=== PATIENT | female | born 1965 | race Caucasian/White ===

== ENCOUNTER 2023-04-17 16:21 | Outpatient (OUT) | payer BC, SELFPAY ==
[2023-04-17 17:07] LABS: Thyroid Stimulating Hormone 3.075 uIU/mL (0.358-3.740)
== END 2023-04-17 16:22 | disposition home or self-care (01) ==
LOC: LAB 16:21
PROVIDERS: PCP Nurse Practitioner; Visit Provider Otolaryngology
DX: E03.9 Hypothyroidism, unspecified (principal)
CPT/HCPCS: 36415; 84443

== ENCOUNTER 2023-08-17 10:16 | Outpatient (OUT) | payer BC, SELFPAY ==
[2023-08-17 10:50] LABS: Basophils Percent Auto 0.4 % (0.2-2.0); Eosinophils Absolute Auto 0.1 10^3/uL (0.0-0.7); Eosinophils Percent Auto 1.6 % (0.9-7.0); Hematocrit 35.6 % (36.0-48.0); Immature Granulocytes Abs Auto 0.01 10^3/uL (0.00-0.03); Immature Granulocytes Pct Auto 0.1 % (0.0-0.5); Lymphocytes Absolute Auto 1.3 10^3/uL (1.2-3.8); Lymphocytes Percent Auto 16.8 % (20.5-60.0); Mean Corpuscular HGB Conc 33.7 g/dL (29.9-35.2); Mean Corpuscular Hemoglobin 31.7 pg (26.7-34.0); Mean Corpuscular Volume 94.2 fL (81.0-99.0); Mean Platelet Volume 8.6 fL (9.5-13.5); Monocytes Absolute Auto 0.4 10^3/uL (0.3-0.8); Neutrophils Absolute Auto 5.8 10^3/uL (1.4-6.5); Neutrophils Percent Auto 76.1 % (43.0-75.0); Platelet Count 299 10^3/uL (150-450); Red Blood Count 3.78 10^6/uL (4.20-5.40); Red Cell Distribution Width 12.4 % (11.0-15.0); White Blood Count 7.7 10^3/uL (4.0-11.0)
[2023-08-17 11:20] LABS: Alanine Aminotransferase 28 U/L (14-59); Albumin Level 3.3 g/dL (3.4-5.0); Alkaline Phosphatase 81 U/L (46-116); Anion Gap 11.7; Aspartate Amino Transferase 37 U/L (15-37); BUN Creatinine Ratio 17.9; Bilirubin Total 0.5 mg/dL (0.2-1.0); Carbon Dioxide 30.9 mmol/L (21.0-32.0); Chloride 102 mmol/L (98-107); Estimated GFR (African America >60 (>=60); Estimated GFR (Non-African Ame >60 (>=60); Glucose 106 mg/dL (74-106); Potassium 3.6 mmol/L (3.5-5.1); Sodium 141 mmol/L (136-145); Total Protein 7.2 g/dL (6.4-8.2)
[2023-08-17 11:21] LABS: Albumin Globulin Ratio 0.8; Cholesterol 142 mg/dL (<=200); Globulin 3.9 g/dL; HDL Cholesterol 47 mg/dL (40-60); Triglycerides 156 mg/dL (<=150); VLDL CHOLESTEROL 31.2 mg/dL
[2023-08-17 11:24] LABS: Estimated Average Glucose 114 mg/dL; Glycohemoglobin A1C 5.6 % (4.5-6.2)
[2023-08-17 11:53] LABS: Bilirubin Urine NEGATIVE (NEGATIVE); Blood Urine NEGATIVE (NEGATIVE); Clarity Urine CLEAR (CLEAR); Color Urine YELLOW (YELLOW); Glucose Urine UA NEGATIVE (NEGATIVE); Ketones Urine TRACE mg/dL (NEGATIVE); Leukocyte Esterase Urine SMALL (NEGATIVE); Nitrite Urine NEGATIVE (NEGATIVE); Protein Urine NEGATIVE (NEG/TRACE); Urobilinogen Urine 0.2 EU/dL (0.2-1.0)
[2023-08-17 12:03] LABS: Bacteria Urine TRACE #/HPF (NONE SEEN); Cast Seen? NONE SEEN #/LPF (NONE SEEN); Crystals Seen? None Seen #/HPF (None Seen); Mucus Urine NONE SEEN (NONE SEEN); Squamous Epithelial Cell Urine MODERATE #/LPF (NONE/RARE)
== END 2023-08-17 10:17 | disposition home or self-care (01) ==
LOC: LAB 10:18
PROVIDERS: PCP Nurse Practitioner; Visit Provider Nurse Practitioner
DX: E78.1 Pure hyperglyceridemia (principal); I10 Essential (primary) hypertension; R73.03 Prediabetes
CPT/HCPCS: 36415; 80053; 80061; 81001; 83036; 85025

== ENCOUNTER 2023-09-18 13:18 | Outpatient (OUT) | payer BC, SELFPAY ==
--- OUTSIDE RECORDS SUMMARY | 2023-09-18 13:21 | XMS_ITS | CCD ---
Author Name Unknown Address [address] [facility] [address] [place] [address] Organization [facility] Care Team Providers Care Collector Of Internal Revenue Name Role Phone AICHHOLZ, APPLICATION SUPPORT LEAD MIKEY Attending Unavailable AICHHOLZ, APPLICATION SUPPORT LEAD MIKEY Admitting Unavailable AICHHOLZ, APPLICATION SUPPORT LEAD MIKEY Primary Care Unavailable AICHHOLZ, APPLICATION SUPPORT LEAD MIKEY Consulting Unavailable AICHHOLZ, APPLICATION SUPPORT LEAD MIKEY Primary Care Unavailable RAF NGUYEN Attending Unavailable PATRICK, RAF Admitting Unavailable John Mcdonough Consulting Unavailable RAF NGUYEN Consulting Unavailable AICHHOLZ, APPLICATION SUPPORT LEAD MIKEY Primary Care Unavailable RAF NGUYEN Attending Unavailable PATRICK, RAF Admitting Unavailable ENVILLE, DR MEGAN Glaser Consulting Unavailable PATRICK, RAF Consulting Unavailable AICHHOLZ, APPLICATION SUPPORT LEAD MIKEY Primary Care Unavailable TIMMIS, DR DIXON Attending Unavailable TIMMIS, DR DIXON Admitting Unavailable TIMMIS, DR DIXON Consulting Unavailable AICHHOLZ, APPLICATION SUPPORT LEAD MIKEY Primary Care Unavailable RAF NGUYEN Attending Unavailable John Mcdonough Consulting Unavailable PATRICK, RAF Admitting Unavailable ROSEANN NGUYENBERLY Consulting Unavailable AICHHOLZ, APPLICATION SUPPORT LEAD MIKEY Consulting Unavailable AICHHOLZ, APPLICATION SUPPORT LEAD MIKEY Attending Unavailable AICHHOLZ, APPLICATION SUPPORT LEAD MIKEY Admitting Unavailable AICHHOLZ, APPLICATION SUPPORT LEAD MIKEY Primary Care Unavailable AICHHOLZ, APPLICATION SUPPORT LEAD MIKEY Primary Care Unavailable DEVEN RIVAS Admitting Unavailable DEVEN RIVAS Consulting Unavailable DEVEN RIVAS Attending Unavailable MEGAN ZAMBRANO Consulting Unavailable KO ., FAROOQ Admitting Unavailable AICHHOLZ, APPLICATION SUPPORT LEAD MIKEY Primary Care Unavailable KO ., FAROOQ Attending Unavailable KO ., FAROOQ Attending Unavailable KO ., FAROOQ Admitting Unavailable AICHHOLZ, APPLICATION SUPPORT LEAD MIKEY Primary Care Unavailable KO ., FAROOQ Consulting Unavailable AICHHOLZ, APPLICATION SUPPORT LEAD MIKEY Primary Care Unavailable ROB, DEVEN Buck Admitting Unavailable ANTOLIN, DR MEGAN Glaser Consulting Unavailable DEVEN RIVAS Attending Unavailable DEVEN RIVAS Consulting Unavailable AICHHOLZ, APPLICATION SUPPORT LEAD MIKEY Attending Unavailable AICHHOLZ, APPLICATION SUPPORT LEAD MIKEY Admitting Unavailable AICHHOLZ, APPLICATION SUPPORT LEAD MIKEY Primary Care Unavailable DR MEGNA DANGELO V Consulting Unavailable AICHHOLZ, APPLICATION SUPPORT LEAD MIKEY Consulting Unavailable AICHHOLZ, APPLICATION SUPPORT LEAD MIKEY Attending Unavailable AICHHOLZ, APPLICATION SUPPORT LEAD MIKEY Admitting Unavailable AICHHOLZ, APPLICATION SUPPORT LEAD MIKEY Primary Care Unavailable AICHHOLZ, APPLICATION SUPPORT LEAD MIKEY Consulting Unavailable AICHHOLZ, APPLICATION SUPPORT LEAD MIKEY Primary Care Unavailable ROB, DEVEN Buck Attending Unavailable DEVEN RIVAS Admitting Unavailable John Mcdonough Consulting Unavailable DEVEN RIVAS Consulting Unavailable KLAUDIA BARAKAT Attending Unavailable Problems Active Problems Problem Classification Problem Date Documented Date Episodic/Chronic Disorders of lipid metabolism (4 sources) Hyperlipidemia, unspecified; Translations: [HYPERLIPIDEMIA UNSPECIFIED] Onset: 06-28-2022 Chronic Essential hypertension (4 sources) Essential (primary) hypertension; Translations: [ESSENTIAL PRIMARY HYPERTENSION] Onset: 01-17-2023 Chronic Other connective tissue disease (4 sources) Peroneal tendinitis, right leg; Translations: [PERONEAL TENDINITIS RIGHT LEG] Onset: 10-24-2022 Episodic Other nervous system disorders (1 source) Other specified mononeuropathies; Translations: [OTHER SPECIFIED MONONEUROPATHIES] Onset: 10-31-2022 Chronic Other nervous system disorders (1 source) Polyneuropathy, unspecified; Translations: [POLYNEUROPATHY UNSPECIFIED] Onset: 04-08-2022 Chronic Other nutritional; endocrine; and metabolic disorders (1 source) Obesity, unspecified; Translations: [OBESITY UNSPECIFIED] Onset: 04-08-2022 Chronic Other screening for suspected conditions (not mental disorders or infectious disease) (4 sources) Encounter for screening mammogram for malignant neoplasm of breast; Translations: [ENC SCR MAMMO MALIG NEOPLASM BREAST] Onset: 10-28-2022 Episodic Residual codes; unclassified (1 source) Family history of other malignant neoplasms of lymphoid, hematopoietic and related tissues; Translations: [FAM HX OTH MAL KEIKO LYMPH HEMATPOETC] Onset: 11-02-2022 Episodic Thyroid disorders (5 sources) Hypothyroidism, unspecified; Translations: [HYPOTHYROIDISM UNSPECIFIED] Onset: 01-24-2022 Chronic Past or Other Problems Problem Classification Problem Date Documented Da te Episodic/Chronic Diabetes mellitus without complication (5 sources) Prediabetes; Translations: [PREDIABETES] Onset: 07-02-2022 Episodic Other connective tissue disease (1 source) Pain in right foot; Translations: [PAIN IN RIGHT FOOT] Onset: 10-15-2022 Episodic Other connective tissue disease (4 sources) Pain in left foot; Translations: [PAIN IN LEFT FOOT] Onset: 08-13-2022 Episodic Other non-traumatic joint disorders (4 sources) Pain in right ankle and joints of right foot; Translations: [PAIN IN RIGHT ANKLE] Onset: 10-14-2022 Episodic Results Test Name Value Interpretation Reference Range Facility PROF CHEM 8 (BAS METB)on Anion gap [Moles/Vol] 6.5 mmol/L Normal [facility] Comment on above: Performed By: #### B MP #### [facility] [address] [place] [address] Dr. Hudson Guerrero Calcium [Mass/Vol] 9.3 mg/dL Normal 8.5-10.1 [facility] Comment on above: Performed By: #### B MP #### [facility] [address] [address] [address] Hudson Geurrero Chloride [Moles/Vol] 102 mmol/L Normal 98-107 [facility] Comment on above: Performed By: #### B MP #### [facility] [address] [address] [address] Hudson Guerrero CO2 [Moles/Vol] 32.5 mmol/L Critically high 21.0-32.0 [facility] Comment on above: Performed By: #### B MP #### [facility] [address] [address] [address] Hudson Guerrero Creatinine [Mass/Vol] 0.64 mg/dL Normal 0.55-1.02 [facility] Comment on above: Performed By: #### B MP #### [facility] [address] [address] [address] Hudson Guerrero EGFR-AF ZIMBABWEAN >60 Normal >=60 [facility] Comment on above: Performed By: #### B MP #### [facility] [address] [address] [address] Hudson Guerrero EGFR-NON AF ZIMBABWEAN >60 Normal >=60 [facility] Comment on above: Performed By: #### B MP #### [facility] [address] [address] [address] Hudson Guerrero Glucose [Mass/Vol] 100 mg/dL Normal 74-106 [facility] Comment on above: Performed By: #### B MP #### [facility] [address] [address] [address] Hudson Guerrero Potassium [Moles/Vol] 4.0 mmol/L Normal 3.5-5.1 [facility] Comment on above: Performed By: #### B MP #### [facility] [address] [address] [address] Hudson Guerrero Sodium [Moles/Vol] 137 mmol/L Normal 136-145 [facility] Comment on above: Performed By: #### B MP #### [facility] [address] [address] [address] Hudson Guerrero Urea nitrogen [Mass/Vol] 18.0 mg/dL Normal 7.0-18.0 [facility] Comment on above: Performed By: #### B MP #### [facility] [address] [address] [address] Hudson Guerrero Urea nitrogen/Creatinine [Mass ratio] 28.1 mg/mg Normal [facility] Comment on above: Performed By: #### B MP #### [facility] [address] [address] [address] Hudson Guerrero MG MAMM SCREEN 3D ISABELLA CADon 10-28-2022 MG MAMM SCREEN 3D ISABELLA CAD Patient: WAYNE PIERRE Exam Date: 10/28/2022 : 1965 Gender:F Ordering : GLENNY CEDEÑO CNP Admission #: [id number] Family : DR KLAUDIA BARAKAT Order #: [id number] CLICK HERE TO VIEW EXAM RADIOLOGY REPORT PROCEDURE: MAMMOGRAM SCREENING 3D BILATERAL CAD COMPARISON: MG MAMM SCREEN ISABELLA W CAD, 05/24/2020. MG MAMM SCREEN 3D ISABELLA CAD, 10/23/2021. INDICATIONS: Screening mammography Calculator Name NCI Breast Cancer Risk Assessment Tool 5 Year Breast Cancer Risk 0.90% Lifetime Breast Cancer Risk 5.70% Personal Breast Cancer No Personal Ovarian Cancer No Treatments None Family Cancers Mother with multiple myeloma cancer at age 74. LOCATION: [facility] BREAST COMPOSITION: Heterogeneously dense,which may obscure small masses. FINDINGS: DIAGNOSTIC CATEGORY 2--BENIGN FINDING. NO CHANGE FROM COMPARISON. Scattered benign-appearing nodules are present. Scattered benign-appearing calcifications are present. Scattered benign-appearing lymph nodes are present. RIGHT BREAST: No significant suspicious finding. LEFT BREAST: No significant suspicious finding. RECOMMENDATIONS: ROUTINE MAMMOGRAM AND CLINICAL EVALUATION IN 12 MONTHS. PLEASE NOTE: A NORMAL MAMMOGRAM DOES NOT EXCLUDE THE POSSIBILITY OF BREAST CANCER. A CLINICALLY SUSPICIOUS PALPABLE LUMP SHOULD BE BIOPSIED. Dictated by: Megan Dangelo MD on 10/29/2022 at 06:12 Approved by: Megan Dangelo MD on 10/29/2022 at 06:14 Normal [facility] MRI ANKLE RT WO CONon 2022 MRI ANKLE RT WO CON EXAM: MRI ANKLE RT W O CON HISTORY: Ankle pain COMPARISON: Ankle x-rays 10/14/2022 TECHNIQUE: Multiplanar, multi sequential MRI sequences were performed. FINDINGS: Patient is morbidly obese. No fracture, dislocation, subluxation or osseous lesion. No joint effusions. The articular cartilage is normal. The antolin pedis and tarsal tunnel exhibit no edema, hematoma, mass or cyst. The superficial subcutaneous soft tissues are free of edema, hematoma, mass or cyst. The posterior tibial, flexor digitorum longus, flexor hallucis longus, peroneus longus, peroneus brevis and anterior tendons exhibit no thickening, tear, edema or tenosynovial collections. The anterior talofibular, calcaneofibular, posterior talofibular, anterior and posterior inferior tibiofibular, syndesmotic, intermalleolar, deltoid and spring ligamentous complexes exhibit no thickening, tear or edema. Very mild chronic interstitial intermediate signal of the distal Achilles tendon with no edema or tear. The pre-Achilles and retrocalcaneal bursa are unremarkable. Mild amount of nondescript edema within the pre-Achilles fat. The soleus myotendinous junction is low-lying terminating approximately 3.7 cm proximal to the calcaneus, this is a normal anatomic variant. The sinus tarsi and plantar aponeurosis central cord are normal. No muscle edema, hematoma, atrophy or fatty infiltration. IMPRESSION: 1. Morbid obesity. 2. Very mild chronic Achilles tendinopathy. 3. Normal peroneal tendons. Electronically authenticated by: MEGAN ZAMBRANO Date: 2022-10-26 17:41 Normal [facility] GLYCOHEMOGLOBIN A1Con 2022 ADA RECOMMENDATION SEE BELOW Normal [facility] Comment on above: Result Comment: ADA RECOMMENDED LIMIT 4.0 - 6.0 ADA THERAPEUTIC TARGET < 7.0 ACTION SUGGESTED > 7.0 Performed By: #### A 1C ####[facility] [address] [address]Dr. Hudson Guerrero Glucose [Mass/Vol] 117 mg/dL Normal [facility] Comment on above: Performed By: #### A 1C ####[facility] [address] [address]Dr. Hudson Guerrero HbA1c (Bld) [Mass fraction] 5.7 % Normal 4.5-6.2 [facility] Comment on above: Performed By: #### A 1C ####[facility] [address] [address]Dr. Hudson Guerrero CBC AUTO DIFFon 06-28-2022 BASO # 0.0 103/ul Normal 0.0-0.1 [facility] Comment on above: Performed By: #### C BC #### [facility] [address] [address] [address] Hudson Guerrero Basophils/100 WBC (Bld) 0.4 % Normal 0.2-2.0 [facility] Comment on above: Performed By: #### C BC #### [facility] [address] [address] [address] Hudson Guerrero EO # 0.2 103/ul Normal 0.0-0.7 [facility] Comment on above: Performed By: #### C BC #### [facility] [address] [place] [address] Dr. Hudson Guerrero Eosinophils/100 WBC (Bld) 2.6 % Normal 0.9-7.0 [facility] Comment on above: Performed By: #### C BC #### [facility] [address] [place] [address] Dr. Hudson Guerrero Erythrocyte distribution width (RBC) [Ratio] 12.5 % Normal 11.0-15.0 [facility] Comment on above: Performed By: #### C BC #### [facility] [address] [place] [address] Dr. Hudson Guerrero Hematocrit (Bld) [Volume fraction] 36.6 % Normal 36.0-48.0 [facility] Comment on above: Performed By: #### C BC #### [facility] [address] [place] [address] Dr. Hudson Guerrero Hemoglobin (Bld) [Mass/Vol] 12.2 g/dL Normal 12.0-16.0 [facility] Comment on above: Performed By: #### C BC #### [facility] [address] [place] [address] Dr. Hudson Guerrero IG # 0.04 10e3/ul Critically high 0.00-0.03 [facility] Comment on above: Performed By: #### C BC #### [facility] [address] [place] [address] Dr. Hudson Guerrero IG % 0.5 % Normal 0.0-0.5 [facility] Comment on above: Performed By: #### C BC #### [facility] [address] [place] [address] Dr. Hudson Guerrero LYMPH # 1.5 103/ul Normal 1.2-3.8 [facility] Comment on above: Performed By: #### C BC #### [facility] [address] [place] [address] Dr. Hudson Guerrero Lymphocytes/100 WBC (Bld) 18.8 % Critically low 20.5-60.0 [facility] Comment on above: Performed By: #### C BC #### [facility] [address] [place] [address] Dr. Hudson Guerrero MANUAL DIFF REQ NO Normal [facility] Comment on above: Performed By: #### C BC #### [facility] [address] [place] [address] Dr. Hudson Guerrero MCH (RBC) [Entitic mass] 31.8 pg Normal 26.7-34.0 [facility] Comment on above: Performed By: #### C BC #### [facility] [address] [place] [address] Dr. Hudson Guerrero MCHC (RBC) [Mass/Vol] 33.3 g/dL Normal 29.9-35.2 [facility] Comment on above: Performed By: #### C BC #### [facility] [address] [place] [address] Dr. Hudson Guerrero MCV (RBC) [Entitic vol] 95.3 fL Normal 81.0-99.0 [facility] Comment on above: Performed By: #### C BC #### [facility] [address] [place] [address] Dr. Hudson Guerrero MONO # 0.5 103/ul Normal 0.3-0.8 [facility] Comment on above: Performed By: #### C BC #### [facility] [address] [place] [address] Dr. Hudson Guerrero Monocytes/100 WBC (Bld) 6.3 % Normal 1.7-12.0 [facility] Comment on above: Performed By: #### C BC #### [facility] [address] [place] [address] Dr. Hudson Guerrero NEUT # 5.6 103/ul Normal 1.4-6.5 [facility] Comment on above: Performed By: #### C BC #### [facility] [address] [place] [address] Dr. Hudson Guerrero Neutrophils/100 WBC (Bld) 71.4 % Normal 43.0-75.0 [facility] Comment on above: Performed By: #### C BC #### [facility] [address] [place] [address] Dr. Hudson Guerrero Platelet mean volume (Bld) [Entitic vol] 8.9 fL Critically low 9.5-13.5 [facility] Comment on above: Performed By: #### C BC #### [facility] [address] [address] [address] Hudson Guerrero PLT 292 103/ul Normal 150-450 [facility] Comment on above: Performed By: #### C BC #### [facility] [address] [address] [address] Hudson Guerrero RBC 3.84 106/ul Critically low 4.20-5.40 [facility] Comment on above: Performed By: #### C BC #### [facility] [address] [address] [address] Hudson Guerrero WBC 7.8 103/ul Normal 4.0-11.0 [facility] Comment on above: Performed By: #### C BC #### [facility] [address] [address] [address] Hudson Guerrero FREE T4on 06-28-2022 Free T4 [Mass/Vol] 0.91 ng/dL Normal 0.76-1.46 [facility] Comment on above: Performed By: #### F T4 ####[facility] [address] [address]Dr. Hudson Guerrero GLYCOHEMOGLOBIN A1Con 2021 ADA RECOMMENDATION SEE BELOW Normal [facility] Comment on above: Result Comment: ADA RECOMMENDED LIMIT 4.0 - 6.0 ADA THERAPEUTIC TARGET < 7.0 ACTION SUGGESTED > 7.0 Performed By: #### A 1C #### [facility] [address] [address] [address] Hudson Guerrero Glucose [Mass/Vol] 134 mg/dL Normal [facility] Comment on above: Performed By: #### A 1C #### [facility] [address] [place] [address] Dr. Hudson Guerrero HbA1c (Bld) [Mass fraction] 6.3 % Critically high 4.5-6.2 [facility] Comment on above: Performed By: #### A 1C #### [facility] [address] [place], [place] [address] Dr. Hudson Guerrero LIPID PROFILEon 06-28-2022 CHOL-HDL RATIO NORM SEE BELOW Normal [facility] Comment on above: Result Comment: 3.3 - 4.4 LOW RISK 4.4 - 7.1 AVERAGE RISK 7.1 - 11.0 MODERATE RISK >11.0 HIGH RISK Performed By: #### C MP, TSH, LIPID ####[facility] [address] [id number]. Hudson Guerrero Cholesterol [Mass/Vol] 159 mg/dL Normal <=200 [facility] Comment on above: Performed By: #### C MP, TSH, LIPID ####[facility] [address] [id number]. Hudson Guerrero Cholesterol in HDL [Mass/Vol] 45 mg/dL Normal 40-60 [facility] Comment on above: Performed By: #### C MP, TSH, LIPID ####[facility] [address] [address]Dr. Hudson Guerrero Cholesterol in LDL [Mass/Vol] 82.6 mg/dL Normal [facility] Comment on above: Performed By: #### C MP, TSH, LIPID ####[facility] [address] [id number]. Hudson Guerrero Cholesterol.total/Cho lesterol in HDL [Mass ratio] 3.5 {ratio} Normal [facility] Comment on above: Performed By: #### C MP, TSH, LIPID ####[facility] [address] [id number]. Hudson Guerrero HDL NORMAL > or = 60 mg/dl - LO W CARDIOVASCULAR RISK <40 mg/dl - HIGH CARDIOVASCULAR RISK Normal [facility] Comment on above: Performed By: #### C MP, TSH, LIPID ####[facility] [address] [id number]. Hudson Guerrero LDL CALC NORMAL SEE BELOW Normal [facility] Comment on above: Result Comment: <100 mg/dl OPTIMAL 100 - 129 mg/dl NEAR OR ABOVE OPTIMAL 130 - 159 mg/dl BORDERLINE HIGH 160 - 189 mg/dl HIGH >190 mg/dl VERY HIGH Performed By: #### C MP, TSH, LIPID ####[facility] [address] [address]Dr. Hudson Guerrero Triglyceride [Mass/Vol] 157 mg/dL Critically high <=150 [facility] Comment on above: Performed By: #### C MP, TSH, LIPID ####[facility] [address] [address]Dr. Hudson Guerrero VLDL CALC 31.4 mg/dL Normal [facility] Comment on above: Performed By: #### C MP, TSH, LIPID ####[facility] [address] [address]Dr. Hudson Guerrero PROF 14(COMP METB)on 022 Albumin [Mass/Vol] 3.7 g/dL Normal 3.4-5.0 [facility] Comment on above: Performed By: #### C MP, TSH, LIPID ####[facility] [address] [address]Dr. Hudson Guerrero Albumin/Globulin [Mass ratio] 0.9 {ratio} Normal [facility] Comment on above: Performed By: #### C MP, TSH, LIPID ####[facility] [address] [address]Dr. Hudson Guerrero ALP [Catalytic activity/Vol] 88 U/L Normal 46-116 [facility] Comment on above: Performed By: #### C MP, TSH, LIPID ####[facility] [address] [address]Dr. Hudson Guerrero ALT [Catalytic activity/Vol] 45 U/L Normal 14-59 [facility] Comment on above: Performed By: #### C MP, TSH, LIPID ####[facility] [address] [address]Dr. Hudson Guerrero Anion gap [Moles/Vol] 14.1 mmol/L Normal [facility] Comment on above: Performed By: #### C MP, TSH, LIPID ####[facility] [address] [address]Dr. Hudson Guerrero AST [Catalytic activity/Vol] 39 U/L Critically high 15-37 [facility] Comment on above: Performed By: #### C MP, TSH, LIPID ####[facility] [address] [address]Dr. Hudson Guerrero Bilirubin [Mass/Vol] 0.5 mg/dL Normal 0.2-1.0 [facility] Comment on above: Performed By: #### C MP, TSH, LIPID ####[facility] [address] [address]Dr. Hudson Guerrero Calcium [Mass/Vol] 9.3 mg/dL Normal 8.5-10.1 [facility] Comment on above: Performed By: #### C MP, TSH, LIPID ####[facility] [address] [address]Dr. Hudson Guerrero Chloride [Moles/Vol] 106 mmol/L Normal 98-107 [facility] Comment on above: Performed By: #### C MP, TSH, LIPID ####[facility] [address] [address]Dr. Hudson Guerrero CO2 [Moles/Vol] 28.5 mmol/L Normal 21.0-32.0 [facility] Comment on above: Performed By: #### C MP, TSH, LIPID ####[facility] [address] [address]Dr. Hudson Guerrero Creatinine [Mass/Vol] 0.55 mg/dL Normal 0.55-1.02 [facility] Comment on above: Performed By: #### C MP, TSH, LIPID ####[facility] [address] [address]Dr. Hudson Guerrero EGFR-AF ZIMBABWEAN >60 Normal >=60 [facility] Comment on above: Performed By: #### C MP, TSH, LIPID ####[facility] [address] [address]Dr. Hudson Guerrero EGFR-NON AF ZIMBABWEAN >60 Normal >=60 [facility] Comment on above: Performed By: #### C MP, TSH, LIPID ####[facility] [address] [place] [id number]. Hudson Guerrero Globulin (S) [Mass/Vol] 4.0 g/dL Normal [facility] Comment on above: Performed By: #### C MP, TSH, LIPID ####[facility] [address] [place] [id number]. Hudson Guerrero Glucose [Mass/Vol] 115 mg/dL Critically high 74-106 [facility] Comment on above: Performed By: #### C MP, TSH, LIPID ####[facility] [address] [place] [id number]. Hudson Guerrero Potassium [Moles/Vol] 4.6 mmol/L Normal 3.5-5.1 [facility] Comment on above: Performed By: #### C MP, TSH, LIPID ####[facility] [address] [address]Dr. Hudson Guerrero Protein [Mass/Vol] 7.7 g/dL Normal 6.4-8.2 [facility] Comment on above: Performed By: #### C MP, TSH, LIPID ####[facility] [address] [address]Dr. Hudson Guerrero Sodium [Moles/Vol] 144 mmol/L Normal 136-145 [facility] Comment on above: Performed By: #### C MP, TSH, LIPID ####[facility] [address] [place] [id number]. Hudson Guerrero Urea nitrogen [Mass/Vol] 16.0 mg/dL Normal 7.0-18.0 [facility] Comment on above: Performed By: #### C MP, TSH, LIPID ####[facility] [id number] [place] [id number]. Hudson Guerrero Urea nitrogen/Creatinine [Mass ratio] 29.1 mg/mg Normal [facility] Comment on above: Performed By: #### C MP, TSH, LIPID ####[facility] [id number] [place] [id number]. Hudson Guerrero TSHon 06-28-2022 TSH 1.163 uIU/mL Normal 0.358-3.740 [facility] Comment on above: Performed By: #### C MP, TSH, LIPID ####[facility] [id number] [place] [address]Dr. Hudson Guerrero UA RANDOM W/MICROSCOPICon BACTERIA SMALL Abnormal NONE SEEN [facility] Comment on above: Performed By: #### U AMIC #### [facility] [address] [place] [address] [address] Hudson Guerrero Bilirubin Ql (U) Negative Normal NEGATIVE [facility] Comment on above: Performed By: #### U AMIC #### [facility] [address] [place] [address] [address] Hudson Guerrero CAST NONE SEEN Normal NONE SEEN [facility] Comment on above: Performed By: #### U AMIC #### [facility] [address] [place] [address] [address] Hudson Guerrero Clarity (U) CLEAR Normal CLEAR [facility] Comment on above: Performed By: #### U AMIC #### [facility] [address] [place] [address] [address] Hudson Guerrero Color (U) LT. YELLOW Normal YELLOW [facility] Comment on above: Performed By: #### U AMIC #### [facility] [address] [place] [address] [address] Hudson Guerrero Crystals LM Nom (Urine sed) NONE SEEN Normal NONE SEEN [facility] Comment on above: Performed By: #### U AMIC #### [facility] [address] [place] [address] [address] Hudson Guerrero Epithelial cells LM Ql (Urine sed) FEW Abnormal NONE SEEN /RARE [facility] Comment on above: Performed By: #### U AMIC #### [facility] [address] [place] [address] [address] Hudson Guerrero Glucose Ql (U) Negative Normal NEGATIVE [facility] Comment on above: Performed By: #### U AMIC #### [facility] [address] [place] [address] [address] Hudson Guerrero Hemoglobin Ql (U) Negative Normal NEGATIVE [facility] Comment on above: Performed By: #### U AMIC #### [facility] [address] [place] [address] [address] Hudson Guerrero Ketones Ql (U) Negative Normal NEGATIVE [facility] Comment on above: Performed By: #### U AMIC #### [facility] [address] [place] [address] [address] Hudson Guerrero LEUKOCYTES SMALL Abnormal NEGATIVE [facility] Comment on above: Performed By: #### U AMIC #### [facility] [address] [place] [address] [address] Hudson Guerrero MUCOUS NONE SEEN Normal NONE SEEN [facility] Comment on above: Performed By: #### U AMIC #### [facility] [address] [place] [address] Dr. Hudson Guerrero Nitrite Ql (U) Negative Normal NEGATIVE [facility] Comment on above: Performed By: #### U AMIC #### [facility] [address] [place] [address] [address] Hudson Guerrero pH (U) 6.0 [pH] Normal 5-9 [facility] Comment on above: Performed By: #### U AMIC #### [facility] [address] [place] [address] [address] Hudson Guerrero RBC NONE SEEN Abnormal 0-2 [facility] Comment on above: Performed By: #### U AMIC #### [facility] [address] [place] [address] Dr. Hudson Guerrero SPEC GRAVITY 1.025 Normal 1.005-<=1.025 [facility] Comment on above: Performed By: #### U AMIC #### [facility] [address] [place] [address] [address] Hudson Guerrero UA PROTEIN Negative Normal NEGATIVE/ TRACE [facility] Comment on above: Performed By: #### U AMIC #### [facility] [address] [place] [address] Dr. Hudson Guerrero Urobilinogen Qn (U) 0.2 {Andi'U}/dL Normal 0.2 - 1. 0 [facility] Comment on above: Performed By: #### U AMIC #### [facility] [address] [place] [address] [address] Hudson Guerrero WBC 2-5 Abnormal NONE SEEN [facility] Comment on above: Performed By: #### U AMIC #### [facility] [address] [place] [address] [address] Hudson Guerrero TSHon 01-24-2022 TSH 2.622 uIU/mL Normal 0.358-3.740 [facility] Comment on above: Performed By: #### T SH #### [facility] [address] [place] [address] [address] Hudson Guerrero TSH RANGE SEE BELOW Normal [facility] Comment on above: Result Comment: <0.3 4 UIU/ml HYPERTHYROID 0.34-5.60 UIU/ml EUTHYROID >5.60 UIU/ml HYPOTHYROID Performed By: #### T SH #### [facility] [address] [place] [address] [address] Hudson Guerrero Encounters Encounter Date Encounter Type Care Provider Facility Start: 08-17-2023 End: 08-17-2023 ambulatory KLAUDIA BARAKAT Not Available Start: 01-17-2023 End: 01-18-2023 ambulatory APPLICATION SUPPORT LEAD MIKEY AICHHOLZ Facility:[facility] Start: 10-28-2022 End: 10-29-2022 ambulatory APPLICATION SUPPORT LEAD MIKEY AICHHOLZ Facility:[facility] Start: 10-24-2022 End: 10-25-2022 ambulatory APPLICATION SUPPORT LEAD MIKEY AICHHOLZ Facility:[facility] Start: 10-14-2022 End: 10-15-2022 ambulatory APPLICATION SUPPORT LEAD MIKEY AICHHOLZ Facility:[facility] Start: 10-09-2022 End: 10-10-2022 ambulatory APPLICATION SUPPORT LEAD MIKEY AICHHOLZ Facility:[facility] Start: 08-13-2022 End: 08-14-2022 ambulatory APPLICATION SUPPORT LEAD MIKEY AICHHOLZ Facility:[facility] Start: 07-04-2022 ambulatory FAROOQ Irving ty:[facility]1 Start: 06-28-2022 End: 06-29-2022 ambulatory [employer]PLICATION SUPPORT LEAD MIKEY AICHHOLZ Facility:[facility] Start: 06-03-2022 End: 06-04-2022 ambulatory GLENNY CEDEÑO Facility:[facility] Start: 04-04-2022 End: 04-05-2022 ambulatory FAROOQ [place] Facility:[facility] Start: 03-25-2022 End: 03-26-2022 ambulatory GLENNY CEDEÑO Facility:[facility] Start: 01-28-2022 End: 01-29-2022 ambulatory GLENNY CEDEÑO Facility:[facility] Start: 01-24-2022 End: 01-25-2022 ambulatory GLENNY CEDEÑO Facility:[facility] Payers Date Payer Category Payer Unknown [id number] 2.16.84 [id number] 1965 Unknown [id number] 2.16.84 [id number] 1965 Unknown [id number] 2.16.84 [id number] 1965 Unknown [id number] 2.16.84 [id number] 1965 Unknown [id number] 2.16.84 [id number] 1965 Unknown [id number] 2.16.84 [id number] 1965 Unknown [id number] 2.16.84 [id number] 1965 Unknown [id number] 2.16.84 [id number] 1965 Unknown [id number] 2.16.84 [id number] 1965 Unknown [id number] 2.16.84 0.1.783371.3.579.2.593 1965 Unknown [id number] 2.16.84 [id number] 1965 Unknown [id number] 2.16.84 [id number] 1965 Unknown [id number] 2.16.84 [id number] 1965 Unknown [id number] 2.16.840 .[id number] 1959 Unknown [id number] Clinical Note 10-14-2022 Note Date & Type Note Facility 10-14-2022 Note PROCEDURE: XR ANKLE RT MIN 3 VIEWS, XR FOOT RT MIN 3 VIEWS COMPARISON: None. HISTORY: Pain of right ankle joint FINDINGS: BONES:No acute fracture or dislocation. Mild enthesopathic spurring of the calcaneus at the Achilles and plantar insertions. Mild hallux valgus. Mild to moderate degenerative change first metatarsal-phalangeal joint SOFT TISSUES:Negative. No visible soft tissue swelling. EFFUSION:None visible. OTHER: Negative. IMPRESSION: Degenerative changes Electronically authenticated by: MEGAN DANGELO Date: 2022-10-14 11:36 [facility] Clinical Note 10-14-2022 Note Date & Type Note Facility 10-14-2022 Note PROCEDURE: XR ANKLE RT MIN 3 VIEWS, XR FOOT RT MIN 3 VIEWS COMPARISON: None. HISTORY: Pain of right ankle joint FINDINGS: BONES:No acute fracture or dislocation. Mild enthesopathic spurring of the calcaneus at the Achilles and plantar insertions. Mild hallux valgus. Mild to moderate degenerative change first metatarsal-phalangeal joint SOFT TISSUES:Negative. No visible soft tissue swelling. EFFUSION:None visible. OTHER: Negative. IMPRESSION: Degenerative changes Electronically authenticated by: MEGAN DANGELO Date: 2022-10-14 11:36 [facility] Clinical Note 08-14-2022 Note Date & Type Note Facility 08-14-2022 Note PROCEDURE: XR FOOT L T MIN 3 VIEWS HISTORY: Pain in left foot COMPARISON: XR foot left 06/03/2022 FINDINGS: BONES:Mechanical fusion of the first tarsal-metatarsal joint via plate and screws. Osteotomy and repair of head of second metatarsal. Resection of head of second proximal phalanx. No acute fracture, dislocation, bone lesion. SOFT TISSUES:Mild dorsal soft tissue swelling. EFFUSION:None visible. OTHER: Negative. IMPRESSION: 1. Stable surgical changes without evidence of hardware failure or change in alignment. Electronically authenticated by: JOHN MCDONOUGH Date: 2022-08-13 23:22 [facility] Clinical Note 06-03-2022 Note Date & Type Note Facility 06-03-2022 Note PROCEDURE: XR FOOT L T MIN 3 VIEWS HISTORY: Pain in left foot COMPARISON: XR foot left 03/25/2022 FINDINGS: BONES:Mechanical fusion of the first tarsal-metatarsal joint. Osteotomy and repair of head of second metatarsal. Resection of head of second proximal phalanx. No bone fracture or dislocation. SOFT TISSUES:No visible soft tissue swelling. EFFUSION:None visible. OTHER: Negative. IMPRESSION: 1. Stable surgical changes without evidence of hardware failure or change in alignment. 2. No acute bone abnormality. Electronically authenticated by: JOHN MCDONOUGH Date: 2022-06-03 16:04 [facility] Clinical Note 03-25-2022 Note Date & Type Note Facility 03-25-2022 Note PROCEDURE: XR FOOT L T MIN 3 VIEWS COMPARISON: 01/28/2022 HISTORY: Pain in left foot FINDINGS: BONES:Medial midfoot fusion utilizing a medial plate and screws across the first tarsometatarsal joint with 8 screws extend into the intermediate cuneiform. Remote osteotomy and fixation of the second metatarsal head with a single screw. Remote resection head of the second proximal phalanx. Shave osteotomy medial head of the first metatarsal. No acute fracture, dislocation or mechanical failure SOFT TISSUES:Negative. No visible soft tissue swelling. EFFUSION:None visible. OTHER: Negative. IMPRESSION: Stable postsurgical changes and midfoot fusion Electronically authenticated by: MEGAN DANGELO Date: 2022-03-25 19:35 [facility] Clinical Note 01-28-2022 Note Date & Type Note Facility 01-28-2022 Note PROCEDURE: XR FOOT L T MIN 3 VIEWS HISTORY: Pain COMPARISON: XR foot left 12/18/2021 FINDINGS: BONES:Fusion of the first metatarsal, medial cuneiform, and middle cuneiform via plate and screws; no evidence of hardware fracture or loosening. Prior bunionectomy. Osteotomy and repair of head of second metatarsal. Resection of distal head of second toe proximal phalanx. Mild flattening of plantar arch. SOFT TISSUES:Distal dorsal soft tissue swelling. EFFUSION:None visible. OTHER: Negative. IMPRESSION: 1. Stable surgical changes without evidence of hardware failure or change in alignment. Electronically authenticated by: JOHN MCDONOUGH Date: 2022-01-28 14:19 [facility] Summary Purpose Family History No Family History Records FoundNo Family History Records Found Advance Directives No Advanced Directives Records FoundNo Advanced Directives Records Found Additional Source Comments INFORMATION SOURCE (unrecogn ized section and content) DATE CREATED AUTHOR 01/23/2023 [facility] DATE CREATED AUTHOR AUTHOR'S ORGANIZ ATION 08/19/2023 [facility] FOR RECORDS PERTAINING TO PATIENTS WHO ARE OR HAVE BEEN ENROLLED IN A CHEMICAL DEPENDENCY/SUBSTANCEABUSE PROGRAM, SOME INFORMATION MAY BE OMITTED. This clinical summary was aggregated from multiple sources. Caution should be exercised in using it in the provision of clinical care. This summary normalizes information from multiple sources, and as a consequence, information in this document may materially change the coding, format and clinical context of patient data. In addition, data may be omitted in some cases. CLINICAL DECISIONS SHOULD BE BASED ON THE PRIMARY CLINICAL RECORDS. [facility] [employer] provides no warranty or guarantee of the accuracy or completeness of information in this document.
[2023-09-18 13:32] LABS: Bilirubin Urine NEGATIVE (NEGATIVE); Blood Urine NEGATIVE (NEGATIVE); Clarity Urine CLEAR (CLEAR); Color Urine LT. YELLOW (YELLOW); Glucose Urine UA NEGATIVE (NEGATIVE); Ketones Urine NEGATIVE (NEGATIVE); Leukocyte Esterase Urine TRACE (NEGATIVE); Nitrite Urine NEGATIVE (NEGATIVE); Protein Urine NEGATIVE (NEG/TRACE); Specific Gravity Urine 1.015 (1.005-1.025); Urine Microscopic Indicated YES; Urobilinogen Urine 0.2 EU/dL (0.2-1.0)
[2023-09-18 13:38] LABS: RBC Urine NONE SEEN #/HPF (0-2); WBC Urine NONE SEEN #/HPF (NONE SEEN)
[2023-09-18 13:39] LABS: Bacteria Urine NONE SEEN #/HPF (NONE SEEN); Cast Seen? NONE SEEN #/LPF (NONE SEEN); Crystals Seen? None Seen #/HPF (None Seen); Mucus Urine NONE SEEN (NONE SEEN); Squamous Epithelial Cell Urine FEW #/LPF (NONE/RARE)
== END 2023-09-18 13:19 | disposition home or self-care (01) ==
LOC: LAB 13:18
PROVIDERS: PCP Nurse Practitioner; Visit Provider Nurse Practitioner
DX: R31.21 Asymptomatic microscopic hematuria (principal)
CPT/HCPCS: 81001

== ENCOUNTER 2023-11-10 11:03 | Outpatient (REF) | payer BC, SELFPAY ==
[2023-11-10 14:13] LABS: Influenza Virus A Antigen Negative; Influenza Virus B Antigen Negative; Internal Control Within Normal Limits
== END 2023-11-10 11:04 | disposition home or self-care (01) ==
LOC: LAB 11:03
PROVIDERS: PCP Nurse Practitioner; Visit Provider Nurse Practitioner
DX: J06.9 Acute upper respiratory infection, unspecified (principal); R09.89 Other specified symptoms and signs involving the circulatory and respiratory systems; R51.9 Headache, unspecified
CPT/HCPCS: 87804

== ENCOUNTER 2023-12-01 15:25 | Outpatient (OUT) | payer BC, SELFPAY ==
--- NOTE | 2023-12-01 15:31 | MM_ITS ---
Patient Name: WAYNE PIERRE MR#: [id number] : 1965 Exam Date: 12/01/2023 Ordering Doctor: GLENNY Antunez CNP RADIOLOGY REPORT PROCEDURE: MM TOMOSYNTHESIS SCREENING BI COMPARISON: MG MAMM SCREEN 3D ISABELLA CAD, 10/23/2021. MG MAMM SCREEN 3D ISABELLA CAD, 10/28/2022. INDICATIONS: screening Calculator Name NCI Breast Cancer Risk Assessment Tool 5 Year Breast Cancer Risk 1.00% Lifetime Breast Cancer Risk 5.60% Personal Breast Cancer No Personal Ovarian Cancer No Treatments None Family Cancers Mother with multiple myeloma cancer at age 74. LOCATION: [facility] BREAST COMPOSITION: Heterogeneously dense,which may obscure small masses. FINDINGS: DIAGNOSTIC CATEGORY 2--BENIGN FINDING. NO CHANGE FROM COMPARISON. Scattered benign-appearing nodules are present. Scattered benign-appearing calcifications are present. Scattered benign-appearing lymph nodes are present. RIGHT BREAST: No significant suspicious finding. LEFT BREAST: No significant suspicious finding. RECOMMENDATIONS: ROUTINE MAMMOGRAM AND CLINICAL EVALUATION IN 12 MONTHS. PLEASE NOTE: A NORMAL MAMMOGRAM DOES NOT EXCLUDE THE POSSIBILITY OF BREAST CANCER. A CLINICALLY SUSPICIOUS PALPABLE LUMP SHOULD BE BIOPSIED. Dictated by: Deangelo Fontaine MD on 12/02/2023 at 09:54 Approved by: Deangelo Fontaine MD on 12/02/2023 at 09:57
--- OUTSIDE RECORDS SUMMARY | 2023-12-01 15:39 | XMS_ITS | CCD ---
Author Organization [facility] Care Team Providers Care Pick Up Driver Name Role Phone AICHHOLZ, TEAM DRIVER MIKEY Attending Unavailable AICHHOLZ, TEAM DRIVER MIKEY Admitting Unavailable AICHHOLZ, TEAM DRIVER MIKEY Primary Care Unavailable AICHHOLZ, TEAM DRIVER MIKEY Consulting Unavailable AICHHOLZ, TEAM DRIVER MIKEY Primary Care Unavailable [employer] NGUYEN Attending Unavailable [employer] NGUYEN Admitting Unavailable John Mcdonough Consulting Unavailable [employer] NGUYEN Consulting Unavailable AICHHOLZ, TEAM DRIVER MIKEY Primary Care Unavailable [employer] NGUYEN Attending Unavailable [employer] NGUYEN Admitting Unavailable DR MEGAN DANGELO V Consulting Unavailable [employer] NGUYEN Consulting Unavailable AICHHOLZ, TEAM DRIVER MIKEY Primary Care Unavailable TIMMIS, DR DIXON Attending Unavailable TIMMIS, DR DIXON Admitting Unavailable TIMMIS, DR DIXON Consulting Unavailable AICHHOLZ, TEAM DRIVER MIKEY Primary Care Unavailable ROSEANN NGUYENBERLY Attending Unavailable John Mcdonough Consulting Unavailable PATRICK, [employer] Admitting Unavailable ROSEANN NGUYENBERLY Consulting Unavailable AICHHOLZ, TEAM DRIVER MIKEY Consulting Unavailable AICHHOLZ, TEAM DRIVER MIKEY Attending Unavailable AICHHOLZ, TEAM DRIVER MIKEY Admitting Unavailable AICHHOLZ, TEAM DRIVER MIKEY Primary Care Unavailable AICHHOLZ, TEAM DRIVER MIKEY Primary Care Unavailable DEVEN RIVAS Admitting Unavailable DEVEN RIVAS Consulting Unavailable DEVEN RIVAS Attending Unavailable MEGAN ZAMBRANO Unavailable KO ., FAROOQ Admitting Unavailable AICHHOLZ, TEAM DRIVER MIKEY Primary Care Unavailable KO ., FAROOQ Attending Unavailable KO ., FAROOQ Attending Unavailable KO ., FAROOQ Admitting Unavailable AICHHOLZ, TEAM DRIVER MIKEY Primary Care Unavailable KO ., FAROOQ Consulting Unavailable AICHHOLZ, TEAM DRIVER MIKEY Primary Care Unavailable DEVEN RIVAS Admitting Unavailable DR MEGAN DANGELO V Consulting Unavailable DEVEN RIVAS Attending Unavailable DEVEN RIVAS Consulting Unavailable AICHHOLZ, TEAM DRIVER MIKEY Attending Unavailable AICHHOLZ, TEAM DRIVER MIKEY Admitting Unavailable AICHHOLZ, TEAM DRIVER MIKEY Primary Care Unavailable DR MEGAN DANGELO V Consulting Unavailable AICHHOLZ, TEAM DRIVER MIKEY Consulting Unavailable AICHHOLZ, TEAM DRIVER MIKEY Attending Unavailable AICHHOLZ, TEAM DRIVER MIKEY Admitting Unavailable AICHHOLZ, TEAM DRIVER MIKEY Primary Care Unavailable AICHHOLZ, TEAM DRIVER MIKEY Consulting Unavailable AICHHOLZ, TEAM DRIVER MIKEY Primary Care Unavailable DEVEN RIVAS Attending Unavailable DEVEN RIVAS Admitting Unavailable John [...] METB)on Anion gap [Moles/Vol] 6.5 mmol/L Normal [facility] Comment on above: Performed By: #### B MP #### [facility] [address] [address] [address] Hudson Guerrero Calcium [Mass/Vol] 9.3 mg/dL Normal 8.5-10.1 [facility] Comment on above: Performed By: #### B MP #### [facility] [address] [address] [address] Hudson Guerrero Chloride [Moles/Vol] 102 mmol/L Normal 98-107 [facility] Comment on above: Performed By: #### B MP #### [facility] [address] [address] [address] Hudson Guerrero CO2 [Moles/Vol] 32.5 mmol/L Critically high 21.0-32.0 [facility] Comment on above: Performed By: #### B MP #### [facility] [address] [address] [address] Hudson Guerrero Creatinine [Mass/Vol] 0.64 mg/dL Normal 0.55-1.02 [facility] Comment on above: Performed By: #### B MP #### [facility] [address] [address] [address] Hudson Guerrero EGFR-AF MOLDOVAN >60 Normal >=60 [facility] Comment on above: Performed By: #### B MP #### [facility] [address] [address] [address] Hudson Guerrero EGFR-NON AF MOLDOVAN >60 Normal >=60 [facility] Comment on above: Performed By: #### B MP #### [facility] [address] [address] [address] Hudson Guerrero Glucose [Mass/Vol] 100 mg/dL Normal 74-106 [facility] Comment on above: Performed By: #### B MP #### [facility] [address] [address] [address] Hudson Guerrero Potassium [Moles/Vol] 4.0 mmol/L Normal 3.5-5.1 [facility] Comment on above: Performed By: #### B MP #### [facility] [address] [address] [address] Hudson Guerrero Sodium [Moles/Vol] 137 mmol/L Normal 136-145 [facility] Comment on above: Performed By: #### B MP #### [facility] [address] [address] [address] Hudson Guerrero Urea nitrogen [Mass/Vol] 18.0 mg/dL Normal 7.0-18.0 [facility] Comment on above: Performed By: #### B MP #### [facility] [address] [address] [address] Hudson Guerrero Urea nitrogen/Creatinine [Mass ratio] 28.1 mg/mg Normal [facility] Comment on above: Performed By: #### B MP #### [facility] [address] [address] [address] Hudson Guerrero MG MAMM SCREEN 3D ISABELLA CADon 10-28-2022 MG MAMM SCREEN 3D ISABELLA CAD Patient: WAYNE PIERRE Exam Date: 10/28/2022 : 1965 Gender:F Ordering : GLENNY CEDEÑO CNP Admission #: [id number] Family : DR KLAUDIA BARAKAT Order #: [id number] CLICK HERE TO VIEW EXAM RADIOLOGY REPORT [...] myeloma cancer at age 74. LOCATION: [facility] BREAST COMPOSITION: Heterogeneously dense,which may obscure small [...] MD on 10/29/2022 at 06:14 Normal [facility] MRI ANKLE RT WO CONon 2022 MRI [...] MEGAN ZAMBRANO Date: 2022-10-26 17:41 Normal [facility] GLYCOHEMOGLOBIN A1Con 2022 ADA RECOMMENDATION SEE BELOW Normal [facility] Comment on above: Result Comment: ADA RECOMMENDED LIMIT 4.0 - 6.0 ADA THERAPEUTIC TARGET < 7.0 ACTION SUGGESTED > 7.0 Performed By: #### A 1C ####[facility] [address] [address]Dr. Hudson Guerrero Glucose [Mass/Vol] 117 mg/dL Normal [facility] Comment on above: Performed By: #### A 1C ####[facility] [address] [address]Dr. Hudson Guerrero HbA1c (Bld) [Mass fraction] 5.7 % Normal 4.5-6.2 [facility] Comment on above: Performed By: #### A 1C ####[facility] [address] [address]Dr. Hudson Guerrero CBC AUTO DIFFon 06-28-2022 BASO # 0.0 103/ul Normal 0.0-0.1 [facility] Comment on above: Performed By: #### C BC #### [facility] [address] [place] [address] Dr. Hudson Guerrero Basophils/100 WBC (Bld) 0.4 % Normal 0.2-2.0 [facility] Comment on above: Performed By: #### C BC #### [facility] [address] [address] [address] Hudson Guerrero EO # 0.2 103/ul Normal 0.0-0.7 [facility] Comment on above: Performed By: #### C BC #### [facility] [address] [address] [address] Hudson Guerrero Eosinophils/100 WBC (Bld) 2.6 % Normal 0.9-7.0 [facility] Comment on above: Performed By: #### C BC #### [facility] [address] [place] [address] Dr. Hudson Guerrero Erythrocyte distribution width (RBC) [Ratio] 12.5 % Normal 11.0-15.0 [facility] Comment on above: Performed By: #### C BC #### [facility] [address] [place] [address] Dr. Hudson Guerrero Hematocrit (Bld) [Volume fraction] 36.6 % Normal 36.0-48.0 [facility] Comment on above: Performed By: #### C BC #### [facility] [address] [place] [address] Dr. Hudson Guerrero Hemoglobin (Bld) [Mass/Vol] 12.2 g/dL Normal 12.0-16.0 [facility] Comment on above: Performed By: #### C BC #### [facility] [address] [place] [address] Dr. Hudson Guerrero IG # 0.04 10e3/ul Critically high 0.00-0.03 [facility] Comment on above: Performed By: #### C BC #### [facility] [address] [place] [address] Dr. Hudson Guerrero IG % 0.5 % Normal 0.0-0.5 [facility] Comment on above: Performed By: #### C BC #### [facility] [address] [place] [address] Dr. Hudson Guerrero LYMPH # 1.5 103/ul Normal 1.2-3.8 [facility] Comment on above: Performed By: #### C BC #### [facility] [address] [place] [address] Dr. Hudson Guerrero Lymphocytes/100 WBC (Bld) 18.8 % Critically low 20.5-60.0 [facility] Comment on above: Performed By: #### C BC #### [facility] [address] [place] [address] Dr. Hudson Guerrero MANUAL DIFF REQ NO Normal [facility] Comment on above: Performed By: #### C BC #### [facility] [address] [address] [address] Hudson Guerrero MCH (RBC) [Entitic mass] 31.8 pg Normal 26.7-34.0 [facility] Comment on above: Performed By: #### C BC #### [facility] [address] [address] [address] Hudsno Guerrero MCHC (RBC) [Mass/Vol] 33.3 g/dL Normal 29.9-35.2 [facility] Comment on above: Performed By: #### C BC #### [facility] [address] [place] [address] Dr. Hudson Guerrero MCV (RBC) [Entitic vol] 95.3 fL Normal 81.0-99.0 [facility] Comment on above: Performed By: #### C BC #### [facility] [address] [place] [address] Dr. Hudson Guerrero MONO # 0.5 103/ul Normal 0.3-0.8 [facility] Comment on above: Performed By: #### C BC #### [facility] [address] [place] [address] Dr. Hudson Guerrero Monocytes/100 WBC (Bld) 6.3 % Normal 1.7-12.0 [facility] Comment on above: Performed By: #### C BC #### [facility] [address] [place] [address] Dr. Hudson Guerrero NEUT # 5.6 103/ul Normal 1.4-6.5 [facility] Comment on above: Performed By: #### C BC #### [facility] [address] [place] [address] Dr. Hudson Guerrero Neutrophils/100 WBC (Bld) 71.4 % Normal 43.0-75.0 [facility] Comment on above: Performed By: #### C BC #### [facility] [address] [place] [address] Dr. Hudson Guerrero Platelet mean volume (Bld) [Entitic vol] 8.9 fL Critically low 9.5-13.5 [facility] Comment on above: Performed By: #### C BC #### [facility] [address] [address] [address] Hudson Guerrero PLT 292 103/ul Normal 150-450 [facility] Comment on above: Performed By: #### C BC #### [facility] [address] [address] [address] Hudson Guerrero RBC 3.84 106/ul Critically low 4.20-5.40 [facility] Comment on above: Performed By: #### C BC #### [facility] [address] [address] [address] Hudson Guerrero WBC 7.8 103/ul Normal 4.0-11.0 [facility] Comment on above: Performed By: #### C BC #### [facility] [address] [address] [address] Hudson Guerrero FREE T4on 06-28-2022 Free T4 [Mass/Vol] 0.91 ng/dL Normal 0.76-1.46 [facility] Comment on above: Performed By: #### F T4 ####[facility] [address] [address]Dr. Hudson Guerrero GLYCOHEMOGLOBIN A1Con 2021 ADA RECOMMENDATION SEE BELOW Normal [facility] Comment on above: Result Comment: ADA RECOMMENDED LIMIT 4.0 - 6.0 ADA THERAPEUTIC TARGET < 7.0 ACTION SUGGESTED > 7.0 Performed By: #### A 1C #### [facility] [address] [address] [address] Hudson Guerrero Glucose [Mass/Vol] 134 mg/dL Normal [facility] Comment on above: Performed By: #### A 1C #### [facility] [address] [address] [address] Hudson Guerrero HbA1c (Bld) [Mass fraction] 6.3 % Critically high 4.5-6.2 [facility] Comment on above: Performed By: #### A 1C #### [facility] [address] [address] [address] Hudson Guerrero LIPID PROFILEon 06-28-2022 CHOL-HDL RATIO NORM SEE BELOW Normal [facility] Comment on above: Result Comment: 3.3 - 4.4 LOW RISK 4.4 - 7.1 AVERAGE RISK 7.1 - 11.0 MODERATE RISK >11.0 HIGH RISK Performed By: #### C MP, TSH, LIPID ####[facility] [address] [place], [place] [address]Cu. Hudson Guerrero Cholesterol [Mass/Vol] 159 mg/dL Normal <=200 [facility] Comment on above: Performed By: #### C MP, TSH, LIPID ####[facility] [address] [place], [place] [address]Fu. Hudson Guerrero Cholesterol in HDL [Mass/Vol] 45 mg/dL Normal 40-60 [facility] Comment on above: Performed By: #### C MP, TSH, LIPID ####[facility] [address] [phone]. Vikkichristina Cesar Cholesterol in LDL [Mass/Vol] 82.6 mg/dL Normal [facility] Comment on above: Performed By: #### C MP, TSH, LIPID ####[facility] [address] [place], [place] [address]Br. Hudson Guerrero Cholesterol.total/Cho lesterol in HDL [Mass ratio] 3.5 {ratio} Normal [facility] Comment on above: Performed By: #### C MP, TSH, LIPID ####[facility] [address] [place], [place] [address]To. Vikkichristina Guerrero HDL NORMAL > or = 60 mg/dl - LO W CARDIOVASCULAR RISK <40 mg/dl - HIGH CARDIOVASCULAR RISK Normal [facility] Comment on above: Performed By: #### C MP, TSH, LIPID ####[facility] [address] [phone]. Vikkichristina Guerrero LDL CALC NORMAL SEE BELOW Normal [facility] [place] [facility] Comment on above: Result Comment: <100 mg/dl OPTIMAL 100 - 129 mg/dl NEAR OR ABOVE OPTIMAL 130 - 159 mg/dl BORDERLINE HIGH 160 - 189 mg/dl HIGH >190 mg/dl VERY HIGH Performed By: #### C MP, TSH, LIPID ####[facility] [address] [phone]. Hudson Guerrero Triglyceride [Mass/Vol] 157 mg/dL Critically high <=150 [facility] Comment on above: Performed By: #### C MP, TSH, LIPID ####[facility] [address] [phone]. Hudson Guerrero VLDL CALC 31.4 mg/dL Normal [facility] Comment on above: Performed By: #### C MP, TSH, LIPID ####[facility] [address] [phone]. Hudson Guerrero PROF 14(COMP METB)on 022 Albumin [Mass/Vol] 3.7 g/dL Normal 3.4-5.0 [facility] Comment on above: Performed By: #### C MP, TSH, LIPID ####[facility] [address] [address]Dr. Hudson Guerrero Albumin/Globulin [Mass ratio] 0.9 {ratio} Normal [facility] Comment on above: Performed By: #### C MP, TSH, LIPID ####[facility] [address] [address]Dr. Hudson Guerrero ALP [Catalytic activity/Vol] 88 U/L Normal 46-116 [facility] Comment on above: Performed By: #### C MP, TSH, LIPID ####[facility] [address] [phone]. Hudson Guerrero ALT [Catalytic activity/Vol] 45 U/L Normal 14-59 [facility] Comment on above: Performed By: #### C MP, TSH, LIPID ####[facility] [address] [phone]. Hudson Guerrero Anion gap [Moles/Vol] 14.1 mmol/L Normal [facility] Comment on above: Performed By: #### C MP, TSH, LIPID ####[facility] [address] [phone]. Hudson Guerrero AST [Catalytic activity/Vol] 39 U/L Critically high 15-37 [facility] Comment on above: Performed By: #### C MP, TSH, LIPID ####[facility] [address] [address]Dr. Hudson Guerrero Bilirubin [Mass/Vol] 0.5 mg/dL Normal 0.2-1.0 [facility] Comment on above: Performed By: #### C MP, TSH, LIPID ####[facility] [address] [address]Dr. Hudson Guerrero Calcium [Mass/Vol] 9.3 mg/dL Normal 8.5-10.1 [facility] Comment on above: Performed By: #### C MP, TSH, LIPID ####[facility] [address] [address]Dr. Hudson Guerrero Chloride [Moles/Vol] 106 mmol/L Normal 98-107 [facility] Comment on above: Performed By: #### C MP, TSH, LIPID ####[facility] [address] [place], [place] [address]Dr. Hudson Guerrero CO2 [Moles/Vol] 28.5 mmol/L Normal 21.0-32.0 [facility] Comment on above: Performed By: #### C MP, TSH, LIPID ####[facility] [address] [place], [place] [address]Dr. Hudson Guerrero Creatinine [Mass/Vol] 0.55 mg/dL Normal 0.55-1.02 [facility] Comment on above: Performed By: #### C MP, TSH, LIPID ####[facility] [address] [address]Dr. Hudson Guerrero EGFR-AF MOLDOVAN >60 Normal >=60 [facility] Comment on above: Performed By: #### C MP, TSH, LIPID ####[facility] [address] [address]Dr. Hudson Guerrero EGFR-NON AF MOLDOVAN >60 Normal >=60 [facility] Comment on above: Performed By: #### C MP, TSH, LIPID ####[facility] [address] [place], [place] [address]Dr. Yilan Guerrero Globulin (S) [Mass/Vol] 4.0 g/dL Normal [facility] Comment on above: Performed By: #### C MP, TSH, LIPID ####[facility] [address] [address]Dr. Hudson Guerrero Glucose [Mass/Vol] 115 mg/dL Critically high 74-106 T [facility] Comment on above: Performed By: #### C MP, TSH, LIPID ####[facility] [address] [address]Dr. Hudson Guerrero Potassium [Moles/Vol] 4.6 mmol/L Normal 3.5-5.1 [facility] Comment on above: Performed By: #### C MP, TSH, LIPID ####[facility] [address] [address]Dr. Hudson Guerrero Protein [Mass/Vol] 7.7 g/dL Normal 6.4-8.2 [facility] Comment on above: Performed By: #### C MP, TSH, LIPID ####[facility] [address] [address]Dr. Hudson Guerrero Sodium [Moles/Vol] 144 mmol/L Normal 136-145 [facility] Comment on above: Performed By: #### C MP, TSH, LIPID ####[facility] [address] [address]Dr. Hudson Guerrero Urea nitrogen [Mass/Vol] 16.0 mg/dL Normal 7.0-18.0 [facility] Comment on above: Performed By: #### C MP, TSH, LIPID ####[facility] [address] [address]Dr. Hudson Guerrero Urea nitrogen/Creatinine [Mass ratio] 29.1 mg/mg Normal [facility] Comment on above: Performed By: #### C MP, TSH, LIPID ####[facility] [address] [address]Dr. Hudson Guerrero TSHon 06-28-2022 TSH 1.163 uIU/mL Normal 0.358-3.740 [facility] Comment on above: Performed By: #### C MP, TSH, LIPID ####[facility] [address] [address]Dr. Hudson Guerrero UA RANDOM W/MICROSCOPICon BACTERIA SMALL Abnormal NONE SEEN [facility] Comment on above: Performed By: #### U AMIC #### [facility] [address] [address] [address] Hudson Guerrero Bilirubin Ql (U) Negative Normal NEGATIVE [facility] Comment on above: Performed By: #### U AMIC #### [facility] [address] [address] [address] Hudson Guerrero CAST NONE SEEN Normal NONE SEEN [facility] Comment on above: Performed By: #### U AMIC #### [facility] [address] [place] [address] Dr. Hudson Guerrero Clarity (U) CLEAR Normal CLEAR [facility] Comment on above: Performed By: #### U AMIC #### [facility] [address] [address] [address] Hudson Guerrero Color (U) LT. YELLOW Normal YELLOW [facility] Comment on above: Performed By: #### U AMIC #### [facility] [address] [address] [address] Hudson Guerrero Crystals LM Nom (Urine sed) NONE SEEN Normal NONE SEEN [facility] Comment on above: Performed By: #### U AMIC #### [facility] [address] [address] [address] Hudson Guerrero Epithelial cells LM Ql (Urine sed) FEW Abnormal NONE SEEN /RARE [facility] Comment on above: Performed By: #### U AMIC #### [facility] [address] [address] [address] Hudson Guerrero Glucose Ql (U) Negative Normal NEGATIVE [facility] Comment on above: Performed By: #### U AMIC #### [facility] [address] [address] [address] Hudson Guerrero Hemoglobin Ql (U) Negative Normal NEGATIVE [facility] Comment on above: Performed By: #### U AMIC #### [facility] [address] [address] [address] Hudson Guerrero Ketones Ql (U) Negative Normal NEGATIVE [facility] Comment on above: Performed By: #### U AMIC #### [facility] [address] [place] [address] Dr. Hudson Guerrero LEUKOCYTES SMALL Abnormal NEGATIVE [facility] Comment on above: Performed By: #### U AMIC #### [facility] [address] [address] [address] Hudson Guerrero MUCOUS NONE SEEN Normal NONE SEEN [facility] Comment on above: Performed By: #### U AMIC #### [facility] [address] [address] [address] Hudson Guerrero Nitrite Ql (U) Negative Normal NEGATIVE [facility] Comment on above: Performed By: #### U AMIC #### [facility] [address] [place] [address] Dr. Hudson Guerrero pH (U) 6.0 [pH] Normal 5-9 [facility] Comment on above: Performed By: #### U AMIC #### [facility] [address] [place] [address] Dr. Hudson Guerrero RBC NONE SEEN Abnormal 0-2 [facility] Comment on above: Performed By: #### U AMIC #### [facility] [address] [place] [address] Dr. Hudson Guerrero SPEC GRAVITY 1.025 Normal 1.005-<=1.025 [facility] [place] [facility] Comment on above: Performed By: #### U AMIC #### [facility] [address] [place] [address] Dr. Hudson Guerrero UA PROTEIN Negative Normal NEGATIVE/ TRACE [facility] Comment on above: Performed By: #### U AMIC #### [facility] [address] [place] [address] Dr. Hudson Guerrero Urobilinogen Qn (U) 0.2 {Andi'U}/dL Normal 0.2 - 1. 0 [facility] Comment on above: Performed By: #### U AMIC #### [facility] [address] [address] [address] Hudson Guerrero WBC 2-5 Abnormal NONE SEEN [facility] Comment on above: Performed By: #### U AMIC #### [facility] [address] [address] [address] Hudson Guerrero TSHon 01-24-2022 TSH 2.622 uIU/mL Normal 0.358-3.740 [facility] Comment on above: Performed By: #### T SH #### [facility] [address] [address] [address] Hudson Guerrero TSH RANGE SEE BELOW Normal [facility] Comment on above: Result Comment: <0.3 4 UIU/ml HYPERTHYROID 0.34-5.60 UIU/ml EUTHYROID >5.60 UIU/ml HYPOTHYROID Performed By: #### T SH #### [facility] [address] [address] [address] Hudson Guerrero Encounters Encounter Date Encounter Type Care Provider Facility Start: 08-17-2023 End: 08-17-2023 ambulatory KLAUDIA BARAKAT Not Available Start: 01-17-2023 End: 01-18-2023 ambulatory TEAM DRIVER IMKEY AICHHOLZ Facility:[facility] Start: 10-28-2022 End: 10-29-2022 ambulatory TEAM DRIVER MIKEY AICHHOLZ Facility:[facility] Start: 10-24-2022 End: 10-25-2022 ambulatory TEAM DRIVER MIKEY AICHHOLZ Facility:[facility] Start: 10-14-2022 End: 10-15-2022 ambulatory TEAM DRIVER MIKEY AICHHOLZ Facility:[facility] Start: 10-09-2022 End: 10-10-2022 ambulatory TEAM DRIVER MIKEY AICHHOLZ Facility:[facility] Start: 08-13-2022 End: 08-14-2022 ambulatory TEAM DRIVER MIKEY AICHHOLZ Facility:[facility] Start: 07-04-2022 ambulatory FAROOQ Irving ty:[facility] Start: 06-28-2022 End: 06-29-2022 ambulatory TEAM DRIVER MIKEY AICHHOLZ Facility:[facility] Start: 06-03-2022 End: 06-04-2022 ambulatory TEAM DRIVER MIKEY AICHHOLZ Facility:[facility] Start: 04-04-2022 End: 04-05-2022 ambulatory FAROOQ Van Facility:[facility] Start: 03-25-2022 End: 03-26-2022 ambulatory GLENNY CEDEÑO Facility:[facility] Start: 01-28-2022 End: 01-29-2022 ambulatory GLENNY CEDEÑO Facility:[facility] Start: 01-24-2022 End: 01-25-2022 ambulatory GLENNY CEDEÑO Facility:[facility] Payers Date Payer Category Payer Unknown [id number] 2.16.84 [id number] 1965 Unknown [id number] 2.16.84 [id number] 1965 Unknown [id number] 2.16.84 [id number] 1965 Unknown [id number] 2.16.84 [id number] 1965 Unknown [id number] 2.16.84 [id number] 1965 Unknown [id number] 2.16.84 [id number] 1965 Unknown [id number] 2.16.84 [id number] 1965 Unknown [id number] 2.16.84 [id number] 1965 Unknown [id number] 2.16.84 [id number] 1965 Unknown [id number] 2.16.84 [id number] 1965 Unknown [id number] 2.16.84 [id number] 1965 Unknown [id number] 2.16.84 [id number] 1965 Unknown [id number] 2.16.84 [id number] 1965 Unknown [id number] 2.16.840 .[id number] 1959 Unknown [id number] Clinical Note 10-14-2022 Note Date & Type [...] by: MEGAN DANGELO Date: 2022-10-14 11:36 [facility] Clinical Note 10-14-2022 Note Date & Type [...] by: MEGAN DANGELO Date: 2022-10-14 11:36 [facility] Clinical Note 08-14-2022 Note Date & [...] by: JOHN MCDONOUGH Date: 2022-08-13 23:22 [facility] Clinical Note 06-03-2022 Note Date & Type [...] by: JOHN MCDONOUGH Date: 2022-06-03 16:04 [facility] Clinical Note 03-25-2022 Note Date & Type [...] by: MEGAN DANGELO Date: 2022-03-25 19:35 [facility] Clinical Note 01-28-2022 Note Date & Type [...] by: JOHN MCDONOUGH Date: 2022-01-28 14:19 [facility] Summary Purpose Family History No Family History Records FoundNo Family History Records Found Advance Directives No Advanced Directives Records FoundNo Advanced Directives Records Found Additional Source Comments INFORMATION SOURCE (unrecogn ized section and content) DATE CREATED AUTHOR 01/23/2023 [facility] DATE CREATED AUTHOR AUTHOR'Sekou BAJWA 08/19/2023 [facility] FOR RECORDS PERTAINING TO PATIENTS WHO ARE [...] BE BASED ON THE PRIMARY CLINICAL RECORDS. [facility] [employer] [facility]. provides no warranty or guarantee of the accuracy or completeness of information in this document.
== END 2023-12-01 15:26 | disposition home or self-care (01) ==
LOC: MAMMO 15:25
PROVIDERS: PCP Nurse Practitioner; Visit Provider Nurse Practitioner
DX: Z12.31 Encounter for screening mammogram for malignant neoplasm of breast (principal); Z80.7 Family history of other malignant neoplasms of lymphoid, hematopoietic and related tissues
CPT/HCPCS: 77063; 77067

== ENCOUNTER 2024-01-26 16:47 | Outpatient (OUT) | payer BC, SELFPAY ==
[2024-01-26 17:28] LABS: Thyroid Stimulating Hormone 3.867 uIU/mL (0.358-3.740)
== END 2024-01-26 16:48 | disposition home or self-care (01) ==
LOC: LAB 16:48
PROVIDERS: PCP Nurse Practitioner; Visit Provider Otolaryngology
DX: E03.9 Hypothyroidism, unspecified (principal)
CPT/HCPCS: 36415; 84443

== ENCOUNTER 2024-03-10 16:21 | Outpatient (OUT) | payer BC, SELFPAY ==
[2024-03-10 17:18] LABS: Thyroid Stimulating Hormone 0.519 uIU/mL (0.358-3.740)
== END 2024-03-10 16:22 | disposition home or self-care (01) ==
PROVIDERS: PCP Nurse Practitioner; Visit Provider Otolaryngology
DX: E03.9 Hypothyroidism, unspecified (principal)
CPT/HCPCS: 36415; 84443

== ENCOUNTER 2024-09-10 11:44 | Outpatient (OUT) | payer BC, SELFPAY ==
--- OUTSIDE RECORDS SUMMARY | 2024-09-10 11:48 | XMS_ITS | CCD ---
Author Organization [facility] Care Team Providers Care Subcontracts Manager Name Role Phone AICHHOLZ, PUBLIC RELATIONS PLAYER BIJAL Attending Unavailable AICHHOLZ, PUBLIC RELATIONS PLAYER BIJAL Admitting Unavailable AICHHOLZ, PUBLIC RELATIONS PLAYER BIJAL Primary Care Unavailable AICHHOLZ, PUBLIC RELATIONS PLAYER BIJAL Consulting Unavailable AICHHOLZ, PUBLIC RELATIONS PLAYER BIJAL Primary Care Unavailable RAF NGUYEN Attending Unavailable PATRICK, RAF Admitting Unavailable John Mcdonough Consulting Unavailable RAF NGUYEN Consulting Unavailable AICHHOLZ, PUBLIC RELATIONS PLAYER BIJAL Primary Care Unavailable RAF NGUEYN Attending Unavailable PATRICK RAF Admitting Unavailable WESTPOINT, DR MEGAN Glaser Consulting Unavailable PATRICK, RAF Consulting Unavailable AICHHOLZ, PUBLIC RELATIONS PLAYER BIJAL Primary Care Unavailable TIMMIS, DR DIXON Attending Unavailable TIMMIS, DR DIXON Admitting Unavailable TIMMIS, DR DIXON Consulting Unavailable AICHHOLZ, PUBLIC RELATIONS PLAYER BIJAL Primary Care Unavailable PATRICK RAF Attending Unavailable John Mcdonough Consulting Unavailable PATRICK, RAF Admitting Unavailable RAF NGUYEN Consulting Unavailable AICHHOLZ, PUBLIC RELATIONS PLAYER BIJAL Consulting Unavailable AICHHOLZ, PUBLIC RELATIONS PLAYER BIJAL Attending Unavailable AICHHOLZ, PUBLIC RELATIONS PLAYER BIJAL Admitting Unavailable AICHHOLZ, PUBLIC RELATIONS PLAYER BIJAL Primary Care Unavailable AICHHOLZ, PUBLIC RELATIONS PLAYER BIJAL Primary Care Unavailable DEVEN RIVAS Admitting Unavailable DEVEN RIVAS Consulting Unavailable DEVEN RIVAS Attending Unavailable MEGAN ZAMBRANO Consulting Unavailable KO ., FAROOQ Admitting Unavailable AICHHOLZ, PUBLIC RELATIONS PLAYER BIJAL Primary Care Unavailable KO ., FAROOQ Attending Unavailable KO ., FAROOQ Attending Unavailable KO ., FAROOQ Admitting Unavailable AICHHOLZ, PUBLIC RELATIONS PLAYER BIJAL Primary Care Unavailable KO ., FAROOQ Consulting Unavailable AICHHOLZ, PUBLIC RELATIONS PLAYER BIJAL Primary Care Unavailable DEVEN RIVAS Admitting Unavailable DR MEGAN DANGELO V Consulting Unavailable DEVEN RIVAS Attending Unavailable DEVEN RIVAS Consulting Unavailable AICHHOLZ, GLENNY BIJAL Attending Unavailable AICHHOLZ, PUBLIC RELATIONS PLAYER BIJAL Admitting Unavailable AICHHOLZ, PUBLIC RELATIONS PLAYER BIJAL Primary Care Unavailable DR MEGAN DANGELO V Consulting Unavailable AICHHOLZ, GLENNY BIJAL Consulting Unavailable AICHHOLZ, PUBLIC RELATIONS PLAYER BIJAL Attending Unavailable AICHHOLZ, PUBLIC RELATIONS PLAYER BIJAL Admitting Unavailable AICHHOLZ, PUBLIC RELATIONS PLAYER BIJAL Primary Care Unavailable AICHHOLZ, PUBLIC RELATIONS PLAYER BIJAL Consulting Unavailable AICHHOLZ, PUBLIC RELATIONS PLAYER BIJAL Primary Care Unavailable DEVEN RIVAS Attending Unavailable DEVEN RIVAS Admitting Unavailable John Mcdonough Consulting Unavailable DEVEN RIVAS Consulting Unavailable Charan Quinn MD Primary Care Provider Aichholnoy GAME FARM HELPER, Bijal Unavailable Aichholnoy GAME FARM HELPER, Bijal Unavailable GALA, BIJAL Attending Unavailable DESTINY YANG Attending Unavailable DESTINY YANG Attending Unavailable TRINIDADHOLZ, BIJAL Attending Unavailable AICHHOLZ, BIJAL Attending Unavailable AICMalgorzataHOLZ, BIJAL Attending Unavailable KLAUDIA BARAKAT Attending Unavailable Medications Current Medications Medication Drug Class(es) Dates Sig (Normalized) Sig (Original) [id number] 200 actuat albuterol 0.09 mg/actuat metered dose inhaler (10 sources) beta2-Adrenergic Agonist Start: 11-09-2023 take 2 puff(s) by inhalation every four hours for wheezing albuterol HFA 90 mcg/act inhaler Indications: Wheezing Inhale 2 puffs every 4 (four) hours if needed for wheezing 18 g 2 11/09/2023 Active amoxicillin 875 mg / clavulanate 125 mg oral tablet (3 sources) Penicillin-class Antibacterial Start: 08-17-2024 End: 08-27-2024 take 1 tablet by mouth in the morning amoxicillin-clavulana te (Augmentin) 875-125 MG tablet Indications: Acute non-recurrent maxillary sinusitis Take 1 tablet (875 mg) by mouth in the morning and 1 tablet (875 mg) before bedtime. Do all this for 10 days. Take with food. 20 tablet 08/17/2024 08/27/2024 Active atorvastatin 40 mg oral tablet (11 sources) HMG-CoA Reductase Inhibitor Start: 04-25-2024 End: 11-15-2024 take 1 tablet by mouth at bedtime atorvastatin (Lipitor) 40 MG tablet Indications: Pure hyperglyceridemia (CMS/HCC) Take 1 tablet (40 mg) by mouth at bedtime 90 tablet 1 08/17/2024 11/15/2024 Active cholecalciferol 0.025 mg oral tablet (10 sources) Vitamin D take 1 tablet by mouth once daily cholecalciferol (Vitamin D-3) 25 MCG tablet Take 1 tablet by mouth Daily Active take 3 tablets by mouth in the m orning cholecalciferol (Vitamin D-3) 25 MCG tablet Take 3 tablets by mouth in the morning. Active cyclobenzaprine hydrochloride 5 mg oral tablet (10 sources) Muscle Relaxant cyclobenzaprine (Flexeril) 5 MG tablet Take 1 tablet by mouth as needed at bedtime for muscle spasms Active Elastic Bandages & Supports (JOBST KNEE HIGH COMPRESSION SM) misc (10 sources) Elastic Bandages & Supports (JOBST KNEE HIGH COMPRESSION SM) misc 1 Units in the morning. Jobst UltraSheer 20-30 mmHg Large - knee high compression hose. On in AM off in PM. Active estradiol 2 mg oral tablet (11 sources) Estrogen Start: 08-22-20 take 1 tablet by mouth once daily estradiol (Estrace) 2 MG tablet Indications: Hormone replacement therapy Take 1 tablet (2 mg) by mouth Daily 90 tablet 3 08/22/2024 Active Start: 08-19-2024 End: 08-22-2024 take 1 tablet by mouth once daily estradiol (Estrace) 2 MG tablet Indications: Hormone replacement therapy TAKE 1 TABLET BY MOUTH ONCE DAILY at same time OF day 30 tablet 1 08/19/2024 08/22/2024 Discontinued (Reorder) Start: 07-05-2024 take 1 tablet by ralph th once daily estradiol (Estrace) 2 MG tablet Indications: Hormone replacement therapy Take 1 tablet (2 mg) by mouth 1 (one) time each day at the same time 30 tablet 1 07/05/2024 Active Start: 08-17-2023 take 1 tablet by ralph th once daily estradiol (Estrace) 2 MG tablet Indications: Hormone replacement therapy Take 1 tablet (2 mg) by mouth 1 (one) time each day at the same time 90 tablet 3 08/17/2023 Active ferrous sulfate 325 mg oral tablet (10 sources) take 1 tablet by ralph th at mealtime ferrous sulfate 325 (65 Fe) MG tablet Take 325 mg by mouth in the morning. Take with meals. Active ferrous sulfate 325 (65 Fe) MG tablet Take 325 mg by mouth every 12 (twelve) hours. Active fexofenadine hydrochloride 180 mg oral tablet (10 sources) Histamine-1 Receptor Antagonist take 1 tablet by mouth in the morning fexofenadine (Conchis) 180 MG tablet Take 180 mg by mouth in the morning. Active hydroCHLOROthiazide 25 mg oral tablet (11 sources) Thiazide Diuretic Start : 03-07 End: 11-15 take 1 tablet by mouth twice daily as needed hydroCHLOROthiazide (HYDRODiuril) 25 MG tablet Indications: Bilateral lower extremity edema , Essential (primary) hypertension (CMS/HCC) Take 1 tablet (25 mg) by mouth 2 (two) times a day as needed (swelling) 180 tablet 1 08/17/2024 11/15/2024 Active ibuprofen 800 mg oral tablet (10 sources) Nonsteroidal Anti-inflammatory Drug Start : 12-27 End: 09-07 take 1 tablet by mouth three times daily as needed for pain ibuprofen 800 MG tablet Indications: Other chronic pain Take 1 tablet (800 mg) by mouth 3 (three) times a day as needed for moderate pain 90 tablet 1 08/08/2024 09/07/2024 Active levothyroxine sodium 0.15 mg oral tablet (10 sources) l-Thyroxine Start : 04-04 End: 04-04 take 1 tablet by mouth before mealtime levothyroxine (Synthroid) 150 MCG tablet Indications: Acquired hypothyroidism (CMS/HCC) Take 1 tablet (150 mcg) by mouth in the morning. Take before meals. 90 tablet 3 04/04/2024 04/04/2025 Active lisinopril 20 mg oral tablet (11 sources) Angiotensin Converting Enzyme Inhibitor Start : 02-17 End: 11-15 take 1 tablet by mouth once daily lisinopril 20 MG tablet Indications: Essential (primary) hypertension (CMS/HCC) Take 1 tablet (20 mg) by mouth Daily 90 tablet 1 08/17/2024 11/15/2024 Active nystatin [id number] unt/ml / triamcinolone acetonide 1 mg/ml topical cream (10 sources) Polyene Antifungal, Corticosteroid nystatin-triamcinolo ne (Mycolog II) cream Apply 1 application topically every 12 (twelve) hours. Active Semaglutide-Weight Management (Wegovy) 2.4 MG/0.75ML solution auto-injector (10 sources) Start : 08-17 End: 09-14 Semaglutide-Weight Management (Wegovy) 2.4 MG/0.75ML solution auto-injector Indications: Class 3 severe obesity due to excess calories without serious comorbidity with body mass index (BMI) of 45.0 to 49.9 in adult ([facility]) Inject 2.4 mg under the skin every 7 (seven) days for 28 days g 3 mL 3 08/17/2024 09/14/2024 Active Start: 08-10-2024 End: 08-17-2024 Semaglutide-Weight Managemen t (Wegovy) 2.4 MG/0.75ML solution auto-injector Indications: Class 3 severe obesity due to excess calories without serious comorbidity with body mass index (BMI) of 45.0 to 49.9 in adult ([facility]) Inject 2.4 mg under the skin every 7 (seven) days for 28 days g 3 mL 1 08/10/2024 08/17/2024 Discontinued (Reorder) Start: 08-10-2024 End: 09-07-2024 Semaglutide-Weight Managemen t (Wegovy) 2.4 MG/0.75ML solution auto-injector Indications: Class 3 severe obesity due to excess calories without serious comorbidity with body mass index (BMI) of 45.0 to 49.9 in adult ([facility]) Inject 2.4 mg under the skin every 7 (seven) days for 28 days g 3 mL 1 08/10/2024 09/07/2024 Active Start: 05-25-2024 End: 06-22-2024 Semaglutide-Weight Managemen t (Wegovy) 2.4 MG/0.75ML solution auto-injector Indications: Class 3 severe obesity due to excess calories without serious comorbidity with body mass index (BMI) of 45.0 to 49.9 in adult ([facility]) Inject 2.4 mg under the skin every 7 (seven) days for 28 days 3 mL 2 05/25/2024 06/22/2024 Active Tirzepatide-Weight Managemen t (Zepbound) 2.5 MG/0.5ML solution auto-injector (2 sources) Start: 09-08-2024 End: 10-06-2024 Tirzepatide-Weight Managemen t (Zepbound) 2.5 MG/0.5ML solution auto-injector Indications: Class 3 severe obesity due to excess calories without serious comorbidity with body mass index (BMI) of 40.0 to 44.9 in adult ([facility]) Inject 2.5 mg under the skin 1 (one) time per week for 28 days 2 mL 09/08/2024 10/06/2024 Active End: 09-08-2024 inject 2.5 mg by subcutaneous injection every week Tirzepatide-Weight Management (Zepbound) 2.5 MG/0.5ML solution auto-injector Inject 2.5 mg under the skin 1 (one) time per week 09/08/2024 Discontinued (Reorder) Wegovy 2.4 MG/0.75ML solutio n auto-injector (1 source) Start: 07-31-2024 End: 08-10-2024 Wegovy 2.4 MG/0.75ML solutio n auto-injector Inject 2.4 mg under the skin every 7 (seven) days g 07/31/2024 08/10/2024 Discontinued (Reorder) Completed/Discontinued Medications Medication Drug Class(es) Dates Sig (Normalized) Sig (Original) MULTIPLE VITAMIN PO (8 sources) End: 08-17-2024 take 1 tablet by mouth once daily MULTIPLE VITAMIN PO Take 1 tablet by mouth 1 (one) time each day at the same time. 08/17/2024 Discontinued (Therapy completed) take 1 tablet by mouth once eligio y MULTIPLE VITAMIN PO Take 1 tablet by mouth 1 (one) time each day at the same time. Active Semaglutide-Weight Managemen t (Wegovy) 1.7 MG/0.75ML solution auto-injector (3 sources) Start: 04-29-2024 End: 05-25-2024 Semaglutide-Weight Managemen t (Wegovy) 1.7 MG/0.75ML solution auto-injector Indications: Class 3 severe obesity due to excess calories without serious comorbidity with body mass index (BMI) of 45.0 to 49.9 in adult ([facility]) Inject 1.7 mg under the skin every 7 (seven) days for 28 days 3 mL 04/29/2024 05/25/2024 Discontinued (Therapy completed) Start: 04-29-2024 End: 05-27-2024 Semaglutide-Weight Managemen t (Wegovy) 1.7 MG/0.75ML solution auto-injector Indications: Class 3 severe obesity due to excess calories without serious comorbidity with body mass index (BMI) of 45.0 to 49.9 in adult ([facility]) Inject 1.7 mg under the skin every 7 (seven) days for 28 days 3 mL 04/29/2024 05/27/2024 Active Problems Active Problems Problem Classification Problem Date Documented Date Episodic/Chronic Disorders of lipid metabolism (6 sources) Hyperlipidemia, unspecified; Translations: [Pure hyperglyceridemia] Onset: 06-28-2022 Chronic Essential hypertension (20 sources) Essential (primary) hypertension; Translations: [Essential hypertension] Onset: 01-17-2023 Chronic Menopausal disorders (1 source) Drug therapy finding; Translations: [Hormone replacement therapy] 08-19-2024 Episodic Other connective tissue disease (4 sources) Peroneal tendinitis, right leg; Translations: [PERONEAL TENDINITIS RIGHT LEG] Onset: 10-24-2022 Episodic Other nervous system disorders (1 source) Other specified mononeuropathies; Translations: [OTHER SPECIFIED MONONEUROPATHIES] Onset: 10-31-2022 Chronic Other nervous system disorders (1 source) Polyneuropathy, unspecified; Translations: [POLYNEUROPATHY UNSPECIFIED] Onset: 04-08-2022 Chronic Other nervous system disorders (8 sources) Chronic pain; Translations: [Other chronic pain] Onset: 08-08-2024 08-08-2024 Chronic Other nutritional; endocrine; and metabolic disorders (1 source) Obesity, unspecified; Translations: [OBESITY UNSPECIFIED] Onset: 04-08-2022 Chronic Other nutritional; endocrine; and metabolic disorders (17 sources) Severe obesity; Translations: [Class 3 severe obesity without serious comorbidity in adult] Onset: 08-20-2023 08-20-2023 Chronic Other nutritional; endocrine; and metabolic disorders (7 sources) Body mass index 40+ - severely obese; Translations: [Body mass index (BMI) 45.0-49.9, adult] Onset: 08-17-2024 08-17-2024 Chronic Other screening for suspected conditions (not mental disorders or infectious disease) (6 sources) Encounter for screening mammogram for malignant neoplasm of breast; Translations: [Cancer cervix screening status] Onset: 10-28-2022 Episodic Other upper respiratory infections (20 sources) Viral upper respiratory tract infection; Translations: [Acute upper respiratory infection, unspecified] Onset: 11-09-2023 Resolved: 08-17-2024 05-25-2024 Episodic Residual codes; unclassified (1 source) Family history of other malignant neoplasms of lymphoid, hematopoietic and related tissues; Translations: [FAM HX OTH MAL KEIKO LYMPH HEMATPOETC] Onset: 11-02-2022 Episodic Thyroid disorders (20 sources) Hypothyroidism, unspecified; Translations: [Acquired hypothyroidism] Onset: 01-24-2022 Chronic Past or Other Problems Problem Classification Problem Date Documented Da te Episodic/Chronic Diabetes mellitus without complication (5 sources) Prediabetes; Translations: [PREDIABETES] Onset: 07-02-2022 Episodic Genitourinary symptoms and ill-defined conditions (10 sources) Asymptomatic microscopic hematuria; Translations: [Asymptomatic microscopic hematuria] Onset: 08-18-2023 08-18-2023 Episodic Headache; including migraine (10 sources) Headache; Translations: [Headache] Onset: 04-14-2024 Resolved: 04-14-2024 04-14-2024 Episodic Inflammatory diseases of female pelvic organs (10 sources) Chronic vulvovaginitis; Translations: [Subacute and chronic vaginitis] Onset: 02-24-2023 Resolved: 02-24-2023 02-24-2023 Episodic Other circulatory disease (10 sources) Pulmonary congestion ; Translations: [Other specified symptoms and signs involving the circulatory and respiratory systems] Onset: 04-14-2024 Resolved: 04-14-2024 04-14-2024 Episodic Other connective tissue disease (1 source) Pain in right foot; Translations: [PAIN IN RIGHT FOOT] Onset: 10-15-2022 Episodic Other connective tissue disease (4 sources) Pain in left foot; Translations: [PAIN IN LEFT FOOT] Onset: 08-13-2022 Episodic Other connective tissue disease (11 sources) Plantar fasciitis of right foot; Translations: [Plantar fascial fibromatosis] Onset: 05-25-2024 05-25-2024 Episodic Other nervous system disorders (10 sources) Difficulty walking; Translations: [Difficulty in walking, not elsewhere classified] Onset: 02-24-2023 Resolved: 02-24-2023 02-24-2023 Chronic Other non-traumatic joint disorders (4 sources) Pain in right ankle and joints of right foot; Translations: [PAIN IN RIGHT ANKLE] Onset: 10-14-2022 Episodic Other nutritional; endocrine; and metabolic disorders (7 sources) Obesity caused by energy imbalance; Translations: [Morbid (severe) obesity due to excess calories] Onset: 08-17-2024 Resolved: 08-17-2024 08-17-2024 Chronic Other skin disorders (10 sources) Eruption; Translations: [Rash and other nonspecific skin eruption] Onset: 01-20-2024 01-20-2024 Episodic Residual codes; unclassified (14 sources) Bilateral lower limb edema; Translations: [Localized edema] Onset: 09-08-2023 09-08-2023 Episodic Results Test Name Value Interpretation Reference Range Facility PROF CHEM 8 (BAS METB)on Anion gap [Moles/Vol] 6.5 mmol/L Normal [facility] Comment on above: Performed By: #### B MP #### [facility] [address] [place] [address] Dr. Hudson Guerrero Calcium [Mass/Vol] 9.3 mg/dL Normal 8.5-10.1 [facility] Comment on above: Performed By: #### B MP #### [facility] [address] [place] [address] Dr. Hudson Guerrero Chloride [Moles/Vol] 102 mmol/L Normal 98-107 [facility] Comment on above: Performed By: #### B MP #### [facility] [address] [place] [address] Dr. Hudson Guerrero CO2 [Moles/Vol] 32.5 mmol/L Critically high 21.0-32.0 [facility] Comment on above: Performed By: #### B MP #### [facility] [address] [address] [address] Hudson Guerrero Creatinine [Mass/Vol] 0.64 mg/dL Normal 0.55-1.02 [facility] Comment on above: Performed By: #### B MP #### [facility] [address] [address] [address] Hudson Guerrero EGFR-AF ALGERIAN >60 Normal >=60 [facility] Comment on above: Performed By: #### B MP #### [facility] [address] [place] [address] Dr. Hudson Guerrero EGFR-NON AF ALGERIAN >60 Normal >=60 [facility] Comment on above: Performed By: #### B MP #### [facility] [address] [place] [address] Dr. Hudson Guerrero Glucose [Mass/Vol] 100 mg/dL Normal 74-106 [facility] Comment on above: Performed By: #### B MP #### [facility] [address] [place] [address] Dr. Hudson Guerrero Potassium [Moles/Vol] 4.0 mmol/L Normal 3.5-5.1 [facility] Comment on above: Performed By: #### B MP #### [facility] [address] [place] [address] Dr. Hudson Guerrero Sodium [Moles/Vol] 137 mmol/L Normal 136-145 [facility] Comment on above: Performed By: #### B MP #### [facility] [address] [address] [address] Hudson Guerrero Urea nitrogen [Mass/Vol] 18.0 mg/dL Normal 7.0-18.0 [facility] Comment on above: Performed By: #### B MP #### [facility] [address] [place] [address] Dr. Hudson Guerrero Urea nitrogen/Creatinine [Mass ratio] 28.1 mg/mg Normal [facility] Comment on above: Performed By: #### B #### [facility] [address] [address] [address] Hudson Guerrero MG MAMM SCREEN 3D ISABELLA CADon 10-28-2022 MG MAMM SCREEN 3D ISABELLA CAD Patient: WAYNE LOZADA Exam Date: 10/28/2022 : 1965 Gender:F Ordering : GLENNY BIJAL GALA [facility] Admission #: [id number] Family : DR KLAUDIA BARAKAT Order #: [id number] CLICK HERE TO VIEW EXAM RADIOLOGY REPORT [...] myeloma cancer at age 74. LOCATION: [facility] BREAST COMPOSITION: Heterogeneously dense,which may obscure [...] MD on 10/29/2022 at 06:14 Normal [facility] MRI ANKLE RT WO CONon 2022 [...] MEGAN ZAMBRANO Date: 2022-10-26 17:41 Normal [facility] GLYCOHEMOGLOBIN A1Con 2022 ADA RECOMMENDATION SEE BELOW Normal [facility] Comment on above: Result Comment: ADA RECOMMENDED LIMIT 4.0 - 6.0 ADA THERAPEUTIC TARGET < 7.0 ACTION SUGGESTED > 7.0 Performed By: #### A 1C ####[facility] [id number] [address]Dr. Hudson Guerrero Glucose [Mass/Vol] 117 mg/dL Normal [facility] Comment on above: Performed By: #### A 1C ####[facility] [id number] [address]Dr. Hudson Guerrero HbA1c (Bld) [Mass fraction] 5.7 % Normal 4.5-6.2 [facility] Comment on above: Performed By: #### A 1C ####[facility] [id number] [address]Dr. Hudson Guerrero CBC AUTO DIFFon 06-28-2022 BASO # 0.0 103/ul Normal 0.0-0.1 [facility] Comment on above: Performed By: #### C BC #### [facility] [address] [place] [address] Dr. Hudson Guerrero Basophils/100 WBC (Bld) 0.4 % Normal 0.2-2.0 [facility] Comment on above: Performed By: #### C BC #### [facility] [address] [place] [address] Dr. Hudson Guerrero EO # 0.2 103/ul Normal 0.0-0.7 [facility] Comment on above: Performed By: #### C BC #### [facility] [address] [place] [address] Dr. Hudson Guerrero Eosinophils/100 WBC (Bld) 2.6 % Normal 0.9-7.0 [facility] Comment on above: Performed By: #### C BC #### [facility] [address] [place] [address] Dr. Hudson Guerrero Erythrocyte distribution width (RBC) [Ratio] 12.5 % Normal 11.0-15.0 [facility] Comment on above: Performed By: #### C BC #### [facility] [address] [place] [address] Dr. Hudson Guerrero Hematocrit (Bld) [Volume fraction] 36.6 % Normal 36.0-48.0 [facility] Comment on above: Performed By: #### C BC #### [facility] [address] [place] [address] Dr. Hudson Guerrero Hemoglobin (Bld) [Mass/Vol] 12.2 g/dL Normal 12.0-16.0 [facility] Comment on above: Performed By: #### C BC #### [facility] [address] [place] [address] Dr. Hudson Guerrero IG # 0.04 10e3/ul Critically high 0.00-0.03 [facility] Comment on above: Performed By: #### C BC #### [facility] [address] [place] [address] Dr. Hudson Guerrero IG % 0.5 % Normal 0.0-0.5 [facility] Comment on above: Performed By: #### C BC #### [facility] [address] [address] [address] Hudson Guerrero LYMPH # 1.5 103/ul Normal 1.2-3.8 [facility] Comment on above: Performed By: #### C BC #### [facility] [address] [place] [address] Dr. Hudson Guerrero Lymphocytes/100 WBC (Bld) 18.8 % Critically low 20.5-60.0 [facility] Comment on above: Performed By: #### C BC #### [facility] [address] [place] [address] Dr. Hudson Guerrero MANUAL DIFF REQ NO Normal [facility] Comment on above: Performed By: #### C BC #### [facility] [address] [place] [address] Dr. Hudson Guerrero MCH (RBC) [Entitic mass] 31.8 pg Normal 26.7-34.0 [facility] Comment on above: Performed By: #### C BC #### [facility] [address] [place] [address] Dr. Hudson Guerrero MCHC (RBC) [Mass/Vol] 33.3 g/dL Normal 29.9-35.2 [facility] Comment on above: Performed By: #### C BC #### [facility] [address] [place] [address] Dr. Hudson Guerrero MCV (RBC) [Entitic vol] 95.3 fL Normal 81.0-99.0 [facility] Comment on above: Performed By: #### C BC #### [facility] [address] [place] [address] Dr. Hudson Guerrero MONO # 0.5 103/ul Normal 0.3-0.8 [facility] Comment on above: Performed By: #### C BC #### [facility] [address] [place] [address] Dr. Hudson Guerrero Monocytes/100 WBC (Bld) 6.3 % Normal 1.7-12.0 [facility] Comment on above: Performed By: #### C BC #### [facility] [address] [address] [address] Hudson Guerrero NEUT # 5.6 103/ul Normal 1.4-6.5 [facility] Comment on above: Performed By: #### C BC #### [facility] [id number] Hudson Guerrero Neutrophils/100 WBC (Bld) 71.4 % Normal 43.0-75.0 [facility] Comment on above: Performed By: #### C BC #### [facility] [address] [address] [address] Hudson Guerrero Platelet mean volume (Bld) [Entitic vol] 8.9 fL Critically low 9.5-13.5 [facility] Comment on above: Performed By: #### C BC #### [facility] [address] [address] [address] Hudson Guerrero PLT 292 103/ul Normal 150-450 [facility] Comment on above: Performed By: #### C BC #### [facility] [address] [address] [address] Hudson Guerrero RBC 3.84 106/ul Critically low 4.20-5.40 [facility] Comment on above: Performed By: #### C BC #### [facility] [address] [address] [address] Hudson Guerrero WBC 7.8 103/ul Normal 4.0-11.0 [facility] Comment on above: Performed By: #### C BC #### [facility] [address] [address] [address] Hudson Guerrero FREE T4on 06-28-2022 Free T4 [Mass/Vol] 0.91 ng/dL Normal 0.76-1.46 [facility] Comment on above: Performed By: #### F T4 ####[facility] [address] [address]Dr. Hudson Guerrero GLYCOHEMOGLOBIN A1Con 2021 ADA RECOMMENDATION SEE BELOW Normal [facility] Comment on above: Result Comment: ADA RECOMMENDED LIMIT 4.0 - 6.0 ADA THERAPEUTIC TARGET < 7.0 ACTION SUGGESTED > 7.0 Performed By: #### A 1C #### [facility] [address] [address] [address] Hudson Guerrero Glucose [Mass/Vol] 134 mg/dL Normal [facility] Comment on above: Performed By: #### A 1C #### [facility] [address] [address] [address] Hudson Guerrero HbA1c (Bld) [Mass fraction] 6.3 % Critically high 4.5-6.2 [facility] Comment on above: Performed By: #### A 1C #### [facility] [address] [address] [address] Hudson Guerrero LIPID PROFILEon 06-28-2022 CHOL-HDL RATIO NORM SEE BELOW Normal [facility] Comment on above: Result Comment: 3.3 - 4.4 LOW RISK 4.4 - 7.1 AVERAGE RISK 7.1 - 11.0 MODERATE RISK >11.0 HIGH RISK Performed By: #### C MP, TSH, LIPID ####[facility] [address] [address]Dr. Hudson Guerrero Cholesterol [Mass/Vol] 159 mg/dL Normal <=200 [facility] Comment on above: Performed By: #### C MP, TSH, LIPID ####[facility] [address] [address]Dr. Hudson Guerrero Cholesterol in HDL [Mass/Vol] 45 mg/dL Normal 40-60 [facility] Comment on above: Performed By: #### C MP, TSH, LIPID ####[facility] [address] [address]Dr. Hudson Guerrero Cholesterol in LDL [Mass/Vol] 82.6 mg/dL Normal [facility] Comment on above: Performed By: #### C MP, TSH, LIPID ####[facility] [address] [id number]. Hudson Guerrero Cholesterol.total/Cho lesterol in HDL [Mass ratio] 3.5 {ratio} Normal [facility] Comment on above: Performed By: #### C MP, TSH, LIPID ####[facility] [address] [address]Dr. Hudson Guerrero HDL NORMAL > or = 60 mg/dl - LO W CARDIOVASCULAR RISK <40 mg/dl - HIGH CARDIOVASCULAR RISK Normal [facility] Comment on above: Performed By: #### C MP, TSH, LIPID ####[facility] [address] [address]Dr. Hudson Guerrero LDL CALC NORMAL SEE BELOW Normal [facility] Comment on above: Result Comment: <100 mg/dl OPTIMAL 100 - 129 mg/dl NEAR OR ABOVE OPTIMAL 130 - 159 mg/dl BORDERLINE HIGH 160 - 189 mg/dl HIGH >190 mg/dl VERY HIGH Performed By: #### C MP, TSH, LIPID ####[facility] [address] [address]Dr. Hudson Guerrero Triglyceride [Mass/Vol] 157 mg/dL Critically high <=150 [facility] Comment on above: Performed By: #### C MP, TSH, LIPID ####[facility] [address] [address]Dr. Hudson Guerrero VLDL CALC 31.4 mg/dL Normal [facility] Comment on above: Performed By: #### C MP, TSH, LIPID ####[facility] [address] [address]Dr. Hudson Guerrero PROF 14(COMP METB)on 06-28-2 022 Albumin [Mass/Vol] 3.7 g/dL Normal 3.4-5.0 [facility] Comment on above: Performed By: #### C MP, TSH, LIPID ####[facility] [address] [address]Dr. Hudson Guerrero Albumin/Globulin [Mass ratio] 0.9 {ratio} Normal [facility] Comment on above: Performed By: #### C MP, TSH, LIPID ####[facility] [address] [address]Dr. Hudson Guerrero ALP [Catalytic activity/Vol] 88 U/L Normal 46-116 [facility] Comment on above: Performed By: #### C MP, TSH, LIPID ####[facility] [address] [address]Dr. Hudson Guerrero ALT [Catalytic activity/Vol] 45 U/L Normal 14-59 [facility] Comment on above: Performed By: #### C MP, TSH, LIPID ####[facility] [address] [address]Dr. Hudson Guerrero Anion gap [Moles/Vol] 14.1 mmol/L Normal [facility] Comment on above: Performed By: #### C MP, TSH, LIPID ####[facility] [address] [address]Dr. Hudson Guerrero AST [Catalytic activity/Vol] 39 U/L Critically high 15-37 [facility] Comment on above: Performed By: #### C MP, TSH, LIPID ####[facility] [address] [place], [place] [address]Dr. Hudson Guerrero Bilirubin [Mass/Vol] 0.5 mg/dL Normal 0.2-1.0 [facility] Comment on above: Performed By: #### C MP, TSH, LIPID ####[facility] [address] [address]Dr. Hudson Guerrero Calcium [Mass/Vol] 9.3 mg/dL Normal 8.5-10.1 [facility] Comment on above: Performed By: #### C MP, TSH, LIPID ####[facility] [address] [address]Dr. Hudson Guerrero Chloride [Moles/Vol] 106 mmol/L Normal 98-107 [facility] Comment on above: Performed By: #### C MP, TSH, LIPID ####[facility] [address] [address]Dr. Hudson Guerrero CO2 [Moles/Vol] 28.5 mmol/L Normal 21.0-32.0 [facility] Comment on above: Performed By: #### C MP, TSH, LIPID ####[facility] [address] [address]Dr. Hudson Guerrero Creatinine [Mass/Vol] 0.55 mg/dL Normal 0.55-1.02 [facility] Comment on above: Performed By: #### C MP, TSH, LIPID ####[facility] [address] [id number]. Hudson Guerrero EGFR-AF ALGERIAN >60 Normal >=60 [facility] Comment on above: Performed By: #### C MP, TSH, LIPID ####[facility] [address] [phone]. Hudson Guerrero EGFR-NON AF ALGERIAN >60 Normal >=60 [facility] Comment on above: Performed By: #### C MP, TSH, LIPID ####[facility] [address] [address]Dr. Hudson Guerrero Globulin (S) [Mass/Vol] 4.0 g/dL Normal [facility] Comment on above: Performed By: #### C MP, TSH, LIPID ####[facility] [address] [address]Dr. Hudson Guerrero Glucose [Mass/Vol] 115 mg/dL Critically high 74-106 [facility] Comment on above: Performed By: #### C MP, TSH, LIPID ####[facility] [address] [phone]. Hudson Guerrero Potassium [Moles/Vol] 4.6 mmol/L Normal 3.5-5.1 [facility] Comment on above: Performed By: #### C MP, TSH, LIPID ####[facility] [address] [phone]. Hudson Guerrero Protein [Mass/Vol] 7.7 g/dL Normal 6.4-8.2 [facility] Comment on above: Performed By: #### C MP, TSH, LIPID ####[facility] [address] [address]Dr. Hudson Guerrero Sodium [Moles/Vol] 144 mmol/L Normal 136-145 [facility] Comment on above: Performed By: #### C MP, TSH, LIPID ####[facility] [address] [phone]. Hudson Guerrero Urea nitrogen [Mass/Vol] 16.0 mg/dL Normal 7.0-18.0 [facility] Comment on above: Performed By: #### C MP, TSH, LIPID ####[facility] [address] [address]Dr. Hudson Guerrero Urea nitrogen/Creatinine [Mass ratio] 29.1 mg/mg Normal [facility] Comment on above: Performed By: #### C MP, TSH, LIPID ####[facility] [address] [address]Dr. Hudson Guerrero TSHon 06-28-2022 TSH 1.163 uIU/mL Normal 0.358-3.740 [facility] Comment on above: Performed By: #### C MP, TSH, LIPID ####[facility] [address] [address]DrRehan Guerrero UA RANDOM W/MICROSCOPICon BACTERIA SMALL Abnormal NONE SEEN [facility] Comment on above: Performed By: #### U AMIC #### [facility] [address] [place] [address] Dr. Hudson Guerrero Bilirubin Ql (U) Negative Normal NEGATIVE [facility] Comment on above: Performed By: #### U AMIC #### [facility] [address] [place] [address] Dr. Hudson Guerrero CAST NONE SEEN Normal NONE SEEN [facility] Comment on above: Performed By: #### U AMIC #### [facility] [address] [place] [address] Dr. Hudson Guerrero Clarity (U) CLEAR Normal CLEAR [facility] Comment on above: Performed By: #### U AMIC #### [facility] [address] [place] [address] Dr. Hudson Guerrero Color (U) LT. YELLOW Normal YELLOW [facility] Comment on above: Performed By: #### U AMIC #### [facility] [address] [place] [address] Dr. Hudson Guerrero Crystals LM Nom (Urine sed) NONE SEEN Normal NONE SEEN [facility] Comment on above: Performed By: #### U AMIC #### [facility] [address] [address] [address] Hudson Guerrero Epithelial cells LM Ql (Urine sed) FEW Abnormal NONE SEEN /RARE [facility] Comment on above: Performed By: #### U AMIC #### [facility] [address] [place] [address] Dr. Hudson Guerrero Glucose Ql (U) Negative Normal NEGATIVE [facility] Comment on above: Performed By: #### U AMIC #### [facility] [address] [address] [address] Hudson Guerrero Hemoglobin Ql (U) Negative Normal NEGATIVE [facility] Comment on above: Performed By: #### U AMIC #### [facility] [address] [place] [address] Dr. Hudson Guerrero Ketones Ql (U) Negative Normal NEGATIVE [facility] Comment on above: Performed By: #### U AMIC #### [facility] [address] [place] [address] Dr. Hudson Guerrero LEUKOCYTES SMALL Abnormal NEGATIVE [facility] Comment on above: Performed By: #### U AMIC #### [facility] [address] [place] [address] Dr. Hudson Guerrero MUCOUS NONE SEEN Normal NONE SEEN [facility] Comment on above: Performed By: #### U AMIC #### [facility] [address] [place] [address] Dr. Hudson Guerrero Nitrite Ql (U) Negative Normal NEGATIVE [facility] Comment on above: Performed By: #### U AMIC #### [facility] [address] [place] [address] Dr. Hudson Guerrero pH (U) 6.0 [pH] Normal 5-9 [facility] Comment on above: Performed By: #### U AMIC #### [facility] [address] [place] [address] Dr. Hudson Guerrero RBC NONE SEEN Abnormal 0-2 [facility] Comment on above: Performed By: #### U AMIC #### [facility] [address] [place] [address] Dr. Hudson Guerrero SPEC GRAVITY 1.025 Normal 1.005-<=1.025 [facility] Comment on above: Performed By: #### U AMIC #### [facility] [address] [place] [address] Dr. Hudson Guerrero UA PROTEIN Negative Normal NEGATIVE/ TRACE [facility] Comment on above: Performed By: #### U AMIC #### [facility] [address] [place] [address] Dr. Hudson Guerrero Urobilinogen Qn (U) 0.2 {Andi'U}/dL Normal 0.2 - 1. 0 [facility] Comment on above: Performed By: #### U AMIC #### [facility] [address] [place] [address] Dr. Hudson Guerrero WBC 2-5 Abnormal NONE SEEN [facility] Comment on above: Performed By: #### U AMIC #### [facility] [address] [place] [address] Dr. Hudson Guerrero TSHon 01-24-2022 TSH 2.622 uIU/mL Normal 0.358-3.740 [facility] Comment on above: Performed By: #### T SH #### [facility] [address] [place] [address] Dr. Hudson Guerrero TSH RANGE SEE BELOW Normal [facility] Comment on above: Result Comment: <0.3 4 UIU/ml HYPERTHYROID 0.34-5.60 UIU/ml EUTHYROID >5.60 UIU/ml HYPOTHYROID Performed By: #### T SH #### [facility] [address] [place] [address] Dr. Hudson Guerrero Vital Signs Date Time Vital Sign Value Performing Clinician Raoul lity 08-22-2024 10:07050 Body height 170.2 cm [employer] Phone: [facility] 08-22-2024 10:07-050 Body mass index (BMI) [Ratio] 43.85 kg/m2 [employer] Phone: [facility] 08-22-2024 10:07050 Body weight 127.01 kg Klaudia Barakat DO Work Phone: [facility] 08-22-2024 10:07-0500 Diastolic blood pressure 78 mm[Hg] Klaudia Barakat DO Work Phone: [facility] 08-22-2024 10:07-0500 Systolic blood pressure 134 mm[Hg] Klaudia Barakat DO Work Phone: [facility] 08-17-2024 15:46-0500 Body height 170.2 cm Bijal Aichholz [employer] Work Phone: [facility] 08-17-2024 15:46-0500 Body mass index (BMI) [Ratio] 43.89 kg/m2 Bijal Aichholz [employer] Work Phone: [facility] 08-17-2024 15:46-0500 Body temperature 98.1 [degF] Bijal Aichholz [employer] Work Phone: [facility] 08-17-2024 15:46-0500 Body weight 127.1 kg Bijal Aichholz [employer] Work Phone: [facility] 08-17-2024 15:46-0500 Diastolic blood pressure 86 mm[Hg] Bijal Aichholz [employer] Work Phone: [facility] 08-17-2024 15:46-0500 Heart rate 97 /min Bijal Aichholz [employer] Work Phone: [facility] 08-17-2024 15:46-0500 Respiratory rate 18 /min Bijal Aichholz [employer] Work Phone: [facility] 08-17-2024 15:46-0500 SaO2% (BldA) [Mass fraction] 98 % Bijal Aichholz [employer] Work Phone: [facility] 08-17-2024 15:46-0500 Systolic blood pressure 132 mm[Hg] Bijal Aichholz [employer] Work Phone: [facility] 05-25-2024 16:07-0400 Body height 170.2 cm Bijal Aichholz [employer] Work Phone: [facility] 05-25-2024 16:07-0400 Body mass index (BMI) [Ratio] 45.11 kg/m2 Bijal Marinanoy [employer] Work Phone: [facility] 05-25-2024 16:07-0400 Body temperature 97.81 [degF] Bijalandrea Abdiholz [employer] Work Phone: [facility] 05-25-2024 16:07-0400 Body weight 130.64 kg Bijalandrea Abdiholz [employer] Work Phone: [facility] 05-25-2024 16:07-0400 Diastolic blood pressure 80 mm[Hg] Bijal Trinidadholz [employer] Work Phone: [facility] 05-25-2024 16:07-0400 Heart rate 79 /min Bijal Trinidadholz [employer] Work Phone: [facility] 05-25-2024 16:07-0400 Respiratory rate 20 /min Bijal Trinidadholz [employer] Work Phone: [facility] 05-25-2024 16:07-0400 SaO2% (BldA) [Mass fraction] 97 % Bijal Trinidadholz [employer] Work Phone: [facility] 05-25-2024 16:07-0400 Systolic blood pressure 122 mm[Hg] Bijal Trinidadholz [employer] Work Phone: [facility] Healthcare Encounters Encounter Date Encounter Type Care Provider Facility Start: 09-08-2024 End: 09-08-2024 Refill Bijal Salasz [employer] Work Phone: [facility] Comment on above: Class 3 severe obesi ty due to excess calories without serious comorbidity with body mass index (BMI) of 40.0 to 44.9 in adult (CMS/HCC) (Primary Dx) Start: 08-22-2024 End: 08-22-2024 Patient encounter status Klaudia Barakat DO Work Phone: [facility] Start: 08-22-2024 End: 08-22-2024 Periodic preventive med est patient 40-64yrs Klaudia Buck Roshni DO Work Phone: [facility] Comment on above: Encounter for gyneco logical examination without abnormal finding; Screening for malignant neoplasm of cervix; Breast cancer screening by mammogram; Hormone replacement therapy Start: 08-22-2024 End: 08-22-2024 ambulatory KLAUDIA ALTMANER Not Available Start: 08-17-2024 End: 08-17-2024 ambulatory BIJAL ANTUNEZ Not Available Start: 08-17-2024 End: 08-17-2024 Periodic preventive med est patient 40-64yrs Bijal Antunez [employer] Work Phone: [facility] Comment on above: Encounter for adult wellness visit (Primary Dx); Morbid (severe) obesity due to excess calories (CMS/HCC); Body mass index (BMI) 45.0-49.9, adult (CMS/HCC); Primary hypertension (CMS/HCC); Bilateral lower extremity edema; Class 3 severe obesity due to excess calories without serious comorbidity with body mass index (BMI) of 45.0 to 49.9 in adult (CMS/HCC); Essential (primary) hypertension (CMS/HCC); Pure hyperglyceridemia (CMS/HCC); Acute non-recurrent maxillary sinusitis Start: 08-17-2024 End: 08-17-2024 Bamboo flowsheet Bijal Antunez [employer] Work Phone: [facility] Start: 08-17-2024 End: 08-17-2024 Bamboo flowsheet Bijal Antunez [employer] Work Phone: [facility] Start: 08-17-2024 End: 08-17-2024 Patient encounter status Bijal Antunez [employer] Work Phone: [facility] Start: 08-10-2024 End: 08-10-2024 Refill Bijal Antunez [employer] Work Phone: [facility] Comment on above: Class 3 severe obesi ty due to excess calories without serious comorbidity with body mass index (BMI) of 45.0 to 49.9 in adult (CMS/HCC) (Primary Dx) Start: 08-07-2024 End: 08-08-2024 Refill Charan Quinn MD Work Phone: [facility] Comment on above: Other chronic pain ( Primary Dx) Start: 05-25-2024 End: 05-25-2024 Office outpatient visit 25 minutes Bijal Aichholz [employer] Work Phone: [facility] Comment on above: Plantar fasciitis, r ight (Primary Dx); Primary hypertension ([facility]); Class 3 severe obesity due to excess calories without serious comorbidity with body mass index (BMI) of 45.0 to 49.9 in adult ([facility]); Bilateral lower extremity edema Start: 05-25-2024 End: 05-25-2024 ambulatory BIJAL AICHHOLZ Not Available Start: 05-25-2024 End: 05-25-2024 Bamboo flowsheet Bijal Aichholz [employer] Work Phone: [facility] Start: 05-25-2024 End: 05-25-2024 Bamboo flowsheet Bijal Aichholz [employer] Work Phone: [facility] Start: 03-22-2024 End: 03-22-2024 ambulatory BIJAL AICHHOLZ Not Available Start: 03-15-2024 End: 03-15-2024 ambulatory DESTINY H TIMMIS Not Available Start: 02-02-2024 End: 02-02-2024 ambulatory DESTINY H TIMMIS Not Available Start: 01-20-2024 End: 01-20-2024 ambulatory BIJAL AICHHOLZ Not Available Start: 01-17-2023 End: 01-18-2023 ambulatory [employer] BIJAL AICHHOLZ Facility:[facility] Start: 10-28-2022 End: 10-29-2022 ambulatory [employer] BIJAL AICHHOLZ Facility:[facility] Start: 10-24-2022 End: 10-25-2022 ambulatory [employer] BIJAL AICHHOLZ Facility:[facility] Start: 10-14-2022 End: 10-15-2022 ambulatory [employer] BIJAL AICHHOLZ Facility:[facility] Start: 10-09-2022 End: 10-10-2022 ambulatory [employer] BIJAL AICHHOLZ Facility:[facility] Start: 08-13-2022 End: 08-14-2022 ambulatory GLENNY ANTUNEZ Facility:[facility] Start: 07-04-2022 ambulatory FAROOQ KO . Facili ty:[facility] Start: 06-28-2022 End: 06-29-2022 ambulatory GLENNY ANTUNEZ Facility:[facility] Start: 06-03-2022 End: 06-04-2022 ambulatory GLENNY ANTUNEZ Facility:[facility] Start: 04-04-2022 End: 04-05-2022 ambulatory FAROOQ KO . Facility:[facility] Start: 03-25-2022 End: 03-26-2022 ambulatory GLENNY ANTUNEZ Facility:[facility] Start: 01-28-2022 End: 01-29-2022 ambulatory GLENNY ANTUNEZ Facility:[facility] Start: 01-24-2022 End: 01-25-2022 ambulatory GLENNY ANTUNEZ Facility:[facility] Procedures Date Procedure Procedure Detail Performing Clinician Start: 12-02-2023 Mammography Bijal eddy [employer] Work Phone: Start: 01-12-2019 Colonoscopy Bijal Trinidadmalgorzata surjit [employer] Work Phone: Plan of Treatment Date Care Activity Detail Author Start: 01-12-2029 Screening for malign ant neoplasm of colon [facility] Start: 12-01-2024 Screening for malign ant neoplasm of breast Mammogram [facility] Start: 11-16-2024 End: 11-16-2024 Patient encounter procedure 11/16/2024 3:40 PM EST [facility] [address] [place] [address] Bijal Antunez NP [address] [place] [address] AILYN FORD Start: 08-22-2024 End: 10-23-2025 DBT Breast - bilateral screening Bilateral screening mammogram with tomosynthesis Imaging Routine Breast cancer screening by mammogram Expected: 08/22/2024, Expires: 10/23/2025 [facility] Comment on above: Expected: 08/22/2024 , Expires: 10/23/2025 Start: 08-22-2024 End: 08-22-2024 Patient encounter procedure 08/22/2024 10:00 AM EST Office Visit [facility] [address] [place] [address] Klaudia Barakat DO [address] [place] [address] [facility] Start: 08-17-2024 End: 08-17-2024 Patient encounter procedure 08/17/2024 3:40 PM EST Office Visit [facility] [address] [place] [id number] Bijal Antunez NP [address] [place] [address] [facility] Start: 08-17-2024 End: 08-17-2025 CBC W Auto Differential panel - Blood CBC and differential Lab Routine Encounter For Adult Wellness Visit Expected: 08/17/2024 (Approximate), Expires: 08/17/2025 [facility] Work Phone: Comment on above: Expected: 08/17/2024 (Approximate), Expires: 08/17/2025 Start: 08-17-2024 End: 08-17-2025 Comprehensive metabolic 2000 panel - Serum or Plasma Comprehensive metabolic panel Lab Routine Encounter for adult wellness visit Expected: 08/17/2024 (Approximate), Expires: 08/17/2025 [facility] Comment on above: Expected: 08/17/2024 (Approximate), Expires: 08/17/2025 Start: 08-17-2024 End: 08-17-2025 Lipid 1996 panel - Serum or Plasma Lipid panel Lab Routine Encounter for adult wellness visit Expected: 08/17/2024 (Approximate), Expires: 08/17/2025 [facility] Comment on above: Expected: 08/17/2024 (Approximate), Expires: 08/17/2025 Start: 08-17-2024 End: 08-17-2025 Microalbumin/Creatinine panel in random Urine Microalbumin / creatinine, urine ratio Lab Routine Encounter for adult wellness visit Expected: 08/17/2024 (Approximate), Expires: 08/17/2025 [facility] Comment on above: Expected: 08/17/2024 (Approximate), Expires: 08/17/2025 Start: 08-17-2024 End: 08-17-2025 Thyrotropin [Units/volume] in Serum or Plasma TSH Lab Routine Encounter for adult wellness visit Expected: 08/17/2024 (Approximate), Expires: 08/17/2025 [facility] Comment on above: Expected: 08/17/2024 (Approximate), Expires: 08/17/2025 Start: 08-17-2024 End: 08-17-2025 Thyroxine (T4) free [Mass/volume] in Serum or Plasma T4, free Lab Routine Encounter for adult wellness visit Expected: 08/17/2024 (Approximate), Expires: 08/17/2025 [facility] Comment on above: Expected: 08/17/2024 (Approximate), Expires: 08/17/2025 Start: 08-17-2024 End: 08-17-2025 Urinalysis complete panel - Urine Urinalysis with reflex microscopic (clean catch) Lab Routine Encounter for adult wellness visit Expected: 08/17/2024 (Approximate), Expires: 08/17/2025 [facility] Comment on above: Expected: 08/17/2024 (Approximate), Expires: 08/17/2025 Start: 05-25-2024 End: 05-25-2024 Patient encounter procedure 05/25/2024 3:40 PM EDT Office Visit [facility] [address] [place] [address] Bijal Antunez NP [address] [place] [address] Arrived [facility] Comment on above: Arrived Start: 1965 Screening for malign ant neoplasm of colon [facility] IGP, APT HPV,RFX 16/18,45 IGP, APT HPV,RFX 16/18,45 Lab Routine Screening for malignant neoplasm of cervix Ordered: 08/22/2024 [facility] Work Phone: Comment on above: Ordered: 08/22/2024 Payers Date Payer Category Payer [place] [employer] [id number] 1.315 2018 Unknown BCBS BCBS xxxxxx [id number] 2018-Present [phone] [address] [place] [address] [id number] 1965 Unknown [id number] 2.16.840.1.031856.3.5 79.2.593 1965 Unknown [id number] 2.16.840.1.464166.3.5 79.2.593 1965 Unknown [id number] 2.16.840.1.944961.3.5 79.2.593 1965 Unknown [id number] 2.16.840.1.136098.3.5 79.2.593 1965 Unknown [id number] 2.16.840.1.343396.3.5 79.2.593 1965 Unknown [id number] 2.16.840.1.339522.3.5 79.2.593 1965 Unknown [id number] 2.16.840.1.875919.3.5 79.2.593 1965 Unknown [id number] 2.16.840.1.456538.3.5 79.2.593 1965 Unknown [id number] 2.16.840.1.907138.3.5 79.2.593 1965 Unknown [id number] 2.16.840.1.018071.3.5 79.2.593 1965 Unknown [id number] 2.16.840.1.460774.3.5 79.2.593 1965 Unknown [id number] 2.16.840.1.845440.3.5 79.2.593 1965 Unknown [id number] 2.16.840.1.896255.3.5 79.2.593 1965 Unknown [id number] 2.16.840.1.251540.3.5 79.2.1259 1965 Unknown [id number] 2.16.840.1.379110.3.5 79.2.1259 1965 Unknown [id number] 2.16.840.1.825273.3.5 79.2.1259 1965 Unknown [id number] 2.16.840.1.340641.3.5 79.2.1259 1965 Unknown [id number] 2.16.840.1.893046.3.5 79.2.1259 1965 Unknown [id number] 2.16.840.1.726250.3.5 79.2.1259 1965 Unknown [id number] 2.16.840.1.962934.3.5 79.2.1259 1959 Unknown [id number] Social History Date Type Detail Facility Start: 08-17-2023 End: 08-19-2024 Tobacco smoking status NDIS Ex-smoker [facility] are Start: 09-14-2000 End: 09-14-2015 History of tobacco use Current smoker [facility] Start: 09-14-2000 End: 09-14-2015 History of tobacco use Cigarette Smoker [facility] Start: 08-17-2023 End: 08-18-2023 Cigarettes smoked current (pack per day) - Reported 1 [facility] Start: 08-17-2023 End: 08-19-2024 Tobacco use and exposure Smokeless tobacco non-user [facility] Start: 05-25-2024 End: 08-22-2024 Alcoholic beverage intake Ex-drinker (finding) [facility] Start: 08-18-2023 End: 08-22-2024 Humiliation, Afraid, Rape, and Kick questionnaire [HARK] [facility] Within the last year , have you been afraid of your partner or ex-partner? No [facility] Are you now , , , , never or living with a partner? [facility] How often to you hav e a drink containing alcohol? Never [facility] How many standard dr inks containing alcohol do you have on a typical day? Patient does not drink [facility] Do you feel stress - tense, restless, nervous, or anxious, or unable to sleep at night because your mind is troubled all the time - these days [OSQ] Not at all [facility] (I/We) worried wheth er (my/our) food would run out before (I/we) got money to buy more. Never true [facility] Start: 08-15-2023 Alcohol Comment Caffeine intak e: 1 cup of coffee daily , Soda 1 per day [facility] Start: 1965 Sex assigned at Not on file [facility] Clinical Notes 01-28-2022 to 08-22-2024 Lauren Christie MA - 08/22/2024 10:00 AM Luis Angel Antunez NP - 08/17/2024 4:10 PM ELISEO CORTES - 08/17/2024 3:40 PM Luis Angel Antunez NP - 08/17/2024 3:40 PM ESTPatient Instructions Note Date & Type Note Facility 08-22-2024 History of Present illness Narrative Images from the original note were not included. Klaudia Barakat, DO Obstetrics and Gynecology [facility] [place] 1965 08/22/24 [id number] Yearly Wellness Exam Chief Complaint Patient presents with Gynecologic Exam LMP: STAH BSO 2017 HRT: Estradiol 2 MG - satisfied. Last pap 08-17-23 neg. Mammograms ordered by PCP at [facility]. Denies breast, urinary, or bowel concerns. Menopause Questions how long to be on Estradiol. Visit Vitals BP 134/78 Ht 5' 7 Wt 280 lb BMI 43.85 kg/m OB Status Hysterectomy Smoking Status Former BSA 2.45 m OB History Para Term AB Living 3 3 3 SAB IAB Ectopic Multiple Live Births 3 # Outcome Date GA Lbr Ricki/2nd Weight Sex Type Anes PTL Lv 3 Para CS-LTranv SIMRAN 2 Para CS-LTranv SIMRAN 1 Para CS-LTranv SIMRAN Obstetric Comments Heaviest weighed 8 lbs 6 oz Current Outpatient Medications Medication Sig Dispense Refill albuterol HFA 90 mcg/act inhaler Inhale 2 puffs every 4 (four) hours if needed for wheezing 18 g 2 amoxicillin-clavulanate (Augmentin) 875-125 MG tablet Take 1 tablet (875 mg) by mouth in the morning and 1 tablet (875 mg) before bedtime. Do all this for 10 days. Take with food. 20 tablet 0 atorvastatin (Lipitor) 40 MG tablet Take 1 tablet (40 mg) by mouth at bedtime 90 tablet 1 cholecalciferol (Vitamin D-3) 25 MCG tablet Take 1 tablet by mouth Daily cyclobenzaprine (Flexeril) 5 MG tablet Take 1 tablet by mouth as needed at bedtime for muscle spasms Elastic Bandages & Supports (JOBST KNEE HIGH COMPRESSION SM) misc 1 Units in the morning. Jobst UltraSheer 20-30 mmHg Large - knee high compression hose. On in AM off in PM. estradiol (Estrace) 2 MG tablet Take 1 tablet (2 mg) by mouth Daily 90 tablet 3 ferrous sulfate 325 (65 Fe) MG tablet Take 325 mg by mouth in the morning. Take with meals. fexofenadine (Conchis) 180 MG tablet Take 180 mg by mouth in the morning. hydroCHLOROthiazide (HYDRODiuril) 25 MG tablet Take 1 tablet (25 mg) by mouth 2 (two) times a day as needed (swelling) 180 tablet 1 ibuprofen 800 MG tablet Take 1 tablet (800 mg) by mouth 3 (three) times a day as needed for moderate pain 90 tablet 1 levothyroxine (Synthroid) 150 MCG tablet Take 1 tablet (150 mcg) by mouth in the morning. Take before meals. 90 tablet 3 lisinopril 20 MG tablet Take 1 tablet (20 mg) by mouth Daily 90 tablet 1 nystatin-triamcinolone (Mycolog II) cream Apply 1 application topically every 12 (twelve) hours. Semaglutide-Weight Management (Wegovy) 2.4 MG/0.75ML solution auto-injector Inject 2.4 mg under the skin every 7 (seven) days for 28 days g 3 mL 3 No current facility-administered medications for this visit. No Known Allergies Past Surgical History: Procedure Laterality Date CARPAL TUNNEL RELEASE 1992 SECTION, LOW TRANSVERSE 1984 1985 1988 COLONOSCOPY 01/2019 Normal. repeat in 10 years FOOT SURGERY Left 07/2021 plates and screws. 2nd toe screws HYSTERECTOMY 2016 STAH BSO TUBAL LIGATION 1988 Past Medical History: Diagnosis Date Acquired hypothyroidism (CMS/HCC) Allergic rhinitis Anemia iron def,. 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 Is considering a second opinion. Left shoulder pain, unspecified chronicity Prior fracture left humerus. Recent exacerbation of pain, saw Dr Woods in past. Menopausal vaginal dryness Discussed options of treatment, including nonhormonal vs hormonal, to include R/B/A as well as SE. Reviewed results of WHI study. All of pt's ? were answered and she expressed understanding. HRT prescribed, per previous prescription, after R/B/A as well as SE were reviewed.Advised ERT not recommended beyond age 65, secondary to increased risk of breast cancer, & stroke/DVT. given for mammogram Morbid obesity (CMS/HCC) Muscle spasm LORENZA on CPAP sleep study 04/21/2016: AHI 55, severe sleep apnea, settings CPAP pressure 12 Overweight (BMI 25.0-29.9) Paronychia, toe, left PCOS (polycystic ovarian syndrome) Prediabetes Predislocation syndrome of metatarsophalangeal joint, left Primary hypertension (CMS/HCC) 09/08/2023 Rash of hand Restless leg syndrome Scar contracture Thyroid nodule (CMS/HCC) with hypothyroidism Vision changes ROS Const: Denies appetite change, fever, chills. Allergy: Denies medication reaction. Ocular: Denies visual acuity change. ENT: Denies hearing change. Endoc: Denies weight loss. Resp: Denies dyspnoea, wheezing. Cardiac: Denies angina, palpitations. GI: Denies nausea, vomiting. Haem: Denies bleeding. : Denies incontinence. MSK: Denies arthralgias, joint oedema. Derm: Denies rash, hair loss. Neuro: Denies ataxia, tremor. Also see HPI for elements of ROS documented therein and for details of positive findings, which shall supersede the foregoing. EXAM GENERAL EXAMINATION alert oriented well developed, well nourished. HEAD: normocephalic atraumatic. EYES: sclera anicteric. EARS: no obvious hearing deficit. NECK/THYROID: neck supple no cervical lymphadenopathy no thyromegaly. LYMPH NODES: no axillary, supraclavicular or inguinal adenopathy. SKIN: warm and dry. HEART: regular rate and rhythm. LUNGS: clear to auscultation bilaterally. CHEST:axillary nodes grossly normal. BREASTS:no masses palpable bilaterally, normal nipples bilaterally - everted -finely cystic - dense - well supported- axilla negative. ABDOMEN: soft, nontender, nondistended, no masses palpable. BACK: no costovertebral angle tenderness, no obvious scoliosis/kyphosis. 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 EXTREMITIES no edema. NEUROLOGIC: alert and oriented. PSYCH: cooperative with exam. ICD-10-CM 1. Encounter for gynecological examination without abnormal finding Z01.419 Pelvic and breast exam completed. Findings of today's exam discussed with the patient. Continue MSBE. Ca/Vit D recommendations reviewed with the patient. The patient is to contact the office with any changes to her gynecological condition or any changes with breast or bleeding. The patient is to return in 1 year or as needed 2. Screening for malignant neoplasm of cervix Z12.4 IGP, APT HPV,RFX 16/18,45 Thinprep collected. Will notify patient if results are abnormal. 3. Breast cancer screening by mammogram Z12.31 Bilateral screening mammogram with tomosynthesis Screening mammogram ordered. Patient to call and schedule. 4. Hormone replacement therapy Z79.890 estradiol (Estrace) 2 MG tablet Discussed HRT with patient. She still is having hot flashes, wakes at night in sweats. Since she is symptomatic recommended to continue current regimen. Entered by Lauren Christie MA acting as scribe for Dr. Klaudia Barakat. Signature Lauren Christie MA Date 08/22/24 . Time 10:22 AM . The documentation recorded by the scribe accurately reflects the service(s) I personally performed and the decisions I made. Signature Lizzette Barakat D.O. Date 08/22/24 Time 5:00PM. documented in this encounter [facility] 08-17-2024 History of Present illness Narrative Associated Problem(s): Acute non-recurrent maxillary sinusitis Fluids, rest, atb Fu if not better Pt would like to talk about her headaches and sinus issue she has had for a week she has tested several times for covid and all have been negative. Right ear plugged up, drainage, sinus pressure, stuffy nose, and headaches. Images from the original note were not included. Wayne Lozada is a 59 y.o. female presents with chief complaint of Hypertension HPI: Wellness: Diet: is eating less with wegovy, balanced Activity: walking outside 2-3 miles daily, walking at work, does have treadmill at home hasn't used it Mental Health Concerns: none Any hearing problems: none Any Vision problems: vision little blurry with prolonged screen time Any Hospitalizations in the last year: none Obesity: has been on wegovy for 5 months, has lost about 11 pounds, nausea day after taking dose Hypertension This is a chronic problem. The current episode started more than 1 year ago. The problem is unchanged. The problem is controlled. Associated symptoms include headaches and peripheral edema. Pertinent negatives include no anxiety, chest pain, palpitations or shortness of breath. There are no associated agents to hypertension. Risk factors for coronary artery disease include obesity. Past treatments include ELISABETH inhibitors and diuretics. The current treatment provides significant improvement. There are no compliance problems. There is no history of kidney disease, CAD/HI or PVD. Sinusitis The current episode started 1 to 4 weeks ago. The problem is unchanged. Maximum temperature: initially. Associated symptoms include congestion, ear pain (right ear), headaches and sinus pressure. Pertinent negatives include no chills, coughing, shortness of breath, sore throat or swollen glands. Past treatments include oral decongestants. The treatment provided mild relief. SUBJECTIVE: MEDICATIONS: Current Outpatient Medications Medication Instructions albuterol HFA 90 mcg/act inhaler 2 puffs, Inhalation, Every 4 hours PRN amoxicillin-clavulanate (Augmentin) 875-125 MG tablet 875 mg, Oral, 2 times daily, Take with food atorvastatin (LIPITOR) 40 mg, Oral, Nightly cholecalciferol (Vitamin D-3) 25 MCG tablet 1 tablet, Oral, Daily cyclobenzaprine (Flexeril) 5 MG tablet 1 tablet, Oral, Nightly PRN Elastic Bandages & Supports (JOBST KNEE HIGH COMPRESSION SM) misc 1 Units, Does not apply, Daily, Jobst UltraSheer 20-30 mmHg Large - knee high compression hose. On in AM off in PM estradiol (ESTRACE) 2 mg, Oral, Every 24 hours ferrous sulfate 325 mg, Oral, Daily with breakfast fexofenadine (CONCHIS) 180 mg, Daily hydroCHLOROthiazide (HYDRODIURIL) 25 mg, Oral, 2 times daily PRN ibuprofen 800 mg, Oral, 3 times daily PRN levothyroxine (SYNTHROID) 150 mcg, Oral, Daily before breakfast lisinopril 20 mg, Oral, Daily nystatin-triamcinolone (Mycolog II) cream 1 application , Every 12 hours Wegovy 2.4 mg, Subcutaneous, Every 7 days, g ALLERGIES: No Known Allergies REVIEW OF SYMPTOMS: Review of Systems Constitutional: Negative for appetite change, chills and fever. HENT: Positive for congestion, ear pain (right ear) and sinus pressure. Negative for sore throat. Eyes: Negative for pain, discharge, redness and visual disturbance. Respiratory: Negative for cough, shortness of breath and wheezing. Cardiovascular: Negative for chest pain, palpitations and leg swelling. Gastrointestinal: Negative for abdominal pain, blood in stool, constipation, diarrhea, nausea and vomiting. Genitourinary: Negative for difficulty urinating, dysuria and frequency. Musculoskeletal: Positive for arthralgias. Negative for back pain, joint swelling and myalgias. Skin: Negative for rash and wound. Neurological: Positive for headaches. Negative for dizziness, tremors, seizures and syncope. Psychiatric/Behavioral: Negative for behavioral problems, self-injury and suicidal ideas. The patient is not nervous/anxious. Hematological: Does not bruise/bleed easily. Endocrine: Negative for polydipsia, polyphagia and polyuria. Allergic/Immunologic: Negative for environmental allergies and food allergies. PAST MEDICAL HISTORY Past Medical History: Diagnosis Date Acquired hypothyroidism ([facility]) Allergic rhinitis Anemia iron def,. Asymptomatic microscopic hematuria 08/18/2023 Atopic dermatitis, unspecified type Bilateral lower extremity edema 09/08/2023 Chronic atrophic candidiasis Chronic vulvovaginitis 02/24/2023 Class 3 severe obesity without serious comorbidity in adult (CMS/HCC) 08/20/2023 COVID-19 07/2020 Dyslipidemia (CMS/HCC) Hammertoe of left foot Hypertension ([facility]) Hypertriglyceridemia ([facility]) Hypertrophic scar Iron deficiency anemia secondary to blood loss (chronic) Has been seeing Clemente, not happy with continuous vaginal bleeding and no resolution. Is considering a second opinion. Left shoulder pain, unspecified chronicity Prior fracture left humerus. Recent exacerbation of pain, saw Dr Woods in past. Menopausal vaginal dryness Discussed options of treatment, including nonhormonal vs hormonal, to include R/B/A as well as SE. Reviewed results of WHI study. All of pt's ? were answered and she expressed understanding. HRT prescribed, per previous prescription, after R/B/A as well as SE were reviewed.Advised ERT not recommended beyond age 65, secondary to increased risk of breast cancer, & stroke/DVT. given for mammogram Morbid obesity (CMS/HCC) Muscle spasm LORENZA on CPAP sleep study 04/21/2016: AHI 55, severe sleep apnea, settings CPAP pressure 12 Overweight (BMI 25.0-29.9) Paronychia, toe, left PCOS (polycystic ovarian syndrome) Prediabetes Predislocation syndrome of metatarsophalangeal joint, left Primary hypertension (CMS/HCC) 09/08/2023 Rash of hand Restless leg syndrome Scar contracture Thyroid nodule (CMS/HCC) with hypothyroidism Vision changes Past Surgical History: Procedure Laterality Date CARPAL TUNNEL RELEASE 1992 SECTION, LOW TRANSVERSE 1984 1985 1988 COLONOSCOPY 01/2019 Normal. repeat in 10 years FOOT SURGERY Left 07/2021 plates and screws. 2nd toe screws HYSTERECTOMY 2016 STA BSO family history includes Cancer in her brother, mother, and paternal grandfather; Diabetes in her brother, brother, mother, and sister; Heart disease in her father; Heart failure in her father; Hyperlipidemia in her mother; Hypertension in her brother, brother, father, mother, and sister; Multiple myeloma in her maternal grandmother and mother; Stomach cancer in her maternal grandfather; Thyroid disease in her father and mother; Uterine cancer in her sister. OBJECTIVE: Visit Vitals BP 132/86 (BP Location: Left arm, Patient Position: Sitting, BP Cuff Size: Adult long) Pulse 97 Temp 98.1 F (Temporal) Resp 18 Ht 5' 7 Wt 280 lb 3.2 oz SpO2 98% BMI 43.89 kg/m OB Status Hysterectomy Smoking Status Former BSA 2.45 m Physical Exam Vitals and nursing note reviewed. Constitutional: General: She is not in acute distress. Appearance: Normal appearance. HENT: Head: Normocephalic and atraumatic. Right Ear: Tympanic membrane, ear canal and external ear normal. Left Ear: Tympanic membrane, ear canal and external ear normal. Ears: Comments: Dull TM Nose: Congestion (yellow and inflammed) present. Comments: Frontal and maxillary sinus pressure Mouth/Throat: Mouth: Mucous membranes are moist. Pharynx: No oropharyngeal exudate or posterior oropharyngeal erythema. Eyes: Extraocular Movements: Extraocular movements intact. Conjunctiva/sclera: Conjunctivae normal. Neck: Vascular: No carotid bruit. Cardiovascular: Rate and Rhythm: Normal rate and regular rhythm. Pulses: Normal pulses. Heart sounds: Normal heart sounds. Pulmonary: Effort: Pulmonary effort is normal. Breath sounds: Normal breath sounds. No wheezing or rales. Abdominal: General: Bowel sounds are normal. There is no distension. Palpations: Abdomen is soft. There is no mass. Tenderness: There is no abdominal tenderness. Musculoskeletal: General: Normal range of motion. Cervical back: Normal range of motion and neck supple. Right lower leg: Edema present. Left lower leg: Edema present. Comments: 1+ edema pre tibial/pedal, has compression stockings on Lymphadenopathy: Cervical: No cervical adenopathy. Skin: General: Skin is warm and dry. Capillary Refill: Capillary refill takes 2 to 3 seconds. Findings: No rash. Neurological: General: No focal deficit present. Mental Status: She is alert and oriented to person, place, and time. Psychiatric: Mood and Affect: Mood normal. Behavior: Behavior normal. Thought Content: Thought content normal. Judgment: Judgment normal. ASSESSMENT AND PLAN: Follow up in about 3 months (around 11/15/2024) for Recheck. Problem List Items Addressed This Visit Class 3 severe obesity without serious comorbidity in adult (CMS/HCC) Discussed with patient their BMI (actual, verses recommended). We have also discussed lifestyle modifications: attempts to perform physical activity as chronic conditions allow, also to monitor dietary intake: increasing protein/fruits/veggies and lowering carb intake (unless contraindicated). Limit sodas, juices, and sugary drinks. Is currently taking wegovy, has been on medication now for approx: Total weight loss: 11 pounds, in 5 months, is now on max dose wegovy Relevant Medications Semaglutide-Weight Management (Wegovy) 2.4 MG/0.75ML solution auto-injector Primary hypertension (CMS/HCC) Please check blood pressure daily and record DASH diet Limit caffeine Take medication as directed Contact office if chest pain, pressure, dizziness, shortness of breath, swelling legs Recommend slow position changes Current meds: hydrochlorothiazide and lisinopril Bilateral lower extremity edema Stable, adjusts the 2nd dose of hydrochlorothiazide when swelling is worse Compression stockings as well Relevant Medications hydroCHLOROthiazide (HYDRODiuril) 25 MG tablet RESOLVED: Morbid (severe) obesity due to excess calories ([facility]/HCC) Discussed with patient their BMI (actual, verses recommended). We have also discussed lifestyle modifications: attempts to perform physical activity as chronic conditions allow, also to monitor dietary intake: increasing protein/fruits/veggies and lowering carb intake (unless contraindicated). Limit sodas, juices, and sugary drinks. Currently taking Wegovy has been on this : Total weight loss: Body mass index (BMI) 45.0-49.9, adult ([facility] [place]) Encounter for adult wellness visit - Primary Reviewed Ht/Wt/BMI Recommend eye exam yearly Recommend dental exams twice a year Balance work/leisure activities Exercises is recommended most days of the week (appropriate as chronic conditions allow) Follow up yearly and prn Relevant Orders CBC and differential Comprehensive metabolic panel Lipid panel Urinalysis with reflex microscopic (clean catch) Microalbumin / creatinine, urine ratio TSH T4, free Acute non-recurrent maxillary sinusitis Fluids, rest, atb Fu if not better Relevant Medications amoxicillin-clavulanate (Augmentin) 875-125 MG tablet Other Visit Diagnoses Essential (primary) hypertension ([facility]/HCC) Relevant Medications lisinopril 20 MG tablet hydroCHLOROthiazide (HYDRODiuril) 25 MG tablet Pure hyperglyceridemia ([facility]/HCC) Relevant Medications atorvastatin (Lipitor) 40 MG tablet Associated Problem(s): Encounter for adult wellness visit Reviewed Ht/Wt/BMI Recommend eye exam yearly Recommend dental exams twice a year Balance work/leisure activities Exercises is recommended most days of the week (appropriate as chronic conditions allow) Follow up yearly and prn Associated Problem(s): Class 3 severe obesity without serious comorbidity in adult ([facility] [place]) Discussed with patient their BMI (actual, verses recommended). We have also discussed lifestyle modifications: attempts to perform physical activity as chronic conditions allow, also to monitor dietary intake: increasing protein/fruits/veggies and lowering carb intake (unless contraindicated). Limit sodas, juices, and sugary drinks. Is currently taking wegovy, has been on medication now for approx: Total weight loss: 11 pounds, in 5 months, is now on max dose wegovy Associated Problem(s): Morbid (severe) obesity due to excess calories (CMS/HCC) (Resolved 08/17/2024) Discussed with patient their BMI (actual, verses recommended). We have also discussed lifestyle modifications: attempts to perform physical activity as chronic conditions allow, also to monitor dietary intake: increasing protein/fruits/veggies and lowering carb intake (unless contraindicated). Limit sodas, juices, and sugary drinks. Currently taking Wegovy has been on this : Total weight loss: Associated Problem(s): Bilateral lower extremity edema Stable, adjusts the 2nd dose of hydrochlorothiazide when swelling is worse Compression stockings as well Associated Problem(s): Primary hypertension (CMS/HCC) Please check blood pressure daily and record DASH diet Limit caffeine Take medication as directed Contact office if chest pain, pressure, dizziness, shortness of breath, swelling legs Recommend slow position changes Current meds: hydrochlorothiazide and lisinopril documented in this encounter [facility] 08-17-2024 Instructions Bijal Antunez NP - 08/17/2024 3:40 PM EST If not better after atb for sinuses contact office, may use nasal saline irrigation documented in this encounter [facility] 05-25-2024 History of Present illness Narrative Associated Problem(s): Plantar fasciitis, right Is established with Lacie, I have discussed what I believe the diagnosis is, she can use ibuprofen as directed She will call podiatry to schedule and also hand out given on PF exerxcises Associated Problem(s): Class 3 severe obesity without serious comorbidity in adult (CMS/HCC) Cont wegovy, increase to 1mg for 4 weeks then 2.4mg Fu in 8 weeks Associated Problem(s): Bilateral lower extremity edema Stable, adjusts the 2nd dose of hydrochlorothiazide when swelling is worse Associated Problem(s): Primary hypertension (CMS/HCC) Stable today no changes Pain in the right ankle-difficulty walking. Legs are both swollen Images from the original note were not included. Wayne Lozada is a 59 y.o. female presents with chief complaint of No chief complaint on file. HPI: Continues with use of wegovy, is currently at 1.7mg, pharmacy made her wait 2 weeks prior to dispensing medication. So she is still completing 1.7mg, she will do this for 4 weeks total and progress to next dose Foot Injury The incident occurred more than 1 week ago. There was no injury mechanism. The pain is present in the right ankle and right foot. The quality of the pain is described as aching (throbbing sharp at times). The pain is moderate. The pain has been Constant since onset. Associated symptoms include an inability to bear weight and a loss of motion. Pertinent negatives include no muscle weakness. She reports no foreign bodies present. The symptoms are aggravated by movement, weight bearing and palpation. She has tried ice and NSAIDs for the symptoms. The treatment provided mild relief. Hypertension This is a chronic problem. The current episode started more than 1 year ago. The problem is unchanged. The problem is controlled. Associated symptoms include peripheral edema. Pertinent negatives include no anxiety, blurred vision, chest pain, headaches, palpitations, PND or shortness of breath. There are no associated agents to hypertension. Risk factors for coronary artery disease include obesity and post-menopausal state. Past treatments include diuretics and ELISABETH inhibitors. The current treatment provides significant improvement. There are no compliance problems. SUBJECTIVE: MEDICATIONS: Current Outpatient Medications Medication Instructions albuterol HFA 90 mcg/act inhaler 2 puffs, Inhalation, Every 4 hours PRN atorvastatin (LIPITOR) 40 mg, Oral, Nightly cholecalciferol (Vitamin D-3) 25 MCG tablet 3 tablets, Oral, Daily cyclobenzaprine (Flexeril) 5 MG tablet 1 tablet, Oral, Nightly Elastic Bandages & Supports (JOBST KNEE HIGH COMPRESSION SM) misc 1 Units, Does not apply, Daily, Jobst UltraSheer 20-30 mmHg Large - knee high compression hose. On in AM off in PM estradiol (ESTRACE) 2 mg, Oral, Every 24 hours ferrous sulfate 325 mg, Oral, Every 12 hours fexofenadine (CONCHIS) 180 mg, Oral, Daily hydroCHLOROthiazide (HYDRODIURIL) 25 mg, Oral, 2 times daily PRN ibuprofen 800 mg, Oral, 3 times daily PRN levothyroxine (SYNTHROID) 150 mcg, Oral, Daily before breakfast lisinopril 20 mg, Oral, Daily MULTIPLE VITAMIN PO 1 tablet, Oral, Every 24 hours nystatin-triamcinolone (Mycolog II) cream 1 application , Topical, Every 12 hours Wegovy 1.7 mg, Subcutaneous, Every 7 days ALLERGIES: No Known Allergies REVIEW OF SYMPTOMS: Review of Systems Constitutional: Negative for appetite change, chills and fever. HENT: Negative for congestion, ear pain and sore throat. Eyes: Negative for blurred vision, pain, discharge, redness and visual disturbance. Respiratory: Negative for cough, shortness of breath and wheezing. Cardiovascular: Positive for leg swelling. Negative for chest pain, palpitations and PND. Gastrointestinal: Negative for abdominal pain, blood in stool, constipation, diarrhea, nausea and vomiting. Genitourinary: Negative for difficulty urinating, dysuria and frequency. Musculoskeletal: Positive for arthralgias. Negative for back pain, joint swelling and myalgias. Skin: Negative for rash and wound. Neurological: Negative for dizziness, tremors, seizures, syncope and headaches. Psychiatric/Behavioral: Negative for behavioral problems, self-injury and suicidal ideas. The patient is not nervous/anxious. Hematological: Does not bruise/bleed easily. Endocrine: Negative for polydipsia, polyphagia and polyuria. Allergic/Immunologic: Negative for environmental allergies and food allergies. PAST MEDICAL HISTORY Past Medical History: Diagnosis Date Acquired hypothyroidism (CMS/HCC) Allergic rhinitis Anemia iron def,. Asymptomatic microscopic hematuria 08/18/2023 Atopic dermatitis, unspecified type Bilateral lower extremity edema 09/08/2023 Chronic atrophic candidiasis Chronic vulvovaginitis 02/24/2023 Class 3 severe obesity without serious comorbidity in adult (CMS/HCC) 08/20/2023 COVID-19 07/2020 Dyslipidemia (CMS/HCC) Hammertoe of left foot Hypertension (CMS/HCC) Hypertriglyceridemia (CMS/HCC) Hypertrophic scar Iron deficiency anemia secondary to blood loss (chronic) Has been seeing Clemente, not happy with continuous vaginal bleeding and no resolution. Is considering a second opinion. Left shoulder pain, unspecified chronicity Prior fracture left humerus. Recent exacerbation of pain, saw Dr Woods in past. Menopausal vaginal dryness Discussed options of treatment, including nonhormonal vs hormonal, to include R/B/A as well as SE. Reviewed results of WHI study. All of pt's ? were answered and she expressed understanding. HRT prescribed, per previous prescription, after R/B/A as well as SE were reviewed.Advised ERT not recommended beyond age 65, secondary to increased risk of breast cancer, & stroke/DVT. given for mammogram Morbid obesity (CMS/HCC) Muscle spasm LORENZA on CPAP sleep study 04/21/2016: AHI 55, severe sleep apnea, settings CPAP pressure 12 Overweight (BMI 25.0-29.9) Paronychia, toe, left PCOS (polycystic ovarian syndrome) Prediabetes Predislocation syndrome of metatarsophalangeal joint, left Primary hypertension (CMS/HCC) 09/08/2023 Rash of hand Restless leg syndrome Scar contracture Thyroid nodule (CMS/HCC) with hypothyroidism Vision changes Past Surgical History: Procedure Laterality Date CARPAL TUNNEL RELEASE 1992 SECTION, LOW TRANSVERSE 1984 1985 1988 COLONOSCOPY 01/2019 Normal. repeat in 10 years FOOT SURGERY Left 07/2021 plates and screws. 2nd toe screws HYSTERECTOMY 2017 STAH BSO family history includes Cancer in her brother, mother, and paternal grandfather; Diabetes in her brother, brother, mother, and sister; Heart disease in her father; Heart failure in her father; Hyperlipidemia in her mother; Hypertension in her brother, brother, father, mother, and sister; Multiple myeloma in her maternal grandmother and mother; Stomach cancer in her maternal grandfather; Thyroid disease in her father and mother; Uterine cancer in her sister. OBJECTIVE: Visit Vitals BP 122/80 (BP Location: Left arm, Patient Position: Sitting, BP Cuff Size: Adult long) Pulse 79 Temp 97.8 F (Temporal) Resp 20 Ht 5' 7 Wt 288 lb SpO2 97% BMI 45.11 kg/m OB Status Hysterectomy Smoking Status Former BSA 2.49 m Physical Exam Vitals and nursing note reviewed. Constitutional: General: She is not in acute distress. Appearance: Normal appearance. HENT: Head: Normocephalic and atraumatic. Right Ear: External ear normal. Left Ear: External ear normal. Nose: Nose normal. Mouth/Throat: Mouth: Mucous membranes are moist. Eyes: Extraocular Movements: Extraocular movements intact. Conjunctiva/sclera: Conjunctivae normal. Cardiovascular: Rate and Rhythm: Normal rate and regular rhythm. Pulses: Normal pulses. Heart sounds: Normal heart sounds. Pulmonary: Effort: Pulmonary effort is normal. Breath sounds: Normal breath sounds. Abdominal: General: Bowel sounds are normal. There is no distension. Palpations: Abdomen is soft. There is no mass. Tenderness: There is no abdominal tenderness. Musculoskeletal: General: Normal range of motion. Cervical back: Normal range of motion and neck supple. Right lower leg: Edema present. Left lower leg: Edema present. Comments: Edema 1+ bilat pre tibial and pedal bilat Right foot achilles is intact, +tenderness to calcaneous-mid foot, also pain with inversion of the right ankle, no lateral/medial malleolar tenderness noted Skin: General: Skin is warm and dry. Capillary Refill: Capillary refill takes 2 to 3 seconds. Findings: No rash. Neurological: General: No focal deficit present. Mental Status: She is alert and oriented to person, place, and time. Psychiatric: Mood and Affect: Mood normal. Behavior: Behavior normal. Thought Content: Thought content normal. Judgment: Judgment normal. ASSESSMENT AND PLAN: No follow-ups on file. Problem List Items Addressed This Visit Class 3 severe obesity without serious comorbidity in adult (CMS/HCC) Cont wegovy, increase to 1mg for 4 weeks then 2.4mg Fu in 8 weeks Relevant Medications Semaglutide-Weight Management (Wegovy) 2.4 MG/0.75ML solution auto-injector Primary hypertension (CMS/HCC) - Primary Stable today no changes Bilateral lower extremity edema Stable, adjusts the 2nd dose of hydrochlorothiazide when swelling is worse Plantar fasciitis, right Is established with Lacie, I have discussed what I believe the diagnosis is, she can use ibuprofen as directed She will call podiatry to schedule and also hand out given on PF exerxcises documented in this encounter [facility] 10-14-2022 Note PROCEDURE: XR ANKLE RT MIN [...] authenticated by: MEGAN DANGELO Date: 2022-10-14 11:36 [facility] 10-14-2022 Note PROCEDURE: XR ANKLE RT MIN [...] authenticated by: MEGAN DANGELO Date: 2022-10-14 11:36 [facility] 08-14-2022 Note PROCEDURE: XR FOOT L T [...] by: JOHN MCDONOUGH Date: 2022-08-13 23:22 [facility] 06-03-2022 Note PROCEDURE: XR FOOT L T [...] by: JOHN MCDONOUGH Date: 2022-06-03 16:04 [facility] 03-25-2022 Note PROCEDURE: XR FOOT L T [...] by: MEGAN DANGELO Date: 2022-03-25 19:35 [facility] 01-28-2022 Note PROCEDURE: XR FOOT L T [...] by: JOHN MCDONOUGH Date: 2022-01-28 14:19 [facility] Evaluation note Diagnosis Primary hypertension (CMS/HCC)- Primary Unspecified essential hypertension Class 3 severe obesity due to excess calories without serious comorbidity with body mass index (BMI) of 45.0 to 49.9 in adult (CMS/HCC) Acquired hypothyroidism (CMS/HCC) Unspecified hypothyroidism Rash Rash and other nonspecific skin eruption Primary hypertension (CMS/HCC)- Primary Unspecified essential hypertension Bilateral lower extremity edema Class 3 severe obesity due to excess calories without serious comorbidity with body mass index (BMI) of 45.0 to 49.9 in adult (CMS/HCC) Plantar fasciitis, right- Primary Primary hypertension (CMS/HCC) Unspecified essential hypertension Class 3 severe obesity due to excess calories without serious comorbidity with body mass index (BMI) of 45.0 to 49.9 in adult (CMS/HCC) Bilateral lower extremity edema Other chronic pain- Primary documented [facility] Diagnosis Primary hypertension (CMS/HCC)- Primary Unspecified essential hypertension Class 3 severe obesity due to excess calories without serious comorbidity with body mass index (BMI) of 45.0 to 49.9 in adult (CMS/HCC) Acquired hypothyroidism (CMS/HCC) Unspecified hypothyroidism Rash Rash and other nonspecific skin eruption Primary hypertension (CMS/HCC)- Primary Unspecified essential hypertension Bilateral lower extremity edema Class 3 severe obesity due to excess calories without serious comorbidity with body mass index (BMI) of 45.0 to 49.9 in adult (CMS/HCC) Plantar fasciitis, right- Primary Primary hypertension (CMS/HCC) Unspecified essential hypertension Class 3 severe obesity due to excess calories without serious comorbidity with body mass index (BMI) of 45.0 to 49.9 in adult (CMS/HCC) Bilateral lower extremity edema Class 3 severe obesity due to excess calories without serious comorbidity with body mass index (BMI) of 45.0 to 49.9 in adult (CMS/HCC)- Primary documented in this encounter [facility]* Diagnosis Primary hypertension (CMS/HCC)- Primary Unspecified essential hypertension Class 3 severe obesity due to excess calories without serious comorbidity with body mass index (BMI) of 45.0 to 49.9 in adult (CMS/HCC) Acquired hypothyroidism (CMS/HCC) Unspecified hypothyroidism Rash Rash and other nonspecific skin eruption Primary hypertension (CMS/HCC)- Primary Unspecified essential hypertension Bilateral lower extremity edema Class 3 severe obesity due to excess calories without serious comorbidity with body mass index (BMI) of 45.0 to 49.9 in adult (CMS/HCC) Plantar fasciitis, right- Primary Primary hypertension (CMS/HCC) Unspecified essential hypertension Class 3 severe obesity due to excess calories without serious comorbidity with body mass index (BMI) of 45.0 to 49.9 in adult (CMS/HCC) Bilateral lower extremity edema Encounter for adult wellness visit- Primary Morbid (severe) obesity due to excess calories (CMS/HCC) Body mass index (BMI) 45.0-49.9, adult ([facility]) Primary hypertension (CMS/HCC) Unspecified essential hypertension Bilateral lower extremity edema Class 3 severe obesity due to excess calories without serious comorbidity with body mass index (BMI) of 45.0 to 49.9 in adult (CMS/HCC) Essential (primary) hypertension (CMS/HCC) Unspecified essential hypertension Pure hyperglyceridemia (CMS/HCC) Pure hyperglyceridemia Acute non-recurrent maxillary sinusitis documented in this encounter [facility]* Diagnosis Primary hypertension (CMS/HCC)- Primary Unspecified essential hypertension Class 3 severe obesity due to excess calories without serious comorbidity with body mass index (BMI) of 45.0 to 49.9 in adult (CMS/HCC) Acquired hypothyroidism (CMS/HCC) Unspecified hypothyroidism Rash Rash and other nonspecific skin eruption Primary hypertension (CMS/HCC)- Primary Unspecified essential hypertension Bilateral lower extremity edema Class 3 severe obesity due to excess calories without serious comorbidity with body mass index (BMI) of 45.0 to 49.9 in adult (CMS/HCC) Plantar fasciitis, right- Primary Primary hypertension (CMS/HCC) Unspecified essential hypertension Class 3 severe obesity due to excess calories without serious comorbidity with body mass index (BMI) of 45.0 to 49.9 in adult ([facility] [place]) Bilateral lower extremity edema Encounter for adult wellness visit- Primary Morbid (severe) obesity due to excess calories ([facility] [place]) Body mass index (BMI) 45.0-49.9, adult ([facility] [place]) Primary hypertension ([facility] [place]) Unspecified essential hypertension Bilateral lower extremity edema Class 3 severe obesity due to excess calories without serious comorbidity with body mass index (BMI) of 45.0 to 49.9 in adult ([facility] [place]) Essential (primary) hypertension ([facility] [place]) Unspecified essential hypertension Pure hyperglyceridemia ([facility] [place]) Pure hyperglyceridemia Acute non-recurrent maxillary sinusitis Encounter for gynecological examination without abnormal finding Screening for malignant neoplasm of cervix Screening for malignant neoplasm of the cervix Breast cancer screening by mammogram Hormone replacement therapy documented in this encounter [facility]* Diagnosis Plantar fasciitis, right- Primary Primary hypertension ([facility] [place]) Unspecified essential hypertension Class 3 severe obesity due to excess calories without serious comorbidity with body mass index (BMI) of 45.0 to 49.9 in adult ([facility] [place]) Bilateral lower extremity edema documented [facility] Diagnosis Primary hypertension ([facility] [place])- Primary Unspecified essential hypertension Class 3 severe obesity due to excess calories without serious comorbidity with body mass index (BMI) of 45.0 to 49.9 in adult ([facility] [place]) Acquired hypothyroidism ([facility] [place]) Unspecified hypothyroidism Rash Rash and other nonspecific skin eruption Primary hypertension ([facility] [place])- Primary Unspecified essential hypertension Bilateral lower extremity edema Class 3 severe obesity due to excess calories without serious comorbidity with body mass index (BMI) of 45.0 to 49.9 in adult ([facility] [place]) Plantar fasciitis, right- Primary Primary hypertension ([facility] [place]) Unspecified essential hypertension Class 3 severe obesity due to excess calories without serious comorbidity with body mass index (BMI) of 45.0 to 49.9 in adult ([facility] [place]) Bilateral lower extremity edema Encounter for adult wellness visit- Primary Morbid (severe) obesity due to excess calories ([facility] [place]) Body mass index (BMI) 45.0-49.9, adult ([facility] [place]) Primary hypertension ([facility] [place]) Unspecified essential hypertension Bilateral lower extremity edema Class 3 severe obesity due to excess calories without serious comorbidity with body mass index (BMI) of 45.0 to 49.9 in adult (CMS/HCC) Essential (primary) hypertension (CMS/HCC) Unspecified essential hypertension Pure hyperglyceridemia (CMS/HCC) Pure hyperglyceridemia Acute non-recurrent maxillary sinusitis Class 3 severe obesity due to excess calories without serious comorbidity with body mass index (BMI) of 40.0 to 44.9 in adult (CMS/HCC)- Primary documented in this encounter [facility] Summary Purpose Family History No Family History Records FoundNo Family History Records Found Advance Directives No Advanced Directives Records FoundNo Advanced Directives Records Found Additional Source Comments INFORMATION SOURCE (unrecogn ized section and content) DATE CREATED AUTHOR 01/23/2023 [facility] DATE CREATED AUTHOR AUTHOR'S ORGANIZ ATION 08/25/2024 [facility] EPIC Reason for Visit (unrecogniz ed section and content) Reason Onset Date Comments Med Refill 08/07/2024 Reason Comments Hypertension Reason Comments Gynecologic Exam LMP: STAH BSO 2017HR T: Estradiol 2 MG - satisfied. Last pap 08-17-23 neg.Mammograms ordered by PCP at [facility]. Denies breast, urinary, or bowel concerns. Menopause Questions how long t o be on Estradiol. Care Teams (unrecognized sec tion and content) Subcontracts Manager Relationship Specialty Start Date End Date Charan Quinn MD [address] [place] [id number] PCP - General Family Medicine 01/20/24 Bijal Antunez NP [address] [place] [phone] [facility] Bijal Antunez NP [address] [place] [id number] Nurse Practitioner Family Medicine 01/20/24 Subcontracts Manager Relationship Specialty Start Date End Date Charan Quinn MD [address] [place] [phone] PCP - General Family Medicine 01/20/24 Bijal Antunez NP [address] [place] [id number] PCP - [employer] 12/14/23 Bijal Antunez NP [address] [place] [phone] Nurse Practitioner Family Medicine 01/20/24 Subcontracts Manager Relationship Specialty Start Date End Date Charan Quinn MD [address] [place] [phone] PCP - General Family Medicine 01/20/24 Bijal Antunez NP [address] [place] [id number] PCP - [employer] 12/14/23 Bijal Antunez NP [address] [place] [phone] Nurse Practitioner Family Medicine 01/20/24 Subcontracts Manager Relationship Specialty Start Date End Date Charan Quinn MD [address] [place] [phone] PCP - General Family Medicine 01/20/24 Bijal Antunez NP [address] [place] [phone] PCP - [employer] 12/14/23 Bijal Antunez NP [address] [place] [address] Nurse Practitioner Family Medicine 01/20/24 Subcontracts Manager Relationship Specialty Start Date End Date Charan Quinn MD [address] [place] [address] PCP - General Family Medicine 01/20/24 Bijal Antunez NP [address] [place] [address] PCP - [employer] 12/14/23 Bijal Antunez NP [address] [place] [phone] Nurse Practitioner Family Medicine 01/20/24 Subcontracts Manager Relationship Specialty Start Date End Date Charan Quinn MD [address] [place] [phone] PCP - General Family Medicine 01/20/24 Bijal Antunez NP [address] [place] [phone] PCP - [employer] 12/14/23 Bijal Antunez NP [address] [place] [address] Nurse Practitioner Family Medicine 01/20/24 Subcontracts Manager Relationship Specialty Start Date End Date Charan Quinn MD [address] [place] [phone] PCP - General Family Medicine 01/20/24 Bijal Antunez NP [address] [place] [phone] [facility] Bijal Antunez NP [address] [place] [phone] Nurse Practitioner [facility] Medicine 01/20/24 Subcontracts Manager Relationship Specialty Start Date End Date Charan Quinn MD [address] [place] [address] PCP General [facility] 01/20/24 Bijal Antunez NP [address] [place] [phone] [facility] 12/14/23 Bijal Antunez NP [address] [place] [phone] Nurse Practitioner [facility] 01/20/24 FOR RECORDS PERTAINING TO PATIENTS WHO ARE [...] BE BASED ON THE PRIMARY CLINICAL RECORDS. [facility]. provides no warranty or guarantee of the accuracy or completeness of information in this document.
[2024-09-10 12:10] LABS: Creatinine Urine Random 245.77 mg/dL (20.00-300.00); Microalbumin Urine Random <1.3 mg/dL (<=30.0)
[2024-09-10 12:32] LABS: Bilirubin Urine NEGATIVE (NEGATIVE); Blood Urine NEGATIVE (NEGATIVE); Clarity Urine CLEAR (CLEAR); Color Urine YELLOW (YELLOW); Glucose Urine UA NEGATIVE (NEGATIVE); Ketones Urine NEGATIVE (NEGATIVE); Leukocyte Esterase Urine TRACE (NEGATIVE); Nitrite Urine NEGATIVE (NEGATIVE); Protein Urine NEGATIVE (NEG/TRACE); Specific Gravity Urine 1.025 (1.005-1.025); Urobilinogen Urine 0.2 EU/dL (0.2-1.0)
[2024-09-10 12:35] LABS: Urine Microscopic Indicated YES
[2024-09-10 12:36] LABS: Basophils Percent Auto 0.5 % (0.2-2.0); Eosinophils Absolute Auto 0.1 10^3/uL (0.0-0.7); Eosinophils Percent Auto 2.1 % (0.9-7.0); Hematocrit 38.8 % (36.0-48.0); Hemoglobin 12.9 g/dL (12.0-16.0); Immature Granulocytes Abs Auto 0.01 10^3/uL (0.00-0.03); Immature Granulocytes Pct Auto 0.2 % (0.0-0.5); Lymphocytes Absolute Auto 1.5 10^3/uL (1.2-3.8); Lymphocytes Percent Auto 22.2 % (20.5-60.0); Mean Corpuscular HGB Conc 33.2 g/dL (29.9-35.2); Mean Corpuscular Hemoglobin 31.7 pg (26.7-34.0); Mean Corpuscular Volume 95.3 fL (81.0-99.0); Mean Platelet Volume 8.6 fL (9.5-13.5); Monocytes Absolute Auto 0.4 10^3/uL (0.3-0.8); Monocytes Percent Auto 5.4 % (1.7-12.0); Neutrophils Absolute Auto 4.6 10^3/uL (1.4-6.5); Neutrophils Percent Auto 69.6 % (43.0-75.0); Platelet Count 360 10^3/uL (150-450); Red Blood Count 4.07 10^6/uL (4.20-5.40); Red Cell Distribution Width 12.5 % (11.0-15.0); White Blood Count 6.6 10^3/uL (4.0-11.0)
[2024-09-10 13:07] LABS: Bacteria Urine SMALL #/HPF (NONE SEEN); Cast Seen? NONE SEEN #/LPF (NONE SEEN); Crystals Seen? None Seen #/HPF (None Seen); Mucus Urine SMALL (NONE SEEN); RBC Urine 0-2 #/HPF (0-2); Squamous Epithelial Cell Urine FEW #/LPF (NONE/RARE); WBC Urine 0-2 #/HPF (NONE SEEN)
[2024-09-10 13:08] LABS: Urine Culture Indicated YES
[2024-09-10 13:22] LABS: Free T4 1.19 ng/dL (0.76-1.46)
[2024-09-10 13:37] LABS: Carbon Dioxide 30.9 mmol/L (21.0-32.0); Chloride 102 mmol/L (98-107); Potassium 3.9 mmol/L (3.5-5.1); Sodium 140 mmol/L (136-145)
[2024-09-10 13:38] LABS: BUN Creatinine Ratio 15.5; Calcium 9.3 mg/dL (8.5-10.1); Estimated GFR (African America >60 (>=60 mL/min/1.73m^2); Estimated GFR (Non-African Ame >60 (>=60 mL/min/1.73m^2); Glucose 90 mg/dL (74-106)
[2024-09-10 13:39] LABS: Alanine Aminotransferase 134 U/L (14-59); Albumin Globulin Ratio 0.9; Albumin Level 3.5 g/dL (3.4-5.0); Alkaline Phosphatase 88 U/L (46-116); Aspartate Amino Transferase 60 U/L (15-37); Bilirubin Total 0.4 mg/dL (0.2-1.0); Globulin 3.9 g/dL; Total Protein 7.4 g/dL (6.4-8.2); Triglycerides 299 mg/dL (<=150); VLDL CHOLESTEROL 59.8 mg/dL
[2024-09-10 13:40] LABS: Chol HDL Ratio 5.2; Cholesterol 270 mg/dL (<=200); HDL Cholesterol 52 mg/dL (40-60); Thyroid Stimulating Hormone 0.695 uIU/mL (0.358-3.740)
[2024-09-13 09:38] LABS: BOX Test Reference Lab FIRELANDS
== END 2024-09-10 11:45 | disposition home or self-care (01) ==
LOC: LAB 11:46
PROVIDERS: PCP Nurse Practitioner; Visit Provider Nurse Practitioner
DX: Z00.00 Encounter for general adult medical examination without abnormal findings (principal)
CPT/HCPCS: 36415; 80053; 80061; 81001; 82043; 82570; 84439; 84443; 85025; 87086

== ENCOUNTER 2024-09-26 16:19 | Outpatient (OUT) | payer BC, SELFPAY ==
--- OUTSIDE RECORDS SUMMARY | 2024-09-26 16:34 | XMS_ITS | CCD ---
Author Organization [facility] Care Team Providers Care Research Neuropsychologist Name Role Phone AICHHOLZ, ART CONSULTANT BIJAL Attending Unavailable AICHHOLZ, ART CONSULTANT BIJAL Admitting Unavailable AICHHOLZ, ART CONSULTANT BIJAL Primary Care Unavailable AICHHOLZ, ART CONSULTANT BIJAL Consulting Unavailable AICHHOLZ, ART CONSULTANT BIJAL Primary Care Unavailable RAF NGUYEN Attending Unavailable PATRICK, RAF Admitting Unavailable John Mcdonough Consulting Unavailable RAF NGUYEN Consulting Unavailable AICHHOLZ, ART CONSULTANT BIJAL Primary Care Unavailable RAF NGUYEN Attending Unavailable PATRICK RAF Admitting Unavailable [place]ING, DR MEGAN Glaser Consulting Unavailable PATRICK, RAF Consulting Unavailable AICHHOLZ, ART CONSULTANT BIJAL Primary Care Unavailable TIMMIS, DR DIXON Attending Unavailable TIMMIS, DR DIXON Admitting Unavailable TIMMIS, DR DIXON Consulting Unavailable AICHHOLZ, ART CONSULTANT BIJAL Primary Care Unavailable PATRICK RAF Attending Unavailable John Mcdonough Consulting Unavailable PATRICK, RAF Admitting Unavailable RFA NGUYEN Consulting Unavailable AICHHOLZ, ART CONSULTANT BIJAL Consulting Unavailable AICHHOLZ, ART CONSULTANT BIJAL Attending Unavailable AICHHOLZ, ART CONSULTANT BIJAL Admitting Unavailable AICHHOLZ, ART CONSULTANT BIJAL Primary Care Unavailable AICHHOLZ, ART CONSULTANT BIJAL Primary Care Unavailable DEVEN RIVAS Admitting Unavailable DEVEN RIVAS Consulting Unavailable DEVEN RIVAS Attending Unavailable MEGAN ZAMBRANO Consulting Unavailable KO ., FAROOQ Admitting Unavailable AICHHOLZ, ART CONSULTANT BIJAL Primary Care Unavailable KO ., FAROOQ Attending Unavailable KO ., FAROOQ Attending Unavailable KO ., FAROOQ Admitting Unavailable AICHHOLZ, ART CONSULTANT BIJAL Primary Care Unavailable KO ., FAROOQ Consulting Unavailable AICHHOLZ, ART CONSULTANT BIJAL Primary Care Unavailable DEVEN RIVAS Admitting Unavailable DR MEGAN DANGELO V Consulting Unavailable DEVEN RIVAS Attending Unavailable DEVEN RIVAS Consulting Unavailable AICHHOLZ, GLENNY BIJAL Attending Unavailable AICHHOLZ, ART CONSULTANT BIJAL Admitting Unavailable AICHHOLZ, ART CONSULTANT BIJAL Primary Care Unavailable ANTOLIN, DR MEGAN Glaser Consulting Unavailable AICHHOLZ, GLENNY BIJAL Consulting Unavailable AICHHOLZ, ART CONSULTANT BIJAL Attending Unavailable AICHHOLZ, ART CONSULTANT BIJAL Admitting Unavailable AICHHOLZ, ART CONSULTANT BIJLA Primary Care Unavailable AICHHOLZ, ART CONSULTANT BIJAL Consulting Unavailable AICHHOLZ, ART CONSULTANT BIJAL Primary Care Unavailable DEVEN RIVAS Attending Unavailable DEVEN RIVAS Admitting Unavailable John Mcdonough Consulting Unavailable DEVEN RIVAS Consulting Unavailable Charan Quinn MD Primary Care Provider Aichholtamar SUPERVISOR DAIRY SANITATION, Bijal Unavailable Aichholtamar SUPERVISOR DAIRY SANITATION, Bijal Unavailable HARMONY, BIJAL Attending Unavailable DESTINY YANG Attending Unavailable DESTINY YANG Attending Unavailable HARMONY, BIJAL Attending Unavailable HARMONY, BIJAL Attending Unavailable HARMONY, BIJAL Attending Unavailable KLAUDIA BARAKAT Attending Unavailable NON STAFF Attending Unavailable NON STAFF Admitting Unavailable Medications Current Medications Medication Drug Class(es) Dates Sig (Normalized) Sig (Original) [id number] 200 actuat albuterol 0.09 mg/actuat metered dose inhaler (14 sources) beta2-Adrenergic Agonist Start: 11-09-2023 take 2 puff(s) by inhalation every four hours for wheezing albuterol HFA 90 mcg/act inhaler Indications: Wheezing Inhale 2 puffs every 4 (four) hours if needed for wheezing 18 g 2 11/09/2023 Active amoxicillin 500 mg oral capsule (1 source) Penicillin-class Antibacterial Start: 09-19-2024 End: 09-26-2024 take 1 capsule by mouth in the morning amoxicillin (Amoxil) 500 MG capsule Indications: UTI symptoms Take 1 capsule (500 mg) by mouth in the morning and 1 capsule (500 mg) before bedtime. Do all this for 7 days. 14 capsule 09/19/2024 09/26/2024 Active amoxicillin 875 mg / clavulanate 125 [...] 08/27/2024 Active atorvastatin 40 mg oral tablet (15 sources) HMG-CoA Reductase Inhibitor Start: 04-25-2024 End: 11-15-2024 take 1 tablet by mouth at bedtime atorvastatin (Lipitor) 40 MG tablet Indications: Pure hyperglyceridemia (CMS/HCC) Take 1 tablet (40 mg) by mouth at bedtime 90 tablet 1 08/17/2024 11/15/2024 Active cholecalciferol 0.025 mg oral tablet (14 sources) Vitamin D take 1 tablet by mouth once daily cholecalciferol (Vitamin D-3) 25 MCG tablet Take 1 tablet by mouth Daily Active take 3 tablets by mouth in the m orning cholecalciferol (Vitamin D-3) 25 MCG tablet Take 3 tablets by mouth in the morning. Active cyclobenzaprine hydrochloride 5 mg oral tablet (14 sources) Muscle Relaxant cyclobenzaprine (Flexeril) 5 MG tablet Take 1 tablet by mouth as needed at bedtime for muscle spasms Active Elastic Bandages & Supports (JOBST KNEE HIGH COMPRESSION SM) misc (14 sources) Elastic Bandages & Supports (JOBST KNEE HIGH COMPRESSION SM) misc 1 Units in the morning. Jobst UltraSheer 20-30 mmHg Large - knee high compression hose. On in AM off in PM. Active estradiol 2 mg oral tablet (15 sources) Estrogen Start: 08-19-20 End: 08-22-20 24 take 1 tablet by mouth once daily estradiol (Estrace) 2 MG tablet Indications: Hormone replacement therapy Take 1 tablet (2 mg) by mouth Daily 90 tablet 3 08/22/2024 Active Start: 07-05-2024 take 1 tablet by ralph [...] Active ferrous sulfate 325 mg oral tablet (14 sources) take 1 tablet by ralph th at mealtime ferrous sulfate 325 (65 Fe) MG tablet Take 325 mg by mouth in the morning. Take with meals. Active ferrous sulfate 325 (65 Fe) MG tablet Take 325 mg by mouth every 12 (twelve) hours. Active fexofenadine hydrochloride 180 mg oral tablet (14 sources) Histamine-1 Receptor Antagonist take 1 tablet by mouth in the morning fexofenadine (Conchis) 180 MG tablet Take 180 mg by mouth in the morning. Active hydroCHLOROthiazide 25 mg oral tablet (15 sources) Thiazide Diuretic Start : 03-07 End: [...] Active levothyroxine sodium 0.15 mg oral tablet (14 sources) l-Thyroxine Start : 04-04 End: 04-04 take 1 tablet by mouth before mealtime levothyroxine (Synthroid) 150 MCG tablet Indications: Acquired hypothyroidism (CMS/HCC) Take 1 tablet (150 mcg) by mouth in the morning. Take before meals. 90 tablet 3 04/04/2024 04/04/2025 Active lisinopril 20 mg oral tablet (15 sources) Angiotensin Converting Enzyme Inhibitor Start : 02-17 End: 11-15 take 1 tablet by mouth once daily lisinopril 20 MG tablet Indications: Essential (primary) hypertension (CMS/HCC) Take 1 tablet (20 mg) by mouth Daily 90 tablet 1 08/17/2024 11/15/2024 Active nystatin [id number] unt/ml / triamcinolone acetonide 1 mg/ml topical cream (14 sources) Polyene Antifungal, Corticosteroid nystatin-triamcinolo ne (Mycolog II) cream Apply 1 application topically every 12 (twelve) hours. Active Semaglutide-Weight Management (Wegovy) 2.4 MG/0.75ML solution auto-injector (13 sources) Start : 08-17 End: 09-14 Semaglutide-Weight Management (Wegovy) 2.4 MG/0.75ML solution auto-injector Indications: Class 3 severe obesity due to excess calories without serious comorbidity with body mass index (BMI) of 45.0 to 49.9 in adult (CMS/HCC) Inject 2.4 mg under the skin every 7 (seven) days for 28 days g 3 mL 3 08/17/2024 09/14/2024 Active Start: 08-10-2024 End: 08-17-2024 Semaglutide-Weight Managemen t (Wegovy) 2.4 MG/0.75ML solution auto-injector Indications: Class 3 severe obesity due to excess calories without serious comorbidity with body mass index (BMI) of 45.0 to 49.9 in adult (CMS/HCC) Inject 2.4 mg under the skin every 7 (seven) days for 28 days g 3 mL 1 08/10/2024 08/17/2024 Discontinued (Reorder) Start: 08-10-2024 End: 09-07-2024 Semaglutide-Weight Managemen t (Wegovy) 2.4 MG/0.75ML solution auto-injector Indications: Class 3 severe obesity due to excess calories without serious comorbidity with body mass index (BMI) of 45.0 to 49.9 in adult (CMS/HCC) Inject 2.4 mg under the skin every 7 (seven) days for 28 days g 3 mL 1 08/10/2024 09/07/2024 Active Start: 05-25-2024 End: 06-22-2024 Semaglutide-Weight Managemen t (Wegovy) 2.4 MG/0.75ML solution auto-injector Indications: Class 3 severe obesity due to excess calories without serious comorbidity with body mass index (BMI) of 45.0 to 49.9 in adult (CMS/HCC) Inject 2.4 mg under the skin every 7 (seven) days for 28 days 3 mL 2 05/25/2024 06/22/2024 Active Tirzepatide-Weight Managemen t (Zepbound) 2.5 MG/0.5ML solution auto-injector (6 sources) Start: 09-08-2024 End: 10-06-2024 Tirzepatide-Weight Managemen t (Zepbound) 2.5 MG/0.5ML solution auto-injector Indications: Class 3 severe obesity due to excess calories without serious comorbidity with body mass index (BMI) of 40.0 to 44.9 in adult (CMS/HCC) Inject 2.5 mg under the skin 1 [...] (BMI) of 45.0 to 49.9 in adult (CMS/[facility]) Inject 1.7 mg under the skin every 7 (seven) days for 28 days 3 mL 04/29/2024 05/25/2024 Discontinued (Therapy completed) Start: 04-29-2024 End: 05-27-2024 Semaglutide-Weight Managemen t (Wegovy) 1.7 MG/0.75ML solution auto-injector Indications: Class 3 severe obesity due to excess calories without serious comorbidity with body mass index (BMI) of 45.0 to 49.9 in adult ([facility]) Inject 1.7 mg under the skin every 7 (seven) days for 28 days 3 mL 04/29/2024 05/27/2024 Active Problems Active Problems Problem Classification Problem Date Documented Date Episodic/Chronic Disorders of lipid metabolism (6 sources) Hyperlipidemia, unspecified; Translations: [Pure hyperglyceridemia] Onset: 06-28-2022 Chronic Essential hypertension (20 sources) Essential (primary) hypertension; Translations: [Essential hypertension] Onset: 01-17-2023 Chronic Genitourinary symptoms and ill-defined conditions (16 sources) Asymptomatic microscopic hematuria; Translations: [Asymptomatic microscopic hematuria] Onset: 08-18-2023 08-18-2023 Episodic Menopausal disorders (1 source) Drug therapy finding; [...] Onset: 04-08-2022 Chronic Other nervous system disorders (12 sources) Chronic pain; Translations: [Other chronic pain] Onset: 08-08-2024 08-08-2024 Chronic Other nutritional; endocrine; and metabolic disorders (1 source) Obesity, unspecified; Translations: [OBESITY UNSPECIFIED] Onset: 04-08-2022 Chronic Other nutritional; endocrine; and metabolic disorders (20 sources) Severe obesity; Translations: [Class 3 severe obesity without serious comorbidity in adult] Onset: 08-20-2023 08-20-2023 Chronic Other nutritional; endocrine; and metabolic disorders (11 sources) Body mass index 40+ - severely obese; Translations: [Body mass index (BMI) 45.0-49.9, adult] Onset: 08-17-2024 08-17-2024 Chronic Other screening for suspected conditions (not mental disorders or infectious disease) (10 sources) Encounter for screening mammogram for malignant [...] sources) Prediabetes; Translations: [PREDIABETES] Onset: 07-02-2022 Episodic Headache; including migraine (14 sources) Headache; Translations: [Headache] Onset: 04-14-2024 Resolved: 04-14-2024 04-14-2024 Episodic Inflammatory diseases of female pelvic organs (14 sources) Chronic vulvovaginitis; Translations: [Subacute and chronic vaginitis] Onset: 02-24-2023 Resolved: 02-24-2023 02-24-2023 Episodic Other circulatory disease (14 sources) Pulmonary congestion ; Translations: [Other specified symptoms and signs involving the circulatory and respiratory systems] Onset: 04-14-2024 Resolved: 04-14-2024 04-14-2024 Episodic Other connective tissue disease (1 source) Pain in right foot; Translations: [PAIN IN RIGHT FOOT] Onset: 10-15-2022 Episodic Other connective tissue disease (4 sources) Pain in left foot; Translations: [PAIN IN LEFT FOOT] Onset: 08-13-2022 Episodic Other connective tissue disease (15 sources) Plantar fasciitis of right foot; Translations: [Plantar fascial fibromatosis] Onset: 05-25-2024 05-25-2024 Episodic Other nervous system disorders (14 sources) Difficulty walking; Translations: [Difficulty in walking, not elsewhere classified] Onset: 02-24-2023 Resolved: 02-24-2023 02-24-2023 Chronic Other non-traumatic joint disorders (4 sources) Pain in right ankle and joints of right foot; Translations: [PAIN IN RIGHT ANKLE] Onset: 10-14-2022 Episodic Other nutritional; endocrine; and metabolic disorders (11 sources) Obesity caused by energy imbalance; Translations: [Morbid (severe) obesity due to excess calories] Onset: 08-17-2024 Resolved: 08-17-2024 08-17-2024 Chronic Other skin disorders (14 sources) Eruption; Translations: [Rash and other nonspecific skin eruption] Onset: 01-20-2024 01-20-2024 Episodic Residual codes; unclassified (18 sources) Bilateral lower limb edema; Translations: [Localized edema] Onset: 09-08-2023 09-08-2023 Episodic Results Test Name Value Interpretation Reference Range Facility [facility] MICROALB CREAT RATIO RAN DOMon 09-10-2024 CREATININE URINE RANDOM 245.77 mg/dL 20.00 - 300.00 mg/dL [facility] MICROALBUMIN URINE RANDOM <1.3 NINF - 30.0 mg/dL [facility] Urine Cultureon 09-10-2024 Bacteria identified Cx Nom (U) <9,000 colonies/ml mixed bacterial skin contaminants 2 Days PERFORMED BY: [address] [id number] [place] [address] PATHOLOGIST DIRECT SALES PROFESSIONAL JOLANTA BOSCH M.D. Normal The Replaced By [facility] Comment on above: Performed By: #### C UU #### [facility] [address] PROF CHEM 8 (BAS METB)on Anion gap [Moles/Vol] 6.5 mmol/L Normal [facility] Comment on above: Performed By: #### B MP #### [facility] [address] [address] [address] Hudson Guerrero Calcium [Mass/Vol] 9.3 mg/dL Normal 8.5-10.1 [facility] Comment on above: Performed By: #### B MP #### [facility] [address] [address] [address] Hudson Guerrero Chloride [Moles/Vol] 102 mmol/L Normal 98-107 [facility] Comment on above: Performed By: #### B MP #### [facility] [address] [address] [address] Hudson Guerrero CO2 [Moles/Vol] 32.5 mmol/L Critically high 21.0-32.0 [facility] Comment on above: Performed By: #### B MP #### [facility] [address] [address] [address] Hudson Guerrero Creatinine [Mass/Vol] 0.64 mg/dL Normal 0.55-1.02 [facility] Comment on above: Performed By: #### B MP #### [facility] [address] [address] [address] Hudson Guerrero EGFR-AF BERMUDIAN >60 Normal >=60 [facility] Comment on above: Performed By: #### B MP #### [facility] [address] [address] [address] Hudson Guerrero EGFR-NON AF BERMUDIAN >60 Normal >=60 [facility] Comment on above: Performed By: #### B MP #### [facility] [address] [address] [address] Hudson Guerrero Glucose [Mass/Vol] 100 mg/dL Normal 74-106 [facility] Comment on above: Performed By: #### B MP #### [facility] [address] [place], [place] [address] Dr. Hudson Guerrero Potassium [Moles/Vol] 4.0 mmol/L Normal 3.5-5.1 [facility] Comment on above: Performed By: #### B MP #### [facility] [address] [place], [place] [address] Dr. Hudson Guerrero Sodium [Moles/Vol] 137 mmol/L Normal 136-145 [facility] Comment on above: Performed By: #### B MP #### [facility] [address] [place], [place] [address] Dr. Hudson Guerrero Urea nitrogen [Mass/Vol] 18.0 mg/dL Normal 7.0-18.0 [facility] Comment on above: Performed By: #### B MP #### [facility] [address] [address] [address] Hudson Guerrero Urea nitrogen/Creatinine [Mass ratio] 28.1 mg/mg Normal [facility] Comment on above: Performed By: #### B MP #### [facility] [address] [address] [address] Hudson Guerrero MG MAMM SCREEN 3D ISABELLA CADon 10-28-2022 MG MAMM SCREEN 3D ISABELLA CAD Patient: WAYNE LOZADA Exam Date: 10/28/2022 : 1965 Gender:F Ordering : GLENNY ANTUNEZ ART CONSULTANT Admission #: [id number] Family : DR KLAUDIA BARAKAT Order #: [id number] CLICK HERE TO VIEW EXAM RADIOLOGY REPORT [...] myeloma cancer at age 74. LOCATION: [facility] BREAST COMPOSITION: Heterogeneously dense,which may [...] Dangelo MD on 10/29/2022 at 06:14 Normal [facility] MRI ANKLE RT WO CONon 2022 MRI ANKLE RT WO CON EXAM: MRI ANKLE RT WO CON HISTORY: Ankle pain COMPARISON: Ankle x-rays [...] by: MEGAN ZAMBRANO Date: 2022-10-26 17:41 Normal [facility] GLYCOHEMOGLOBIN A1Con 2022 ADA RECOMMENDATION SEE BELOW Normal [facility] Comment on above: Result Comment: ADA RECOMMENDED LIMIT 4.0 - 6.0 ADA THERAPEUTIC TARGET < 7.0 ACTION SUGGESTED > 7.0 Performed By: #### A 1C ####[facility] [address] [address]Dr[address] Hudson Guerrero Glucose [Mass/Vol] 117 mg/dL Normal [facility] Comment on above: Performed By: #### A 1C ####[facility] [address] [address]Dr[address] Hudson Guerrero HbA1c (Bld) [Mass fraction] 5.7 % Normal 4.5-6.2 [facility] Comment on above: Performed By: #### A 1C ####[facility] [address] [address]Dr[address] Hudson Guerrero CBC AUTO DIFFon 06-28-2022 BASO # 0.0 103/ul Normal 0.0-0.1 [facility] Comment on above: Performed By: #### C BC #### [facility] [address] [place] [address] Dr. Hudson Guerrero Basophils/100 WBC (Bld) 0.4 % Normal 0.2-2.0 [facility] Comment on above: Performed By: #### C BC #### [facility] [address] [place] [address] Dr. Hudson Guerrero EO # 0.2 103/ul Normal 0.0-0.7 [facility] Comment on above: Performed By: #### C BC #### [facility] [address] [place] [address] Dr. Hudson Guerrero Eosinophils/100 WBC (Bld) 2.6 % Normal 0.9-7.0 [facility] Comment on above: Performed By: #### C BC #### [facility] [address] [place] [address] Dr. Hudson Guerrero Erythrocyte distribution width (RBC) [Ratio] 12.5 % Normal 11.0-15.0 [facility] Comment on above: Performed By: #### C BC #### [facility] [address] [place] [address] Dr. Hudson Guerrero Hematocrit (Bld) [Volume fraction] 36.6 % Normal 36.0-48.0 [facility] Comment on above: Performed By: #### C BC #### [facility] [address] [place] [address] Dr. Hudson Guerrero Hemoglobin (Bld) [Mass/Vol] 12.2 g/dL Normal 12.0-16.0 [facility] Comment on above: Performed By: #### C BC #### [facility] [address] [place] [address] Dr. Hudson Guerrero IG # 0.04 10e3/ul Critically high 0.00-0.03 [facility] Comment on above: Performed By: #### C BC #### [facility] [address] [place] [address] Dr. Hudson Guerrero IG % 0.5 % Normal 0.0-0.5 [facility] Comment on above: Performed By: #### C BC #### [facility] [address] [place] [address] Dr. Hudson Guerrero LYMPH # 1.5 103/ul Normal 1.2-3.8 [facility] Comment on above: Performed By: #### C BC #### [facility] [address] [place] [address] Dr. Hudson Guerrero Lymphocytes/100 WBC (Bld) 18.8 % Critically low 20.5-60.0 [facility] Comment on above: Performed By: #### C BC #### [facility] [address] [place] [address] Dr. Hudson Guerrero MANUAL DIFF REQ NO Normal [facility] Comment on above: Performed By: #### C BC #### [facility] [address] [place] [address] Dr. Hudson Guerrero MCH (RBC) [Entitic mass] 31.8 pg Normal 26.7-34.0 [facility] Comment on above: Performed By: #### C BC #### [facility] [address] [place] [address] Dr. Hudson Guerrero MCHC (RBC) [Mass/Vol] 33.3 g/dL Normal 29.9-35.2 [facility] Comment on above: Performed By: #### C BC #### [facility] [address] [place] [address] Dr. Hudson Guerrero MCV (RBC) [Entitic vol] 95.3 fL Normal 81.0-99.0 [facility] Comment on above: Performed By: #### C BC #### [facility] [address] [place] [address] Dr. Hudson Guerrero MONO # 0.5 103/ul Normal 0.3-0.8 [facility] Comment on above: Performed By: #### C BC #### [facility] [address] [place] [address] Dr. Hudson Guerrero Monocytes/100 WBC (Bld) 6.3 % Normal 1.7-12.0 [facility] Comment on above: Performed By: #### C BC #### [facility] [address] [place] [address] Dr. Hudson Guerrero NEUT # 5.6 103/ul Normal 1.4-6.5 [facility] Comment on above: Performed By: #### C BC #### [facility] [address] [place] [address] Dr. Hudson Guerrero Neutrophils/100 WBC (Bld) 71.4 % Normal 43.0-75.0 [facility] Comment on above: Performed By: #### C BC #### [facility] [address] [place] [address] Dr. Hudson Guerreor Platelet mean volume (Bld) [Entitic vol] 8.9 fL Critically low 9.5-13.5 [facility] Comment on above: Performed By: #### C BC #### [facility] [address] [place] [address] Dr. Hudson Guerrero PLT 292 103/ul Normal 150-450 [facility] Comment on above: Performed By: #### C BC #### [facility] [address] [place] [address] Dr. Hudson Guerrero RBC 3.84 106/ul Critically low 4.20-5.[address] [facility] Comment on above: Performed By: #### C BC #### [facility] [address] [address] [address] Hudson Guerrero WBC 7.8 103/ul Normal 4.0-11.0 [facility] Comment on above: Performed By: #### C BC #### [facility] [address] [address] [address] Hudson Guerrero FREE T4on 06-28-2022 Free T4 [Mass/Vol] 0.91 ng/dL Normal 0.76-1.46 [facility] Comment on above: Performed By: #### F T4 ####[facility] [address] [address]Dr. Hudson Guerrero GLYCOHEMOGLOBIN A1Con 2021 ADA RECOMMENDATION SEE BELOW Normal [facility] Comment on above: Result Comment: ADA RECOMMENDED LIMIT 4.0 - 6.0 ADA THERAPEUTIC TARGET < 7.0 ACTION SUGGESTED > 7.0 Performed By: #### A 1C #### [facility] [address] [address] [address] Hudson Guerrero Glucose [Mass/Vol] 134 mg/dL Normal [facility] Comment on above: Performed By: #### A 1C #### [facility] [address] [address] [address] Hudson Guerrero HbA1c (Bld) [Mass fraction] 6.3 % Critically high 4.5-6.2 [facility] Comment on above: Performed By: #### A 1C #### [facility] [address] [address] [address] Hudson Guerrero LIPID PROFILEon 06-28-2022 CHOL-HDL RATIO NORM SEE BELOW Normal [facility] Comment on above: Result Comment: 3.3 - 4.4 LOW RISK 4.4 - 7.1 AVERAGE RISK 7.1 - 11.0 MODERATE RISK >11.0 HIGH RISK Performed By: #### C MP, TSH, LIPID ####[facility] [address] [address]Dr. Hudson Guerrero Cholesterol [Mass/Vol] 159 mg/dL Normal <=200 [facility] Comment on above: Performed By: #### C MP, TSH, LIPID ####[facility] [address] [id number] Hudson Guerrero Cholesterol in HDL [Mass/Vol] 45 mg/dL Normal 40-60 [facility] Comment on above: Performed By: #### C MP, TSH, LIPID ####[facility] [address] [id number][address] Hudson Guerrero Cholesterol in LDL [Mass/Vol] 82.6 mg/dL Normal [facility] Comment on above: Performed By: #### C MP, TSH, LIPID ####[facility] [address] [id number][address] Hudson Cesar Cholesterol.total/Ch olesterol in HDL [Mass ratio] 3.5 {ratio} Normal [facility] Comment on above: Performed By: #### C MP, TSH, LIPID ####[facility] [address] [address]Dr. Vikkichristina Guerrero HDL NORMAL > or = 60 mg/dl - LOW CARDIOVASCULAR RISK <40 mg/dl - HIGH CARDIOVASCULAR RISK Normal [facility] Comment on above: Performed By: #### C MP, TSH, LIPID ####[facility] [address] [id number]. Hudson Guerrero LDL CALC NORMAL SEE BELOW Normal [facility] Comment on above: Result Comment: <100 mg/dl OPTIMAL 100 - 129 mg/dl NEAR OR ABOVE OPTIMAL 130 - 159 mg/dl BORDERLINE HIGH 160 - 189 mg/dl HIGH >190 mg/dl VERY HIGH Performed By: #### C MP, TSH, LIPID ####[facility] [address] [id number]. Hudson Guerrero Triglyceride [Mass/Vol] 157 mg/dL Critically high <=150 [facility] Comment on above: Performed By: #### C MP, TSH, LIPID ####[facility] [address] [id number]. Hudson Guerrero VLDL CALC 31.4 mg/dL Normal [facility] Comment on above: Performed By: #### C MP, TSH, LIPID ####[facility] [address] [place] [address] [address]Dr. Hudson Guerrero PROF 14(COMP METB)on 022 Albumin [Mass/Vol] 3.7 g/dL Normal 3.4-5.0 [facility] Comment on above: Performed By: #### C MP, TSH, LIPID ####[facility] [address] [place] [address]Dr. Hudson Guerrero Albumin/Globulin [Mass ratio] 0.9 {ratio} Normal [facility] Comment on above: Performed By: #### C MP, TSH, LIPID ####[facility] [address] [place] [address] [address]Dr. Hudson Guerrero ALP [Catalytic activity/Vol] 88 U/L Normal 46-116 [facility] Comment on above: Performed By: #### C MP, TSH, LIPID ####[facility] [address] [place] [address]Dr. Hudson Guerrero ALT [Catalytic activity/Vol] 45 U/L Normal 14-59 [facility] Comment on above: Performed By: #### C MP, TSH, LIPID ####[facility] [address] [place] [address]Dr. Hudson Guerrero Anion gap [Moles/Vol] 14.1 mmol/L Normal [facility] Comment on above: Performed By: #### C MP, TSH, LIPID ####[facility] [address] [place] [address]Dr. Hudson Guerrero AST [Catalytic activity/Vol] 39 U/L Critically high 15-37 [facility] Comment on above: Performed By: #### C MP, TSH, LIPID ####[facility] [address] [place] [address]Dr. Hudson Guerrero Bilirubin [Mass/Vol] 0.5 mg/dL Normal 0.2-1.0 [facility] Comment on above: Performed By: #### C MP, TSH, LIPID ####[facility] [address] [place] [address]Dr. Hudson Guerrero Calcium [Mass/Vol] 9.3 mg/dL Normal 8.5-10.1 [facility] Comment on above: Performed By: #### C MP, TSH, LIPID ####[facility] [address] [place] [address]Dr. Hudson Guerrero Chloride [Moles/Vol] 106 mmol/L Normal 98-107 [facility] Comment on above: Performed By: #### C MP, TSH, LIPID ####[facility] [address] [place] [address]Dr. Hudson Guerrero CO2 [Moles/Vol] 28.5 mmol/L Normal 21.0-32.0 [facility] Comment on above: Performed By: #### C MP, TSH, LIPID ####[facility] [address] [place], [place] [address]Dr. Hudson Guerrero Creatinine [Mass/Vol] 0.55 mg/dL Normal 0.55-1.02 [facility] Comment on above: Performed By: #### C MP, TSH, LIPID ####[facility] [address] [place], [place] [address]Dr. Hudson Guerrero EGFR-AF BERMUDIAN >60 Normal >=60 [facility] Comment on above: Performed By: #### C MP, TSH, LIPID ####[facility] [address] [place], [place] [address]Dr. Vikkichristina Guerrero EGFR-NON AF BERMUDIAN >60 Normal >=60 [facility] Comment on above: Performed By: #### C MP, TSH, LIPID ####[facility] [address] [place] [address]Dr. Hudson Guerrero Globulin (S) [Mass/Vol] 4.0 g/dL Normal [facility] Comment on above: Performed By: #### C MP, TSH, LIPID ####[facility] [address] [place] [address]Dr. Hudson Guerrero Glucose [Mass/Vol] 115 mg/dL Critically high 74-106 [facility] Comment on above: Performed By: #### C MP, TSH, LIPID ####[facility] [address] [place] [address]Dr. Hudson Guerrero Potassium [Moles/Vol] 4.6 mmol/L Normal 3.5-5.1 [facility] Comment on above: Performed By: #### C MP, TSH, LIPID ####[facility] [address] [place] [address]Dr. Hudson Guerrero Protein [Mass/Vol] 7.7 g/dL Normal 6.4-8.2 [facility] Comment on above: Performed By: #### C MP, TSH, LIPID ####[facility] [address] [place] [address]Dr. Hudson Guerrero Sodium [Moles/Vol] 144 mmol/L Normal 136-145 [facility] Comment on above: Performed By: #### C MP, TSH, LIPID ####[facility] [address] [place] [address]Dr. Hudson Guerrero Urea nitrogen [Mass/Vol] 16.0 mg/dL Normal 7.0-18.0 [facility] Comment on above: Performed By: #### C MP, TSH, LIPID ####[facility] [address] [place] [address]Dr. Hudson Guerrero Urea nitrogen/Creatinine [Mass ratio] 29.1 mg/mg Normal [facility] Comment on above: Performed By: #### C MP, TSH, LIPID ####[facility] [address] [place] [address]Dr. Hudson Guerrero TSHon 06-28-2022 TSH 1.163 uIU/mL Normal 0.358-3.740 [facility] Comment on above: Performed By: #### C MP, TSH, LIPID ####[facility] [address] [place] [address]Dr. Hudson Guerrero UA RANDOM W/MICROSCOPICon BACTERIA SMALL Abnormal NONE SEEN [facility] Comment on above: Performed By: #### U AMIC #### [facility] [address] [address] [address] Hudson Guerrero Bilirubin Ql (U) Negative Normal NEGATIVE [facility] Comment on above: Performed By: #### U AMIC #### [facility] [address] [address] [address] Hudson Guerrero CAST NONE SEEN Normal NONE SEEN [facility] Comment on above: Performed By: #### U AMIC #### [facility] [address] [place] [address] Dr. Hudson Guerrero Clarity (U) CLEAR Normal CLEAR [facility] Comment on above: Performed By: #### U AMIC #### [facility] [address] [address] [address] Hudson Guerrero Color (U) LT. YELLOW Normal YELLOW [facility] Comment on above: Performed By: #### U AMIC #### [facility] [address] [place] [address] Dr. Hudson Guerrero Crystals LM Nom (Urine sed) NONE SEEN Normal NONE SEEN [facility] Comment on above: Performed By: #### U AMIC #### [facility] [address] [place] [address] Dr. Hudson Guerrero Epithelial cells LM Ql (Urine sed) FEW Abnormal NONE SEEN /RARE [facility] Comment on above: Performed By: #### U AMIC #### [facility] [address] [place] [address] Dr. Hudson Guerrero Glucose Ql (U) Negative Normal NEGATIVE [facility] Comment on above: Performed By: #### U AMIC #### [facility] [address] [place] [address] Dr. Hudson Guerrero Hemoglobin Ql (U) Negative Normal NEGATIVE [facility] Comment on above: Performed By: #### U AMIC #### [facility] [address] [place] [address] Dr. Hudson Guerrero Ketones Ql (U) Negative Normal NEGATIVE [facility] Comment on above: Performed By: #### U AMIC #### [facility] [address] [place] [address] Dr. Hudson Guerrero LEUKOCYTES SMALL Abnormal NEGATIVE [facility] Comment on above: Performed By: #### U AMIC #### [facility] [address] [place] [address] Dr. Hudson Guerrero MUCOUS NONE SEEN Normal NONE SEEN [facility] Comment on above: Performed By: #### U AMIC #### [facility] [address] [address] [address] Hudson Guerrero Nitrite Ql (U) Negative Normal NEGATIVE [facility] Comment on above: Performed By: #### U AMIC #### [facility] [address] [address] [address] Hudson Guerrero pH (U) 6.0 [pH] Normal 5-9 [facility] Comment on above: Performed By: #### U AMIC #### [facility] [address] [address] [address] Hudson Guerrero RBC NONE SEEN Abnormal 0-2 [facility] Comment on above: Performed By: #### U AMIC #### [facility] [address] [place] [address] Dr. Hudson Guerrero SPEC GRAVITY 1.025 Normal 1.005-<=1.[address] [facility] Comment on above: Performed By: #### U AMIC #### [facility] [address] [place] [address] Dr. Hudson Guerrero UA PROTEIN Negative Normal NEGATIVE/ TRACE [facility] Comment on above: Performed By: #### U AMIC #### [facility] [address] [place] [address] Dr. Hudson Guerrero Urobilinogen Qn (U) 0.2 {Andi'U}/dL Normal 0.2 - 1. 0 [facility] Comment on above: Performed By: #### U AMIC #### [facility] [address] [place] [address] Dr. Hudson Guerrero WBC 2-5 Abnormal NONE SEEN [facility] Comment on above: Performed By: #### U AMIC #### [facility] [address] [place] [address] Dr. Hudson Guerrero TSHon 01-24-2022 TSH 2.622 uIU/mL Normal 0.358-3.740 [facility] Comment on above: Performed By: #### T SH #### [facility] [address] [address] [address] Hudson Guerrero TSH RANGE SEE BELOW Normal [facility] Comment on above: Result Comment: <0.3 4 UIU/ml HYPERTHYROID 0.34-5.60 UIU/ml EUTHYROID >5.60 UIU/ml HYPOTHYROID Performed By: #### T SH #### [facility] [id number] Hudson Guerrero Vital Signs Date Time Vital Sign Value Performing Clinician Faci lity 08-22-2024 10:07-0500 Body height 170.2 cm [employer] Work Phone: [facility] [employer] 08-22-2024 10:07-0500 Body mass index (BMI) [Ratio] 43.85 kg/m2 [employer] Work Phone: [facility] [employer] 08-22-2024 10:07-0500 Body weight 127.01 kg [employer] Work Phone: [facility] [employer] 08-22-2024 10:07-0500 Diastolic blood pressure 78 mm[Hg] [employer] Work Phone: [facility] [employer] 08-22-2024 10:07-0500 Systolic blood pressure 134 mm[Hg] [employer] Work Phone: [facility] [employer] 08-17-2024 15:46-0500 Body height 170.2 cm Bijal Antunez [employer] Work Phone: [facility] 08-17-2024 15:46-0500 Body mass index (BMI) [Ratio] 43.89 kg/m2 Bijal Harmony [employer] Work Phone: [facility] 08-17-2024 15:46-0500 Body temperature 98.1 [degF] Bijal Harmony [employer] Work Phone: [facility] 08-17-2024 15:46-0500 Body weight 127.1 kg Bijal Harmony [employer] Work Phone: [facility] 08-17-2024 15:46-0500 Diastolic blood pressure 86 mm[Hg] Bijal Aichholz [employer] Work Phone: [facility] 08-17-2024 15:46-0500 Heart rate 97 /min Bijal Aichholz [employer] Work Phone: [facility] 08-17-2024 15:46-0500 Respiratory rate 18 /min Bijal Aichholz [employer] Work Phone: [facility] 08-17-2024 15:46-0500 SaO2% (BldA) [Mass fraction] 98 % Bijal Aichholz [employer] Work Phone: [facility] 08-17-2024 15:46-0500 Systolic blood pressure 132 mm[Hg] Bijal Aichholz [employer] Work Phone: [facility] 05-25-2024 16:07-0400 Body height 170.2 cm Bijal Aichholz [employer] Work Phone: [facility] 05-25-2024 16:07-0400 Body mass index (BMI) [Ratio] 45.11 kg/m2 Bijal Aichholz [employer] Work Phone: [facility] 05-25-2024 16:07-0400 Body temperature 97.81 [degF] Bijal Marlonhholz [employer] Work Phone: [facility] 05-25-2024 16:07-0400 Body weight 130.64 kg Bijal Aichholz [employer] Work Phone: [facility] 05-25-2024 16:07-0400 Diastolic blood pressure 80 mm[Hg] Bijal Aichholz [employer] Work Phone: [facility] 05-25-2024 16:07-0400 Heart rate 79 /min Bijal Aichholz [employer] Work Phone: [facility] 05-25-2024 16:07-0400 Respiratory rate 20 /min Bijal Aichholz [employer] Work Phone: [facility] 05-25-2024 16:07-0400 SaO2% (BldA) [Mass fraction] 97 % Bijal Antunez [employer] Work Phone: [facility] Healthcare 05-25-2024 16:07-0400 Systolic blood pressure 122 mm[Hg] Bijal Antunez [employer] Work Phone: [facility] Healthcare Encounters Encounter Date Encounter Type Care Provider Facility Start: 09-19-2024 End: 09-19-2024 Refill Bijal Antunez [employer] Work Phone: [facility] Comment on above: UTI symptoms (Primar y Dx) Start: 09-14-2024 End: 09-14-2024 Orders Only Bijal Antunez [employer] [facility] Comment on above: Elevated liver funct ion tests (Primary Dx) Start: 09-10-2024 End: 09-10-2024 Clinisync Result Encounter Bijal Antunez [employer] Work Phone: [facility] External Department Unsolicited Start: 09-10-2024 End: 09-10-2024 Clinisync Result Encounter Bijal Antunez [employer] Work Phone: [facility] External Department Unsolicited Start: 09-10-2024 End: 09-10-2024 ambulatory NON STAFF Facility:[facility] Start: 09-08-2024 End: 09-08-2024 Refill Bijal Antunez [employer] Work Phone: [facility] Comment on above: Class 3 severe obesi ty due to excess calories without serious comorbidity with body mass index (BMI) of 40.0 to 44.9 in adult (CMS/HCC) (Primary Dx) Start: 08-22-2024 End: 08-22-2024 Patient encounter status Klaudia Barakat DO Work Phone: [facility] Healthcare Start: 08-22-2024 End: 08-22-2024 Periodic preventive med est patient 40-64yrs Klaudia Barakat DO Work Phone: [facility] Comment on above: Encounter for gyneco logical examination without abnormal finding; Screening for malignant neoplasm of cervix; Breast cancer screening by mammogram; Hormone replacement therapy Start: 08-22-2024 End: 08-22-2024 ambulatory KLAUDIA BARAKAT Not Available Start: 08-17-2024 End: 08-17-2024 ambulatory BIJAL ANTUNEZ Not Available Start: 08-17-2024 End: 08-17-2024 Periodic preventive med est patient 40-64yrs Bijal Antunez [employer] Work Phone: [facility] Comment on above: Encounter for adult wellness [...] 08-17-2024 End: 08-17-2024 Bamboo flowsheet Bijal Antunez [employer] Work Phone: [facility] Start: 08-17-2024 End: 08-17-2024 Bamboo flowsheet Bijal Antunez [employer] Work Phone: [facility] CW FM Start: 08-17-2024 End: 08-17-2024 Patient encounter status Bijal Antunez [employer] Work Phone: [facility] Start: 08-10-2024 End: 08-10-2024 Refill Bijal Antunez [employer] Work Phone: [facility] FM Comment on above: Class 3 severe obesi ty due to excess calories without serious comorbidity with body mass index (BMI) of 45.0 to 49.9 in adult (CMS/HCC) (Primary Dx) Start: 08-07-2024 End: 08-08-2024 Refill Charan Quinn MD Work Phone: [facility] FM Comment on above: Other chronic pain ( Primary Dx) Start: 05-25-2024 End: 05-25-2024 Office outpatient visit 25 minutes Bijal Marinaz [employer] Work Phone: [facility] Comment on above: Plantar fasciitis, r ight (Primary Dx); Primary hypertension ([facility]); Class 3 severe obesity due to excess calories without serious comorbidity with body mass index (BMI) of 45.0 to 49.9 in adult ([facility]); Bilateral lower extremity edema Start: 05-25-2024 End: 05-25-2024 ambulatory BIJAL AICHHOLZ Not Available Start: 05-25-2024 End: 05-25-2024 Bamboo flowsheet Bijal Aickermitz [employer] Work Phone: [facility] Start: 05-25-2024 End: 05-25-2024 Bamboo flowsheet Bijal Aichholz [employer] Work Phone: [facility] Start: 03-22-2024 End: 03-22-2024 ambulatory BIJAL AICHHOLZ Not Available Start: 03-15-2024 End: 03-15-2024 ambulatory DESTINY H TIMMIS Not Available Start: 02-02-2024 End: 02-02-2024 ambulatory DESTINY H TIMMIS Not Available Start: 01-20-2024 End: 01-20-2024 ambulatory BIJAL AICHHOLZ Not Available Start: 01-17-2023 End: 01-18-2023 ambulatory ART CONSULTANT BIJAL AICHHOLZ Facility:H1 Start: 10-28-2022 End: 10-29-2022 ambulatory ART CONSULTANT BIJAL AICHHOLZ Facility:[facility]1 Start: 10-24-2022 End: 10-25-2022 ambulatory ART CONSULTANT BIJAL AICHHOLZ Facility:[facility]1 Start: 10-14-2022 End: 10-15-2022 ambulatory ART CONSULTANT BIJAL AICHHOLZ Facility:[facility]1 Start: 10-09-2022 End: 10-10-2022 ambulatory ART CONSULTANT BIJAL AICHHOLZ Facility:[facility]1 Start: 08-13-2022 End: 08-14-2022 ambulatory ART CONSULTANT BIJAL AICHHOLZ Facility:[facility]1 Start: 07-04-2022 ambulatory FAROOQMAYDA CONNELL . Facili ty:H1 Start: 06-28-2022 End: 06-29-2022 ambulatory GLENNY JENSEN HARMONY Facility:[facility]1 Start: 06-03-2022 End: 06-04-2022 ambulatory GLENNY JENSEN MARLONJulienKALYANITamar Facility:H1 Start: 04-04-2022 End: 04-05-2022 ambulatory FAROOQ CONNELL . Facility:[facility]1 Start: 03-25-2022 End: 03-26-2022 ambulatory GLENNY JENSEN HARMONY Facility:H1 Start: 01-28-2022 End: 01-29-2022 ambulatory GLENNY JENSEN HARMONY Facility:H1 Start: 01-24-2022 End: 01-25-2022 ambulatory GLENNY JENSEN MARLONJulienKAY Facility:H1 Procedures Date Procedure Procedure Detail Performing Clinician Start: 09-10-2024 [facility] JOCELINE KUMAR RANDOM Bijal Antunez [employer] Work Phone: Start: 12-02-2023 Mammography Bijal Christianne eddy [employer] Work Phone: Start: 01-12-2019 Colonoscopy Bijal Christianne eddy [employer] Work Phone: Plan of Treatment Date Care Activity Detail Author Start: 01-12-2029 Screening for malign ant neoplasm of colon [facility] Start: 12-01-2024 Screening for malign ant neoplasm of breast Mammogram [facility] Start: 11-16-2024 End: 11-16-2024 Patient encounter procedure 11/16/2024 3:40 PM EST [facility] [address] [place] [address] Bijal Antunez NP [address] [place] [address] [facility] Start: 09-28-2024 End: 09-14-2025 Hepatic function 2000 panel - Serum or Plasma Hepatic function panel Lab Routine Elevated liver function tests Expected: 09/28/2024 (Approximate), Expires: 09/14/2025 [facility] Work Phone: Comment on above: Expected: 09/28/2024 (Approximate), Expires: 09/14/2025 Start: 08-22-2024 End: 10-23-2025 DBT Breast - bilateral screening Bilateral screening mammogram with tomosynthesis Imaging Routine Breast cancer screening by mammogram Expected: 08/22/2024, Expires: 10/23/2025 [facility] Comment on above: Expected: 08/22/2024 , Expires: 10/23/2025 Start: 08-22-2024 End: 08-22-2024 Patient encounter procedure 08/22/2024 10:00 AM EST Office Visit [facility] [address] [place] [address] Klaudia Barakat DO [address] [place] [address] [facility] Start: 08-17-2024 End: 08-17-2024 Patient encounter procedure 08/17/2024 3:40 PM EST Office Visit [facility] [address] [place] [address] Bijal Antunez NP [address] [place] [address] [facility] Start: 08-17-2024 End: 08-17-2025 CBC W Auto Differential panel - Blood CBC and differential Lab Routine Encounter For Adult Wellness Visit Expected: 08/17/2024 (Approximate), Expires: 08/17/2025 [facility] Work Phone: Comment on above: Expected: 08/17/2024 (Approximate), Expires: 08/17/2025 Start: 08-17-2024 End: 08-17-2025 Comprehensive metabolic 2000 panel - Serum or Plasma Comprehensive metabolic panel Lab Routine Encounter for adult wellness visit Expected: 08/17/2024 (Approximate), Expires: 08/17/2025 [facility] Comment on above: Expected: 08/17/2024 (Approximate), Expires: 08/17/2025 Start: 08-17-2024 End: 08-17-2025 Lipid 1996 panel - Serum or Plasma Lipid panel Lab Routine Encounter for adult wellness visit Expected: 08/17/2024 (Approximate), Expires: 08/17/2025 [facility] Comment on above: Expected: 08/17/2024 (Approximate), [...] wellness visit Expected: 08/17/2024 (Approximate), Expires: 08/17/2025 [facility] Comment on above: Expected: 08/17/2024 (Approximate), Expires: 08/17/2025 Start: 08-17-2024 End: 08-17-2025 Urinalysis complete panel - Urine Urinalysis with reflex microscopic (clean catch) Lab Routine Encounter for adult wellness visit Expected: 08/17/2024 (Approximate), Expires: 08/17/2025 [facility] Comment on above: Expected: 08/17/2024 (Approximate), Expires: 08/17/2025 Start: 05-25-2024 End: 05-25-2024 Patient encounter procedure 05/25/2024 3:40 PM EDT Office Visit [facility] [address] [place] [address] Bijal Antunez NP [address] [place] [address] Arrived [facility] Comment on above: Arrived Start: 1965 Screening for malign ant neoplasm of colon [facility] IGP, APT HPV,RFX 16/18,45 IGP, APT HPV,RFX 16/18,45 Lab Routine Screening for malignant neoplasm of cervix Ordered: 08/22/2024 [facility] Work Phone: Comment on above: Ordered: 08/22/2024 Payers Date Payer Category Payer Self-pay 2018 [employer] [place] [employer] [id number] 2018 Unknown BCBS BCBS xxxxxx [id number] 2018-Present [phone] [address] [place] [address] [id number] 1965 Unknown [id number] 2.16.840.1.028047.3.57 9.2.593 1965 Unknown [id number] 2.16.840.1.887933.3.57 9.2.593 1965 Unknown [id number] 2.16.840.1.500053.3.57 9.2.593 1965 Unknown [id number] 2.16.840.1.329141.3.57 9.2.593 1965 Unknown [id number] 2.16.840.1.845937.3.57 9.2.593 1965 Unknown [id number] 2.16.840.1.889540.3.57 9.2.593 1965 Unknown [id number] 2.16840.1.689321.3.57 9.2.593 1965 Unknown [id number] 2.16840.1.466077.3.57 9.2.593 1965 Unknown [id number] 2.16840.1.925267.3.57 9.2.593 1965 Unknown [id number] 2.840.1.933973.3.57 9.2.593 1965 Unknown [id number] 2.840.1.373645.3.57 9.2.593 1965 Unknown [id number] 2.840.1.942299.3.57 9.2.593 1965 Unknown [id number] 2.840.1.596140.3.57 9.2.593 1965 Unknown [id number] 2.16840.1.638990.3.57 9.2.1259 1965 Unknown [id number] 2.16840.1.720981.3.57 9.2.1259 1965 Unknown [id number] 2.16840.1.645306.3.57 9.2.1259 1965 Unknown [id number] 2.16840.1.777784.3.57 9.2.1259 1965 Unknown [id number] 2.16.840.1.781246.3.57 9.2.1259 1965 Unknown [id number] 2.16840.1.797406.3.57 9.2.1259 1965 Unknown [id number] 2.16.840.1.744571.3.57 9.2.1259 1959 Unknown [id number] Unknown [id number] 2.16.840.1.900827.3.57 9.2.531 Social History Date Type Detail Facility Start: 08-17-2023 End: 08-19-2024 Tobacco smoking status IAIS Ex-smoker [facility] are Start: 09-14-2000 End: 09-14-2015 History of tobacco use Current smoker [facility] Start: 09-14-2000 End: 09-14-2015 History of tobacco use Cigarette Smoker [facility] Start: 08-17-2023 End: 08-18-2023 Cigarettes smoked current (pack per day) - Reported 1 [facility] Start: 08-17-2023 End: 08-19-2024 Tobacco use and exposure Smokeless tobacco non-user [facility] Start: 05-25-2024 End: 08-22-2024 Alcoholic beverage intake Ex-drinker (finding) [facility] re Start: 08-18-2023 End: 08-22-2024 Humiliation, Afraid, [...] got money to buy more. Never true [facility] Start: 08-15-2023 Alcohol Comment Caffeine intak e: 1 cup of coffee daily , Soda 1 per day [facility] Start: 1965 Sex assigned at Not on file [facility] Clinical Notes 01-28-2022 to 09-14-2024 Telephone Encounter - Bijal Antunez NP - 09/14/2024 7:51 PM ESTTelephone Encounter - Biajl Antunez NP - 09/14/2024 7:51 PM Elif Christie MA - 08/22/2024 10:00 AM ESTPatient Instructions Note Date & Type Note Facility 09-14-2024 Telephone encounter Note Please tell pt overall labs: Thyroid is ok, kidney function and e lytes are good as well. Her cholesterol numbers are elevated: TC 270, Trigs 299 , good chol 52 and her bad chol is 159-she is prescribed atrovastatin 40mg daily, has she been taking this every day and no missed doses??? Also her liver tests are sl elevated as well: AST is 60 (should be less than 37) and ALT is 134 (should be less than 59). The remainder of her liver function testing is normal. I would like to repeat the liver function testing in 2 weeks to see if still elevated LA [facility] 09-14-2024 Miscellaneous Notes Please tell pt overall labs: Thyroid is ok, kidney function and e lytes are good as well. Her cholesterol numbers are elevated: TC 270, Trigs 299 , good chol 52 and her bad chol is 159-she is prescribed atrovastatin 40mg daily, has she been taking this every day and no missed doses??? Also her liver tests are sl elevated as well: AST is 60 (should be less than 37) and ALT is 134 (should be less than 59). The remainder of her liver function testing is normal. I would like to repeat the liver function testing in 2 weeks to see if still elevated LA documented in this encounter [facility] 08-22-2024 History of Presen t illness Narrative Images from the original note were not included. Klaudia Barakat, Obstetrics and Gynecology [facility] 1965 08/22/24 [id number] Yearly Wellness Exam Chief Complaint Patient presents with Gynecologic Exam LMP: STAH BSO 2017 HRT: Estradiol 2 MG - satisfied. Last pap 08-17-23 neg. Mammograms ordered by PCP at [facility]. Denies breast, urinary, or bowel [...] humerus. Recent exacerbation of pain, saw Dr oWods in past. Menopausal vaginal dryness Discussed options [...] costovertebral angle tenderness, no obvious scoliosis/kyphosis. FEMALE GENITOURINARY:Weeder in room, good hormone, normal vaginal mucosa, [...] as scribe for Dr. Klaudia Barakat. Signature aLuren Christie MA Date 08/22/24 . Time 10:22 AM . The documentation recorded by the scribe accurately reflects the service(s) I personally performed and the decisions I made. Signature Lizzette Barakat,D.O. Date 08/22/24 Time 5:00PM. documented in this encounter [facility] 08-17-2024 History of Presen t illness Narrative Associated Problem(s): Acute non-recurrent maxillary [...] There is no history of kidney disease, CAD/FL or PVD. Sinusitis The current episode started [...] Past Medical History: Diagnosis Date Acquired hypothyroidism ([facility]) Allergic rhinitis Anemia iron def,. Asymptomatic microscopic [...] (severe) obesity due to excess calories (CMS/HCC) Discussed with patient their BMI (actual, verses recommended). We have also discussed lifestyle modifications: attempts to perform physical activity as chronic conditions allow, also to monitor dietary intake: increasing protein/fruits/veggies and lowering carb intake (unless contraindicated). Limit sodas, juices, and sugary drinks. Currently taking Wegovy has been on this : Total weight loss: Body mass index (BMI) 45.0-49.9, adult ([facility]) Encounter for adult wellness visit - Primary [...] tablet Other Visit Diagnoses Essential (primary) hypertension (CMS/HCC) Relevant Medications lisinopril 20 MG tablet hydroCHLOROthiazide (HYDRODiuril) 25 MG tablet Pure hyperglyceridemia (CMS/HCC) Relevant Medications atorvastatin (Lipitor) 40 MG tablet Associated Problem(s): Encounter for adult wellness visit Reviewed Ht/Wt/BMI Recommend eye exam yearly Recommend dental exams twice a year Balance work/leisure activities Exercises is recommended most days of the week (appropriate as chronic conditions allow) Follow up yearly and prn Associated Problem(s): Class 3 severe obesity without serious comorbidity in adult ([facility]) Discussed with patient their BMI (actual, verses [...] hydrochlorothiazide and lisinopril documented in this encounter [facility] 08-17-2024 Instructions Bijal Antunez NP - 08/17/2024 3:40 PM EST If not better after atb for sinuses contact office, may use nasal saline irrigation documented in this encounter [facility] 05-25-2024 History of Presen t illness Narrative Associated Problem(s): Plantar fasciitis, right [...] swelling is worse Associated Problem(s): Primary hypertension (CMS/[facility]) Stable today no changes Pain in the [...] misc 1 Units, Does not apply, Daily, [employer] Venturest UltraSheer 20-30 mmHg Large - knee high [...] History: Procedure Laterality Date CARPAL TUNNEL RELEASE 1993 SECTION, LOW TRANSVERSE 1984 1985 1988 COLONOSCOPY [...] on PF exerxcises documented in this encounter [facility] 10-14-2022 Note PROCEDURE: XR ANKLE RT [...] authenticated by: MEGAN DANGELO Date: 2022-10-14 11:36 [facility] 10-14-2022 Note PROCEDURE: XR ANKLE RT MIN [...] authenticated by: MEGAN DANGELO Date: 2022-10-14 11:36 [facility] 08-14-2022 Note PROCEDURE: XR FOOT L T [...] by: JOHN MCDONOUGH Date: 2022-08-13 23:22 [facility] 06-03-2022 Note PROCEDURE: XR FOOT L T [...] by: JOHN MCDONOUGH Date: 2022-06-03 16:04 [facility] 03-25-2022 Note PROCEDURE: XR FOOT L T [...] by: MEGAN DANGELO Date: 2022-03-25 19:35 [facility] 01-28-2022 Note PROCEDURE: XR FOOT L T [...] change in alignment. Electronically authenticated by: JOHN CMDONOUGH Date: 2022-01-28 14:19 [facility] Evaluation note Diagnosis Primary hypertension (CMS/HCC)- Primary [...] adult (CMS/HCC)- Primary documented in this encounter [facility] HealthcareEvaluation note* Diagnosis Primary hypertension ([facility]/HCC)- Primary Unspecified essential hypertension Class 3 severe obesity due to excess calories without serious comorbidity with body mass index (BMI) of 45.0 to 49.9 in adult ([facility]) Acquired hypothyroidism ([facility]/HCC) Unspecified hypothyroidism Rash Rash and other nonspecific skin eruption Primary hypertension ([facility]/HCC)- Primary Unspecified essential hypertension Bilateral lower extremity edema Class 3 severe obesity due to excess calories without serious comorbidity with body mass index (BMI) of 45.0 to 49.9 in adult ([facility]) Plantar fasciitis, right- Primary Primary hypertension ([facility]) Unspecified essential hypertension Class 3 severe obesity due to excess calories without serious comorbidity with body mass index (BMI) of 45.0 to 49.9 in adult ([facility]) Bilateral lower extremity edema Encounter for adult wellness visit- Primary Morbid (severe) obesity due to excess calories ([facility]) Body mass index (BMI) 45.0-49.9, adult ([facility]) Primary hypertension ([facility]) Unspecified essential hypertension Bilateral lower extremity edema Class 3 severe obesity due to excess calories without serious comorbidity with body mass index (BMI) of 45.0 to 49.9 in adult ([facility]) Essential (primary) hypertension ([facility]) Unspecified essential hypertension Pure hyperglyceridemia ([facility]) Pure hyperglyceridemia Acute non-recurrent maxillary sinusitis documented in this encounter [facility] HealthcareEvaluation note* Diagnosis Primary hypertension ([facility]/HCC)- Primary Unspecified essential hypertension Class 3 severe obesity due to excess calories without serious comorbidity with body mass index (BMI) of 45.0 to 49.9 in adult ([facility]) Acquired hypothyroidism ([facility]) Unspecified hypothyroidism Rash Rash and other nonspecific skin eruption Primary hypertension ([facility])- Primary Unspecified essential hypertension Bilateral lower extremity edema Class 3 severe obesity due to excess calories without serious comorbidity with body mass index (BMI) of 45.0 to 49.9 in adult ([facility]) Plantar fasciitis, right- Primary Primary hypertension ([facility]) Unspecified essential hypertension Class 3 severe obesity due to excess calories without serious comorbidity with body mass index (BMI) of 45.0 to 49.9 in adult ([facility]) Bilateral lower extremity edema Encounter for adult wellness visit- Primary Morbid (severe) obesity due to excess calories (CMS/HCC) Body mass index (BMI) 45.0-49.9, adult ([facility]) Primary hypertension (CMS/HCC) Unspecified essential hypertension Bilateral lower extremity edema Class 3 severe obesity due to excess calories without serious comorbidity with body mass index (BMI) of 45.0 to 49.9 in adult ([facility]/HCC) Essential (primary) hypertension (CMS/HCC) Unspecified essential hypertension Pure hyperglyceridemia ([facility]/HCC) Pure hyperglyceridemia Acute non-recurrent maxillary sinusitis Encounter for gynecological examination without abnormal finding Screening for malignant neoplasm of cervix Screening for malignant neoplasm of the cervix Breast cancer screening by mammogram Hormone replacement therapy documented in this encounter [facility] HealthcareEvaluation note* Diagnosis Plantar fasciitis, right- Primary Primary hypertension (CMS/HCC) Unspecified essential hypertension Class 3 severe obesity due to excess calories without serious comorbidity with body mass index (BMI) of 45.0 to 49.9 in adult ([facility]) Bilateral lower extremity edema documented in this encounter [facility] HealthcareEvaluation note* Diagnosis Primary hypertension ([facility]/HCC)- Primary Unspecified essential hypertension Class 3 severe obesity due to excess calories without serious comorbidity with body mass index (BMI) of 45.0 to 49.9 in adult ([facility]) Acquired hypothyroidism ([facility]) Unspecified hypothyroidism Rash Rash and other nonspecific skin eruption Primary hypertension (CMS/HCC)- Primary Unspecified essential hypertension Bilateral lower extremity edema Class 3 severe obesity due to excess calories without serious comorbidity with body mass index (BMI) of 45.0 to 49.9 in adult ([facility]) Plantar fasciitis, right- Primary Primary hypertension ([facility]/HCC) Unspecified essential hypertension Class 3 severe obesity due to excess calories without serious comorbidity with body mass index (BMI) of 45.0 to 49.9 in adult ([facility]) Bilateral lower extremity edema Encounter for adult wellness visit- Primary Morbid (severe) obesity due to excess calories (CMS/HCC) Body mass index (BMI) 45.0-49.9, adult ([facility]) Primary hypertension (CMS/HCC) Unspecified essential hypertension Bilateral lower extremity edema Class 3 severe obesity due to excess calories without serious comorbidity with body mass index (BMI) of 45.0 to 49.9 in adult ([facility]) Essential (primary) hypertension (CMS/HCC) Unspecified essential hypertension Pure hyperglyceridemia (CMS/HCC) Pure hyperglyceridemia Acute non-recurrent maxillary sinusitis Class 3 severe obesity due to excess calories without serious comorbidity with body mass index (BMI) of 40.0 to 44.9 in adult (CMS/HCC)- Primary documented in this encounter [facility]Evaluation note* Diagnosis Primary hypertension (CMS/HCC)- Primary [...] (BMI) of 45.0 to 49.9 in adult (CMS/[facility]) Bilateral lower extremity edema Encounter for adult wellness visit- Primary Morbid (severe) obesity due to excess calories (CMS/HCC) Body mass index (BMI) 45.0-49.9, adult ([facility]) Primary hypertension (CMS/HCC) Unspecified essential hypertension Bilateral lower extremity edema Class 3 severe obesity due to excess calories without serious comorbidity with body mass index (BMI) of 45.0 to 49.9 in adult (CMS/HCC) Essential (primary) hypertension (CMS/HCC) Unspecified essential hypertension Pure hyperglyceridemia (CMS/HCC) Pure hyperglyceridemia Acute non-recurrent maxillary sinusitis Elevated liver function tests- Primary Other abnormal blood chemistry documented in this encounter [facility] HealthcareEvaluation note* Diagnosis Primary hypertension (CMS/HCC)- Primary [...] (CMS/HCC) Body mass index (BMI) 45.0-49.9, adult (CMS/HCC) Primary hypertension (CMS/HCC) Unspecified essential hypertension Bilateral lower extremity edema Class 3 severe obesity due to excess calories without serious comorbidity with body mass index (BMI) of 45.0 to 49.9 in adult (CMS/HCC) Essential (primary) hypertension (CMS/HCC) Unspecified essential hypertension Pure hyperglyceridemia (CMS/HCC) Pure hyperglyceridemia Acute non-recurrent maxillary sinusitis UTI symptoms- Primary documented in this encounter [facility] Summary Purpose Family History No Family History Records FoundNo Family History Records FoundNo Family History Records Found Advance Directives No Advanced Directives Records FoundNo Advanced Directives Records FoundNo Advanced Directives Records Found Additional Source Comments INFORMATION SOURCE (unrecogn ized section and content) DATE CREATED AUTHOR 01/23/2023 [facility] DATE CREATED AUTHOR AUTHOR'S ORGANIZ ATION 08/25/2024 [facility] EPIC DATE CREATED AUTHOR AUTHOR'S ORGANIZ ATION 09/14/2024 [facility] Reason for Visit (unrecogniz ed section and content) Reason Onset Date Comments Med Refill 08/07/2024 Reason Comments Hypertension Reason Comments Gynecologic Exam LMP: STAH BSO 2017HR T: Estradiol 2 MG - satisfied. Last pap 08-17-23 neg.Mammograms ordered by PCP at [facility]. Denies breast, urinary, or bowel concerns. Menopause Questions how long t o be on Estradiol. Care Teams (unrecognized sec tion and content) Research Neuropsychologist Relationship Specialty Start Date End Date Charan Quinn MD [address] [place] [address] PCP - General Family Medicine 01/20/24 Bijal Antunez NP [address] [place] [address] PCP - [employer] 12/14/23 Bijal Antunez NP [address] [place] [address] Nurse Practitioner Family Medicine 01/20/24 Research Neuropsychologist Relationship Specialty Start Date End Date Charan Quinn MD [address] [place] [phone] PCP - General Family Medicine 01/20/24 Bijal Antunez NP [address] [place] [phone] PCP - [employer] 12/14/23 Bijal Antunez NP [address] [place] [address] Nurse Practitioner Family Medicine 01/20/24 Research Neuropsychologist Relationship Specialty Start Date End Date Charan Quinn MD [address] [place] [phone] PCP - General Family Medicine 01/20/24 Bijal Antunez NP [address] [place] [phone] PCP - [employer] 12/14/23 Bijal Antunez NP [address] [place] [address] Nurse Practitioner Family Medicine 01/20/24 Research Neuropsychologist Relationship Specialty Start Date End Date Charan Quinn MD [address] [place] [phone] PCP - General Family Medicine 01/20/24 Bijal Antunez NP [address] [place] [phone] PCP - [employer] 12/14/23 Bijal Antunez NP [address] [place] [address] Nurse Practitioner Family Medicine 01/20/24 Research Neuropsychologist Relationship Specialty Start Date End Date Charan Quinn MD [address] [place] [phone] PCP - General Family Medicine 01/20/24 Bijal Antunez NP [address] [place] [phone] PCP - [employer] 12/14/23 Bijal Antunez NP [address] [place] [address] Nurse Practitioner Family Medicine 01/20/24 Research Neuropsychologist Relationship Specialty Start Date End Date Charan Quinn MD [address] [place] [phone] PCP - General Family Medicine 01/20/24 Bijal Antunez NP [address] [place] [phone] PCP - [employer] 12/14/23 Bijal Antunez NP [address] [place] [address] Nurse Practitioner Family Medicine 01/20/24 Research Neuropsychologist Relationship Specialty Start Date End Date Charan Quinn MD [address] [place] [phone] PCP - General Family Medicine 01/20/24 Bijal Antunez NP [address] [place] [phone] PCP - [employer] 12/14/23 Bijal Antunez NP [address] [place] [address] Nurse Practitioner Family Medicine 01/20/24 Research Neuropsychologist Relationship Specialty Start Date End Date Charan Quinn MD [address] [place] [phone] PCP - General Family Medicine 01/20/24 Bijal Antunez NP [address] [place] [phone] PCP - [employer] 12/14/23 Bijal Antunez NP [address] [place] [address] Nurse Practitioner Family Medicine 01/20/24 Research Neuropsychologist Relationship Specialty Start Date End Date Charan Quinn MD [address] [place] [phone] PCP - General Family Medicine 01/20/24 Bijal Antunez NP [address] [place] [phone] PCP - [employer] 12/14/23 Bijal Antunez NP [address] [place] [address] Nurse Practitioner Family Medicine 01/20/24 Research Neuropsychologist Relationship Specialty Start Date End Date Charan Quinn MD [address] [place] [phone] PCP - General Family Medicine 01/20/24 Bijal Antunez NP [address] [place] [phone] PCP - [employer] 12/14/23 Bijal Antunez NP [address] [place] [address] Nurse Practitioner Family Medicine 01/20/24 Research Neuropsychologist Relationship Specialty Start Date End Date Charan Quinn MD [address] [place] [phone] PCP - General Family Medicine 01/20/24 Bijal Antunez NP [address] [place] [phone] PCP - [employer] 12/14/23 Bijal Antunez NP [address] [place] [address] Nurse Practitioner Family Medicine 01/20/24 FOR RECORDS PERTAINING TO PATIENTS WHO [...] BE BASED ON THE PRIMARY CLINICAL RECORDS. [facility] [employer] provides no warranty or guarantee of the accuracy or completeness of information in this document.
[2024-09-26 18:10] LABS: Alanine Aminotransferase 22 U/L (14-59); Albumin Globulin Ratio 0.9; Albumin Level 3.3 g/dL (3.4-5.0); Alkaline Phosphatase 86 U/L (46-116); Aspartate Amino Transferase 14 U/L (15-37); Bilirubin Direct 0.1 mg/dL (0.0-0.2); Bilirubin Total 0.4 mg/dL (0.2-1.0); Globulin 3.7 g/dL
== END 2024-09-26 16:20 | disposition home or self-care (01) ==
LOC: LAB 16:20
PROVIDERS: PCP Nurse Practitioner; Visit Provider Nurse Practitioner
DX: R79.89 Other specified abnormal findings of blood chemistry (principal)
CPT/HCPCS: 36415; 80076

== ENCOUNTER 2024-11-19 08:31 | Outpatient (OUT) | payer BC, SELFPAY ==
--- NOTE | 2024-11-19 08:32 | US_ITS ---
The [address] [address] Patient Name: WAYNE PIERRE MRN: [id number] date: 1965 Sex: F Assigned Patient Location: US Current Patient Location: US Accession/Order Number: [id number] Exam Date: 11/19/2024 10:15 Report Date: 11/19/2024 10:19 At the request of: MIKEY CEDEÑO NP Procedure: US right upper quadrant Gallbladder ultrasound HISTORY: Postprandial right upper quadrant pain for 2 months COMPARISON: None Negative ultrasound Paniagua's sign reported. COMMON BILE DUCT: Normal caliber. No intraluminal abnormality. LIVER CONTOUR: Normal. LIVER PARENCHYMA: Hepatic steatosis HEPATIC LESION: None INTRAHEPATIC BILIARY DUCTAL DILATATION No ductal dilatation identified. GALLSTONES: Contracted gallbladder containing multiple echogenic foci likely representing stones. May represent gallbladder polyps. GALLBLADDER SLUDGE: No gallbladder sludge. GALLBLADDER WALL: Normal thickness PERICHOLECYSTIC FLUID: None Pancreas: Unremarkable PORTAL VEIN: Normal blood flow. Liver size: Normal No RIGHT hydronephrosis identified. US/US right upper quadrant IMPRESSION: Hepatic steatosis. Contracted gallbladder with multiple gallstones. Tiny gallbladder polyps may be present. Impression dictated by: Pipo Higgins M.D.11/19/2024 10:19 AM Dictation Location: [place] [address] Electronically authenticated by: [id number] Y Date: 11/19/2024 10:19
--- OUTSIDE RECORDS SUMMARY | 2024-11-19 08:33 | XMS_ITS | CCD ---
Author Organization [facility] Care Team Providers Care Associate School Psychologist Name Role Phone AICHHOLZ, FINANCIAL ASSISTANCE SPECIALIST BIJAL Attending Unavailable AICHHOLZ, FINANCIAL ASSISTANCE SPECIALIST BIJAL Admitting Unavailable AICHHOLZ, FINANCIAL ASSISTANCE SPECIALIST BIJAL Primary Care Unavailable AICHHOLZ, FINANCIAL ASSISTANCE SPECIALIST BIJAL Consulting Unavailable AICHHOLZ, FINANCIAL ASSISTANCE SPECIALIST BIJAL Primary Care Unavailable RAF NGUYEN Attending Unavailable PATRICK, RAF Admitting Unavailable John Mcdonough Consulting Unavailable RAF NGUYEN Consulting Unavailable AICHHOLZ, FINANCIAL ASSISTANCE SPECIALIST BIJAL Primary Care Unavailable RAF NGUYEN Attending Unavailable PATRICK RAF Admitting Unavailable [place], DR MEGAN Glaser Consulting Unavailable PATRICK, RAF Consulting Unavailable AICHHOLZ, FINANCIAL ASSISTANCE SPECIALIST BIJAL Primary Care Unavailable TIMMIS, DR DIXON Attending Unavailable TIMMIS, DR DIXON Admitting Unavailable TIMMIS, DR DIXON Consulting Unavailable AICHHOLZ, FINANCIAL ASSISTANCE SPECIALIST BIJAL Primary Care Unavailable PATRICK RAF Attending Unavailable John Mcdonough Consulting Unavailable PATRICK, RAF Admitting Unavailable RAF NGUYEN Consulting Unavailable AICHHOLZ, FINANCIAL ASSISTANCE SPECIALIST BIJAL Consulting Unavailable AICHHOLZ, FINANCIAL ASSISTANCE SPECIALIST BIJAL Attending Unavailable AICHHOLZ, FINANCIAL ASSISTANCE SPECIALIST BIJAL Admitting Unavailable AICHHOLZ, FINANCIAL ASSISTANCE SPECIALIST BIJAL Primary Care Unavailable AICHHOLZ, FINANCIAL ASSISTANCE SPECIALIST BIJAL Primary Care Unavailable DEVEN RIVAS Admitting Unavailable DEVEN RIVAS Consulting Unavailable DEVEN RIVAS Attending Unavailable MEGAN ZAMBRANO Consulting Unavailable KO ., FAROOQ Admitting Unavailable AICHHOLZ, FINANCIAL ASSISTANCE SPECIALIST BIJAL Primary Care Unavailable KO ., FAROOQ Attending Unavailable KO ., FAROOQ Attending Unavailable KO ., FAROOQ Admitting Unavailable AICHHOLZ, FINANCIAL ASSISTANCE SPECIALIST BIJAL Primary Care Unavailable KO ., FAROOQ Consulting Unavailable AICHHOLZ, FINANCIAL ASSISTANCE SPECIALIST BIJAL Primary Care Unavailable DEVEN RIVAS Admitting Unavailable WEST, DR MEGAN Glaser Consulting Unavailable DEVEN RIVAS Attending Unavailable DEVEN RIVAS Consulting Unavailable AICHHOLZ, FINANCIAL ASSISTANCE SPECIALIST BIJAL Attending Unavailable AICHHOLZ, FINANCIAL ASSISTANCE SPECIALIST BIJAL Admitting Unavailable AICHHOLZ, FINANCIAL ASSISTANCE SPECIALIST BIJAL Primary Care Unavailable ANTOLIN, DR MEGAN Glaser Consulting Unavailable AICHHOLZ, GLENNY BIJAL Consulting Unavailable AICHHOLZ, FINANCIAL ASSISTANCE SPECIALIST BIJAL Attending Unavailable AICHHOLZ, FINANCIAL ASSISTANCE SPECIALIST BIJAL Admitting Unavailable AICHHOLZ, FINANCIAL ASSISTANCE SPECIALIST BIJAL Primary Care Unavailable AICHHOLZ, FINANCIAL ASSISTANCE SPECIALIST BIJAL Consulting Unavailable AICHHOLZ, FINANCIAL ASSISTANCE SPECIALIST BIJAL Primary Care Unavailable DEVEN RIVAS Attending Unavailable DEVEN RIVAS Admitting Unavailable John Mcdonough Consulting Unavailable DEVEN RIVAS Consulting Unavailable Charan Quinn MD Primary Care Provider Aichholz HAND MARKER, Bijal Unavailable Aichholz HAND MARKER, Bijal Unavailable NON STAFF Attending Unavailable NON STAFF Admitting Unavailable Unavailable Primary Care Provider UnavailSHERIF Romero Referring Unavailable AICHHOLZ, BIJAL Attending Unavailable AICHKAY, BIJAL Attending Unavailable DESTINY YANG Attending Unavailable DESTINY YANG Attending Unavailable MARLONHHOLZ, BIJAL Attending Unavailable AICHHOLZ, BIJAL Attending Unavailable AICHHOLZ, BIJAL Attending Unavailable KLAUDIA BARAKAT Attending Unavailable Medications Current Medications Medication Drug Class(es) Dates Sig (Normalized) Sig (Original) [id number] 200 actuat albuterol 0.09 mg/actuat metered dose inhaler (18 sources) beta2-Adrenergic Agonist Start: 11-09-2023 take 2 puff(s) by inhalation every four hours for wheezing albuterol HFA 90 mcg/act inhaler Indications: Wheezing Inhale 2 puffs every 4 (four) hours if needed for wheezing 18 g 2 11/09/2023 Active amoxicillin 500 mg oral capsule (2 sources) Penicillin-class Antibacterial Start: 09-19-2024 End: 09-26-2024 take [...] 08/27/2024 Active atorvastatin 40 mg oral tablet (19 sources) HMG-CoA Reductase Inhibitor Start: 04-25-2024 End: 11-15-2024 take 1 tablet by mouth at bedtime atorvastatin (Lipitor) 40 MG tablet Indications: Pure hyperglyceridemia (CMS/HCC) Take 1 tablet (40 mg) by mouth at bedtime 90 tablet 1 08/17/2024 Active cholecalciferol 0.025 mg oral tablet (18 sources) Vitamin D take 1 tablet by mouth once daily cholecalciferol (Vitamin D-3) 25 MCG tablet Take 1 tablet by mouth Daily Active take 3 tablets by mouth in the m orning cholecalciferol (Vitamin D-3) 25 MCG tablet Take 3 tablets by mouth in the morning. Active cyclobenzaprine hydrochloride 5 mg oral tablet (18 sources) Muscle Relaxant cyclobenzaprine (Flexeril) 5 MG tablet Take 1 tablet by mouth as needed at bedtime for muscle spasms Active Elastic Bandages & Supports (JOBST KNEE HIGH COMPRESSION SM) misc (18 sources) Elastic Bandages & Supports (JOBST KNEE HIGH COMPRESSION SM) misc 1 Units in the morning. Jobst UltraSheer 20-30 mmHg Large - knee high compression hose. On in AM off in PM. Active estradiol 2 mg oral tablet (19 sources) Estrogen Start: 08-19-20 24 End: 08-22-20 24 take 1 tablet by mouth once daily estradiol (Estrace) 2 MG tablet Indications: Hormone replacement therapy Take 1 tablet (2 mg) by mouth Daily 90 tablet 3 08/22/2024 Active Start: 07-05-2024 take 1 tablet by ralph once daily estradiol (Estrace) 2 MG tablet [...] Active ferrous sulfate 325 mg oral tablet (18 sources) take 1 tablet by ralph th at mealtime ferrous sulfate 325 (65 Fe) MG tablet Take 325 mg by mouth in the morning. Take with meals. Active ferrous sulfate 325 (65 Fe) MG tablet Take 325 mg by mouth every 12 (twelve) hours. Active fexofenadine hydrochloride 180 mg oral tablet (18 sources) Histamine-1 Receptor Antagonist take 1 tablet by mouth in the morning fexofenadine (Conchis) 180 MG tablet Take 180 mg by mouth in the morning. Active hydroCHLOROthiazide 25 mg oral tablet (19 sources) Thiazide Diuretic Start : 03-07 End: 11-15 take 1 tablet by mouth twice daily as needed hydroCHLOROthiazide (HYDRODiuril) 25 MG tablet Indications: Bilateral lower extremity edema , Essential (primary) hypertension (CMS/HCC) Take 1 tablet (25 mg) by mouth 2 (two) times a day as needed (swelling) 180 tablet 1 08/17/2024 Active ibuprofen 800 mg oral tablet (10 [...] Active levothyroxine sodium 0.15 mg oral tablet (18 sources) l-Thyroxine Start : 04-04 End: 04-04 take 1 tablet by mouth before mealtime levothyroxine (Synthroid) 150 MCG tablet Indications: Acquired hypothyroidism (CMS/HCC) Take 1 tablet (150 mcg) by mouth in the morning. Take before meals. 90 tablet 3 04/04/2024 04/04/2025 Active lisinopril 20 mg oral tablet (19 sources) Angiotensin Converting Enzyme Inhibitor Start : 02-17 End: 11-15 take 1 tablet by mouth once daily lisinopril 20 MG tablet Indications: Essential (primary) hypertension ([facility]) Take 1 tablet (20 mg) by mouth Daily 90 tablet 1 08/17/2024 Active nystatin [id number] unt/ml / triamcinolone acetonide 1 mg/ml topical cream (18 sources) Polyene Antifungal, Corticosteroid nystatin-triamcinolo ne (Mycolog II) cream Apply 1 application topically every 12 (twelve) hours. Active Semaglutide-Weight Management (Wegovy) 2.4 MG/0.75ML solution auto-injector (13 sources) Start : 08-17 End: 09-14 Semaglutide-Weight Management (Wegovy) 2.4 MG/0.75ML solution auto-injector Indications: Class 3 severe obesity due to excess calories without serious comorbidity with body mass index (BMI) of 45.0 to 49.9 in adult ([facility]) Inject 2.4 mg under the skin every 7 (seven) days for 28 days g 3 mL 3 08/17/2024 09/14/2024 Active Start: 08-10-2024 End: 08-17-2024 Semaglutide-Weight Managemen t (Wegovy) 2.4 MG/0.75ML solution auto-injector Indications: Class 3 severe obesity due to excess calories without serious comorbidity with body mass index (BMI) of 45.0 to 49.9 in adult ([facility]) Inject 2.4 mg under the skin every 7 (seven) days for 28 days g 3 mL 1 08/10/2024 08/17/2024 Discontinued (Reorder) Start: 08-10-2024 End: 09-07-2024 Semaglutide-Weight Managemen t (Wegovy) 2.4 MG/0.75ML solution auto-injector Indications: Class 3 severe obesity due to excess calories without serious comorbidity with body mass index (BMI) of 45.0 to 49.9 in adult ([facility]) Inject 2.4 mg under the skin every 7 (seven) days for 28 days g 3 mL 1 08/10/2024 09/07/2024 Active Start: 05-25-2024 End: 06-22-2024 Semaglutide-Weight Managemen t (Wegovy) 2.4 MG/0.75ML solution auto-injector Indications: Class 3 severe obesity due to excess calories without serious comorbidity with body mass index (BMI) of 45.0 to 49.9 in adult ([facility]) Inject 2.4 mg under the skin every 7 (seven) days for 28 days 3 mL 2 05/25/2024 06/22/2024 Active Tirzepatide-Weight Managemen t (Zepbound) 2.5 MG/0.5ML solution auto-injector (7 sources) Start: 09-08-2024 End: 10-06-2024 Tirzepatide-Weight Managemen t (Zepbound) 2.5 MG/0.5ML solution auto-injector Indications: Class 3 severe obesity due to excess calories without serious comorbidity with body mass index (BMI) of 40.0 to 44.9 in adult ([facility]) Inject 2.5 mg under the skin 1 [...] (BMI) of 45.0 to 49.9 in adult ([facility]) Inject 1.7 mg under the skin every 7 (seven) days for 28 days 3 mL 04/29/2024 05/25/2024 Discontinued (Therapy completed) Start: 04-29-2024 End: 05-27-2024 Semaglutide-Weight Managemen t (Wegovy) 1.7 MG/0.75ML solution auto-injector Indications: Class 3 severe obesity due to excess calories without serious comorbidity with body mass index (BMI) of 45.0 to 49.9 in adult ([facility]) Inject 1.7 mg under the skin every 7 (seven) days for 28 days 3 mL 04/29/2024 05/27/2024 Active Problems Active Problems Problem Classification Problem Date Documented Date Episodic/Chronic Abdominal pain (4 sources) Right upper quadrant pain; Translations: [Right upper quadrant pain] Onset: 11-15-2024 11-15-2024 Episodic Administrative/social admission (2 sources) Encounter for pre-employment examination; Translations: [Encounter for pre-employment examination] Onset: 11-08-2024 Episodic Disorders of lipid metabolism (6 sources) Hyperlipidemia, [...] Onset: 04-08-2022 Chronic Other nervous system disorders (16 sources) Chronic pain; Translations: [Other chronic pain] Onset: 08-08-2024 08-08-2024 Chronic Other nutritional; endocrine; and metabolic disorders (1 source) Obesity, unspecified; Translations: [OBESITY UNSPECIFIED] Onset: 04-08-2022 Chronic Other nutritional; endocrine; and metabolic disorders (20 sources) Severe obesity; Translations: [Class 3 severe obesity without serious comorbidity in adult] Onset: 08-20-2023 08-20-2023 Chronic Other nutritional; endocrine; and metabolic disorders (15 sources) Body mass index 40+ - severely obese; Translations: [Body mass index (BMI) 45.0-49.9, adult] Onset: 08-17-2024 08-17-2024 Chronic Other screening for suspected conditions (not mental disorders or infectious disease) (16 sources) Encounter for screening mammogram for malignant neoplasm of breast; Translations: [Cancer cervix screening status] Onset: 10-28-2022 Episodic Residual codes; unclassified (1 source) Family history of other malignant neoplasms of lymphoid, hematopoietic and related tissues; Translations: [FAM HX OTH MAL KEIKO LYMPH HEMATPOETC] Onset: 11-02-2022 Episodic Residual codes; unclassified (20 sources) Bilateral lower limb edema; Translations: [Localized edema] Onset: 09-08-2023 09-08-2023 Episodic Thyroid disorders (20 sources) Hypothyroidism, unspecified; Translations: [Acquired hypothyroidism] Onset: 01-24-2022 Chronic Past or Other Problems Problem Classification Problem Date Documented Da te Episodic/Chronic Diabetes mellitus without complication (5 sources) Prediabetes; Translations: [PREDIABETES] Onset: 07-02-2022 Episodic Genitourinary symptoms and ill-defined conditions (20 sources) Asymptomatic microscopic hematuria; Translations: [Asymptomatic microscopic hematuria] Onset: 08-18-2023 Resolved: 11-15-2024 08-18-2023 Episodic Headache; including migraine (18 sources) Headache; Translations: [Headache] Onset: 04-14-2024 Resolved: 04-14-2024 04-14-2024 Episodic Inflammatory diseases of female pelvic organs (18 sources) Chronic vulvovaginitis; Translations: [Subacute and chronic vaginitis] Onset: 02-24-2023 Resolved: 02-24-2023 02-24-2023 Episodic Other circulatory disease (18 sources) Pulmonary congestion ; Translations: [Other specified symptoms and signs involving the circulatory and respiratory systems] Onset: 04-14-2024 Resolved: 04-14-2024 04-14-2024 Episodic Other connective tissue disease (1 source) Pain in right foot; Translations: [PAIN IN RIGHT FOOT] Onset: 10-15-2022 Episodic Other connective tissue disease (4 sources) Pain in left foot; Translations: [PAIN IN LEFT FOOT] Onset: 08-13-2022 Episodic Other connective tissue disease (19 sources) Plantar fasciitis of right foot; Translations: [Plantar fascial fibromatosis] Onset: 05-25-2024 05-25-2024 Episodic Other nervous system disorders (18 sources) Difficulty walking; Translations: [Difficulty in walking, not elsewhere classified] Onset: 02-24-2023 Resolved: 02-24-2023 02-24-2023 Chronic Other non-traumatic joint disorders (4 sources) Pain in right ankle and joints of right foot; Translations: [PAIN IN RIGHT ANKLE] Onset: 10-14-2022 Episodic Other nutritional; endocrine; and metabolic disorders (15 sources) Obesity caused by energy imbalance; Translations: [Morbid (severe) obesity due to excess calories] Onset: 08-17-2024 Resolved: 08-17-2024 08-17-2024 Chronic Other skin disorders (18 sources) Eruption; Translations: [Rash and other nonspecific skin eruption] Onset: 01-20-2024 01-20-2024 Episodic Other upper respiratory infections (20 sources) Viral upper respiratory tract infection; Translations: [Acute upper respiratory infection, unspecified] Onset: 11-09-2023 Resolved: 11-15-2024 05-25-2024 Episodic Results Test Name Value Interpretation Reference Range Facility Measles (Rubeola) Imon 11-09 Measles (Rubeola) Im 19.03 Normal >1.09 [facility] Comment on above: Result Comment: Interpretation: IMMUNE Reference Range: <0.91 Not Immune 0.91-1.09 Equivocal >1.09 Immune Performed By: #### R UBI, FEDE, BRIJESH, VZI #### [address] [place] [address] [id number] Clinical Geneticist: Pedro Hand MD Mumps,Immun,Abon 11-09-2024 Mumps,Immun,Ab 5.15 Normal >1.09 [facility] Comment on above: Result Comment: Interpretation: IMMUNE Reference Range: <0.91 Not Immune 0.91-1.09 Equivocal >1.09 Immune Performed By: #### R UBI, FEDE, BRIJESH, VZI #### [facility]66. com [address] [place] [address] [id number] Clinical Geneticist: Pedro Hand MD VZ Immunityon 11-09-2024 VZ Immunity 3.41 Normal >1.09 [facility] Comment on above: Result Comment: Interpretation: IMMUNE Reference Range: <0.91 Not Immune 0.91-1.09 Equivocal >1.09 Immune Performed By: #### R UBI, FEDE, BRIJESH, VZI #### [facility]66. com [address] [place] [address] [id number] Clinical Geneticist: Pedro Hand MD Rubella Ab, IgGon 11-08-2024 Rubella Ab, IgG 104.0 IU/mL Normal [facility] Comment on above: Result Comment: <10 NON REACTIVE Negative for Anti-Rubella IgG >=10 REACTIVE Positive for Anti Rubella IgG The presence of IgG antibody to Rubella virus is an indication of previous exposure either by prior infection or vaccination. Performed By: #### R UBI, FEDE, BRIJESH, VZI #### [address] [place] [address] [id number] Clinical Geneticist: Pedro Hand MD Rubella antibody, IgGon 10-16 Rubella virus IgG IA Ql 104.0 IU/mL [facility] Comment on above: <10 NON REACTIVE Negative for Anti-Rubella IgG >=10 REACTIVE Positive for Anti Rubella IgG The presence of IgG antibody to Rubella virus is an indication of previous exposure either by prior infection or vaccination. [facility] Albumin [Mass/Vol] 3.3 g/dL Low 3.4 - 5.0 g/dL NO [facility] ALBUMIN GLOBULIN RATIO 0.9 [facility] ALP [Catalytic activity/Vol] 86 U/L 46 - 116 U/L [facility] ALT [Catalytic activity/Vol] 22 U/L 14 - 59 U/L [facility] AST [Catalytic activity/Vol] 14 U/L Low 15 - 37 U/L [facility] Bilirubin [Mass/Vol] 0.4 mg/dL 0.2 - 1 .0 mg/dL [facility] Bilirubin.indirect [Mass/Vol] 0.1 mg/dL 0.0 - 0.2 mg/dL [facility] Globulin (S) [Mass/Vol] 3.7 g/dL [facility] Interpretation and review of laboratory results Abnormal [facility] Protein [Mass/Vol] 7 g/dL 6.4 - 8.2 g/dL NO [facility] MICROALB CREAT RATIO RAN DOMon 09-10-2024 CREATININE URINE RANDOM 245.77 mg/dL 20.00 - 300.00 mg/dL [facility] MICROALBUMIN URINE RANDOM <1.3 NINF - 30.0 mg/dL [facility] Urine Cultureon 09-10-2024 Bacteria identified Cx Nom (U) <9,000 colonies/ml mixed bacterial skin contaminants 2 Days PERFORMED BY: [facility] [address] [place] [address] PATHOLOGIST CARDIAC CARE UNIT NURSE JOLANTA BOSCH M.D. Normal [facility] Comment on above: Performed By: #### C UU #### [facility] [address] PROF CHEM 8 (BAS METB)on Anion gap [Moles/Vol] 6.5 mmol/L Normal [facility] Comment on above: Performed By: #### B MP #### [facility] [address] [address] [address] Hudson Guerrero Calcium [Mass/Vol] 9.3 mg/dL Normal 8.5-10.1 [facility] Comment on above: Performed By: #### B MP #### [facility] [address] [address] [address] Hudson Guerrero Chloride [Moles/Vol] 102 mmol/L Normal 98-107 [facility] Comment on above: Performed By: #### B MP #### [facility] [address] [address] [address] Hudson Guerrero CO2 [Moles/Vol] 32.5 mmol/L Critically high 21.0-32.0 [facility] Comment on above: Performed By: #### B MP #### [facility] [address] [address] [address] Hudson Guerrero Creatinine [Mass/Vol] 0.64 mg/dL Normal 0.55-1.02 [facility] Comment on above: Performed By: #### B MP #### [facility] [address] [address] [address] Hudson Guerrero EGFR-AF LIBYAN >60 Normal >=60 [facility] Comment on above: Performed By: #### B MP #### [facility] [address] [address] [address] Hudson Guerrero EGFR-NON AF LIBYAN >60 Normal >=60 [facility] Comment on above: Performed By: #### B MP #### [facility] [address] [address] [address] Hudson Guerrero Glucose [Mass/Vol] 100 mg/dL Normal 74-106 [facility] Comment on above: Performed By: #### B MP #### [facility] [address] [address] [address] Hudson Guerrero Potassium [Moles/Vol] 4.0 mmol/L Normal 3.5-5.1 [facility] Comment on above: Performed By: #### B MP #### [facility] [address] [place] [address] Dr. Hudson Guerrero Sodium [Moles/Vol] 137 mmol/L Normal 136-145 [facility] Comment on above: Performed By: #### B MP #### [facility] [address] [address] [address] Hudson Guerrero Urea nitrogen [Mass/Vol] 18.0 mg/dL Normal 7.0-18.0 [facility] Comment on above: Performed By: #### B MP #### [facility] [address] [place] [address] Dr. Hudson Guerrero Urea nitrogen/Creatinine [Mass ratio] 28.1 mg/mg Normal [facility] Comment on above: Performed By: #### B MP #### [facility] [address] [address] [address] Hudson Guerrero MG MAMM SCREEN 3D ISABLELA CADon 10-28-2022 MG MAMM SCREEN 3D ISABELLA CAD Patient: WAYNE LOZADA Exam Date: 10/28/2022 : 1965 Gender:F Ordering : GLENNY ANTUNEZ FINANCIAL ASSISTANCE SPECIALIST Admission #: [id number] Family : DR KLAUDIA BARAKAT Order #: [id number] CLICK HERE TO VIEW EXAM RADIOLOGY REPORT [...] myeloma cancer at age 74. LOCATION: [facility] BREAST COMPOSITION: Heterogeneously dense,which may obscure small [...] MD on 10/29/2022 at 06:14 Normal [facility] MRI ANKLE RT WO CONon 2022 MRI [...] MEGAN ZAMBRANO Date: 2022-10-26 17:41 Normal [facility] GLYCOHEMOGLOBIN A1Con 2022 ADA RECOMMENDATION SEE BELOW Normal [facility] Comment on above: Result Comment: ADA RECOMMENDED LIMIT 4.0 - 6.0 ADA THERAPEUTIC TARGET < 7.0 ACTION SUGGESTED > 7.0 Performed By: #### A 1C ####[facility] [id number] [place], [place] [address]UjRehan Guerrero Glucose [Mass/Vol] 117 mg/dL Normal [facility] Comment on above: Performed By: #### A 1C ####[facility] [address] [place], [place] [address]NzRehan Guerrero HbA1c (Bld) [Mass fraction] 5.7 % Normal 4.5-6.2 [facility] Comment on above: Performed By: #### A 1C ####[facility] [id number] [id number]. Hudson Guerrero CBC AUTO DIFFon 06-28-2022 BASO # 0.0 103/ul Normal 0.0-0.1 [facility] Comment on above: Performed By: #### C BC #### [facility] [address] [place] [address] Dr. Hudson Guerrero Basophils/100 WBC (Bld) 0.4 % Normal 0.2-2.0 [facility] Comment on above: Performed By: #### C BC #### [facility] [address] [place] [address] Dr. Hudson Guerrero EO # 0.2 103/ul Normal 0.0-0.7 [facility] Comment on above: Performed By: #### C BC #### [facility] [address] [place] [address] Dr. Hudson Guerrero Eosinophils/100 WBC (Bld) 2.6 % Normal 0.9-7.0 [facility] Comment on above: Performed By: #### C BC #### [facility] [address] [place] [address] Dr. Hudson Guerrero Erythrocyte distribution width (RBC) [Ratio] 12.5 % Normal 11.0-15.0 [facility] Comment on above: Performed By: #### C BC #### [facility] [address] [place] [address] Dr. Hudson Guerrero Hematocrit (Bld) [Volume fraction] 36.6 % Normal 36.0-48.0 [facility] Comment on above: Performed By: #### C BC #### [facility] [address] [place] [address] Dr. Hudson Guerrero Hemoglobin (Bld) [Mass/Vol] 12.2 g/dL Normal 12.0-16.0 [facility] Comment on above: Performed By: #### C BC #### [facility] [address] [place] [address] Dr. Hudson Guerrero IG # 0.04 10e3/ul Critically high 0.00-0.03 [facility] Comment on above: Performed By: #### C BC #### [facility] [address] [place] [address] Dr. Hudson Guerrero IG % 0.5 % Normal 0.0-0.5 [facility] Comment on above: Performed By: #### C BC #### [facility] [address] [place] [address] Dr. Hudson Guerrero LYMPH # 1.5 103/ul Normal 1.2-3.8 [facility] Comment on above: Performed By: #### C BC #### [facility] [address] [place] [address] Dr. Hudson Guerrero Lymphocytes/100 WBC (Bld) 18.8 % Critically low 20.5-60.0 [facility] Comment on above: Performed By: #### C BC #### [facility] [address] [place] [address] Dr. Hudson Guerrero MANUAL DIFF REQ NO Normal [facility] Comment on above: Performed By: #### C BC #### [facility] [address] [place] [address] Dr. Hudson Guerrero MCH (RBC) [Entitic mass] 31.8 pg Normal 26.7-34.0 [facility] Comment on above: Performed By: #### C BC #### [facility] [address] [place] [address] Dr. Hudson Guerrero MCHC (RBC) [Mass/Vol] 33.3 g/dL Normal 29.9-35.2 [facility] Comment on above: Performed By: #### C BC #### [facility] [address] [place] [address] Dr. Hudson Guerrero MCV (RBC) [Entitic vol] 95.3 fL Normal 81.0-99.0 [facility] Comment on above: Performed By: #### C BC #### [facility] [address] [place] [address] Dr. Hudson Guerrero MONO # 0.5 103/ul Normal 0.3-0.8 [facility] Comment on above: Performed By: #### C BC #### [facility] [address] [address] [address] Hudson Guerrero Monocytes/100 WBC (Bld) 6.3 % Normal 1.7-12.0 [facility] Comment on above: Performed By: #### C BC #### [facility] [address] [address] [address] Hudson Guerrero NEUT # 5.6 103/ul Normal 1.4-6.5 [facility] Comment on above: Performed By: #### C BC #### [facility] [address] [address] [address] Hudson Guerrero Neutrophils/100 WBC (Bld) 71.4 % Normal 43.0-75.0 [facility] Comment on above: Performed By: #### C BC #### [facility] [address] [place] [address] Dr. Hudson Guerrero Platelet mean volume (Bld) [Entitic vol] 8.9 fL Critically low 9.5-13.5 [facility] Comment on above: Performed By: #### C BC #### [facility] [address] [place] [address] Dr. Hudson Guerrero PLT 292 103/ul Normal 150-450 [facility] Comment on above: Performed By: #### C BC #### [facility] [address] [place] [address] Dr. Hudson Guerrero RBC 3.84 106/ul Critically low 4.20-5.40 [facility] Comment on above: Performed By: #### C BC #### [facility] [address] [place] [address] Dr. Hudson Guerrero WBC 7.8 103/ul Normal 4.0-11.0 [facility] Comment on above: Performed By: #### C BC #### [facility] [address] [place] [address] Dr. Hudson Guerrero FREE T4on 06-28-2022 Free T4 [Mass/Vol] 0.91 ng/dL Normal 0.76-1.46 [facility] Comment on above: Performed By: #### F T4 ####[facility] [address] [id number]. Hudson Guerrero GLYCOHEMOGLOBIN A1Con 2021 ADA RECOMMENDATION SEE BELOW Normal [facility] Comment on above: Result Comment: ADA RECOMMENDED LIMIT 4.0 - 6.0 ADA THERAPEUTIC TARGET < 7.0 ACTION SUGGESTED > 7.0 Performed By: #### A 1C #### [facility] [address] [address] [address] Hudson Guerrero Glucose [Mass/Vol] 134 mg/dL Normal [facility] Comment on above: Performed By: #### A 1C #### [facility] [address] [address] [address] Hudson Guerrero HbA1c (Bld) [Mass fraction] 6.3 % Critically high 4.5-6.2 [facility] Comment on above: Performed By: #### A 1C #### [facility] [address] [address] [address] Hudson Guerrero LIPID PROFILEon 06-28-2022 CHOL-HDL RATIO NORM SEE BELOW Normal [facility] Comment on above: Result Comment: 3.3 - 4.4 LOW RISK 4.4 - 7.1 AVERAGE RISK 7.1 - 11.0 MODERATE RISK >11.0 HIGH RISK Performed By: #### C MP, TSH, LIPID ####[facility] [address] [id number] Guerrero Cholesterol [Mass/Vol] 159 mg/dL Normal <=200 [facility] Comment on above: Performed By: #### C MP, TSH, LIPID ####[facility] [address] [id number] Guerrero Cholesterol in HDL [Mass/Vol] 45 mg/dL Normal 40-60 [facility] Comment on above: Performed By: #### C MP, TSH, LIPID ####[facility] [address] [id number] Guerrero Cholesterol in LDL [Mass/Vol] 82.6 mg/dL Normal [facility] Comment on above: Performed By: #### C MP, TSH, LIPID ####[facility] [address] [id number]. Hudson Guerrero Cholesterol.total/Ch olesterol in HDL [Mass ratio] 3.5 {ratio} Normal [facility] Comment on above: Performed By: #### C MP, TSH, LIPID ####[facility] [address] [id number]. Hudson Guerrero HDL NORMAL > or = 60 mg/dl - LOW CARDIOVASCULAR RISK <40 mg/dl - HIGH CARDIOVASCULAR RISK Normal [facility] Comment on above: Performed By: #### C MP, TSH, LIPID ####[facility] [address] [address]Dr. Hudson Guerrero LDL CALC NORMAL SEE BELOW Normal [facility] Comment on above: Result Comment: <100 mg/dl OPTIMAL 100 - 129 mg/dl NEAR OR ABOVE OPTIMAL 130 - 159 mg/dl BORDERLINE HIGH 160 - 189 mg/dl HIGH >190 mg/dl VERY HIGH Performed By: #### C MP, TSH, LIPID ####[facility] [address] [address]Dr. Hudson Guerrero Triglyceride [Mass/Vol] 157 mg/dL Critically high <=150 [facility] Comment on above: Performed By: #### C MP, TSH, LIPID ####[facility] [address] [address]Dr. Hudson Guerrero VLDL CALC 31.4 mg/dL Normal [facility] Comment on above: Performed By: #### C MP, TSH, LIPID ####[facility] [address] [id number]. Hudson Guerrero PROF 14(COMP METB)on 022 Albumin [Mass/Vol] 3.7 g/dL Normal 3.4-5.0 [facility] Comment on above: Performed By: #### C MP, TSH, LIPID ####[facility] [address] [id number]. Hudson Guerrero Albumin/Globulin [Mass ratio] 0.9 {ratio} Normal [facility] Comment on above: Performed By: #### C MP, TSH, LIPID ####[facility] [address] [id number]. Hudson Guerrero ALP [Catalytic activity/Vol] 88 U/L Normal 46-116 [facility] Comment on above: Performed By: #### C MP, TSH, LIPID ####[facility] [address] [id number]. Hudson Guerrero ALT [Catalytic activity/Vol] 45 U/L Normal 14-59 [facility] Comment on above: Performed By: #### C MP, TSH, LIPID ####[facility] [address] [address]Dr. Hudson Guerrero Anion gap [Moles/Vol] 14.1 mmol/L Normal [facility] Comment on above: Performed By: #### C MP, TSH, LIPID ####[facility] [address] [address]Dr. Hudson Guerrero AST [Catalytic activity/Vol] 39 U/L Critically high 15-37 [facility] Comment on above: Performed By: #### C MP, TSH, LIPID ####[facility] [address] [place], [place] [address]Dr. Hudson Guerrero Bilirubin [Mass/Vol] 0.5 mg/dL Normal 0.2-1.0 [facility] Comment on above: Performed By: #### C MP, TSH, LIPID ####[facility] [address] [address]Dr. Hudson Guerrero Calcium [Mass/Vol] 9.3 mg/dL Normal 8.5-10.1 [facility] Comment on above: Performed By: #### C MP, TSH, LIPID ####[facility] [address] [address]Dr. Hudson Guerrero Chloride [Moles/Vol] 106 mmol/L Normal 98-107 [facility] Comment on above: Performed By: #### C MP, TSH, LIPID ####[facility] [address] [address]Dr. Hudson Guerrero CO2 [Moles/Vol] 28.5 mmol/L Normal 21.0-32.[address] [facility] Comment on above: Performed By: #### C MP, TSH, LIPID ####[facility] [address] [address]Dr. Vikkichristina Guerrero Creatinine [Mass/Vol] 0.55 mg/dL Normal 0.55-1.02 [facility] Comment on above: Performed By: #### C MP, TSH, LIPID ####[facility] [address] [id number]. Hudson Cesar EGFR-AF LIBYAN >60 Normal >=[address] [facility] Comment on above: Performed By: #### C MP, TSH, LIPID ####[facility] [address] [address]Dr. Hudson Guerrero EGFR-NON AF LIBYAN >60 Normal >=60 [facility] Comment on above: Performed By: #### C MP, TSH, LIPID ####[facility] [address] [address]Dr. Hudson Guerrero Globulin (S) [Mass/Vol] 4.0 g/dL Normal [facility] Comment on above: Performed By: #### C MP, TSH, LIPID ####[facility] [address] [address]Dr. Hudson Guerrero Glucose [Mass/Vol] 115 mg/dL Critically high 74-106 [facility] Comment on above: Performed By: #### C MP, TSH, LIPID ####[facility] [address] [address]Dr. Hudson Guerrero Potassium [Moles/Vol] 4.6 mmol/L Normal 3.5-5.1 [facility] Comment on above: Performed By: #### C MP, TSH, LIPID ####[facility] [address] [address]Dr. Hudson Guerrero Protein [Mass/Vol] 7.7 g/dL Normal 6.4-8.2 [facility] Comment on above: Performed By: #### C MP, TSH, LIPID ####[facility] [address] [id number]. Hudson Guerrero Sodium [Moles/Vol] 144 mmol/L Normal 136-145 [facility] Comment on above: Performed By: #### C MP, TSH, LIPID ####[facility] [address] [address]Dr. Hudson Guerrero Urea nitrogen [Mass/Vol] 16.0 mg/dL Normal 7.0-18.0 [facility] Comment on above: Performed By: #### C MP, TSH, LIPID ####[facility] [address] [id number]. Hudson Guerrero Urea nitrogen/Creatinine [Mass ratio] 29.1 mg/mg Normal [facility] Comment on above: Performed By: #### C MP, TSH, LIPID ####[facility] [address] [address]Dr. Hudson Guerrero TSHon 06-28-2022 TSH 1.163 uIU/mL Normal 0.358-3.740 [facility] Comment on above: Performed By: #### C MP, TSH, LIPID ####[facility] [address] [address]Dr. Hudson Guerrero UA RANDOM W/MICROSCOPICon BACTERIA SMALL Abnormal NONE SEEN [facility] Comment on above: Performed By: #### U AMIC #### [facility] [address] [place] [address] Dr. Hudson Guerrero Bilirubin Ql (U) Negative Normal NEGATIVE [facility] Comment on above: Performed By: #### U AMIC #### [facility] [address] [address] [address] Hudson Guerrero CAST NONE SEEN Normal NONE SEEN [facility] Comment on above: Performed By: #### U AMIC #### [facility] [address] [place] [address] Dr. Hudson Guerrero Clarity (U) CLEAR Normal CLEAR [facility] Comment on above: Performed By: #### U AMIC #### [facility] [address] [place] [address] Dr. Hudson Guerrero Color (U) LT. YELLOW Normal YELLOW [facility] Comment on above: Performed By: #### U AMIC #### [facility] [address] [address] [address] Hudson Guerrero Crystals LM Nom (Urine sed) NONE SEEN Normal NONE SEEN [facility] Comment on above: Performed By: #### U AMIC #### [facility] [address] [address] [address] Hudson Guerrero Epithelial cells LM Ql (Urine sed) FEW Abnormal NONE SEEN /RARE [facility] Comment on above: Performed By: #### U AMIC #### [facility] [address] [address] [address] Hudson Guerrero Glucose Ql (U) Negative Normal NEGATIVE [facility] Comment on above: Performed By: #### U AMIC #### [facility] [address] [place] [address] Dr. Hudson Guerrero Hemoglobin Ql (U) Negative Normal NEGATIVE [facility] Comment on above: Performed By: #### U AMIC #### [facility] [address] [address] [address] Hudson Guerrero Ketones Ql (U) Negative Normal NEGATIVE [facility] Comment on above: Performed By: #### U AMIC #### [facility] [address] [address] [address] Hudson Guerrero LEUKOCYTES SMALL Abnormal NEGATIVE [facility] Comment on above: Performed By: #### U AMIC #### [facility] [address] [address] [address] Hudson Guerrero MUCOUS NONE SEEN Normal NONE SEEN [facility] Comment on above: Performed By: #### U AMIC #### [facility] [address] [address] [address] Hudson Guerrero Nitrite Ql (U) Negative Normal NEGATIVE [facility] Comment on above: Performed By: #### U AMIC #### [facility] [address] [address] [address] Hudson Guerrero pH (U) 6.0 [pH] Normal 5-9 [facility] Comment on above: Performed By: #### U AMIC #### [facility] [address] [place] [address] Dr. Hudson Guerrero RBC NONE SEEN Abnormal 0-2 [facility] Comment on above: Performed By: #### U AMIC #### [facility] [address] [place] [address] Dr. Hudson Guerrero SPEC GRAVITY 1.025 Normal 1.005-<=1.025 [facility] Comment on above: Performed By: #### U AMIC #### [facility] [address] [place] [address] Dr. Hudson Guerrero UA PROTEIN Negative Normal NEGATIVE/ TRACE [facility] Comment on above: Performed By: #### U AMIC #### [facility] [address] [place] [address] Dr. Hudson Guerrero Urobilinogen Qn (U) 0.2 {Andi'U}/dL Normal 0.2 - 1. 0 [facility] Comment on above: Performed By: #### U AMIC #### [facility] [address] [place] [address] Dr. Hudson Guerrero WBC 2-5 Abnormal NONE SEEN [facility] Comment on above: Performed By: #### U AMIC #### [facility] [address] [place] [address] Dr. Hudson Guerrero TSHon 01-24-2022 TSH 2.622 uIU/mL Normal 0.358-3.740 [facility] Comment on above: Performed By: #### T SH #### [facility] [address] [place] [address] Dr. Hudosn Guerrero TSH RANGE SEE BELOW Normal [facility] Comment on above: Result Comment: <0.3 4 UIU/ml HYPERTHYROID 0.34-5.60 UIU/ml EUTHYROID >5.60 UIU/ml HYPOTHYROID Performed By: #### T SH #### [facility] [address] [place] [address] Dr. Hudson Guerrero Vital Signs Date Time Vital Sign Value Performing Clinician Viridianai lity 11-15-2024 15:01-0500 Body height 170.2 cm Bijal Aichholz HAND MARKER Work Phone: [facility] 11-15-2024 15:01-0500 Body mass index (BMI) [Ratio] 44.04 kg/m2 Bijal Antunez HAND MARKER Work Phone: [facility] 11-15-2024 15:01-0500 Body temperature 98.4 [degF] Bijal Antunez HAND MARKER Work Phone: [facility] 11-15-2024 15:01-0500 Body weight 127.55 kg Bijal Antunez HAND MARKER Work Phone: [facility] 11-15-2024 15:01-0500 Diastolic blood pressure 84 mm[Hg] Bijal Antunez HAND MARKER Work Phone: [facility] 11-15-2024 15:01-0500 Heart rate 86 /min Bijal Antunez HAND MARKER Work Phone: [facility] 11-15-2024 15:01-0500 Respiratory rate 18 /min Bijal Antunez HAND MARKER Work Phone: [facility] 11-15-2024 15:01-0500 SaO2% (BldA) [Mass fraction] 96 % Bijal Antunez HAND MARKER Work Phone: [facility] 11-15-2024 15:01-0500 Systolic blood pressure 120 mm[Hg] Bijal Antunez HAND MARKER Work Phone: [facility] 08-22-2024 10:07-0500 Body height 170.2 cm Klaudia Barakat DO Work Phone: [facility] 08-22-2024 10:07-0500 Body mass index (BMI) [Ratio] 43.85 kg/m2 Klaudia Barakat DO Work Phone: [facility] 08-22-2024 10:07-0500 Body weight 127.01 kg Klaudia Barakat DO Work Phone: [facility] 08-22-2024 10:07-0500 Diastolic blood pressure 78 mm[Hg] Klaudia Barakat DO Work Phone: [facility] 08-22-2024 10:07-0500 Systolic blood pressure 134 mm[Hg] Klaudia Barakat DO Work Phone: [facility] 08-17-2024 15:46-0500 Body height 170.2 cm Bijal Aichholz HAND MARKER Work Phone: [facility] 08-17-2024 15:46-0500 Body mass index (BMI) [Ratio] 43.89 kg/m2 Bijal Aichholz HAND MARKER Work Phone: [facility] 08-17-2024 15:46-0500 Body temperature 98.1 [degF] Bijal Aichholz HAND MARKER Work Phone: [facility] 08-17-2024 15:46-0500 Body weight 127.1 kg Bijal Aichholz HAND MARKER Work Phone: [facility] 08-17-2024 15:46-0500 Diastolic blood pressure 86 mm[Hg] Bijal Aichholz HAND MARKER Work Phone: [facility] 08-17-2024 15:46-0500 Heart rate 97 /min Bijal Aichholz HAND MARKER Work Phone: [facility] 08-17-2024 15:46-0500 Respiratory rate 18 /min Bijal Aichholz HAND MARKER Work Phone: [facility] 08-17-2024 15:46-0500 SaO2% (BldA) [Mass fraction] 98 % Bijal Aichholz HAND MARKER Work Phone: [facility] 08-17-2024 15:46-0500 Systolic blood pressure 132 mm[Hg] Bijal Aichholz HAND MARKER Work Phone: [facility] 05-25-2024 16:07-0400 Body height 170.2 cm Bijal Aichholz HAND MARKER Work Phone: [facility] 05-25-2024 16:07-0400 Body mass index (BMI) [Ratio] 45.11 kg/m2 Bijal Salasz HAND MARKER Work Phone: [facility] 05-25-2024 16:07-0400 Body temperature 97.81 [degF] Bijal Marlonhholz HAND MARKER Work Phone: [facility] 05-25-2024 16:07-0400 Body weight 130.64 kg Bijal Marlonhholz HAND MARKER Work Phone: [facility] 05-25-2024 16:07-0400 Diastolic blood pressure 80 mm[Hg] Bijal Aichholz HAND MARKER Work Phone: [facility] 05-25-2024 16:07-0400 Heart rate 79 /min Bijal Aichholz HAND MARKER Work Phone: [facility] 05-25-2024 16:07-0400 Respiratory rate 20 /min Bijal Marlonhholz HAND MARKER Work Phone: [facility] 05-25-2024 16:07-0400 SaO2% (BldA) [Mass fraction] 97 % Bijal Aichholz HAND MARKER Work Phone: [facility] 05-25-2024 16:07-0400 Systolic blood pressure 122 mm[Hg] Bijal Aichholz HAND MARKER Work Phone: [facility] Healthcare Encounters Encounter Date Encounter Type Care Provider Facility Start: 11-15-2024 End: 11-15-2024 Office outpatient visit 25 minutes Bijal Antunez HAND MARKER Work Phone: [facility] Comment on above: Primary hypertension (CMS/HCC) (Primary Dx); Elevated liver function tests; Bilateral lower extremity edema; Acquired hypothyroidism (CMS/HCC); Class 3 severe obesity due to excess calories without serious comorbidity with body mass index (BMI) of 40.0 to 44.9 in adult (CMS/HCC); Postprandial RUQ pain Start: 11-15-2024 End: 11-15-2024 ambulatory BIJAL HARMONY Not Available Start: 11-15-2024 End: 11-15-2024 Bamboo flowsheet Bijal Harmony HAND MARKER Work Phone: [facility] Start: 11-15-2024 End: 11-15-2024 Bamboo flowsheet Bijal Antunez HAND MARKER Work Phone: [facility] Start: 11-08-2024 End: 11-08-2024 ambulatory SHERIF COLE [facility] Start: 11-08-2024 End: 11-08-2024 Subsequent hospital visit by physician [facility] Start: 09-26-2024 End: 09-26-2024 Clinisync Result Encounter Bijal Antunez HAND MARKER Work Phone: [facility] Unsolicited Start: 09-26-2024 End: 09-26-2024 Clinisync Result Encounter Bijal Harmony HAND MARKER Work Phone: [facility] Unsolicited Start: 09-19-2024 End: 09-19-2024 Refill Bijal Harmony HAND MARKER Work Phone: [facility] Comment on above: UTI symptoms (Primar y Dx) Start: 09-14-2024 End: 09-14-2024 Orders Only Bijal Antunez HAND MARKER Work Phone: [facility] Comment on above: Elevated liver funct ion tests (Primary Dx) Start: 09-10-2024 End: 09-10-2024 Clinisync Result Encounter Bijal Harmony HAND MARKER Work Phone: [facility] Unsolicited Start: 09-10-2024 End: 09-10-2024 Clinisync Result Encounter Bijal Harmony HAND MARKER Work Phone: [facility] Unsolicited Start: 09-10-2024 End: 09-10-2024 ambulatory NON STAFF Facility:[facility] Start: 09-08-2024 End: 09-08-2024 Refill Bijal Harmony HAND MARKER Work Phone: [facility] Comment on above: Class 3 severe obesi ty due to excess calories without serious comorbidity with body mass index (BMI) of 40.0 to 44.9 in adult (CMS/HCC) (Primary Dx) Start: 08-22-2024 End: 08-22-2024 Patient encounter status Klaudia Buck Zain DO Work Phone: [facility] Healthcare Start: 08-22-2024 End: 08-22-2024 Periodic preventive med est patient 40-64yrs Klaudia Cielo Barakat DO Work Phone: [facility] Comment on above: Encounter for gyneco logical examination without abnormal finding; Screening for malignant neoplasm of cervix; Breast cancer screening by mammogram; Hormone replacement therapy Start: 08-22-2024 End: 08-22-2024 ambulatory KLAUDIA Cielo BARAKAT Not Available Start: 08-17-2024 End: 08-17-2024 ambulatory BIJAL ANTUNEZ Not Available Start: 08-17-2024 End: 08-17-2024 Periodic preventive med est patient 40-64yrs Bijal Antunez HAND MARKER Work Phone: [facility] Comment on above: Encounter for [...] 08-17-2024 End: 08-17-2024 Bamboo flowsheet Bijal Antunez HAND MARKER Work Phone: [facility] Start: 08-17-2024 End: 08-17-2024 Bamboo flowsheet Bijal Antunez HAND MARKER Work Phone: [facility] Start: 08-17-2024 End: 08-17-2024 Patient encounter status Bijal Antunez HAND MARKER Work Phone: [facility] Start: 08-10-2024 End: 08-10-2024 Refill Bijal Antunez HAND MARKER Work Phone: [facility] Comment on above: Class 3 severe obesi ty due to excess calories without serious comorbidity with body mass index (BMI) of 45.0 to 49.9 in adult ([facility]) (Primary Dx) Start: 08-07-2024 End: 08-08-2024 Refill Charan Quinn MD Work Phone: [facility] Comment on above: Other chronic pain ( Primary Dx) Start: 05-25-2024 End: 05-25-2024 Office outpatient visit 25 minutes Bijal Antunez HAND MARKER Work Phone: [facility] Comment on above: Plantar fasciitis, r ight (Primary Dx); Primary hypertension ([facility]); Class 3 severe obesity due to excess calories without serious comorbidity with body mass index (BMI) of 45.0 to 49.9 in adult ([facility]); Bilateral lower extremity edema Start: 05-25-2024 End: 05-25-2024 ambulatory BIJAL AICHHOLZ Not Available Start: 05-25-2024 End: 05-25-2024 Bamboo flowsheet Bijal Salasz HAND MARKER Work Phone: [facility] Start: 05-25-2024 End: 05-25-2024 Bamboo flowsheet Bijal Aichholz HAND MARKER Work Phone: [facility] Start: 03-22-2024 End: 03-22-2024 ambulatory BIJAL AICHHOLZ Not Available Start: 03-15-2024 End: 03-15-2024 ambulatory DESTINY H TIMMIS Not Available Start: 02-02-2024 End: 02-02-2024 ambulatory DESTINY H TIMMIS Not Available Start: 01-20-2024 End: 01-20-2024 ambulatory BIJAL AICHHOLZ Not Available Start: 01-17-2023 End: 01-18-2023 ambulatory FINANCIAL ASSISTANCE SPECIALIST BIJAL AICHHOLZ Facility: Start: 10-28-2022 End: 02-15-2023 ambulatory FINANCIAL ASSISTANCE SPECIALIST BIJAL AICHHOLZ Facility:[facility] Start: 10-24-2022 End: 10-25-2022 ambulatory GLENNY ANTUNEZ Facility:[facility] Start: 10-14-2022 End: 10-15-2022 ambulatory GLENNY ANTUNEZ Facility:[facility] Start: 10-09-2022 End: 10-10-2022 ambulatory GLENNY ANTUNEZ Facility:[facility] Start: 08-13-2022 End: 08-14-2022 ambulatory GLENNY [...] Date Procedure Procedure Detail Performing Clinician Start: 11-08-2024 Antibody rajendra Cole NUT BLANKER OPERATOR - [facility] Work Phone: Start: 09-26-2024 [facility] LIVER PANEL Bijal leung HAND MARKER Work Phone: Start: 09-10-2024 [facility] MICROALB CREAT R ATIO RANDOM Bijal Antunez HAND MARKER Work Phone: Start: 12-02-2023 Mammography Bijal eddy HAND MARKER Work Phone: Start: 01-12-2019 Colonoscopy Bijal eddy HAND MARKER Work Phone: Plan of Treatment Date Care Activity Detail Author Start: 01-12-2029 Screening for malign ant neoplasm of colon [facility] Start: 02-15-2025 End: 02-15-2025 Patient encounter procedure 02/15/2025 8:40 AM EDT Office Visit [facility] [address] [place] [address] Bijal Antunez, SIENNA [address] [place] [address] [facility] Start: 12-01-2024 Screening for malign ant neoplasm of breast Mammogram [facility] Start: 11-16-2024 End: 11-16-2024 Patient encounter procedure 11/16/2024 3:40 PM EST Office Visit [facility] [address] [place] [address] Bijal Antunez, HAND MARKER [address] [place] [phone] [facility] Start: 11-15-2024 End: 11-15-2024 Patient encounter procedure 11/15/2024 3:00 PM EST Office Visit [facility] [address] [place] [address] Bijal Antunez, HAND MARKER [address] [place] [address] Primary hypertension (CMS/HCC) (Primary Dx); Elevated liver function tests; Bilateral lower extremity edema; Acquired hypothyroidism (CMS/HCC); Class 3 severe obesity due to excess calories without serious comorbidity with body mass index (BMI) of 40.0 to 44.9 in adult (CMS/HCC) [facility] Comment on above: Primary hypertension (CMS/HCC) (Primary Dx); Elevated liver function tests; Bilateral lower extremity edema; Acquired hypothyroidism (CMS/HCC); Class 3 severe obesity due to excess calories without serious comorbidity with body mass index (BMI) of 40.0 to 44.9 in adult (CMS/HCC) Start: 11-15-2024 End: 11-15-2025 US Gallbladder US gallbladder Imaging Routine Postprandial RUQ pain Expected: 11/15/2024, Expires: 11/15/2025 [facility] Work Phone: Comment on above: Expected: 11/15/2024 , Expires: 11/15/2025 Start: 09-28-2024 End: 09-14-2025 Hepatic function 2000 panel - Serum or Plasma Hepatic function panel Lab Routine Elevated liver function tests Expected: 09/28/2024 (Approximate), Expires: 09/14/2025 [facility] Work Phone: Comment on above: Expected: 09/28/2024 (Approximate), Expires: 09/14/2025 Start: 08-22-2024 End: 10-23-2025 DBT Breast - bilateral screening Bilateral screening mammogram with tomosynthesis Imaging Routine Breast cancer screening by mammogram Expected: 08/22/2024, Expires: 10/23/2025 [facility] Comment on above: Expected: 08/22/2024 , Expires: 10/23/2025 Start: 08-22-2024 End: 08-22-2024 Patient encounter procedure 08/22/2024 10:00 AM EST Office Visit [facility] [address] [place] [address] Klaudia Barakat DO [address] [place] [address] [facility] Start: 08-17-2024 End: 08-17-2024 Patient encounter procedure 08/17/2024 3:40 PM EST Office Visit [facility] [address] [place] [address] Bijal Antunez NP [address] [place] [id number] [facility] Start: 08-17-2024 End: 08-17-2025 CBC W Auto Differential panel - Blood CBC and differential Lab Routine Encounter For Adult Wellness Visit Expected: 08/17/2024 (Approximate), Expires: 08/17/2025 [facility] Work Phone: Comment on above: Expected: 08/17/2024 (Approximate), Expires: 08/17/2025 Start: 08-17-2024 End: 08-17-2025 Comprehensive metabolic 2000 panel - Serum or Plasma Comprehensive metabolic panel Lab Routine Encounter for adult wellness visit Expected: 08/17/2024 (Approximate), Expires: 08/17/2025 [facility] Comment on above: Expected: 08/17/2024 (Approximate), Expires: 08/17/2025 Start: 08-17-2024 End: 08-17-2025 Lipid 1996 panel - Serum or Plasma Lipid panel Lab Routine Encounter for adult wellness visit Expected: 08/17/2024 (Approximate), Expires: 08/17/2025 [facility] Comment on above: Expected: 08/17/2024 (Approximate), Expires: 08/17/2025 Start: 08-17-2024 End: 08-17-2025 Microalbumin/Creatinine panel in random Urine Microalbumin / creatinine, urine ratio Lab Routine Encounter for adult wellness visit Expected: 08/17/2024 (Approximate), Expires: 08/17/2025 [facility] Comment on above: Expected: 08/17/2024 (Approximate), Expires: 08/17/2025 Start: 08-17-2024 End: 08-17-2025 Thyrotropin [Units/volume] in Serum or Plasma TSH Lab Routine Encounter for adult wellness visit Expected: 08/17/2024 (Approximate), Expires: 08/17/2025 [facility] Comment on above: Expected: 08/17/2024 (Approximate), Expires: 08/17/2025 Start: 08-17-2024 End: 08-17-2025 Thyroxine (T4) free [Mass/volume] in Serum or Plasma T4, free Lab Routine Encounter for adult wellness visit Expected: 08/17/2024 (Approximate), Expires: 08/17/2025 [facility] Comment on above: Expected: 08/17/2024 (Approximate), Expires: 08/17/2025 Start: 08-17-2024 End: 08-17-2025 Urinalysis complete panel - Urine Urinalysis with reflex microscopic (clean catch) Lab Routine Encounter for adult wellness visit Expected: 08/17/2024 (Approximate), Expires: 08/17/2025 [facility] Comment on above: Expected: 08/17/2024 (Approximate), Expires: 08/17/2025 Start: 05-25-2024 End: 05-25-2024 Patient encounter procedure 05/25/2024 3:40 PM EDT [facility] [address] [place] [address] Bijal Antunez, SIENNA [address] [place] [address] Arrived [facility] Comment on above: Arrived Start: 1965 Screening for malign ant neoplasm of colon [facility] IGP, APT HPV,RFX 16/18,45 IGP, APT HPV,RFX 16/18,45 Lab Routine Screening for malignant neoplasm of cervix Ordered: 08/22/2024 [facility] Work Phone: Comment on above: Ordered: 08/22/2024 End: 11-08-2024 Mumps Antibody, IgG [facility] Comment on above: Once for 1 Occurrenc es starting 11/08/2024 until 11/08/2024 End: 11-08-2024 Rubeola Antibody, IgG [facility] Work Phone: Comment on above: Once for 1 Occurrenc es starting 11/08/2024 until 11/08/2024 End: 11-08-2024 Varicella Zoster Antibody, IgG [facility] Comment on above: Once for 1 Occurrenc es starting 11/08/2024 until 11/08/2024 Payers Date Payer Category Payer Unknown [id number] 2024 Self-pay 2018 [employer] Blue [employer] [id number] 2018 Unknown BCBS BCBS xxxxxx [id number] 2018-Present [phone] [address] [place] [address] [id number] 1965 Unknown [id number] 2.16.840.1.265734.3.579.2.5 93 1965 Unknown [id number] 2.16.840.1.357551.3.579.2.5 93 1965 Unknown [id number] 2.16.840.1.606066.3.579.2.5 93 1965 Unknown [id number] 2.16.840.1.334111.3.579.2.5 93 1965 Unknown [id number] 2.16.840.1.101281.3.579.2.5 93 1965 Unknown [id number] 2.16.840.1.362460.3.579.2.5 93 1965 Unknown [id number] 2.16.840.1.523998.3.579.2.5 93 1965 Unknown [id number] 2.16.840.1.027891.3.579.2.5 93 1965 Unknown [id number] 2.16.840.1.057406.3.579.2.5 93 1965 Unknown [id number] 2.16.840.1.633413.3.579.2.5 93 1965 Unknown [id number] 2.16.840.1.907719.3.579.2.5 93 1965 Unknown [id number] 2.16.840.1.147469.3.579.2.5 93 1965 Unknown [id number] 2.16.840.1.465478.3.579.2.5 93 1965 Unknown [id number] 2.16.840.1.006305.3.579.2.1 73 1965 Unknown [id number] 2.16.840.1.745249.3.579.2.1 259 1965 Unknown [id number] 2.16.840.1.372931.3.579.2.1 259 1965 Unknown [id number] 2.16.840.1.504209.3.579.2.1 259 1965 Unknown [id number] 2.16.840.1.912901.3.579.2.1 259 1965 Unknown [id number] 2.16.840.1.700471.3.579.2.1 259 1965 Unknown [id number] 2.16.840.1.784343.3.579.2.1 259 1965 Unknown [id number] 2.16.840.1.770365.3.579.2.1 259 1965 Unknown [id number] 2.16.840.1.595037.3.579.2.1 259 1959 Unknown [id number] Unknown [id number] 2.16.840.1.431894.3.579.2.5 31 Social History Date Type Detail Facility Start: 08-17-2023 End: 08-19-2024 Tobacco smoking status MAIS Ex-smoker [facility] Start: 09-14-2000 End: 09-14-2015 History of tobacco use Current smoker [facility] Start: 09-14-2000 End: 09-14-2015 History of tobacco use Cigarette Smoker [facility] Start: 08-17-2023 End: 11-09-2024 Cigarettes smoked current (pack per day) - Reported 1 [facility] Start: 08-17-2023 End: 08-19-2024 Tobacco use and exposure Smokeless tobacco non-user [facility] Start: 05-25-2024 End: 11-15-2024 Alcoholic beverage intake Ex-drinker (finding) [facility] Start: 08-18-2023 End: 11-09-2024 Humiliation, Afraid, Rape, and Kick questionnaire [HARK] [facility] Within the last year , have [...] [facility] Start: 08-15-2023 Alcohol Comment Caffeine intake: 1 cup of coffee daily , Soda 1 per day [facility] Start: 1965 Sex assigned at Not on file [facility] Tobacco smoking stat [facility] Tobacco smoking consumption unknown [facility] Clinical Notes 01-28-2022 to 11-15-2024 Bijal Antunez NP - 11/15/2024 4:58 PM Luis Angel Antunez, SIENNA - 11/15/2024 3:00 PM Luis Angel Antunez NP - 11/15/2024 7:25 AM Luis Angel Antunez, SIENNA - 11/15/2024 7:25 AM ESTPatient Instructions Note Date & Type Note Facility 11-15-2024 History of Presen t illness Narrative Associated Problem(s): Postprandial RUQ pain Freq small meals, check GBUS May need HIDA Images from the original note were not included. Wayne Lozada is a 59 y.o. female presents with chief complaint of No chief complaint on file. HPI: Obesity: not taking any GLP 1 med for a few months, she did contact [employer], she can get the medication from the company, they will be sending info for the order. Tolerated GLP 1 in the past no side effects RUQ pain: intermittent, happening more freq, notes after eating greasy food. RUQ and across abd. No NV. Pain can last 4-5 hours. Still has gallbladder Hypertension This is a chronic problem. The current episode started more than 1 year ago. The problem is unchanged. The problem is controlled. Associated symptoms include peripheral edema. Pertinent negatives include no chest pain, headaches, malaise/fatigue, palpitations, PND or shortness of breath. There are no associated agents to hypertension. Risk factors for coronary artery disease include obesity and sedentary lifestyle. Past treatments include ELISABETH inhibitors and diuretics. The current treatment provides significant improvement. There are no compliance problems. There is no history of CAD/PA, heart failure or PVD. Edema Presents with chronic edema. The current episode started more than 1 year ago. The onset of the episode was gradual. These episodes happen throughout the day. The problem presents itself daily. The problem has been waxing and waning. The edema is present on the both side(s). Risk factors for edema include no known risk factors. Associated symptoms include abdominal pain. Pertinent negative symptoms include no chest pain, no cough, no fever, no nausea, no palpitations, no PND and no vomiting. SUBJECTIVE: MEDICATIONS: Current Outpatient Medications Medication Instructions [...] in PM estradiol (ESTRACE) 2 mg, Oral, Daily ferrous sulfate 325 mg, Oral, Daily with breakfast fexofenadine (CONCHIS) 180 mg, Daily hydroCHLOROthiazide (HYDRODIURIL) 25 mg, Oral, 2 times daily PRN levothyroxine (SYNTHROID) 150 mcg, Oral, Daily before breakfast lisinopril 20 mg, Oral, Daily nystatin-triamcinolone (Mycolog II) cream 1 application , Every 12 hours ALLERGIES: No Known Allergies REVIEW OF SYMPTOMS: Review of Systems Constitutional: Negative for appetite change, chills, fever and malaise/fatigue. HENT: Negative for congestion, ear pain and sore throat. Eyes: Negative for pain, discharge, redness and visual disturbance. Respiratory: Negative for cough, shortness of breath and wheezing. Cardiovascular: Positive for leg swelling. Negative for chest pain, palpitations and PND. Gastrointestinal: Positive for abdominal pain. Negative for blood in stool, constipation, diarrhea, nausea and vomiting. Genitourinary: Negative for difficulty urinating, dysuria and frequency. Musculoskeletal: Negative for arthralgias, back pain, joint swelling and myalgias. Skin: [...] Past Medical History: Diagnosis Date Acquired hypothyroidism ([facility]) Allergic rhinitis Anemia iron def,. Asymptomatic microscopic hematuria 08/18/2023 Atopic dermatitis, unspecified type Bilateral lower extremity edema 09/08/2023 Chronic atrophic candidiasis Chronic vulvovaginitis 02/24/2023 Class 3 severe obesity without serious comorbidity in adult ([facility]) 08/20/2023 COVID-19 07/2020 Dyslipidemia ([facility]/HCC) Hammertoe of left foot Hypertension ([facility]) Hypertriglyceridemia ([facility]) Hypertrophic scar Iron deficiency anemia secondary to [...] & stroke/DVT. given for mammogram Morbid obesity ([facility]) Muscle spasm LORENZA on CPAP sleep study [...] and screws. 2nd toe screws HYSTERECTOMY 2017 STA BSO TUBAL LIGATION 1988 family history includes Cancer in her brother, father, maternal grandfather, maternal grandmother, mother, and paternal grandfather; Diabetes in her brother, brother, mother, and sister; Heart disease in her father; Heart failure in her father; Hyperlipidemia in her mother; Hypertension in her brother, brother, father, mother, sister, and sister; Multiple myeloma in her maternal grandmother and mother; Stomach cancer in her maternal grandfather; Thyroid disease in her father, mother, and sister; Uterine cancer in her sister. OBJECTIVE: Visit Vitals BP 120/84 (BP Location: Left arm, Patient Position: Sitting, BP Cuff Size: Large adult) Pulse 86 Temp 98.4 F (Temporal) Resp 18 Ht 5' 7 Wt 281 lb 3.2 oz SpO2 96% BMI 44.04 kg/m OB Status Hysterectomy Smoking Status Former BSA 2.46 m Physical Exam Vitals and nursing note reviewed. Constitutional: General: She is not in acute distress. Appearance: Normal appearance. She is obese. HENT: Head: Normocephalic and atraumatic. Right Ear: [...] sounds: Normal breath sounds. No wheezing or rhonchi. Abdominal: General: Bowel sounds are normal. There is no distension. Palpations: Abdomen is soft. There is no mass. Tenderness: There is no abdominal tenderness (RUQ mild tenderness). There is no guarding. Musculoskeletal: General: Normal range of motion. Cervical back: Normal range of motion and neck supple. Right lower leg: Edema present. Left lower leg: Edema present. Lymphadenopathy: Cervical: No cervical adenopathy. Skin: General: [...] file. Problem List Items Addressed This Visit Acquired hypothyroidism ([facility]/HCC) Current med: levothyroxine Check labs yearly and prn dose change, or changes in symptoms Class 3 severe obesity without serious comorbidity in adult ([facility]) Discussed with patient their BMI (actual, verses recommended). We have also discussed lifestyle modifications: attempts to perform physical activity as chronic conditions allow, also to monitor dietary intake: increasing protein/fruits/veggies and lowering carb intake (unless contraindicated). Limit sodas, juices, and sugary drinks. No currently on any GLP 1 meds Will wait for info to come from [place] Primary hypertension ([facility]) - Primary Please check blood pressure daily and record DASH diet Limit caffeine Take medication as directed Contact office if chest pain, pressure, dizziness, shortness of breath, swelling legs Recommend slow position changes Current meds: hydrochlorothiazide and lisinopril Bilateral lower extremity edema Stable, adjusts the 2nd dose of hydrochlorothiazide when swelling is worse Compression stockings as well Limit sodium, elevate legs when possible Elevated liver function tests Had transient elevation w labs on 09/10/24: AST 60 and ALT 134, recheck on 10/01/24: AST 14, ALT 22 Postprandial RUQ pain Freq small meals, check GBUS May need HIDA Relevant Orders US gallbladder Associated Problem(s): Class 3 severe obesity without serious comorbidity in adult (CMS/[facility]) Discussed with patient their BMI (actual, verses recommended). We have also discussed lifestyle modifications: attempts to perform physical activity as chronic conditions allow, also to monitor dietary intake: increasing protein/fruits/veggies and lowering carb intake (unless contraindicated). Limit sodas, juices, and sugary drinks. No currently on any GLP 1 meds Will wait for info to come from [email or web address] Associated Problem(s): Acquired hypothyroidism (CMS/HCC) Current med: levothyroxine Check labs yearly and prn dose change, or changes in symptoms Associated Problem(s): Bilateral lower extremity edema Stable, adjusts the 2nd dose of hydrochlorothiazide when swelling is worse Compression stockings as well Limit sodium, elevate legs when possible Associated Problem(s): Elevated liver function tests Had transient elevation w labs on 09/10/24: AST 60 and ALT 134, recheck on 10/01/24: AST 14, ALT 22 Associated Problem(s): Primary hypertension (CMS/HCC) Please check blood pressure daily and record DASH diet Limit caffeine Take medication as directed Contact office if chest pain, pressure, dizziness, shortness of breath, swelling legs Recommend slow position changes Current meds: hydrochlorothiazide and lisinopril documented in this encounter [facility] 11-15-2024 Instructions Bijal Antunez NP - 11/15/2024 3:00 PM EST Get me info from [facility] for Zepbound Check gall bladder ultra sound, and I will refax order for mammogram at [facility]; [phone] documented in this encounter [facility] 09-14-2024 Telephone encounter Note Please tell pt [...] weeks to see if still elevated LA [facility] 09-14-2024 Miscellaneous Notes Please tell pt overall [...] still elevated LA documented in this encounter [facility] 08-22-2024 History of Presen t illness Narrative Images from the original note were not included. Klaudia Barakat, Obstetrics and Gynecology Wayne Harper 1965 08/22/24 [id number] Yearly Wellness Exam Chief Complaint Patient presents with Gynecologic Exam LMP: STAH BSO 2017 HRT: Estradiol 2 MG - satisfied. Last pap 08-17-23 neg. Mammograms ordered by PCP at [facility]. Denies breast, urinary, or bowel concerns. [...] costovertebral angle tenderness, no obvious scoliosis/kyphosis. 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 documented in this encounter [facility] 08-17-2024 History of Presen t illness Narrative [...] There is no history of kidney disease, CAD/PA or PVD. Sinusitis The current episode started [...] Past Medical History: Diagnosis Date Acquired hypothyroidism ([facility]) Allergic rhinitis Anemia iron def,. Asymptomatic microscopic hematuria 08/18/2023 Atopic dermatitis, unspecified type Bilateral lower extremity edema 09/08/2023 Chronic atrophic candidiasis Chronic vulvovaginitis 02/24/2023 Class 3 severe obesity without serious comorbidity in adult ([facility]) 08/20/2023 COVID-19 07/2020 Dyslipidemia ([facility]) Hammertoe of left foot Hypertension ([facility]) Hypertriglyceridemia ([facility]) Hypertrophic scar Iron deficiency anemia secondary to [...] loss: Body mass index (BMI) 45.0-49.9, adult ([facility]) Encounter for adult wellness visit - [...] tablet Other Visit Diagnoses Essential (primary) hypertension ([facility]) Relevant Medications lisinopril 20 MG tablet hydroCHLOROthiazide (HYDRODiuril) 25 MG tablet Pure hyperglyceridemia ([facility]) Relevant Medications atorvastatin (Lipitor) 40 MG tablet Associated Problem(s): Encounter for adult wellness visit Reviewed Ht/Wt/BMI Recommend eye exam yearly Recommend dental exams twice a year Balance work/leisure activities Exercises is recommended most days of the week (appropriate as chronic conditions allow) Follow up yearly and prn Associated Problem(s): Class 3 severe obesity without serious comorbidity in adult ([facility]) Discussed with patient their BMI (actual, [...] hydrochlorothiazide and lisinopril documented in this encounter [facility] 08-17-2024 Instructions Bijal Antunez NP - 08/17/2024 3:40 PM EST If not better after atb for sinuses contact office, may use nasal saline irrigation documented in this encounter [facility] 05-25-2024 History of Presen t illness Narrative [...] on PF exerxcises documented in this encounter [facility] 10-14-2022 Note PROCEDURE: XR ANKLE RT [...] authenticated by: MEGAN DANGELO Date: 2022-10-14 11:36 [facility] 10-14-2022 Note PROCEDURE: XR ANKLE RT [...] authenticated by: MEGAN DANGELO Date: 2022-10-14 11:36 [facility] 08-14-2022 Note PROCEDURE: XR FOOT L [...] authenticated by: JOHN MCDONOUGH Date: 2022-08-13 23:22 [facility] 06-03-2022 Note PROCEDURE: XR FOOT L [...] authenticated by: JOHN MCDONOUGH Date: 2022-06-03 16:04 [facility] 03-25-2022 Note PROCEDURE: XR FOOT L [...] by: MEGAN DANGELO Date: 2022-03-25 19:35 [facility] 01-28-2022 Note PROCEDURE: XR FOOT L T [...] change in alignment. Electronically authenticated by: JOHN MCDONUOGH Date: 2022-01-28 14:19 [facility] Evaluation note Diagnosis Primary hypertension (CMS/HCC)- Primary [...] (CMS/HCC)- Primary [facility] Primary hypertension (CMS/HCC)- Primary Unspecified essential hypertension Class 3 severe obesity due to excess calories without serious comorbidity with body mass index (BMI) of 45.0 to 49.9 in adult ([facility]) Acquired hypothyroidism ([facility]/HCC) Unspecified hypothyroidism Rash Rash and other nonspecific skin eruption Primary hypertension (CMS/HCC)- Primary Unspecified essential hypertension Bilateral lower extremity edema Class 3 severe obesity due to excess calories without serious comorbidity with body mass index (BMI) of 45.0 to 49.9 in adult ([facility]) Plantar fasciitis, right- Primary Primary hypertension ([facility]/HCC) Unspecified essential hypertension Class 3 severe obesity due to excess calories without serious comorbidity with body mass index (BMI) of 45.0 to 49.9 in adult ([facility]) Bilateral lower extremity edema Encounter for adult wellness visit- Primary Morbid (severe) obesity due to excess calories ([facility]) Body mass index (BMI) 45.0-49.9, adult ([facility]) Primary hypertension ([facility]) Unspecified essential hypertension Bilateral lower extremity edema Class 3 severe obesity due to excess calories without serious comorbidity with body mass index (BMI) of 45.0 to 49.9 in adult ([facility]) Essential (primary) hypertension ([facility]) Unspecified essential hypertension Pure hyperglyceridemia ([facility] C[facility]) Pure hyperglyceridemia Acute non-recurrent maxillary sinusitis documented in this encounter [facility] HealthcareEvaluation note* Diagnosis Primary hypertension ([facility]/HCC)- Primary Unspecified essential hypertension Class 3 severe obesity due to excess calories without serious comorbidity with body mass index (BMI) of 45.0 to 49.9 in adult ([facility]) Acquired hypothyroidism ([facility]) Unspecified hypothyroidism Rash Rash and other nonspecific skin eruption Primary hypertension ([facility]/HCC)- Primary Unspecified essential hypertension Bilateral lower extremity edema Class 3 severe obesity due to excess calories without serious comorbidity with body mass index (BMI) of 45.0 to 49.9 in adult ([facility]) Plantar fasciitis, right- Primary Primary hypertension ([facility]) Unspecified essential hypertension Class 3 severe obesity due to excess calories without serious comorbidity with body mass index (BMI) of 45.0 to 49.9 in adult ([facility]) Bilateral lower extremity edema Encounter for adult wellness visit- Primary Morbid (severe) obesity due to excess calories ([facility]) Body mass index (BMI) 45.0-49.9, adult ([facility]) Primary hypertension ([facility]/HCC) Unspecified essential hypertension Bilateral lower extremity edema Class 3 severe obesity due to excess calories without serious comorbidity with body mass index (BMI) of 45.0 to 49.9 in adult ([facility]) Essential (primary) hypertension ([facility]/HCC) Unspecified essential hypertension Pure hyperglyceridemia ([facility]/HCC) Pure hyperglyceridemia Acute non-recurrent maxillary sinusitis Encounter for gynecological examination without abnormal finding Screening for malignant neoplasm of cervix Screening for malignant neoplasm of the cervix Breast cancer screening by mammogram Hormone replacement therapy documented in this encounter [facility] HealthcareEvaluation note* Diagnosis Plantar fasciitis, right- Primary Primary hypertension ([facility]) Unspecified essential hypertension Class 3 severe obesity due to excess calories without serious comorbidity with body mass index (BMI) of 45.0 to 49.9 in adult ([facility]) Bilateral lower extremity edema documented in this encounter [facility] HealthcareEvaluation note* Diagnosis Primary hypertension ([facility])- Primary Unspecified essential hypertension Class 3 severe obesity due to excess calories without serious comorbidity with body mass index (BMI) of 45.0 to 49.9 in adult ([facility]) Acquired hypothyroidism ([facility]) Unspecified hypothyroidism Rash Rash and other nonspecific skin eruption Primary hypertension ([facility])- Primary Unspecified essential hypertension Bilateral lower extremity edema Class 3 severe obesity due to excess calories without serious comorbidity with body mass index (BMI) of 45.0 to 49.9 in adult ([facility]) Plantar fasciitis, right- Primary Primary hypertension ([facility]) Unspecified essential hypertension Class 3 severe obesity due to excess calories without serious comorbidity with body mass index (BMI) of 45.0 to 49.9 in adult ([facility]) Bilateral lower extremity edema Encounter for adult wellness visit- Primary Morbid (severe) obesity due to excess calories ([facility]) Body mass index (BMI) 45.0-49.9, adult ([facility]) Primary hypertension ([facility]) Unspecified essential hypertension Bilateral lower extremity edema Class 3 severe obesity due to excess calories without serious comorbidity with body mass index (BMI) of 45.0 to 49.9 in adult ([facility]) Essential (primary) hypertension ([facility]/HCC) Unspecified essential hypertension Pure hyperglyceridemia ([facility]/HCC) Pure hyperglyceridemia Acute non-recurrent maxillary sinusitis Class 3 severe obesity due to excess calories without serious comorbidity with body mass index (BMI) of 40.0 to 44.9 in adult (CMS/HCC)- Primary documented in this encounter [facility] [...] abnormal blood chemistry documented in this encounter [facility] HealthcareEvaluation note* Diagnosis Primary hypertension (CMS/HCC)- [...] (BMI) of 45.0 to 49.9 in adult ([facility]) Bilateral lower extremity edema Encounter for adult wellness visit- Primary Morbid (severe) obesity due to excess calories (CMS/HCC) Body mass index (BMI) 45.0-49.9, adult ([facility]) Primary hypertension (CMS/HCC) Unspecified essential hypertension Bilateral lower extremity edema Class 3 severe obesity due to excess calories without serious comorbidity with body mass index (BMI) of 45.0 to 49.9 in adult ([facility]) Essential (primary) hypertension (CMS/HCC) Unspecified essential hypertension Pure hyperglyceridemia (CMS/HCC) Pure hyperglyceridemia Acute non-recurrent maxillary sinusitis UTI symptoms- Primary documented in this encounter [facility]* Diagnosis Primary hypertension ([facility]/HCC)- Primary Unspecified essential hypertension Class 3 severe obesity due to excess calories without serious comorbidity with body mass index (BMI) of 45.0 to 49.9 in adult ([facility]) Acquired hypothyroidism ([facility]) Unspecified hypothyroidism Rash Rash and other nonspecific skin eruption Primary hypertension (CMS/HCC)- Primary Unspecified essential hypertension Bilateral lower extremity edema Class 3 severe obesity due to excess calories without serious comorbidity with body mass index (BMI) of 45.0 to 49.9 in adult ([facility]) Plantar fasciitis, right- Primary Primary hypertension ([facility]/HCC) Unspecified essential hypertension Class 3 severe obesity due to excess calories without serious comorbidity with body mass index (BMI) of 45.0 to 49.9 in adult ([facility]) Bilateral lower extremity edema Encounter for adult wellness visit- Primary Morbid (severe) obesity due to excess calories (CMS/HCC) Body mass index (BMI) 45.0-49.9, adult ([facility]) Primary hypertension (CMS/HCC) Unspecified essential hypertension Bilateral lower extremity edema Class 3 severe obesity due to excess calories without serious comorbidity with body mass index (BMI) of 45.0 to 49.9 in adult ([facility]) Essential (primary) hypertension (CMS/HCC) Unspecified essential hypertension Pure hyperglyceridemia ([facility]/HCC) Pure hyperglyceridemia Acute non-recurrent maxillary sinusitis Primary hypertension (CMS/HCC)- Primary Unspecified essential hypertension Elevated liver function tests Other abnormal blood chemistry Bilateral lower extremity edema Acquired hypothyroidism (CMS/HCC) Unspecified hypothyroidism Class 3 severe obesity due to excess calories without serious comorbidity with body mass index (BMI) of 40.0 to 44.9 in adult (CMS/[facility]) Postprandial RUQ pain documented in this encounter [facility] Summary [...] pital DATE CREATED AUTHOR AUTHOR'S ORGANIZ ATION 09/14/2024 [facility] DATE CREATED AUTHOR AUTHOR'S ORGANIZ ATION [facility]20[facility] DATE CREATED AUTHOR AUTHOR'S ORGANIZ ATION 11/17/2024 [facility] EPIC Reason for Visit (unrecogniz ed section and content) Reason Onset Date Comments Med Refill 08/07/2024 Reason Comments Hypertension Reason Comments Gynecologic Exam LMP: STAH BSO 2017HR T: Estradiol 2 MG - satisfied. Last pap 08-17-23 neg.Mammograms ordered by PCP at [facility]. Denies breast, urinary, or bowel concerns. Menopause Questions how long t o be on Estradiol. Care Teams (unrecognized sec tion and content) Associate School Psychologist Relationship Specialty Start Date End Date Charan Quinn MD [address] [place] [phone] PCP - General Family Medicine 01/20/24 Bijal Antunez NP [address] [place] [phone] [facility] 12/14/23 Bijal Antunez NP [address] [place] [address] Nurse Practitioner Family Medicine 01/20/24 Associate School Psychologist Relationship Specialty Start Date End Date Charan Quinn MD [address] [place] [phone] PCP - General Family Medicine 01/20/24 Bijal Antunez NP [address] [place] [phone] PCP - [place] [facility] 12/14/23 Bijal Antunez NP [address] [place] [phone] Nurse Practitioner Family Medicine 01/20/24 Associate School Psychologist Relationship Specialty Start Date End Date Charan Quinn MD [address] [place] [phone] PCP - General Family Medicine 01/20/24 Bijal Antunez NP [address] [place] [phone] PCP - [place] 12/14/23 Bijal Antunez NP [address] [place] [phone] Nurse Practitioner Family Medicine 01/20/24 Associate School Psychologist Relationship Specialty Start Date End Date Charan Quinn MD [address] [place] [phone] PCP - General Family Medicine 01/20/24 Bijal Antunez NP [address] [place] [phone] PCP - [place] 12/14/23 Bijal Antunez NP [address] [place] [phone] Nurse Practitioner Family Medicine 01/20/24 Associate School Psychologist Relationship Specialty Start Date End Date Charan Quinn MD [address] [place] [phone] PCP - General Family Medicine 01/20/24 Bijal Antunez NP [address] [place] [phone] PCP - [place] 12/14/23 Bijal Antunez NP [address] [place] [phone] Nurse Practitioner Family Medicine 01/20/24 Associate School Psychologist Relationship Specialty Start Date End Date Charan Quinn MD [address] [place] [phone] PCP - General Family Medicine 01/20/24 Bijal Antunez NP [address] [place] [phone] PCP - [place] 12/14/23 Bijal Antunez NP [address] [place] [address] Nurse Practitioner Family Medicine 01/20/24 Associate School Psychologist Relationship Specialty Start Date End Date Charan Quinn MD [address] [place] [phone] PCP - General Family Medicine 01/20/24 Bijal Antunez NP [address] [place] [phone] PCP - [place] 12/14/23 Bijal Antunez NP [address] [place] [phone] Nurse Practitioner Family Medicine 01/20/24 Associate School Psychologist Relationship Specialty Start Date End Date Charan Quinn MD [address] [place] [phone] PCP - General Family Medicine 01/20/24 Bijal Antunez NP [address] [place] [phone] PCP - [place] 12/14/23 Bijal Antunez NP [address] [place] [phone] Nurse Practitioner Family Medicine 01/20/24 Associate School Psychologist Relationship Specialty Start Date End Date Charan Quinn MD [address] [place] [phone] PCP - General Family Medicine 01/20/24 Bijal Antunez NP [address] [place] [phone] PCP - [place] 12/14/23 Bijal Antunez NP [address] [place] [address] Nurse Practitioner Family Medicine 01/20/24 Associate School Psychologist Relationship Specialty Start Date End Date Charan Quinn MD [address] [place] [phone] PCP - General Family Medicine 01/20/24 Bijal Antunez NP [address] [place] [phone] PCP - [place] 12/14/23 Bijal Antunez NP [address] [place] [phone] Nurse Practitioner Family Medicine 01/20/24 Associate School Psychologist Relationship Specialty Start Date End Date Charan Quinn MD [address] [place] [phone] PCP - General Family Medicine 01/20/24 Bijal Antunez NP [address] [place] [address] PCP - [place] 12/14/23 Bijal Antunez NP [address] [place] [address] Nurse Practitioner Family Medicine 01/20/24 Associate School Psychologist Relationship Specialty Start Date End Date Charan Quinn MD [address] [place] [phone] PCP - General Family Medicine 01/20/24 Bijal Antunez NP [address] [place] [phone] PCP - [facility] 12/14/23 Bijal Antunez NP [address] [place] [address] Nurse Practitioner [facility] 01/20/24 Associate School Psychologist Relationship Specialty Start Date End Date Charan Quinn MD [address] [place] [address] PCP - General Family Medicine 01/20/24 Bijal Antunez NP [address] [place] [phone] [facility] 12/14/23 Bijal Antunez NP [address] [place] [phone] Nurse Practitioner [facility] 01/20/24 FOR RECORDS PERTAINING TO PATIENTS WHO [...] BE BASED ON THE PRIMARY CLINICAL RECORDS. [facility]. provides no warranty or guarantee of the accuracy or completeness of information in this document.
== END 2024-11-19 08:32 | disposition home or self-care (01) ==
LOC: US 08:31
PROVIDERS: PCP Nurse Practitioner; Visit Provider Nurse Practitioner
DX: R10.11 Right upper quadrant pain (principal); K76.0 Fatty (change of) liver, not elsewhere classified; K80.20 Calculus of gallbladder without cholecystitis without obstruction
CPT/HCPCS: 76705

== ENCOUNTER 2025-01-12 13:35 | Outpatient (OUT) | payer BC, SELFPAY ==
--- NOTE | 2025-01-12 13:37 | MM_ITS ---
Patient Name: WAYNE PIERRE MR#: [id number] : 1965 Exam Date: 01/12/2025 Ordering Doctor: DR KLAUDIA BARAKAT RADIOLOGY REPORT PROCEDURE: MM TOMOSYNTHESIS SCREENING BI COMPARISON: MM TOMOSYNTHESIS SCREENING BI, 12/01/2023. MG MAMM SCREEN 3D ISABELLA CAD, 10/28/2022. MG MAMM SCREEN 3D ISABELLA CAD, 10/23/2021. MG MAMM ISABELLA SCRN W CAD DIG, 04/02/2015. INDICATIONS: Screening Calculator Name NCI Breast Cancer Risk Assessment Tool 5 Year Breast Cancer Risk 1.00% Lifetime Breast Cancer Risk 5.50% Personal Breast Cancer No Personal Ovarian Cancer No Treatments None Family Cancers Mother with multiple myeloma cancer at age 74. LOCATION: [facility] BREAST COMPOSITION: There are scattered areas of fibroglandular density. FINDINGS: DIAGNOSTIC CATEGORY 1--NEGATIVE. LEFT BREAST: No significant suspicious finding. RIGHT BREAST: No significant suspicious finding. RECOMMENDATIONS: ROUTINE MAMMOGRAM AND CLINICAL EVALUATION IN 12 MONTHS. PLEASE NOTE: A NORMAL MAMMOGRAM DOES NOT EXCLUDE THE POSSIBILITY OF BREAST CANCER. A CLINICALLY SUSPICIOUS PALPABLE LUMP SHOULD BE BIOPSIED. Dictated by: Zeke Lux DO on 01/12/2025 at 16:20 Approved by: Zeke Lux DO on 01/12/2025 at 16:32
== END 2025-01-12 13:36 | disposition home or self-care (01) ==
LOC: MAMMO 13:35
PROVIDERS: PCP Nurse Practitioner; Visit Provider Obstetrics & Gynecology
DX: Z12.31 Encounter for screening mammogram for malignant neoplasm of breast (principal); Z80.7 Family history of other malignant neoplasms of lymphoid, hematopoietic and related tissues
CPT/HCPCS: 77063; 77067

== ENCOUNTER 2025-03-01 17:50 | Emergency (ER) | payer BC, SELFPAY ==
--- OUTSIDE RECORDS SUMMARY | 2019-07-08 09:15 | XMS_ITS | Continuity of Care Document ---
Author Organization [employer] [facility] Address [address] [place] [address] [place] [address] Phone Care Team Providers Care Grievance Coordinator Name Role Phone Gama Turner MD Unavailable Unavailable Procedures Procedure Date OFFICE/OUTPATIENT VISIT, [facility] PSYCH DIAGNOSTIC EVALUATION PSYCL/NRPSYC TST PHY/QHP [facility] PSYCL/NRPSYC TST PHY/QHP Advance Directives Directive Yes / No Effective Date File Name No Information Encounters Encounter Description Practice Location Reason(s) For Visit Diagnoses Date Provider Providers Copied on Encounter OFFICE/OUTPAT IENT VISIT, [facility] [employer] [facility], [address] [place] [address], [id number], tel:[phone] [facility] No Information Johnny Malloy. [address] [place] [address], [id number], [place]. tel:[phone] Referring Provider: Gama Mckay, [address] [place] [address], [id number] . tel:[phone] PSYCH DIAGNOSTIC EVALUATION [facility] [employer] [facility], [address] [place] [address], [id number], tel:[phone] [facility] No Information No Information Family History Family Member Type Diagnosis Age At Onset No Information Payers Payer name Insurance type Covered green party ID Sara holman(s) Lamberto CALDERA [id number] Social History Type Description Quantity Date Captured Comments Sex Female Smoking Status No Information Chief Complaint And Reason For Visit No Information Reason For Referral Reason For Referral No Information History Of Present Illness Encounter Date Complaint History Of Prese nt Illness No Information Functional Status Date Functional Assessmen t No Information Instructions Date Instruction Additional Infor mation No Information Assessments Type Assessment Date No Information Patient Care Teams Name Effective Dates (start - stop) Status Members No Information
--- OUTSIDE RECORDS SUMMARY | 2025-02-15 08:40 | XMS_ITS | Encounter Summary ---
Author Organization [facility] Address [address] [place] [address] Care Team Providers Care Entry Level Lab Technician Name Role Phone Charan Quinn MD Primary Care Provider [phone] Biajl Antunez NP Unavailable [phone] Bijal Antunez NP Unavailable [phone] Reason for Referral * Consultation (Routine) - Closed Specialty Diagnoses / Procedures Referred By Contrichard t Referred To Contact Dermatology Diagnoses Neoplasm of uncertain behavior Procedures [facility] 60 MINUTES Bijal Antunez NP [address] [place] [address] Phone: tel: fax: Sara Weber [facility] [address] [facility] [address] [address] Phone: tel: fax: Referral ID Status Reason Start Date Expiration Date V isits Requested Visits Authorized [id number] Closed Specialty Services Required 02/15/2025 08/14/2025 1 1 Scheduling Instructions Please schedule in [place] office if possible Reason for Visit * Reason Comments Hypertension Encounter Details Date Type Department Care Team (Late Contact Info) Description 02/15/2025 8:40 AM EDT Office Visit [facility] [address] [place] [phone] Bijal Antunez, [employer] A[employer]LY[employer] [address] [place] [address] Primary hypertension (Primary Dx); Postprandial RUQ pain; Bilateral lower extremity edema; Class 3 severe obesity due to excess calories without serious comorbidity with body mass index (BMI) of 40.0 to 44.9 in adult ([facility]); Mixed hyperlipidemia ; Pure hyperglyceridemia ; Essential (primary) hypertension ; Acquired hypothyroidism ; Other chronic pain; Vitamin D deficiency; Thyroid nodule ; Neoplasm of uncertain behavior Social History Tobacco Use Types Packs/Day Years Used Date Smoking Tobacco: Former Cigarettes 1 15 0 09/14/2000 - 09/14/2015 Smokeless Tobacco: Never Alcohol Use Standard Drinks/Week Comments Not Currently 0 (1 standard drink = 0.6 oz pure alcohol) Caffeine intake: 1 cup of coffee daily , Soda 1 per day B1300 Health Literacy Answer Date Recor ded How often do you need to hav e someone help you when you read instructions, pamphlets, or other written material from your doctor or pharmacy? Never 11/09/2024 Humiliation, Afraid, Rape, and Kick questionnair e Answer Date Recorded Within the last year, have y ou been afraid of your partner or ex-partner? No 08/18/2023 Within the last year, have y ou been humiliated or emotionally abused in other ways by your partner or ex-partner? No Within the last year, have y ou been kicked, hit, slapped, or otherwise physically hurt by your partner or ex-partner? No 08/18/2023 Within the last year, have y ou been raped or forced to have any kind of sexual activity by your partner or ex-partner? No 08/18/2023 Social Connection and Isolation Panel [NHANES] A nswer Date Recorded In a typical week, how many times do you talk on the phone with family, friends, or neighbors? Three times a week 11/09/19 How often do you get togethe r with friends or relatives? Once a week 11/09/2024 How often do you attend chur ch or episcopalian services? 1 to 4 times per year 11/09/2024 Do you belong to any clubs o r organizations such as uatsdin groups, unions, fraternal or athletic groups, or school groups? No 11/09/2024 How often do you attend meet ings of the clubs or organizations you belong to? Never 11/09/2024 Are you , , di vorced, , never , or living with a partner? 11/09/2024 AUDIT-C Answer Date Recorded Q1: How often do you have a drink containing alcohol? Never 11/09/2024 Q2: How many drinks containi ng alcohol do you have on a typical day when you are drinking? Patient does not drink Q3: How often do you have si x or more drinks on one occasion? Never 11/09/2024 Overall Financial Resource Strain (CARDIA) Answe r Date Recorded How hard is it for you to pa y for the very basics like food, housing, medical care, and heating? Not hard at all 11/09/2024 PHQ-2 Answer Date Recorded Patient Health Questionnaire-2 Score 0 08/22/2024 [facility] - Occupational Stress Questionnaire Answer Date Recorded Do you feel stress - tense, restless, nervous, or anxious, or unable to sleep at night because your mind is troubled all the time - these days? Not at all 11/09/2024 Exercise Vital Sign Answer Date Recorde d On average, how many days pe r week do you engage in moderate to strenuous exercise (like a brisk walk)? 3 days 11/09/2024 On average, how many minutes do you engage in exercise at this level? 20 min 11/09/2024 Hunger Vital Sign Answer Date Recorded Within the past 12 months, y ou worried that your food would run out before you got the money to buy more. Never true 11/09/19 Within the past 12 months, t he food you bought just didn't last and you didn't have money to get more. Never true 11/09/2024 PRAPARE - Transportation Answer Date Re corded In the past 12 months, has l ack of transportation kept you from medical appointments or from getting medications? No 10/16 In the past 12 months, has l ack of transportation kept you from meetings, work, or from getting things needed for daily living? No 11/09/2024 Housing Stability Vital Sign Answer Derick e Recorded In the last 12 months, was t here a time when you were not able to pay the mortgage or rent on time? No 08/18/2023 In the last 12 months, how many places have you lived? 1 08/18/2023 In the last 12 months, was t here a time when you did not have a steady place to sleep or slept in a senior living (including now)? No 08/18/2023 Housing Stability Vital Sign Answer Derick e Recorded In the last 12 months, was t here a time when you were not able to pay the mortgage or rent on time? No 11/09/2024 In the past 12 months, how m any times have you moved where you were living? 0 11/09/2024 At any time in the past 12 m [facility], were you homeless or living in a senior living (including now)? No 11/09/2024 Comments No Sex and Gender Information Value Date Recorded Sex Assigned at Not on file Legal Sex Female 7:24 PM EDT Gender Identity Not on file Sexual Orientation Not on file documented as of this encounter Last Filed Vital Signs Vital Sign Reading Time Taken Comments Blood Pressure 120/82 02/15/2025 8:43 AM EDT Pulse 86 02/15/2025 8:43 AM EDT Temperature 36.4 C (97.6 F) 02/15/2025 8:43 AM EDT Respiratory Rate 18 02/15/2025 8:43 AM EDT Oxygen Saturation 95% 02/15/2025 8:43 AM EDT Inhaled Oxygen Concentration - - Weight 123 kg (271 lb 3.2 oz) 02/15/2025 8:43 AM EDT Height - - Body Mass Index 42.48 11/15/2024 3:01 PM EST documented in this encounter Patient Instructions * Patient Instructions* Bijal Antunez NP - 02/15/2025 8:40 AM EDT Thyroid US: [facility] [phone] Dermatology: placed referral Labs: fasting documented in this encounter Progress Notes * Bijal Antunez NP - 02/15/2025 9:08 AM EDTAssociated Problem(s): Neoplasm of uncertain behavior Refer to Derm * Bijal Antunez NP - 02/15/2025 9:08 AM EDTAssociated Problem(s): Thyroid nodule Hx of this no longer follows with ENT Check thyroid US * Bijal Antunez NP - 02/15/2025 9:07 AM EDTAssociated Problem(s): Acquired hypothyroidism Continue levothyroxine Check labs yearly and prn dose change or change in symptoms * Bijal Antunez NP - 02/15/2025 8:40 AM EDT Images from the original note were not included. Arianna Lozada is a 59 y.o. female presents with chief complaint of Hypertension HPI: Hypertension This is a chronic problem. The current episode started more than 1 year ago. The problem is unchanged. The problem is controlled. Associated symptoms include peripheral edema. Pertinent negatives include no chest pain, headaches, orthopnea, palpitations or shortness of breath. There are no associated agents to hypertension. Risk factors for coronary artery disease include dyslipidemia, obesity and sedentary lifestyle. Past treatments include beta blockers. The current treatment provides significant improvement. There is no history of CAD/IA, heart failure or PVD. Identifiable causes of hypertension include a thyroid problem. Thyroid Problem Presents for follow-up visit. Patient reports no anxiety, constipation, diarrhea, hair loss, heat intolerance, hoarse voice, palpitations, tremors or weight gain. The symptoms have been stable. Thereis no history of heart failure. SUBJECTIVE: MEDICATIONS: Current Outpatient Medications Medication Instructions albuterol HFA 90 mcg/act inhaler 2 puffs, Inhalation, Every 4 hours PRN atorvastatin (LIPITOR) 40 mg, Oral, Nightly carvedilol (COREG) 3.125 mg, Oral, 2 times daily with meals cholecalciferol (Vitamin D-3) 25 MCG tablet 1 tablet, Daily clotrimazole-betamethasone (Lotrisone) lotion Topical, 2 times daily cyclobenzaprine (Flexeril) 5 MG tablet 1 tablet, Nightly PRN Elastic Bandages & Supports (JOBST KNEE HIGH COMPRESSION SM) misc 1 Units, Daily estradiol (ESTRACE) 2 mg, Oral, Daily ferrous sulfate 325 mg, Daily with breakfast fexofenadine (KIKE) 180 mg, Daily hydroCHLOROthiazide (HYDRODIURIL) 25 mg, Oral, 2 times daily PRN ibuprofen 800 mg, Oral, 3 times daily PRN levothyroxine (SYNTHROID) 150 mcg, Oral, Daily before breakfast nystatin-triamcinolone (Mycolog II) cream 1 application , Topical, Every 12 hours ALLERGIES: Allergies Allergen Reactions Cisco Inhibitors Angioedema REVIEW OF SYMPTOMS: Review of Systems Constitutional: Negative for appetite change, chills, fever and weight gain. HENT: Negative for congestion, ear pain, hoarse voice and sore throat. Eyes: Negative for pain, discharge, redness and visual disturbance. Respiratory: Negative for cough, shortness of breath and wheezing. Cardiovascular: Positive for leg swelling. Negative for chest pain, palpitations and orthopnea. Gastrointestinal: Negative for abdominal pain, blood in stool, constipation, diarrhea, nausea and vomiting. Genitourinary: Negative for difficulty urinating, dysuria and frequency. Musculoskeletal: Negative for arthralgias, back pain, joint swelling and myalgias. Skin: Negative for rash and wound. Skin lesion Neurological: Negative for dizziness, tremors, seizures, syncope and headaches. Psychiatric/Behavioral: Negative for behavioral problems, self-injury and suicidal ideas. The patient is not nervous/anxious. Hematological: Does not bruise/bleed easily. Endocrine: Negative for heat intolerance, polydipsia, polyphagia and polyuria. Allergic/Immunologic: Negative for [...] CARPAL TUNNEL RELEASE 1992 SECTION, LOW TRANSVERSE 1983 1985 1988 COLONOSCOPY 01/2019 Normal. repeat in [...] in her sister. OBJECTIVE: Visit Vitals BP 120/82 Pulse 86 Temp 97.6 ??F (Temporal) Resp 18 Wt 271 lb 3.2 oz SpO2 95% BMI 42.48 kg/m?? OB Status Hysterectomy Smoking Status Former BSA 2.41 m?? Physical Exam Vitals and nursing note reviewed. [...] Normal pulses. Heart sounds: Normal heart sounds. No murmur heard. Pulmonary: Effort: Pulmonary effort is normal. Breath [...] Edema present. Left lower leg: Edema present. Skin: General: Skin is warm and dry. Capillary Refill: Capillary refill takes 2 to 3 seconds. Findings: Lesion (2 skin lesions left posterior neck: color variation and irregular borders) present. No rash. Neurological: General: No focal deficit present. Mental Status: She is alert and oriented to person, place, and time. Psychiatric: Mood and Affect: Mood normal. Behavior: Behavior normal. Thought Content: Thought content normal. Judgment: Judgment normal. ASSESSMENT AND PLAN: No follow-ups on file. Problem List Items Addressed This Visit Acquired hypothyroidism (CMS/HCC) Continue levothyroxine Check labs yearly and prn dose change or change in symptoms Relevant Medications levothyroxine (Synthroid) 150 MCG tablet Other Relevant Orders TSH T4, free Thyroid nodule (CMS/HCC) Hx of this no longer follows with ENT Check thyroid US Relevant Orders US thyroid Class 3 severe obesity without serious comorbidity in adult Discussed with patient their BMI (actual, verses recommended). We have also discussed lifestyle modifications: attempts to perform physical activity as chronic conditions allow, also to monitor dietary intake: increasing protein/fruits/veggies and lowering carb intake (unless contraindicated). Limit sodas, juices, and sugary drinks. No longer on GLP 1 therapy Primary hypertension (CMS/HCC) Please check blood pressure daily and record DASH diet Limit caffeine Take medication as directed Contact office if chest pain, pressure, dizziness, shortness of breath, swelling legs Recommend slow position changes Hx of angioedema in 2024 while taking lisinopril Current meds: carvedilol Relevant Medications carvedilol (Coreg) 3.125 MG tablet Bilateral lower extremity edema Stable, adjusts the 2nd dose of hydrochlorothiazide when swelling is worse Compression stockings as well Limit sodium, elevate legs when possible Relevant Medications hydroCHLOROthiazide (HYDRODiuril) 25 MG tablet Other chronic pain Relevant Medications cyclobenzaprine (Flexeril) 10 MG tablet Postprandial RUQ pain - Primary GBUS did indicate gall stones present Has not had any episodes of pain since off wegovy Wants to monitor will let me know if worsening sxs Mixed hyperlipidemia (CMS/HCC) On statin therapy Check labs yearly and prn dose changes Relevant Orders Lipid panel Comprehensive metabolic panel Vitamin D deficiency Relevant Medications cholecalciferol (Vitamin D-3) 25 MCG tablet Other Relevant Orders Vitamin D 25 hydroxy Neoplasm of uncertain behavior Refer to Derm Relevant Orders Ambulatory referral to Dermatology Other Visit Diagnoses Pure hyperglyceridemia (CMS/HCC) Relevant Medications atorvastatin (Lipitor) 40 MG tablet Essential (primary) hypertension (CMS/HCC) Relevant Medications hydroCHLOROthiazide (HYDRODiuril) 25 MG tablet * Bijal Antunez NP - 02/15/2025 6:09 AM EDTAssociated Problem(s): Mixed hyperlipidemia On statin therapy Check labs yearly and prn dose changes * Bijal Antunez NP - 02/15/2025 6:07 AM EDTAssociated Problem(s): Class 3 severe obesity without serious comorbidity in adult Discussed with patient their BMI (actual, verses recommended). We have also discussed lifestyle modifications: attempts to perform physical activity as chronic conditions allow, also to monitor dietary intake: increasing protein/fruits/veggies and lowering carb intake (unless contraindicated). Limit sodas, juices, and sugary drinks. No longer on GLP 1 therapy * Bijal Antunez NP - 02/15/2025 6:06 AM EDTAssociated Problem(s): Bilateral lower extremity edema Stable, adjusts the 2nd dose of hydrochlorothiazide when swelling is worse Compression stockings as well Limit sodium, elevate legs when possible * Bijal Antunez NP - 02/15/2025 6:06 AM EDTAssociated Problem(s): Primary hypertension Please check blood pressure daily and record DASH diet Limit caffeine Take medication as directed Contact office if chest pain, pressure, dizziness, shortness of breath, swelling legs Recommend slow position changes Hx of angioedema in 2024 while taking lisinopril Current meds: carvedilol * Bijal Antunez NP - 02/15/2025 6:05 AM EDTAssociated Problem(s): Postprandial RUQ pain GBUS did indicate gall stones present Has not had any episodes of pain since off wegovy Wants to monitor will let me know if worsening sxs documented in this encounter Plan of Treatment Upcoming Encounters Date Type Department Care Team (Late st Contact Info) Description 05/18/2025 8:40 AM EDT Office Visit [facility] [address] [place] [address] Bijal Antunez NP [address] [place] [phone] 02/22/2026 11:10 AM EDT Office Visit [facility] [address] [place] [address] Rose Taylor PA [address] [place] [address] Scheduled Orders Name Type Priority Associated Diagnoses Orde r Schedule Lipid panel Lab Routine Mixed hyperlipidemia Expected: 02/15/2025 (Approximate), Expires: 02/15/2026 Comprehensive metabolic panel Lab Routine Mixed hyperlipidemia Expected: 02/15/2025 (Approximate), Expires: 02/15/2026 TSH Lab Routine Acquired hypothyroidism Expected: 02/15/2025 (Approximate), Expires: 02/15/2026 T4, free Lab Routine Acquired hypothyroidism Expected: 02/15/2025 (Approximate), Expires: 02/15/2026 Vitamin D 25 hydroxy Lab Routine Vitamin D deficiency Expected: 02/15/2025 (Approximate), Expires: 02/15/2026 US thyroid Imaging Routine Thyroid nodule Expected: 02/15/2025 (Approximate), Expires: 02/15/2026 documented as of this encounter Visit Diagnoses Diagnosis Primary hypertension- Primary Unspecified essential hypertension Postprandial RUQ pain Bilateral lower extremity edema Class 3 severe obesity due to excess calories without serious comorbidity with body mass index (BMI) of 40.0 to 44.9 in adult ([facility]) Mixed hyperlipidemia Mixed hyperlipidemia Pure hyperglyceridemia Pure hyperglyceridemia Essential (primary) hypertension Unspecified essential hypertension Acquired hypothyroidism Unspecified hypothyroidism Other chronic pain Vitamin D deficiency Thyroid nodule Nontoxic uninodular goiter 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
--- OUTSIDE RECORDS SUMMARY | 2025-02-23 11:10 | XMS_ITS | Encounter Summary ---
Author Organization [facility] Address [address] [place] [address] Care Team Providers Care Plasterer Helper Name Role Phone Charan Quinn MD Primary Care Provider [phone] Bijal Antunez VICE PRESIDENT OF BRAND MANAGEMENT Unavailable [phone] Bijal Antunez NP Unavailable [phone] Reason for Visit * Reason Comments Skin Check Suspicious Skin Lesion * Consultation (Routine) - Closed Specialty Diagnoses / Procedures Referred By Dhiraj blum Referred To Contact Dermatology Diagnoses Neoplasm of uncertain behavior Procedures [place] OFFICE/OUTPATIENT [facility] 60 MINUTES Bijal Antunez NP [address] [place] [address] Phone: tel: fax: Sara Weber MD [address] [place] [address] Phone: tel: fax: Referral ID Status Reason Start Date Expiration Date V isits Requested Visits Authorized [id number] Closed Specialty Services Required 02/15/2025 08/14/2025 1 1 Encounter Details Date Type Department Care Team (Late st Contact Info) Description 02/23/2025 11:10 AM EDT Office Visit [facility] [address] [place] [address] Rose Taylor PA [address] [place] [phone] Melanocytic nevus of upper extremity, unspecified laterality (Primary Dx); Melanocytic nevus of face, other location; Melanocytic nevus of trunk; Lentigo simplex; Seborrheic keratosis; Acrochordon Social History Tobacco Use Types Packs/Day Years [...] 11/09/2024 How often do you attend chur or taoist services? 1 to 4 times per year 11/09/2024 Do you belong to any clubs o r organizations such as pentecostal groups, unions, fraternal or athletic groups, or [...] Recorded Patient Health Questionnaire-2 Score 0 08/22/2024 [facility] - Occupational Stress [...] money to buy more. Never true 11/09/19 25 Within the past 12 months, t he [...] place to sleep or slept in a fdc (including now)? No 08/18/2023 Housing Stability Vital Sign Answer Derick e Recorded In the last 12 months, was t here a time when you were not able to pay the mortgage or rent on time? No 11/09/2024 In the past 12 months, how m any times have you moved where you were living? 0 11/09/2024 At any time in the past 12 m [facility], were you homeless or living in a fdc (including now)? No 11/09/2024 Comments No Sex and Gender Information Value Date Recorded Sex Assigned at Not on file Legal Sex Female 7:24 PM EDT Gender Identity Not on file Sexual Orientation Not on file documented as of this encounter Progress Notes * ASHLEE Valle - 02/23/2025 11:10 AM EDT Skin Check Location: Patient requests a skin examination from the waist up Dermatologic history: no history of skin cancer, no history of atypical moles, no family history ofmelanoma Last visit: 25 years ago New patient, referred by Bijal Antunez NP Lesions: Location: back Duration: years Quality: denies pain, denies itch, denies bleeding Modifying factors: none Associated symptoms: denies any change in color or size Treatments: none All pertinent medical history, medications, and allergies were reviewed. General Exam: alert, oriented to person, place, and time, normal affect, well appearing Unaccompanied A complete skin exam was offered, pt declined. Areas not examined despite medical recommendation: From the waist down Scalp, Examined Head, Face Examined Neck Examined Chest Examined Back Examined Abdomen Examined Right arm Examined Left arm Examined Hands Examined Digits,nails: Examined Patient wearing nail surinamese, Denies dark streaks under finger nails Lymphatics: Not examined Skin Exam 1. MELANOCYTIC NEVUS OF UPPER EXTREMITY, UNSPECIFIED LATERALITY Generalized Scattered benign appearing, regular brown to light brown melanocytic papules and macules with similar morphology Counseled regarding these benign growths. Rarely, a nevus can develop into malignant melanoma, so any changing nevi should be promptly re-evaluated. 2. MELANOCYTIC NEVUS OF FACE, OTHER LOCATION Head - Anterior (Face) Scattered benign appearing, regular brown to light brown melanocytic papules and macules with similar morphology Counseled regarding these benign growths. Rarely, a nevus can develop into malignant melanoma, so any changing nevi should be promptly re-evaluated. 3. MELANOCYTIC NEVUS OF TRUNK Generalized Scattered benign appearing, regular brown to light brown melanocytic papules and macules with similar morphology Counseled regarding these benign growths. Rarely, a nevus can develop into malignant melanoma, so any changing nevi should be promptly re-evaluated. 4. LENTIGO SIMPLEX Head - Anterior (Face) Scattered jesus macules in sun-exposed areas. The patient was informed that lentigines are benign pigmented lesions that occur on sun-exposed andsun-damaged skin. No treatment is necessary. Recommended regular use of broad spectrum sunscreen SPF 30 or higher 5. SEBORRHEIC KERATOSIS (3) Head - Anterior (Face), Neck - Anterior, Torso - Posterior (Back) Stuck on verrucous, jesus-brown papules and plaques. Patient was counseled regarding these benign growths. Removal is normally not necessary, but they may be removed if they are symptomatic or for cosmetic reasons. 6. ACROCHORDON Left Breast Fleshy, skin-colored sessile and pedunculated papules. The patient was informed that skin tags are benign growths usually found around the neck or in the axillae. No treatment is necessary, but at times they can get caught on jewelry or clothing or become inflamed. Skin tags can be removed with scissors or liquid nitrogen. Next Visit: Recommended yearly skin exams documented in this encounter Plan of Treatment Upcoming Encounters Date Type Department Care Team (Late st Contact Info) Description 05/18/2025 8:40 AM EDT Office Visit [facility] [address] [place] [address] Bijal Antunez NP [address] [place] [address] 02/22/2026 11:10 AM EDT Office Visit [facility] [address] [place] [address] Rose Taylor PA [address] [place] [address] documented as of this encounter Visit Diagnoses Diagnosis Melanocytic nevus of upper extremity, unspecified laterality- Primary Melanocytic nevus of face, other location Melanocytic nevus of trunk Benign neoplasm of skin of trunk, except scrotum Lentigo simplex Other dyschromia Seborrheic keratosis Acrochordon Unspecified hypertrophic and atrophic condition of skin documented in this encounter Care Teams Plasterer Helper Relationship Specialty Start Date End Date Charan Quinn MD [address] [place] [phone] PCP - General Family Medicine 01/20/24 Bijal Antunez NP [address] [place] [phone] PCP - [facility] 12/14/23 Bijal Antunez NP [address] [place] [place] [phone] Nurse Practitioner Family Medicine 01/20/24 documented as of this encounter
--- OUTSIDE RECORDS SUMMARY | 2025-03-01 17:56 | XMS_ITS | Clinical Summary ---
Author Organization [facility] Address [address] [place] [address] Care Team Providers Care Supervisor Hanging And Trimming Name Role Phone Charan Quinn MD Primary Care Provider [phone] AicBijal kaiser CALL BOX WIRER Unavailable [phone] Bijal Antunez CALL BOX WIRER Unavailable [phone] Allergies Active Allergy Reactions Criticality Noted Date Comments Cisco Inhibitors Angioedema 12/30/2024 Medications ferrous sulfate 325 (65 Fe) MG tablet Take 325 mg by mouth in the morning. Take with meals. Active Elastic Bandages & Supports (JOBST KNEE HIGH COMPRESSION SM) misc 1 Units in the morning. Jobst UltraSheer 20-30 mmHg Large - knee high compression hose. On in AM off in PM. Active fexofenadine (Conchis) 180 MG tablet Take 180 mg by mouth in the morning. Active albuterol HFA 90 mcg/act inhalerIndications: Wheezing Inhale 2 puffs every 4 (four) hours if needed for wheezing 18 g 2 024 Active estradiol (Estrace) 2 MG tabletIndications:H ormone replacement therapy Take 1 tablet (2 mg) by mouth Daily 90 tablet 3 024 Active nystatin-triamcinol one (Mycolog II) creamIndications:Ra sh Apply 1 application topically every 12 (twelve) hours 15 g 3 025 Active ibuprofen 800 MG tabletIndications:O ther chronic pain Take 1 tablet (800 mg) by mouth 3 (three) times a day as needed for moderate pain 90 tablet 1 025 2024 Active atorvastatin (Lipitor) 40 MG tabletIndications:P ure hyperglyceridemia Take 1 tablet (40 mg) by mouth at bedtime 90 tablet 1 025 2024 Active carvedilol (Coreg) 3.125 MG tabletIndications:P rimary hypertension Take 1 tablet (3.125 mg) by mouth in the morning and 1 tablet (3.125 mg) in the evening. Take with meals. 180 tablet 1 025 2024 Active cholecalciferol (Vitamin D-3) 25 MCG tabletIndications:V itamin D deficiency Take 1 tablet (25 mcg) by mouth Daily Take 1 tablet by mouth Daily 90 tablet 1 025 2024 Active cyclobenzaprine (Flexeril) 10 MG tabletIndications:O ther chronic pain Take 1 tablet (10 mg) by mouth as needed at bedtime for muscle spasms 90 tablet 1 025 2024 Active hydroCHLOROthiazide (HYDRODiuril) 25 MG tabletIndications:B ilateral lower extremity edema,Essential (primary) hypertension Take 1 tablet (25 mg) by mouth 2 (two) times a day as needed (swelling) 180 tablet 1 025 2024 Active levothyroxine (Synthroid) 150 MCG tabletIndications:A cquired hypothyroidism Take 1 tablet (150 mcg) by mouth in the morning. Take before meals. 90 tablet 1 025 2024 Active cyclobenzaprine (Flexeril) 5 MG tablet Take 1 tablet by mouth as needed at bedtime for muscle spasms 2024 Discontinued(R eorder) cholecalciferol (Vitamin D-3) 25 MCG tablet Take 1 tablet by mouth Daily 2024 Discontinued(R eorder) levothyroxine (Synthroid) 150 MCG tabletIndications:A cquired hypothyroidism Take 1 tablet (150 mcg) by mouth in the morning. Take before meals. 90 tablet 3 024 2024 Discontinued(R eorder) ibuprofen 800 MG tabletIndications:O ther chronic pain Take 1 tablet (800 mg) by mouth 3 (three) times a day as needed for moderate pain 90 tablet 1 024 2024 Discontinued hydroCHLOROthiazide (HYDRODiuril) 25 MG tabletIndications:B ilateral lower extremity edema,Essential (primary) hypertension Take 1 tablet (25 mg) by mouth 2 (two) times a day as needed (swelling) 180 tablet 1 024 2024 Discontinued(R eorder) atorvastatin (Lipitor) 40 MG tabletIndications:P ure hyperglyceridemia Take 1 tablet (40 mg) by mouth at bedtime 90 tablet 1 024 2024 Discontinued(R eorder) carvedilol (Coreg) 3.125 MG tabletIndications:P rimary hypertension Take 1 tablet (3.125 mg) by mouth in the morning and 1 tablet (3.125 mg) in the evening. Take with meals. 60 tablet 1 025 2024 Discontinued(R eorder) clotrimazole-betame thasone (Lotrisone) lotionIndications:R antwon and other nonspecific skin eruption Apply topically in the morning and before bedtime. Do all this for 7 days. 30 mL 025 2024 Active Problems Problem Noted Date Diagnosed Date Mixed hyperlipidemia 02/15/2025 Assessment & Plan (02/15/2025 6:09 AM EDT): On statin therapy Check labs yearly and prn dose changes Vitamin D deficiency 02/15/2025 Neoplasm of uncertain behavior 02/15/2025 Assessment & Plan (02/15/2025 9:08 AM EDT): Refer to Derm Postprandial RUQ pain 11/15/2024 Assessment & Plan (02/15/2025 9:00 AM EDT): GBUS did indicate gall stones present Has not had any episodes of pain since off wegovy Wants to monitor will let me know if worsening sxs Assessment & Plan (11/15/2024 4:58 PM EST): Freq small meals, check GBUS May need HIDA Elevated liver function tests 09/14/2024 Assessment & Plan (11/15/2024 7:24 AM EST): Had transient elevation w labs on 09/10/24: AST 60 and ALT 134, recheck on 10/01/24: AST 14, ALT 22 Body mass index (BMI) 45.0-49.9, adult Encounter for adult wellness visit 08/17/2024 Assessment & Plan (08/17/2024 7:47 AM EST): Reviewed Ht/Wt/BMI Recommend eye exam yearly Recommend dental exams twice a year Balance work/leisure activities Exercises is recommended most days of the week (appropriate as chronic conditions allow) Follow up yearly and prn Other chronic pain 08/08/2024 Plantar fasciitis, right 05/25/2024 Assessment & Plan (05/25/2024 4:56 PM EDT): Is established with Lacie, I have discussed what I believe the diagnosis is, she can use ibuprofen as directed She will call podiatry to schedule and also hand out given on PF exerxcises Rash 01/20/2024 Assessment & Plan (01/20/2024 1:56 PM EDT): FA rash, thinks possible related to dog, who has yeast on paws that they treat Call if not better As it applies to her hands: possible eczema will call when breaks out again no treatment at this time Primary hypertension 09/08/2023 Assessment & Plan (02/15/2025 6:06 AM EDT): Please check blood pressure daily and record DASH diet Limit caffeine Take medication as directed Contact office if chest pain, pressure, dizziness, shortness of breath, swelling legs Recommend slow position changes Hx of angioedema in 2024 while taking lisinopril Current meds: carvedilol Assessment & Plan (12/30/2024 11:59 AM EDT): Lisinopril discontinued d/t episode of angioedema in 01/06 Stop lisinopril, will trial Assessment & Plan (11/15/2024 7:23 AM EST): Please check blood pressure daily and record DASH diet Limit caffeine Take medication as directed Contact office if chest pain, pressure, dizziness, shortness of breath, swelling legs Recommend slow position changes Current meds: hydrochlorothiazide and lisinopril Assessment & Plan (08/17/2024 7:43 AM EST): Please check blood pressure daily and record DASH diet Limit caffeine Take medication as directed Contact office if chest pain, pressure, dizziness, shortness of breath, swelling legs Recommend slow position changes Current meds: hydrochlorothiazide and lisinopril Assessment & Plan (05/25/2024 4:53 PM EDT): Stable today no changes Assessment & Plan (03/22/2024 4:28 PM EDT): Stable today no changes Assessment & Plan (01/20/2024 1:22 PM EDT): At goal, no changes in doses of meds Fu in 6 months Bilateral lower extremity edema 09/08/2023 Assessment & Plan (02/15/2025 6:06 AM EDT): Stable, adjusts the 2nd dose of hydrochlorothiazide when swelling is worse Compression stockings as well Limit sodium, elevate legs when possible Assessment & Plan (11/15/2024 7:25 AM EST): Stable, adjusts the 2nd dose of hydrochlorothiazide when swelling is worse Compression stockings as well Limit sodium, elevate legs when possible Assessment & Plan (08/17/2024 7:43 AM EST): Stable, adjusts the 2nd dose of hydrochlorothiazide when swelling is worse Compression stockings as well Assessment & Plan (05/25/2024 4:53 PM EDT): Stable, adjusts the 2nd dose of hydrochlorothiazide when swelling is worse Assessment & Plan (03/22/2024 4:28 PM EDT): stable Class 3 severe obesity without serious comorbidi ty in adult 08/20/2023 Assessment & Plan (02/15/2025 9:01 AM EDT): Discussed with patient their BMI (actual, verses recommended). We have also discussed lifestyle modifications: attempts to perform physical activity as chronic conditions allow, also to monitor dietary intake: increasing protein/fruits/veggies and lowering carb intake (unless contraindicated). Limit sodas, juices, and sugary drinks. No longer on GLP 1 therapy Assessment & Plan (11/15/2024 4:59 PM EST): Discussed with patient their BMI (actual, verses recommended). We have also discussed lifestyle modifications: attempts to perform physical activity as chronic conditions allow, also to monitor dietary intake: increasing protein/fruits/veggies and lowering carb intake (unless contraindicated). Limit sodas, juices, and sugary drinks. No currently on any GLP 1 meds Will wait for info to come from [email or web address] Assessment & Plan (08/17/2024 4:10 PM EST): Discussed with patient their BMI (actual, verses [...] months, is now on max dose wegovy Assessment & Plan (05/25/2024 4:54 PM EDT): Cont wegovy, increase to 1mg for 4 weeks then 2.4mg Fu in 8 weeks Assessment & Plan (03/22/2024 4:29 PM EDT): Cont wegovy, increase to 1mg for 4 weeks then 1.5mg Fu in 8 weeks Assessment & Plan (01/20/2024 1:43 PM EDT): No adipex at this time, unable to restart til 04/06 After discussion with pt we will trial saxenda or wegovy No contraindications Fu in 2 months Asymptomatic microscopic hematuria 08/18/2023 Overview (08/18/2023): UA on 08/16/23 +RBC, will repeat urine in 3 weeks Acquired hypothyroidism 02/24/2023 Assessment & Plan (02/15/2025 9:07 AM EDT): Continue levothyroxine Check labs yearly and prn dose change or change in symptoms Assessment & Plan (11/15/2024 7:25 AM EST): Current med: levothyroxine Check labs yearly and prn dose change, or changes in symptoms Assessment & Plan (01/20/2024 1:26 PM EDT): Cont meds Multinodular goiter 02/24/2023 Thyroid nodule 02/24/2023 Assessment & Plan (02/15/2025 9:08 AM EDT): Hx of this no longer follows with ENT Check thyroid US Resolved Problems Problem Noted Date Diagnosed Date Resolved Date UTI symptoms 09/19/2024 11/15/2024 Morbid (severe) obesity due to excess calories 08/17/2024 08/17/2024 Assessment & Plan (08/17/2024 7:44 AM EST): Discussed with patient their BMI (actual, verses recommended). We have also discussed lifestyle modifications: attempts to perform physical activity as chronic conditions allow, also to monitor dietary intake: increasing protein/fruits/veggies and lowering carb intake (unless contraindicated). Limit sodas, juices, and sugary drinks. Currently taking Wegovy has been on this : Total weight loss: Acute non-recurrent maxillary sinusitis 08/17/2024 11/15/2024 Assessment & Plan (08/17/2024 4:10 PM EST): Fluids, rest, atb Fu if not better Acute non-recurrent frontal sinusitis 08/17/2024 08/17/2024 URI, acute 04/14/2024 04/14/2024 Chest congestion 04/14/2024 04/14/2024 Headache 04/14/2024 04/14/2024 Viral upper respiratory tract infection 11/09/2023 05/25/2024 Chronic vulvovaginitis 02/24/202302/24 Difficulty walking 02/24/2023 Encounters Date Type Department Care Team Description 02/23/2025 11:10 AM EDT Office Visit [facility] [address] [place] [address] Rose Taylor PA Melanocytic nevus of upper extremity, unspecified laterality (Primary Dx); Melanocytic nevus of face, other location; Melanocytic nevus of trunk; Lentigo simplex; Seborrheic keratosis; Acrochordon 02/23/2025 Bamboo flowsheet [facility] [address] [place] [address] Rose Taylor PA 02/23/2025 Travel 02/21/2025 Travel 02/15/2025 8:40 AM EDT Office Visit [facility] [address] [place] [address] Bijal Antunez NP Primary hypertension (Primary Dx); Postprandial RUQ pain; Bilateral lower extremity edema; Class 3 severe obesity due to excess calories without serious comorbidity with body mass index (BMI) of 40.0 to 44.9 in adult ([facility]); Mixed hyperlipidemia ; Pure hyperglyceridemia ; Essential (primary) hypertension ; Acquired hypothyroidism ; Other chronic pain; Vitamin D deficiency; Thyroid nodule ; Neoplasm of uncertain behavior 02/15/2025 Bamboo flowsheet [facility] [address] [place] [address] Bijal Antunez NP 02/15/2025 Travel 02/08/2025 Refill [facility] [address] [place] [phone] Bijal Antunez NP Rash and other nonspecific skin eruption 02/05/2025 Refill [facility] [address] [place] [phone] Bijal Antunez NP Other chronic pain 01/12/2025 Clinisync Result Encounter [facility] Department Unsolicited Klaudia Pittman DO 12/30/2024 Refill [facility] [address] [place] [phone] Bijal Antunez NP Primary hypertension (Primary Dx) 12/29/2024 Telephone [facility] [address] [place] [address] Bijal Antunez NP from Last 3 Months Family History Medical History Relation Name Comments Cancer Brother 1 Ag Diabetes Brother 1 Ag Hypertension Brother 1 Ag Diabetes Brother 2 Johnathan Hypertension Brother 2 Johnathan Cancer Father Ag Heart disease Father Ag Heart failure Father Ag Hypertension Father Ag Thyroid disease Father Ag Cancer Maternal Grandfather Tre Stomach cancer Maternal Grandfather Tre Cancer Maternal Grandmother Amanda Multiple myeloma Maternal Grandmother Amanda Cancer Mother June Diabetes Mother June Hyperlipidemia Mother June Hypertension Mother June Multiple myeloma Mother June Thyroid disease Mother June Cancer Paternal Grandfather Tristin Diabetes Sister 1 Mary Hypertension Sister 1 Mary Uterine cancer Sister 2 Hypertension Sister 3 Mandy Thyroid disease Sister 3 Mandy Melanoma Neg Hx Relation Name Status Comments Brother 1 Ag Brother 2 Johnathan Father Ag Maternal Grandfather Tre Maternal Grandmother Amanda Mother June Alive Paternal Grandfather Tristin Sister 1 Mary Sister 2 Sister 3 Mandy Social History Tobacco Use Types Packs/Day Years Used Date Smoking Tobacco: Former Cigarettes 1 15 0 09/14/2000 - 09/14/2015 Smokeless Tobacco: Never Tobacco Cessation:Counseling Given: Not Answered Alcohol Use Standard Drinks/Week Comments Not Currently [...] often do you attend chur ch or taoist services? 1 to 4 times [...] Recorded Patient Health Questionnaire-2 Score 0 08/22/2024 [facility] Occupational Stress Questionnaire Answer Date Recorded [...] place to sleep or slept in a fci (including now)? No 08/18/2023 Housing Stability Vital Sign Answer Derick e Recorded In the last 12 months, was t here a time when you were not able to pay the mortgage or rent on time? No 11/09/2024 In the past 12 months, how m any times have you moved where you were living? 0 11/09/2024 At any time in the past 12 m [facility], were you homeless or living in a fci (including now)? No 11/09/2024 Comments No Sex and Gender Information Value Date Recorded Sex Assigned at Not on file Legal Sex Female 7:24 PM EDT Gender Identity Not on file Sexual Orientation Not on file Last Filed Vital Signs Vital Sign Reading Time Taken Comments Blood Pressure 120/82 02/15/2025 8:43 AM EDT Pulse 86 02/15/2025 8:43 AM EDT Temperature 36.4 C (97.6 F) 02/15/2025 8:43 AM EDT Respiratory Rate 18 02/15/2025 8:43 AM EDT Oxygen Saturation 95% 02/15/2025 8:43 AM EDT Inhaled Oxygen Concentration - - Weight 123 kg (271 lb 3.2 oz) 02/15/2025 8:43 AM EDT Height 170.2 cm (5' 7 ) 11/15/2024 3:01 PM EST Body Mass Index 42.48 11/15/2024 3:01 PM EST Plan of Treatment Upcoming Encounters Date Type Department Care Team (Late st Contact Info) Description 05/18/2025 8:40 AM EDT Office Visit [facility] [address] [place] [address] Bijal Antunez NP [address] [place] [address] 02/22/2026 11:10 AM EDT Office Visit [facility] [address] [place] [address] Rose Taylor PA [address] [place] [address] Health Maintenance Due Date Last Done Comments CT Colonography 1965 FIT-DNA 1965 FIT 1965 FOBT 1965 Sigmoidoscopy 1965 Mammogram 01/12/2026 01/12/2025, 11/13, 12/01/2023, Additional history exists Colonoscopy 01/12/2029 01/12/2019 Colorectal Cancer Screening 01/12/2029 Pap Smear Discontinued 08/17/2023, 08/12/2022 Cervical Cancer Screening Discontinued HPV/Cotest Discontinued 08/22/2024 Influenza Vaccine Discontinued Procedures Procedure Name Priority Date/Time Associated Diagnosis Comments MM TOMOSYNTHESIS SCREENING BI 01/12/2025 4:32 PM EDT IGP, APT HPV,RFX 16/18,45 Routine 08/22/2024 12:00 AM EST Screening for malignant neoplasm of cervix THINPREP TIS PAP AND HPV MRNA E6/E7 WITH REFLEX TO HPV 16,18/45 Routine 08/17/2023 3:01 PM EST Screening for malignant neoplasm of cervix from Last 3 Months or Most Recently Relevant to Health Maintenance Results * MM TOMOSYNTHESIS SCREENING BI (01/12/2025 4:32 PM EDT) Anatomical Region Laterality Modality Other 01/12/2025 4:32 PM EDT Narrative 01/12/2025 4:33 [place] [address] Mammography Report Signed Patient: WAYNE LOZADA MR#: [id number] : 1965 Acct:[id number] Age/Sex: 59 / F ADM Date: 01/12/25 Loc: MAMMO Attending Dr: KLAUDIA PITTMAN Ordering Physician: KLAUDIA PITTMAN Results: Date of Service: 01/12/25 Follow Up: Procedure(s): MM tomosynthesis screening BI Accession Number(s): [id number] cc: Bijal Antunez CALL BOX WIRER; KLAUDIA PITTMAN Patient Name: WAYNE LOZADA MR#: [id number] : 1965 Exam Date: 01/12/2025 Ordering Doctor: DR KLAUDIA PITTMAN RADIOLOGY REPORT PROCEDURE: MM TOMOSYNTHESIS SCREENING BI COMPARISON: MM TOMOSYNTHESIS SCREENING BI, 12/01/2023. MG MAMM SCREEN 3D ISABELLA CAD, 10/28/2022. MG MAMM SCREEN 3D ISABELLA CAD, 10/23/2021. MG MAMM ISABELLA SCRN W CAD DIG, 04/02/2015. INDICATIONS: Screening Calculator Name NCI Breast Cancer Risk Assessment Tool 5 Year Breast Cancer Risk 1.00% Lifetime Breast Cancer Risk 5.50% Personal Breast Cancer No Personal Ovarian Cancer No Treatments None Family Cancers Mother with multiple myeloma cancer at age 74. LOCATION: [facility] BREAST COMPOSITION: There are scattered areas of fibroglandular density. FINDINGS: DIAGNOSTIC CATEGORY 1--NEGATIVE. LEFT BREAST: No significant suspicious finding. RIGHT BREAST: No significant suspicious finding. RECOMMENDATIONS: ROUTINE MAMMOGRAM AND CLINICAL EVALUATION IN 12 MONTHS. PLEASE NOTE: A NORMAL MAMMOGRAM DOES NOT EXCLUDE THE POSSIBILITY OF BREAST CANCER. A CLINICALLY SUSPICIOUS PALPABLE LUMP SHOULD BE BIOPSIED. Dictated by: Zeke Lux DO on 01/12/2025 at 16:20 Approved by: Zeke Lux DO on 01/12/2025 at 16:32 Dictated By: Zeke Lux M.D. Signed By: 01/12/25 1633 DD/ 1632 TD/TT: Screen Door Maker: Procedure Note Radiology, Radiologist, MD - 01/12/2025 [place] [address] Mammography Report Signed Patient: WAYNE LOZADA KMR#: [id number] : 1965Acct:[id number] Age/Sex: 59 / FADM Date: 01/12/25 Loc: MAMMO Attending Dr: KLAUDIA PITTMAN Ordering Physician: KLAUDIA PITTMANResults: Date of Service: 01/12/25Follow Up: Procedure(s): MM tomosynthesis screening BI Accession Number(s): [id number] cc: Bijal Antunez CALL BOX WIRER; KLAUDIA PITTMAN Patient Name: WAYNE LOZADA MR#: [id number] : 1965 Exam Date: 01/12/2025 Ordering Doctor: DR KLAUDIA PITTMAN RADIOLOGY REPORT PROCEDURE: MM TOMOSYNTHESIS SCREENING BI COMPARISON: MM TOMOSYNTHESIS SCREENING BI, 12/01/2023. MG MAMM [id number] ISABELLA CAD, 10/28/2022. MG MAMM SCREEN 3D ISABELLA CAD, 10/23/2021. MG MAMM BILSCRN W CAD DIG, 04/02/2015. INDICATIONS: Screening Calculator Name NCI Breast Cancer Risk Assessment Tool 5 Year Breast Cancer Risk 1.00% Lifetime Breast Cancer Risk 5.50% Personal Breast Cancer No Personal Ovarian Cancer No Treatments None Family Cancers Mother with multiple myeloma cancer at age 74. LOCATION: [facility] BREAST COMPOSITION: There are scattered areas of fibroglandulardensity. FINDINGS: DIAGNOSTIC CATEGORY 1--NEGATIVE. LEFT BREAST: No significant suspicious finding. RIGHT BREAST: No significant suspicious finding. RECOMMENDATIONS: ROUTINE MAMMOGRAM AND CLINICAL EVALUATION IN 12 MONTHS. PLEASE NOTE: A NORMAL MAMMOGRAM DOES NOT EXCLUDE THE POSSIBILITY OFBREAST CANCER. A CLINICALLY SUSPICIOUS PALPABLE LUMP SHOULD BE BIOPSIED. Dictated by: Zeke Lux DO on 01/12/2025 at 16:20 Approved by: Zeke Lux DO on 01/12/2025 at 16:32 Dictated By: Zeke Lux M.D. Signed By:01/12/25 1633 DD/ 1632 TD/TT: Screen Door Maker: Klaudia Pittman DO [facility] Final Resu lt * IGP, APT HPV,RFX 16/18,45 (08/22/2024 12:00 AM EST) Diagnosis: Comment [facility] Comment:NEGATIVE FOR INTRAEP ITHELIAL LESION OR MALIGNANCY. Specimen Adequacy: Comment [facility] Comment: Satisfactory for evaluation. Endocervical and/or squamous metaplastic cells (endocervical component) are present. Clinician Provided ICD10: Comment [facility] Comment:Z12.4 Performed By: Comment [facility] Comment:Sammy Fofana totechnologist (ASCP) Cyto Comments . [facility] Note: Comment [facility] Comment: The Pap smear is a screening test designed to aid in the detection of premalignant and malignant conditions of the uterine cervix. It is not a diagnostic procedure and should not be used as the sole means of detecting cervical cancer. Both false-positive and false-negative reports do occur. Test Methodology: Comment [facility] Comment: This liquid based ThinPrep(R) pap test was screened with the use of an image guided system. HPV Aptima Negative Negative [facility] Comment: This nucleic acid amplification test detects fourteen high-risk HPV types (16,18,31,33,35,39,45,51,52,56,58,59,66,68) without differentiation. Swab 08/22/2024 08/23/2024 Narrative [facility] - 08/26/2024 3:06 PM EST Performed at: - [facility] [id number] Marble Installer: Vielka Stanley MD, Phone: [phone] Performed at: 02 - [facility], [place] [id number] Marble Installer: Vielka Stanley MD, Phone: [phone] Specimen Comment: [id number] Specimen Comment: No. of containers..01 ThinPrep Vial Klaudia Pittman DO LAB BLOOD ORDERABLES Final R esult [facility] * THINPREP TIS PAP AND HPV MRNA E6/E7 WITH REFLEX TO HPV 16,18/45 (08/17/2023 3:01 PM EST) CLINICAL INFORMATION [facility] Comment:None given LMP [facility] Comment:STAH BSO 2017 PREV. PAP [facility] Comment:NEG HRT PREV. BX [facility] Comment:NONE GIVEN SOURCE [facility] Comment:None given STATEMENT OF ADEQUACY [facility] Comment: Satisfactory for evaluation. Endocervical/transformation zone component present. INTERPRETATION/RESU LT [facility] Comment: Cytology Results: Negative for intraepithelial lesion or malignancy. Glandular cells status post hysterectomy COMMENT [facility] Comment: This Pap test has been evaluated with computer assisted technology. MEAL TEMPERER [facility] Comment: BASIM RUDD(ASCP) CT screening location: [place] [address]. (ALWAYS MESSAGE) [facility] Comment: EXPLANATORY NOTE: The Pap is a screening test for cervical cancer. It is not a diagnostic test and is subject to false negative and false positive results. It is most reliable when a satisfactory sample, regularly obtained, is submitted with relevant clinical findings and history, and when the Pap result is evaluated along with historic and current clinical information. HPV MRNA E6/E7 Not Detected Not Detected [facility] Comment: Methodology: Environmental Health Safety Engineer-Mediated Amplification This assay detects E6/E7 viral messenger RNA (mRNA) from 14 high-risk HPV types (16,18,31,33,35,39,45,51,52,56,58,59,66,68). Cervical sources are required for HPV testing. If a vaginal source from a patient who has had a total hysterectomy with removal of cervix was submitted, please contact the testing laboratory for alternative testing options. For additional information, please refer to http://education.AddressHealth/faq/JWF079n1 (This link if provided for information/ educational purposes only.) Swab 08/17/2023 3:01 PM EST 08/18/2023 4:11 AM EST Narrative Resulting Agency Comment Performing Organization Information Site ID: [id number] Name: [facility] Address: [address] [place] [address], [address] [place] [phone] Director: Zhang Diez MD Klaudia Pittman DO LAB CYTOLOGY ORDERABLES Lainey pena Result [facility] from Last 3 Months or Most Recently Relevant to Health Maintenance Insurance [employer] Care Teams Supervisor Hanging And Trimming Relationship Specialty Start Date End Date Charan Quinn MD [address] [place] [address] PCP - General Family Medicine 01/20/24 Bijal Antunez NP [address] [place] [address] PCP - [facility] 12/14/23 Bijal Antunez NP [address] [place] [address] Nurse Practitioner Family Medicine 01/20/24
--- OUTSIDE RECORDS SUMMARY | 2025-03-01 17:56 | XMS_ITS | Encounter Summary ---
Author Organization [facility] Address [address] [place] [address] Care Team Providers Care Director Of Labor And Delivery Name Role Phone Charan Quinn MD Primary Care Provider [phone] Bijal Antunez PREDATOR CONTROL TRAPPER Unavailable [phone] Bijal Antunez PREDATOR CONTROL TRAPPER Unavailable [phone] Reason for Visit * Reason Comments Med Refill Encounter Details Date Type Department Care Team (Late st Contact Info) Description 09/17/2024 Refill [facility] [address] [place] [address] Bijal Antunze, PREDATOR CONTROL TRAPPER [address] [place] [address] Class 3 severe obesity due to excess calories without serious comorbidity with body mass index (BMI) of 45.0 to 49.9 in adult ([facility]) Social History Tobacco Use Types Packs/Day Years Used Date Smoking Tobacco: Former Cigarettes 1 15 0 09/14/2000 - 09/14/2015 Smokeless Tobacco: Never Alcohol Use Standard Drinks/Week Comments Not Currently 0 (1 standard drink = 0.6 oz pure alcohol) Caffeine intake: 1 cup of coffee daily , Soda 1 per day Humiliation, Afraid, Rape, and Kick questionnair e [...] or ex-partner? No 08/18/2023 Social Connection and Isolat ion Panel [NHANES] Answer Date Recorded In a typical week, how many times do you talk on the phone with family, friends, or neighbors? More than three times a week 08/18/2023 How often do you get togethe r with friends or relatives? Twice a week 08/18/2023 How often do you attend chur ch or mormon services? Never 08/18/2023 Do you belong to any clubs o r organizations such as moravian groups, unions, fraternal or athletic groups, or school groups? No 08/18/2023 How often do you attend meet ings of the clubs or organizations you belong to? Never 08/18/2023 Are you , , di vorced, , never , or living with a partner? 08/18/2023 AUDIT-C Answer Date Recorded Q1: How often do you have a drink containing alcohol? Never 08/22/2024 Q2: How many drinks containi ng alcohol do you have on a typical day when you are drinking? Patient does not drink Q3: How often do you have si x or more drinks on one occasion? Never 08/22/2024 Overall Financial Resource Strain (CARDIA) Answe r Date Recorded How hard is it for you to pa y for the very basics like food, housing, medical care, and heating? Not hard at all 08/18/2023 PHQ-2 Answer Date Recorded Patient Health Questionnaire-2 Score 0 08/22/2024 [facility] of Occupat ional Health - Occupational Stress Questionnaire Answer Date Recorded Do you feel stress - tense, restless, nervous, or anxious, or unable to sleep at night because your mind is troubled all the time - these days? Not at all 08/18/2023 Exercise Vital Sign Answer Date Recorde d On average, how many days pe r week do you engage in moderate to strenuous exercise (like a brisk walk)? 0 days 08/18/2023 On average, how many minutes do you engage in exercise at this level? 20 min 08/18/2023 Hunger Vital Sign Answer Date Recorded Within the past 12 months, y ou worried that your food would run out before you got the money to buy more. Never true 08/18/20 23 Within the past 12 months, t he food you bought just didn't last and you didn't have money to get more. Never true 08/18/2023 PRAPARE - Transportation Answer Date Re corded In the past 12 months, has l ack of transportation kept you from medical appointments or from getting medications? No 01/2023 In the past 12 months, has l ack of transportation kept you from meetings, work, or from getting things needed for daily living? No 08/18/2023 Housing Stability Vital Sign Answer [...] place to sleep or slept in a retirement (including now)? No 08/18/2023 Comments No Sex and Gender Information Value Date Recorded Sex Assigned at Not on file Legal Sex Female 7:24 PM EDT Gender Identity Not on file Sexual Orientation Not on file documented as of this encounter Miscellaneous Notes * Telephone Encounter - Bijal Antunez NP - 09/19/2024 8:58 AM EST May tell pt that her liver function tests have come back down to normal [place] documented in this encounter Plan of Treatment Upcoming Encounters Date Type Department Care Team (Late st Contact Info) Description 05/18/2025 8:40 AM EDT Office Visit [facility] [address] [place] [address] Bijal Antunez NP [address] [place] [address] 02/22/2026 11:10 AM EDT Office Visit [facility] [address] [place] [address] Rose Taylor PA [address] [place] [address] documented as of this encounter Visit Diagnoses Diagnosis Class 3 severe obesity due to excess calories without serious comorbidity with body mass index (BMI) of 45.0 to 49.9 in adult ([facility]) documented in this encounter Care Teams Director Of Labor And Delivery Relationship Specialty Start Date End Date Charan Quinn MD [address] [place] [address] PCP - General Family Medicine 01/20/24 Bijal Antunez NP [address] [place] [address] PCP - [facility] 12/14/23 Bijal Antunez NP [address] [place] [address] Nurse Practitioner Family Medicine 01/20/24 documented as of this encounter
--- OUTSIDE RECORDS SUMMARY | 2025-03-01 17:56 | XMS_ITS | Encounter Summary ---
Author Organization [facility] Address [address] [place] [address] Care Team Providers Care History Department Chair Name Role Phone Charan Quinn MD Primary Care Provider [phone] Charan Quinn MD Primary Care Provider [phone] Bijal Antunez AURIST Unavailable [phone] Bijal Antunez AURIST Unavailable [phone] Encounter Details Date Type Department Care Team (Late st Contact Info) Description 08/22/2023 Abstract [facility] [address] [place] [address] Bijal Antunez AURIST [address] [place] [address] Social History Tobacco Use Types Packs/Day Years [...] often do you attend chur ch or samaritan services? Never 08/18/2023 Do you belong to any clubs o r organizations such as congregation groups, unions, fraternal or athletic groups, or school groups? No 08/18/2023 How often do you attend meet ings of the clubs or organizations you belong to? Never 08/18/2023 Are you , , di vorced, , never , or living with a partner? 08/18/2023 AUDIT-C Answer Date Recorded Q1: How often do you have a drink containing alcohol? Never 08/18/2023 Q2: How many drinks containi ng alcohol do you have on a typical day when you are drinking? Patient does not drink Q3: How often do you have si x or more drinks on one occasion? Never 08/18/2023 Overall Financial Resource Strain (CARDIA) Answe r Date Recorded How hard is it for you to pa y for the very basics like food, housing, medical care, and heating? Not hard at all 08/18/2023 PHQ-2 Answer Date Recorded Patient Health Questionnaire-2 Score 0 08/17/2023 [facility] of Occupat ional Health - Occupational [...] place to sleep or slept in a usp (including now)? No 08/18/2023 Comments No Sex and Gender Information Value Date Recorded Sex Assigned at Not on file Legal Sex Female 7:24 PM EDT Gender Identity Not on file Sexual Orientation Not on file COVID-19 Exposure Response Date Recorded In the last 10 days, have yo u been in contact with someone who was confirmed or suspected to have Coronavirus/COVID-19? No / Unsure 08/18/2023 5:03 PM EST documented as of this encounter Plan of Treatment Upcoming Encounters Date Type Department Care Team (Late st Contact Info) Description 05/18/2025 8:40 AM EDT Office Visit [facility] [address] [place] [address] Bijal Antunez NP [address] [place] [address] 02/22/2026 11:10 AM EDT Office Visit [facility] [address] [place] [address] Rose Taylor PA [address] [place] [address] documented as of this encounter Visit Diagnoses Not on filedocumented in this encounter Care Teams History Department Chair Relationship Specialty Start Date End Date Charan Quinn MD PCP - General Cardiology 09/14/22 01/19/24 Charan Quinn MD [address] [place] [address] PCP - General Family Medicine 01/20/24 Bijal Antunez NP [address] [place] [address] PCP - [facility] [employer] 12/14/23 Bijal Antunez NP [address] [place] [address] Nurse Practitioner Family Medicine 01/20/24 documented as of this encounter
--- OUTSIDE RECORDS SUMMARY | 2025-03-01 17:56 | XMS_ITS | Encounter Summary ---
Author Organization [facility] Address [address] [place] [address] Care Team Providers Care Word Processor Name Role Phone Charan Quinn MD Primary Care Provider [phone] Charan Quinn MD Primary Care Provider [phone] Bijal Antunez SALES REPRESENTATIVE RAW FIBERS Unavailable [phone] Bijal Antunez SALES REPRESENTATIVE RAW FIBERS Unavailable [phone] Encounter Details Date Type Department Care Team (Late st Contact Info) Description 04/15/2023 Orders Only [facility] [address] [place] [phone] Anitha Mcdonald RN [address] [place], [place] [id number] Acquired hypothyroidism (Primary Dx) Social History Tobacco Use Types Packs/Day Years Used Date Smoking Tobacco: Former Cigarettes Q uit: 2016 Smokeless Tobacco: Never Alcohol Use Standard Drinks/Week Comments Not Currently 0 (1 standard drink = 0.6 oz pur e alcohol) Comments Unknown Sex and Gender Information Value Date Recorded Sex Assigned at Not on file Legal Sex Female 7:24 PM EDT Gender Identity Not on file Sexual Orientation Not on file documented as of this encounter Plan of Treatment Upcoming Encounters Date Type Department Care Team (Late st Contact Info) Description 05/18/2025 8:40 AM EDT Office Visit [facility] [address] [place] [address] Bijal Antunez, SIENNA [address] [place] [address] 02/22/2026 11:10 AM EDT Office Visit [facility] [address] [place] [address] Rose Taylor PA [address] [place] [address] Scheduled Orders Name Type Priority Associated Diagnoses Orde r Schedule TSH Lab Routine Acquired hypothyroidism Expected: 04/15/2023 (Approximate), Expires: 04/15/2024 documented as of this encounter Visit Diagnoses Diagnosis Acquired hypothyroidism- Primary Unspecified hypothyroidism documented in this encounter Care Teams Word Processor Relationship Specialty Start Date End Date Charan Quinn MD PCP - General Cardiology 09/14/22 01/19/24 Charan Quinn MD [address] [place] [address] PCP - General Family Medicine 01/20/24 Bijal Antunez NP [address] [place] [address] PCP - [employer] 12/14/23 Bijal Antunez NP [address] [place] [address] Nurse Practitioner Family Medicine 01/20/24 documented as of this encounter
--- OUTSIDE RECORDS SUMMARY | 2025-03-01 17:56 | XMS_ITS | Encounter Summary ---
Author Organization [facility] Address [address] [place] [address] Care Team Providers Care Vet Tech Name Role Phone Charan Quinn MD Primary Care Provider [phone] Bijal Antunez INVESTMENT SALES ASSISTANT Unavailable [phone] Bijal Antunez INVESTMENT SALES ASSISTANT Unavailable [phone] Encounter Details Date Type Department Care Team (Late st Contact Info) Description 02/23/2025 Bamboo flowsheet [facility] [address] [facility] [address] [place] [address] Rose Taylor PA [address] [facility] [address] [place] [address] Social History Tobacco Use Types Packs/Day Years [...] often do you attend chur ch or tenriism services? 1 to 4 times per year [...] Recorded Patient Health Questionnaire-2 Score 0 08/22/2024 [facility] of Occupat ional Health - Occupational Stress [...] place to sleep or slept in a nursing home (including now)? No 08/18/2023 Housing Stability Vital [...] were you homeless or living in a nursing home (including now)? No 11/09/2024 Comments No Sex [...] [facility] [address] [place] [address] Bijal Antunez NP [address] [place] [address] 02/22/2026 11:10 AM EDT Office Visit [facility] [address] [place] [address] Rose Taylor PA [address] [place] [address] documented as of this encounter Visit Diagnoses Not on filedocumented in this encounter Care Teams Vet Tech Relationship Specialty Start Date End Date Charan Quinn MD [address] [place] [address] PCP - General Family Medicine 01/20/24 Bijal Antunez NP [address] [place] [address] PCP - [facility] 12/14/23 Bijal Antunez NP [address] [place] [address] Nurse Practitioner Family Medicine 01/20/24 documented as of this encounter
--- OUTSIDE RECORDS SUMMARY | 2025-03-01 17:56 | XMS_ITS | Encounter Summary ---
Author Organization [facility] Address [address] [facility] [place] [address] Care Team Providers Care Medical Assistant Name Role Phone Charan Quinn MD Primary Care Provider [phone] Charan Quinn MD Primary Care Provider [phone] Bijal Antunez SPRING INSPECTOR Unavailable [phone] Bijal Antunez SPRING INSPECTOR Unavailable [phone] Encounter Details Date Type Department Care Team (Late st Contact Info) Description 08/19/2023 Orders Only [facility] [address] [place] [address] Bijal Antunez, SPRING INSPECTOR [address] [place] [address] Social History Tobacco Use Types Packs/Day Years [...] 08/18/2023 How often do you attend chur or zoroastrianism services? Never 08/18/2023 Do you belong to any clubs o r organizations such as spiritism groups, unions, fraternal or athletic groups, or [...] Recorded Patient Health Questionnaire-2 Score 0 08/17/2023 [facility] of Occupat ional Health - Occupational Stress [...] a senior living (including now)? No 08/18/2023 Comments No Sex [...] Visit [facility] [address] [place] [address] Bijal Antunez NP [address] [place] [address] 02/22/2026 11:10 AM EDT Office Visit [facility] [address] [place] [address] Rose Taylor PA [address] [place] [address] documented as of this encounter Procedures Procedure Name Priority Date/Time Associated Diagnosis Comments MAMM SCREENING W CAD Routine 10/28/2022 8:57 AM EST documented in this encounter Results * MAMM SCREENING W CAD (10/28/2022 8:57 AM EST) Anatomical Region Laterality Modality Radiographic Yancy ging us Bijal Antunez SPRING INSPECTOR IMG XR PROCEDURES Final Result documented in this encounter Visit Diagnoses Not on filedocumented in this encounter Care Teams Medical Assistant Relationship Specialty Start Date End Date Charan Quinn MD PCP - General Cardiology 09/14/22 01/19/24 Charan Quinn MD [address] [place] [address] PCP - General Family Medicine 01/20/24 Bijal Antunez NP [address] [place] [address] PCP - [facility] [employer] 12/14/23 Bijal Antunez NP [address] [place] [address] Nurse Practitioner Family Medicine 01/20/24 documented as of this encounter
--- OUTSIDE RECORDS SUMMARY | 2025-03-01 17:56 | XMS_ITS | Encounter Summary ---
Author Organization [facility] Address [address] [place] [address] Care Team Providers Care Diving Instructor Name Role Phone Charan Quinn MD Primary Care Provider [phone] Charan Quinn MD Primary Care Provider [phone] Bijal Antunez AUTOMOTIVE DIAGNOSTIC TECHNICIAN Unavailable [phone] Bijal Antunez AUTOMOTIVE DIAGNOSTIC TECHNICIAN Unavailable [phone] Encounter Details Date Type Department Care Team (Late st Contact Info) Description 12/02/2023 Orders Only [facility] [address] [place] [address] Bijal Antunez AUTOMOTIVE DIAGNOSTIC TECHNICIAN [address] [place] [address] Social History Tobacco Use Types [...] How often do you attend chur or hinduism services? Never 08/18/2023 Do you belong to any clubs o r organizations such as hoahaoism groups, unions, fraternal or athletic groups, or [...] Recorded Patient Health Questionnaire-2 Score 0 08/17/2023 [facility] of Occupat ional Health - Occupational Stress [...] place to sleep or slept in a residential (including now)? No 08/18/2023 Comments No Sex [...] Visit [facility] [address] [place] [address] Bijal Antunez NP [address] [place] [address] 02/22/2026 11:10 AM EDT Office Visit [facility] [address] [place] [address] Rose Taylor PA [address] [place] [address] documented as of this encounter Procedures Procedure Name Priority Date/Time Associated Diagnosis Comments MAMM SCREEN CAD BILAT10.00 %28 Routine 12/01/2023 11:47 AM EDT documented in this encounter Results * MAMM SCREEN CAD BILAT10.00 %28 (12/01/2023 11:47 AM EDT) Anatomical Region Laterality Modality Radiographic Yancy ging us Bijal Antunez AUTOMOTIVE DIAGNOSTIC TECHNICIAN IMG XR PROCEDURES Final Result documented in this encounter Visit Diagnoses Not on filedocumented in this encounter Care Teams Diving Instructor Relationship Specialty Start Date End Date Charan Quinn MD PCP - General Cardiology 09/14/22 01/19/24 Charan Quinn MD [address] [place] [address] PCP - General Family Medicine 01/20/24 Bijal Antunez NP [address] [place] [address] PCP - [facility] [employer] 12/14/23 Bijal Antunez NP [address] [place] [address] Nurse Practitioner Family Medicine 01/20/24 documented as of this encounter
--- OUTSIDE RECORDS SUMMARY | 2025-03-01 17:56 | XMS_ITS | Encounter Summary ---
Author Organization [facility] Address [address] [place] [address] Care Team Providers Care Home Health Care Social Worker Name Role Phone Charan Quinn MD Primary Care Provider [phone] Bijal Antunez PET TRAINING INSTRUCTOR Unavailable [phone] Bijal Antunez PET TRAINING INSTRUCTOR Unavailable [phone] Encounter Details Date Type Department Care Team (Late st Contact Info) Description 01/25/2024 Orders Only [facility] [address] [facility] [address] [place] [address] Kamilah Martinez MD [address] [facility] [address] [place], [place] [id number] Social History Tobacco Use Types Packs/Day Years [...] How often do you attend chur or mu-ism services? Never 08/18/2023 Do you belong to any clubs o r organizations such as roman catholic groups, unions, fraternal or athletic groups, or [...] Date Recorded Patient Health Questionnaire-2 Score 0 01/20/2024 [facility] of Occupat ional Health - Occupational Stress [...] place to sleep or slept in a penitentiary (including now)? No 08/18/2023 Comments No Sex and Gender Information Value Date Recorded Sex Assigned at Not on file Legal Sex Female 7:24 PM EDT Gender Identity Not on file Sexual Orientation Not on file documented as of this encounter Plan of Treatment Upcoming Encounters Date Type Department Care Team (Late st Contact Info) Description 05/18/2025 8:40 AM EDT Office Visit [facility] [address] [place] [address] Bijal Antunez NP [address] [place] [address] 02/22/2026 11:10 AM EDT Office Visit [facility] [address] [place] [address] Rose Taylor PA [address] [place] [address] documented as of this encounter Procedures Procedure Name Priority Date/Time Associated Diagnosis Comments SCANNED LABS Routine 04/17/2023 11:38 AM EDT documented in this encounter Results * SCANNED LABS (04/17/2023 11:38 AM EDT) us Kamilah Martinez MD LAB CHG PERFORMABLES Final Re sult documented in this encounter Visit Diagnoses Not on filedocumented in this encounter Care Teams Home Health Care Social Worker Relationship Specialty Start Date End Date Cahran Quinn MD [address] [place] [address] PCP - General Family Medicine 01/20/24 Bijal Antunez NP [address] [place] [address] PCP - [facility] 12/14/23 Bijal Antunez NP [address] [place] [address] Nurse Practitioner Family Medicine 01/20/24 documented as of this encounter
--- OUTSIDE RECORDS SUMMARY | 2025-03-01 17:56 | XMS_ITS | Encounter Summary ---
Author Organization [facility] Address [address] [place] [address] Care Team Providers Care Pet Adoption Counselor Name Role Phone Charan Quinn MD Primary Care Provider [phone] Bijal Antunez DOCUMENT CONTROL ASSISTANT Unavailable [phone] Bijal Antunez DOCUMENT CONTROL ASSISTANT Unavailable [phone] Encounter Details Date Type Department Care Team (Late st Contact Info) Description 03/11/2024 Orders Only [facility] [address] [facility] [address] [place] [address] Kamilah Martinez MD [address] [facility] [address] [place], [place] [address] Social History Tobacco Use Types Packs/Day Years [...] How often do you attend chur or gnosticism services? Never 08/18/2023 Do you belong to any clubs o r organizations such as congregational groups, unions, fraternal or athletic groups, or [...] Recorded Patient Health Questionnaire-2 Score 0 01/20/2024 [facility] of Occupat ional Health - Occupational Stress [...] place to sleep or slept in a assisted (including now)? No 08/18/2023 Comments No Sex [...] Office Visit [facility] [address] [place] [address] Bijal Antunez NP [address] [place] [address] 02/22/2026 11:10 AM EDT Office Visit [facility] [address] [place] [address] Rose Taylor PA [address] [place] [address] documented as of this encounter Procedures Procedure Name Priority Date/Time Associated Diagnosis Comments SCANNED LABS Routine 03/10/2024 8:45 AM EDT documented in this encounter Results * SCANNED LABS (03/10/2024 8:45 AM EDT) us Kamilah Martinez MD LAB CHG PERFORMABLES Final Re sult documented in this encounter Visit Diagnoses Not on filedocumented in this encounter Care Teams Pet Adoption Counselor Relationship Specialty Start Date End Date Charan Quinn MD [address] [place] [address] PCP - General Family Medicine 01/20/24 Bijal Antunez NP [address] [place] [address] PCP - [facility] 12/14/23 Bijal Antunez NP [address] [place] [address] Nurse Practitioner Family Medicine 01/20/24 documented as of this encounter
--- OUTSIDE RECORDS SUMMARY | 2025-03-01 17:56 | XMS_ITS | Encounter Summary ---
Author Organization [facility] Address [address] [place] [address] Care Team Providers Care Technicians And Trades Workers Name Role Phone Charan Quinn MD Primary Care Provider [phone] Bijal Antunez WIRELESS OPERATOR Unavailable [phone] Bijal Antunez WIRELESS OPERATOR Unavailable [phone] Encounter Details Date Type Department Care Team (Late st Contact Info) Description 09/22/2024 Orders Only [facility] [address] [place] [address] Bijal Antunez WIRELESS OPERATOR [address] [place] [address] Social History Tobacco Use Types Packs/Day Years [...] How often do you attend chur or oriental orthodox services? Never 08/18/2023 Do you belong to any clubs o r organizations such as worship groups, unions, fraternal or athletic groups, or [...] Recorded Patient Health Questionnaire-2 Score 0 08/22/2024 [facility] [place] of Occupat ional Health - Occupational Stress [...] place to sleep or slept in a jail (including now)? No 08/18/2023 Comments No Sex [...] Visit [facility] [address] [place] [address] Bijal Antunez NP [address] [place] [address] 02/22/2026 11:10 AM EDT Office Visit [facility] [address] [place] [address] Rose Taylor PA [address] [place] [address] documented as of this encounter Procedures Procedure Name Priority Date/Time Associated Diagnosis Comments SCANNED LABS Routine 09/22/2024 11:19 AM EST documented in this encounter Results * SCANNED LABS (09/22/2024 11:19 AM EST) Bijal Antunez WIRELESS OPERATOR LAB CHG PERFORMABLES Final Resu lt documented in this encounter Visit Diagnoses Not on filedocumented in this encounter Care Teams Technicians And Trades Workers Relationship Specialty Start Date End Date Charan Quinn MD [address] [place] [address] PCP - General Family Medicine 01/20/24 Bijal Antunez NP [address] [place] [address] PCP - [facility] 12/14/23 Bijal Antunez NP [address] [place] [address] Nurse Practitioner Family Medicine 01/20/24 documented as of this encounter
--- OUTSIDE RECORDS SUMMARY | 2025-03-01 17:56 | XMS_ITS | Encounter Summary ---
Author Organization [facility] Address [address] [place] [address] Care Team Providers Care Poultry Husbandry Teacher Name Role Phone Charan Quinn MD Primary Care Provider [phone] Bijal Antunez THERAPEUTIC RECREATION LEADER Unavailable [phone] Bijal Antunez THERAPEUTIC RECREATION LEADER Unavailable [phone] Encounter Details Date Type Department Care Team (Latest Contact Info) Description 02/23/2025 Travel Social History Tobacco Use Types Packs/Day Years [...] How often do you attend chur or baptist services? 1 to 4 times per year 11/09/2024 Do you belong to any clubs o r organizations such as scientologist groups, unions, fraternal or athletic groups, or [...] Recorded Patient Health Questionnaire-2 Score 0 08/22/2024 [facility] [place] of Occupat ional Health - Occupational Stress [...] any time in the past 12 m [facility], were you homeless or living in a [...] Visit [facility] [address] [place] [address] Bijal Antunez NP [address] [place] [address] 02/22/2026 11:10 AM EDT Office Visit [facility] [address] [place] [address] Rose Taylor PA [address] [place] [address] documented as of this encounter Visit Diagnoses Not on filedocumented in this encounter Care Teams Poultry Husbandry Teacher Relationship Specialty Start Date End Date Charan Quinn MD [address] [place] [address] PCP - General Family Medicine 01/20/24 Bijal Antunez NP [address] [place] [address] PCP - [facility] 12/14/23 Bijal Antunez NP [address] [place] [address] Nurse Practitioner Family Medicine 01/20/24 documented as of this encounter
--- OUTSIDE RECORDS SUMMARY | 2025-03-01 17:56 | XMS_ITS | Encounter Summary ---
Author Organization [facility] Address [address] [place] [address] Care Team Providers Care Chief I Dispatcher Name Role Phone Charan Quinn MD Primary Care Provider [phone] Bijal Antunez LAST REPAIRER HELPER Unavailable [phone] Bijal Antunez LAST REPAIRER HELPER Unavailable [phone] Encounter Details Date Type Department Care Team (Latest Contact Info) Description 02/21/2025 Travel Social History Tobacco Use Types Packs/Day [...] How often do you attend chur or gnosticist services? 1 to 4 times per year 11/09/2024 Do you belong to any clubs o r organizations such as mandaeism groups, unions, fraternal or athletic groups, or [...] Recorded Patient Health Questionnaire-2 Score 0 08/22/2024 [facility] [place] of Occupat ional Health - Occupational Stress [...] in a usp (including now)? No 08/18/2023 Housing Stability Vital Sign Answer Derick e Recorded In the last 12 months, was t here a time when you were not able to pay the mortgage or rent on time? No 11/09/2024 In the past 12 months, how m any times have you moved where you were living? 0 11/09/2024 At any time in the past 12 m [facility], were you homeless or living in a usp (including now)? No 11/09/2024 Comments No Sex [...] Visit [facility] [address] [place] [address] Bijal Antunez NP [address] [place] [address] 02/22/2026 11:10 AM EDT Office Visit [facility] [address] [place] [address] Rose Taylor PA [address] [place] [address] documented as of this encounter Visit Diagnoses Not on filedocumented in this encounter Care Teams Chief I Dispatcher Relationship Specialty Start Date End Date Charan Quinn MD [address] [place] [address] PCP - General Family Medicine 01/20/24 Bijal Antunez NP [address] [place] [address] PCP - [facility] 12/14/23 Bijal Antunez NP [address] [place] [address] Nurse Practitioner Family Medicine 01/20/24 documented as of this encounter
--- OUTSIDE RECORDS SUMMARY | 2025-03-01 17:56 | XMS_ITS | Encounter Summary ---
Author Organization [facility] Address [address] [place] [address] Care Team Providers Care Business Department Chair Name Role Phone Charan Quinn MD Primary Care Provider [phone] Charan Quinn MD Primary Care Provider [phone] Bijal Antunez MANUAL TRAINING TEACHER Unavailable [phone] Bijal Antunez MANUAL TRAINING TEACHER Unavailable [phone] Encounter Details Date Type Department Care Team (Late st Contact Info) Description 12/02/2023 Clinisync Result Encounter [facility] External Department Unsolicited Bijal Antunez, MANUAL TRAINING TEACHER [address] [place] [address] Social History Tobacco Use Types Packs/Day Years [...] any clubs o r organizations such as restorationist groups, unions, fraternal or athletic groups, or [...] Recorded Patient Health Questionnaire-2 Score 0 08/17/2023 [facility] [place] of Occupat ional Health - Occupational Stress [...] Visit [facility] [address] [place] [address] Bijal Antunez NP [address] [place] [address] 02/22/2026 11:10 AM EDT Office Visit [facility] [address] [place] [address] Rose Taylor PA [address] [place] [address] documented as of this encounter Procedures Procedure Name Priority Date/Time Associated Diagnosis Comments MM TOMOSYNTHESIS SCREENING BI 12/02/2023 9:57 AM EDT documented in this encounter Results * MM TOMOSYNTHESIS SCREENING BI (12/02/2023 9:57 AM EDT) Anatomical Region Laterality Modality Other 12/02/2023 9:57 AM EDT Narrative 12/02/2023 9:58 [place] [address] Mammography Report Signed Patient: WAYNE LOZADA MR#: [id number] : 1965 Acct:[id number] Age/Sex: 58 / F ADM Date: 12/01/23 Loc: MAMMO Attending Dr: Bijal Antunez NP Ordering Physician: Bijal Antunez NP Results: Date of Service: 12/01/23 Follow Up: Procedure(s): MM tomosynthesis screening BI Accession Number(s): [id number] cc: Bijal Antunez NP Patient Name: WAYNE LOZADA MR#: [id number] : 1965 Exam Date: 12/01/2023 Ordering Doctor: GLENNY Antunez CNP RADIOLOGY REPORT PROCEDURE: MM TOMOSYNTHESIS SCREENING BI COMPARISON: MG MAMM SCREEN 3D ISABELLA CAD, 10/23/2021. MG MAMM SCREEN 3D ISABELLA CAD, 10/28/2022. INDICATIONS: screening Calculator Name NCI Breast Cancer Risk Assessment Tool 5 Year Breast Cancer Risk 1.00% Lifetime Breast Cancer Risk 5.60% Personal Breast Cancer No Personal Ovarian Cancer No Treatments None Family Cancers Mother with multiple myeloma cancer at age 74. LOCATION: [facility] BREAST COMPOSITION: Heterogeneously dense,which may obscure [...] PALPABLE LUMP SHOULD BE BIOPSIED. Dictated by: Deangelo Fontaine MD on 12/02/2023 at 09:54 Approved by: Deangelo Fontaine MD on 12/02/2023 at 09:57 Dictated By: Deangelo Fontaine M.D. Signed By: 12/02/23 0958 DD/ 0957 TD/TT: Workforce Management Analyst: Procedure Note Radiology, Radiologist, MD - 12/02/2023 [place] [address] Mammography Report Signed Patient: WAYNE LOZADA KMR#: [id number] : 1965Acct:[id number] Age/Sex: 58 / FADM Date: 12/01/23 Loc: MAMMO Attending Dr: Bijal Antunez NP Ordering Physician: Bijal Antunez NPResults: Date of Service: 12/01/23Follow Up: Procedure(s): MM tomosynthesis screening BI Accession Number(s): [id number] cc: Bijal Antunez NP Patient Name: WAYNE LOZADA MR#: [id number] : 1965 Exam Date: 12/01/2023 Ordering Doctor: GLENNY Antunez CNP RADIOLOGY REPORT PROCEDURE: MM TOMOSYNTHESIS SCREENING BI COMPARISON: MG MAMM SCREEN 3D ISABELLA CAD, 10/23/2021. MG MAMM SCREEN 3DBIL CAD, 10/28/2022. INDICATIONS: screening Calculator Name NCI Breast Cancer Risk Assessment Tool 5 Year Breast Cancer Risk 1.00% Lifetime Breast Cancer Risk 5.60% Personal Breast Cancer No Personal Ovarian Cancer No Treatments None Family Cancers Mother with multiple myeloma cancer at age 74. LOCATION: [facility] BREAST COMPOSITION: Heterogeneously dense,which may obscure smallmasses. FINDINGS: DIAGNOSTIC CATEGORY 2--BENIGN FINDING. NO CHANGE FROM COMPARISON. Scattered benign-appearing nodules are present. Scatteredbenign-appearing calcifications are present. Scattered benign-appearing lymph nodes are present. RIGHT BREAST: No significant suspicious finding. LEFT BREAST: No significant suspicious finding. RECOMMENDATIONS: ROUTINE MAMMOGRAM AND CLINICAL EVALUATION IN 12 MONTHS. PLEASE NOTE: A NORMAL MAMMOGRAM DOES NOT EXCLUDE THE POSSIBILITY OFBREAST CANCER. A CLINICALLY SUSPICIOUS PALPABLE LUMP SHOULD BE BIOPSIED. Dictated by: Deangelo Fontaine MD on 12/02/2023 at 09:54 Approved by: Deangelo Fontaine MD on 12/02/2023 at 09:57 Dictated By: Deangelo Fontaine M.D. Signed By:12/02/2358 DD/ TD/TT: Workforce Management Analyst: us Bijal Antunez NP [facility] Final Result documented in this encounter Visit Diagnoses Not on filedocumented in this encounter Care Teams Business Department Chair Relationship Specialty Start Date End Date Charan Quinn MD PCP - General Cardiology 09/14/22 01/19/24 Charan Quinn MD [address] [place] [address] PCP - General Family Medicine 01/20/24 Bijal Antunez NP [address] [place] [address] PCP - [facility] 12/14/23 Bijal Antunez NP [address] [place] [address] Nurse Practitioner Family Medicine 01/20/24 documented as of this encounter
--- OUTSIDE RECORDS SUMMARY | 2025-03-01 17:56 | XMS_ITS | Encounter Summary ---
Author Organization [facility] Address [address] [place] [address] Care Team Providers Care Philatelic Consultant Name Role Phone Charan Quinn MD Primary Care Provider [phone] Bijal Antunez HORSE AND WAGON DRIVER Unavailable [phone] Bijal Antunez HORSE AND WAGON DRIVER Unavailable [phone] Encounter Details Date Type Department Care Team (Latest Contact Info) Description 02/15/2025 Travel Social History Tobacco Use Types Packs/Day [...] How often do you attend chur or lutheran services? 1 to 4 times per year 11/09/2024 Do you belong to any clubs o r organizations such as islam groups, unions, fraternal or athletic groups, or [...] Recorded Patient Health Questionnaire-2 Score 0 08/22/2024 [facility] [place] of Occupat ional Health - Occupational Stress [...] place to sleep or slept in a fpc (including now)? No 08/18/2023 Housing Stability Vital Sign Answer Derick e Recorded In the last 12 months, was t here a time when you were not able to pay the mortgage or rent on time? No 11/09/2024 In the past 12 months, how m any times have you moved where you were living? 0 11/09/2024 At any time in the past 12 m [facility], were you homeless or living in a fpc (including now)? No 11/09/2024 Comments No Sex [...] Visit [facility] [address] [place] [address] Bijal Antunez NP [address] [place] [address] 02/22/2026 11:10 AM EDT Office Visit [facility] [address] [place] [address] Rose Taylor PA [address] [place] [address] documented as of this encounter Visit Diagnoses Not on filedocumented in this encounter Care Teams Philatelic Consultant Relationship Specialty Start Date End Date Charan Quinn MD [address] [address] PCP - General Family Medicine 01/20/24 Bijal Antunez NP [address] [place] [address] PCP - [facility] 12/14/23 Bijal Antunez NP [address] [place] [address] Nurse Practitioner Family Medicine 01/20/24 documented as of this encounter
--- OUTSIDE RECORDS SUMMARY | 2025-03-01 17:56 | XMS_ITS | Encounter Summary ---
Author Organization [facility] Address [address] [place] [address] Care Team Providers Care Concession Supervisor Name Role Phone Charan Quinn MD Primary Care Provider [phone] Bijal Antunez INSPECTOR MACHINE CUT GLASS Unavailable [phone] Bijal Antunez INSPECTOR MACHINE CUT GLASS Unavailable [phone] Reason for Visit * Reason Comments Med Refill Encounter Details Date Type Department Care Team (Late st Contact Info) Description 04/27/2024 Refill [facility] [address] [place] [address] Bijal Antunez, INSPECTOR MACHINE CUT GLASS [address] [place] [address] Class 3 severe obesity due to excess calories without serious comorbidity with body mass index (BMI) of 45.0 to 49.9 in adult ([facility]) Social History Tobacco Use Types Packs/Day [...] often do you attend chur ch or methodist services? Never 08/18/2023 Do you belong to [...] Recorded Patient Health Questionnaire-2 Score 0 01/20/2024 [facility] of Occupat ional Health - [...] place to sleep or slept in a mcfp (including now)? No 08/18/2023 Comments No Sex and Gender Information Value Date Recorded Sex Assigned at Not on file Legal Sex Female 7:24 PM EDT Gender Identity Not on file Sexual Orientation Not on file documented as of this encounter Miscellaneous Notes * Telephone Encounter - Bijal Antunez NP - 04/29/2024 7:58 AM EDT Med dose changed documented in this encounter Plan of Treatment Upcoming Encounters Date Type Department Care Team (Late st Contact Info) Description 05/18/2025 8:40 AM EDT Office Visit [facility] [address] [place] [address] Bijal Antunez NP [address] [place] [address] 02/22/2026 11:10 AM EDT Office Visit [facility] [address] [place] [address] Rose Taylor PA [address] [place] [address] documented as of this encounter Visit Diagnoses Diagnosis Class 3 severe obesity due to excess calories without serious comorbidity with body mass index (BMI) of 45.0 to 49.9 in adult ([facility]) documented in this encounter Care Teams Concession Supervisor Relationship Specialty Start Date End Date Charan Quinn MD [address] [place] [address] PCP - General Family Medicine 01/20/24 Bijal Antunez NP [address] [place] [address] PCP - [facility] 12/14/23 Bijal Antunez NP [address] [place] [address] Nurse Practitioner Family Medicine 01/20/24 documented as of this encounter
--- OUTSIDE RECORDS SUMMARY | 2025-03-01 17:56 | XMS_ITS | Clinical Summary ---
Author Organization [employer] tem Address [id number] [address] [place] [address] Care Team Providers Care Cook'S Assistant Name Role Phone Bijal Antunez APRN-PUBLIC HEALTH SANITARIAN TECHNICIAN Primary Care Provider Allergies No known active allergies Medications hydroCHLOROthia zide (HYDRODIURIL) 25 mg tablet Take 1 tablet (25 mg total) by mouth daily. Active atorvastatin (LIPITOR) 40 mg tablet Take 1 tablet (40 mg total) by mouth. 4 Active cholecalciferol (VITAMIN D3) 1,000 units tablet Take 1 tablet (1,000 Units total) by mouth in the morning. Active estradioL (ESTRACE) 2 mg tablet Take 1 tablet (2 mg total) by mouth in the morning. 4 Active ferrous sulfate 325 (65 FE) MG tablet Take 1 tablet (325 mg total) by mouth in the morning. Active levothyroxine (SYNTHROID, LEVOTHROID) 150 MCG tablet Take 1 tablet (150 mcg total) by mouth. 4 04/04/20 25 Active nystatin-triamc inolone (MYCOLOG II) cream Apply 1 Application topically every 12 (twelve) hours. 5 Active Encounters Date Type Department Care Team Description 12/29/2024 2:18 PM EDT - 12/29/2024 6:44 PM EDT Emergency [facility] - Emergency [address] [place] [address] Jeremi Rojas MD Elkhatib, Ahmad M, Angioedema, initial encounter (Primary Dx) Discharge Disposition: Home 12/29/2024 Travel from Last 3 Months Social History Tobacco Use Types Packs/Day Years Used Date Smoking Tobacco: Never Smokeless Tobacco: Never Tobacco Cessation:Counseling Given: Not Answered Alcohol Use Standard Drinks/Week Comments Never 0 (1 standard drink = 0.6 oz pur e alcohol) Childcare Answer Date Recorded Childcare Unknown 02/23/2019 Employment Answer Date Recorded Employment Unknown 02/23/2019 Hunger Screening Answer Date Recorded Within the past 12 months we worried whether our food would run out before we got money to buy more. Never True 12/29/2024 Within the past 12 months th e food we bought just didn't last and we didn't have money to get more. Never True 12/29/2024 Purpose - Life Answer Date Recorded Purpose and direction in life Unknown Comments Unknown Sex and Gender Information Value Date Recorded Sex Assigned at Not on file Legal Sex Female 11:39 AM EDT Gender Identity Not on file Sexual Orientation Not on file Last Filed Vital Signs Vital Sign Reading Time Taken Comments Blood Pressure 145/75 12/29/2024 6:45 PM EDT Pulse 85 12/29/2024 2:29 PM EDT Temperature 36.9 C (98.4 F) 12/29/2024 2:29 PM EDT Respiratory Rate 18 12/29/2024 2:29 PM EDT Oxygen Saturation 93% 12/29/2024 6:45 PM EDT Inhaled Oxygen Concentration - - Weight 122.9 kg (271 lb) 12/29/2024 2:29 PM EDT Height 167.6 cm (5' 6 ) 12/29/2024 2:29 PM EDT Body Mass Index 43.74 12/29/2024 2:29 PM EDT Plan of Treatment Health Maintenance Due Date Last Done Comments Depression Screening 1977 Adult BMI Follow Up Plan 1983 DTaP,Tdap and Td Vaccines (1 - Tdap) 1984 Pap Smear 1986 Zoster (Shingles) Vaccine (1 of 2) 2015 Influenza Vaccine 05/15/2025 Adult BMI Screening 12/29/2025 12/29/2024 Tobacco Screening 12/29/2025 12/29/2024 Medical Devices Not on file Procedures Procedure Name Priority Date/Time Associated Diagnosis Comments BASIC METABOLIC PANEL STAT 12/29/2024 2:39 PM EDT CBC WITH AUTO DIFFERENTIAL STAT 12/29/2024 2:39 PM EDT from Last 3 Months Results * (ABNORMAL) CBC auto differential (12/29/2024 2:39 PM EDT) White Blood Cells 7.0 4.0 - 11.0 X10E9/L 12/29/2024 2:48 PM EDT [facility] RBC count 3.95 3.80 - 5.20 X10E12/L 12/29/2024 2:48 PM EDT [facility] Hemoglobin 12.6 11.7 - 15.5 g/dL 12/29/2024 2:48 PM EDT [facility] Hematocrit 35.9 35 - 47 % 12/29/2024 2:48 PM EDT [facility] MCV 91 80 - 100 fL 12/29/2024 2:48 PM EDT [facility] MCH 32.0 27 - 34 pg 12/29/2024 2:48 PM EDT [facility] MCHC 35.1 32 - 36 g/dL 12/29/2024 2:48 PM EDT [facility] RDW 13.3 11.5 - 15.0 % 12/29/2024 2:48 PM EDT [facility] Platelets 358 150 - 450 X10E9/L 12/29/2024 2:48 PM EDT [facility] MPV 6.3(L) 7 - 12 fL 12/29/2024 2:48 PM EDT [facility] % neutrophils 74.6 % 12/29/2024 2:48 PM EDT [facility] % lymphocytes 15.8 % 12/29/2024 2:48 PM EDT [facility] % monocytes 6.6 % 12/29/2024 2:48 PM EDT [facility] % eosinophils 2.7 % 12/29/2024 2:48 PM EDT [facility] % Basophils 0.3 % 12/29/2024 2:48 PM EDT [facility] Neutrophils Absolute (A) 5.2 1.5 - 6.6 X10E9/L 12/29/2024 2:48 PM EDT [facility] Lymphocytes Absolute 1.1 1.0 - 3.5 X10E9/L 12/29/2024 2:48 PM EDT [facility] Monocytes Absolute 0.5 0 - 0.9 X10E9/L 12/29/2024 2:48 PM EDT [facility] Eosinophils Absolute 0.2 0.0 - 0.4 X10E9/L 12/29/2024 2:48 PM EDT [facility] Basophils Absolute 0.0 0.0 - 0.2 X10E9/L 12/29/2024 2:48 PM EDT [facility] Blood Blood / Unknown 12/29/2024 2 :39 PM EDT 12/29/2024 2:42 PM EDT us Jeremi Rojas MD LAB BLOOD ORDERABLES Final Re sult [facility] [address] [place] [address], [place] [address] * (ABNORMAL) Basic Metabolic Panel (12/29/2024 2:39 PM EDT) Sodium 136 134 - 146 mmol/L 12/29/2024 2:54 PM EDT [facility] Potassium, Bld 3.5 3.5 - 5.0 mmol/L 12/29/2024 2:54 PM EDT [facility] Chloride 99 98 - 109 mmol/L 12/29/2024 2:54 PM EDT [facility] CO2 25 22 - 32 mmol/L 12/29/2024 2:54 PM EDT [facility] Anion gap 12 5 - 15 mmol/L 12/29/2024 2:54 PM EDT [facility] BUN 29(H) 5 - 23 mg/dL 12/29/2024 2:55 PM EDT [facility] Creatinine 0.59 0.40 - 1.00 mg/dL 12/29/2024 2:55 PM EDT [facility] Comment:METHOD TRACEABLE TO IDMS STANDARD Glucose 112(H) 65 - 99 mg/dL 12/29/2024 2:54 PM EDT [facility] Calcium 9.2 8.5 - 10.5 mg/dL 12/29/2024 2:54 PM EDT [facility] eGFR (CKD-EPI)non-ra ce dependent >90 >59 ml/min/1.7 3sq.m 12/29/2024 2:55 PM EDT [facility] Comment: Reported eGFR is based on the CKD-EPI 2020 equation that does not use a race coefficient. Blood (PLASMA) 12/29/2024 2: 39 PM EDT 12/29/2024 2:42 PM EDT Jeremi Rojas MD LAB BLOOD ORDERABLES Final Re [facility] [address] [facility] [facility], [place] [address] from Last [address] [place] [address] Care Teams Cook'S Assistant Relationship Specialty Start Date End Date Bijal Antunez, MEDICAL TECHNOLOGIST CLINICAL-PUBLIC HEALTH SANITARIAN TECHNICIAN PCP - General Nurse Practitioner 12/29/24
--- OUTSIDE RECORDS SUMMARY | 2025-03-01 17:56 | XMS_ITS | Encounter Summary ---
Author Organization [facility] Address [address] [place] [address] Care Team Providers Care Drill Operator Automatic Name Role Phone Charan Quinn MD Primary Care Provider [phone] Bijal Antunez SALES COMPENSATION ANALYST Unavailable [phone] Bijal Antunez SALES COMPENSATION ANALYST Unavailable [phone] Reason for Visit * Reason Comments Med Refill Encounter Details Date Type Department Care Team (Late st Contact Info) Description 08/19/2024 Refill [facility] [address] [place] [id number] Bijal Antunez, SALES COMPENSATION ANALYST [address] [place] [address] Essential (primary) hypertension ; Bilateral lower extremity edema Social History Tobacco Use Types Packs/Day Years [...] How often do you attend chur or advent services? Never 08/18/2023 Do you belong to any clubs o r organizations such as druze groups, unions, fraternal or athletic groups, or [...] Recorded Patient Health Questionnaire-2 Score 0 08/22/2024 [facility] [place] of Occupat ional Health - Occupational Stress [...] place to sleep or slept in a detention (including now)? No 08/18/2023 Comments No Sex and Gender Information Value Date Recorded Sex Assigned at Not on file Legal Sex Female 7:24 PM EDT Gender Identity Not on file Sexual Orientation Not on file documented as of this encounter Functional Status * Audit-C Score Answer Date of Assessment Author 0 08/22/2024 10:12 AM Cesar Hunt MA * Question Answer Date of Assessment Author Q1: How often do you have a drink containing alcohol? Never 08/22/2024 10:12 AM Jackie Hunt M A Q2: How many drinks containing alcohol do you have on a typical day when you are drinking? Patient does not drink 08/22/2024 10:12 AM Jackie Hunt MA Q3: How often do you have six or more drinks on one occasion? Never 08/22/2024 10:12 AM Jackie Hunt M A * Over the past 2 weeks, how often have you been bothered by any of the following problems? Question Answer Date of Assessment Author Little interest or pleasure in doing things Not at all 08/22/2024 10:12 AM Jackie Hunt M A Feeling down, depressed, or hopeless Not at all 08/22/2024 10:12 AM Jackie Hunt M A Patient Health Questionnaire -2 Score 0 08/22/2024 10:12 AM Jackie Hunt M A documented as of this encounter Plan of Treatment Upcoming Encounters Date Type Department Care Team (Late st Contact Info) Description 05/18/2025 8:40 AM EDT Office Visit [facility] [address] [place] [phone] Bijal Antunez NP [address] [place] [phone] 02/22/2026 11:10 AM EDT Office Visit [facility] [address] [place] [address] Rose Taylor PA [address] [place] [address] documented as of this encounter Visit Diagnoses Diagnosis Essential (primary) hypertension Unspecified essential hypertension Bilateral lower extremity edema documented in this encounter Care Teams Drill Operator Automatic Relationship Specialty Start Date End Date Charan Quinn MD [address] [place] [phone] PCP - General Family Medicine 01/20/24 Bijal Antunez NP [address] [place] [phone] PCP - [facility] [employer] 12/14/23 Bijal Antunez NP [address] [place] [phone] Nurse Practitioner Family Medicine 01/20/24 documented as of this encounter
--- OUTSIDE RECORDS SUMMARY | 2025-03-01 17:56 | XMS_ITS | Encounter Summary ---
Author Organization [facility] Address [address] [place] [address] Care Team Providers Care Judicial Law Clerk Name Role Phone Charan Quinn MD Primary Care Provider [phone] Bijal Antunez COMMISSARY STEWARD Unavailable [phone] Bijal Antunez COMMISSARY STEWARD Unavailable [phone] Encounter Details Date Type Department Care Team (Late st Contact Info) Description 02/15/2025 Bamboo flowsheet [facility] [address] [place] [address] Bijal Antunez COMMISSARY STEWARD [address] [place] [address] Social History Tobacco Use Types [...] How often do you attend chur or zoroastrian services? 1 to 4 times per year 11/09/2024 Do you belong to any clubs o r organizations such as sikhism groups, unions, fraternal or athletic groups, or [...] place to sleep or slept in a group home (including now)? No 08/18/2023 Housing Stability [...] any time in the past 12 [facility], were you homeless or living in a group home (including now)? No 11/09/2024 Comments No [...] Visit [facility] [address] [place] [address] Bijal Antunez NP [address] [place] [phone] 02/22/2026 11:10 AM EDT Office Visit [facility] [address] [place] [address] Rose Taylor PA [address] [place] [address] documented as of this encounter Visit Diagnoses Not on filedocumented in this encounter Care Teams Judicial Law Clerk Relationship Specialty Start Date End Date Charan Quinn MD [address] [place] [phone] PCP - General Family Medicine 01/20/24 Bijal Antunez NP [address] [place] [phone] PCP - [facility] 12/14/23 Bijal Antunez NP [address] [place] [phone] Nurse Practitioner Family Medicine 01/20/24 documented as of this encounter
[2025-03-01 18:12] VITALS: BP 159/99; PULSE 86; TEMP 37.2; O2SAT 97; BMI 42.3
--- NOTE | 2025-03-01 18:23 | US_ITS ---
The [address] [address] Patient Name: WAYNE PIERRE MRN: [id number] date: 1965 Sex: F Assigned Patient Location: ER Current Patient Location: ER Accession/Order Number: [id number] Exam Date: 03/01/2025 20:37 Report Date: 03/01/2025 20:44 At the request of: LYDIA RINCON Procedure: US right upper quadrant EXAMINATION TYPE: US right upper quadrant DATE OF EXAM ORDERED: 03/01/2025 8:11 PM HISTORY: right upper quad pain, known cholithiasis, COMPARISON: 12/01/2024 TECHNIQUE: Realtime imaging limited to the right upper quadrant was performed. FINDINGS: Along the wall of the gallbladder is a mildly echogenic structure measuring 3.0 x 1.5 x 3.6 cm in greatest dimension. This is of uncertain etiology. The gallbladder wall measures 2 mm in thickness. The common bile but measures 4 mm in diameter. No intrahepatic or extrahepatic biliary dilatation is seen. The liver is echogenic in respect to the right renal cortex suggesting hepatic steatosis. There is hepatopedal flow the main portal vein. Partial visualization of the right kidney reveals no gross hydronephrosis. Partial visualization of the pancreas reveals no abnormality. US/US right upper quadrant IMPRESSION: Along the wall of the gallbladder is a mildly echogenic structure measuring 3.0 x 1.5 x 3.6 cm in greatest dimension. This is of uncertain etiology with a mass along the gallbladder wall is not excluded. There is internal echogenicity suggesting calcifications. This is in the location of the previously suspected stones. Follow-up with contrast-enhanced MRI may be helpful. No sonographic evidence of acute cholecystitis. Findings suggest hepatic steatosis. Impression dictated by: Marv Soni M.D. 03/01/2025 8:44 PM Dictation Location: [place] [address] Electronically authenticated by: [id number] Y Date: 03/01/2025 20:44
--- NOTE | 2025-03-01 18:41 | ED_ITS ---
Documented by User: Jen Andradeey 03/01/25 21:09 HPI - Abdominal Pain General Chief Complaint: Abdominal Pain Stated Complaint: Abdominal Pain Time Seen by Provider: 03/01/25 18:19 Source: patient Mode of arrival: walk-in Limitations: no limitations History of Present Illness HPI narrative: 59-year-old female with a known history of gallstones presents with right upper quadrant abdominal pain. She states right upper pain began this morning with nausea. She states her primary care physician had told her to get a surgeon in mind to have her gallbladder removed she had had an ultrasound of her gallbladder in November showing stones. Patient has right upper quadrant pain and tenderness with nausea. She is not currently febrile. She has not eat or drink anything since last evening. Related Data Previous Rx's ?Medication ?Instructions ?Recorded ondansetron HCl 4 mg tablet 4 mg PO Q8H PRN nausea 3 d ays #9 03/01/25 tabs Allergies Allergy/AdvReac Type Severity Reaction Status Date / Time ELISABETH Inhibitors Allergy Severe Swelling Verified 03/01/25 18:11 of Lip/Tongue/Throat Review of Systems ROS Status of ROS 10 or more systems reviewed and unremark able except as noted in history and below PFSH PFSH Social History Little interest or pleasure in doing things: not at all Feeling down, depressed, or hopeless: not at all Exam Narrative Exam Narrative: All Systems are negative except as noted/marked.All systems reviewed and otherwise negative Nurses note and vital signs reviewed and patient is not hypoxic. General: The patient appears well and in no apparent distress. Patient is resting comfortably on cart. Skin: Warm, dry, no pallor noted. There is no rash noted. Head: Normocephalic, atraumatic Eye: Normal conjunctiva, no drainage, EOMI. PERRL Ears, Nose, Mouth, and Throat: oral mucosa is moist. Nares patent. Mouth without vesicles. Ear canals patent. Tm's without Erythema Cardiovascular: Regular Rate and Rhythm Respiratory: Patient is in no distress, no accessory muscle use, lungs are clear to auscultation, no wheezing, rales or rhonchi GI: RUQ pain and tenderness with palpation. Normal bowel sounds, no tenderness to palpation, no masses appreciated. No rebound, guarding, or rigidity noted. Musculoskeletal: The patient has no evidence of calf tenderness, no pitting edema, symmetrical pulses noted bilaterally Neurological: A&O x4, normal speech Psychiatric: Cooperative Constitutional Vital Signs, click to edit/add: Last Vital Signs Temp 98.9 F 03/01/25 18:12 Pulse 86 03/01/25 18:12 Resp 14 03/01/25 21:34 BP 159/99 H 03/01/25 18:12 Pulse Ox 97 03/01/25 18:12 O2 Del Method Room Air 03/01/25 18:12 Course Vital Signs Vital signs: Vital Signs Temperature 98.9 F 03/01/25 18:12 Pulse Rate 86 03/01/25 18:12 Respiratory Rate 20 03/01/25 18:12 Blood Pressure 159/99 H 03/01/25 18:12 Pulse Oximetry 97 03/01/25 18:12 Oxygen Delivery Method Room Air 03/01/25 18:12 Temperature 98.9 F 03/01/25 18:12 Pulse Rate 86 03/01/25 18:12 Respiratory Rate 14 03/01/25 21:34 Blood Pressure 159/99 H 03/01/25 18:12 Pulse Oximetry 97 03/01/25 18:12 Oxygen Delivery Method Room Air 03/01/25 18:12 MDM - Abdominal Pain MDM Narrative Medical decision making narrative: 59-year-old female with a known history of gallstones presents with right upper quadrant abdominal pain. She states right upper pain began this morning with nausea. She states her primary care physician had told her to get a surgeon in mind to have her gallbladder removed she had had an ultrasound of her [facility] in November showing stones. Patient has right upper quadrant pain and tenderness with nausea. She is not currently febrile. She has not eat or drink anything since last evening. Upon arrival to the emergency room patient complained of right upper quadrant pain. She has no known history of Alexsandra ductal lithiasis. gall bladder US was performed to rule out cholelithiasis or cholecystitis. Lab work including CBC CMP liver enzymes were evaluated all within normal limits. Patient was medicated here with fluids Zofran and morphine. Her pain was subdued with morphine. Radiology reading of the ultrasound suggested a possible gallbladder mass I did suggest MRI. I explained results to the patient and gave her a copy of the ultrasound reading. She is going to follow-up with her primary care physician and also get in touch with her for referral for possible general surgeon. Patient agrees with plan of care reasons return to the emergency room were discussed discharged home with prescription of Zofran and [place]. Differential Diagnosis Differential diagnosis: Likely abdominal pain and other (biliary colic) Medical Records Attestation: I reviewed the patient's medical records. Lab Data Attestation: I reviewed the patient's lab results. Labs: Lab Results 03/01/25 03/01/25 Range/Units 18:40 18:45 WBC 9.3 (4.0-11.0) 10^3/uL RBC 4.06 L (4.20-5.40) 10^6/uL Hgb 13.0 (12.0-16.0) g/dL Hct 37.2 (36.0-48.0) % MCV 91.6 (81.0-99.0) fL MCH 32.0 (26.7-34.0) pg MCHC 34.9 (29.9-35.2) g/dL RDW 12.3 (11.0-15.0) % Plt Count 347 (150-450) 10^3/uL MPV 8.5 L (9.5-13.5) fL Neut % (Auto) 77.0 H (43.0-75.0) % Lymph % (Auto) 12.7 L (20.5-60.0) % [place] % (Auto) 5.6 (1.7-12.0) % Eos % (Auto) 3.9 (0.9-7.0) % Baso % (Auto) 0.5 (0.2-2.0) % Neut # (Auto) 7.2 H (1.4-6.5) 10^3/uL Lymph # (Auto) 1.2 (1.2-3.8) 10^3/uL [place] # (Auto) 0.5 (0.3-0.8) 10^3/uL Eos # (Auto) 0.4 (0.0-0.7) 10^3/uL Baso # (Auto) 0.1 (0.0-0.1) 10^3/uL Abs Immat Gran (auto) 0.03 (0.00-0.03) 10^3/uL Imm/Tot Granulo (auto) 0.3 (0.0-0.5) % Sodium 140 (136-145) mmol/L Potassium 3.3 L (3.5-5.1) mmol/L Chloride 99 (98-107) mmol/L Carbon Dioxide 32.3 H (21.0-32.0) mmol/L Anion Gap 12.0 BUN 13.0 (7.0-18.0) mg/dL Creatinine 0.61 (0.55-1.02) mg/dL Est GFR ( Amer) >60 (>=60 mL/min/1.73m^2) Est GFR (Non-Af Amer) >60 (>=60 mL/min/1.73m^2) BUN/Creatinine Ratio 21.3 Glucose 115 H (74-106) mg/dL Calcium 9.6 (8.5-10.1) mg/dL Total Bilirubin 0.4 (0.2-1.0) mg/dL AST 17 (15-37) U/L ALT 22 (14-59) U/L Alkaline Phosphatase 98 (46-116) U/L Troponin I High Sens <4.0 L (4.0-51.3) pg/mL Total Protein 7.4 (6.4-8.2) g/dL Albumin 3.3 L (3.4-5.0) g/dL Globulin 4.1 g/dL Albumin/Globulin Ratio 0.8 Lipase 13.0 L (16.0-77.0) U/L Urine Color Yellow (YELLOW) Urine Clarity Clear (CLEAR) Urine pH 7.0 (5.0-9.0) Ur Specific [place] 1.010 (1.005-1.025) Urine Protein Negative (NEG/TRACE) mg/dL Urine Glucose (UA) Negative (NEGATIVE) mg/dL Urine Ketones Negative (NEGATIVE) mg/dL Urine Occult Blood Negative (NEGATIVE) Urine Nitrite Negative (NEGATIVE) Urine Bilirubin Negative (NEGATIVE) Urine Urobilinogen 0.2 (0.2-1.0) EU/dL Ur Leukocyte Esterase Trace A (NEGATIVE) Urine RBC 0-2 (0-2) #/HPF Urine WBC 2-5 A (NONE SEEN) #/HPF Ur Squamous Epith Cells Moderate A (NONE/RARE) #/LPF Urine Crystals None seen (None Seen) #/HPF Urine Bacteria Trace A (NONE SEEN) #/HPF Urine Casts None seen (NONE SEEN) #/LPF Urine Mucus None seen (NONE SEEN) Ur Culture Indicated? No Imaging Data us: Radiologist's impression: ITS Impressions Upper Quadrant Ultrasound 03/01/25 18:23 IMPRESSION: Along the wall of the gallbladder is a mildly echogenic structure measuring 3.0 x 1.5 x 3.6 cm in greatest dimension. This is of uncertain etiology with a mass along the gallbladder wall is not excluded. There is internal echogenicity suggesting calcifications. This is in the location of the previously suspected stones. Follow-up with contrast-enhanced MRI may be helpful. No sonographic evidence of acute cholecystitis. Findings suggest hepatic steatosis. Impression dictated by: Marv Soni M.D. 03/01/2025 8:44 PM Dictation Location: [place] [address] Electronically authenticated by: [id number] Y Date: 03/01/2025 20:44 Discharge Plan Discharge Chief Complaint: Abdominal Pain Clinical Impression: Abdominal pain, Biliary colic Patient Disposition: Home, Self-Care Time of Disposition Decision: 20:58 Prescriptions / Home Meds: New ondansetron HCl 4 mg tablet 4 mg PO Q8H PRN (Reason: nausea) 3 Days Qty: 9 0RF Print Language: Lithuanian Instructions: Biliary Colic (ED), Abdominal Pain (ED) Additional Instructions: follow up with Bijal Stern for general surgery referral. return to er with worsening symptoms or uncontrolled fevers Referrals: Bijal Antunez NP [Primary Care Provider, Family Practice] - 1 week Documented by User: Pipo Mchugh MD 03/01/25 21:43 HPI - Abdominal Pain General Chief Complaint: Abdominal Pain Stated Complaint: Abdominal Pain Time Seen by Provider: 03/01/25 18:19 Related Data Previous Rx's ?Medication ?Instructions ?Recorded ondansetron HCl 4 mg tablet 4 mg PO Q8H PRN nausea 3 d ays #9 03/01/25 tabs Allergies Allergy/AdvReac Type Severity Reaction Status Date / Time ELISABETH Inhibitors Allergy Severe Swelling Verified 03/01/25 18:11 of Lip/Tongue/Throat PFSH PFSH Social History Little interest or pleasure in doing things: not at all Feeling down, depressed, or hopeless: not at all Exam Constitutional Vital Signs, click to edit/add: Last Vital Signs Temp 98.9 F 03/01/25 18:12 Pulse 86 03/01/25 18:12 Resp 14 03/01/25 21:34 BP 159/99 H 03/01/25 18:12 Pulse Ox 97 03/01/25 18:12 O2 Del Method Room Air 03/01/25 18:12 Course Vital Signs Vital signs: Vital Signs Temperature 98.9 F 03/01/25 18:12 Pulse Rate 86 03/01/25 18:12 Respiratory Rate 20 03/01/25 18:12 Blood Pressure 159/99 H 03/01/25 18:12 Pulse Oximetry 97 03/01/25 18:12 Oxygen Delivery Method Room Air 03/01/25 18:12 Temperature 98.9 F 03/01/25 18:12 Pulse Rate 86 03/01/25 18:12 Respiratory Rate 14 03/01/25 21:34 Blood Pressure 159/99 H 03/01/25 18:12 Pulse Oximetry 97 03/01/25 18:12 Oxygen Delivery Method Room Air 03/01/25 18:12 MDM - Abdominal Pain MDM Narrative Medical decision making narrative: 59-year-old female with a known history of gallstones presents with right upper quadrant abdominal pain. She states right upper pain began this morning with nausea. She states her primary care physician had told her to get a surgeon in mind to have her gallbladder removed she had had an ultrasound of her gallbladder in November showing stones. Patient has right upper quadrant pain and tenderness with nausea. She is not currently febrile. She has not eat or drink anything since last evening. Upon arrival to the emergency room patient complained of right upper quadrant pain. She has no known history of Alexsandra ductal lithiasis. gall bladder US was performed to rule out cholelithiasis or cholecystitis. Lab work including CBC CMP liver enzymes were evaluated all within normal limits. Patient was medicated here with fluids Zofran and morphine. Her pain was subdued with morphine. Radiology reading of the ultrasound suggested a possible gallbladder mass I did suggest MRI. I explained results to the patient and gave her a copy of the ultrasound reading. She is going to follow-up with her primary care physician and also get in touch with her for referral for possible general surgeon. Patient agrees with plan of care reasons return to the emergency room were discussed discharged home with prescription of Zofran and [place]. I, Dr Mchugh, have reviewed the above progress note and course of action in the ER; agree with the above. I have personally gone over history and physical, and discussed disposition and treatment plan with the PA. Patient was given a copy of her ultrasound report. Patient understands the concern for gallbladder mass, understands the importance of following up to have outpatient MRI done. No questions at discharge. Lab Data Labs: Lab Results 03/01/25 03/01/25 Range/Units 18:40 18:45 WBC 9.3 (4.0-11.0) 10^3/uL RBC 4.06 L (4.20-5.40) 10^6/uL Hgb 13.0 (12.0-16.0) g/dL Hct 37.2 (36.0-48.0) % MCV 91.6 (81.0-99.0) fL MCH 32.0 (26.7-34.0) pg MCHC 34.9 (29.9-35.2) g/dL RDW 12.3 (11.0-15.0) % Plt Count 347 (150-450) 10^3/uL MPV 8.5 L (9.5-13.5) fL Neut % (Auto) 77.0 H (43.0-75.0) % Lymph % (Auto) 12.7 L (20.5-60.0) % [place] % (Auto) 5.6 (1.7-12.0) % Eos % (Auto) 3.9 (0.9-7.0) % Baso % (Auto) 0.5 (0.2-2.0) % Neut # (Auto) 7.2 H (1.4-6.5) 10^3/uL Lymph # (Auto) 1.2 (1.2-3.8) 10^3/uL [place] # (Auto) 0.5 (0.3-0.8) 10^3/uL Eos # (Auto) 0.4 (0.0-0.7) 10^3/uL Baso # (Auto) 0.1 (0.0-0.1) 10^3/uL Abs Immat Gran (auto) 0.03 (0.00-0.03) 10^3/uL Imm/Tot Granulo (auto) 0.3 (0.0-0.5) % Sodium 140 (136-145) mmol/L Potassium 3.3 L (3.5-5.1) mmol/L Chloride 99 (98-107) mmol/L Carbon Dioxide 32.3 H (21.0-32.0) mmol/L Anion Gap 12.0 BUN 13.0 (7.0-18.0) mg/dL Creatinine 0.61 (0.55-1.02) mg/dL Est GFR ( Amer) >60 (>=60 mL/min/1.73m^2) Est GFR (Non-Af Amer) >60 (>=60 mL/min/1.73m^2) BUN/Creatinine Ratio 21.3 Glucose 115 H (74-106) mg/dL Calcium 9.6 (8.5-10.1) mg/dL Total Bilirubin 0.4 (0.2-1.0) mg/dL AST 17 (15-37) U/L ALT 22 (14-59) U/L Alkaline Phosphatase 98 (46-116) U/L Troponin I High Sens <4.0 L (4.0-51.3) pg/mL Total Protein 7.4 (6.4-8.2) g/dL Albumin 3.3 L (3.4-5.0) g/dL Globulin 4.1 g/dL Albumin/Globulin Ratio 0.8 Lipase 13.0 L (16.0-77.0) U/L Urine Color Yellow (YELLOW) Urine Clarity Clear (CLEAR) Urine pH 7.0 (5.0-9.0) Ur Specific [place] 1.010 (1.005-1.025) Urine Protein Negative (NEG/TRACE) mg/dL Urine Glucose (UA) Negative (NEGATIVE) mg/dL Urine Ketones Negative (NEGATIVE) mg/dL Urine Occult Blood Negative (NEGATIVE) Urine Nitrite Negative (NEGATIVE) Urine Bilirubin Negative (NEGATIVE) Urine Urobilinogen 0.2 (0.2-1.0) EU/dL Ur Leukocyte Esterase Trace A (NEGATIVE) Urine RBC 0-2 (0-2) #/HPF Urine WBC 2-5 A (NONE SEEN) #/HPF Ur Squamous Epith Cells Moderate A (NONE/RARE) #/LPF Urine Crystals None seen (None Seen) #/HPF Urine Bacteria Trace A (NONE SEEN) #/HPF Urine Casts None seen (NONE SEEN) #/LPF Urine Mucus None seen (NONE SEEN) Ur Culture Indicated? No Imaging Data us: Radiologist's impression: ITS Impressions Upper Quadrant Ultrasound 03/01/25 18:23 IMPRESSION: Along the wall of the gallbladder is a mildly echogenic structure measuring 3.0 x 1.5 x 3.6 cm in greatest dimension. This is of uncertain etiology with a mass along the gallbladder wall is not excluded. There is internal echogenicity suggesting calcifications. This is in the location of the previously suspected stones. Follow-up with contrast-enhanced MRI may be helpful. No sonographic evidence of acute cholecystitis. Findings suggest hepatic steatosis. Impression dictated by: Marv Soni M.D. 03/01/2025 8:44 PM Dictation Location: [place] [address] Electronically authenticated by: [id number] Y Date: 03/01/2025 20:44 Discharge Plan Discharge Chief Complaint: Abdominal Pain Clinical Impression: Abdominal pain, Biliary colic Patient Disposition: Home, Self-Care Time of Disposition Decision: 20:58 Prescriptions / Home Meds: New ondansetron HCl 4 mg tablet 4 mg PO Q8H PRN (Reason: nausea) 3 Days Qty: 9 0RF Print Language: Lithuanian Instructions: Biliary Colic (ED), Abdominal Pain (ED) Additional Instructions: follow up with Bijal Stern for general surgery referral. return to er with worsening symptoms or uncontrolled fevers Referrals: Bijal Antunez NP [Primary Care Provider, Family Practice] - 1 week
[2025-03-01] MEDS: ONDANSETRON PF 4 MG/2 ML VIAL IV (18:53)
[2025-03-01] MEDS: 0.9 % SODIUM CHLORIDE 1,000 ML 1000 ML IV (18:53)
[2025-03-01] MEDS: KETOROLAC TROMETHAMINE 30 MG/ML VIAL IVP (18:53)
[2025-03-01 18:57] LABS: Basophils Absolute Auto 0.1 10^3/uL (0.0-0.1); Basophils Percent Auto 0.5 % (0.2-2.0); Eosinophils Absolute Auto 0.4 10^3/uL (0.0-0.7); Eosinophils Percent Auto 3.9 % (0.9-7.0); Hematocrit 37.2 % (36.0-48.0); Immature Granulocytes Abs Auto 0.03 10^3/uL (0.00-0.03); Immature Granulocytes Pct Auto 0.3 % (0.0-0.5); Lymphocytes Absolute Auto 1.2 10^3/uL (1.2-3.8); Lymphocytes Percent Auto 12.7 % (20.5-60.0); Mean Corpuscular HGB Conc 34.9 g/dL (29.9-35.2); Mean Corpuscular Volume 91.6 fL (81.0-99.0); Mean Platelet Volume 8.5 fL (9.5-13.5); Monocytes Absolute Auto 0.5 10^3/uL (0.3-0.8); Monocytes Percent Auto 5.6 % (1.7-12.0); Neutrophils Absolute Auto 7.2 10^3/uL (1.4-6.5); Platelet Count 347 10^3/uL (150-450); Red Blood Count 4.06 10^6/uL (4.20-5.40); Red Cell Distribution Width 12.3 % (11.0-15.0); White Blood Count 9.3 10^3/uL (4.0-11.0)
[2025-03-01 19:06] LABS: Bilirubin Urine NEGATIVE (NEGATIVE); Blood Urine NEGATIVE (NEGATIVE); Clarity Urine CLEAR (CLEAR); Color Urine YELLOW (YELLOW); Glucose Urine UA NEGATIVE (NEGATIVE); Ketones Urine NEGATIVE (NEGATIVE); Leukocyte Esterase Urine TRACE (NEGATIVE); Nitrite Urine NEGATIVE (NEGATIVE); Protein Urine NEGATIVE (NEG/TRACE); Urobilinogen Urine 0.2 EU/dL (0.2-1.0)
[2025-03-01 19:22] LABS: Alanine Aminotransferase 22 U/L (14-59); Albumin Globulin Ratio 0.8; Albumin Level 3.3 g/dL (3.4-5.0); Alkaline Phosphatase 98 U/L (46-116); Aspartate Amino Transferase 17 U/L (15-37); BUN Creatinine Ratio 21.3; Bilirubin Total 0.4 mg/dL (0.2-1.0); Calcium 9.6 mg/dL (8.5-10.1); Carbon Dioxide 32.3 mmol/L (21.0-32.0); Chloride 99 mmol/L (98-107); Estimated GFR (African America >60 (>=60 mL/min/1.73m^2); Estimated GFR (Non-African Ame >60 (>=60 mL/min/1.73m^2); Globulin 4.1 g/dL; Glucose 115 mg/dL (74-106); Potassium 3.3 mmol/L (3.5-5.1); Sodium 140 mmol/L (136-145); Total Protein 7.4 g/dL (6.4-8.2); Troponin I High Sensitivity <4.0 pg/mL (4.0-51.3)
[2025-03-01 19:27] LABS: Bacteria Urine TRACE #/HPF (NONE SEEN); Mucus Urine NONE SEEN (NONE SEEN); RBC Urine 0-2 #/HPF (0-2); Squamous Epithelial Cell Urine MODERATE #/LPF (NONE/RARE)
[2025-03-01 19:28] LABS: Cast Seen? NONE SEEN #/LPF (NONE SEEN); Crystals Seen? None Seen #/HPF (None Seen); Urine Culture Indicated NO
[2025-03-01] MEDS: MORPHINE SULFATE 2 MG/ML SYRINGE IV (20:28)
== END 2025-03-01 21:36 | disposition home or self-care (01) ==
PROVIDERS: Physician Assistant; Emergency Provider Emergency Medicine; PCP Nurse Practitioner
DX: R10.11 Right upper quadrant pain (principal); R11.0 Nausea; K80.70 Calculus of gallbladder and bile duct without cholecystitis without obstruction
CPT/HCPCS: 36415; 76705; 80053; 81001; 83690; 84484; 85025; 96374; 96375; 99285; J1885; J2270; J2405

== ENCOUNTER 2025-03-10 11:46 | Outpatient (OUT) | payer BC, SELFPAY ==
--- NOTE | 2025-03-10 11:54 | US_ITS ---
The [address] [address] Patient Name: WAYNE PIERRE MRN: [id number] date: 1965 Sex: F Assigned Patient Location: US Current Patient Location: US Accession/Order Number: [id number] Exam Date: 03/10/2025 12:50 Report Date: 03/10/2025 12:56 At the request of: MIKEY CEDEÑO NP Procedure: US thyroid US thyroid 03/10/2025 12:13 PM SIGNS AND SYMPTOMS: ^Thyroid Nodule E04.1 COMPARISON: 01/10/2022 FINDINGS: Right and left thyroid lobes are normal in size and echotexture. The right thyroid lobe measures 4.3 x 2.2 x 2.0 cm and the left thyroid lobe measures 1.4 x 0.6 x 0.7 cm. The isthmus measures 0.3 cm. In the interpolar region on the right there is an echogenic margins SMOOTHLY marginated 9 x 8 x 9 mm solid appearing cysts mass without adjacent to this.. There is an additional echogenic solid appearing with a marked in the slightly nodule which is not smaller than wide. No accompanying calcifications. This is adjacent to the larger nodule. In the interpolar region of the left thyroid lobe there is a similar 1.4 x 0.2 x 0.6 cm wider than tall smoothly marginated hypoechoic solid-appearing structure which is similar to perhaps slightly larger when compared to the prior exam. No cervical lymphadenopathy is noted. US/US thyroid IMPRESSION: TIRADS: 4 (moderately suspicious) Moderately suspicious nodules are redemonstrated without significant interval change when compared to 2021 exam. This would represent a 3 year follow-up study. Recommendation: Continued interval follow-up is recommended at year 5 (2026). Impression dictated by: Marv Soni M.D. 03/10/2025 12:56 PM Dictation Location[facility] Electronically authenticated by: [id number] Date: 03/10/2025 12:56
--- OUTSIDE RECORDS SUMMARY | 2025-03-10 12:04 | XMS_ITS | CCD ---
Author Organization [facility] Care Team Providers Care Supervisor Boat [employer] Name Role Phone AICHHOLZ, SENIOR CLINICAL DATA MANAGER BIJAL Attending Unavailable AICHHOLZ, SENIOR CLINICAL DATA MANAGER BIJAL Admitting Unavailable AICHHOLZ, SENIOR CLINICAL DATA MANAGER BIJAL Primary Care Unavailable AICHHOLZ, SENIOR CLINICAL DATA MANAGER BIJAL Consulting Unavailable AICHHOLZ, SENIOR CLINICAL DATA MANAGER BIJAL Primary Care Unavailable RAF NGUYEN Attending Unavailable PATRICK, RAF Admitting Unavailable Destin Mcdonough Consulting Unavailable RAF NGUYEN Consulting Unavailable AICHHOLZ, SENIOR CLINICAL DATA MANAGER BIJAL Primary Care Unavailable RAF NGUYEN Attending Unavailable PATRICK RAF Admitting Unavailable LOWBER, DR MEGAN Glaser Consulting Unavailable PATRICK, RAF Consulting Unavailable AICHHOLZ, SENIOR CLINICAL DATA MANAGER BIJAL Primary Care Unavailable TIMMIS, DR DIXON Attending Unavailable TIMMIS, DR DIXON Admitting Unavailable TIMMIS, DR DIXON Consulting Unavailable AICHHOLZ, SENIOR CLINICAL DATA MANAGER BIJAL Primary Care Unavailable PATRICK RAF Attending Unavailable Destin Mcdonough Consulting Unavailable PATRICK, RAF Admitting Unavailable RAF NGUYEN Consulting Unavailable AICHHOLZ, SENIOR CLINICAL DATA MANAGER BIJAL Consulting Unavailable AICHHOLZ, SENIOR CLINICAL DATA MANAGER BIJAL Attending Unavailable AICHHOLZ, SENIOR CLINICAL DATA MANAGER BIJAL Admitting Unavailable AICHHOLZ, SENIOR CLINICAL DATA MANAGER BIJAL Primary Care Unavailable AICHHOLZ, SENIOR CLINICAL DATA MANAGER BIJAL Primary Care Unavailable DEVEN RIVAS Admitting Unavailable DEVEN RIVAS Consulting Unavailable DEVEN RIVAS Attending Unavailable MEGAN ZAMBRANO Consulting Unavailable KO ., FAROOQ Admitting Unavailable AICHHOLZ, SENIOR CLINICAL DATA MANAGER BIJAL Primary Care Unavailable KO ., FAROOQ Attending Unavailable KO ., FAROOQ Attending Unavailable KO ., FAROOQ Admitting Unavailable AICHHOLZ, SENIOR CLINICAL DATA MANAGER BIJAL Primary Care Unavailable KO ., FAROOQ Consulting Unavailable AICHHOLZ, SENIOR CLINICAL DATA MANAGER BIJAL Primary Care Unavailable DEVEN RIVAS Admitting Unavailable DR MEGAN DANGELO V Consulting Unavailable DEVEN RIVAS Attending Unavailable DEVEN RIVAS Consulting Unavailable AICHHOLZ, SENIOR CLINICAL DATA MANAGER BIJAL Attending Unavailable AICHHOLZ, SENIOR CLINICAL DATA MANAGER BIJAL Admitting Unavailable AICHHOLZ, SENIOR CLINICAL DATA MANAGER BIJAL Primary Care Unavailable DR MEGAN DANGELO V Consulting Unavailable AICHHOLZ, GLENNY BIJAL Consulting Unavailable AICHHOLZ, SENIOR CLINICAL DATA MANAGER BIJAL Attending Unavailable AICHHOLZ, SENIOR CLINICAL DATA MANAGER BIJAL Admitting Unavailable AICHHOLZ, SENIOR CLINICAL DATA MANAGER BIJAL Primary Care Unavailable AICHHOLZ, SENIOR CLINICAL DATA MANAGER BIJAL Consulting Unavailable AICHHOLZ, SENIOR CLINICAL DATA MANAGER BIJAL Primary Care Unavailable DEVEN RIVAS Attending Unavailable DEVEN RIVAS Admitting Unavailable Destin Mcdonough Consulting Unavailable DEVEN RIVAS Consulting Unavailable Charan Quinn MD Primary Care Provider Aichholz MANUAL WINDER, Bijal Unavailable Aichholz MANUAL WINDER, Bijal Unavailable NON STAFF Attending Unavailable NON STAFF Admitting Unavailable Unavailable Primary Care Provider UnavailSHERIF Romero Referring Unavailable AICHHOLZ, BIJAL J Primary Care Unavailable MONICA CELESTIN Attending Unavailable AICHHOLZ, BIJAL Attending Unavailable AICHHOLZ, BIJAL Attending Unavailable YANIRA TAYLOR Attending Unavailable AICHHOLZ, BIJAL Referring Unavailable AICHHOLZ, BIJAL Attending Unavailable DESTINY YANG Attending Unavailable AICHHOLZ, BIJAL Attending Unavailable AICHHOLZ, BIJAL Attending Unavailable AICHHOLZ, BIJAL Attending Unavailable HUMBERTO BARAKAT Attending Unavailable Allergies Allergy Classification Reported Allergen(s) Allergy Type Date of Onset Reaction(s) Facility (15 sources) Angiotensin-conv erting enzyme inhibitor agent Propensity to adverse reactions 5 Angioedema [facility] Medications Current Medications Medication Drug Class(es) Dates Sig (Normalized) Sig (Original) acetaminophen 325 mg / HYDROcodone bitartrate 5 mg oral tablet (3 sources) Opioid Agonist Start: 5 End: 5 take 1 tablet by mouth every eight hours for pain HYDROcodone-acetamino phen ([place]) 5-325 MG tablet Indications: Postprandial RUQ pain , Mass of gallbladder Take 1 tablet by mouth every 8 (eight) hours if needed for severe pain for up to 5 days 15 tablet 03/03/2025 03/08/2025 Active [id number] 200 actuat albuterol 0.09 mg/actuat metered dose inhaler (20 sources) beta2-Adrenergic Agonist Start: 4 take 2 puff(s) by inhalation every four hours for wheezing albuterol HFA 90 mcg/act inhaler Indications: Wheezing Inhale 2 puffs every 4 (four) hours if needed for wheezing 18 g 2 11/09/2023 Active amoxicillin 500 mg oral capsule (2 sources) Penicillin-class Antibacterial Start: 5 End: 5 take 1 capsule by mouth in the morning amoxicillin (Amoxil) 500 MG capsule Indications: UTI symptoms Take 1 capsule (500 mg) by mouth in the morning and 1 capsule (500 mg) before bedtime. Do all this for 7 days. 14 capsule 09/19/2024 09/26/2024 Active amoxicillin 875 mg / clavulanate 125 mg oral tablet (3 sources) Penicillin-class Antibacterial Start: 4 End: 4 take 1 tablet by mouth in the morning amoxicillin-clavulana te (Augmentin) 875-125 MG tablet Indications: Acute non-recurrent maxillary sinusitis Take 1 tablet (875 mg) by mouth in the morning and 1 tablet (875 mg) before bedtime. Do all this for 10 days. Take with food. 20 tablet 08/17/2024 08/27/2024 Active atorvastatin 40 mg oral tablet (20 sources) HMG-CoA Reductase Inhibitor Start: 4 End: 5 take 1 tablet by mouth at bedtime atorvastatin (Lipitor) 40 MG tablet Indications: Pure hyperglyceridemia Take 1 tablet (40 mg) by mouth at bedtime 90 tablet 1 02/15/2025 05/16/2025 Active betamethasone 0.5 mg/ml / clotrimazole 10 mg/ml topical lotion (4 sources) Azole Antifungal, Corticosteroid Start: 5 End: clotrimazole-betameth asone (Lotrisone) lotion Indications: Rash and other nonspecific skin eruption Apply topically in the morning and before bedtime. Do all this for 7 days. 30 mL 02/08/2025 02/15/2025 Active carvedilol 3.125 mg oral tablet (17 sources) alpha-Adrenergic Paulette, beta-Adrenergic Paulette Start: End: take 1 tablet by mouth in the morning carvedilol (Coreg) 3.125 MG tablet Indications: Primary hypertension Take 1 tablet (3.125 mg) by mouth in the morning and 1 tablet (3.125 mg) in the evening. Take with meals. 180 tablet 1 02/15/2025 05/16/2025 Active cholecalciferol 0.025 mg oral tablet (20 sources) Vitamin D Start: End: take 1 tablet by mouth once daily, then take 1 tablet by mouth once daily cholecalciferol (Vitamin D-3) 25 MCG tablet Indications: Vitamin D deficiency Take 1 tablet (25 mcg) by mouth Daily Take 1 tablet by mouth Daily 90 tablet 1 02/15/2025 05/16/2025 Active take 3 tablets by mouth in the m orning cholecalciferol (Vitamin D-3) 25 MCG tablet Take 3 tablets by mouth in the morning. Active cyclobenzaprine hydrochloride 10 mg oral tablet (20 sources) Muscle Relaxant Start: 02-15-2025 End: 05-16-2025 cyclobenzaprine (Flexeril) 10 MG tablet Indications: Other chronic pain Take 1 tablet (10 mg) by mouth as needed at bedtime for muscle spasms 90 tablet 1 02/15/2025 05/16/2025 Active End: 02-15-2025 cyclobenzaprine (Flexeril) 5 MG tablet Take 1 tablet by mouth as needed at bedtime for muscle spasms 02/15/2025 Discontinued (Reorder) Elastic Bandages & Supports (JOBST KNEE HIGH COMPRESSION SM) misc (20 sources) Elastic Bandages & Supports (JOBST KNEE HIGH COMPRESSION SM) misc 1 Units in the morning. Jobst UltraSheer 20-30 mmHg Large - knee high compression hose. On in AM off in PM. Active estradiol 2 mg oral tablet (20 sources) Estrogen Start: 08-19-2024 End: 08-22-2024 take 1 tablet [...] Active ferrous sulfate 325 mg oral tablet (20 sources) take 1 tablet by ralph th at mealtime ferrous sulfate 325 (65 Fe) MG tablet Take 325 mg by mouth in the morning. Take with meals. Active ferrous sulfate 325 (65 Fe) MG tablet Take 325 mg by mouth every 12 (twelve) hours. Active fexofenadine hydrochloride 180 mg oral tablet (20 sources) Histamine-1 Receptor Antagonist take 1 tablet by mouth in the morning fexofenadine (Conchis) 180 MG tablet Take 180 mg by mouth in the morning. Active hydroCHLOROthiazide 25 mg oral tablet (20 sources) Thiazide Diuretic Start: 2023 End: 2024 take 1 tablet by mouth twice daily as needed hydroCHLOROthiazide (HYDRODiuril) 25 MG tablet Indications: Bilateral lower extremity edema , Essential (primary) hypertension Take 1 tablet (25 mg) by mouth 2 (two) times a day as needed (swelling) 180 tablet 1 02/15/2025 05/16/2025 Active ibuprofen 800 mg oral tablet (20 sources) Nonsteroidal Anti-inflammatory Drug Start: 2024 End: 2024 take 1 tablet by mouth three times daily as needed for pain ibuprofen 800 MG tablet Indications: Other chronic pain Take 1 tablet (800 mg) by mouth 3 (three) times a day as needed for moderate pain 90 tablet 1 02/06/2025 03/08/2025 Active Start: 12-28-2023 End: 09-07-2024 take 1 tablet by mouth three times daily as needed for pain ibuprofen 800 MG tablet Indications: Other chronic pain Take 1 tablet (800 mg) by mouth 3 (three) times a day as needed for moderate pain 90 tablet 1 08/08/2024 09/07/2024 Active levothyroxine sodium 0.15 mg oral tablet (20 sources) l-Thyroxine Start: 04-04-2024 End: 05-16-2025 take 1 tablet by mouth before mealtime levothyroxine (Synthroid) 150 MCG tablet Indications: Acquired hypothyroidism Take 1 tablet (150 mcg) by mouth in the morning. Take before meals. 90 tablet 1 02/15/2025 05/16/2025 Active lisinopril 20 mg oral tablet (20 sources) Angiotensin Converting Enzyme Inhibitor Start: 02-18-2024 End: 12-30-2024 take 1 tablet by mouth once daily lisinopril 20 MG tablet Indications: Essential (primary) hypertension (CMS/HCC) Take 1 tablet (20 mg) by mouth Daily 90 tablet 1 08/17/2024 12/30/2024 Discontinued (Side effects) nystatin [id number] unt/ml / triamcinolone acetonide 1 mg/ml topical cream (20 sources) Polyene Antifungal, Corticosteroid Start: 11-16-2024 nystatin-triamcinol one (Mycolog II) cream Indications: Rash Apply 1 application topically every 12 (twelve) hours 15 g 3 11/16/2024 Active nystatin-triamci nolone (Mycolog II) cream Apply 1 application topically every 12 (twelve) hours. Active ondansetron 4 mg oral tablet (4 sources) Serotonin-3 Receptor Antagonist Start: 03-02-2025 End: 03-16-2025 take 1 tablet by mouth every eight hours for nausea ondansetron (Zofran) 4 MG tablet Indications: Postprandial RUQ pain , Abnormal gallbladder ultrasound Take 1 tablet (4 mg) by mouth every 8 (eight) hours if needed for nausea for up to 10 days 30 tablet 03/06/2025 03/16/2025 Active Semaglutide-Weight Management (Wegovy) 2.4 MG/0.75ML solution auto-injector (13 sources) Start: 08-17-2024 End: 09-14-2024 Semaglutide-Weight Management (Wegovy) 2.4 MG/0.75ML solution auto-injector [...] (BMI) of 45.0 to 49.9 in adult ([facility]) Inject 2.4 mg under the skin every 7 (seven) days for 28 days g 3 mL 1 08/10/2024 08/17/2024 Discontinued (Reorder) Start: 08-10-2024 End: 09-07-2024 Semaglutide-Weight Managemen t (Wegovy) 2.4 MG/0.75ML solution auto-injector Indications: Class 3 severe obesity due to excess calories without serious comorbidity with body mass index (BMI) of 45.0 to 49.9 in adult ([facility]) Inject 2.4 mg under the skin every 7 (seven) days for 28 days g 3 mL 1 08/10/2024 09/07/2024 Active Start: 05-25-2024 End: 06-22-2024 Semaglutide-Weight Managemen t (Wegovy) 2.4 MG/0.75ML solution auto-injector Indications: Class 3 severe obesity due to excess calories without serious comorbidity with body mass index (BMI) of 45.0 to 49.9 in adult ([facility]) Inject 2.4 mg under the skin every [...] (BMI) of 40.0 to 44.9 in adult ([facility]) Inject 2.5 mg under the skin 1 [...] 45.0 to 49.9 in adult ([facility]) Inject 1.7 mg under the skin every 7 (seven) days for 28 days 3 mL 04/29/2024 05/25/2024 Discontinued (Therapy completed) Start: 04-29-2024 End: 05-27-2024 Semaglutide-Weight Managemen t (Wegovy) 1.7 MG/0.75ML solution auto-injector Indications: Class 3 severe obesity due to excess calories without serious comorbidity with body mass index (BMI) of 45.0 to 49.9 in adult ([facility]) Inject 1.7 mg under the skin every 7 (seven) days for 28 days 3 mL 04/29/2024 05/27/2024 Active Problems Active Problems Problem Classification Problem Date Documented Date Episodic/Chronic Abdominal pain (20 sources) Right upper quadrant pain; Translations: [Right upper quadrant pain] Onset: 11-15-2024 11-15-2024 Episodic Administrative/social admission (2 sources) Encounter for pre-employment examination; Translations: [Encounter for pre-employment examination] Onset: 11-08-2024 Episodic Allergic reactions (1 source) Allergic reaction Onset: 12-29-2024 Episodic Biliary tract disease (11 sources) Gallbladder mass; Translations: [Other specified diseases of gallbladder] Onset: 03-03-2025 03-03-2025 Episodic Disorders of lipid metabolism (20 sources) Hyperlipidemia, unspecified; Translations: [Pure hyperglyceridemia] Onset: 06-28-2022 Chronic Essential hypertension (20 sources) Essential (primary) hypertension; Translations: [Essential hypertension] Onset: 01-17-2023 Chronic Menopausal disorders (1 source) Drug therapy finding; Translations: [Hormone replacement therapy] 08-19-2024 Episodic Neoplasms of unspecified nature or uncertain behavior (14 sources) Neoplastic disease of uncertain behavior; Translations: [Neoplasm of uncertain behavior, unspecified] Onset: 02-15-2025 02-15-2025 Episodic Nutritional deficiencies (12 sources) Vitamin D deficiency; Translations: [Vitamin D deficiency, unspecified] Onset: 02-15-2025 02-15-2025 Chronic Other and unspecified benign neoplasm (2 sources) Melanocytic nevus of upper limb; Translations: [Melanocytic nevi of unspecified upper limb, including shoulder] 02-23-2025 Episodic Other and unspecified benign neoplasm (2 sources) Melanocytic nevi of other parts of face; Translations: [Benign neoplasm of skin of other and unspecified parts of face] 02-23-2025 Episodic Other and unspecified benign neoplasm (2 sources) Melanocytic nevus of trunk; Translations: [Melanocytic nevi of trunk] 02-23-2025 Episodic Other connective tissue disease (4 sources) Peroneal tendinitis, right leg; Translations: [PERONEAL TENDINITIS RIGHT LEG] Onset: 10-24-2022 Episodic Other injuries and conditions due to external causes (1 source) Angioneurotic edema, initial encounter; Translations: [Angioneurotic edema, initial encounter] Onset: 12-29-2024 Episodic Other nervous system disorders (1 source) Other specified mononeuropathies; Translations: [OTHER SPECIFIED MONONEUROPATHIES] Onset: 10-31-2022 Chronic Other nervous system disorders (1 source) Polyneuropathy, unspecified; Translations: [POLYNEUROPATHY UNSPECIFIED] Onset: 04-08-2022 Chronic Other nervous system disorders (20 sources) Chronic pain; Translations: [Other chronic pain] Onset: 08-08-2024 08-08-2024 Chronic Other nutritional; endocrine; and metabolic disorders (1 source) Obesity, unspecified; Translations: [OBESITY UNSPECIFIED] Onset: 04-08-2022 Chronic Other nutritional; endocrine; and metabolic disorders (20 sources) Severe obesity; Translations: [Class 3 severe obesity without serious comorbidity in adult] Onset: 08-20-2023 08-20-2023 Chronic Other nutritional; endocrine; and metabolic disorders (20 sources) Body mass index 40+ - severely obese; Translations: [Body mass index (BMI) 45.0-49.9, adult] Onset: 08-17-2024 08-17-2024 Chronic Other screening for suspected conditions (not mental disorders or infectious disease) (20 sources) Encounter for screening mammogram for malignant neoplasm of breast; Translations: [Cancer cervix screening status] Onset: 10-28-2022 Episodic Other skin disorders (1 source) Facial swelling Onset: 12-29-2024 Episodic Other skin disorders (2 sources) Lentigo simplex; Translations: [Other melanin hyperpigmentation] 02-23-2025 Episodic Other skin disorders (2 sources) Seborrheic keratosis; Translations: [Other seborrheic keratosis] 02-23-2025 Episodic Other skin disorders (2 sources) Skin tag; Translations: [Other hypertrophic disorders of the skin] 02-23-2025 Episodic Residual codes; unclassified (1 source) Family [...] Resolved: 11-15-2024 08-18-2023 Episodic Headache; including migraine (20 sources) Headache; Translations: [Headache] Onset: 04-14-2024 Resolved: 04-14-2024 04-14-2024 Episodic Inflammatory diseases of female pelvic organs (20 sources) Chronic vulvovaginitis; Translations: [Subacute and chronic vaginitis] Onset: 02-24-2023 Resolved: 02-24-2023 02-24-2023 Episodic Other circulatory disease (20 sources) Pulmonary congestion ; Translations: [Other specified symptoms and signs involving the circulatory and respiratory systems] Onset: 04-14-2024 Resolved: 04-14-2024 04-14-2024 Episodic Other connective tissue disease (1 source) Pain in right foot; Translations: [PAIN IN RIGHT FOOT] Onset: 10-15-2022 Episodic Other connective tissue disease (4 sources) Pain in left foot; Translations: [PAIN IN LEFT FOOT] Onset: 08-13-2022 Episodic Other connective tissue disease (20 sources) Plantar fasciitis of right foot; Translations: [Plantar fascial fibromatosis] Onset: 05-25-2024 05-25-2024 Episodic Other nervous system disorders (20 sources) Difficulty walking; Translations: [Difficulty in walking, not elsewhere classified] Onset: 02-24-2023 Resolved: 02-24-2023 02-24-2023 Chronic Other non-traumatic joint disorders (4 sources) Pain in right ankle and joints of right foot; Translations: [PAIN IN RIGHT ANKLE] Onset: 10-14-2022 Episodic Other nutritional; endocrine; and metabolic disorders (20 sources) Obesity caused by energy imbalance; Translations: [Morbid (severe) obesity due to excess calories] Onset: 08-17-2024 Resolved: 08-17-2024 08-17-2024 Chronic Other skin disorders (20 sources) Eruption; Translations: [Rash and other nonspecific skin eruption] Onset: 01-20-2024 01-20-2024 Episodic Other upper respiratory infections (20 sources) Viral upper respiratory tract infection; Translations: [Acute upper respiratory infection, unspecified] Onset: 11-09-2023 Resolved: 11-15-2024 05-25-2024 Episodic Residual codes; unclassified (20 sources) Bilateral lower limb edema; Translations: [Localized edema] Onset: 09-08-2023 09-08-2023 Episodic Results Test Name Value Interpretation Reference Range Facility MM TOMOSYNTHESIS SCREENING B Ion 01-12-2025 [place] [address] Mammography Report Signed Patient: ARIANNA LOZADA MR#: [id number] : 1965 Acct:[id number] Age/Sex: 59 / F ADM Date: 01/12/25 Loc: MAMMO Attending Dr: HUMBERTO BARAKAT Ordering Physician: HUMBERTO ABRAKAT Results: Date of Service: 01/12/25 Follow Up: Procedure(s): MM tomosynthesis screening BI Accession Number(s): [id number] cc: Bijal Antunez MANUAL WINDER; HUMBERTO BARAKAT Patient Name: ARIANNA LOZADA MR#: [id number] : 1965 Exam Date: 01/12/2025 Ordering Doctor: DR HUMBERTO BARAKAT RADIOLOGY REPORT PROCEDURE: MM TOMOSYNTHESIS SCREENING BI [...] myeloma cancer at age 74. LOCATION: [facility] BREAST COMPOSITION: There are scattered areas of [...] Signed By: 01/12/25 1633 DD/ 1632 TD/TT: Lens Grinder: [facility] Radiology, Radiologist, MD - 01/12/2025 [place] [address] Mammography Report Signed Patient: ARIANNA LOZADA MR#: [id number] : 1965 Acct:[id number] Age/Sex: 59 / F ADM Date: 01/12/25 Loc: MAMMO Attending Dr: HUMBERTO BARAKAT Ordering Physician: HUMBERTO BARAKAT Results: Date of Service: 01/12/25 Follow Up: Procedure(s): MM tomosynthesis screening BI Accession Number(s): [id number] cc: Bijal Antunez MANUAL WINDER; HUMBERTO BARAKAT Patient Name: ARIANNA LOZADA MR#: [id number] : 1965 Exam Date: 01/12/2025 Ordering Doctor: DR HUMBERTO BARAKAT RADIOLOGY REPORT PROCEDURE: MM TOMOSYNTHESIS SCREENING BI [...] myeloma cancer at age 74. LOCATION: [facility] BREAST COMPOSITION: There are scattered areas of [...] Lux M.D. Signed By: 01/12/25 1633 DD/ 31 TD/TT: Lens Grinder: [facility] Radiology Study observation (narrative) [facility] MM TOMOSYNTHESIS SCREENING B IOrdered By: Radiologist Radiology on 01-12-2025 [facility] RADSONEcar e Work Phone: BASIC METABOLIC PANLon 12-29 Anion gap [Moles/Vol] 12 mmol/L Normal 5-15 [facility] Comment on above: Performed By: #### C BCA, BMP #### [facility] ([id number]) [address] [place] [phone] Calcium [Mass/Vol] 9.2 mg/dL Normal 8.5-10.5 [facility] Comment on above: Performed By: #### C BCA, BMP #### [facility] ([id number]) [address] [place] [address] Chloride [Moles/Vol] 99 mmol/L Normal 98-109 [facility] Comment on above: Performed By: #### C BCA, BMP #### [facility] ([id number]) [address] [place] [address] 44941 CO2 [Moles/Vol] 25 mmol/L Normal 22-32 [facility] Comment on above: Performed By: #### C BCA, BMP #### [facility] ([id number]) [address] [place] [address] 20186 Creatinine [Mass/Vol] 0.59 mg/dL Normal 0.40-1.00 [facility] Comment on above: Result Comment: METH OD TRACEABLE TO IDMS STANDARD Performed By: #### C BCA, BMP #### [facility] ([id number]) [address] [place] [phone] eGFR (CKD-EPI) NON-RACE DEPENDENT >90 Normal >59 [facility] Comment on above: Result Comment: Reported eGFR is based on the CKD-EPI 2020 equation that does not use a race coefficient. Performed By: #### C KALEE, BMP #### [facility] ([id number]) [address] [place] [address] 59552 Glucose [Mass/Vol] 112 mg/dL High 65-99 [facility] Comment on above: Performed By: #### C KALEE, BMP #### [facility] ([id number]) [address] [place] [address] 14842 Potassium [Moles/Vol] 3.5 mmol/L Normal 3.5-5.0 [facility] Comment on above: Performed By: #### C KALEE, BMP #### [facility] ([id number]) [address] [place] [address] 67898 Sodium [Moles/Vol] 136 mmol/L Normal 134-146 [facility] Comment on above: Performed By: #### C KALEE, BMP #### [facility] ([id number]) [address] [place] [address] 84722 Urea nitrogen [Mass/Vol] 29 mg/dL High 5-23 [facility] Comment on above: Performed By: #### C KALEE, BMP #### [facility] ([id number]) [address] [place] [address] 04929 CBC AND AUTO DIFFon 04-17-20 25 ABSOLUTE BASOPHIL 0.0 X10E9/L Normal 0.0-0.2 [facility] Comment on above: Performed By: #### C BCA, BMP #### [facility] ([id number]) [address] [place] [address] [id number] ABSOLUTE NEUTROPHIL 5.2 X10E9/L Normal 1.5-6.6 [facility] Comment on above: Performed By: #### C BCA, BMP #### [facility] ([id number]) [address] [place] [address] [phone] Basophils/100 WBC (Bld) 0.3 % Normal [facility] Comment on above: Performed By: #### C BCA, BMP #### [facility] ([id number]) [address] [place] [address] 52534 Eosinophils (Bld) [#/Vol] 0.2 10*3/uL Normal 0.0-0.4 [facility] Comment on above: Performed By: #### C KALEE, BMP #### [facility] ([id number]) [address] [place] [address] 49058 Eosinophils/100 WBC (Bld) 2.7 % Normal [facility] Comment on above: Performed By: #### C KALEE, BMP #### [facility] ([id number]) [address] [place] [address] 95089 Erythrocyte distribution width (RBC) [Ratio] 13.3 % Normal 11.5-15.0 [facility] Comment on above: Performed By: #### C KALEE, BMP #### [facility] ([id number]) [address] [place] [address] 40563 Hematocrit (Bld) [Volume fraction] 35.9 % Normal 35-47 [facility] Comment on above: Performed By: #### C KALEE, BMP #### [facility] ([id number]) [address] [place] [address] [phone] Hemoglobin (Bld) [Mass/Vol] 12.6 g/dL Normal 11.7-15.5 [facility] Comment on above: Performed By: #### C BCA, BMP #### [facility] ([id number]) [address] [place] [address] 76260 Lymphocytes (Bld) [#/Vol] 1.1 10*3/uL Normal 1.0-3.5 [facility] Comment on above: Performed By: #### C KALEE, BMP #### [facility] ([id number]) [address] [place] [address] 61073 Lymphocytes/100 WBC (Bld) 15.8 % Normal [facility] Comment on above: Performed By: #### C KALEE, BMP #### [facility] ([id number]) [address] [place] [address] 85488 MCH (RBC) [Entitic mass] 32.0 pg Normal 27-34 [facility] Comment on above: Performed By: #### C KALEE, BMP #### [facility] ([id number]) [address] [place] [address] 06766 MCHC (RBC) [Mass/Vol] 35.1 g/dL Normal 32-36 [facility] Comment on above: Performed By: #### C KALEE, BMP #### [facility] ([id number]) [address] [place] [address] 73086 MCV (RBC) [Entitic vol] 91 fL Normal 80-100 [facility] Comment on above: Performed By: #### C KALEE, BMP #### [facility] ([id number]) [address] [place] [address] 67504 Monocytes (Bld) [#/Vol] 0.5 10*3/uL Normal 0-0.9 [facility] Comment on above: Performed By: #### C BCA, BMP #### [facility] ([id number]) [address] [place] [address] 97036 Monocytes/100 WBC (Bld) 6.6 % Normal [facility] Comment on above: Performed By: #### C KALEE, BMP #### [facility] ([id number]) [address] [place] [address] 64125 Neutrophils/100 WBC (Bld) 74.6 % Normal [facility] Comment on above: Performed By: #### C KALEE, BMP #### [facility] ([id number]) [address] [place] [address] 99219 Platelet mean volume (Bld) [Entitic vol] 6.3 fL Low 7-12 [facility] Comment on above: Performed By: #### C KALEE, BMP #### [facility] ([id number]) [address] [place] [address] 66827 Platelets (Bld) [#/Vol] 358 10*3/uL Normal 150-450 [facility] Comment on above: Performed By: #### C KALEE, BMP #### [facility] ([id number]) [address] [place] [address] 62140 RBC COUNT 3.95 X10E12/L Normal 3.80-5.20 [facility] Comment on above: Performed By: #### C KALEE, BMP #### [facility] ([id number]) [address] [place] [address] 35052 WBC (Bld) [#/Vol] 7.0 10*3/uL Normal 4.0-11.0 [facility] Comment on above: Performed By: #### David GRANDA, BMP #### [facility] ([id number]) [address] [place] [address] 86076 Measles (Rubeola) Imon 11-09 Measles (Rubeola) Im 19.03 Normal >1.09 [facility] Comment on above: Result Comment: Interpretation: IMMUNE Reference Range: <0.91 Not Immune 0.91-1.09 Equivocal >1.09 Immune Performed By: #### R UBI, FEDE, BRIJESH, VZI #### [employer] [address] [place] [address] [employer]: Pedro Hand MD Mumps,Immun,Abon 11-09-2024 Mumps,Immun,Ab 5.15 Normal >1.09 [facility] Comment on above: Result Comment: Interpretation: IMMUNE Reference Range: <0.91 Not Immune 0.91-1.09 Equivocal >1.09 Immune Performed By: #### R UBI, FEDE, BRIJESH, VZI #### [facility] [address] [place] [address] [employer]: Pedro Hand MD VZ Immunityon 11-09-2024 VZ Immunity 3.41 Normal >1.09 [facility] Comment on above: Result Comment: Interpretation: IMMUNE Reference Range: <0.91 Not Immune 0.91-1.09 Equivocal >1.09 Immune Performed By: #### R UBI, FEDE, BRIJESH, VZI #### [address] [address] [employer]: Pedro Hand MD Rubella Ab, IgGon 11-08-2024 Rubella Ab, IgG 104.0 IU/mL Normal [facility] Comment on above: Result Comment: <10 NON REACTIVE Negative for Anti-Rubella IgG >=10 REACTIVE Positive for Anti Rubella IgG The presence of IgG antibody to Rubella virus is an indication of previous exposure either by prior infection or vaccination. Performed By: #### R UBI, FEDE, BRIJESH, VZI #### [facility] [address] [place] [id number] [employer]: Pedro Hand MD Rubella antibody, IgGon 10-16 Rubella virus IgG IA Ql 104.0 IU/mL [facility] Comment on above: <10 NON REACTIVE Negative for Anti-Rubella IgG >=10 REACTIVE Positive for Anti Rubella IgG The presence of IgG antibody to Rubella virus is an indication of previous exposure either by prior infection or vaccination. [facility] Albumin [Mass/Vol] 3.3 g/dL Low 3.4 - 5.0 g/dL [facility] ALBUMIN GLOBULIN RATIO 0.9 [facility] ALP [Catalytic activity/Vol] 86 U/L 46 - 116 U/L [facility] ALT [Catalytic activity/Vol] 22 U/L 14 - 59 U/L [facility] AST [Catalytic activity/Vol] 14 U/L Low 15 - 37 U/L [facility] Bilirubin [Mass/Vol] 0.4 mg/dL 0.2 - 1 .0 mg/dL [facility] Bilirubin.indirect [Mass/Vol] 0.1 mg/dL 0.0 - 0.2 mg/dL [facility] Globulin (S) [Mass/Vol] 3.7 g/dL [facility] Interpretation and review of laboratory results Abnormal [facility] Protein [Mass/Vol] 7 g/dL 6.4 - 8.2 g/dL [facility] MICROALB CREAT RATIO RAN DOMon 09-10-2024 CREATININE URINE RANDOM 245.77 mg/dL 20.00 - 300.00 mg/dL [facility] MICROALBUMIN URINE RANDOM <1.3 NINF - 30.0 mg/dL [facility] Urine Cultureon 09-10-2024 Bacteria identified Cx Nom (U) <9,000 colonies/ml mixed bacterial skin contaminants 2 Days PERFORMED BY: [facility] [address] [place] [address] PATHOLOGIST WELDER GAS JOLANTA BOCSH M.D. Normal [facility] Comment on above: Performed By: #### C UU #### [facility] [address] PROF CHEM 8 (BAS METB)on Anion gap [Moles/Vol] 6.5 mmol/L Normal [facility] Comment on above: Performed By: #### B MP #### [facility] [address] [place] [address] Dr. Hudson Guerrero Calcium [Mass/Vol] 9.3 mg/dL Normal 8.5-10.1 [facility] Comment on above: Performed By: #### B MP #### [facility] [address] [address] [address] Hudson Guerrero Chloride [Moles/Vol] 102 mmol/L Normal 98-107 [facility] Comment on above: Performed By: #### B MP #### [facility] [address] [address] [address] Hudson Guerrero CO2 [Moles/Vol] 32.5 mmol/L Critically high 21.0-32.0 [facility] Comment on above: Performed By: #### B MP #### [facility] [address] [address] [address] Hudson Guerrero Creatinine [Mass/Vol] 0.64 mg/dL Normal 0.55-1.02 [facility] Comment on above: Performed By: #### B MP #### [facility] [address] [place] [address] Dr. Hudson Guerrero EGFR-AF MONEGASQUE >60 Normal >=60 [facility] Comment on above: Performed By: #### B MP #### [facility] [address] [place] [address] Dr. Hudson Guerrero EGFR-NON AF MONEGASQUE >60 Normal >=60 [facility] Comment on above: Performed By: #### B MP #### [facility] [address] [address] [address] Hudson Guerrero Glucose [Mass/Vol] 100 mg/dL Normal 74-106 [facility] Comment on above: Performed By: #### B MP #### [facility] [address] [place] [address] Dr. Hudson Guerrero Potassium [Moles/Vol] 4.0 mmol/L Normal 3.5-5.1 [facility] Comment on above: Performed By: #### B MP #### [facility] [address] [address] [address] Hudson Guerrero Sodium [Moles/Vol] 137 mmol/L Normal 136-145 [facility] Comment on above: Performed By: #### B MP #### [facility] [address] [address] [address] Hudson Guerrero Urea nitrogen [Mass/Vol] 18.0 mg/dL Normal 7.0-18.0 [facility] Comment on above: Performed By: #### B MP #### [facility] [address] [place], [place] [address] Dr. Hudson Guerrero Urea nitrogen/Creatinine [Mass ratio] 28.1 mg/mg Normal [facility] Comment on above: Performed By: #### B MP #### [facility] [address] [place], [place] [address] Dr. 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 LOCATION: [facility] BREAST COMPOSITION: Heterogeneously dense,which may [...] MD on 10/29/2022 at 06:14 Normal [facility] MRI ANKLE RT WO CONon [...] MEGAN ZAMBRANO Date: 2022-10-26 17:41 Normal [facility] GLYCOHEMOGLOBIN A1Con 2022 ADA RECOMMENDATION SEE BELOW Normal [facility] Comment on above: Result Comment: ADA RECOMMENDED LIMIT 4.0 - 6.0 ADA THERAPEUTIC TARGET < 7.0 ACTION SUGGESTED > 7.0 Performed By: #### A 1C ####[facility] [address] [address]Dr. Hudson Guerrero Glucose [Mass/Vol] 117 mg/dL Normal [facility] Comment on above: Performed By: #### A 1C ####[facility] [address] [address]Dr. Hudson Guerrero HbA1c (Bld) [Mass fraction] 5.7 % Normal 4.5-6.2 [facility] Comment on above: Performed By: #### A 1C ####[facility] [address] [id number]. Hudson Guerrero CBC AUTO DIFFon 06-28-2022 BASO # 0.0 103/ul Normal 0.0-0.1 [facility] Comment on above: Performed By: #### C BC #### [facility] [address] [address] [address] Hudson Guerrero Basophils/100 WBC (Bld) 0.4 % Normal 0.2-2.0 [facility] Comment on above: Performed By: #### C BC #### [facility] [address] [address] [address] Hudson Guerrero EO # 0.2 103/ul Normal 0.0-0.7 [facility] Comment on above: Performed By: #### C BC #### [facility] [address] [place] [address] Dr. Hudson Guerrero Eosinophils/100 WBC (Bld) 2.6 % Normal 0.9-7.0 [facility] Comment on above: Performed By: #### C BC #### [facility] [address] [place] [address] Dr. Hudson Guerrero Erythrocyte distribution width (RBC) [Ratio] 12.5 % Normal 11.0-15.0 [facility] Comment on above: Performed By: #### C BC #### [facility] [address] [place] [address] Dr. Hudson Guerrero Hematocrit (Bld) [Volume fraction] 36.6 % Normal 36.0-48.0 [facility] Comment on above: Performed By: #### C BC #### [facility] [address] [place] [address] Dr. Hudson Guerrero Hemoglobin (Bld) [Mass/Vol] 12.2 g/dL Normal 12.0-16.0 [facility] Comment on above: Performed By: #### C BC #### [facility] [address] [place] [address] Dr. Hudson Guerrero IG # 0.04 10e3/ul Critically high 0.00-0.03 [facility] Comment on above: Performed By: #### C BC #### [facility] [address] [place] [address] Dr. Hudson Guerrero IG % 0.5 % Normal 0.0-0.5 [facility] Comment on above: Performed By: #### C BC #### [facility] [address] [place] [address] Dr. Hudson Guerrero LYMPH # 1.5 103/ul Normal 1.2-3.8 [facility] Comment on above: Performed By: #### C BC #### [facility] [address] [place] [address] Dr. Hudson Guerrero Lymphocytes/100 WBC (Bld) 18.8 % Critically low 20.5-60.0 [facility] Comment on above: Performed By: #### C BC #### [facility] [address] [place] [address] Dr. Hudson Guerrero MANUAL DIFF REQ NO Normal [facility] Comment on above: Performed By: #### C BC #### [facility] [address] [place] [address] Dr. Hudson Guerrero MCH (RBC) [Entitic mass] 31.8 pg Normal 26.7-34.0 [facility] Comment on above: Performed By: #### C BC #### [facility] [address] [place] [address] Dr. Hudson Guerrero MCHC (RBC) [Mass/Vol] 33.3 g/dL Normal 29.9-35.2 [facility] Comment on above: Performed By: #### C BC #### [facility] [address] [place] [address] Dr. Hudson Guerrero MCV (RBC) [Entitic vol] 95.3 fL Normal 81.0-99.0 [facility] Comment on above: Performed By: #### C BC #### [facility] [address] [place] [address] Dr. Hudson Guerrero MONO # 0.5 103/ul Normal 0.3-0.8 [facility] Comment on above: Performed By: #### C BC #### [facility] [address] [place] [address] Dr. Hudson Guerrero Monocytes/100 WBC (Bld) 6.3 % Normal 1.7-12.0 [facility] Comment on above: Performed By: #### C BC #### [facility] [address] [address] [address] Hudson Guerrero NEUT # 5.6 103/ul Normal 1.4-6.5 [facility] Comment on above: Performed By: #### C BC #### [facility] [address] [address] [address] Hudson Guerrero Neutrophils/100 WBC (Bld) 71.4 % Normal 43.0-75.0 [facility] Comment on above: Performed By: #### C BC #### [facility] [address] [address] [address] Hudson Guerrero Platelet mean volume (Bld) [Entitic vol] 8.9 fL Critically low 9.5-13.5 [facility] Comment on above: Performed By: #### C BC #### [facility] [address] [address] [address] Hudson Guerrero PLT 292 103/ul Normal 150-450 [facility] Comment on above: Performed By: #### C BC #### [facility] [address] [place] [address] Dr. Hudson Guerrero RBC 3.84 106/ul Critically low 4.20-5.40 [facility] Comment on above: Performed By: #### C BC #### [facility] [address] [place] [address] Dr. Hudson Guerrero WBC 7.8 103/ul Normal 4.0-11.0 [facility] Comment on above: Performed By: #### C BC #### [facility] [address] [address] [address] Hudson Guerrero FREE T4on 06-28-2022 Free T4 [Mass/Vol] 0.91 ng/dL Normal 0.76-1.46 [facility] Comment on above: Performed By: #### F T4 ####[facility] [address] [address]Dr. Hudson Guerrero GLYCOHEMOGLOBIN A1Con 2021 ADA RECOMMENDATION SEE BELOW Normal [facility] Comment on above: Result Comment: ADA RECOMMENDED LIMIT 4.0 - 6.0 ADA THERAPEUTIC TARGET < 7.0 ACTION SUGGESTED > 7.0 Performed By: #### A 1C #### [facility] [address] [address] [address] Hudson Guerrero Glucose [Mass/Vol] 134 mg/dL Normal [facility] Comment on above: Performed By: #### A 1C #### [facility] [address] [address] [address] Hudson Guerrero HbA1c (Bld) [Mass fraction] 6.3 % Critically high 4.5-6.2 [facility] Comment on above: Performed By: #### A 1C #### [facility] [address] [address] [address] Hudson Guerrero LIPID PROFILEon 06-28-2022 CHOL-HDL RATIO NORM SEE BELOW Normal [facility] Comment on above: Result Comment: 3.3 - 4.4 LOW RISK 4.4 - 7.1 AVERAGE RISK 7.1 - 11.0 MODERATE RISK >11.0 HIGH RISK Performed By: #### C MP, TSH, LIPID ####[facility] [address] [place] [id number] Guerrero Cholesterol [Mass/Vol] 159 mg/dL Normal <=200 [facility] Comment on above: Performed By: #### C MP, TSH, LIPID ####[facility] [address] [place] [id number]. Hudson Guerrero Cholesterol in HDL [Mass/Vol] 45 mg/dL Normal 40-60 [facility] Comment on above: Performed By: #### C MP, TSH, LIPID ####[facility] [address] [place] [id number] Guerrero Cholesterol in LDL [Mass/Vol] 82.6 mg/dL Normal [facility] Comment on above: Performed By: #### C MP, TSH, LIPID ####[facility] [address] [place] [id number] Guerrero Cholesterol.total/Ch olesterol in HDL [Mass ratio] 3.5 {ratio} Normal [facility] Comment on above: Performed By: #### C MP, TSH, LIPID ####[facility] [address] [address]Dr. Hudson Guerrero HDL NORMAL > or = 60 mg/dl - LOW CARDIOVASCULAR RISK <40 mg/dl - HIGH CARDIOVASCULAR RISK Normal [facility] Comment on above: Performed By: #### C MP, TSH, LIPID ####[facility] [address] [address]Dr. Hudson Guerrero LDL CALC NORMAL SEE BELOW Normal [facility] Comment on above: Result Comment: <100 mg/dl OPTIMAL 100 - 129 mg/dl NEAR OR ABOVE OPTIMAL 130 - 159 mg/dl BORDERLINE HIGH 160 - 189 mg/dl HIGH >190 mg/dl VERY HIGH Performed By: #### C MP, TSH, LIPID ####[facility] [address] [address]Dr. Hudson Guerrero Triglyceride [Mass/Vol] 157 mg/dL Critically high <=150 [facility] Comment on above: Performed By: #### C MP, TSH, LIPID ####[facility] [address] [address]Dr. Hudson Guerrero VLDL CALC 31.4 mg/dL Normal [facility] Comment on above: Performed By: #### C MP, TSH, LIPID ####[facility] [address] [address]Dr. Hudson Guerrero PROF 14(COMP METB)on 022 Albumin [Mass/Vol] 3.7 g/dL Normal 3.4-5.0 [facility] Comment on above: Performed By: #### C MP, TSH, LIPID ####[facility] [address] [address]Dr. Hudson Guerrero Albumin/Globulin [Mass ratio] 0.9 {ratio} Normal [facility] Comment on above: Performed By: #### C MP, TSH, LIPID ####[facility] [address] [address]Dr. Hudson Guerrero ALP [Catalytic activity/Vol] 88 U/L Normal 46-116 [facility] Comment on above: Performed By: #### C MP, TSH, LIPID ####[facility] [address] [address]Dr. Hudson Guerrero ALT [Catalytic activity/Vol] 45 U/L Normal 14-59 [facility] Comment on above: Performed By: #### C MP, TSH, LIPID ####[facility] [address] [address]Dr. Hudson Guerrero Anion gap [Moles/Vol] 14.1 mmol/L Normal [facility] Comment on above: Performed By: #### C MP, TSH, LIPID ####[facility] [address] [address]Dr. Hudson Guerrero AST [Catalytic activity/Vol] 39 U/L Critically high 15-37 [facility] Comment on above: Performed By: #### C MP, TSH, LIPID ####[facility] [address] [place], [place] [address]Dr. Hudson Guerrero Bilirubin [Mass/Vol] 0.5 mg/dL Normal 0.2-1.0 [facility] Comment on above: Performed By: #### C MP, TSH, LIPID ####[facility] [address] [place], [place] [address]Dr. Hudson Guerrero Calcium [Mass/Vol] 9.3 mg/dL Normal 8.5-10.1 [facility] Comment on above: Performed By: #### C MP, TSH, LIPID ####[facility] [address] [address]Dr. Hudson Guerrero Chloride [Moles/Vol] 106 mmol/L Normal 98-107 [facility] Comment on above: Performed By: #### C MP, TSH, LIPID ####[facility] [address] [address]Dr. Hudson Guerrero CO2 [Moles/Vol] 28.5 mmol/L Normal 21.0-32.0 [facility] Comment on above: Performed By: #### C MP, TSH, LIPID ####[facility] [address] [place] [id number]. Hudson Guerrero Creatinine [Mass/Vol] 0.55 mg/dL Normal 0.55-1.02 [facility] Comment on above: Performed By: #### C MP, TSH, LIPID ####[facility] [address] [place], [place] [address]Oa. Hudson Guerrero EGFR-AF MONEGASQUE >60 Normal >=60 [facility] Comment on above: Performed By: #### C MP, TSH, LIPID ####[facility] [address] [place] [id number]. Hudson Guerrero EGFR-NON AF MONEGASQUE >60 Normal >=60 [facility] Comment on above: Performed By: #### C MP, TSH, LIPID ####[facility] [address] [place] [id number]. Hudson Guerrero Globulin (S) [Mass/Vol] 4.0 g/dL Normal [facility] Comment on above: Performed By: #### C MP, TSH, LIPID ####[facility] [address] [place] [id number]. Hudson Guerrero Glucose [Mass/Vol] 115 mg/dL Critically high 74-106 [facility] Comment on above: Performed By: #### C MP, TSH, LIPID ####[facility] [address] [place] [id number]. Hudson Guerrero Potassium [Moles/Vol] 4.6 mmol/L Normal 3.5-5.1 [facility] Comment on above: Performed By: #### C MP, TSH, LIPID ####[facility] [address] [place] [id number]. Hudson Guerrero Protein [Mass/Vol] 7.7 g/dL Normal 6.4-8.2 [facility] Comment on above: Performed By: #### C MP, TSH, LIPID ####[facility] [address] [place] [id number]. Hudson Guerrero Sodium [Moles/Vol] 144 mmol/L Normal 136-145 [facility] Comment on above: Performed By: #### C MP, TSH, LIPID ####[facility] [address] [place] [id number]. Hudson Guerrero Urea nitrogen [Mass/Vol] 16.0 mg/dL Normal 7.0-18.0 [facility] Comment on above: Performed By: #### C MP, TSH, LIPID ####[facility] [address] [place] [id number]. Hudson Guerrero Urea nitrogen/Creatinine [Mass ratio] 29.1 mg/mg Normal [facility] Comment on above: Performed By: #### C MP, TSH, LIPID ####[facility] [address] [place] [id number]. Hudson Guerrero TSHon 06-28-2022 TSH 1.163 uIU/mL Normal 0.358-3.740 [facility] Comment on above: Performed By: #### C MP, TSH, LIPID ####[facility] [address] [place] [address]Dr. Hudson Guerrero UA RANDOM W/MICROSCOPICon BACTERIA SMALL Abnormal NONE SEEN [facility] Comment on above: Performed By: #### U AMIC #### [facility] [address] [place] [address] Dr. Hudson Guerrero Bilirubin Ql (U) Negative Normal NEGATIVE [facility] Comment on above: Performed By: #### U AMIC #### [facility] [address] [place] [address] Dr. Hudson Guerrero CAST NONE SEEN Normal NONE SEEN [facility] Comment on above: Performed By: #### U AMIC #### [facility] [address] [place] [address] Dr. Hudson Guerrero Clarity (U) CLEAR Normal CLEAR [facility] Comment on above: Performed By: #### U AMIC #### [facility] [address] [place] [address] Dr. Hudson Guerrero Color (U) LT. YELLOW Normal YELLOW [facility] Comment on above: Performed By: #### U AMIC #### [facility] [address] [place] [address] Dr. Hudson Guerrero Crystals LM Nom (Urine sed) NONE SEEN Normal NONE SEEN [facility] Comment on above: Performed By: #### U AMIC #### [facility] [address] [address] [address] Hudson Guerrero Epithelial cells LM Ql (Urine sed) FEW Abnormal NONE SEEN /RARE [facility] Comment on above: Performed By: #### U AMIC #### [facility] [address] [address] [address] Hudson Guerrero Glucose Ql (U) Negative Normal NEGATIVE [facility] Comment on above: Performed By: #### U AMIC #### [facility] [address] [address] [address] Hudson Guerrero Hemoglobin Ql (U) Negative Normal NEGATIVE The [facility] Comment on above: Performed By: #### U AMIC #### [facility] [address] [place] [address] Dr. Hudson Guerrero Ketones Ql (U) Negative Normal NEGATIVE [facility] Comment on above: Performed By: #### U AMIC #### [facility] [address] [address] [address] Hudson Guerrero LEUKOCYTES SMALL Abnormal NEGATIVE [facility] Comment on above: Performed By: #### U AMIC #### [facility] [address] [place] [address] Dr. Hudson Guerrero MUCOUS NONE SEEN Normal NONE SEEN [facility] Comment on above: Performed By: #### U AMIC #### [facility] [address] [address] [address] Hudson Guerrero Nitrite Ql (U) Negative Normal NEGATIVE [facility] Comment on above: Performed By: #### U AMIC #### [facility] [address] [place] [address] Dr. Hudson Guerrero pH (U) 6.0 [pH] Normal 5-9 [facility] Comment on above: Performed By: #### U AMIC #### [facility] [address] [address] [address] Hudson Guerrero RBC NONE SEEN Abnormal 0-2 [facility] Comment on above: Performed By: #### U AMIC #### [facility] [address] [address] [address] Hudson Guerrero SPEC GRAVITY 1.025 Normal 1.005-<=1.025 The [facility] Comment on above: Performed By: #### U AMIC #### [facility] [address] [place] [address] Dr. Hudson Guerrero UA PROTEIN Negative Normal NEGATIVE/ TRACE [facility] Comment on above: Performed By: #### U AMIC #### [facility] [address] [address] [address] Hudson Guerrero Urobilinogen Qn (U) 0.2 {Andi'U}/dL Normal 0.2 - 1. 0 [facility] Comment on above: Performed By: #### U AMIC #### [facility] [address] [place] [address] Dr. Hudson Guerrero WBC 2-5 Abnormal NONE SEEN [facility] Comment on above: Performed By: #### U AMIC #### [facility] [address] [place] [address] Dr. Hudson Guerrero TSHon 01-24-2022 TSH 2.622 uIU/mL Normal 0.358-3.740 The [facility] Comment on above: Performed By: #### T SH #### [facility] [address] [place] [address] Dr. Hudson Guerrero TSH RANGE SEE BELOW Normal [facility] Comment on above: Result Comment: <0.3 4 UIU/ml HYPERTHYROID 0.34-5.60 UIU/ml EUTHYROID >5.60 UIU/ml HYPOTHYROID Performed By: #### T SH #### [facility] [address] [place] [address] Dr. Hudson Guerrero Vital Signs Date Time Vital Sign Value Performing Clinician Raoul lawson 03-06-2025 15:49-0400 Body mass index (BMI) [Ratio] 42.66 kg/m2 Bijal Antunez [employer]UAL [employer] Work Phone: [facility] 06-23-2025 15:49-0400 Body temperature 98.49 [degF] Bijal Aichholz MANUAL WINDER Work Phone: [facility] 03-06-2025 15:49-0400 Body weight 123.56 kg Bijal Aichholz MANUAL W[employer]ER Work Phone: [facility] 03-06-2025 15:49-0400 Diastolic blood pressure 82 mm[Hg] Bijal Aichholz MANUAL WINDER Work Phone: [facility] 03-06-2025 15:49-0400 Heart rate 75 /min Bijal Aichholz MANUAL W[employer]ER Work Phone: [facility] 03-06-2025 15:49-0400 Respiratory rate 20 /min Bijal Aichholz MANUAL W[employer]ER Work Phone: [facility] 03-06-2025 15:49-0400 SaO2% (BldA) [Mass fraction] 96 % Bijal Aichholz MANUAL W[employer]ER Work Phone: [facility] 03-06-2025 15:49-0400 Systolic blood pressure 138 mm[Hg] Bijal Aichholz MANUAL WINDER Work Phone: [facility] 02-15-2025 08:43-0400 Body mass index (BMI) [Ratio] 42.48 kg/m2 Bijal Aichholz MANUAL W[employer]ER Work Phone: [facility] 02-15-2025 08:43-0400 Body temperature 97.59 [degF] Bijal Aichholz MANUAL W[employer]ER Work Phone: [facility] 02-15-2025 08:43-0400 Body weight 123.02 kg Bijal Aichholz MANUAL W[employer]ER Work Phone: [facility] 02-15-2025 08:43-0400 Diastolic blood pressure 82 mm[Hg] Bijal Aichholz MANUAL W[employer]ER Work Phone: [facility] 02-15-2025 08:43-0400 Heart rate 86 /min Bijal Aichholz MANUAL W[employer]ER Work Phone: [facility] 02-15-2025 08:43-0400 Respiratory rate 18 /min Bijalandrea Abdiholz MANUAL WINDER Work Phone: [facility] 02-15-2025 08:43-0400 SaO2% (BldA) [Mass fraction] 95 % Bijal Trinidadholz MANUAL WINDER Work Phone: [facility] 02-15-2025 08:43-0400 Systolic blood pressure 120 mm[Hg] Bijal Marlonhholz MANUAL WINDER Work Phone: [facility] 11-15-2024 15:01-0500 Body height 170.2 cm Bijal Aichholz MANUAL W[employer]ER Work Phone: [facility] 11-15-2024 15:01-0500 Body mass index (BMI) [Ratio] 44.04 kg/m2 Bijal Marlonhholz MANUAL WINDER Work Phone: [facility] 11-15-2024 15:01-0500 Body temperature 98.4 [degF] Bijal Marlonhholz MANUAL WINDER Work Phone: [facility] 11-15-2024 15:01-0500 Body weight 127.55 kg Bijal Marlonhholz MANUAL WINDER Work Phone: [facility] 11-15-2024 15:01-0500 Diastolic blood pressure 84 mm[Hg] Bijal Marlonhholz MANUAL WINDER Work Phone: [facility] 11-15-2024 15:01-0500 Heart rate 86 /min Bijal Marlonhholz MANUAL W[employer]ER Work Phone: [facility] 11-15-2024 15:01-0500 Respiratory rate 18 /min Bijal Aichholz MANUAL W[employer]ER Work Phone: [facility] 11-15-2024 15:01-0500 SaO2% (BldA) [Mass fraction] 96 % Bijal Marlonhholz MANUAL W[employer]ER Work Phone: [facility] 11-15-2024 15:01-0500 Systolic blood pressure 120 mm[Hg] Bijal Aichholz MANUAL W[employer]ER Work Phone: [facility] 08-22-2024 10:07-0500 Body height 170.2 cm Humberto Barakat DO Work Phone: [facility] 08-22-2024 10:07-0500 Body mass index (BMI) [Ratio] 43.85 kg/m2 Humberto Barakat DO Work Phone: [facility] 08-22-2024 10:07-0500 Body weight 127.01 kg Humberto Barakat DO Work Phone: [facility] 08-22-2024 10:07-0500 Diastolic blood pressure 78 mm[Hg] Humberto Baraakt DO Work Phone: [facility] 08-22-2024 10:07-0500 Systolic blood pressure 134 mm[Hg] Humberto Barakat DO Work Phone: [facility] 08-17-2024 15:46-0500 Body height 170.2 cm Bijal Aichholz MANUAL W[employer]ER Work Phone: [facility] 08-17-2024 15:46-0500 Body mass index (BMI) [Ratio] 43.89 kg/m2 Bijal Aichholz [employer]UAL W[employer]ER Work Phone: [facility] 08-17-2024 15:46-0500 Body temperature 98.1 [degF] Bijal Aichholz MANUAL WINDER Work Phone: [facility] 08-17-2024 15:46-0500 Body weight 127.1 kg Bijal Aichholz MANUAL W[employer]ER Work Phone: [facility] 08-17-2024 15:46-0500 Diastolic blood pressure 86 mm[Hg] Bijal Aichholz MANUAL W[employer]ER Work Phone: [facility] 08-17-2024 15:46-0500 Heart rate 97 /min Bijal Aichholz MANUAL W[employer]ER Work Phone: [facility] 08-17-2024 15:46-0500 Respiratory rate 18 /min Bijal Aichholz MANUAL W[employer]ER Work Phone: [facility] 08-17-2024 15:46-0500 SaO2% (BldA) [Mass fraction] 98 % Bijal Marlonhholz MANUAL W[employer]ER Work Phone: [facility] 08-17-2024 15:46-0500 Systolic blood pressure 132 mm[Hg] Bijal Aichholz MANUAL W[employer]ER Work Phone: [facility] 05-25-2024 16:07-0400 Body height 170.2 cm Bijal Aichholz MANUAL WINDER Work Phone: [facility] 05-25-2024 16:07-0400 Body mass index (BMI) [Ratio] 45.11 kg/m2 Bijal Aichholz MAN[employer] W[employer]ER Work Phone: [facility] 05-25-2024 16:07-0400 Body temperature 97.81 [degF] Bijal Aichholz MANUAL W[employer]ER Work Phone: [facility] 05-25-2024 16:07-0400 Body weight 130.64 kg Bijal Aichholz MANUAL W[employer]ER Work Phone: [facility] 05-25-2024 16:07-0400 Diastolic blood pressure 80 mm[Hg] Bijal Aichholz MANUAL W[employer]ER Work Phone: [facility] 05-25-2024 16:07-0400 Heart rate 79 /min Bijal Aichholz MAN[employer] W[employer]ER Work Phone: [facility] 05-25-2024 16:07-0400 Respiratory rate 20 /min Bijal Aichholz MANUAL W[employer]ER Work Phone: [facility] 05-25-2024 16:07-0400 SaO2% (BldA) [Mass fraction] 97 % Ibjal Aichholz MANUAL WINDER Work Phone: [facility] 05-25-2024 16:07-0400 Systolic blood pressure 122 mm[Hg] Bijal Aichholz MANUAL WINDER Work Phone: [facility] Healthcare Encounters Encounter Date Encounter Type Care Provider Facility Start: 03-06-2025 End: 03-06-2025 Office outpatient visit 25 minutes Bijal Marlonhholz MANUAL W[employer]ER Work Phone: [facility] Comment on above: Postprandial RUQ bethany n (Primary Dx); Abnormal gallbladder ultrasound; Mass of gallbladder; Class 3 severe obesity due to excess calories without serious comorbidity with body mass index (BMI) of 40.0 to 44.9 in adult ([facility]) Start: 03-06-2025 End: 03-06-2025 ambulatory BIJAL ANTUNEZ Not Available Start: 03-03-2025 End: 03-03-2025 Orders Only Bijal Antunez [employer] W[employer]ER Work Phone: [facility] Comment on above: Mass of gallbladder (Primary Dx) Postprandial RUQ bethany n (Primary Dx); Mass of gallbladder Start: 03-02-2025 End: 03-02-2025 Orders Only Bijal Antunez MAN[employer] W[employer]ER Work Phone: [facility] Comment on above: Postprandial RUQ bethany n (Primary Dx); Abnormal gallbladder ultrasound Start: 02-23-2025 End: 02-23-2025 Bamboo flowsheet [employer] [facility] Work Phone: [facility] Start: 02-23-2025 End: 02-23-2025 Bamboo flowsheet Yanira [employer] [facility] Work Phone: [facility] Start: 02-23-2025 End: 02-23-2025 Office outpatient new 30 minutes Yanira [employer] [facility] Work Phone: [facility] Comment on above: Melanocytic nevus of upper extremity, unspecified laterality (Primary Dx); Melanocytic nevus of face, other location; Melanocytic nevus of trunk; Lentigo simplex; Seborrheic keratosis; Acrochordon Start: 02-23-2025 End: 02-23-2025 [facility]ulatory [facility] Start: 02-15-2025 End: 02-15-2025 Bamboo flowsheet Bijal Antunez MANUAL WINDER Work Phone: [facility] Start: 02-15-2025 End: 02-15-2025 Bamboo flowsheet Bijal Antunez MANUAL W[employer]ER Work Phone: [facility] Start: 02-15-2025 End: 02-15-2025 ambulatory BIJAL ANTUNEZ Not Available Start: 02-15-2025 End: 02-15-2025 Office outpatient visit 25 minutes Bijal Antunez [employer] W[employer]ER Work Phone: [facility] Comment on above: Primary hypertension (CMS/HCC) (Primary Dx); Postprandial RUQ pain; Bilateral lower extremity edema; Class 3 severe obesity due to excess calories without serious comorbidity with body mass index (BMI) of 40.0 to 44.9 in adult; Mixed hyperlipidemia (CMS/HCC); Pure hyperglyceridemia (CMS/HCC); Essential (primary) hypertension (CMS/HCC); Acquired hypothyroidism (CMS/HCC); Other chronic pain; Vitamin D deficiency; Thyroid nodule (CMS/HCC); Neoplasm of uncertain behavior Start: 02-08-2025 End: 02-08-2025 Refill Bijal Salasz [employer]UAL W[employer]ER Work Phone: [facility] Comment on above: Rash and other nonsp ecific skin eruption Start: 02-05-2025 End: 02-06-2025 Refill Bijal Salasz [employer] W[employer]ER Work Phone: [facility] Comment on above: Other chronic pain Start: 01-12-2025 End: 01-12-2025 Clinisync Result Encounter Humberto Barakat DO Work Phone: [facility] Unsolicited Start: 01-12-2025 End: 01-12-2025 Clinisync Result Encounter Humberto Barakat DO Work Phone: [facility] External Department Unsolicited Start: 12-30-2024 End: 12-30-2024 Refill Bijal Harmony [employer]ER Work Phone: [facility] Comment on above: Primary hypertension (CMS/HCC) (Primary Dx) Start: 12-29-2024 End: 12-29-2024 Emergency department patient visit BIJAL ANTUNEZ [facility] Start: 11-15-2024 End: 11-15-2024 Office outpatient visit 25 minutes Bijal Antunez [employer]ER Work Phone: [facility] Comment on above: Primary hypertension (CMS/HCC) (Primary Dx); Elevated liver function tests; Bilateral lower extremity edema; Acquired hypothyroidism (CMS/HCC); Class 3 severe obesity due to excess calories without serious comorbidity with body mass index (BMI) of 40.0 to 44.9 in adult (CMS/HCC); Postprandial RUQ pain Start: 11-15-2024 End: 11-15-2024 ambulatory BIJAL ANTUNEZ Not Available Start: 11-15-2024 End: 11-15-2024 Bamboo flowsheet Bijal Antunez MANUAL W[employer]ER Work Phone: [facility] Start: 11-15-2024 End: 11-15-2024 Bamboo flowsheet Bijal Antunez MANUAL W[employer]ER Work Phone: [facility] Start: 11-08-2024 End: 11-08-2024 ambulatory SHERIF COLE [facility] Start: 11-08-2024 End: 11-08-2024 Subsequent hospital visit by physician [facility] Start: 09-26-2024 End: 09-26-2024 Clinisync Result Encounter Bijal Antunez [employer]UAL W[employer]ER Work Phone: [facility] Unsolicited Start: 09-26-2024 End: 09-26-2024 Clinisync Result Encounter Bijal Antunez MANUAL WINDER Work Phone: [facility] Unsolicited Start: 09-19-2024 End: 09-19-2024 Refill Bijal Antunez [employer] W[employer]ER Work Phone: [facility] Comment on above: UTI symptoms (Primar y Dx) Start: 09-14-2024 End: 09-14-2024 Orders Only Bijal Antunez [employer] W[employer]ER Work Phone: [facility] Comment on above: Elevated liver funct ion tests (Primary Dx) Start: 09-10-2024 End: 09-10-2024 Clinisync Result Encounter Bijal Antunez MANUAL WINDER Work Phone: [facility] External Department Unsolicited Start: 09-10-2024 End: 09-10-2024 Clinisync Result Encounter Bijal Abdiluan [employer]UAL WINDER Work Phone: [facility] External Department Unsolicited Start: 09-10-2024 End: 09-10-2024 ambulatory NON STAFF Facility:[facility] Start: 09-08-2024 End: 09-08-2024 Refill Bijal Masonawilda [employer]UAL W[employer]ER Work Phone: [facility] Comment on above: Class 3 severe obesi ty due to excess calories without serious comorbidity with body mass index (BMI) of 40.0 to 44.9 in adult (CMS/HCC) (Primary Dx) Start: 08-22-2024 End: 08-22-2024 Patient encounter status Humberto Barakat DO Work Phone: [facility] Start: 08-22-2024 End: 08-22-2024 Periodic preventive med est patient 40-64yrs Humberto Barakat DO Work Phone: [facility] Comment on above: Encounter for gyneco logical examination without abnormal finding; Screening for malignant neoplasm of cervix; Breast cancer screening by mammogram; Hormone replacement therapy Start: 08-22-2024 End: 08-22-2024 ambulatory HUMBERTO BARAKAT Not Available Start: 08-17-2024 End: 08-17-2024 ambulatory BIJAL HARMONY Not Available Start: 08-17-2024 End: 08-17-2024 Periodic preventive med est patient 40-64yrs Bijal Harmony [employer] W[employer]ER Work Phone: [facility] Comment on above: Encounter for adult wellness [...] 08-17-2024 End: 08-17-2024 Bamboo flowsheet Bijal Antunez MAN[employer] W[employer]ER Work Phone: [facility] Start: 08-17-2024 End: 08-17-2024 Bamboo flowsheet Bijal Antunez MANUAL W[employer]ER Work Phone: [facility] Start: 08-17-2024 End: 08-17-2024 Patient encounter status Bijal Antunez MANUAL W[employer]ER Work Phone: [facility] Start: 08-10-2024 End: 08-10-2024 Refill Bijal Antunez NP Work Phone: [facility] Comment on above: Class 3 severe obesi ty due to excess calories without serious comorbidity with body mass index (BMI) of 45.0 to 49.9 in adult ([facility]) (Primary Dx) Start: 08-07-2024 End: 08-08-2024 Refill Charan Quinn MD Work Phone: [facility] Comment on above: Other chronic pain ( Primary Dx) Start: 05-25-2024 End: 05-25-2024 Office outpatient visit 25 minutes Bijal Antunez NP Work Phone: [facility] Comment on above: Plantar fasciitis, r ight (Primary Dx); Primary hypertension ([facility]); Class 3 severe obesity due to excess calories without serious comorbidity with body mass index (BMI) of 45.0 to 49.9 in adult ([facility]); Bilateral lower extremity edema Start: 05-25-2024 End: 05-25-2024 ambulatory BIJAL ANTUNEZ Not Available Start: 05-25-2024 End: 05-25-2024 Bamboo flowsheet Bijal Antunez [employer] W[employer]ER Work Phone: [facility] Start: 05-25-2024 End: 05-25-2024 Bamboo flowsheet Bijal Antunez MANUAL W[employer]ER Work Phone: [facility] Start: 03-22-2024 End: 03-22-2024 ambulatory BIJAL ANTUNEZ Not Available Start: 03-15-2024 End: 03-15-2024 ambulatory DESTINY YANG Not Available Start: 01-17-2023 End: 01-18-2023 ambulatory GLENNY ANTUNEZ Facility:[facility] Start: 10-28-2022 End: 10-29-2022 ambulatory GLENNY BIJAL HARMONY Facility:[facility] Start: 10-24-2022 End: 10-25-2022 ambulatory SENIOR CLINICAL DATA MANAGER BIJAL HARMONY Facility:[facility] Start: 10-14-2022 End: 10-15-2022 ambulatory GLENNY BIJAL HARMONY Facility:[facility] Start: 10-09-2022 End: 10-10-2022 ambulatory SENIOR CLINICAL DATA MANAGER BIJAL HARMONY Facility:[facility] Start: 08-13-2022 End: 08-14-2022 ambulatory GLENNY BIJAL HARMONY Facility:[facility] Start: 07-04-2022 ambulatory FAROOQ KO . Facili ty:[facility] Start: 06-28-2022 End: 06-29-2022 ambulatory GLENNY BIJAL HARMONY Facility:[facility] Start: 06-03-2022 End: 06-04-2022 ambulatory GLENNY BIJAL HARMONY Facility:[facility] Start: 04-04-2022 End: 04-05-2022 ambulatory FAROOQ KO . Facility:[facility] Start: 03-25-2022 End: 03-26-2022 ambulatory GLENNY BIJAL HARMONY Facility:[facility] Start: 01-28-2022 End: 01-29-2022 ambulatory GLENNY BIJAL HARMONY Facility:[facility] Start: 01-24-2022 End: 01-25-2022 ambulatory GLENNY BIJAL HARMONY Facility:[facility] Procedures Date Procedure Procedure Detail Performing Clinician Start: 01-12-2025 MM TOMOSYNTHESIS SCR EENING BI Humberto Barakat DO Work Phone: Start: 01-12-2025 Mammography Humberto rincon DO Work Phone: Start: 11-08-2024 Antibody rubella Tavares Cole COMMERCIAL INTELLIGENCE MANAGER - [facility] Work Phone: Start: 09-26-2024 [facility] LIVER PANEL Bijal A ichholz MANUAL WINDER Work Phone: Start: 09-10-2024 [facility] MICROALB CREAT R ATIO RANDOM Bijal Marlonmalgorzataluan MANUAL WINDER Work Phone: Start: 12-02-2023 Mammography Bijal haddadnoy MANUAL WINDER Work Phone: Start: 01-12-2019 Colonoscopy Bijal haddadnoy MANUAL WINDER Work Phone: Plan of Treatment Date Care Activity Detail Author Start: 01-12-2029 Screening for malign ant neoplasm of colon [facility] Start: 02-22-2026 End: 02-22-2026 Patient encounter procedure 02/22/2026 11:10 AM EDT Office Visit [facility] [address] [place] [phone] Yanira Taylor PA [address] [place] [phone] [facility] Start: 01-12-2026 Screening for malign ant neoplasm of breast Mammogram [facility] Start: 05-18-2025 End: 05-18-2025 Patient encounter procedure 05/18/2025 8:40 AM EDT Office Visit [facility] [address] [place] [phone] Bijal Antunez, MANUAL WINDER [address] [place] [phone] [facility] Start: 03-06-2025 End: 03-06-2025 Patient encounter procedure 03/06/2025 3:40 PM EDT Office Visit [facility] [address] [place] [address] Bijal Antunez, MANUAL WINDER [address] [place] [address] [facility] Start: 03-03-2025 End: 03-03-2026 MR Abdomen WO and W contrast IV MR abdomen w and wo contrast Imaging Routine Mass of gallbladder Expected: 03/03/2025 (Approximate), Expires: 03/03/2026 [facility] Work Phone: Comment on above: Expected: 03/03/2025 (Approximate), Expires: 03/03/2026 Start: 02-23-2025 End: 02-23-2025 Patient encounter procedure 02/23/2025 11:10 AM EDT Office Visit [facility] [address] [place] [address] Yainra Taylor PA [address] [place] [address] Neoplasm of uncertain behavior [facility] Comment on above: Neoplasm of uncertai n behavior Start: 02-15-2025 End: 02-15-2026 25-hydroxyvitamin D3 [Mass/volume] in Serum or Plasma Vitamin D 25 hydroxy Lab Routine Vitamin D deficiency Expected: 02/15/2025 (Approximate), Expires: 02/15/2026 [facility] Comment on above: Expected: 02/15/2025 (Approximate), Expires: 02/15/2026 Start: 02-15-2025 End: 02-15-2026 Comprehensive metabolic 2000 panel - Serum or Plasma Comprehensive metabolic panel Lab Routine Mixed hyperlipidemia (CMS/HCC) Expected: 02/15/2025 (Approximate), Expires: 02/15/2026 [facility] Comment on above: Expected: 02/15/2025 (Approximate), Expires: 02/15/2026 Start: 02-15-2025 End: 02-15-2026 Lipid 1996 panel - Serum or Plasma Lipid panel Lab Routine Mixed hyperlipidemia (CMS/HCC) Expected: 02/15/2025 (Approximate), Expires: 02/15/2026 [facility] Work Phone: Comment on above: Expected: 02/15/2025 (Approximate), Expires: 02/15/2026 Start: 02-15-2025 End: 02-15-2026 Thyrotropin [Units/volume] in Serum or Plasma TSH Lab Routine Acquired hypothyroidism (CMS/HCC) Expected: 02/15/2025 (Approximate), Expires: 02/15/2026 [facility] Comment on above: Expected: 02/15/2025 (Approximate), Expires: 02/15/2026 Start: 02-15-2025 End: 02-15-2026 Thyroxine (T4) free [Mass/volume] in Serum or Plasma T4, free Lab Routine Acquired hypothyroidism (CMS/HCC) Expected: 02/15/2025 (Approximate), Expires: 02/15/2026 [facility] Comment on above: Expected: 02/15/2025 (Approximate), Expires: 02/15/2026 Start: 02-15-2025 End: 02-15-2026 US Thyroid gland US thyroid Imaging Routine Thyroid nodule (CMS/HCC) Expected: 02/15/2025 (Approximate), Expires: 02/15/2026 [facility] Comment on above: Expected: 02/15/2025 (Approximate), Expires: 02/15/2026 Start: 02-15-2025 End: 02-15-2025 Patient encounter procedure 02/15/2025 8:40 AM EDT Office Visit [facility] [address] [place] [address] Bijal Antunez, SIENNA [address] [place] [phone] [facility] Start: 12-01-2024 Screening for malign ant neoplasm of breast Mammogram [facility] Start: 11-16-2024 End: 11-16-2024 Patient encounter procedure 11/16/2024 3:40 PM EST Office Visit [facility] [address] [place] [address] Bijal Antunez, SIENNA [address] [place] [address] [facility] Start: 11-15-2024 End: 11-15-2024 Patient encounter procedure 11/15/2024 3:00 PM EST Office Visit [facility] [address] [place] [address] Bijal Antunez NP [address] [place] [address] Primary hypertension (CMS/HCC) (Primary Dx); Elevated liver function tests; Bilateral lower extremity edema; Acquired hypothyroidism (CMS/HCC); Class 3 severe obesity due to excess calories without serious comorbidity with body mass index (BMI) of 40.0 to 44.9 in adult (CMS/HCC) [facility] Comment on above: Primary hypertension (CMS/HCC) (Primary Dx); Elevated liver function tests; Bilateral lower extremity edema; Acquired hypothyroidism (CMS/HCC); Class 3 severe obesity due to excess calories without serious comorbidity with body mass index (BMI) of 40.0 to 44.9 in adult (CMS/HCC) Start: 11-15-2024 End: 11-15-2025 US Gallbladder US gallbladder Imaging Routine Postprandial RUQ pain Expected: 11/15/2024, Expires: 11/15/[address] [facility] Work Phone: Comment on above: Expected: 11/15/2024 , Expires: 11/15/2025 Start: 09-28-2024 End: 09-14-2025 Hepatic function 2000 panel - Serum or Plasma Hepatic function panel Lab Routine Elevated liver function tests Expected: 09/28/2024 (Approximate), Expires: 09/14/[address] [facility] Work Phone: Comment on above: Expected: 09/28/2024 (Approximate), Expires: 09/14/2025 Start: 08-22-2024 End: 10-23-2025 DBT Breast - bilateral screening Bilateral screening mammogram with tomosynthesis Imaging Routine Breast cancer screening by mammogram Expected: 08/22/2024, Expires: 10/23/2025 [facility] Comment on above: Expected: 08/22/2024 , Expires: 10/23/2025 Start: 08-22-2024 End: 08-22-2024 Patient encounter procedure 08/22/2024 10:00 AM EST Office Visit [facility] [address] [place] [id number] Humberto Barakat DO [address] [place] [address] [facility] Start: 08-17-2024 End: 08-17-2024 Patient encounter procedure 08/17/2024 3:40 PM EST Office Visit [facility] [address] [place] [address] Bijal Antunez NP [address] [place] [address] [facility] Start: 08-17-2024 End: 08-17-2025 CBC W Auto Differential panel - Blood CBC and differential Lab Routine Encounter For Adult Wellness Visit Expected: 08/17/2024 (Approximate), Expires: 08/17/2025 [facility] Work Phone: Comment on above: Expected: 08/17/2024 (Approximate), Expires: 08/17/2025 Start: 08-17-2024 End: 08-17-2025 Comprehensive metabolic 2000 panel - Serum or Plasma Comprehensive metabolic panel Lab Routine Encounter for adult wellness visit Expected: 08/17/2024 (Approximate), Expires: 08/17/2025 [facility] Comment on above: Expected: 08/17/2024 (Approximate), Expires: 08/17/2025 Start: 08-17-2024 End: 08-17-2025 Lipid 1996 panel - Serum or Plasma Lipid panel Lab Routine Encounter for adult wellness visit Expected: 08/17/2024 (Approximate), Expires: 08/17/2025 [facility] Comment on above: Expected: 08/17/2024 (Approximate), Expires: 08/17/2025 Start: 08-17-2024 End: 08-17-2025 Microalbumin/Creatinine panel in random Urine Microalbumin / creatinine, urine ratio Lab Routine Encounter for adult wellness visit Expected: 08/17/2024 (Approximate), Expires: 08/17/2025 [facility] Comment on above: Expected: 08/17/2024 (Approximate), Expires: 08/17/2025 Start: 08-17-2024 End: 08-17-2025 Thyrotropin [Units/volume] in Serum or Plasma TSH Lab Routine Encounter for adult wellness visit Expected: 08/17/2024 (Approximate), Expires: 08/17/2025 [facility] Comment on above: Expected: 08/17/2024 (Approximate), Expires: 08/17/2025 Start: 08-17-2024 End: 08-17-2025 Thyroxine (T4) free [Mass/volume] in Serum or Plasma T4, free Lab Routine Encounter for adult wellness visit Expected: 08/17/2024 (Approximate), Expires: 08/17/2025 [facility] Comment on above: Expected: 08/17/2024 (Approximate), Expires: 08/17/2025 Start: 08-17-2024 End: 08-17-2025 Urinalysis complete panel - Urine Urinalysis with reflex microscopic (clean catch) Lab Routine Encounter for adult wellness visit Expected: 08/17/2024 (Approximate), Expires: 08/17/2025 [facility] Comment on above: Expected: 08/17/2024 (Approximate), Expires: 08/17/2025 Start: 05-25-2024 End: 05-25-2024 Patient encounter procedure 05/25/2024 3:40 PM EDT Office Visit [facility] [address] [place] [address] Bijal Antunez NP [address] [place] [address] Arrived [facility] Comment on above: Arrived Start: 1965 Screening for malign ant neoplasm of colon [facility] IGP, APT HPV,RFX 16/18,45 IGP, APT HPV,RFX 16/18,45 Lab Routine Screening for malignant neoplasm of cervix Ordered: 08/22/2024 [facility] Work Phone: Comment on above: Ordered: 08/22/2024 End: 11-08-2024 Mumps Antibody, IgG [place] [address] Comment on above: Once for 1 Occurrenc es starting 11/08/2024 until 11/08/2024 End: 11-08-2024 Rubeola Antibody, IgG [address] Work Phone: Comment on above: Once for 1 Occurrenc es starting 11/08/2024 until 11/08/2024 End: 11-08-2024 Varicella Zoster Antibody, IgG [place] [address] Comment on above: Once for 1 Occurrenc es starting 11/08/2024 until 11/08/2024 Payers Date Payer Category Payer Unknown [id number] 2024 Self-pay 2018 [employer] Blue [employer] [id number] 2018 Unknown BCBS BCBS xxxxxx [id number] 2018-Present [phone] [address] [place] [address] [id number] 1965 Unknown [id number] .[id number] 1965 Unknown [id number] .840.1.479061.3.579.2.5 1965 Unknown [id number] 2..840.1.107133.3.579.2.5 93 1965 Unknown [id number] 2.16.840.1.418845.3.579.2.5 1965 Unknown [id number] 2.16.840.1.611317.3.579.2.5 1965 Unknown [id number] .16840.1.553791.3.579.2.5 93 1965 Unknown [id number] 2.16.840.1.190219.3.579.2.5 93 1965 Unknown [id number] 2.16.840.1.402634.3.579.2.5 93 1965 Unknown [id number] 2.16.840.1.025737.3.579.2.5 93 1965 Unknown [id number] 2.16.840.1.012949.3.579.2.5 93 1965 Unknown [id number] 2.16.840.1.246138.3.579.2.5 93 1965 Unknown [id number] 2.16840.1.723298.3.579.2.5 93 1965 Unknown [id number] 2.840.1.601241.3.579.2.5 93 1965 Unknown [id number] 2.16840.1.794883.3.579.2.1 73 1965 Unknown [id number] 2.16840.1.929951.3.579.2.1 286 1965 Unknown [id number] 2.840.1.522726.3.579.2.1 259 1965 Unknown [id number] 2.16840.1.211622.3.579.2.1 259 1965 Unknown [id number] 2.16.840.1.577386.3.579.2.1 259 1965 Unknown [id number] 2.16.840.1.742283.3.579.2.1 259 1965 Unknown [id number] 2.16.840.1.900910.3.579.2.1 259 1965 Unknown [id number] 2.16.840.1.789027.3.579.2.1 259 1965 Unknown [id number] 2.16840.1.781085.3.579.2.1 259 1965 Unknown [id number] 2.16.840.1.497405.3.579.2.1 259 1965 Unknown [id number] 2.16.840.1.434076.3.579.2.1 259 1959 Unknown [id number] Unknown [id number] 2.16.840.1.293281.3.579.2.5 31 Social History Date Type Detail Facility Start: 08-17-2023 End: 08-19-2024 Tobacco smoking status [facility] Ex-smoker [facility] Start: 09-14-2000 End: 09-14-2015 History of tobacco use Current smoker [facility] Start: 09-14-2000 End: 09-14-2015 History of tobacco use Cigarette Smoker [facility] Start: 08-17-2023 End: 11-09-2024 Cigarettes smoked current (pack per day) - Reported 1 [facility] Start: 08-17-2023 End: 08-19-2024 Tobacco use and exposure Smokeless tobacco non-user [facility] Start: 05-25-2024 End: 03-06-2025 Alcoholic beverage intake Ex-drinker (finding) [facility] Start: 08-18-2023 End: 11-09-2024 Humiliation, Afraid, [...] coffee daily , Soda 1 per day [facility] Start: 1965 Sex assigned at Not on file [facility] Tobacco smoking stat [facility] Tobacco smoking consumption unknown [facility] Clinical Notes 01-28-2022 to 03-06-2025 Bijal Antunez NP - 03/06/2025 4:21 PM Brent Antunez NP - 03/06/2025 4:21 PM Brent Antunez NP - 03/06/2025 4:21 PM EDTHUMBARGEELISEO Johnson - 03/06/2025 3:40 PM EDTPatient Instructions Note Date & Type Note Facility 03-06-2025 History of Presen t illness Narrative Associated Problem(s): Class 3 severe obesity without serious comorbidity in adult Discussed with patient their BMI (actual, verses recommended). We have also discussed lifestyle modifications: attempts to perform physical activity as chronic conditions allow, also to monitor dietary intake: increasing protein/fruits/veggies and lowering carb intake (unless contraindicated). Limit sodas, juices, and sugary drinks. Associated Problem(s): Mass of gallbladder MRI ordered Associated Problem(s): Abnormal gallbladder ultrasound Ordering MRI Pt would like us to try to send her referral out, she is unable to get in until mid March for a consult and is unsure if another gen surgeon or GI could get her in sooner. Images from the original note were not included. Arianna Lozada is a 59 y.o. female presents with chief complaint of Hospital Follow-up HPI: Here for recheck: Thursday night into Thursday started with pain again, RUQ into back area, takes breath away Went to [facility], had Abnormal GBUS: had stones, and [...] sulfate 325 mg, Daily with breakfast fexofenadine (CONCHIS) 180 mg, Daily hydroCHLOROthiazide (HYDRODIURIL) 25 mg, Oral, 2 times daily PRN HYDROcodone-acetaminophen ([place]) 5-325 MG tablet 1 tablet, Oral, Every 8 hours PRN ibuprofen 800 mg, Oral, 3 times daily PRN levothyroxine (SYNTHROID) 150 mcg, Oral, Daily before breakfast nystatin-triamcinolone (Mycolog II) cream 1 application , Topical, Every 12 hours ondansetron (ZOFRAN) 4 mg, Every 8 hours PRN ALLERGIES: Allergies Allergen Reactions Elisabeth Inhibitors Angioedema REVIEW OF SYMPTOMS: Review of [...] HYSTERECTOMY 2016 STAH BSO TUBAL LIGATION 1988 family history [...] Size: Large adult) Pulse 75 Temp 98.5 F (Temporal) Resp 20 Wt 272 lb 6.4 oz SpO2 96% BMI 42.66 kg/m OB Status Hysterectomy Smoking Status Former BSA 2.42 m Physical Exam Vitals and nursing note [...] on GBUS, wanted to observe, was in [facility] on 03/01/25 Had another US, did show ??mass near gallbladder, recommended MRI abd This was ordered Relevant Medications ondansetron (Zofran) 4 MG tablet Other Relevant Orders Ambulatory referral to General Surgery Abnormal gallbladder ultrasound Relevant Medications ondansetron (Zofran) 4 MG tablet Other Relevant Orders Ambulatory referral to General Surgery Mass of gallbladder Relevant Orders Ambulatory referral to General Surgery Associated Problem(s): Postprandial RUQ pain Hx stones on GBUS, wanted to observe, was in [facility] on 03/01/25 Had another US, did show ??mass near gallbladder, recommended MRI abd This was ordered documented in this encounter [facility] 03-06-2025 Instructions Bijal Antunez NP - 03/06/2025 3:40 PM EDT Freq small meals, avoid high fat meals May take stool softener Fluids as tolerated If yellowing of skin, urine looks dk like ice or worsening pain go back to Er documented in this encounter [facility] 02-23-2025 History of Presen t illness Narrative Skin Check Location: Patient requests a skin examination from the waist up Dermatologic history: no history of skin cancer, no history of atypical moles, no family history of melanoma Last visit: 25 years ago New patient, [...] Hands Examined Digits,nails: Examined Patient wearing nail korean, Denies dark streaks under finger nails Lymphatics: [...] benign pigmented lesions that occur on sun-exposed and sun-damaged skin. No treatment is necessary. Recommended regular [...] yearly skin exams documented in this encounter [facility] 02-15-2025 History of Presen t illness Narrative Associated Problem(s): Neoplasm of uncertain behavior Refer to Derm Associated Problem(s): Thyroid nodule (CMS/HCC) Hx of this no longer follows with ENT Check thyroid US Associated Problem(s): Acquired hypothyroidism (CMS/HCC) Continue levothyroxine Check labs yearly and prn dose change or change in symptoms Images from the original note were not [...] significant improvement. There is no history of CAD/VA, heart failure or PVD. Identifiable causes of hypertension include a thyroid problem. Thyroid Problem Presents for follow-up visit. Patient reports no anxiety, constipation, diarrhea, hair loss, heat intolerance, hoarse voice, palpitations, tremors or weight gain. The symptoms have been stable. There is no history of heart failure. SUBJECTIVE: MEDICATIONS: [...] sulfate 325 mg, Daily with breakfast fexofenadine (CONCHIS) 180 mg, Daily hydroCHLOROthiazide (HYDRODIURIL) 25 mg, Oral, 2 times daily PRN ibuprofen 800 mg, Oral, 3 times daily PRN levothyroxine (SYNTHROID) 150 mcg, Oral, Daily before breakfast nystatin-triamcinolone (Mycolog II) cream 1 application , Topical, Every 12 hours ALLERGIES: Allergies Allergen Reactions Elisabeth Inhibitors Angioedema REVIEW OF SYMPTOMS: Review of [...] HYSTERECTOMY 2016 STAH BSO TUBAL LIGATION 1988 family history [...] Vitals BP 120/82 Pulse 86 Temp 97.6 F (Temporal) Resp 18 Wt 271 lb 3.2 oz SpO2 95% BMI 42.48 kg/m OB Status Hysterectomy Smoking Status Former BSA 2.41 m Physical Exam Vitals and nursing note [...] Relevant Medications hydroCHLOROthiazide (HYDRODiuril) 25 MG tablet Associated Problem(s): Mixed hyperlipidemia (CMS/HCC) On statin therapy Check labs yearly and prn dose changes Associated Problem(s): Class 3 severe obesity without serious comorbidity in adult Discussed with patient their BMI (actual, verses recommended). We have also discussed lifestyle modifications: attempts to perform physical activity as chronic conditions allow, also to monitor dietary intake: increasing protein/fruits/veggies and lowering carb intake (unless contraindicated). Limit sodas, juices, and sugary drinks. No longer on GLP 1 therapy Associated Problem(s): Bilateral lower extremity edema Stable, adjusts the 2nd dose of hydrochlorothiazide when swelling is worse Compression stockings as well Limit sodium, elevate legs when possible Associated Problem(s): Primary hypertension (CMS/HCC) Please check blood pressure daily and record DASH diet Limit caffeine Take medication as directed Contact office if chest pain, pressure, dizziness, shortness of breath, swelling legs Recommend slow position changes Hx of angioedema in 2024 while taking lisinopril Current meds: carvedilol Associated Problem(s): Postprandial RUQ pain GBUS did indicate gall stones present Has not had any episodes of pain since off wegovy Wants to monitor will let me know if worsening sxs documented in this encounter [facility] 02-15-2025 Instructions Bijal Antunez NP - 02/15/2025 8:40 AM EDT Thyroid US: [facility] [phone] ext [phone] Dermatology: placed referral Labs: fasting documented in this encounter [facility] 12-30-2024 History of Presen t illness Narrative Associated Problem(s): Primary hypertension (CMS/HCC) Lisinopril discontinued d/t episode of angioedema in 01/06 Stop lisinopril, will trial documented in this encounter [facility] 11-15-2024 History of Presen t illness Narrative Associated Problem(s): Postprandial RUQ pain Freq small meals, check GBUS May need HIDA Images from the original note were not included. Arianna Lozada is a 59 y.o. female presents with chief complaint of No chief complaint on file. HPI: Obesity: not taking any GLP 1 med for a few months, she did contact [facility] [facility], she can get the medication from the [...] compliance problems. There is no history of CAD/VA, heart failure or PVD. Edema Presents with [...] HYSTERECTOMY 2016 STAH BSO TUBAL LIGATION 1988 family history [...] List Items Addressed This Visit Acquired hypothyroidism ([facility]/HCC) Current med: levothyroxine Check labs yearly and prn dose change, or changes in symptoms Class 3 severe obesity without serious comorbidity in adult ([facility]) Discussed with patient their BMI (actual, verses recommended). We have also discussed lifestyle modifications: attempts to perform physical activity as chronic conditions allow, also to monitor dietary intake: increasing protein/fruits/veggies and lowering carb intake (unless contraindicated). Limit sodas, juices, and sugary drinks. No currently on any GLP 1 meds Will wait for info to come from [email or web address] Primary hypertension ([facility]/HCC) - Primary Please check blood pressure daily [...] hydrochlorothiazide and lisinopril documented in this encounter [facility] 11-15-2024 Instructions Bijal Antunez NP - 11/15/2024 3:00 PM EST Get me info from [facility] [facility] for [employer] Check gall bladder ultra sound, and I will refax order for mammogram at [facility]; [phone]-ext [phone] documented in this encounter [facility] 09-14-2024 Telephone encounter Note Please tell pt [...] weeks to see if still elevated LA [facility] 09-14-2024 Miscellaneous Notes Please tell pt overall [...] still elevated LA documented in this encounter [facility] 08-22-2024 History of Presen t illness Narrative Images from the original note were not included. Humberto Barakat, DO Obstetrics and Gynecology Arianna Burley 1965 08/22/24 [id number] Yearly Wellness Exam Chief Complaint Patient presents with Gynecologic Exam LMP: STAH BSO 2016 HRT: Estradiol 2 MG - satisfied. Last pap 08-17-23 neg. Mammograms ordered by PCP at [facility]. Denies breast, urinary, or bowel concerns. Menopause [...] costovertebral angle tenderness, no obvious scoliosis/kyphosis. 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 Humberto Barakat. Signature Lauren Christie MA Date 08/22/24 . Time 10:22 AM . The documentation recorded by the scribe accurately reflects the service(s) I personally performed and the decisions I made. Signature Lizzette Barakat D.O. Date 08/22/24 Time 5:00PM. documented in this encounter [facility] 08-17-2024 History of Presen t illness Narrative [...] There is no history of kidney disease, CAD/VA or PVD. Sinusitis The current episode started [...] Morbid (severe) obesity due to excess calories ([facility]) Discussed with patient their BMI (actual, verses recommended). We have also discussed lifestyle modifications: attempts to perform physical activity as chronic conditions allow, also to monitor dietary intake: increasing protein/fruits/veggies and lowering carb intake (unless contraindicated). Limit sodas, juices, and sugary drinks. Currently taking Wegovy has been on this : Total weight loss: Body mass index (BMI) 45.0-49.9, adult ([facility]) Encounter for adult wellness visit - [...] tablet Other Visit Diagnoses Essential (primary) hypertension ([facility]) Relevant Medications lisinopril 20 MG tablet hydroCHLOROthiazide (HYDRODiuril) 25 MG tablet Pure hyperglyceridemia ([facility]) Relevant Medications atorvastatin (Lipitor) 40 MG tablet Associated Problem(s): Encounter for adult wellness visit Reviewed Ht/Wt/BMI Recommend eye exam yearly Recommend dental exams twice a year Balance work/leisure activities Exercises is recommended most days of the week (appropriate as chronic conditions allow) Follow up yearly and prn Associated Problem(s): Class 3 severe obesity without serious comorbidity in adult ([facility]/HCC) Discussed with patient their BMI (actual, [...] hydrochlorothiazide and lisinopril documented in this encounter [facility] 08-17-2024 Instructions Bijal Antunez NP - 08/17/2024 3:40 PM EST If not better after atb for sinuses contact office, may use nasal saline irrigation documented in this encounter [facility] 05-25-2024 History of Presen t illness Narrative [...] the original note were not included. Arianna Lozaad is a 59 y.o. female presents with [...] on PF exerxcises documented in this encounter [facility] 10-14-2022 Note PROCEDURE: XR ANKLE RT MIN [...] authenticated by: MEGAN DANGELO Date: 2022-10-14 11:36 [facility] 10-14-2022 Note PROCEDURE: XR ANKLE RT [...] by: MEGAN DANGELO Date: 2022-10-14 11:36 [facility] 08-14-2022 Note PROCEDURE: XR FOOT [...] or change in alignment. Electronically authenticated by: DESTIN MCDONOUGH Date: 2022-08-13 23:22 [facility] 06-03-2022 Note PROCEDURE: XR FOOT [...] No acute bone abnormality. Electronically authenticated by: DESTIN MCDONOUGH Date: 2022-06-03 16:04 [facility] 03-25-2022 Note PROCEDURE: XR FOOT [...] by: MEGAN DANGELO Date: 2022-03-25 19:35 [facility] 01-28-2022 Note PROCEDURE: XR FOOT [...] or change in alignment. Electronically authenticated by: DESTIN MCDONOUGH Date: 2022-01-28 14:19 [facility] Evaluation note Diagnosis Primary hypertension [...] chronic pain- Primary documented in this encounter [facility] Healthcare[facility] note* Diagnosis Primary hypertension (CMS/HCC)- [...] 45.0 to 49.9 in adult ([facility]) Bilateral lower extremity edema Class 3 severe obesity due to excess calories without serious comorbidity with body mass index (BMI) of 45.0 to 49.9 in adult ([facility]/HCC)- Primary documented in this encounter [facility] Healthcare[facility] note* Diagnosis Primary hypertension ([facility]/HCC)- Primary Unspecified essential hypertension Class 3 severe obesity due to excess calories without serious comorbidity with body mass index (BMI) of 45.0 to 49.9 in adult ([facility]) Acquired hypothyroidism ([facility]) Unspecified hypothyroidism Rash Rash and other nonspecific skin eruption Primary hypertension ([facility]/HCC)- Primary Unspecified essential hypertension Bilateral lower extremity edema Class 3 severe obesity due to excess calories without serious comorbidity with body mass index (BMI) of 45.0 to 49.9 in adult ([facility]) Plantar fasciitis, right- Primary Primary hypertension ([facility]) Unspecified essential hypertension Class 3 severe obesity due to excess calories without serious comorbidity with body mass index (BMI) of 45.0 to 49.9 in adult ([facility]) Bilateral lower extremity edema Encounter for adult wellness visit- Primary Morbid (severe) obesity due to excess calories (CMS/HCC) Body mass index (BMI) 45.0-49.9, adult ([facility]) Primary hypertension ([facility]/HCC) Unspecified essential hypertension Bilateral lower extremity edema Class 3 severe obesity due to excess calories without serious comorbidity with body mass index (BMI) of 45.0 to 49.9 in adult ([facility]) Essential (primary) hypertension ([facility]/HCC) Unspecified essential hypertension Pure hyperglyceridemia ([facility]) Pure hyperglyceridemia Acute non-recurrent maxillary sinusitis documented in this encounter [facility] Healthcare[facility] note* Diagnosis Primary hypertension ([facility]/HCC)- Primary Unspecified essential hypertension Class 3 severe obesity due to excess calories without serious comorbidity with body mass index (BMI) of 45.0 to 49.9 in adult ([facility]) Acquired hypothyroidism ([facility]) Unspecified hypothyroidism Rash Rash and other nonspecific skin eruption Primary hypertension ([facility]/HCC)- Primary Unspecified essential hypertension Bilateral lower extremity edema Class 3 severe obesity due to excess calories without serious comorbidity with body mass index (BMI) of 45.0 to 49.9 in adult ([facility]) Plantar fasciitis, right- Primary Primary hypertension ([facility]/HCC) Unspecified essential hypertension Class 3 severe obesity due to excess calories without serious comorbidity with body mass index (BMI) of 45.0 to 49.9 in adult ([facility]) Bilateral lower extremity edema Encounter for adult wellness visit- Primary Morbid (severe) obesity due to excess calories ([facility]) Body mass index (BMI) 45.0-49.9, adult ([facility]) Primary hypertension ([facility]) Unspecified essential hypertension Bilateral lower extremity edema Class 3 severe obesity due to excess calories without serious comorbidity with body mass index (BMI) of 45.0 to 49.9 in adult ([facility]) Essential (primary) hypertension ([facility]/HCC) Unspecified essential hypertension Pure hyperglyceridemia ([facility]) Pure hyperglyceridemia Acute non-recurrent maxillary sinusitis Encounter for gynecological examination without abnormal finding Screening for malignant neoplasm of cervix Screening for malignant neoplasm of the cervix Breast cancer screening by mammogram Hormone replacement therapy documented in this encounter [facility]Evaluation [facility]* Diagnosis Plantar fasciitis, right- Primary Primary hypertension ([facility]/HCC) Unspecified essential hypertension Class 3 severe obesity due to excess calories without serious comorbidity with body mass index (BMI) of 45.0 to 49.9 in adult ([facility]) Bilateral lower extremity edema documented in this encounter [facility]Evaluation note* Diagnosis Primary hypertension ([facility]/HCC)- Primary Unspecified essential hypertension Class 3 severe obesity due to excess calories without serious comorbidity with body mass index (BMI) of 45.0 to 49.9 in adult ([facility]) Acquired hypothyroidism ([facility]) Unspecified hypothyroidism Rash Rash and other nonspecific skin eruption Primary hypertension ([facility]/HCC)- Primary Unspecified essential hypertension Bilateral lower extremity edema Class 3 severe obesity due to excess calories without serious comorbidity with body mass index (BMI) of 45.0 to 49.9 in adult ([facility]) Plantar fasciitis, right- Primary Primary hypertension ([facility]/HCC) Unspecified essential hypertension Class 3 severe obesity due to excess calories without serious comorbidity with body mass index (BMI) of 45.0 to 49.9 in adult ([facility]) Bilateral lower extremity edema Encounter for adult wellness visit- Primary Morbid (severe) obesity due to excess calories ([facility]) Body mass index (BMI) 45.0-49.9, adult ([facility]) Primary hypertension ([facility]/HCC) Unspecified essential hypertension Bilateral lower extremity edema Class 3 severe obesity due to excess calories without serious comorbidity with body mass index (BMI) of 45.0 to 49.9 in adult ([facility]) Essential (primary) hypertension ([facility]/HCC) Unspecified essential hypertension Pure hyperglyceridemia ([facility]/HCC) Pure hyperglyceridemia Acute non-recurrent maxillary sinusitis Class 3 severe obesity due to excess calories without serious comorbidity with body mass index (BMI) of 40.0 to 44.9 in adult ([facility])- Primary documented in this encounter [facility]* Diagnosis Primary hypertension ([facility]/HCC)- Primary Unspecified essential hypertension Class 3 severe obesity due to excess calories without serious comorbidity with body mass index (BMI) of 45.0 to 49.9 in adult ([facility]) Acquired hypothyroidism ([facility]) Unspecified hypothyroidism Rash Rash and other nonspecific skin eruption Primary hypertension ([facility])- Primary Unspecified essential hypertension Bilateral lower extremity edema Class 3 severe obesity due to excess calories without serious comorbidity with body mass index (BMI) of 45.0 to 49.9 in adult ([facility]) Plantar fasciitis, right- Primary Primary hypertension ([facility]) Unspecified essential hypertension Class 3 severe obesity due to excess calories without serious comorbidity with body mass index (BMI) of 45.0 to 49.9 in adult ([facility]) Bilateral lower extremity edema Encounter for adult wellness visit- Primary Morbid (severe) obesity due to excess calories ([facility]) Body mass index (BMI) 45.0-49.9, adult ([facility]) Primary hypertension ([facility]/HCC) Unspecified essential hypertension Bilateral lower extremity edema Class 3 severe obesity due to excess calories without serious comorbidity with body mass index (BMI) of 45.0 to 49.9 in adult ([facility]) Essential (primary) hypertension ([facility]) Unspecified essential hypertension Pure hyperglyceridemia ([facility]) Pure hyperglyceridemia Acute non-recurrent maxillary sinusitis Elevated liver function tests- Primary Other abnormal blood chemistry documented in this encounter [facility]* Diagnosis Primary hypertension ([facility]/HCC)- Primary Unspecified essential hypertension Class 3 [...] (CMS/HCC) Body mass index (BMI) 45.0-49.9, adult ([facility]) Primary hypertension (CMS/HCC) Unspecified essential hypertension Bilateral lower extremity edema Class 3 severe obesity due to excess calories without serious comorbidity with body mass index (BMI) of 45.0 to 49.9 in adult ([facility]) Essential (primary) hypertension (CMS/HCC) Unspecified essential hypertension Pure hyperglyceridemia ([facility]/HCC) Pure hyperglyceridemia Acute non-recurrent maxillary sinusitis UTI symptoms- Primary documented in this encounter [facility] HealthcareEvaluation note* Diagnosis Primary hypertension (CMS/HCC)- [...] 45.0 to 49.9 in adult ([facility]) Bilateral lower extremity edema Encounter for adult wellness visit- Primary Morbid (severe) obesity due to excess calories (CMS/HCC) Body mass index (BMI) 45.0-49.9, adult ([facility]) Primary hypertension (CMS/HCC) Unspecified essential hypertension Bilateral lower extremity edema Class 3 severe obesity due to excess calories without serious comorbidity with body mass index (BMI) of 45.0 to 49.9 in adult (CMS/HCC) Essential (primary) hypertension (CMS/HCC) Unspecified essential hypertension Pure hyperglyceridemia (CMS/HCC) Pure hyperglyceridemia Acute non-recurrent maxillary sinusitis Primary hypertension (CMS/HCC)- Primary Unspecified essential hypertension Elevated liver function tests Other abnormal blood chemistry Bilateral lower extremity edema Acquired hypothyroidism (CMS/HCC) Unspecified hypothyroidism Class 3 severe obesity due to excess calories without serious comorbidity with body mass index (BMI) of 40.0 to 44.9 in adult (CMS/HCC) Postprandial RUQ pain documented in this encounter [facility]* Diagnosis Primary hypertension (CMS/HCC)- Primary Unspecified essential hypertension Class 3 severe obesity due to excess calories without serious comorbidity with body mass index (BMI) of 45.0 to 49.9 in adult Acquired hypothyroidism (CMS/HCC) Unspecified hypothyroidism Rash Rash and other nonspecific skin eruption Primary hypertension (CMS/HCC)- Primary Unspecified essential hypertension Bilateral lower extremity edema Class 3 severe obesity due to excess calories without serious comorbidity with body mass index (BMI) of 45.0 to 49.9 in adult Plantar fasciitis, right- Primary Primary hypertension (CMS/HCC) Unspecified essential hypertension Class 3 severe obesity due to excess calories without serious comorbidity with body mass index (BMI) of 45.0 to 49.9 in adult Bilateral lower extremity edema Encounter for adult wellness visit- Primary Morbid (severe) obesity due to excess calories (CMS/HCC) Body mass index (BMI) 45.0-49.9, adult (CMS/HCC) Primary hypertension (CMS/HCC) Unspecified essential hypertension Bilateral lower extremity edema Class 3 severe obesity due to excess calories without serious comorbidity with body mass index (BMI) of 45.0 to 49.9 in adult Essential (primary) hypertension (CMS/HCC) Unspecified essential hypertension Pure hyperglyceridemia (CMS/HCC) Pure hyperglyceridemia Acute non-recurrent maxillary sinusitis Primary hypertension (CMS/HCC)- Primary Unspecified essential hypertension Elevated liver function tests Other abnormal blood chemistry Bilateral lower extremity edema Acquired hypothyroidism (CMS/HCC) Unspecified hypothyroidism Class 3 severe obesity due to excess calories without serious comorbidity with body mass index (BMI) of 40.0 to 44.9 in adult Postprandial RUQ pain Primary hypertension (CMS/HCC)- Primary Unspecified essential hypertension documented in this encounter [facility]* Diagnosis Primary hypertension (CMS/HCC)- Primary Unspecified essential hypertension Class 3 severe obesity due to excess calories without serious comorbidity with body mass index (BMI) of 45.0 to 49.9 in adult Acquired hypothyroidism (CMS/HCC) Unspecified hypothyroidism Rash Rash and other nonspecific skin eruption Primary hypertension (CMS/HCC)- Primary Unspecified essential hypertension Bilateral lower extremity edema Class 3 severe obesity due to excess calories without serious comorbidity with body mass index (BMI) of 45.0 to 49.9 in adult Plantar fasciitis, right- Primary Primary hypertension (CMS/HCC) Unspecified essential hypertension Class 3 severe obesity due to excess calories without serious comorbidity with body mass index (BMI) of 45.0 to 49.9 in adult Bilateral lower extremity edema Encounter for adult wellness visit- Primary Morbid (severe) obesity due to excess calories (CMS/HCC) Body mass index (BMI) 45.0-49.9, adult (CMS/HCC) Primary hypertension (CMS/HCC) Unspecified essential hypertension Bilateral lower extremity edema Class 3 severe obesity due to excess calories without serious comorbidity with body mass index (BMI) of 45.0 to 49.9 in adult Essential (primary) hypertension (CMS/HCC) Unspecified essential hypertension Pure hyperglyceridemia (CMS/HCC) Pure hyperglyceridemia Acute non-recurrent maxillary sinusitis Primary hypertension (CMS/HCC)- Primary Unspecified essential hypertension Elevated liver function tests Other abnormal blood chemistry Bilateral lower extremity edema Acquired hypothyroidism (CMS/HCC) Unspecified hypothyroidism Class 3 severe obesity due to excess calories without serious comorbidity with body mass index (BMI) of 40.0 to 44.9 in adult Postprandial RUQ pain Primary hypertension (CMS/HCC)- Primary Unspecified essential hypertension Other chronic pain documented in this encounter [facility] HealthcareEvaluation note* Diagnosis Primary hypertension (CMS/HCC)- Primary Unspecified essential hypertension Class 3 severe obesity due to excess calories without serious comorbidity with body mass index (BMI) of 45.0 to 49.9 in adult Acquired hypothyroidism (CMS/HCC) Unspecified hypothyroidism Rash Rash and other nonspecific skin eruption Primary hypertension (CMS/HCC)- Primary Unspecified essential hypertension Bilateral lower extremity edema Class 3 severe obesity due to excess calories without serious comorbidity with body mass index (BMI) of 45.0 to 49.9 in adult Plantar fasciitis, right- Primary Primary hypertension (CMS/HCC) Unspecified essential hypertension Class 3 severe obesity due to excess calories without serious comorbidity with body mass index (BMI) of 45.0 to 49.9 in adult Bilateral lower extremity edema Encounter for adult wellness visit- Primary Morbid (severe) obesity due to excess calories ([facility]/HCC) Body mass index (BMI) 45.0-49.9, adult ([facility]) Primary hypertension ([facility]) Unspecified essential hypertension Bilateral lower extremity edema Class 3 severe obesity due to excess calories without serious comorbidity with body mass index (BMI) of 45.0 to 49.9 in adult Essential (primary) hypertension (CMS/HCC) Unspecified essential hypertension Pure hyperglyceridemia (CMS/HCC) Pure hyperglyceridemia Acute non-recurrent maxillary sinusitis Primary hypertension (CMS/HCC)- Primary Unspecified essential hypertension Elevated liver function tests Other abnormal blood chemistry Bilateral lower extremity edema Acquired hypothyroidism ([facility]) Unspecified hypothyroidism Class 3 severe obesity due to excess calories without serious comorbidity with body mass index (BMI) of 40.0 to 44.9 in adult Postprandial RUQ pain Primary hypertension ([facility])- Primary Unspecified essential hypertension Rash and other nonspecific skin eruption documented in this encounter [facility] HealthcareEvaluation note* Diagnosis Primary hypertension- Primary Unspecified essential hypertension Class 3 severe obesity due to excess calories without serious comorbidity with body mass index (BMI) of 45.0 to 49.9 in adult ([facility]) Acquired hypothyroidism Unspecified hypothyroidism Rash Rash and other nonspecific skin eruption Primary hypertension- Primary Unspecified essential hypertension Bilateral lower extremity edema Class 3 severe obesity due to excess calories without serious comorbidity with body mass index (BMI) of 45.0 to 49.9 in adult ([facility]) Plantar fasciitis, right- Primary Primary hypertension Unspecified essential hypertension Class 3 severe obesity due to excess calories without serious comorbidity with body mass index (BMI) of 45.0 to 49.9 in adult ([facility]) Bilateral lower extremity edema Encounter for adult wellness visit- Primary Morbid (severe) obesity due to excess calories ([facility]-HCC) Body mass index (BMI) 45.0-49.9, adult ([facility]) Primary hypertension Unspecified essential hypertension Bilateral lower extremity edema Class 3 severe obesity due to excess calories without serious comorbidity with body mass index (BMI) of 45.0 to 49.9 in adult ([facility]) Essential (primary) hypertension Unspecified essential hypertension Pure hyperglyceridemia Pure hyperglyceridemia Acute non-recurrent maxillary sinusitis Primary hypertension- Primary Unspecified essential hypertension Elevated liver function tests Other abnormal blood chemistry Bilateral lower extremity edema Acquired hypothyroidism Unspecified hypothyroidism Class 3 severe obesity due to excess calories without serious comorbidity with body mass index (BMI) of 40.0 to 44.9 in adult ([facility]) Postprandial RUQ pain Primary hypertension- Primary Unspecified essential hypertension Primary hypertension- Primary Unspecified essential hypertension Postprandial RUQ pain Bilateral lower extremity edema Class 3 severe obesity due to excess calories without serious comorbidity with body mass index (BMI) of 40.0 to 44.9 in adult ([facility]) Mixed hyperlipidemia Mixed hyperlipidemia Pure hyperglyceridemia Pure hyperglyceridemia Essential (primary) hypertension Unspecified essential hypertension Acquired hypothyroidism Unspecified hypothyroidism Other chronic pain Vitamin D deficiency Thyroid nodule Nontoxic uninodular goiter 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, site unspecified Melanocytic nevus of upper extremity, unspecified laterality- Primary Melanocytic nevus of face, other location Melanocytic nevus of trunk Benign neoplasm of skin of trunk, except scrotum Lentigo simplex Other dyschromia Seborrheic keratosis Acrochordon Unspecified hypertrophic and atrophic condition of skin documented in this encounter [facility] HealthcareEvaluation note* Diagnosis Primary hypertension ([facility])- Primary Unspecified essential hypertension Class 3 severe obesity due to excess calories without serious comorbidity with body mass index (BMI) of 45.0 to 49.9 in adult Acquired hypothyroidism ([facility]) Unspecified hypothyroidism Rash Rash and other nonspecific skin eruption Primary hypertension ([facility]/HCC)- Primary Unspecified essential hypertension Bilateral lower extremity edema Class 3 severe obesity due to excess calories without serious comorbidity with body mass index (BMI) of 45.0 to 49.9 in adult Plantar fasciitis, right- Primary Primary hypertension ([facility]) Unspecified essential hypertension Class 3 severe obesity due to excess calories without serious comorbidity with body mass index (BMI) of 45.0 to 49.9 in adult Bilateral lower extremity edema Encounter for adult wellness visit- Primary Morbid (severe) obesity due to excess calories ([facility]) Body mass index (BMI) 45.0-49.9, adult ([facility]) Primary hypertension ([facility]/HCC) Unspecified essential hypertension Bilateral lower extremity edema Class 3 severe obesity due to excess calories without serious comorbidity with body mass index (BMI) of 45.0 to 49.9 in adult Essential (primary) hypertension ([facility]/HCC) Unspecified essential hypertension Pure hyperglyceridemia (CMS/HCC) Pure hyperglyceridemia Acute non-recurrent maxillary sinusitis Primary hypertension (CMS/HCC)- Primary Unspecified essential hypertension Elevated liver function tests Other abnormal blood chemistry Bilateral lower extremity edema Acquired hypothyroidism (CMS/HCC) Unspecified hypothyroidism Class 3 severe obesity due to excess calories without serious comorbidity with body mass index (BMI) of 40.0 to 44.9 in adult Postprandial RUQ pain Primary hypertension (CMS/HCC)- Primary Unspecified essential hypertension Primary hypertension (CMS/HCC)- Primary Unspecified essential hypertension Postprandial RUQ pain Bilateral lower extremity edema Class 3 severe obesity due to excess calories without serious comorbidity with body mass index (BMI) of 40.0 to 44.9 in adult Mixed hyperlipidemia (CMS/HCC) Mixed hyperlipidemia Pure hyperglyceridemia (CMS/HCC) Pure hyperglyceridemia Essential (primary) hypertension (CMS/HCC) Unspecified essential hypertension Acquired hypothyroidism (CMS/HCC) Unspecified hypothyroidism Other chronic pain Vitamin D deficiency Thyroid nodule ([facility]/HCC) Nontoxic uninodular goiter 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, site unspecified documented in this encounter [facility] HealthcareEvaluation note* Diagnosis Primary hypertension- Primary Unspecified essential hypertension Class 3 severe obesity due to excess calories without serious comorbidity with body mass index (BMI) of 45.0 to 49.9 in adult ([facility]) Acquired hypothyroidism Unspecified hypothyroidism Rash Rash and other nonspecific skin eruption Primary hypertension- Primary Unspecified essential hypertension Bilateral lower extremity edema Class 3 severe obesity due to excess calories without serious comorbidity with body mass index (BMI) of 45.0 to 49.9 in adult ([facility]) Plantar fasciitis, right- Primary Primary hypertension Unspecified essential hypertension Class 3 severe obesity due to excess calories without serious comorbidity with body mass index (BMI) of 45.0 to 49.9 in adult ([facility]) Bilateral lower extremity edema Encounter for adult wellness visit- Primary Morbid (severe) obesity due to excess calories ([facility]) Body mass index (BMI) 45.0-49.9, adult ([facility]) Primary hypertension Unspecified essential hypertension Bilateral lower extremity edema Class 3 severe obesity due to excess calories without serious comorbidity with body mass index (BMI) of 45.0 to 49.9 in adult ([facility]) Essential (primary) hypertension Unspecified essential hypertension Pure hyperglyceridemia Pure hyperglyceridemia Acute non-recurrent maxillary sinusitis Primary hypertension- Primary Unspecified essential hypertension Elevated liver function tests Other abnormal blood chemistry Bilateral lower extremity edema Acquired hypothyroidism Unspecified hypothyroidism Class 3 severe obesity due to excess calories without serious comorbidity with body mass index (BMI) of 40.0 to 44.9 in adult [place] [place] Postprandial RUQ pain Primary hypertension- Primary Unspecified essential hypertension Primary hypertension- Primary Unspecified essential hypertension Postprandial RUQ pain Bilateral lower extremity edema Class 3 severe obesity due to excess calories without serious comorbidity with body mass index (BMI) of 40.0 to 44.9 in adult [place] [place] Mixed hyperlipidemia Mixed hyperlipidemia Pure hyperglyceridemia Pure hyperglyceridemia Essential (primary) hypertension Unspecified essential hypertension Acquired hypothyroidism Unspecified hypothyroidism Other chronic pain Vitamin D deficiency Thyroid nodule Nontoxic uninodular goiter 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, site unspecified Postprandial RUQ pain- Primary Abnormal gallbladder ultrasound documented in this encounter [facility] HealthcareEvaluation note* Diagnosis Primary hypertension- Primary Unspecified essential hypertension Class 3 severe obesity due to excess calories without serious comorbidity with body mass index (BMI) of 45.0 to 49.9 in adult [place] [place] Acquired hypothyroidism Unspecified hypothyroidism Rash Rash and other nonspecific skin eruption Primary hypertension- Primary Unspecified essential hypertension Bilateral lower extremity edema Class 3 severe obesity due to excess calories without serious comorbidity with body mass index (BMI) of 45.0 to 49.9 in adult [place] [place] Plantar fasciitis, right- Primary Primary hypertension Unspecified essential hypertension Class 3 severe obesity due to excess calories without serious comorbidity with body mass index (BMI) of 45.0 to 49.9 in adult [place] Bilateral lower extremity edema Encounter for adult wellness visit- Primary Morbid (severe) obesity due to excess calories [place] Body mass index (BMI) 45.0-49.9, adult [place] Primary hypertension Unspecified essential hypertension Bilateral lower extremity edema Class 3 severe obesity due to excess calories without serious comorbidity with body mass index (BMI) of 45.0 to 49.9 in adult [place] Essential (primary) hypertension Unspecified essential hypertension Pure hyperglyceridemia Pure hyperglyceridemia Acute non-recurrent maxillary sinusitis Primary hypertension- Primary Unspecified essential hypertension Elevated liver function tests Other abnormal blood chemistry Bilateral lower extremity edema Acquired hypothyroidism Unspecified hypothyroidism Class 3 severe obesity due to excess calories without serious comorbidity with body mass index (BMI) of 40.0 to 44.9 in adult [place] Postprandial RUQ pain Primary hypertension- Primary Unspecified essential hypertension Primary hypertension- Primary Unspecified essential hypertension Postprandial RUQ pain Bilateral lower extremity edema Class 3 severe obesity due to excess calories without serious comorbidity with body mass index (BMI) of 40.0 to 44.9 in adult [place] Mixed hyperlipidemia Mixed hyperlipidemia Pure hyperglyceridemia Pure hyperglyceridemia Essential (primary) hypertension Unspecified essential hypertension Acquired hypothyroidism Unspecified hypothyroidism Other chronic pain Vitamin D deficiency Thyroid nodule Nontoxic uninodular goiter 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, site unspecified Mass of gallbladder- Primary documented in this encounter [facility] HealthcareEvaluation note* Diagnosis Primary hypertension- Primary Unspecified essential hypertension Class 3 severe obesity due to excess calories without serious comorbidity with body mass index (BMI) of 45.0 to 49.9 in adult [place] Acquired hypothyroidism Unspecified hypothyroidism Rash Rash and other nonspecific skin eruption Primary hypertension- Primary Unspecified essential hypertension Bilateral lower extremity edema Class 3 severe obesity due to excess calories without serious comorbidity with body mass index (BMI) of 45.0 to 49.9 in adult [place] Plantar fasciitis, right- Primary Primary hypertension Unspecified essential hypertension Class 3 severe obesity due to excess calories without serious comorbidity with body mass index (BMI) of 45.0 to 49.9 in adult [place] Bilateral lower extremity edema Encounter for adult wellness visit- Primary Morbid (severe) obesity due to excess calories [place] Body mass index (BMI) 45.0-49.9, adult [place] Primary hypertension Unspecified essential hypertension Bilateral lower extremity edema Class 3 severe obesity due to excess calories without serious comorbidity with body mass index (BMI) of 45.0 to 49.9 in adult [place] Essential (primary) hypertension Unspecified essential hypertension Pure hyperglyceridemia Pure hyperglyceridemia Acute non-recurrent maxillary sinusitis Primary hypertension- Primary Unspecified essential hypertension Elevated liver function tests Other abnormal blood chemistry Bilateral lower extremity edema Acquired hypothyroidism Unspecified hypothyroidism Class 3 severe obesity due to excess calories without serious comorbidity with body mass index (BMI) of 40.0 to 44.9 in adult [place] Postprandial RUQ pain Primary hypertension- Primary Unspecified essential hypertension Primary hypertension- Primary Unspecified essential hypertension Postprandial RUQ pain Bilateral lower extremity edema Class 3 severe obesity due to excess calories without serious comorbidity with body mass index (BMI) of 40.0 to 44.9 in adult [place] Mixed hyperlipidemia Mixed hyperlipidemia Pure hyperglyceridemia Pure hyperglyceridemia Essential (primary) hypertension Unspecified essential hypertension Acquired hypothyroidism Unspecified hypothyroidism Other chronic pain Vitamin D deficiency Thyroid nodule Nontoxic uninodular goiter 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, site unspecified Postprandial RUQ pain- Primary Mass of gallbladder documented in this encounter [facility] HealthcareEvaluation note* Diagnosis Primary hypertension- Primary Unspecified essential hypertension Class 3 severe obesity due to excess calories without serious comorbidity with body mass index (BMI) of 45.0 to 49.9 in adult [place] Acquired hypothyroidism Unspecified hypothyroidism Rash Rash and other nonspecific skin eruption Primary hypertension- Primary Unspecified essential hypertension Bilateral lower extremity edema Class 3 severe obesity due to excess calories without serious comorbidity with body mass index (BMI) of 45.0 to 49.9 in adult [place] Plantar fasciitis, right- Primary Primary hypertension Unspecified essential hypertension Class 3 severe obesity due to excess calories without serious comorbidity with body mass index (BMI) of 45.0 to 49.9 in adult [place] Bilateral lower extremity edema Encounter for adult wellness visit- Primary Morbid (severe) obesity due to excess calories [place] Body mass index (BMI) 45.0-49.9, adult [place] Primary hypertension Unspecified essential hypertension Bilateral lower extremity edema Class 3 severe obesity due to excess calories without serious comorbidity with body mass index (BMI) of 45.0 to 49.9 in adult [place] Essential (primary) hypertension Unspecified essential hypertension Pure hyperglyceridemia Pure hyperglyceridemia Acute non-recurrent maxillary sinusitis Primary hypertension- Primary Unspecified essential hypertension Elevated liver function tests Other abnormal blood chemistry Bilateral lower extremity edema Acquired hypothyroidism Unspecified hypothyroidism Class 3 severe obesity due to excess calories without serious comorbidity with body mass index (BMI) of 40.0 to 44.9 in adult [place] Postprandial RUQ pain Primary hypertension- Primary Unspecified essential hypertension Primary hypertension- Primary Unspecified essential hypertension Postprandial RUQ pain Bilateral lower extremity edema Class 3 severe obesity due to excess calories without serious comorbidity with body mass index (BMI) of 40.0 to 44.9 in adult [place] Mixed hyperlipidemia Mixed hyperlipidemia Pure hyperglyceridemia Pure hyperglyceridemia Essential (primary) hypertension Unspecified essential hypertension Acquired hypothyroidism Unspecified hypothyroidism Other chronic pain Vitamin D deficiency Thyroid nodule Nontoxic uninodular goiter 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, site unspecified Postprandial RUQ pain- Primary Abnormal gallbladder ultrasound Mass of gallbladder Class 3 severe obesity due to excess calories without serious comorbidity with body mass index (BMI) of 40.0 to 44.9 in adult ([facility]) documented in this encounter [facility] Summary [...] and content) DATE CREATED AUTHOR 01/23/2023 [facility] DATE CREATED AUTHOR AUTHOR'S ORGANIZ ATION 09/14/2024 [facility] DATE CREATED AUTHOR AUTHOR'S ORGANIZ ATION 11/10/2024 [facility] DATE CREATED AUTHOR AUTHOR'S ORGANIZ ATION 01/01/2025 [facility] DATE CREATED AUTHOR AUTHOR'S ORGANIZ ATION 03/07/2025 [facility] EPIC Reason for Visit (unrecogniz ed section and content) Reason Onset Date Comments Med Refill 08/07/2024 Reason Comments Hypertension Reason Comments Gynecologic Exam LMP: STAH BSO 2017HR T: Estradiol 2 MG - satisfied. Last pap 08-17-23 neg.Mammograms ordered by PCP at [facility]. Denies breast, urinary, or bowel concerns. Menopause Questions how long t o be on Estradiol. Reason Comments Med Refill Reason Comments Skin Check Suspicious Skin Lesion Specialty Diagnoses / Procedures Referred By Contrichard t Referred To Contact Dermatology Diagnoses Neoplasm of uncertain behavior Procedures CA OFFICE/OUTPATIENT NEW HIGH MDM 60 MINUTES Bijal Antunez NP [address] [place] [address] Phone: tel: fax: Sara Weber MD [address] [place] [address] Phone: tel: fax: Referral ID Status Reason Start Date Expiration Date V isits Requested Visits Authorized [id number] Closed Specialty Services Required 02/15/2025 08/14/2025 1 1 Reason Comments Hypertension Reason Comments Hospital Follow-up Care Teams (unrecognized sec tion and content) Supervisor Boat Outfitting Relationship Specialty Start Date End Date Charan Quinn MD [address] [place] [address] PCP - General Family Medicine 01/20/24 Bijal Antunez NP [address] [place] [address] PCP - [place] [employer] 12/14/23 Bijal Antunez NP [address] [place] [address] Nurse Practitioner Family Medicine 01/20/24 Supervisor Boat Outfitting Relationship Specialty Start Date End Date Charan Quinn MD [address] [place] [address] PCP - General Family Medicine 01/20/24 Bijal Antunez NP [address] [place] [address] PCP - [place] [employer] 12/14/23 Bijal Antunez NP [address] [place] [address] Nurse Practitioner Family Medicine 01/20/24 Supervisor Boat Outfitting Relationship Specialty Start Date End Date Charan Quinn MD [address] [place] [address] PCP - General Family Medicine 01/20/24 Bijal Antunez NP [address] [place] [address] PCP - [place] [employer] 12/14/23 Bijal Antunez NP [address] [place] [address] Nurse Practitioner Family Medicine 01/20/24 Supervisor Boat Outfitting Relationship Specialty Start Date End Date Charan Quinn MD [address] [place] [address] PCP - General Family Medicine 01/20/24 Bijal Antunez NP [address] [place] [address] PCP - [place] [employer] 12/14/23 Bijal Antunez NP [address] [place] [address] Nurse Practitioner Family Medicine 01/20/24 Supervisor Boat Outfitting Relationship Specialty Start Date End Date Charan Quinn MD [address] [place] [address] PCP - General Family Medicine 01/20/24 Bijal Antunez NP [address] [place] [address] PCP - [place] [employer] 12/14/23 Bijal Antunez NP [address] [place] [address] Nurse Practitioner Family Medicine 01/20/24 Supervisor Boat Outfitting Relationship Specialty Start Date End Date Charan Quinn MD [address] [place] [address] PCP - General Family Medicine 01/20/24 Bijal Antunez NP [address] [place] [address] PCP - [place] [employer] 12/14/23 Bijal Antunez NP [address] [place] [address] Nurse Practitioner Family Medicine 01/20/24 Supervisor Boat Outfitting Relationship Specialty Start Date End Date Charan Quinn MD [address] [place] [address] PCP - General Family Medicine 01/20/24 Bijal Antunez NP [address] [place] [address] PCP - [place] [employer] 12/14/23 Bijal Antunez NP [address] [place] [address] Nurse Practitioner Family Medicine 01/20/24 Supervisor Boat Outfitting Relationship Specialty Start Date End Date Charan Quinn MD [address] [place] [address] PCP - General Family Medicine 01/20/24 Bijal Antunez NP [address] [place] [address] PCP - [place] [employer] 12/14/23 Bijal Antunez NP [address] [place] [address] Nurse Practitioner Family Medicine 01/20/24 Supervisor Boat Outfitting Relationship Specialty Start Date End Date Charan Quinn MD [address] [place] [address] PCP - General Family Medicine 01/20/24 Bijal Antunez NP [address] [place] [address] PCP - [place] [employer] 12/14/23 Bijal Antunez NP [address] [place] [address] Nurse Practitioner Family Medicine 01/20/24 Supervisor Boat Outfitting Relationship Specialty Start Date End Date Charan Quinn MD [address] [place] [address] PCP - General Family Medicine 01/20/24 Bijal Anutnez NP [address] [place] [address] PCP - [place] [employer] 12/14/23 Bijal Antunez NP [address] [place] [address] Nurse Practitioner Family Medicine 01/20/24 Supervisor Boat Outfitting Relationship Specialty Start Date End Date Charan Quinn MD [address] [place] [address] PCP - General Family Medicine 01/20/24 Bijal Antunez NP [address] [place] [address] PCP - [place] [employer] 12/14/23 Bijal Antunez NP [address] [place] [address] Nurse Practitioner Family Medicine 01/20/24 Supervisor Boat Outfitting Relationship Specialty Start Date End Date Charan Quinn MD [address] [place] [address] PCP - General Family Medicine 01/20/24 Bijal Antunez NP [address] [place] [address] PCP - [place] [employer] 12/14/23 Bijal Antunez NP [address] [place] [address] Nurse Practitioner Family Medicine 01/20/24 Supervisor Boat Outfitting Relationship Specialty Start Date End Date Charan Quinn MD [address] [place] [address] PCP - General Family Medicine 01/20/24 Bijal Antunez NP [address] [place] [address] PCP - [place] [employer] 12/14/23 Bijal Antunez NP [address] [place] [address] Nurse Practitioner Family Medicine 01/20/24 Supervisor Boat Outfitting Relationship Specialty Start Date End Date Charan Quinn MD [address] [place] [address] PCP - General Family Medicine 01/20/24 Bijal Antunez NP [address] [place] [address] PCP - [place] [employer] 12/14/23 Bijal Antunez NP [address] [place] [address] Nurse Practitioner Family Medicine 01/20/24 Supervisor Boat Outfitting Relationship Specialty Start Date End Date Charan Quinn MD [address] [place] [address] PCP - General Family Medicine 01/20/24 Bijal Antunez NP [address] [place] [address] PCP - [place] [employer] 12/14/23 Bijal Antunez NP [address] [place] [address] Nurse Practitioner Family Medicine 01/20/24 Supervisor Boat Outfitting Relationship Specialty Start Date End Date Charan Quinn MD [address] [place] [address] PCP - General Family Medicine 01/20/24 Bijal Antunez NP [address] [place] [address] PCP - [place] [employer] 12/14/23 Bijal Antunez NP [address] [place] [address] Nurse Practitioner Family Medicine 01/20/24 Supervisor Boat Outfitting Relationship Specialty Start Date End Date Charan Quinn MD [address] [place] [address] PCP - General Family Medicine 01/20/24 Bijal Antunez NP [address] [place] [address] PCP - [place] [employer] 12/14/23 Bijal Antunez NP [address] [place] [address] Nurse Practitioner Family Medicine 01/20/24 Supervisor Boat Outfitting Relationship Specialty Start Date End Date Charan Quinn MD [address] [place] [address] PCP - General Family Medicine 01/20/24 Bijal Antunez NP [address] [place] [address] PCP - [place] [employer] 12/14/23 Bijal Antunez NP [address] [place] [address] Nurse Practitioner Family Medicine 01/20/24 Supervisor Boat Outfitting Relationship Specialty Start Date End Date Charan Quinn MD [address] [place] [address] PCP - General Family Medicine 01/20/24 Bijal Antunez NP [address] [place] [address] PCP - [place] [employer] 12/14/23 Bijal Antunez NP [address] [place] [address] Nurse Practitioner Family Medicine 01/20/24 Supervisor Boat Outfitting Relationship Specialty Start Date End Date Charan Quinn MD [address] [place] [address] PCP - General Family Medicine 01/20/24 Bijal Antunez NP [address] [place] [address] PCP - [place] [employer] 12/14/23 Bijal Antunez NP [address] [place] [address] Nurse Practitioner Family Medicine 01/20/24 Supervisor Boat Outfitting Relationship Specialty Start Date End Date Charan Quinn MD [address] [place] [address] PCP - General Family Medicine 01/20/24 Bijal Antunez NP [address] [place] [address] PCP - [place] [employer] 12/14/23 Bijal Antunez NP [address] [place] [address] Nurse Practitioner Family Medicine 01/20/24 Supervisor Boat Outfitting Relationship Specialty Start Date End Date Charan Quinn MD [address] [place] [address] PCP - General Family Medicine 01/20/24 Bijal Antunez NP [address] [place] [address] PCP - [place] [employer] 12/14/23 Bijal Antunez NP [address] [place] [address] Nurse Practitioner Family Medicine 01/20/24 Supervisor Boat Outfitting Relationship Specialty Start Date End Date Charan Quinn MD [address] [place] [address] PCP - General Family Medicine 01/20/24 Bijal Antunez NP [address] [place] [address] PCP - [place] [employer] 12/14/23 Bijal Antunez NP [address] [place] [address] Nurse Practitioner Family Medicine 01/20/24 FOR RECORDS [...] BE BASED ON THE PRIMARY CLINICAL RECORDS. [facility] [employer] [facility]. provides no warranty or guarantee of the accuracy or completeness of information in this document.
== END 2025-03-10 11:47 | disposition home or self-care (01) ==
LOC: US 11:49
PROVIDERS: PCP Nurse Practitioner; Visit Provider Nurse Practitioner
DX: E04.1 Nontoxic single thyroid nodule (principal); E04.2 Nontoxic multinodular goiter
CPT/HCPCS: 76536

== ENCOUNTER 2025-03-13 10:20 | Outpatient (OUT) | payer BC, SELFPAY ==
--- OUTSIDE RECORDS SUMMARY | 2025-03-06 15:40 | XMS_ITS | Encounter Summary ---
Author Organization [facility] Address [address] [place] [address] Care Team Providers Care Classroom Aide Name Role Phone Charan Quinn MD Primary Care Provider [phone] Bijal Antunez ELECTRIC METER REPAIRER HELPER Unavailable [phone] Bijal Antunez NP Unavailable [phone] Reason for Referral * Consultation (Stat) - Authorized Specialty Diagnoses / Procedures Referred By Contac t Referred To Contact General Surgery Diagnoses Postprandial RUQ pain Abnormal gallbladder ultrasound Mass of gallbladder Procedures CA OFFICE/OUTPATIENT [facility] 60 MINUTES Bijal Antunez NP [address] [place] [address] Phone: tel: fax: Regan Enriquez, DO [address] [place] [address] Referral ID Status Reason Start Date Expiration Date Visits Requested Visits Authorized [id number] Authorized Specialty Services Required 03/06/2025 09/02/2025 1 1 Reason for Visit * Reason Comments Hospital Follow-up Encounter Details Date Type Department Care Team (Late st Contact Info) Description 03/06/2025 3:40 PM EDT Office Visit [facility] [address] [place] [phone] Bijal Antunez, SIENNA [address] [place] [address] Postprandial RUQ pain (Primary Dx); Abnormal gallbladder ultrasound; Mass of gallbladder; Class 3 severe obesity due to excess calories without serious comorbidity with body mass index (BMI) of 40.0 to 44.9 in adult ([facility]) Social History Tobacco Use Types Packs/Day Years [...] How often do you attend chur or roman catholic services? 1 to 4 times per year 11/09/2024 Do you belong to any clubs o r organizations such as buddhism groups, unions, fraternal or athletic groups, or [...] Recorded Patient Health Questionnaire-2 Score 0 08/22/2024 [facility] - Occupational Stress Questionnaire Answer Date Recorded [...] place to sleep or slept in a long-term (including now)? No 08/18/2023 Housing Stability Vital Sign Answer Derick e Recorded In the last 12 months, was t here a time when you were not able to pay the mortgage or rent on time? No 11/09/2024 In the past 12 months, how m any times have you moved where you were living? 0 11/09/2024 At any time in the past 12 [facility], were you homeless or living in a long-term (including now)? No 11/09/2024 Comments No Sex and Gender Information Value Date Recorded Sex Assigned at Not on file Legal Sex Female 7:24 PM EDT Gender Identity Not on file Sexual Orientation Not on file documented as of this encounter Last Filed Vital Signs Vital Sign Reading Time Taken Comments Blood Pressure 138/82 03/06/2025 3:49 PM EDT Pulse 75 03/06/2025 3:49 PM EDT Temperature 36.9 C (98.5 F) 03/06/2025 3:49 PM EDT Respiratory Rate 20 03/06/2025 3:49 PM EDT Oxygen Saturation 96% 03/06/2025 3:49 PM EDT Inhaled Oxygen Concentration - - Weight 124 kg (272 lb 6.4 oz) 03/06/2025 3:49 PM EDT Height - - Body Mass Index 42.66 11/15/2024 3:01 PM EST documented in this encounter Patient Instructions * Patient Instructions* Bijal Antunez NP - 03/06/2025 3:40 PM EDT Freq small meals, avoid high fat meals May take stool softener Fluids as tolerated If yellowing of skin, urine looks dk like ice or worsening pain go back to Er documented in this encounter Progress Notes * Bijal Antunez NP - 03/06/2025 4:21 PM EDTAssociated Problem(s): Class 3 severe obesity without serious comorbidity in adult Discussed with patient their BMI (actual, verses recommended). We have also discussed lifestyle modifications: attempts to perform physical activity as chronic conditions allow, also to monitor dietary intake: increasing protein/fruits/veggies and lowering carb intake (unless contraindicated). Limit sodas, juices, and sugary drinks. * Bijal Antunez NP - 03/06/2025 4:21 PM EDTAssociated Problem(s): Mass of gallbladder MRI ordered * Bijal Antunez NP - 03/06/2025 4:21 PM EDTAssociated Problem(s): Abnormal gallbladder ultrasound Ordering MRI * ELISEO MERLOS - 03/06/2025 3:40 PM EDT Pt would like us to try to send her referral out, she is unable to get in until mid March for a consult and is unsure if another gen surgeon or GI could get her in sooner. * Bijal Antunez NP - 03/06/2025 3:40 PM EDT Images from the original note were not included. Arianna Lozada is a 59 y.o. female presents with chief complaint of Hospital Follow-up HPI: Here for recheck: Thursday night into Thursday started with pain again, RUQ into back area, takes breath away Went to [facility] ER, had Abnormal GBUS: had stones, and then also questionable mass, it was recommended to have MRI or the area. Needs open MRI Pt requested general surgeon consult (dr alexander) , this was placed and cannot get in till mid March 29 at 1:00pm, would like somewhere sooner Pain today: 12/22 NV: nausea + Fever: no SUBJECTIVE: MEDICATIONS: Current Outpatient Medications Medication Instructions albuterol HFA 90 mcg/act inhaler 2 puffs, Inhalation, Every 4 hours PRN atorvastatin (LIPITOR) 40 mg, Oral, Nightly carvedilol (COREG) 3.125 mg, Oral, 2 times daily with meals cholecalciferol (VITAMIN D-3) 25 mcg, Oral, Daily, Take 1 tablet by mouth Daily cyclobenzaprine (FLEXERIL) 10 mg, Oral, Nightly PRN Elastic Bandages & Supports (JOBST KNEE HIGH COMPRESSION SM) misc 1 Units, Daily estradiol (ESTRACE) 2 mg, Oral, Daily ferrous sulfate 325 mg, Daily with breakfast fexofenadine (KIKE) 180 mg, Daily hydroCHLOROthiazide (HYDRODIURIL) 25 mg, Oral, 2 times daily PRN HYDROcodone-acetaminophen ([place]) 5-325 MG tablet 1 tablet, Oral, Every 8 hours PRN ibuprofen 800 mg, Oral, 3 times daily PRN levothyroxine (SYNTHROID) 150 mcg, Oral, Daily before breakfast nystatin-triamcinolone (Mycolog II) cream 1 application , Topical, Every 12 hours ondansetron (ZOFRAN) 4 mg, Every 8 hours PRN ALLERGIES: Allergies Allergen Reactions Cisco Inhibitors Angioedema REVIEW OF SYMPTOMS: Review of Systems Constitutional: Negative for appetite change, chills and fever. HENT: Negative for congestion, ear pain and sore throat. Eyes: Negative for pain, discharge, redness and visual disturbance. Respiratory: Negative for cough, shortness of breath and wheezing. Cardiovascular: Negative for chest pain, palpitations and leg swelling. Gastrointestinal: Positive for abdominal pain and nausea. Negative for blood in stool, constipation, diarrhea and vomiting. Genitourinary: Negative for difficulty urinating, [...] Past Medical History: Diagnosis Date Acquired hypothyroidism Allergic rhinitis Anemia iron def,. Asymptomatic microscopic hematuria 08/18/2023 Atopic dermatitis, unspecified type Bilateral lower extremity edema 09/08/2023 Chronic atrophic candidiasis Chronic vulvovaginitis 02/24/2023 Class 3 severe obesity without serious comorbidity in adult 08/20/2023 COVID-19 07/2020 Dyslipidemia Hammertoe of left foot Hypertension Hypertriglyceridemia Hypertrophic scar Iron deficiency anemia secondary to [...] & stroke/DVT. given for mammogram Morbid obesity (CMS-HCC) Muscle spasm LORENZA on CPAP sleep study 04/21/2016: AHI 55, severe sleep apnea, settings CPAP pressure 12 Overweight (BMI 25.0-29.9) Paronychia, toe, left PCOS (polycystic ovarian syndrome) Prediabetes Predislocation syndrome of metatarsophalangeal joint, left Primary hypertension 09/08/2023 Rash of hand Restless leg syndrome Scar contracture Thyroid nodule with hypothyroidism Vision changes Past Surgical History: Procedure Laterality Date CARPAL TUNNEL RELEASE 1992 SECTION, LOW TRANSVERSE 1983 1985 1988 COLONOSCOPY 01/2019 Normal. repeat in 10 years FOOT SURGERY Left 07/2021 plates and screws. 2nd toe screws HYSTERECTOMY 2017 STAH BSO TUBAL LIGATION 1988 family history includes [...] in her sister. OBJECTIVE: Visit Vitals BP 138/82 (BP Location: Left arm, Patient Position: Sitting, BP Cuff Size: Large adult) Pulse 75 Temp 98.5 ??F (Temporal) Resp 20 Wt 272 lb 6.4 oz SpO2 96% BMI 42.66 kg/m?? OB Status Hysterectomy Smoking Status Former BSA 2.42 m?? Physical Exam Vitals and nursing note [...] sounds. Pulmonary: Effort: Pulmonary effort is normal. No respiratory distress. Breath sounds: Normal breath sounds. No wheezing. Abdominal: General: Bowel sounds are normal. There is no distension. Palpations: Abdomen is soft. There is no mass. Tenderness: There is no abdominal tenderness (RUQ pain). Musculoskeletal: General: Normal range of motion. Cervical back: Normal range of motion and neck supple. Right lower leg: No edema. Left lower leg: No edema. Skin: General: Skin is warm and dry. [...] file. Problem List Items Addressed This Visit Postprandial RUQ pain - Primary Hx stones on GBUS, wanted to observe, was in [facility] ER on 03/01/25 Had another US, did show ??mass near gallbladder, recommended MRI abd This was ordered Relevant Medications ondansetron (Zofran) 4 MG tablet Other Relevant Orders Ambulatory referral to General Surgery Abnormal gallbladder ultrasound Relevant Medications ondansetron (Zofran) 4 MG tablet Other Relevant Orders Ambulatory referral to General Surgery Mass of gallbladder Relevant Orders Ambulatory referral to General Surgery * Bijal Antunez NP - 03/06/2025 7:40 AM EDTAssociated Problem(s): Postprandial RUQ pain Hx stones on GBUS, wanted to observe, was in [facility] ER on 03/01/25 Had another US, did show ??mass near gallbladder, recommended MRI abd This was ordered documented in this encounter Plan of Treatment Upcoming Encounters Date Type Department Care Team (Late st Contact Info) Description 05/18/2025 8:40 AM EDT Office Visit [facility] [address] [place] [address] Bijal Antunez NP [address] [place] [phone] 02/22/2026 11:10 AM EDT Office Visit [facility] [address] [place] [address] Rose Taylor PA [address] [place] [address] Scheduled Referrals Name Type Priority Associated Diagnoses Orde r Schedule Ambulatory referral to General Surgery Outpatient Referral STAT Postprandial RUQ pain Abnormal gallbladder ultrasound Mass of gallbladder Expected: 03/06/2025 (Approximate), Expires: 09/05/2025 documented as of this encounter Visit Diagnoses Diagnosis Postprandial RUQ pain- Primary Abnormal gallbladder ultrasound Mass of gallbladder Class 3 severe obesity due to excess calories without serious comorbidity with body mass index (BMI) of 40.0 to 44.9 in adult (CMS-HCC) documented in this encounter Care Teams Classroom Aide Relationship Specialty Start Date End Date Charan Quinn MD [address] [place] [phone] PCP - General Family Medicine 01/20/24 Bijal Antunez NP [address] [place] [phone] PCP - [facility] 12/14/23 Bijal Antunez NP [address] [place] [address] Nurse Practitioner Family Medicine 01/20/24 documented as of this encounter
--- OUTSIDE RECORDS SUMMARY | 2025-03-13 10:30 | XMS_ITS | Encounter Summary ---
Author Organization [facility] Address [address] [place] [address] Care Team Providers Care Podiatric Surgeon Name Role Phone Charan Quinn MD Primary Care Provider [phone] Bijal Antunez TYING MACHINE OPERATOR Unavailable [phone] Bijal Antunez TYING MACHINE OPERATOR Unavailable [phone] Reason for Visit * Reason Comments Med Refill Encounter Details Date Type Department Care Team (Late st Contact Info) Description 04/27/2024 Refill [facility] [address] [place] [address] Bijal Antunez, TYING MACHINE OPERATOR [address] [place] [address] Class 3 severe obesity due to excess calories without serious comorbidity with body mass index (BMI) of 45.0 to 49.9 in adult ([facility]) Social History Tobacco Use Types Packs/Day Years [...] often do you attend chur ch or caodaism services? Never 08/18/2023 Do you belong to any clubs o r organizations such as voodoo groups, unions, fraternal or athletic groups, or [...] Recorded Patient Health Questionnaire-2 Score 0 01/20/2024 [facility] - Occupational [...] to sleep or slept in a senior care (including now)? No 08/18/2023 Comments No Sex [...] Office Visit [facility] [address] [place] [address] Bijal Antunez NP [address] [place] [address] 02/22/2026 11:10 AM EDT Office Visit [facility] [address] [place] [address] Rose Taylor PA [address] [place] [address] documented as of this encounter Visit Diagnoses Diagnosis Class 3 severe obesity due to excess calories without serious comorbidity with body mass index (BMI) of 45.0 to 49.9 in adult ([facility]) documented in this encounter Care Teams Podiatric Surgeon Relationship Specialty Start Date End Date Charan Quinn MD [address] [place] [address] PCP - General Family Medicine 01/20/24 Bijal Antunez NP [address] [place] [address] PCP - [facility] 12/14/23 Bijal Antunez NP [address] [place] [address] Nurse Practitioner Family Medicine 01/20/24 documented as of this encounter
--- OUTSIDE RECORDS SUMMARY | 2025-03-13 10:30 | XMS_ITS | Encounter Summary ---
Author Organization [facility] Address [address] [place] [address] Care Team Providers Care Production Welding Supervisor Name Role Phone Charan Quinn MD Primary Care Provider [phone] Charan Quinn MD Primary Care Provider [phone] Bijal Antunez SUMMER SESSIONS DIRECTOR Unavailable [phone] Bijal Antunez SUMMER SESSIONS DIRECTOR Unavailable [phone] Encounter Details Date Type Department Care Team (Late st Contact Info) Description 04/15/2023 Orders Only [facility] [address] [place] [address] Anitha Mcdonald RN [address] [place], [place] [address] Acquired hypothyroidism (Primary Dx) Social History Tobacco [...] [facility] [address] [place] [address] Bijal Antunez, SIENNA [address] [place] [address] 02/22/2026 11:10 AM EDT Office Visit [facility] [address] [place] [address] Rose Taylor PA [address] [place] [address] Scheduled Orders Name Type Priority Associated Diagnoses Orde r Schedule TSH Lab Routine Acquired hypothyroidism Expected: 04/15/2023 (Approximate), Expires: 04/15/2024 documented as of this encounter Visit Diagnoses Diagnosis Acquired hypothyroidism- Primary Unspecified hypothyroidism documented in this encounter Care Teams Production Welding Supervisor Relationship Specialty Start Date End Date Charan Quinn MD PCP - General Cardiology 09/14/22 01/19/24 Charan Quinn MD [address] [place] [address] PCP - General Family Medicine 01/20/24 Bijal Antunez NP [address] [place] [address] PCP - [place] [employer] 12/14/23 Bijal Antunez NP [address] [place] [address] Nurse Practitioner Family Medicine 01/20/24 documented as of this encounter
--- OUTSIDE RECORDS SUMMARY | 2025-03-13 10:30 | XMS_ITS | Clinical Summary ---
Author Organization Aldair Rodriguez [facility]elli [facility] Address [address] [place] [address] Care Team Providers Care Science Professor Name Role Phone Unavailable Primary Care Provider Unavailabl e Encounters Date Type Department Care Team Description 03/08/2025 Transcribe Orders [facility] [address] [place] [address] [id number] Bijal Antunez, RADIOTELEGRAPHIST - WASTE BALER Mass of gallbladder (Primary Dx) from Last 3 Months Social History Tobacco Use Types Packs/Day Years Used Date Smoking Tobacco: Never Assessed Comments Unknown Sex and Gender Information Value Date Recorded Sex Assigned at Not on file Legal Sex Female 4:31 PM EST Gender Identity Not on file Sexual Orientation Not on file Plan of Treatment Upcoming Encounters Date Type Department Care Team (Late st Contact Info) Description 03/28/2025 11:30 AM EDT Appointment [address] [address] media sched w pt 03/29/2025 1:00 PM EDT Office Visit [facility] GENERAL SURGERY Part of [address] [place] [address] Eri Atkinson I, [address] [phone] Gallbladder Health Maintenance Due Date Last Done Comments Depression Screen 1977 HIV screen 1980 Hepatitis C screen 1983 DTaP/Tdap/Td vaccine (1 - Tdap) 1984 Hepatitis B vaccine (1 of 3 - 19+ 3-dose series) 1984 Pap smear 1986 Cervical cancer screen 1995 HPV (without or with Pap) 1995 Breast cancer screen 2005 Lipids 2005 Colonoscopy 2010 Colorectal Cancer Screen 2010 FIT/FOBT: Average risk 2010 Fecal-DNA (Cologuard): Average risk 2010 Sigmoidoscopy/CT colonography 2010 Pneumococcal 50+ years Vacci ne (1 of 1 - PCV) 2015 Shingles vaccine (1 of 2) 2015 COVID-19 Vaccine (1 - 2023-2 5 season) 2024 Flu vaccine (Season Ended) 2025 Hepatitis A vaccine Aged Out No longe r eligible based on patient's age to complete this topic Hib vaccine Aged Out No longer eligi ble based on patient's age to complete this topic Meningococcal (ACWY) vaccine Aged Out No longer eligible based on patient's age to complete this topic Meningococcal B vaccine Aged Out No l onger eligible based on patient's age to complete this topic Polio vaccine Aged Out No longer elig ible based on patient's age to complete this topic Insurance [address] OCCUPATIONAL HEALTH
--- OUTSIDE RECORDS SUMMARY | 2025-03-13 10:30 | XMS_ITS | Encounter Summary ---
Author Organization [facility] Address [address] [place] [address] Care Team Providers Care Operations Professional Name Role Phone Charan Quinn MD Primary Care Provider [phone] Bijal Antunez ELEVATOR INSTALLER Unavailable [phone] Bijal Antunez ELEVATOR INSTALLER Unavailable [phone] Encounter Details Date Type Department Care Team (Late st Contact Info) Description 03/02/2025 Telephone [facility] [address] [place] [address] Bijal Antunez ELEVATOR INSTALLER [address] [place] [address] Social History Tobacco Use Types Packs/Day Years [...] often do you attend chur ch or shinto services? 1 to 4 times per year 11/09/2024 Do you belong to any clubs o r organizations such as mosque groups, unions, fraternal or athletic groups, or [...] Recorded Patient Health Questionnaire-2 Score 0 08/22/2024 [facility] of Occupat ional Health - Occupational Stress [...] in a jail (including now)? No 08/18/2023 Housing Stability Vital [...] were you homeless or living in a jail (including now)? No 11/09/2024 Comments No Sex and Gender Information Value Date Recorded Sex Assigned at Not on file Legal Sex Female 7:24 PM EDT Gender Identity Not on file Sexual Orientation Not on file documented as of this encounter Miscellaneous Notes * Telephone Encounter - ELISEO MERLOS - 03/02/2025 2:43 PM EDT Text Net Software Developer Eliseo, it is Candace from scheduling calling in regards to patient Arianna Lozada date of [id number]. Looks like she was seen in the ER yesterday and they ended up discharging her with an MRIorder from what was seen on her ultrasound. So the MRI order that was actually written is not a Correct. It needs to be an MRI abdomen with and without. So I had called the e r and then the ER director gave me a call back and said it looked like they were ordering it. On behalf of Bijal since Bijal is her primary care. So they were wondering if Bijal would just go ahead and just do the order Insteadof getting fixed through the emergency room, so that is what I was calling for to see if Bijal wouldgo ahead and order the MRI abdomen, but it needs to be with and without contrast, and we need to check it for pre cert so if you could send notes as well, if Bijal will do that, if you have Any questions, just give me a call back. My extension is [phone]. Thank you. documented in this encounter Plan of Treatment Upcoming Encounters Date Type Department Care Team (Late st Contact Info) Description 05/18/2025 8:40 AM EDT Office Visit [facility] [address] [place] [address] Bijal Antunez NP [address] [place] [address] 02/22/2026 11:10 AM EDT Office Visit [facility] [address] [place] [address] Rose Taylor PA [address] [place] [address] documented as of this encounter Visit Diagnoses Not on filedocumented in this encounter Care Teams Operations Professional Relationship Specialty Start Date End Date Charan Quinn MD [address] [place] [address] PCP - General Family Medicine 01/20/24 Bijal Antunez NP [address] [place] [address] PCP - [facility] 12/14/23 Bijal Antunez NP [address] [place] [address] Nurse Practitioner Family Medicine 01/20/24 documented as of this encounter
--- OUTSIDE RECORDS SUMMARY | 2025-03-13 10:30 | XMS_ITS | Encounter Summary ---
Author Organization [facility] Address [address] [place] [address] Care Team Providers Care Lot Technician Name Role Phone Charan Quinn MD Primary Care Provider [phone] Charan Quinn MD Primary Care Provider [phone] Bijal Antunez BASEBALL GLOVE SHAPER Unavailable [phone] Bijal Antunez BASEBALL GLOVE SHAPER Unavailable [phone] Encounter Details Date Type Department Care Team (Late st Contact Info) Description 08/22/2023 Abstract [facility] [address] [place] [address] Bijal Antunez BASEBALL GLOVE SHAPER [address] [place] [address] Social History Tobacco Use Types Packs/Day Years [...] often do you attend chur ch or sabianism services? Never 08/18/2023 Do you belong to [...] Recorded Patient Health Questionnaire-2 Score 0 08/17/2023 [facility] of Occupat ional Health - Occupational Stress [...] place to sleep or slept in a alf (including now)? No 08/18/2023 Comments No Sex [...] Visit [facility] [address] [place] [address] Bijal Antunez NP [address] [place] [address] 02/22/2026 11:10 AM EDT Office Visit [facility] [address] [place] [address] Rose Taylor PA [address] [place] [address] documented as of this encounter Visit Diagnoses Not on filedocumented in this encounter Care Teams Lot Technician Relationship Specialty Start Date End Date Charan Quinn MD PCP - General Cardiology 09/14/22 01/19/24 Charan Quinn MD [address] [place] [address] PCP - General Family Medicine 01/20/24 Bijal Antunez NP [address] [place] [address] PCP - [place] [employer] 12/14/23 Bijal Antunez NP [address] [place] [address] Nurse Practitioner Family Medicine 01/20/24 documented as of this encounter
--- OUTSIDE RECORDS SUMMARY | 2025-03-13 10:30 | XMS_ITS | Encounter Summary ---
Author Organization [facility] Address [address] [facility] [place] [address] Care Team Providers Care Recreation Director Name Role Phone Charan Quinn MD Primary Care Provider [phone] Charan Quinn MD Primary Care Provider [phone] Bijal Antunez RECONNAISSANCE MAN Unavailable [phone] Bijal Antunez RECONNAISSANCE MAN Unavailable [phone] Encounter Details Date Type Department Care Team (Late st Contact Info) Description 08/19/2023 Orders Only [facility] [address] [facility] [address] [place] [phone] Bijal Antunez, RECONNAISSANCE MAN [address] [place] [address] Social History Tobacco Use Types [...] How often do you attend chur or buddhism services? Never 08/18/2023 Do you belong to any clubs o r organizations such as muslim groups, unions, fraternal or athletic groups, or [...] Recorded Patient Health Questionnaire-2 Score 0 08/17/2023 [facility] [place] of Occupat ional Health - Occupational Stress [...] Visit [facility] [address] [place] [address] Bijal Antunez NP [address] [place] [address] 02/22/2026 11:10 AM EDT Office Visit [facility] [address] [place] [address] Rose Taylor PA [address] [place] [address] documented as of this encounter Procedures Procedure Name Priority Date/Time Associated Diagnosis Comments MAMM SCREENING W CAD Routine 10/28/2022 8:57 AM EST documented in this encounter Results * MAMM SCREENING W CAD (10/28/2022 8:57 AM EST) Anatomical Region Laterality Modality Radiographic Yancy ging us Bijal Antunez RECONNAISSANCE MAN IMG XR PROCEDURES Final Result documented in this encounter Visit Diagnoses Not on filedocumented in this encounter Care Teams Recreation Director Relationship Specialty Start Date End Date Charan Quinn MD PCP - General Cardiology 09/14/22 01/19/24 Charan Quinn MD [address] [place] [address] PCP - General Family Medicine 01/20/24 Bijal Antunez NP [address] [place] [address] PCP - [place] [employer] 12/14/23 Bijal Antunez NP [address] [place] [address] Nurse Practitioner Family Medicine 01/20/24 documented as of this encounter
--- OUTSIDE RECORDS SUMMARY | 2025-03-13 10:30 | XMS_ITS | Encounter Summary ---
Author Organization [facility] Address [address] [place] [address] Care Team Providers Care Abalone Fisherman Name Role Phone Charan Quinn MD Primary Care Provider [phone] Bijal Antunez ERP PROJECT MANAGER Unavailable [phone] Bijal Antunez ERP PROJECT MANAGER Unavailable [phone] Encounter Details Date Type Department Care Team (Late st Contact Info) Description 03/02/2025 Abstract [facility] [address] [place] [address] Bijal Antunez ERP PROJECT MANAGER [address] [place] [address] Social History Tobacco Use Types Packs/Day Years [...] often do you attend chur ch or temple services? 1 to 4 times per year 11/09/2024 Do you belong to any clubs o r organizations such as caodaism groups, unions, fraternal or athletic groups, or [...] Recorded Patient Health Questionnaire-2 Score 0 08/22/2024 [facility] [place] of Occupat ional Health - Occupational Stress [...] in a residential (including now)? No 08/18/2023 Housing Stability Vital Sign Answer Derick e Recorded In the last 12 months, was t here a time when you were not able to pay the mortgage or rent on time? No 11/09/2024 In the past 12 months, how m any times have you moved where you were living? 0 11/09/2024 At any time in the past 12 m [facility], were you homeless or living in a residential (including now)? No 11/09/2024 Comments No Sex [...] [facility] [address] [place] [address] Bijal Antunez NP [address] [place] [address] 02/22/2026 11:10 AM EDT Office Visit [facility] [address] [place] [address] Rose Taylor PA [address] [place] [address] documented as of this encounter Visit Diagnoses Not on filedocumented in this encounter Care Teams Abalone Fisherman Relationship Specialty Start Date End Date Charan Quinn MD [address] [place] [address] PCP - General Family Medicine 01/20/24 Bijal Antunez NP [address] [place] [address] PCP - [facility] 12/14/23 Bijal Antunez NP [address] [place] [address] Nurse Practitioner Family Medicine 01/20/24 documented as of this encounter
--- OUTSIDE RECORDS SUMMARY | 2025-03-13 10:30 | XMS_ITS | Encounter Summary ---
Author Organization [facility] Address [address] [place] [address] Care Team Providers Care Supervisor Cytology Name Role Phone Charan Quinn MD Primary Care Provider [phone] Bijal Antunez FINAL CIGAR AND BOX EXAMINER Unavailable [phone] Bijal Antunez FINAL CIGAR AND BOX EXAMINER Unavailable [phone] Reason for Visit * Reason Comments Med Refill Encounter Details Date Type Department Care Team (Late st Contact Info) Description 08/19/2024 Refill [facility] [address] [place] [address] Bijal Antunez, FINAL CIGAR AND BOX EXAMINER [address] [place] [address] Essential (primary) hypertension ; Bilateral [...] How often do you attend chur or sikh services? Never 08/18/2023 Do you belong to any clubs o r organizations such as methodist groups, unions, fraternal or athletic groups, or [...] Patient Health Questionnaire-2 Score 0 08/22/2024 [facility] [place] of Occupat ional Health - Occupational Stress [...] Not at all 08/22/2024 10:12 AM Jackie Hutn M A Patient Health Questionnaire -2 Score 0 08/22/2024 10:12 AM Jackie Hunt M A documented as of this encounter Plan of Treatment Upcoming Encounters Date Type Department Care Team (Late st Contact Info) Description 05/18/2025 8:40 AM EDT Office Visit [facility] [address] [place] [address] Bijal Antunez NP [address] [place] [address] 02/22/2026 11:10 AM EDT Office Visit [facility] [address] [place] [address] Rose Taylor PA [address] [place] [address] documented as of this encounter Visit Diagnoses Diagnosis Essential (primary) hypertension Unspecified essential hypertension Bilateral lower extremity edema documented in this encounter Care Teams Supervisor Cytology Relationship Specialty Start Date End Date Charan Quinn MD [address] [place] [address] PCP - General Family Medicine 01/20/24 Bijal Antunez NP [address] [place] [address] PCP - [place] [employer] 12/14/23 Bijal Antunez NP [address] [place] [address] Nurse Practitioner Family Medicine 01/20/24 documented as of this encounter
--- OUTSIDE RECORDS SUMMARY | 2025-03-13 10:30 | XMS_ITS | Encounter Summary ---
Author Organization [facility] Address [address] [place] [address] Care Team Providers Care Linseed Oil Order Filler Name Role Phone Charan Quinn MD Primary Care Provider [phone] Bijal Antunez [employer] Unavailable [phone] Bijal Antunez NP Unavailable [phone] Reason for Referral * Consultation (Routine) - Authorized Specialty Diagnoses / Procedures Referred By Contac t Referred To Contact General Surgery Diagnoses Postprandial RUQ pain Abnormal gallbladder ultrasound Procedures MD OFFICE/OUTPATIENT [facility] 60 MINUTES Bijal Antunez NP [address] [place] [address] Phone: tel: fax: Eri Atkinson MD [address] [place] [address] Phone: tel: fax: Referral ID Status Reason Start Date Expiration Date Visits Requested Visits Authorized [id number] Authorized Specialty Services Required 03/02/2025 08/29/2025 1 1 Encounter Details Date Type Department Care Team (Late st Contact Info) Description 03/02/2025 Orders Only [facility] [address] [place] [address] Bijal Antunez, SIENNA [address] [place] [address] Postprandial RUQ pain (Primary Dx); Abnormal gallbladder ultrasound Social History Tobacco Use Types Packs/Day Years [...] often do you attend chur ch or restorationism services? 1 to 4 times per year [...] Recorded Patient Health Questionnaire-2 Score 0 08/22/2024 [facility] of Occupat ional Health - Occupational [...] place to sleep or slept in a half-way (including now)? No 08/18/2023 Housing Stability Vital Sign Answer Derick e Recorded In the last 12 months, was t here a time when you were not able to pay the mortgage or rent on time? No 11/09/2024 In the past 12 months, how m any times have you moved where you were living? 0 11/09/2024 At any time in the past 12 m [facility], were you homeless or living in a half-way (including now)? No 11/09/2024 Comments No Sex [...] Office Visit [facility] [address] [place] [address] Bijal Antunez NP [address] [place] [address] 02/22/2026 11:10 AM EDT Office Visit [facility] [address] [place] [address] Rose Taylor PA [address] [place] [address] Scheduled Referrals Name Type Priority Associated Diagnoses Orde r Schedule Ambulatory referral to General Surgery Outpatient Referral Routine Postprandial RUQ pain Abnormal gallbladder ultrasound Expected: 03/02/2025 (Approximate), Expires: 09/01/2025 documented as of this encounter Visit Diagnoses Diagnosis Postprandial RUQ pain- Primary Abnormal gallbladder ultrasound documented in this encounter Care Teams Linseed Oil Order Filler Relationship Specialty Start Date End Date Charan Quinn MD [address] [place] [address] PCP - General Family Medicine 01/20/24 Bijal Antunez NP [address] [place] [address] PCP - [facility] 12/14/23 Bijal Antunez NP [address] [place] [address] Nurse Practitioner Family Medicine 01/20/24 documented as of this encounter
--- OUTSIDE RECORDS SUMMARY | 2025-03-13 10:30 | XMS_ITS | Encounter Summary ---
Author Organization [facility] Address [address] [place] [address] Care Team Providers Care Claims Director Name Role Phone Charan Quinn MD Primary Care Provider [phone] Charan Quinn MD Primary Care Provider [phone] Bijal Antunez CUSTOMS AND BORDER PROTECTION INSPECTOR Unavailable [phone] Bijal Antunez CUSTOMS AND BORDER PROTECTION INSPECTOR Unavailable [phone] Encounter Details Date Type Department Care Team (Late st Contact Info) Description 12/02/2023 Orders Only [facility] [address] [place] [address] Bijal Antunez CUSTOMS AND BORDER PROTECTION INSPECTOR [address] [place] [address] Social History Tobacco Use Types [...] do you attend chur or taoist services? Never 08/18/2023 Do you belong to [...] Recorded Patient Health Questionnaire-2 Score 0 08/17/2023 [facility] [place] of Occupat ional Health - Occupational Stress [...] place to sleep or slept in a chcf (including now)? No 08/18/2023 Comments No Sex [...] [facility] [address] [place] [address] Bijal Antunez NP [address] [place] [address] 02/22/2026 11:10 AM EDT Office Visit [facility] [address] [place] [address] Rose Taylor PA [address] [place] [address] documented as of this encounter Procedures Procedure Name Priority Date/Time Associated Diagnosis Comments MAMM SCREEN CAD BILAT10.00 %28 Routine 12/01/2023 11:47 AM EDT documented in this encounter Results * MAMM SCREEN CAD BILAT10.00 %28 (12/01/2023 11:47 AM EDT) Anatomical Region Laterality Modality Radiographic Yancy ging us Bijal Antunez CUSTOMS AND BORDER PROTECTION INSPECTOR IMG XR PROCEDURES Final Result documented in this encounter Visit Diagnoses Not on filedocumented in this encounter Care Teams Claims Director Relationship Specialty Start Date End Date Charan Quinn MD PCP - General Cardiology 09/14/22 01/19/24 Charan Quinn MD [address] [place] [address] PCP - General Family Medicine 01/20/24 Bijal Antunez NP [address] [place] [address] PCP - [place] [employer] 12/14/23 Bijal Antunez NP [address] [place] [address] Nurse Practitioner Family Medicine 01/20/24 documented as of this encounter
--- OUTSIDE RECORDS SUMMARY | 2025-03-13 10:30 | XMS_ITS | Encounter Summary ---
Author Organization [facility] Address [address] [place] [address] Care Team Providers Care Carbon Printer Name Role Phone Unavailable Primary Care Provider Unavailabl e Reason for Referral * Imaging (Routine) - Open Specialty Diagnoses / Procedures Referred By Contac t Referred To Contact Radiology Diagnoses Mass of gallbladder Procedures MRI ABDOMEN W WO CONTRAST Bijal Antunez APRN - PHARMACY ANALYST [address] [place] [address] Phone: tel: fax: Referral ID Status Reason Start Date Expiration Date Visits Re quested Visits Authorized [id number] Open 03/08/2025 03/08/2026 1 1 Encounter Details Date Type Department Care Team (Late st Contact Info) Description 03/08/2025 Transcribe Orders [facility] [address] [place] [address] Bijal Antunez TELECOM BILLING ANALYST - PHARMACY ANALYST [address] [place] [address] Mass of gallbladder (Primary Dx) Social History Tobacco Use Types [...] Info) Description 03/28/2025 11:30 AM EDT Appointment [facility] MRI [address] [place] [address] media sched w pt 03/29/2025 1:00 PM EDT Office Visit [facility] GENERAL SURGERY Part of [address] [place] [address] Eri Atkinson DO [address] [facility] [address] [place] [address] Gallbladder Scheduled Orders Name Type Priority Associated Diagnoses Orde r Schedule MRI ABDOMEN W WO CONTRAST Imaging Routine Mass of gallbladder Expected: 03/08/2025, Expires: 03/08/2026 documented as of this encounter Visit Diagnoses Diagnosis Mass of gallbladder- Primary Other specified disorder of gallbladder documented in this encounter
--- OUTSIDE RECORDS SUMMARY | 2025-03-13 10:30 | XMS_ITS | Encounter Summary ---
Author Organization [facility] Address [address] [place] [address] Care Team Providers Care Activities Assistant Name Role Phone Charan Quinn MD Primary Care Provider [phone] Bijal Antunez ORE GRADER Unavailable [phone] Bijal Antunez ORE GRADER Unavailable [phone] Reason for Visit * Reason Comments Med Refill Encounter Details Date Type Department Care Team (Late st Contact Info) Description 09/17/2024 Refill [facility] [address] [place] [address] Bijal Antunez, ORE GRADER [address] [place] [address] Class 3 severe obesity due to excess calories without serious comorbidity with body mass index (BMI) of 45.0 to 49.9 in adult ([facility]) Social History Tobacco Use Types Packs/Day Years [...] often do you attend chur ch or pentecostalism services? Never 08/18/2023 Do you belong to any clubs o r organizations such as faith groups, unions, fraternal or athletic groups, or [...] Recorded Patient Health Questionnaire-2 Score 0 08/22/2024 [facility] Occupat ional [facility] - Occupational [...] a group home (including now)? No 08/18/2023 Comments No Sex [...] [facility] FM [address] [place] [address] Bijal Antunez NP [address] [place] [address] 02/22/2026 11:10 AM EDT Office Visit [facility] DER[facility] [address] [place] [address] Rose Taylor PA [address] [place] [address] documented as of this encounter Visit Diagnoses Diagnosis Class 3 severe obesity due to excess calories without serious comorbidity with body mass index (BMI) of 45.0 to 49.9 in adult ([facility]) documented in this encounter Care Teams Activities Assistant Relationship Specialty Start Date End Date Charan Quinn MD [address] [place] [address] PCP - General Family Medicine 01/20/24 Bijal Antunez NP [address] [place] [address] PCP - [facility] 12/14/23 Bijal Antunez NP [address] [place] [address] Nurse Practitioner Family Medicine 01/20/24 documented as of this encounter
--- OUTSIDE RECORDS SUMMARY | 2025-03-13 10:30 | XMS_ITS | Encounter Summary ---
Author Organization [facility] Address [address] [place] [address] Care Team Providers Care Teacher Name Role Phone Charan Quinn MD Primary Care Provider [phone] Bijal Antunez RAW SILK GRADER Unavailable [phone] Bijal Antunez RAW SILK GRADER Unavailable [phone] Encounter Details Date Type Department Care Team (Late st Contact Info) Description 03/11/2024 Orders Only [facility] CI ENT [address] [facility] [address] [place] [address] Kamilah Martinez MD [address] [facility] [address] [place], [place] [id number] Social History Tobacco Use Types Packs/Day Years [...] How often do you attend chur or rastafari services? Never 08/18/2023 Do you belong to [...] Recorded Patient Health Questionnaire-2 Score 0 01/20/2024 [facility] of Occupat ional Health - Occupational [...] in a fci (including now)? No 08/18/2023 Comments No Sex [...] Office Visit [facility] [address] [place] [address] Bijal Antunez NP [address] [place] [address] 02/22/2026 11:10 AM EDT Office Visit [facility] DERM [address] [place] [address] Rose Taylor PA [address] [place] [address] documented as of this encounter Procedures Procedure Name Priority Date/Time Associated Diagnosis Comments SCANNED LABS Routine 03/10/2024 8:45 AM EDT documented in this encounter Results * SCANNED LABS (03/10/2024 8:45 AM EDT) us Kamilah Martinez MD LAB CHG PERFORMABLES Final Re sult documented in this encounter Visit Diagnoses Not on filedocumented in this encounter Care Teams Teacher Relationship Specialty Start Date End Date Charan Quinn MD [address] [place] [address] PCP - General Family Medicine 01/20/24 Bijal Antunez NP [address] [place] [address] PCP - [facility] 12/14/23 Bijal Antunez NP [address] [place] [address] Nurse Practitioner Family Medicine 01/20/24 documented as of this encounter
--- OUTSIDE RECORDS SUMMARY | 2025-03-13 10:30 | XMS_ITS | Encounter Summary ---
Author Organization [facility] Address [address] [place] [address] Care Team Providers Care Viscose Department Worker Name Role Phone Charan Quinn MD Primary Care Provider [phone] Charan Quinn MD Primary Care Provider [phone] Bijal Antunez FURNITURE ARRANGER Unavailable [phone] Bijal Antunez FURNITURE ARRANGER Unavailable [phone] Encounter Details Date Type Department Care Team (Late st Contact Info) Description 12/02/2023 Clinisync Result Encounter [facility] External Department Unsolicited Bijal Antunez, FURNITURE ARRANGER [address] [place] [address] Social History Tobacco Use Types Packs/Day Years [...] How often do you attend chur or yazidi services? Never 08/18/2023 Do you belong to [...] Recorded Patient Health Questionnaire-2 Score 0 08/17/2023 [facility] of Occupat ional Health - Occupational Stress [...] Visit [facility] LOG[facility] GALVEZ [address] [place] [address] Bijal Antunez NP [address] [place] [address] 02/22/2026 11:10 AM EDT Office Visit [facility] BORIS BARRY [address] [place] [address] Rose Taylor PA [address] [...] EDT Narrative 12/02/2023 9:58 [place] [address] Mammography Report Signed Patient: WAYNE LOZADA MR#: [id number] : 1965 Acct:[id number] Age/Sex: 58 / F ADM Date: 12/01/23 Loc: MAMMO Attending Dr: Bijal Antunez NP Ordering Physician: Bijal Antunez NP Results: Date of Service: 12/01/23 Follow Up: Procedure(s): MM tomosynthesis screening BI Accession Number(s): [id number] cc: Bijal Antunez NP Patient Name: WAYNE LOZADA MR#: [id number] : 1965 Exam Date: 12/01/2023 Ordering Doctor: [...] myeloma cancer at age 74. LOCATION: [facility] BREAST COMPOSITION: Heterogeneously dense,which may obscure [...] Signed By: 12/02/23 0958 DD/ 0957 TD/TT: Trolley Car Mechanic: Procedure Note Radiology, Radiologist, MD - 12/02/2023 [place] [address] Mammography Report Signed Patient: WAYNE LOZADA KMR#: [id number] : 1965Acct:[id number] Age/Sex: 58 / FADM Date: 12/01/23 Loc: MAMMO Attending Dr: Bijal Antunez NP Ordering Physician: Bijal Antunez NPResults: Date of Service: 12/01/23Follow Up: Procedure(s): MM tomosynthesis screening BI Accession Number(s): [id number] cc: Bijla Antunez NP Patient Name: WAYNE LOZADA MR#: [id number] : 1965 Exam Date: 12/01/2023 Ordering Doctor: [...] myeloma cancer at age 74. LOCATION: [facility] BREAST COMPOSITION: Heterogeneously dense,which may obscure [...] Deangelo Fontaine M.D. Signed By:12/02/2358 DD/ TD/TT: Trolley Car Mechanic: us Bijal Antunez NP [facility] Final Result documented in this encounter Visit Diagnoses Not on filedocumented in this encounter Care Teams Viscose Department Worker Relationship Specialty Start Date End Date Charan Quinn MD PCP - General Cardiology 09/14/22 01/19/24 Charan Quinn MD [address] [place] [address] PCP - General Family Medicine 01/20/24 Bijal Antunez NP [address] [place] [address] PCP - [facility] 12/14/23 Bijal Antunez NP [address] [place] [address] Nurse Practitioner Family Medicine 01/20/24 documented as of this encounter
--- OUTSIDE RECORDS SUMMARY | 2025-03-13 10:30 | XMS_ITS | Encounter Summary ---
Author Organization [facility] Address [address] [place] [address] Care Team Providers Care Windows Desktop Support Name Role Phone Charan Quinn MD Primary Care Provider [phone] Bijal Antunez LAYOUT TECHNICIAN Unavailable [phone] Bijal Antunez LAYOUT TECHNICIAN Unavailable [phone] Encounter Details Date Type Department Care Team (Late st Contact Info) Description 03/02/2025 Orders Only [facility] FM [address] [place] [address] Jen Rodgers PA [address] [place] [address] [place] [address] Social History Tobacco Use Types Packs/Day Years [...] often do you attend chur ch or christian services? 1 to 4 times per year [...] Recorded Patient Health Questionnaire-2 Score 0 08/22/2024 [facility] of Occupat ional Health - Occupational [...] in a chcf (including now)? No 08/18/2023 Housing Stability Vital Sign Answer Derick e Recorded In the last 12 months, was t here a time when you were not able to pay the mortgage or rent on time? No 11/09/2024 In the past 12 months, how m any times have you moved where you were living? 0 11/09/2024 At any time in the past 12 m [facility], were you homeless or living in a chcf (including now)? No 11/09/2024 Comments No Sex [...] CWM FM [address] [place] [address] Bijal Antunez NP [address] [place] [address] 02/22/2026 11:10 AM EDT Office Visit [facility] DERM [address] [place] [address] Rose Taylor PA [address] [place] [address] documented as of this encounter Procedures Procedure Name Priority Date/Time Associated Diagnosis Comments US RUQ ABDOMEN ANY ORGAN ANY QUADRANT 02389 Routine 03/02/2025 9:05 AM EDT documented in this encounter Results * US RUQ ABDOMEN ANY ORGAN ANY QUADRANT 62279 (03/02/2025 9:05 AM EDT) Anatomical Region Laterality Modality Radiographic Yancy ging us Jen ROSADO IMG XR PROCEDURES Final Result documented in this encounter Visit Diagnoses Not on filedocumented in this encounter Care Teams Windows Desktop Support Relationship Specialty Start Date End Date Charan Quinn MD [address] [place] [address] PCP - General Family Medicine 01/20/24 Bijal Antunez NP [address] [place] [address] PCP - [facility] 12/14/23 Bijal Antunez NP [address] [place] [address] Nurse Practitioner Family Medicine 01/20/24 documented as of this encounter
--- OUTSIDE RECORDS SUMMARY | 2025-03-13 10:30 | XMS_ITS | Encounter Summary ---
Author Organization [facility] Address [address] [place] [address] Care Team Providers Care Diesel Trailer Mechanic Name Role Phone Charan Quinn MD Primary Care Provider [phone] Bijal Antunez RISK PREVENTION ENGINEER Unavailable [phone] Bijal Antunez RISK PREVENTION ENGINEER Unavailable [phone] Encounter Details Date Type Department Care Team (Late st Contact Info) Description 01/25/2024 Orders Only [facility] ENT [address] [place] [address] Kamilah Martinez MD [address] [facility] [address] [place], [place] [address] Social History Tobacco Use Types Packs/Day Years [...] do you attend chur or lutheran services? Never 08/18/2023 Do you belong to any clubs o r organizations such as temple groups, unions, fraternal or athletic groups, or [...] Recorded Patient Health Questionnaire-2 Score 0 01/20/2024 [facility] of Occupat ional Health - Occupational [...] Office Visit [facility] [address] [place] [address] Bijal Antunez NP [address] [place] [address] 02/22/2026 11:10 AM EDT Office Visit [facility]ER[facility] [address] [place] [address] Rose Taylor PA [address] [place] [address] documented as of this encounter Procedures Procedure Name Priority Date/Time Associated Diagnosis Comments SCANNED LABS Routine 04/17/2023 11:38 AM EDT documented in this encounter Results * SCANNED LABS (04/17/2023 11:38 AM EDT) us Kamilah Martinez MD LAB CHG PERFORMABLES Final Re sult documented in this encounter Visit Diagnoses Not on filedocumented in this encounter Care Teams Diesel Trailer Mechanic Relationship Specialty Start Date End Date Charan Quinn MD [address] [place] [address] PCP - General Family Medicine 01/20/24 Bijal Antunez NP [address] [place] [address] PCP - [facility] 12/14/23 Bijal Antunez NP [address] [place] [address] Nurse Practitioner Family Medicine 01/20/24 documented as of this encounter
--- OUTSIDE RECORDS SUMMARY | 2025-03-13 10:31 | XMS_ITS | Encounter Summary ---
Author Organization [facility] Address [address] [place] [address] Care Team Providers Care Life Insurance Actuary Name Role Phone Charan Quinn MD Primary Care Provider [phone] Bijal Antunez NP Unavailable [phone] Bijal Antunez NP Unavailable [phone] Encounter Details Date Type Department Care Team (Late st Contact Info) Description 03/10/2025 Clinisync Result Encounter [facility] External Department Unsolicited Bijal Antunez, SIENNA [address] [place] [address] Social History Tobacco Use Types Packs/Day Years [...] How often do you attend chur or religion services? 1 to 4 times per year 11/09/2024 Do you belong to any clubs o r organizations such as gnosticism groups, unions, fraternal or athletic groups, or [...] Recorded Patient Health Questionnaire-2 Score 0 08/22/2024 [facility] of Occupat ional Health - Occupational Stress [...] in a assisted (including now)? No 08/18/2023 Housing Stability Vital Sign Answer Derick e Recorded In the last 12 months, was t here a time when you were not able to pay the mortgage or rent on time? No 11/09/2024 In the past 12 months, how m any times have you moved where you were living? 0 11/09/2024 At any time in the past 12 m [facility], were you homeless or living in a assisted (including now)? No 11/09/2024 Comments No Sex [...] Visit [facility] GALVEZ [address] [place] [address] Bijal Antunez NP [address] [place] [address] 02/22/2026 11:10 AM EDT Office Visit [facility] BORIS BARRY [address] [place] [address] Rose Taylor PA [address] [place] [address] documented as of this encounter Procedures Procedure Name Priority Date/Time Associated Diagnosis Comments US THYROID 03/10/2025 12:56 PM EDT documented in this encounter Results * US thyroid (03/10/2025 12:56 PM EDT) Anatomical Region Laterality Modality Head, Neck Ultrasound 03/10/2025 12:5 6 PM EDT Narrative 03/10/2025 12:59 PM EDT The [address] [address] Ultrasound Report Signed Patient: WAYNE LOZADA MR#: [id number] : 1965 Acct:[id number] Age/Sex: 59 / F ADM Date: 03/10/25 Loc: US Attending Dr: Bijal Antunez NP Ordering Physician: Bijal Antunez NP Date of Service: 03/10/25 Procedure(s): US thyroid Accession Number(s): [id number] cc: Bijal Antunez NP The [address] [address] Patient Name: WAYNE LOZADA MRN: [id number] date: 1965 Sex: F Assigned Patient Location: US Current Patient Location: US Accession/Order Number: [id number] Exam Date: 03/10/2025 12:50 Report Date: 03/10/2025 12:56 At the request of: BIJAL ANTUNEZ NP Procedure: US thyroid US thyroid 03/10/2025 12:13 PM SIGNS AND SYMPTOMS: Thyroid Nodule E04.1 COMPARISON: 01/10/2022 FINDINGS: Right and left thyroid lobes are normal in size and echotexture. The right thyroid lobe measures 4.3 x 2.2 x 2.0 cm and the left thyroid lobe measures 1.4 x 0.6 x 0.7 cm. The isthmus measures 0.3 cm. In the interpolar region on the right there is an echogenic margins SMOOTHLY marginated 9 x 8 x 9 mm solid appearing cysts mass without adjacent to this.. There is an additional echogenic solid appearing with a marked in the slightly nodule which is not smaller than wide. No accompanying calcifications. This is adjacent to the larger nodule. In the interpolar region of the left thyroid lobe there is a similar 1.4 x 0.2 x 0.6 cm wider than tall smoothly marginated hypoechoic solid-appearing structure which is similar to perhaps slightly larger when compared to the prior exam. No cervical lymphadenopathy is noted. US/US thyroid IMPRESSION: TIRADS: 4 (moderately suspicious) Moderately suspicious nodules are redemonstrated without significant interval change when compared to 2021 exam. This would represent a 3 year follow-up study. Recommendation: Continued interval follow-up is recommended at year 5 (2026). Impression dictated by: Marv Soni M.D. 03/10/2025 12:56 PM Dictation Location: [place] [address] Electronically authenticated by: [id number] Y Date: 03/10/2025 12:56 Dictated By: Marv Soni M.D. Signed By: 03/10/25 1259 DD/ 1256 TD/TT: Antisqueak Filler: Procedure Note Radiology, Radiologist, MD - 03/10/2025 [place] [address] Ultrasound Report Signed Patient: WAYNE LOZADA KMR#: [id number] : 1965Acct:[id number] Age/Sex: 59 / FADM Date: 03/10/25 Loc: US Attending Dr: Bijal Antunez NP Ordering Physician: Bijal Antunez NP Date of Service: 03/10/25 Procedure(s): US thyroid Accession Number(s): [id number] cc: Bijal Antunez NP [address] [address] Patient Name: WAYNE LOZADA MRN: [facility]:[id number] date: 1965 Sex: F Assigned Patient Location: US Current Patient Location: US Accession/Order Number: [id number] Exam Date: 03/10/2025 12:50 Report Date: 03/10/2025 12:56 At the request of: BIJAL ANTUNEZ NP Procedure: US thyroid US thyroid 03/10/2025 12:13 PM SIGNS AND SYMPTOMS: Thyroid Nodule E04.1 COMPARISON: 01/10/2022 FINDINGS: Right and left thyroid lobes are normal in size and echotexture. The right thyroid lobe measures 4.3 x 2.2 x 2.0 cm and the left thyroid lobemeasures 1.4 x 0.6 x 0.7 cm. The isthmus measures 0.3 cm. In the interpolar region on the right there is an echogenic marginsSMOOTHLY marginated 9 x 8 x 9 mm solid appearing cysts mass without adjacent tothis.. There is an additional echogenic solid appearing with a marked in theslightly nodule which is not smaller than wide. No accompanying calcifications.This is adjacent to the larger nodule. In the interpolar region of the left thyroid lobe there is a similar 1.4 x0.2 x 0.6 cm wider than tall smoothly marginated hypoechoic solid-appearing structure which is similar to perhaps slightly larger when compared to the prior exam. No cervical lymphadenopathy is noted. US/US thyroid IMPRESSION: TIRADS: 4 (moderately suspicious) Moderately suspicious nodules are redemonstrated without significantinterval change when compared to 2021 exam. This would represent a 3 yearfollow-up study. Recommendation: Continued interval follow-up is recommended at year 5(2026). Impression dictated by: Marv Soni M.D. 03/10/2025 12:56 PM Dictation Location: [place] Electronically authenticated by: [id number] Y Date: :56 Dictated By: Marv Soni M.D. Signed By:03/10/25 1259 DD/ 1256 TD/TT: Antisqueak Filler: us Bijal Antunez NP IMG US PROCEDURES Final Result documented in this encounter Visit Diagnoses Not on filedocumented in this encounter Care Teams Life Insurance Actuary Relationship Specialty Start Date End Date Charan Quinn MD [address] [place] [address] PCP - General Family Medicine 01/20/24 Bijal Antunez NP [address] [place] [address] PCP - [facility] 12/14/23 Bijal Antunez NP [address] [place] [address] Nurse Practitioner Family Medicine 01/20/24 documented as of this encounter
--- OUTSIDE RECORDS SUMMARY | 2025-03-13 10:31 | XMS_ITS | Encounter Summary ---
Author Organization [facility] Address [address] [place] [address] Care Team Providers Care Electric Power Machine Operator Name Role Phone Charan Quinn MD Primary Care Provider [phone] Bijal Antunez WEB OPERATIONS ADMINISTRATOR Unavailable [phone] Bijal Antunez WEB OPERATIONS ADMINISTRATOR Unavailable [phone] Encounter Details Date Type Department Care Team (Late st Contact Info) Description 03/03/2025 Refill [facility] [address] [place] [address] Bijal Antunez WEB OPERATIONS ADMINISTRATOR [address] [place] [address] Postprandial RUQ pain (Primary Dx); Mass of gallbladder Social History Tobacco Use Types Packs/Day Years [...] How often do you attend chur or church services? 1 to 4 times per year [...] Recorded Patient Health Questionnaire-2 Score 0 08/22/2024 [facility] - [facility] Stress Questionnaire Answer Date Recorded [...] place to sleep or slept in a long term (including now)? No 08/18/2023 Housing Stability Vital Sign Answer Derick e Recorded In the last 12 months, was t here a time when you were not able to pay the mortgage or rent on time? No 11/09/2024 In the past 12 months, how m any times have you moved where you were living? 0 11/09/2024 At any time in the past 12 m [facility], were you homeless or living in a long term (including now)? No 11/09/2024 Comments No Sex [...] [facility] [address] [place] [address] Bijal Antunez NP [address] [place] [address] 02/22/2026 11:10 AM EDT Office Visit [facility] DER[facility] [address] [place] [address] Rose Taylor PA [address] [place] [address] documented as of this encounter Visit Diagnoses Diagnosis Postprandial RUQ pain- Primary Mass of gallbladder documented in this encounter Care Teams Electric Power Machine Operator Relationship Specialty Start Date End Date Charan Quinn MD [address] [place] [address] PCP - General Family Medicine 01/20/24 Bijal Antunez NP [address] [place] [address] PCP - [facility] 12/14/23 Bijal Antunez NP [address] [place] [address] Nurse Practitioner Family Medicine 01/20/24 documented as of this encounter
--- OUTSIDE RECORDS SUMMARY | 2025-03-13 10:31 | XMS_ITS | Encounter Summary ---
Author Organization [facility] Address [address] [place] [address] Care Team Providers Care Infrastructure Administrator Name Role Phone Charan Quinn MD Primary Care Provider [phone] Bijal Antunez CARPET YARN WINDER OPERATOR Unavailable [phone] Bijal Antunez CARPET YARN WINDER OPERATOR Unavailable [phone] Encounter Details Date Type Department Care Team (Late st Contact Info) Description 09/22/2024 Orders Only [facility] CWM FM [address] [place] [address] Bijal Antunez CARPET YARN WINDER OPERATOR [address] [place] [address] Social History Tobacco Use Types Packs/Day Years [...] How often do you attend chur or shinto services? Never 08/18/2023 Do you belong to any clubs o r organizations such as religious groups, unions, fraternal or athletic groups, or [...] Recorded Patient Health Questionnaire-2 Score 0 08/22/2024 [facility] of Occupat ional Health - Occupational Stress [...] Visit [facility] LOGAN GALVEZ [address] [place] [address] Bijal Antunez NP [address] [place] [address] 02/22/2026 11:10 AM EDT Office Visit [facility] BORIS B[facility]Y [address] [place] [address] Rose Taylor PA [address] [place] [address] documented as of this encounter Procedures Procedure Name Priority Date/Time Associated Diagnosis Comments SCANNED LABS Routine 09/22/2024 11:19 AM EST documented in this encounter Results * SCANNED LABS (09/22/2024 11:19 AM EST) Bijal Antunez CARPET YARN WINDER OPERATOR LAB CHG PERFORMABLES Final Resu lt documented in this encounter Visit Diagnoses Not on filedocumented in this encounter Care Teams Infrastructure Administrator Relationship Specialty Start Date End Date Charan Quinn MD [address] [place] [address] PCP - General Family Medicine 01/20/24 Bijal Antunez NP [address] [place] [address] PCP - [facility] 12/14/23 Bijal Antuenz NP [address] [place] [address] Nurse Practitioner Family Medicine 01/20/24 documented as of this encounter
--- OUTSIDE RECORDS SUMMARY | 2025-03-13 10:31 | XMS_ITS | Clinical Summary ---
Author Organization [employer] [facility] Address [id number] [address] [place] [address] Care Team Providers Care Manager Primary Care Name Role Phone Bijal Antunez APRN-CELL CLEANER Primary Care Provider Allergies No known active [...] EDT - 12/29/2024 6:44 PM EDT Emergency [facility] - Emergency [address] [place] [id number] Jeremi Rojas MD Elkhatib, Ahmad M, Angioedema, [...] - 11.0 X10E9/L 12/29/2024 2:48 PM EDT [facility] RBC count 3.95 3.80 - 5.20 X10E12/L 12/29/2024 2:48 PM EDT [facility] Hemoglobin 12.6 11.7 - 15.5 g/dL 12/29/2024 2:48 PM EDT [facility] Hematocrit 35.9 35 - 47 % 12/29/2024 2:48 PM EDT [facility] MCV 91 80 - 100 fL 12/29/2024 2:48 PM EDT [facility] MCH 32.0 27 - 34 pg 12/29/2024 2:48 PM EDT [facility] MCHC 35.1 32 - 36 g/dL 12/29/2024 2:48 PM EDT [facility] RDW 13.3 11.5 - 15.0 % 12/29/2024 2:48 PM EDT [facility] Platelets 358 150 - 450 X10E9/L 12/29/2024 2:48 PM EDT [facility] MPV 6.3(L) 7 - 12 fL 12/29/2024 2:48 PM EDT [facility] % neutrophils 74.6 % 12/29/2024 2:48 PM EDT [facility] % lymphocytes 15.8 % 12/29/2024 2:48 PM EDT [facility] % monocytes 6.6 % 12/29/2024 2:48 PM EDT [facility] % eosinophils 2.7 % 12/29/2024 2:48 PM EDT [facility] % Basophils 0.3 % 12/29/2024 2:48 PM EDT [facility] Neutrophils Absolute (A) 5.2 1.5 - 6.6 X10E9/L 12/29/2024 2:48 PM EDT [facility] Lymphocytes Absolute 1.1 1.0 - 3.5 X10E9/L 12/29/2024 2:48 PM EDT [facility] Monocytes Absolute 0.5 0 - 0.9 X10E9/L 12/29/2024 2:48 PM EDT [facility] Eosinophils Absolute 0.2 0.0 - 0.4 X10E9/L 12/29/2024 2:48 PM EDT [facility] Basophils Absolute 0.0 0.0 - 0.2 X10E9/L 12/29/2024 2:48 PM EDT [facility] Blood Blood / Unknown 12/29/2024 2 :39 PM EDT 12/29/2024 2:42 PM EDT us Jeremi Rojas MD LAB BLOOD ORDERABLES Final Re sult [facility] [address] [place] [address], [place] [id number] * (ABNORMAL) Basic Metabolic Panel (12/29/2024 2:39 PM EDT) Sodium 136 134 - 146 mmol/L 12/29/2024 2:54 PM EDT [facility] Potassium, Bld 3.5 3.5 - 5.0 mmol/L 12/29/2024 2:54 PM EDT [facility] Chloride 99 98 - 109 mmol/L 12/29/2024 2:54 PM EDT [facility] CO2 25 22 - 32 mmol/L 12/29/2024 2:54 PM EDT [facility] Anion gap 12 5 - 15 mmol/L 12/29/2024 2:54 PM EDT [facility] BUN 29(H) 5 - 23 mg/dL 12/29/2024 2:55 PM EDT [facility] Creatinine 0.59 0.40 - 1.00 mg/dL 12/29/2024 2:55 PM EDT [facility] Comment:METHOD TRACEABLE TO IDMS STANDARD Glucose 112(H) 65 - 99 mg/dL 12/29/2024 2:54 PM EDT [facility] Calcium 9.2 8.5 - 10.5 mg/dL 12/29/2024 2:54 PM EDT [facility] eGFR (CKD-EPI)non-ra ce dependent >90 >59 ml/min/1.7 3sq.m 12/29/2024 2:55 PM EDT [facility] Comment: Reported eGFR is based on the CKD-EPI 2020 equation that does not use a race coefficient. Blood (PLASMA) 12/29/2024 2: 39 PM EDT 12/29/2024 2:42 PM EDT Jeremi Rojas MD LAB BLOOD ORDERABLES [facility] [address] [facility] [place] [id number] from Last [address] [place] [address] Care Teams Manager Primary Care Relationship Specialty Start Date End Date Bijal Antunez, ELECTRICIAN WIRING-CELL CLEANER PCP - General Nurse Practitioner 12/29/24
--- OUTSIDE RECORDS SUMMARY | 2025-03-13 10:31 | XMS_ITS | Encounter Summary ---
Author Organization [facility] Address [address] [place] [address] Care Team Providers Care Vamp Presser Name Role Phone Charan Quinn MD Primary Care Provider [phone] Bijal Antunez [employer] P[employer]ER [employer] P[employer] Unavailable [phone] Bijal Antunez NP Unavailable [phone] Reason for Referral * Imaging (Routine) - Authorized Specialty Diagnoses / Procedures Referred By Contac t Referred To Contact Acute [facility] Diagnoses Mass of gallbladder Procedures MR abdomen w and wo contrast Bijal Antunez NP [address] [place] [address] Phone: tel: fax: [facility] [address] [place] [address] Referral ID Status Reason Start Date Expiration Date V isits Requested Visits Authorized [id number] Authorized 03/03/2025 08/30/2025 1 1 Encounter Details Date Type Department Care Team (Late st Contact Info) Description 03/03/2025 Orders Only [facility] [address] [place] [id number] Bijal Antunez NP [address] [place] [address] Mass of gallbladder (Primary Dx) Social [...] do you attend chur or shinto services? 1 to 4 times per year 11/09/2024 Do you belong to any clubs o r organizations such as mormon groups, unions, fraternal or athletic groups, or [...] Recorded Patient Health Questionnaire-2 Score 0 08/22/2024 [facility] - Occupational [...] place to sleep or slept in a skilled nursing (including now)? No 08/18/2023 Housing Stability Vital Sign Answer Derick e Recorded In the last 12 months, was t here a time when you were not able to pay the mortgage or rent on time? No 11/09/2024 In the past 12 months, how m any times have you moved where you were living? 0 11/09/2024 At any time in the past 12 m [facility], were you homeless or living in a skilled nursing (including now)? No 11/09/2024 Comments No Sex [...] Visit [facility] [address] [place] [address] Bijal Antunez NP [address] [place] [address] 02/22/2026 11:10 AM EDT Office Visit [facility] [address] [place] [address] Rose Taylor PA [address] [place] [address] Scheduled Orders Name Type Priority Associated Diagnoses Orde r Schedule MR abdomen w and wo contrast Imaging Routine Mass of gallbladder Expected: 03/03/2025 (Approximate), Expires: 03/03/2026 documented as of this encounter Visit Diagnoses Diagnosis Mass of gallbladder- Primary documented in this encounter Care Teams Vamp Presser Relationship Specialty Start Date End Date Charan Quinn MD [address] [place] [address] PCP - General Family Medicine 01/20/24 Bijal Antunez NP [address] [place] [address] PCP - [employer] 12/14/23 Bijal Antunez NP [address] [place] [address] Nurse Practitioner Family Medicine 01/20/24 documented as of this encounter
--- OUTSIDE RECORDS SUMMARY | 2025-03-13 10:31 | XMS_ITS | Encounter Summary ---
Author Organization [facility] Address [address] [place] [address] Care Team Providers Care Labor Commissioner Name Role Phone Charan Quinn MD Primary Care Provider [phone] Bijal Antunez TRAINING GENERALIST Unavailable [phone] Bijal Antunez TRAINING GENERALIST Unavailable [phone] Encounter Details Date Type Department Care Team (Latest Contact Info) Description 03/05/2025 Travel Social History Tobacco Use Types Packs/Day [...] How often do you attend chur or muslim services? 1 to 4 times per year 11/09/2024 Do you belong to any clubs o r organizations such as anglican groups, unions, fraternal or athletic groups, or [...] Recorded Patient Health Questionnaire-2 Score 0 08/22/2024 [facility] [place] of Occupat ional Health - Occupational Stress [...] any time in the past 12 m [facility], were you homeless or living in a [...] Visit [facility] [address] [place] [address] Bijal Antunez NP [address] [place] [address] 02/22/2026 11:10 AM EDT Office Visit [facility] [address] [place] [address] Rose Taylor PA [address] [place] [address] documented as of this encounter Visit Diagnoses Not on filedocumented in this encounter Care Teams Labor Commissioner Relationship Specialty Start Date End Date Charan Quinn MD [address] [place] [address] PCP - General Family Medicine 01/20/24 Bijal Antunez NP [address] [place] [address] PCP - [facility] 12/14/23 Bijal Antunez NP [address] [place] [address] Nurse Practitioner Family Medicine 01/20/24 documented as of this encounter
--- OUTSIDE RECORDS SUMMARY | 2025-03-13 10:31 | XMS_ITS | Encounter Summary ---
Author Organization [facility] Address [address] [place] [address] Care Team Providers Care Metallurgist Helper Name Role Phone Charan Quinn MD Primary Care Provider [phone] Bijal Antunez DIRECTOR SHIP Unavailable [phone] Bijal Antunez DIRECTOR SHIP Unavailable [phone] Encounter Details Date Type Department Care Team (Late st Contact Info) Description 03/06/2025 Abstract [facility] [address] [place] [phone] Bijal Antunez DIRECTOR SHIP [address] [place] [address] Social History Tobacco Use Types Packs/Day Years [...] often do you attend chur ch or anabaptist services? 1 to 4 times per year 11/09/2024 Do you belong to any clubs o r organizations such as denominational groups, unions, fraternal or athletic groups, or [...] Recorded Patient Health Questionnaire-2 Score 0 08/22/2024 [facility] [place] of Occupat ional Health - Occupational Stress [...] any time in the past 12 m [facility], were you homeless or living in [...] [facility] [address] [place] [address] Bijal Antunez NP [address] [place] [address] 02/22/2026 11:10 AM EDT Office Visit [facility] [address] [place] [address] Rose Taylor PA [address] [place] [address] documented as of this encounter Visit Diagnoses Not on filedocumented in this encounter Care Teams Metallurgist Helper Relationship Specialty Start Date End Date Charan Quinn MD [address] [place] [phone] PCP - General Family Medicine 01/20/24 Bijal Antunez NP [address] [place] [address] PCP - [facility] 12/14/23 Bijal Antunez NP [address] [place] [address] Nurse Practitioner Family Medicine 01/20/24 documented as of this encounter
--- OUTSIDE RECORDS SUMMARY | 2025-03-13 10:31 | XMS_ITS | Clinical Summary ---
Author Organization [facility] Address [address] [place] [address] Care Team Providers Care Metal Furrer Name Role Phone Charan Quinn MD Primary Care Provider [phone] AicBijal kaiser RODDING MACHINE TENDER Unavailable [phone] Bijal Antunez RODDING MACHINE TENDER Unavailable [phone] Allergies Active Allergy Reactions Criticality Noted [...] the morning. Active albuterol HFA 90 mcg/act inhalerIndications:W heezing Inhale 2 puffs every 4 (four) hours if needed for wheezing 18 g 2 11/09/19 24 Active estradiol (Estrace) 2 MG tabletIndications:Ho rmone replacement therapy Take 1 tablet (2 mg) by mouth Daily 90 tablet 3 08/22/20 24 Active nystatin-triamcinolo ne (Mycolog II) creamIndications:Abdulaziz h Apply 1 application topically every 12 (twelve) hours 15 g 3 11/17/19 25 Active atorvastatin (Lipitor) 40 MG tabletIndications:Pu re hyperglyceridemia Take 1 tablet (40 mg) by mouth at bedtime 90 tablet 1 02/16/20 25 2024 Active carvedilol (Coreg) 3.125 MG tabletIndications:Pr imary hypertension Take 1 tablet (3.125 mg) by mouth in the morning and 1 tablet (3.125 mg) in the evening. Take with meals. 180 tablet 1 02/16/20 25 2024 Active cholecalciferol (Vitamin D-3) 25 MCG tabletIndications:Vi tamin D deficiency Take 1 tablet (25 mcg) by mouth Daily Take 1 tablet by mouth Daily 90 tablet 1 02/16/20 25 2024 Active cyclobenzaprine (Flexeril) 10 MG tabletIndications:Ot her chronic pain Take 1 tablet (10 mg) by mouth as needed at bedtime for muscle spasms 90 tablet 1 02/16/20 25 2024 Active hydroCHLOROthiazide (HYDRODiuril) 25 MG tabletIndications:Bi lateral lower extremity edema,Essential (primary) hypertension Take 1 tablet (25 mg) by mouth 2 (two) times a day as needed (swelling) 180 tablet 1 02/16/20 25 2024 Active levothyroxine (Synthroid) 150 MCG tabletIndications:Ac quired hypothyroidism Take 1 tablet (150 mcg) by mouth in the morning. Take before meals. 90 tablet 1 02/16/20 25 2024 Active ondansetron (Zofran) 4 MG tabletIndications:Po stprandial RUQ pain,Abnormal gallbladder ultrasound Take 1 tablet (4 mg) by mouth every 8 (eight) hours if needed for nausea for up to 10 days 30 tablet 03/06/20 25 2024 Active cyclobenzaprine (Flexeril) 5 MG tablet Take 1 tablet by mouth as needed at bedtime for muscle spasms 2024 Discontin ued(Reord er) cholecalciferol (Vitamin D-3) 25 MCG tablet Take 1 tablet by mouth Daily 2024 Discontin ued(Reord er) levothyroxine (Synthroid) 150 MCG tabletIndications:Ac quired hypothyroidism Take 1 tablet (150 mcg) by mouth in the morning. Take before meals. 90 tablet 3 04/04/20 24 2024 Discontin ued(Reord er) hydroCHLOROthiazide (HYDRODiuril) 25 MG tabletIndications:Bi lateral lower extremity edema,Essential (primary) hypertension Take 1 tablet (25 mg) by mouth 2 (two) times a day as needed (swelling) 180 tablet 1 08/17/20 24 2024 Discontin ued(Reord er) atorvastatin (Lipitor) 40 MG tabletIndications:Pu re hyperglyceridemia Take 1 tablet (40 mg) by mouth at bedtime 90 tablet 1 08/17/20 24 2024 Discontin ued(Reord er) carvedilol (Coreg) 3.125 MG tabletIndications:Pr imary hypertension Take 1 tablet (3.125 mg) by mouth in the morning and 1 tablet (3.125 mg) in the evening. Take with meals. 60 tablet 1 12/31/19 25 2024 Discontin ued(Reord er) ibuprofen 800 MG tabletIndications:Ot her chronic pain Take 1 tablet (800 mg) by mouth 3 (three) times a day as needed for moderate pain 90 tablet 1 02/07/20 25 2024 clotrimazole-betamet hasone (Lotrisone) lotionIndications:Ra sh and other nonspecific skin eruption Apply topically in the morning and before bedtime. Do all this for 7 days. 30 mL 02/09/20 25 2024 HYDROcodone-acetamin ophen ([place]) 5-325 MG tabletIndications:Po stprandial RUQ pain,Mass of gallbladder Take 1 tablet by mouth every 8 (eight) hours if needed for severe pain for up to 5 days 15 tablet 03/03/20 25 2024 ondansetron (Zofran) 4 MG tablet Take 4 mg by mouth every 8 (eight) hours if needed for nausea 03/02/20 25 2024 Discontin ued(Reord er) Active Problems Problem Noted Date Diagnosed Date Mass of gallbladder 03/03/2025 Assessment & Plan (03/06/2025 4:21 PM EDT): MRI ordered Abnormal gallbladder ultrasound 03/02/2025 Assessment & Plan (03/06/2025 4:21 PM EDT): Ordering MRI Mixed hyperlipidemia 02/15/2025 Assessment & Plan (02/15/2025 6:09 AM EDT): On statin therapy Check labs yearly and prn dose changes Vitamin D deficiency 02/15/2025 Neoplasm of uncertain behavior 02/15/2025 Assessment & Plan (02/15/2025 9:08 AM EDT): Refer to Derm Postprandial RUQ pain 11/15/2024 Assessment & Plan (03/06/2025 7:40 AM EDT): Hx stones on GBUS, wanted to observe, was in [facility] ER on 03/01/25 Had another US, did show ??mass near gallbladder, recommended MRI abd This was ordered Assessment & Plan (02/15/2025 9:00 AM EDT): [...] ty in adult 08/20/2023 Assessment & Plan (03/06/2025 4:21 PM EDT): Discussed with patient their BMI (actual, verses recommended). We have also discussed lifestyle modifications: attempts to perform physical activity as chronic conditions allow, also to monitor dietary intake: increasing protein/fruits/veggies and lowering carb intake (unless contraindicated). Limit sodas, juices, and sugary drinks. Assessment & Plan (02/15/2025 9:01 AM EDT): [...] 05/25/2024 Chronic vulvovaginitis 02/24/202302/24 Difficulty walking 02/24/2023 3 Encounters Date Type Department Care Team Description 03/10/2025 Clinisync Result Encounter [facility] Department Unsolicited Bijal Antunez NP 03/06/2025 3:40 PM EDT Office Visit [facility] [address] [place] [address] Bijal Antunez NP Postprandial RUQ pain (Primary Dx); Abnormal gallbladder ultrasound; Mass of gallbladder; Class 3 severe obesity due to excess calories without serious comorbidity with body mass index (BMI) of 40.0 to 44.9 in adult ([facility]) 03/06/2025 Abstract [facility] [address] [place] [address] Bijal Antunez NP 03/05/2025 Travel 03/03/2025 Refill [facility] [address] [place] [address] Bijal Antunez NP Postprandial RUQ pain (Primary Dx); Mass of gallbladder 03/03/2025 Orders Only [facility] [address] [place] [address] Bijal Antunez NP Mass of gallbladder (Primary Dx) 03/02/2025 Telephone [facility] [address] [place] [address] Bijal Antunez NP 03/02/2025 Orders Only [facility] [address] [place] [address] Bijal Antunez NP Postprandial RUQ pain (Primary Dx); Abnormal gallbladder ultrasound 03/02/2025 Abstract [facility] [address] [place] [address] Bijal Antunez NP 03/02/2025 Orders Only [facility] [address] [place] [address] Jen Rodgers PA 02/23/2025 11:10 AM EDT Office Visit [facility] [address] [place] [address] Rose Taylor PA Melanocytic nevus of upper extremity, unspecified laterality (Primary Dx); Melanocytic nevus of face, other location; Melanocytic nevus of trunk; Lentigo simplex; Seborrheic keratosis; Acrochordon 02/23/2025 Bamboo flowsheet [facility] [address] [place] [address] Rose Taylor PA 02/23/2025 Travel 02/21/2025 Travel 02/15/2025 8:40 AM EDT Office Visit [facility] [address] [place] [address] Bijal Antunez NP Primary hypertension (Primary Dx); Postprandial RUQ pain; Bilateral lower extremity edema; Class 3 severe obesity due to excess calories without serious comorbidity with body mass index (BMI) of 40.0 to 44.9 in adult ([facility]); Mixed hyperlipidemia ; Pure hyperglyceridemia ; Essential (primary) hypertension ; Acquired hypothyroidism ; Other chronic pain; Vitamin D deficiency; Thyroid nodule ; Neoplasm of uncertain behavior 02/15/2025 Bamboo flowsheet [facility] [address] [place] [address] Bijal Antunez NP 02/15/2025 Travel 02/08/2025 Refill [facility] [address] [place] [address] Bijal Antunez NP Rash and other nonspecific skin eruption 02/05/2025 Refill [facility] [address] [place] [address] Bijal Antunez NP Other chronic pain 01/12/2025 Clinisync Result Encounter [facility] External Department Unsolicited Klaudia Barakat DO 12/30/2024 Refill [facility] [address] [place] [address] Bijal Antunez NP Primary hypertension (Primary Dx) 12/29/2024 Telephone [facility] [address] [place] [address] Bijal Antunez NP from Last 3 Months [...] often do you attend chur ch or latter day services? 1 to 4 times per year 11/09/2024 Do you belong to any clubs o r organizations such as yazdanism groups, unions, fraternal or athletic groups, or [...] Recorded Patient Health Questionnaire-2 Score 0 08/22/2024 [facility] - Occupational [...] place to sleep or slept in a [place] (including now)? No 08/18/2023 Housing Stability Vital Sign Answer Derick e Recorded In the last 12 months, was t here a time when you were not able to pay the mortgage or rent on time? No 11/09/2024 In the past 12 months, how m any times have you moved where you were living? 0 11/09/2024 At any time in the [facility], were you homeless or living in a [place] facility (including now)? No 11/09/2024 Comments No Sex [...] 6.4 oz) 03/06/2025 3:49 PM EDT Height 170.2 cm (5' 7 ) 11/15/2024 3:01 PM EST Body Mass Index 42.66 11/15/2024 3:01 PM EST Plan of Treatment Upcoming Encounters Date Type Department Care Team (Late st Contact Info) Description 05/18/2025 8:40 AM EDT Office Visit [facility] [address] [place] [address] Bijal Antunez NP [address] [place] [address] 02/22/2026 11:10 AM EDT Office Visit [facility] [address] [place] [address] Rose Taylor PA [address] [place] [address] Health Maintenance Due Date Last Done Comments CT Colonography 1965 FIT-DNA 1965 FIT 1965 FOBT 1965 Sigmoidoscopy 1965 Mammogram 01/12/2026 01/12/2025, 11/13, 12/01/2023, Additional history exists Colonoscopy 01/12/2029 01/12/2019 Colorectal Cancer Screening 01/12/2029 Pap Smear Discontinued 08/17/2023, 08/12/2022 Cervical Cancer Screening Discontinued HPV/Cotest Discontinued 08/22/2024 Influenza Vaccine Discontinued Procedures Procedure Name Priority Date/Time Associated Diagnosis Comments US THYROID 03/10/2025 12:56 PM EDT US RUQ ABDOMEN ANY ORGAN ANY QUADRANT [id number] Routine 03/02/2025 9:05 AM EDT MM TOMOSYNTHESIS SCREENING BI 01/12/2025 4:32 PM EDT IGP, APT HPV,RFX 16/18,45 Routine 08/22/2024 12:00 AM EST Screening for malignant neoplasm of cervix THINPREP TIS PAP AND HPV MRNA E6/E7 WITH REFLEX TO HPV 16,18/45 Routine 08/17/2023 3:01 PM EST Screening for malignant neoplasm of cervix from Last 3 Months or Most Recently Relevant to Health Maintenance Results * US thyroid (03/10/2025 12:56 PM EDT) Anatomical Region Laterality Modality Head, Neck Ultrasound 03/10/2025 12:5 6 PM EDT Narrative 03/10/2025 12:59 PM EDT The [address] [address] Ultrasound Report Signed Patient: WAYNE LOZADA MR#: [id number] : 1965 Acct:[id number] Age/Sex: 59 / F ADM Date: 03/10/25 Loc: US Attending Dr: Bijal Antunez NP Ordering Physician: Bijal Antunez NP Date of Service: 03/10/25 Procedure(s): US thyroid Accession Number(s): [id number] cc: Bijal Antunez NP [address] [address] Patient Name: WAYNE LOZADA MRN: [id number] date: 1965 Sex: F Assigned Patient Location: US Current Patient Location: US Accession/Order Number: [id number] Exam Date: 03/10/2025 12:50 Report Date: 03/10/2025 [...] Soni M.D. 03/10/2025 12:56 PM Dictation Location: [place] [address] Electronically authenticated by: [id number] Y Date: 03/10/2025 12:56 Dictated By: Marv Soni M.D. Signed By: 03/10/25 1259 DD/ 1256 TD/TT: Er Physician: Procedure Note Radiology, Radiologist, MD - 03/10/2025 The [place] [id number] Ultrasound Report Signed Patient: WAYNE LOZADA KMR#: [id number] : 1965Acct:[id number] Age/Sex: 59 / FADM Date: 03/10/25 Loc: US Attending Dr: Bijal Antunez NP Ordering Physician: Bijal Antunez NP Date of Service: 03/10/25 Procedure(s): US thyroid Accession Number(s): [id number] cc: Bijal Antunez NP The [address] [address] Patient Name: WAYNE LOZADA MRN: [id number] date: 1965 Sex: F Assigned Patient Location: US Current Patient Location: US Accession/Order Number: [id number] Exam Date: 03/10/2025 12:50 Report Date: 03/10/2025 [...] Soni M.D. 03/10/2025 12:56 PM Dictation Location: [place] [address] Electronically authenticated by: [id number] Y Date: 2:56 Dictated By: Marv Soni M.D. Signed By:03/10/25 1259 DD/ 1256 TD/TT: Er Physician: us Bijal Antunez NP IMG US PROCEDURES Final Result * US RUQ ABDOMEN ANY ORGAN ANY QUADRANT [id number] (03/02/2025 9:05 AM EDT) Anatomical Region Laterality Modality Radiographic Yancy ging Jen ROSADO IMG XR PROCEDURES Final Result * MM TOMOSYNTHESIS SCREENING BI (01/12/2025 4:32 PM EDT) Anatomical Region Laterality Modality Other 01/12/2025 4:32 PM EDT Narrative 01/12/2025 4:33 [place] [address] Mammography Report Signed Patient: WAYNE LOZADA MR#: [id number] : 1965 Acct:[id number] Age/Sex: 59 / F ADM Date: 01/12/25 Loc: MAMMO Attending Dr: KLAUDIA BARAKAT Ordering Physician: KLAUDIA BARAKAT Results: Date of Service: 01/12/25 Follow Up: Procedure(s): MM tomosynthesis screening BI Accession Number(s): [id number] cc: Bijal Antunez RODDING MACHINE TENDER; KLAUDIA BARAKAT Patient Name: WAYNE LOZADA MR#: [id number] : 1965 Exam Date: 01/12/2025 Ordering Doctor: DR KLAUDIA BARAKAT RADIOLOGY REPORT PROCEDURE: MM TOMOSYNTHESIS SCREENING [...] myeloma cancer at age 74. LOCATION: The [facility] BREAST COMPOSITION: There are scattered areas [...] Signed By: 01/12/25 1633 DD/ 31 TD/TT: Er Physician: Procedure Note Radiology, Radiologist, MD - 01/12/2025 The [place] [id number] Mammography Report Signed Patient: WAYNE LOZADA KMR#: [id number] : 1965Acct:[id number] Age/Sex: 59 / FADM Date: 01/12/25 Loc: MAMMO Attending Dr: KLAUDIA BARAKAT Ordering Physician: KLAUDIA BARAKATResults: Date of Service: 01/12/25Follow Up: Procedure(s): MM tomosynthesis screening BI Accession Number(s): [id number] cc: Bijal Antunez RODDING MACHINE TENDER; KLAUDIA BARAKAT Patient Name: WAYNE LOZADA MR#: [id number] : 1965 Exam Date: 01/12/2025 Ordering Doctor: DR KLAUDIA BARAKAT RADIOLOGY REPORT PROCEDURE: MM TOMOSYNTHESIS SCREENING BI COMPARISON: MM TOMOSYNTHESIS SCREENING BI, 12/01/2023. MG MAMM [id number] ISABELLA CAD, 10/28/2022. MG MAMM SCREEN 3D ISABELLA CAD, 10/23/2021. MG MAMM BILSCRN W CAD DIG, 04/02/2015. INDICATIONS: Screening Calculator Name NCI Breast Cancer Risk Assessment Tool 5 Year Breast Cancer Risk 1.00% Lifetime Breast Cancer Risk 5.50% Personal Breast Cancer No Personal Ovarian Cancer No Treatments None Family Cancers Mother with multiple myeloma cancer at age 74. LOCATION: The [facility] BREAST COMPOSITION: There are scattered areas [...] M.D. Signed By:01/12/25 1633 DD/ 1632 TD/TT: Er Physician: Klaudia Barakat DO [facility] Final Resu lt * IGP, APT HPV,RFX 16/18,45 (08/22/2024 12:00 AM EST) Diagnosis: Comment [facility] Comment:NEGATIVE FOR INTRAEP ITHELIAL LESION OR MALIGNANCY. Specimen Adequacy: Comment [facility] Comment: Satisfactory for evaluation. Endocervical and/or squamous metaplastic cells (endocervical component) are present. Clinician Provided ICD10: Comment [facility] Comment:Z12.4 Performed By: Comment [facility] Comment:Leena Landaverde, totechnologist (ASCP) Cyto Comments . [facility] Note: [...] 08/26/2024 3:06 PM EST Performed at: - [address] [id number] Pen Ruler Operator: Vielka Stanley MD, Phone: [phone] Performed at: - [address] [id number] Pen Ruler Operator: Vielka Stanley MD, Phone: [phone] Specimen Comment: [id number] Specimen Comment: No. of containers..01 ThinPrep Vial Klaudia Barakat DO LAB BLOOD ORDERABLES Final R esult [facility] * THINPREP TIS PAP AND HPV MRNA [...] has been evaluated with computer assisted technology. DRINKING WATER TECHNICIAN [facility] Comment: RONIKBASIM(ASCP) CT screening location: [place] [address]. (ALWAYS MESSAGE) [facility] Comment: EXPLANATORY NOTE: The [...] Not Detected Not Detected [facility] Comment: Methodology: Switch Tender-Mediated Amplification This assay detects E6/E7 viral messenger RNA (mRNA) from 14 high-risk HPV types (16,18,31,33,35,39,45,51,52,56,58,59,66,68). Cervical sources are required for HPV testing. If a vaginal source from a patient who has had a total hysterectomy with removal of cervix was submitted, please contact the testing laboratory for alternative testing options. For additional information, please refer to http://education.Mobakids/faq/HLF048w3 (This link if provided for information/ educational purposes only.) Swab 08/17/2023 3:01 PM EST 08/18/2023 4:11 AM EST Narrative Resulting Agency Comment Performing Organization Information Site ID: [id number] Name: [facility] Address: [address] [place] [address], [address] [place] [address] Director: Zhang Diez MD Klaudia Barakat DO LAB CYTOLOGY ORDERABLES Lainey becky Result [facility] from Last 3 Months or Most Recently Relevant to Health Maintenance Insurance [employer]BS Care Teams Metal Furrer Relationship Specialty Start Date End Date Charan Quinn MD [address] [place] [phone] PCP - General Family Medicine 01/20/24 Bijal Antunez NP [address] [place] [address] PCP - [place] [employer] 12/14/23 Bijal Antunez NP [address] [place] [address] Nurse Practitioner Family Medicine 01/20/24
--- OUTSIDE RECORDS SUMMARY | 2025-03-13 10:55 | XMS_ITS | CCD ---
Author Organization [facility] Care Team Providers Care Chief Lock Tender Operator Name Role Phone AICHHOLZ, FITNESS AND WELLNESS COORDINATOR BIJAL Attending Unavailable AICHHOLZ, FITNESS AND WELLNESS COORDINATOR BIJAL Admitting Unavailable AICHHOLZ, FITNESS AND WELLNESS COORDINATOR BIJAL Primary Care Unavailable AICHHOLZ, FITNESS AND WELLNESS COORDINATOR BIJAL Consulting Unavailable AICHHOLZ, FITNESS AND WELLNESS COORDINATOR BIJAL Primary Care Unavailable RAF NGUYEN Attending Unavailable PATRICK, RAF Admitting Unavailable Destin Mcdonough Consulting Unavailable RAF NGUYEN Consulting Unavailable AICHHOLZ, FITNESS AND WELLNESS COORDINATOR BIJAL Primary Care Unavailable RAF NGUYEN Attending Unavailable PATRICK RAF Admitting Unavailable [place], DR MEGAN Glaser Consulting Unavailable PATRICK, RAF Consulting Unavailable AICHHOLZ, FITNESS AND WELLNESS COORDINATOR BIJAL Primary Care Unavailable TIMMIS, DR DIXON Attending Unavailable TIMMIS, DR DIXON Admitting Unavailable TIMMIS, DR DIXON Consulting Unavailable AICHHOLZ, FITNESS AND WELLNESS COORDINATOR BIJAL Primary Care Unavailable PATRICK RAF Attending Unavailable Destin Mcdonough Consulting Unavailable PATRICK, RAF Admitting Unavailable RAF NGUYEN Consulting Unavailable AICHHOLZ, FITNESS AND WELLNESS COORDINATOR BIJAL Consulting Unavailable AICHHOLZ, FITNESS AND WELLNESS COORDINATOR BIJAL Attending Unavailable AICHHOLZ, FITNESS AND WELLNESS COORDINATOR BIJAL Admitting Unavailable AICHHOLZ, FITNESS AND WELLNESS COORDINATOR BIJAL Primary Care Unavailable AICHHOLZ, FITNESS AND WELLNESS COORDINATOR BIJAL Primary Care Unavailable DEVEN RIVAS Admitting Unavailable DEVEN RIVAS Consulting Unavailable DEVEN RIVAS Attending Unavailable MEGAN ZAMBRANO Consulting Unavailable KO ., FAROOQ Admitting Unavailable AICHHOLZ, FITNESS AND WELLNESS COORDINATOR BIJAL Primary Care Unavailable KO ., FAROOQ Attending Unavailable KO ., FAROOQ Attending Unavailable KO ., FAROOQ Admitting Unavailable AICHHOLZ, FITNESS AND WELLNESS COORDINATOR BIJAL Primary Care Unavailable KO ., FAROOQ Consulting Unavailable AICHHOLZ, FITNESS AND WELLNESS COORDINATOR BIJAL Primary Care Unavailable DEVEN RIVAS Admitting Unavailable DR MEGAN DANGELO V Consulting Unavailable DEVEN RIVAS Attending Unavailable DEVEN RIVAS Consulting Unavailable AICHHOLZ, FITNESS AND WELLNESS COORDINATOR BIJAL Attending Unavailable AICHHOLZ, FITNESS AND WELLNESS COORDINATOR BIJAL Admitting Unavailable AICHHOLZ, FITNESS AND WELLNESS COORDINATOR BIJAL Primary Care Unavailable DR MEGAN DANGELO V Consulting Unavailable AICHHOLZ, GLENNY BIJAL Consulting Unavailable AICHHOLZ, FITNESS AND WELLNESS COORDINATOR BIJAL Attending Unavailable AICHHOLZ, FITNESS AND WELLNESS COORDINATOR BIJAL Admitting Unavailable AICHHOLZ, FITNESS AND WELLNESS COORDINATOR BIJAL Primary Care Unavailable AICHHOLZ, FITNESS AND WELLNESS COORDINATOR BIJAL Consulting Unavailable AICHHOLZ, FITNESS AND WELLNESS COORDINATOR BIJAL Primary Care Unavailable DEVEN RIVAS Attending Unavailable DEVEN RIVAS Admitting Unavailable Destin Mcdonough Consulting Unavailable DEVEN RIVAS Consulting Unavailable Charan Quinn MD Primary Care Provider [phone] Aichholz CHAPLAIN RESIDENT, Bijal Unavailable Aichholz CHAPLAIN RESIDENT, Bijal Unavailable NON STAFF Attending Unavailable NON [...] Allergy Type Date of Onset Reaction(s) Facility (16 sources) Angiotensin-conv erting enzyme inhibitor agent Propensity to adverse reactions 5 Angioedema [facility] Medications Current Medications Medication Drug Class(es) Dates Sig (Normalized) Sig (Original) acetaminophen 325 mg / HYDROcodone bitartrate 5 mg oral tablet (3 sources) Opioid Agonist Start: 5 End: 5 take 1 tablet by mouth every eight hours for pain HYDROcodone-acetamino phen ([place]) 5-325 MG tablet Indications: Postprandial RUQ pain , Mass of gallbladder Take 1 tablet by mouth every 8 (eight) hours if needed for severe pain for up to 5 days 15 tablet 03/03/2025 03/08/2025 Active [id number] actuat albuterol 0.09 mg/actuat metered dose [...] 02/15/2025 Active carvedilol 3.125 mg oral tablet (18 sources) alpha-Adrenergic Paulette, beta-Adrenergic Paulette Start: End: [...] 1 08/17/2024 12/30/2024 Discontinued (Side effects) nystatin [id number] unt/ml / triamcinolone acetonide 1 mg/ml topical cream (20 sources) Polyene Antifungal, Corticosteroid Start: 11-16-2024 nystatin-triamcinol one (Mycolog II) cream Indications: Rash Apply 1 application topically every 12 (twelve) hours 15 g 3 11/16/2024 Active nystatin-triamci nolone (Mycolog II) cream Apply 1 application topically every 12 (twelve) hours. Active ondansetron 4 mg oral tablet (5 sources) Serotonin-3 Receptor Antagonist Start: 03-02-2025 End: [...] (BMI) of 45.0 to 49.9 in adult ([facility]) Inject 2.4 mg under the skin every 7 (seven) days for 28 days g 3 mL 1 08/10/2024 08/17/2024 Discontinued (Reorder) Start: 08-10-2024 End: 09-07-2024 Semaglutide-Weight Managemen t (Wegovy) 2.4 MG/0.75ML solution auto-injector Indications: Class 3 severe obesity due to excess calories without serious comorbidity with body mass index (BMI) of 45.0 to 49.9 in adult ([facility]) Inject 2.4 mg under the skin every 7 (seven) days for 28 days g 3 mL 1 08/10/2024 09/07/2024 Active Start: 05-25-2024 End: 06-22-2024 Semaglutide-Weight Managemen t (Wegovy) 2.4 MG/0.75ML solution auto-injector Indications: Class 3 severe obesity due to excess calories without serious comorbidity with body mass index (BMI) of 45.0 to 49.9 in adult ([facility]) Inject 2.4 mg under the skin every [...] (BMI) of 40.0 to 44.9 in adult ([facility]) Inject 2.5 mg under the skin 1 [...] (BMI) of 45.0 to 49.9 in adult ([facility]) Inject 1.7 mg under the skin every 7 (seven) days for 28 days 3 mL 04/29/2024 05/25/2024 Discontinued (Therapy completed) Start: 04-29-2024 End: 05-27-2024 Semaglutide-Weight Managemen t (Wegovy) 1.7 MG/0.75ML solution auto-injector Indications: Class 3 severe obesity due to excess calories without serious comorbidity with body mass index (BMI) of 45.0 to 49.9 in adult ([facility]) Inject 1.7 mg under the skin every 7 (seven) days for 28 days 3 mL 04/29/2024 05/27/2024 Active Problems Active Problems Problem Classification Problem Date Documented Date Episodic/Chronic Administrative/social admission (2 sources) Encounter for pre-employment examination; Translations: [Encounter for pre-employment examination] Onset: 11-08-2024 Episodic Allergic reactions (1 source) Allergic reaction Onset: 12-29-2024 Episodic Biliary tract disease (12 sources) Gallbladder mass; Translations: [Other specified diseases of gallbladder] Onset: 03-03-2025 03-03-2025 Episodic Disorders of lipid metabolism (20 sources) Hyperlipidemia, unspecified; Translations: [Pure hyperglyceridemia] Onset: 06-28-2022 Chronic Essential hypertension (20 sources) Essential (primary) hypertension; Translations: [Essential hypertension] Onset: 01-17-2023 Chronic Menopausal disorders (1 source) Drug therapy finding; Translations: [Hormone replacement therapy] 08-19-2024 Episodic Neoplasms of unspecified nature or uncertain behavior (15 sources) Neoplastic disease of uncertain behavior; Translations: [Neoplasm of uncertain behavior, unspecified] Onset: 02-15-2025 02-15-2025 Episodic Nutritional deficiencies (13 sources) Vitamin D deficiency; Translations: [Vitamin D [...] Classification Problem Date Documented Da te Episodic/Chronic Abdominal pain (20 sources) Right upper quadrant pain; Translations: [Right upper quadrant pain] Onset: 11-15-2024 11-15-2024 Episodic Diabetes mellitus without complication (5 sources) Prediabetes; [...] Test Name Value Interpretation Reference Range Facility [place] [address] Ultrasound Report Signed Patient: ARIANNA LOZADA MR#: [id number] : 1965 Acct:[id number] Age/Sex: 59 / F ADM Date: 03/10/25 Loc: US Attending Dr: Bijal Antunez NP Ordering Physician: Bijal Antunez NP Date of Service: 03/10/25 Procedure(s): US thyroid Accession Number(s): [id number] cc: Bijal Antunez NP [place] [id number] Patient Name: ARIANNA LOZADA MRN: [id number] date: 1965 Sex: F Assigned Patient Location: Current Patient Location: US Accession/Order Number: [id number] Exam Date: 03/10/2025 12:50 Report Date: 03/10/2025 [...] Soni M.D. 03/10/2025 12:56 PM Dictation Location: [place] [address] Electronically authenticated by: [id number] Y Date: 03/10/2025 12:56 Dictated By: Marv Soni M.D. Signed By: 03/10/25 1259 DD/ 1256 TD/TT: Piler: [facility] Radiology, Radiologist, MD - 03/10/[address] [address] Ultrasound Report Signed Patient: ARIANNA LOZADA MR#: [id number] : 1965 Acct:[id number] Age/Sex: 59 / F ADM Date: 03/10/25 Loc: US Attending Dr: Bijal Antunez NP Ordering Physician: Bijal Antunez NP Date of Service: 03/10/25 Procedure(s): US thyroid Accession Number(s): [id number] cc: Bijal Antunez NP The [address] [address] Patient Name: ARIANNA LOZADA MRN: [facility]:[id number] date: 1965 Sex: F Assigned Patient Location: US Current Patient Location: US Accession/Order Number: [id number] Exam Date: 03/10/2025 12:50 Report Date: 03/10/2025 [...] Soni M.D. 03/10/2025 12:56 PM Dictation Location: [place] [address] Electronically authenticated by: [id number] Y Date: 03/10/2025 12:56 Dictated By: Marv Soni M.D. Signed By: 03/10/25 1259 DD/ 1256 TD/TT: Piler: [facility] Radiology Study observation (narrative) [facility] US Thyroid glandOrdered By: Radiologist Radiology on 03-10-2025 [facility]NA[facility]ANQER[facility] e Work Phone: MM TOMOSYNTHESIS SCREENING B Ion 01-12-2025 [place] [address] Mammography Report Signed Patient: ARIANNA LOZADA MR#: [id number] : 1965 Acct:[id number] Age/Sex: 59 / F ADM Date: 01/12/25 Loc: MAMMO Attending Dr: HUMBERTO BARAKAT Ordering Physician: HUMBERTO BARAKAT Results: Date of Service: 01/12/25 Follow Up: Procedure(s): MM tomosynthesis screening BI Accession Number(s): [id number] cc: Bijal Antunez NP; HUMBERTO BARAKAT Patient Name: ARIANNA LOZADA MR#: [id number] : 1965 Exam Date: 01/12/2025 Ordering Doctor: [...] myeloma cancer at age 74. LOCATION: The [facility] BREAST COMPOSITION: There are scattered areas of [...] Lux M.D. Signed By: 01/12/25 1633 DD/ 163 TD/TT: Piler: [facility] Radiology, Radiologist, MD - 01/12/2025 [place] [address] Mammography Report Signed Patient: ARIANNA LOZADA MR#: [id number] : 1965 Acct:[id number] Age/Sex: 59 / F ADM Date: 01/12/25 Loc: MAMMO Attending Dr: HUMBERTO BARAKAT Ordering Physician: HUMBERTO BARAKAT Results: Date of Service: 01/12/25 Follow Up: Procedure(s): MM tomosynthesis screening BI Accession Number(s): [id number] cc: Bijal Antunez NP; HUMBERTO BARAKAT Patient Name: ARIANNA LOZADA MR#: [id number] : 1965 Exam Date: 01/12/2025 Ordering Doctor: [...] myeloma cancer at age 74. LOCATION: The [facility] BREAST COMPOSITION: There are scattered areas of [...] By: Zeke Lux M.D. Signed By: 01/12/25 163 DD/ 163 TD/TT: Piler: [facility] Radiology Study observation (narrative) [facility] MM TOMOSYNTHESIS SCREENING B IOrdered By: Radiologist Radiology on 01-12-2025 [facility] Work Phone: BASIC METABOLIC PANLon 12-29 Anion gap [Moles/Vol] 12 mmol/L Normal 5-15 [facility] Comment on above: Performed By: #### C BCA, BMP #### [facility] ([id number]) [address] [place] [address] Calcium [Mass/Vol] 9.2 mg/dL Normal 8.5-10.[address] [facility] Comment on above: Performed By: #### C BCA, BMP #### [facility] ([id number]) [address] [place] [address] Chloride [Moles/Vol] 99 mmol/L Normal 98-109 [facility] Comment on above: Performed By: #### C BCA, BMP #### [facility] ([id number]) [address] [place] [address] 34374 CO2 [Moles/Vol] 25 mmol/L Normal 22-32 [facility] Comment on above: Performed By: #### C BCA, BMP #### [facility] ([id number]) [address] [place] [address] Creatinine [Mass/Vol] 0.59 mg/dL Normal 0.40-1.00 [facility] Comment on above: Result Comment: METH OD TRACEABLE TO IDMS STANDARD Performed By: #### C KALEE, BMP #### [facility] ([id number]) [address] [place] [address] eGFR (CKD-EPI) NON-RACE DEPENDENT >90 Normal >59 [facility] Comment on above: Result Comment: Reported eGFR is based on the CKD-EPI 2020 equation that does not use a race coefficient. Performed By: #### C BCA, BMP #### [facility] ([id number]) [address] [place] [address] Glucose [Mass/Vol] 112 mg/dL High 65-[address] [facility] Comment on above: Performed By: #### C BCA, BMP #### [facility] ([id number]) [address] [place] [address] Potassium [Moles/Vol] 3.5 mmol/L Normal 3.5-5.0 [facility] Comment on above: Performed By: #### C KALEE, BMP #### [facility] ([id number]) [address] [place] [address] Sodium [Moles/Vol] 136 mmol/L Normal 134-[address] [facility] Comment on above: Performed By: #### C KALEE, BMP #### [facility] ([id number]) [address] [place] [address]25 Urea nitrogen [Mass/Vol] 29 mg/dL High 5-23 [facility] Comment on above: Performed By: #### C KALEE, BMP #### [facility] ([id number]) [address] [place] [address] CBC AND AUTO DIFFon 12-30-19 25 ABSOLUTE BASOPHIL 0.0 X10E9/L Normal 0.0-0.[address] [facility] Comment on above: Performed By: #### C KALEE, BMP #### [facility] ([id number]) [address] [place] [address] ABSOLUTE NEUTROPHIL 5.2 X10E9/L Normal 1.5-6.6 [facility] Comment on above: Performed By: #### C KALEE, BMP #### [facility] ([id number]) [address] [place] [address] Basophils/100 WBC (Bld) 0.3 % Normal [facility] Comment on above: Performed By: #### C KALEE, BMP #### [facility] ([id number]) [address] [place] [address] Eosinophils (Bld) [#/Vol] 0.2 10*3/uL Normal 0.0-0.4 [facility] Comment on above: Performed By: #### C KALEE, BMP #### [facility] ([id number]) [address] [place] [address] 11108 Eosinophils/100 WBC (Bld) 2.7 % Normal [facility] Comment on above: Performed By: #### C KALEE, BMP #### [facility] ([id number]) [address] [place] [address] Erythrocyte distribution width (RBC) [Ratio] 13.3 % Normal 11.5-15.0 [facility] Comment on above: Performed By: #### C KALEE, BMP #### [facility] ([id number]) [address] [place] [address] 11387 Hematocrit (Bld) [Volume fraction] 35.9 % Normal 35-47 [facility] Comment on above: Performed By: #### C KALEE, BMP #### [facility] ([id number]) [address] [place] [address] Hemoglobin (Bld) [Mass/Vol] 12.6 g/dL Normal 11.7-15.5 [facility] Comment on above: Performed By: #### C KALEE, BMP #### [facility] ([id number]) [address] [place] [address] Lymphocytes (Bld) [#/Vol] 1.1 10*3/uL Normal 1.0-3.5 [facility] Comment on above: Performed By: #### C KALEE, BMP #### [facility] ([id number]) [address] [place] [address]310 Lymphocytes/100 WBC (Bld) 15.8 % Normal [facility] Comment on above: Performed By: #### C KALEE, BMP #### [facility] ([id number]) [address] [place] [address] MCH (RBC) [Entitic mass] 32.0 pg Normal 27-34 [facility] Comment on above: Performed By: #### C KALEE, BMP #### [facility] ([id number]) [address] [place] [address]58[address] MCHC (RBC) [Mass/Vol] 35.1 g/dL Normal 32-36 [facility] Comment on above: Performed By: #### C KALEE, BMP #### [facility] ([id number]) [address] [place] [address] MCV (RBC) [Entitic vol] 91 fL Normal 80-100 [facility] Comment on above: Performed By: #### C KALEE, BMP #### [facility] ([id number]) [address] [place] [address] 67256 Monocytes (Bld) [#/Vol] 0.5 10*3/uL Normal 0-0.9 [facility] Comment on above: Performed By: #### C KALEE, BMP #### [facility] ([id number]) [address] [place] [address] 97321 Monocytes/100 WBC (Bld) 6.6 % Normal [facility] Comment on above: Performed By: #### C KALEE, BMP #### [facility] ([id number]) [address] [place] [address] 27882 Neutrophils/100 WBC (Bld) 74.6 % Normal [facility] Comment on above: Performed By: #### C KALEE, BMP #### [facility] ([id number]) [address] [place] [address] Platelet mean volume (Bld) [Entitic vol] 6.3 fL Low 7-12 [facility] Comment on above: Performed By: #### C BCA, BMP #### [facility] ([id number]) [address] [place] [address]202 Platelets (Bld) [#/Vol] 358 10*3/uL Normal 150-450 [facility] Comment on above: Performed By: #### C KALEE, BMP #### [facility] ([id number]) [address] [place] [address] 09661 RBC COUNT 3.95 X10E12/L Normal 3.80-5.20 [facility] Comment on above: Performed By: #### C KALEE, BMP #### [facility] ([id number]) [address] [place] [address] 10513 WBC (Bld) [#/Vol] 7.0 10*3/uL Normal 4.0-11.[address] [facility] Comment on above: Performed By: #### David GRANDA, BMP #### [facility] ([id number]) [address] [place] [address] Measles (Rubeola) Imon 11-09 Measles (Rubeola) Im 19.03 Normal >1.09 [facility] Comment on above: Result Comment: Interpretation: IMMUNE Reference Range: <0.91 Not Immune 0.91-1.09 Equivocal >1.09 Immune Performed By: #### R UBIFEDE, BRIJESH, VZI #### [employer] [address] [place], [place] [id number] Chargeback Analyst: Pedro Hand MD Mumps,Immun,Abon 11-09-2024 Mumps,Immun,Ab 5.15 Normal >1.09 [facility] Comment on above: Result Comment: Interpretation: IMMUNE Reference Range: <0.91 Not Immune 0.91-1.09 Equivocal >1.09 Immune Performed By: #### R UBI, FEDE, BRIJESH, VZI #### [employer] [address] [place], [place] [address] Chargeback Analyst: Pedro Hand MD VZ Immunityon 11-09-2024 VZ Immunity 3.41 Normal >1.09 [facility] Comment on above: Result Comment: Interpretation: IMMUNE Reference Range: <0.91 Not Immune 0.91-1.09 Equivocal >1.09 Immune Performed By: #### R UBI, FEDE, BRIJESH, VZI #### [employer] [address] [place], [place] [id number] Chargeback Analyst: Pedro Hand MD Rubella Ab, IgGon 11-08-2024 Rubella Ab, IgG 104.0 IU/mL [facility] Comment on above: Result Comment: <10 NON REACTIVE Negative for Anti-Rubella IgG >=10 REACTIVE Positive for Anti Rubella IgG The presence of IgG antibody to Rubella virus is an indication of previous exposure either by prior infection or vaccination. Performed By: #### R UBI, FEDE, BRIJESH, VZI #### [employer] [address] [place] [address] Chargeback Analyst: Pedro Hand MD Rubella antibody, IgGon 10-16 Rubella virus IgG IA Ql 104.0 IU/mL [facility] Comment on above: <10 NON REACTIVE Negative for Anti-Rubella IgG >=10 REACTIVE Positive for Anti Rubella IgG The presence of IgG antibody to Rubella virus is an indication of previous exposure either by prior infection or vaccination. [facility] LIVER PANELon 5 Albumin [Mass/Vol] 3.3 g/dL Low 3.4 - 5.0 g/dL [facility] ALBUMIN GLOBULIN RATIO 0.9 [facility] ALP [Catalytic activity/Vol] 86 U/L 46 - 116 U/L [facility] ALT [Catalytic activity/Vol] 22 U/L 14 - 59 U/L [facility] AST [Catalytic activity/Vol] 14 U/L Low 15 - 37 U/L [facility] Bilirubin [Mass/Vol] 0.4 mg/dL 0.2 - 1 .0 mg/dL [facility] Bilirubin.indirect [Mass/Vol] 0.1 mg/dL 0.0 - 0.2 mg/dL [facility] Globulin (S) [Mass/Vol] 3.7 g/dL [facility] Interpretation and review of laboratory results Abnormal [facility] Protein [Mass/Vol] 7 g/dL 6.4 - 8.2 g/dL [facility] MICROALB CREAT RATIO RAN DOMon 09-10-2024 CREATININE URINE RANDOM 245.77 mg/dL 20.00 - 300.00 mg/dL [facility] MICROALBUMIN URINE RANDOM <1.3 NINF - 30.0 mg/dL [facility] Urine Cultureon 09-10-2024 Bacteria identified Cx Nom (U) <9,000 colonies/ml mixed bacterial skin contaminants 2 Days PERFORMED BY: [facility] [address] [place] [address] PATHOLOGIST MARKETING COMPLIANCE MANAGER JOLANTA BOSCH M.D. Normal [facility] Comment on above: Performed By: #### C UU #### [facility] [address] PROF CHEM 8 (BAS METB)on Anion gap [Moles/Vol] 6.5 mmol/L Normal [facility] Comment on above: Performed By: #### B MP #### [facility] [address] [place] [address] [address] Hudson Guerrero Calcium [Mass/Vol] 9.3 mg/dL Normal 8.5-10.1 [facility] Comment on above: Performed By: #### B MP #### [facility] [address] [place] [address] [address] Hudson Guerrero Chloride [Moles/Vol] 102 mmol/L Normal 98-107 [facility] Comment on above: Performed By: #### B MP #### [facility] [address] [place] [address] [address] Hudson Guerrero CO2 [Moles/Vol] 32.5 mmol/L Critically high 21.0-32.0 [facility] Comment on above: Performed By: #### B MP #### [facility] [address] [place] [address] [address] Hudson Guerrero Creatinine [Mass/Vol] 0.64 mg/dL Normal 0.55-1.02 [facility] Comment on above: Performed By: #### B MP #### [facility] [address] [place] [address] [address] Hudson Guerrero EGFR-AF MARSHALLESE >60 Normal >=60 [facility] Comment on above: Performed By: #### B MP #### [facility] [address] [place] [address] [address] Hudson Guerrero EGFR-NON AF MARSHALLESE >60 Normal >=60 [facility] Comment on above: Performed By: #### B MP #### [facility] [address] [place] [address] [address] Hudson Guerrero Glucose [Mass/Vol] 100 mg/dL Normal 74-106 [facility] Comment on above: Performed By: #### B MP #### [facility] [address] [place] [address] [address] Hudson Guerrero Potassium [Moles/Vol] 4.0 mmol/L Normal 3.5-5.1 [facility] Comment on above: Performed By: #### B MP #### [facility] [address] [place] [address] Dr. Hudson Guerrero Sodium [Moles/Vol] 137 mmol/L Normal 136-145 [facility] Comment on above: Performed By: #### B MP #### [facility] [address] [place] [address] Dr. Hudson Guerrero Urea nitrogen [Mass/Vol] 18.0 mg/dL Normal 7.0-18.0 [facility] Comment on above: Performed By: #### B MP #### [facility] [address] [place] [address] Dr. Hudson Guerrero Urea nitrogen/Creatinine [Mass ratio] 28.1 mg/mg Normal [facility] Comment on above: Performed By: #### B MP #### [facility] [address] [place] [address] Dr. Hudson Guerrero MG MAMM SCREEN 3D ISABELLA CADon 10-28-2022 MG MAMM SCREEN 3D ISABELLA CAD Patient: ARIANNA LOZADA Exam Date: 10/28/2022 : 1965 Gender:F Ordering : GLENNY ANTUNEZ CNP Admission #: [id number] Family : DR HUMBERTO BARAKAT Order #: [id number] CLICK HERE TO VIEW EXAM RADIOLOGY REPORT [...] myeloma cancer at age 74. LOCATION: [facility] BREAST COMPOSITION: Heterogeneously dense,which may obscure small [...] MD on 10/29/2022 at 06:14 Normal [facility] MRI ANKLE RT WO CONon 2022 MRI [...] MEGAN ZAMBRANO Date: 2022-10-26 17:41 Normal [facility] GLYCOHEMOGLOBIN A1Con 2022 ADA RECOMMENDATION SEE BELOW Normal [facility] Comment on above: Result Comment: ADA RECOMMENDED LIMIT 4.0 - 6.0 ADA THERAPEUTIC TARGET < 7.0 ACTION SUGGESTED > 7.0 Performed By: #### A 1C ####[facility] [address] [place] [address]DrRehan Guerrero Glucose [Mass/Vol] 117 mg/dL Normal [facility] Comment on above: Performed By: #### A 1C ####[facility] [address] [place] [address]DrRehan Guerrero HbA1c (Bld) [Mass fraction] 5.7 % Normal 4.5-6.2 [facility] Comment on above: Performed By: #### A 1C ####[facility] [address] [place] [address]DrRehan Guerrero CBC AUTO DIFFon 06-28-2022 BASO # 0.0 103/ul Normal 0.0-0.1 [facility] Comment on above: Performed By: #### C BC #### [facility] [address] [address] [address] Hudson Guerrero Basophils/100 WBC (Bld) 0.4 % Normal 0.2-2.0 [facility] Comment on above: Performed By: #### C BC #### [facility] [address] [address] [address] Hudson Guerrero EO # 0.2 103/ul Normal 0.0-0.7 [facility] Comment on above: Performed By: #### C BC #### [facility] [address] [place] [address] Dr. Hudson Guerrero Eosinophils/100 WBC (Bld) 2.6 % Normal 0.9-7.0 [facility] Comment on above: Performed By: #### C BC #### [facility] [address] [place] [address] Dr. Hudson Guerrero Erythrocyte distribution width (RBC) [Ratio] 12.5 % Normal 11.0-15.0 [facility] Comment on above: Performed By: #### C BC #### [facility] [address] [place] [address] Dr. Hudson Guerrero Hematocrit (Bld) [Volume fraction] 36.6 % Normal 36.0-48.0 [facility] Comment on above: Performed By: #### C BC #### [facility] [address] [place] [address] Dr. Hudson Guerrero Hemoglobin (Bld) [Mass/Vol] 12.2 g/dL Normal 12.0-16.0 [facility] Comment on above: Performed By: #### C BC #### [facility] [address] [place] [address] Dr. Hudson Guerrero IG # 0.04 10e3/ul Critically high 0.00-0.03 [facility] Comment on above: Performed By: #### C BC #### [facility] [address] [place] [address] Dr. Hudson Guerrero IG % 0.5 % Normal 0.0-0.5 [facility] Comment on above: Performed By: #### C BC #### [facility] [address] [place] [address] Dr. Hudson Guerrero LYMPH # 1.5 103/ul Normal 1.2-3.8 [facility] Comment on above: Performed By: #### C BC #### [facility] [address] [place] [address] Dr. Hudson Guerrero Lymphocytes/100 WBC (Bld) 18.8 % Critically low 20.5-60.0 [facility] Comment on above: Performed By: #### C BC #### [facility] [address] [place] [address] Dr. Hudson Guerrero MANUAL DIFF REQ NO Normal [facility] Comment on above: Performed By: #### C BC #### [facility] [address] [place] [address] Dr. Hudson Guerrero MCH (RBC) [Entitic mass] 31.8 pg Normal 26.7-34.0 [facility] Comment on above: Performed By: #### C BC #### [facility] [address] [place] [address] Dr. Hudson Guerrero MCHC (RBC) [Mass/Vol] 33.3 g/dL Normal 29.9-35.2 [facility] Comment on above: Performed By: #### C BC #### [facility] [address] [place] [address] Dr. Hudson Guerrero MCV (RBC) [Entitic vol] 95.3 fL Normal 81.0-99.0 [facility] Comment on above: Performed By: #### C BC #### [facility] [address] [place] [address] Dr. Hudson Guerrero MONO # 0.5 103/ul Normal 0.3-0.8 [facility] Comment on above: Performed By: #### C BC #### [facility] [address] [place] [address] Dr. Hudson Guerrero Monocytes/100 WBC (Bld) 6.3 % Normal 1.7-12.0 [facility] Comment on above: Performed By: #### C BC #### [facility] [address] [place] [address] Dr. Hudson Guerrero NEUT # 5.6 103/ul Normal 1.4-6.5 [facility] Comment on above: Performed By: #### C BC #### [facility] [address] [place] [address] Dr. Hudson Guerrero Neutrophils/100 WBC (Bld) 71.4 % Normal 43.0-75.0 [facility] Comment on above: Performed By: #### C BC #### [facility] [address] [address] [address] Hudson Guerrero Platelet mean volume (Bld) [Entitic vol] 8.9 fL Critically low 9.5-13.5 [facility] Comment on above: Performed By: #### C BC #### [facility] [address] [address] [address] Hudson Guerrero PLT 292 103/ul Normal 150-450 [facility] Comment on above: Performed By: #### C BC #### [facility] [address] [address] [address] Hudson Guerrero RBC 3.84 106/ul Critically low 4.20-5.40 [facility] Comment on above: Performed By: #### C BC #### [facility] [address] [address] [address] Hudson Guerrero WBC 7.8 103/ul Normal 4.0-11.0 [facility] Comment on above: Performed By: #### C BC #### [facility] [address] [address] [address] Hudson Guerrero FREE T4on 06-28-2022 Free T4 [Mass/Vol] 0.91 ng/dL Normal 0.76-1.46 [facility] Comment on above: Performed By: #### F T4 ####[facility] [address] [place] [address]Dr. Hudson Guerrero GLYCOHEMOGLOBIN A1Con 2021 ADA RECOMMENDATION SEE BELOW Normal [facility] Comment on above: Result Comment: ADA RECOMMENDED LIMIT 4.0 - 6.0 ADA THERAPEUTIC TARGET < 7.0 ACTION SUGGESTED > 7.0 Performed By: #### A 1C #### [facility] [address] [address] [address] Hudson Guerrero Glucose [Mass/Vol] 134 mg/dL Normal [facility] Comment on above: Performed By: #### A 1C #### [facility] [address] [address] [address] Hudson Guerrero HbA1c (Bld) [Mass fraction] 6.3 % Critically high 4.5-6.2 [facility] Comment on above: Performed By: #### A 1C #### [facility] [address] [place], [place] [address] Dr. Hudson Guerrero LIPID PROFILEon 06-28-2022 CHOL-HDL RATIO NORM SEE BELOW Normal [facility] Comment on above: Result Comment: 3.3 - 4.4 LOW RISK 4.4 - 7.1 AVERAGE RISK 7.1 - 11.0 MODERATE RISK >11.0 HIGH RISK Performed By: #### C MP, TSH, LIPID ####[facility] [address] [place], [place] [address]Jv. Hudson Guerrero Cholesterol [Mass/Vol] 159 mg/dL Normal <=200 [facility] Comment on above: Performed By: #### C MP, TSH, LIPID ####[facility] [address] [place], [place] [address]Ni. Hudson Guerrero Cholesterol in HDL [Mass/Vol] 45 mg/dL Normal 40-60 [facility] Comment on above: Performed By: #### C MP, TSH, LIPID ####[facility] [address] [place], [place] [address]Tf. Hudson Guerrero Cholesterol in LDL [Mass/Vol] 82.6 mg/dL Normal [facility] Comment on above: Performed By: #### C MP, TSH, LIPID ####[facility] [address] [place], [place] [address]Uc. Hudson Guerrero Cholesterol.total/Ch olesterol in HDL [Mass ratio] 3.5 {ratio} Normal [facility] Comment on above: Performed By: #### C MP, TSH, LIPID ####[facility] [address] [place], [place] [address]Oa. Hudson Guerrero HDL NORMAL > or = 60 mg/dl - LOW CARDIOVASCULAR RISK <40 mg/dl - HIGH CARDIOVASCULAR RISK Normal [facility] Comment on above: Performed By: #### C MP, TSH, LIPID ####[facility] [address] [place], [place] [address]Lz. Hudson Guerrero LDL CALC NORMAL SEE BELOW Normal [facility] Comment on above: Result Comment: <100 mg/dl OPTIMAL 100 - 129 mg/dl NEAR OR ABOVE OPTIMAL 130 - 159 mg/dl BORDERLINE HIGH 160 - 189 mg/dl HIGH >190 mg/dl VERY HIGH Performed By: #### C MP, TSH, LIPID ####[facility] [address] [place] [address]Dr. Hudson Guerrero Triglyceride [Mass/Vol] 157 mg/dL Critically high <=150 [facility] Comment on above: Performed By: #### C MP, TSH, LIPID ####[facility] [address] [place] [address]Dr. Hudson Guerrero VLDL CALC 31.4 mg/dL Normal [facility] Comment on above: Performed By: #### C MP, TSH, LIPID ####[facility] [address] [place] [address]Dr. Hudson Guerrero PROF 14(COMP METB)on 06-28- 022 Albumin [Mass/Vol] 3.7 g/dL Normal 3.4-5.0 [facility] Comment on above: Performed By: #### C MP, TSH, LIPID ####[facility] [address] [place] [address]Dr. Hudson Guerrero Albumin/Globulin [Mass ratio] 0.9 {ratio} Normal [facility] Comment on above: Performed By: #### C MP, TSH, LIPID ####[facility] [address] [place] [address]Dr. Hudson Guerrero ALP [Catalytic activity/Vol] 88 U/L Normal 46-116 [facility] Comment on above: Performed By: #### C MP, TSH, LIPID ####[facility] [address] [place] [address]Dr. Hudson Guerrero ALT [Catalytic activity/Vol] 45 U/L Normal 14-59 [facility] Comment on above: Performed By: #### C MP, TSH, LIPID ####[facility] [address] [place] [address]Dr. Hudson Guerrero Anion gap [Moles/Vol] 14.1 mmol/L Normal [facility] Comment on above: Performed By: #### C MP, TSH, LIPID ####[facility] [address] [place] [id number]. Hudson Guerrero AST [Catalytic activity/Vol] 39 U/L Critically high 15-37 [facility] Comment on above: Performed By: #### C MP, TSH, LIPID ####[facility] [address] [place] [id number]. Hudson Guerrero Bilirubin [Mass/Vol] 0.5 mg/dL Normal 0.2-1.0 [facility] Comment on above: Performed By: #### C MP, TSH, LIPID ####[facility] [address] [place] [id number]. Hudson Guerrero Calcium [Mass/Vol] 9.3 mg/dL Normal 8.5-10.1 [facility] Comment on above: Performed By: #### C MP, TSH, LIPID ####[facility] [address] [place] [address]Dr. Hudson Guerrero Chloride [Moles/Vol] 106 mmol/L Normal 98-107 [facility] Comment on above: Performed By: #### C MP, TSH, LIPID ####[facility] [address] [place] [address]Dr. Hudson Guerrero CO2 [Moles/Vol] 28.5 mmol/L Normal 21.0-32.0 [facility] Comment on above: Performed By: #### C MP, TSH, LIPID ####[facility] [address] [place] [address]Dr. Hudson Guerrero Creatinine [Mass/Vol] 0.55 mg/dL Normal 0.55-1.02 [facility] Comment on above: Performed By: #### C MP, TSH, LIPID ####[facility] [address] [place] [id number]. Hudson Guerrero EGFR-AF MARSHALLESE >60 Normal >=60 [facility] Comment on above: Performed By: #### C MP, TSH, LIPID ####[facility] [address] [place] [address]Dr. Hudson Guerrero EGFR-NON AF MARSHALLESE >60 Normal >=60 [facility] Comment on above: Performed By: #### C MP, TSH, LIPID ####[facility] [address] [place] [address]Dr. Hudson Guerrero Globulin (S) [Mass/Vol] 4.0 g/dL Normal [facility] Comment on above: Performed By: #### C MP, TSH, LIPID ####[facility] [address] [place] [address]Dr. Hudson Guerrero Glucose [Mass/Vol] 115 mg/dL Critically high 74-106 [facility] Comment on above: Performed By: #### C MP, TSH, LIPID ####[facility] [address] [place] [address]Dr. Hudson Guerrero Potassium [Moles/Vol] 4.6 mmol/L Normal 3.5-5.1 [facility] Comment on above: Performed By: #### C MP, TSH, LIPID ####[facility] [address] [place], [place] [address]Dr. Hudson Guerrero Protein [Mass/Vol] 7.7 g/dL Normal 6.4-8.2 [facility] Comment on above: Performed By: #### C MP, TSH, LIPID ####[facility] [address] [place], [place] [address]Dr. Hudson Guerrero Sodium [Moles/Vol] 144 mmol/L Normal 136-145 [facility] Comment on above: Performed By: #### C MP, TSH, LIPID ####[facility] [address] [place], [place] [address]Dr. Hudson Guerrero Urea nitrogen [Mass/Vol] 16.0 mg/dL Normal 7.0-18.0 [facility] Comment on above: Performed By: #### C MP, TSH, LIPID ####[facility] [address] [place], [place] [address]Dr. Hudson Guerrero Urea nitrogen/Creatinine [Mass ratio] 29.1 mg/mg Normal [facility] Comment on above: Performed By: #### C MP, TSH, LIPID ####[facility] [address] [place], [place] [address]DrRehan Guerrero TSHon 06-28-2022 TSH 1.163 uIU/mL Normal 0.358-3.740 [facility] Comment on above: Performed By: #### C MP, TSH, LIPID ####[facility] [address] [place] [address]Dr. Hudson Guerrero UA RANDOM W/MICROSCOPICon BACTERIA SMALL Abnormal NONE SEEN [facility] Comment on above: Performed By: #### U AMIC #### [facility] [address] [address] [address] Hudson Guerrero Bilirubin Ql (U) Negative Normal NEGATIVE [facility] Comment on above: Performed By: #### U AMIC #### [facility] [address] [place] [address] Dr. Hudson Guerrero CAST NONE SEEN Normal NONE SEEN [facility] Comment on above: Performed By: #### U AMIC #### [facility] [address] [place] [address] Dr. Hudson Guerrero Clarity (U) CLEAR Normal CLEAR [facility] Comment on above: Performed By: #### U AMIC #### [facility] [address] [address] [address] Hudson Guerrero Color (U) LT. YELLOW Normal YELLOW [facility] Comment on above: Performed By: #### U AMIC #### [facility] [address] [place] [address] Dr. Hudson Guerrero Crystals LM Nom (Urine sed) NONE SEEN Normal NONE SEEN [facility] Comment on above: Performed By: #### U AMIC #### [facility] [address] [address] [address] Hudson Guerrero Epithelial cells LM Ql (Urine sed) FEW Abnormal NONE SEEN /RARE [facility] Comment on above: Performed By: #### U AMIC #### [facility] [address] [place] [address] Dr. Hudson Guerrero Glucose Ql (U) Negative Normal NEGATIVE [facility] Comment on above: Performed By: #### U AMIC #### [facility] [address] [address] [address] Hudson Guerrero Hemoglobin Ql (U) Negative Normal NEGATIVE [facility] Comment on above: Performed By: #### U AMIC #### [facility] [address] [address] [address] Hudson Guerrero Ketones Ql (U) Negative Normal NEGATIVE [facility] Comment on above: Performed By: #### U AMIC #### [facility] [address] [address] [address] Hudson Guerrero LEUKOCYTES SMALL Abnormal NEGATIVE [facility] Comment on above: Performed By: #### U AMIC #### [facility] [address] [place] [address] Dr. Hudson Guerrero MUCOUS NONE SEEN Normal NONE SEEN [facility] Comment on above: Performed By: #### U AMIC #### [facility] [address] [place] [address] Dr. Hudson Guerrero Nitrite Ql (U) Negative Normal NEGATIVE [facility] Comment on above: Performed By: #### U AMIC #### [facility] [address] [place] [address] Dr. Hudson Guerrero pH (U) 6.0 [pH] Normal 5-9 [facility] Comment on above: Performed By: #### U AMIC #### [facility] [address] [place] [address] Dr. Hudson Geurrero RBC NONE SEEN Abnormal 0-2 [facility] Comment on above: Performed By: #### U AMIC #### [facility] [address] [place] [address] Dr. Hudson Guerrero SPEC GRAVITY 1.025 Normal 1.005-<=1.025 [facility] Comment on above: Performed By: #### U AMIC #### [facility] [address] [place] [address] Dr. Hudson Guerrero UA PROTEIN Negative Normal NEGATIVE/ TRACE [facility] Comment on above: Performed By: #### U AMIC #### [facility] [address] [place] [address] Dr. Hudson Guerrero Urobilinogen Qn (U) 0.2 {Andi'U}/dL Normal 0.2 - 1. 0 [facility] Comment on above: Performed By: #### U AMIC #### [facility] [address] [place] [address] Dr. Hudson Guerrero WBC 2-5 Abnormal NONE SEEN [facility] Comment on above: Performed By: #### U AMIC #### [facility] [address] [place] [address] Dr. Hudson Guerrero TSHon 01-24-2022 TSH 2.622 uIU/mL Normal 0.358-3.740 [facility] Comment on above: Performed By: #### T SH #### [facility] [address] [place] [address] Dr. Hudson Guerrero TSH RANGE SEE BELOW Normal [facility] Comment on above: Result Comment: <0.3 4 UIU/ml HYPERTHYROID 0.34-5.60 UIU/ml EUTHYROID >5.60 UIU/ml HYPOTHYROID Performed By: #### T SH #### [facility] [address] [place] [address] Dr. Hudson Guerrero Vital Signs Date Time Vital Sign Value Performing Clinician Viridianai lity 03-06-2025 15:49-0400 Body mass index (BMI) [Ratio] 42.66 kg/m2 Bijal Antunez CHAPLAIN RESIDENT Work Phone: [facility] 03-06-2025 15:49-0400 Body temperature 98.49 [degF] Bijal Antunez CHAPLAIN RESIDENT Work Phone: [facility] 03-06-2025 15:49-0400 Body weight 123.56 kg Bijal Antunez CHAPLAIN RESIDENT Work Phone: [facility] 03-06-2025 15:49-0400 Diastolic blood pressure 82 mm[Hg] Bijal Antunez CHAPLAIN RESIDENT Work Phone: [facility] 03-06-2025 15:49-0400 Heart rate 75 /min Bijal Antunez CHAPLAIN RESIDENT Work Phone: [facility] 03-06-2025 15:49-0400 Respiratory rate 20 /min Bijal Trinidadholz CHAPLAIN RESIDENT Work Phone: [facility] 03-06-2025 15:49-0400 SaO2% (BldA) [Mass fraction] 96 % Bijal Marlonhholz CHAPLAIN RESIDENT Work Phone: [facility] 03-06-2025 15:49-0400 Systolic blood pressure 138 mm[Hg] Bijal Aichholz CHAPLAIN RESIDENT Work Phone: [facility] 02-15-2025 08:43-0400 Body mass index (BMI) [Ratio] 42.48 kg/m2 Bijal Aichholz CHAPLAIN RESIDENT Work Phone: [facility] 02-15-2025 08:43-0400 Body temperature 97.59 [degF] Bijal Marlonhholz CHAPLAIN RESIDENT Work Phone: [facility] 02-15-2025 08:43-0400 Body weight 123.02 kg Bijal Aichholz CHAPLAIN RESIDENT Work Phone: [facility] 02-15-2025 08:43-0400 Diastolic blood pressure 82 mm[Hg] Bijal Aichholz CHAPLAIN RESIDENT Work Phone: [facility] 02-15-2025 08:43-0400 Heart rate 86 /min Bijal Aichholz CHAPLAIN RESIDENT Work Phone: [facility] 02-15-2025 08:43-0400 Respiratory rate 18 /min Bijal Aichholz CHAPLAIN RESIDENT Work Phone: [facility] 02-15-2025 08:43-0400 SaO2% (BldA) [Mass fraction] 95 % Bijal Aichholz CHAPLAIN RESIDENT Work Phone: [facility] 02-15-2025 08:43-0400 Systolic blood pressure 120 mm[Hg] Bijal Aichholz CHAPLAIN RESIDENT Work Phone: [facility] 11-15-2024 15:01-0500 Body height 170.2 cm Bijal Aichholz CHAPLAIN RESIDENT Work Phone: [facility] 11-15-2024 15:01-0500 Body mass index (BMI) [Ratio] 44.04 kg/m2 Bijal Marinaz CHAPLAIN RESIDENT Work Phone: [facility] 11-15-2024 15:01-0500 Body temperature 98.4 [degF] Bijal Marinaz CHAPLAIN RESIDENT Work Phone: [facility] 11-15-2024 15:01-0500 Body weight 127.55 kg Bijalcesar Abdiholz CHAPLAIN RESIDENT Work Phone: [facility] 11-15-2024 15:01-0500 Diastolic blood pressure 84 mm[Hg] Bijal Trinidadholz CHAPLAIN RESIDENT Work Phone: [facility] 11-15-2024 15:01-0500 Heart rate 86 /min Bijal Marinaz CHAPLAIN RESIDENT Work Phone: [facility] 11-15-2024 15:01-0500 Respiratory rate 18 /min Bijal Marinaz CHAPLAIN RESIDENT Work Phone: [facility] 11-15-2024 15:01-0500 SaO2% (BldA) [Mass fraction] 96 % Bijal Salasz CHAPLAIN RESIDENT Work Phone: [facility] 11-15-2024 15:01-0500 Systolic blood pressure 120 mm[Hg] Bijal Abdiholz CHAPLAIN RESIDENT Work Phone: [facility] 08-22-2024 10:07-0500 Body height 170.2 cm Humberto Barakat DO Work Phone: [facility] 08-22-2024 10:07-0500 Body mass index (BMI) [Ratio] 43.85 kg/m2 Humberto Barakat DO Work Phone: [facility] 08-22-2024 10:07-0500 Body weight 127.01 kg Humberto Barakat DO Work Phone: [facility] 08-22-2024 10:07-0500 Diastolic blood pressure 78 mm[Hg] Humberto Barakat DO Work Phone: [facility] 08-22-2024 10:07-0500 Systolic blood pressure 134 mm[Hg] Humberto Barakat DO Work Phone: [facility] 08-17-2024 15:46-0500 Body height 170.2 cm Bijal Masonmalgorzatajasbirnoy CHAPLAIN RESIDENT Work Phone: [facility] 08-17-2024 15:46-0500 Body mass index (BMI) [Ratio] 43.89 kg/m2 Bijalcesar Masonkermitz CHAPLAIN RESIDENT Work Phone: [facility] 08-17-2024 15:46-0500 Body temperature 98.1 [degF] Bijalcesar Masonkermitz CHAPLAIN RESIDENT Work Phone: [facility] 08-17-2024 15:46-0500 Body weight 127.1 kg Bijal Abdijasbirz CHAPLAIN RESIDENT Work Phone: [facility] 08-17-2024 15:46-0500 Diastolic blood pressure 86 mm[Hg] Bijal Masonkermitz CHAPLAIN RESIDENT Work Phone: [facility] 08-17-2024 15:46-0500 Heart rate 97 /min Bijalcesar Masonmalgorzataholz CHAPLAIN RESIDENT Work Phone: [facility] 08-17-2024 15:46-0500 Respiratory rate 18 /min Bijalcesar Marinaz CHAPLAIN RESIDENT Work Phone: [facility] 08-17-2024 15:46-0500 SaO2% (BldA) [Mass fraction] 98 % Bijalcesar Masonkermitz CHAPLAIN RESIDENT Work Phone: [facility] 08-17-2024 15:46-0500 Systolic blood pressure 132 mm[Hg] Bijal Trinidadholz CHAPLAIN RESIDENT Work Phone: [facility] 05-25-2024 16:07-0400 Body height 170.2 cm Bijalcesar Masonkermitz CHAPLAIN RESIDENT Work Phone: [facility] 05-25-2024 16:07-0400 Body mass index (BMI) [Ratio] 45.11 kg/m2 Bijal Salasz CHAPLAIN RESIDENT Work Phone: [facility] 05-25-2024 16:07-0400 Body temperature 97.81 [degF] Bijal Antunez CHAPLAIN RESIDENT Work Phone: [facility] 05-25-2024 16:07-0400 Body weight 130.64 kg Bijal Antunez CHAPLAIN RESIDENT Work Phone: [facility] 05-25-2024 16:07-0400 Diastolic blood pressure 80 mm[Hg] Bijal Marinaz CHAPLAIN RESIDENT Work Phone: [facility] 05-25-2024 16:07-0400 Heart rate 79 /min Bijal Salasz CHAPLAIN RESIDENT Work Phone: [facility] 05-25-2024 16:07-0400 Respiratory rate 20 /min Bijal Marinaz CHAPLAIN RESIDENT Work Phone: [facility] 05-25-2024 16:07-0400 SaO2% (BldA) [Mass fraction] 97 % Bijal Marinaz CHAPLAIN RESIDENT Work Phone: [facility] 05-25-2024 16:07-0400 Systolic blood pressure 122 mm[Hg] Bijal Marinaz CHAPLAIN RESIDENT Work Phone: [facility] Healthcare Encounters Encounter Date Encounter Type Care Provider Facility Start: 03-10-2025 End: 03-10-2025 Clinisync Result Encounter Bijal Antunez CHAPLAIN RESIDENT Work Phone: [facility] External Department Unsolicited Start: 03-10-2025 End: 03-10-2025 Clinisync Result Encounter Bijal Antunez CHAPLAIN RESIDENT Work Phone: [facility] External Department Unsolicited Start: 03-06-2025 End: 03-06-2025 Office outpatient visit 25 minutes Bijal Antunez CHAPLAIN RESIDENT Work Phone: [facility] Comment on above: Postprandial RUQ bethany n (Primary Dx); Abnormal gallbladder ultrasound; Mass of gallbladder; Class 3 severe obesity due to excess calories without serious comorbidity with body mass index (BMI) of 40.0 to 44.9 in adult ([facility]) Start: 03-06-2025 End: 03-06-2025 ambulatory BIJAL ANTUNEZ Not Available Start: 03-03-2025 End: 03-03-2025 Orders Only Bijal Antunez CHAPLAIN RESIDENT Work Phone: [facility] Comment on above: Mass of gallbladder (Primary Dx) Postprandial RUQ bethany n (Primary Dx); Mass of gallbladder Start: 03-02-2025 End: 03-02-2025 Orders Only Bijal Antunez CHAPLAIN RESIDENT Work Phone: [facility] Comment on above: Postprandial RUQ bethany n (Primary Dx); Abnormal gallbladder ultrasound Start: 02-23-2025 End: 02-23-2025 [facility]: [facility] Start: 02-23-2025 End: 02-23-2025 [facility]amboo [facility] Work Phone: [facility] Start: 02-23-2025 End: 02-23-2025 Office outpatient new 30 minutes [facility] Work Phone: [facility] Comment on above: Melanocytic nevus of upper extremity, unspecified laterality (Primary Dx); Melanocytic nevus of face, other location; Melanocytic nevus of trunk; Lentigo simplex; Seborrheic keratosis; Acrochordon Start: 02-23-2025 End: 02-23-2025 ambulatory YANIRA NORTHEIM Not Available Start: 02-15-2025 End: 02-15-2025 Bamboo flowsheet Bijal Antunez CHAPLAIN RESIDENT Work Phone: [facility] Start: 02-15-2025 End: 02-15-2025 Bamboo flowsheet Bijal Antunez CHAPLAIN RESIDENT Work Phone: [facility] Start: 02-15-2025 End: 02-15-2025 ambulatory BIJAL ANTUNEZ Not Available Start: 02-15-2025 End: 02-15-2025 Office outpatient visit 25 minutes Bijal Antunez CHAPLAIN RESIDENT Work Phone: [facility] Comment on above: Primary hypertension (CMS/HCC) [...] behavior Start: 02-08-2025 End: 02-08-2025 Refill Bijal Antunez CHAPLAIN RESIDENT Work Phone: [facility] Comment on above: Rash and other nonsp ecific skin eruption Start: 02-05-2025 End: 02-06-2025 Refill Bijalcesar Antunez CHAPLAIN RESIDENT Work Phone: [facility] Comment on above: Other chronic pain Start: 01-12-2025 End: 01-12-2025 Clinisync Result Encounter Humberto Barakat DO Work Phone: [facility] External Department Unsolicited Start: 01-12-2025 End: 01-12-2025 Clinisync Result Encounter Humberto Barakat DO Work Phone: [facility] External Department Unsolicited Start: 12-30-2024 End: 12-30-2024 Refill Bijal Harmony CHAPLAIN RESIDENT Work Phone: [facility] Comment on above: Primary hypertension (CMS/HCC) (Primary Dx) Start: 12-29-2024 End: 12-29-2024 Emergency department patient visit BIJAL ANTUNEZ [facility] Start: 11-15-2024 End: 11-15-2024 Office outpatient visit 25 minutes Bijal Antunez CHAPLAIN RESIDENT Work Phone: [facility] Comment on above: Primary hypertension (CMS/HCC) (Primary Dx); Elevated liver function tests; Bilateral lower extremity edema; Acquired hypothyroidism (CMS/HCC); Class 3 severe obesity due to excess calories without serious comorbidity with body mass index (BMI) of 40.0 to 44.9 in adult (CMS/HCC); Postprandial RUQ pain Start: 11-15-2024 End: 11-15-2024 ambulatory BIJAL HARMONY Not Available Start: 11-15-2024 End: 11-15-2024 Bamboo flowsheet Bijal Harmony CHAPLAIN RESIDENT Work Phone: [facility] Start: 11-15-2024 End: 11-15-2024 Bamboo flowsheet Bijal Harmony CHAPLAIN RESIDENT Work Phone: [facility] Start: 11-08-2024 End: 11-08-2024 ambulatory SHER[facility] COLE [facility] Start: 11-08-2024 End: 11-08-2024 Subsequent hospital visit by physician [facility] Start: 09-26-2024 End: 09-26-2024 Clinisync Result Encounter Bijal Antunez CHAPLAIN RESIDENT Work Phone: [facility] External Department Unsolicited Start: 09-26-2024 End: 09-26-2024 Clinisync Result Encounter Bijal Harmony CHAPLAIN RESIDENT Work Phone: [facility] External Department Unsolicited Start: 09-19-2024 End: 09-19-2024 Refill Bijal Harmony CHAPLAIN RESIDENT Work Phone: [facility] Comment on above: UTI symptoms (Primar y Dx) Start: 09-14-2024 End: 09-14-2024 Orders Only Bijal Antunez CHAPLAIN RESIDENT Work Phone: [facility] Comment on above: Elevated liver funct ion tests (Primary Dx) Start: 09-10-2024 End: 09-10-2024 Clinisync Result Encounter Bijal Harmony CHAPLAIN RESIDENT Work Phone: [facility] External Department Unsolicited Start: 09-10-2024 End: 09-10-2024 Clinisync Result Encounter Bijal Antunez CHAPLAIN RESIDENT Work Phone: [facility] External Department Unsolicited Start: 09-10-2024 End: 09-10-2024 ambulatory NON STAFF Facility:[facility] Start: 09-08-2024 End: 09-08-2024 Refill Bijal Antunez CHAPLAIN RESIDENT Work Phone: [facility] Comment on above: Class 3 severe obesi ty due to excess calories without serious comorbidity with body mass index (BMI) of 40.0 to 44.9 in adult (CMS/HCC) (Primary Dx) Start: 08-22-2024 End: 08-22-2024 Patient encounter status Humberto Barakat DO Work Phone: [facility] Start: 08-22-2024 End: 08-22-2024 Periodic preventive med est patient 40-64yrs Humberto Cielo Barakat DO Work Phone: [facility] Comment on above: Encounter for gyneco logical examination without abnormal finding; Screening for malignant neoplasm of cervix; Breast cancer screening by mammogram; Hormone replacement therapy Start: 08-22-2024 End: 08-22-2024 ambulatory HUMBERTO BARAKAT Not Available Start: 08-17-2024 End: 08-17-2024 ambulatory BIJAL ANTUNEZ Not Available Start: 08-17-2024 End: 08-17-2024 Periodic preventive med est patient 40-64yrs Bijal Antunez CHAPLAIN RESIDENT Work Phone: [facility] Comment on above: Encounter for [...] 08-17-2024 End: 08-17-2024 Bamboo flowsheet Bijal Antunez CHAPLAIN RESIDENT Work Phone: [facility] Start: 08-17-2024 End: 08-17-2024 Bamboo flowsheet Bijal Antunez CHAPLAIN RESIDENT Work Phone: [facility] Start: 08-17-2024 End: 08-17-2024 Patient encounter status Bijal Antunez CHAPLAIN RESIDENT Work Phone: [facility] Healthcare Start: 08-10-2024 End: 08-10-2024 Refill Bijal Antunez CHAPLAIN RESIDENT Work Phone: [facility] Comment on [...] Office outpatient visit 25 minutes Bijal Antunez CHAPLAIN RESIDENT Work Phone: [facility] Comment on above: Plantar fasciitis, r ight (Primary Dx); Primary hypertension ([facility]); Class 3 severe obesity due to excess calories without serious comorbidity with body mass index (BMI) of 45.0 to 49.9 in adult ([facility]); Bilateral lower extremity edema Start: 05-25-2024 End: 05-25-2024 ambulatory BIJAL HARMONY Not Available Start: 05-25-2024 End: 05-25-2024 Bamboo flowsheet Bijal Antunez CHAPLAIN RESIDENT Work Phone: [facility] Start: 05-25-2024 End: 05-25-2024 Bamboo flowsheet Bijal Antunez CHAPLAIN RESIDENT Work Phone: [facility] Start: 03-22-2024 End: 03-22-2024 ambulatory BIJAL HARMONY Not Available Start: 03-15-2024 End: 03-15-2024 ambulatory DESTINY H TIMMIS Not Available Start: 01-17-2023 End: 01-18-2023 ambulatory FITNESS AND WELLNESS COORDINATOR BIJAL HARMONY Facility:[facility] Start: 10-28-2022 End: 10-29-2022 ambulatory FITNESS AND WELLNESS COORDINATOR BIJAL HARMONY Facility:[facility] Start: 10-24-2022 End: 10-25-2022 ambulatory FITNESS AND WELLNESS COORDINATOR BIJAL HARMONY Facility:[facility] Start: 10-14-2022 End: 10-15-2022 ambulatory GLENNY ANTUNEZ Facility:[facility] Start: 10-09-2022 End: 10-10-2022 ambulatory FITNESS AND WELLNESS COORDINATOR BIJALCesar ANTUNEZ Facility:[facility] Start: 08-13-2022 End: 08-14-2022 ambulatory FITNESS AND WELLNESS COORDINATOR BIJAL HARMONY Facility:[facility] Start: 07-04-2022 ambulatory FAROOQ [...] Date Procedure Procedure Detail Performing Clinician Start: 03-10-2025 Us soft tissue head & neck real time imge docm Bijal Marlonmalgorzataluan CHAPLAIN RESIDENT Work Phone: Start: 01-12-2025 MM TOMOSYNTHESIS SCR EENING BI Humberto Barakat DO Work Phone: Start: 01-12-2025 Mammography Humberto rincon DO Work Phone: Start: 11-08-2024 Antibody rubreba Cole CONFERENCE SERVICES MANAGER - [facility] Work Phone: Start: 09-26-2024 [facility] LIVER PANEL Bijal leung CHAPLAIN RESIDENT Work Phone: Start: 09-10-2024 [facility] MICROALB CREAT R ATIO RANDOM Bijal Abdiluan CHAPLAIN RESIDENT Work Phone: Start: 12-02-2023 Mammography Bijal hadaddnoy CHAPLAIN RESIDENT Work Phone: Start: 01-12-2019 Colonoscopy Bijal eddy CHAPLAIN RESIDENT Work Phone: Plan of Treatment Date Care Activity Detail Author Start: 01-12-2029 Screening for malign ant neoplasm of colon [facility] Healthcare Start: 02-22-2026 End: 02-22-2026 Patient encounter procedure 02/22/2026 11:10 AM EDT Office Visit [facility] [address] [place] [address] Yanira Taylor PA [address] [place] [phone] [facility] Start: 01-12-2026 Screening for malign ant neoplasm of breast Mammogram [facility] Healthcare Start: 05-18-2025 End: 05-18-2025 Patient encounter procedure 05/18/2025 8:40 AM EDT Office Visit [facility] [address] [place] [phone] Bijal Antunez, CHAPLAIN RESIDENT [address] [place] [phone] [facility] Start: 03-06-2025 End: 03-06-2025 Patient encounter procedure 03/06/2025 3:40 PM EDT Office Visit [facility] [address] [place] [address] Bijal Antunez, CHAPLAIN RESIDENT [address] [place] [phone] [facility] Start: 03-03-2025 End: 03-03-2026 MR Abdomen WO and W contrast IV MR abdomen w and wo contrast Imaging Routine Mass of gallbladder Expected: 03/03/2025 (Approximate), Expires: 03/03/2026 [facility] Healthcare Work Phone: Comment on above: Expected: 03/03/2025 (Approximate), Expires: 03/03/2026 Start: 02-23-2025 End: 02-23-2025 Patient encounter procedure 02/23/2025 11:10 AM EDT Office Visit [facility] [address] [place] [address] Yanira Taylor PA [address] [place] [address] Neoplasm of uncertain behavior [facility] Comment on above: Neoplasm of uncertai n behavior Start: 02-15-2025 End: 02-15-2026 25-hydroxyvitamin D3 [Mass/volume] in Serum or Plasma Vitamin D 25 hydroxy Lab Routine Vitamin D deficiency Expected: 02/15/2025 (Approximate), Expires: 02/15/2026 [facility] Comment on above: Expected: 02/15/2025 (Approximate), Expires: 02/15/2026 Start: 02-15-2025 End: 02-15-2026 Comprehensive metabolic 2000 panel - Serum or Plasma Comprehensive metabolic panel Lab Routine Mixed hyperlipidemia (CMS/HCC) Expected: 02/15/2025 (Approximate), Expires: 02/15/2026 [facility] Comment on above: Expected: 02/15/2025 (Approximate), Expires: 02/15/2026 Start: 02-15-2025 End: 02-15-2026 Lipid 1996 panel - Serum or Plasma Lipid panel Lab Routine Mixed hyperlipidemia (CMS/HCC) Expected: 02/15/2025 (Approximate), Expires: 02/15/2026 [facility] Healthcare Work Phone: Comment on above: Expected: 02/15/2025 (Approximate), Expires: 02/15/2026 Start: 02-15-2025 End: 02-15-2026 Thyrotropin [Units/volume] in Serum or Plasma TSH Lab Routine Acquired hypothyroidism (CMS/HCC) Expected: 02/15/2025 (Approximate), Expires: 02/15/2026 [facility] Comment on above: Expected: 02/15/2025 (Approximate), Expires: 02/15/2026 Start: 02-15-2025 End: 02-15-2026 Thyroxine (T4) free [Mass/volume] in Serum or Plasma T4, free Lab Routine Acquired hypothyroidism (CMS/HCC) Expected: 02/15/2025 (Approximate), Expires: 02/15/2026 [facility] Comment on above: Expected: 02/15/2025 (Approximate), Expires: 02/15/2026 Start: 02-15-2025 End: 02-15-2026 US Thyroid gland US thyroid Imaging Routine Thyroid nodule (CMS/HCC) Expected: 02/15/2025 (Approximate), Expires: 02/15/2026 [facility] Comment on above: Expected: 02/15/2025 (Approximate), Expires: 02/15/2026 Start: 02-15-2025 End: 02-15-2025 Patient encounter procedure 02/15/2025 8:40 AM EDT Office Visit [facility] [address] [place] [address] Bijal Antunez, CHAPLAIN RESIDENT [address] [place] [address] [facility] Start: 12-01-2024 Screening for malign ant neoplasm of breast Mammogram [facility] Start: 11-16-2024 End: 11-16-2024 Patient encounter procedure 11/16/2024 3:40 PM EST Office Visit [facility] [address] [place] [address] Bijal Atnunez, CHAPLAIN RESIDENT [address] [place] [address] [facility] Start: 11-15-2024 End: 11-15-2024 Patient encounter procedure 11/15/2024 3:00 PM EST Office Visit [facility] [address] [place] [address] Bijal Antunez, SIENNA [address] [place] [address] Primary hypertension (CMS/HCC) (Primary Dx); Elevated liver function tests; Bilateral lower extremity edema; Acquired hypothyroidism (CMS/HCC); Class 3 severe obesity due to excess calories without serious comorbidity with body mass index (BMI) of 40.0 to 44.9 in adult (CMS/HCC) [facility] Comment on above: Primary hypertension (CMS/HCC) (Primary Dx); Elevated liver function tests; Bilateral lower extremity edema; Acquired hypothyroidism (CMS/HCC); Class 3 severe obesity due to excess calories without serious comorbidity with body mass index (BMI) of 40.0 to 44.9 in adult (CMS/HCC) Start: 11-15-2024 End: 11-15-2025 US Gallbladder US gallbladder Imaging Routine Postprandial RUQ pain Expected: 11/15/2024, Expires: 11/15/2025 [facility] Work Phone: Comment on above: Expected: 11/15/2024 , Expires: 11/15/2025 Start: 09-28-2024 End: 09-14-2025 Hepatic function 2000 panel - Serum or Plasma Hepatic function panel Lab Routine Elevated liver function tests Expected: 09/28/2024 (Approximate), Expires: 09/14/2025 [facility] Work Phone: Comment on above: Expected: 09/28/2024 (Approximate), Expires: 09/14/2025 Start: 08-22-2024 End: 10-23-2025 DBT Breast - bilateral screening Bilateral screening mammogram with tomosynthesis Imaging Routine Breast cancer screening by mammogram Expected: 08/22/2024, Expires: 10/23/2025 [facility] Comment on above: Expected: 08/22/2024 , Expires: 10/23/2025 Start: 08-22-2024 End: 08-22-2024 Patient encounter procedure 08/22/2024 10:00 AM EST Office Visit [facility] [address] [place] [address] Humberto Barakat, DO [address] [place] [address] [facility] Start: 08-17-2024 End: 08-17-2024 Patient encounter procedure 08/17/2024 3:40 PM EST Office Visit [facility] [address] [place] [phone] Bijal Antunez CHAPLAIN RESIDENT [address] [place] [address] [facility] Start: 08-17-2024 End: 08-17-2025 CBC W Auto Differential panel - Blood CBC and differential Lab Routine Encounter For Adult Wellness Visit Expected: 08/17/2024 (Approximate), Expires: 08/17/2025 [facility] Healthcare Work Phone: Comment on above: Expected: 08/17/2024 (Approximate), Expires: 08/17/2025 Start: 08-17-2024 End: 08-17-2025 Comprehensive metabolic 2000 panel - Serum or Plasma Comprehensive metabolic panel Lab Routine Encounter for adult wellness visit Expected: 08/17/2024 (Approximate), Expires: 08/17/2025 [facility] Healthcare Comment on above: Expected: 08/17/2024 (Approximate), Expires: 08/17/2025 Start: 08-17-2024 End: 08-17-2025 Lipid 1996 panel - Serum or Plasma Lipid panel Lab Routine Encounter for adult wellness visit Expected: 08/17/2024 (Approximate), Expires: 08/17/2025 [facility] Healthcare Comment on above: Expected: 08/17/2024 (Approximate), Expires: 08/17/2025 Start: 08-17-2024 End: 08-17-2025 Microalbumin/Creatinine panel in random Urine Microalbumin / creatinine, urine ratio Lab Routine Encounter for adult wellness visit Expected: 08/17/2024 (Approximate), Expires: 08/17/2025 [facility] Healthcare Comment on above: Expected: 08/17/2024 (Approximate), Expires: 08/17/2025 Start: 08-17-2024 End: 08-17-2025 Thyrotropin [Units/volume] in Serum or Plasma TSH Lab Routine Encounter for adult wellness visit Expected: 08/17/2024 (Approximate), Expires: 08/17/2025 [facility] Comment on above: Expected: 08/17/2024 (Approximate), Expires: 08/17/2025 Start: 08-17-2024 End: 08-17-2025 Thyroxine (T4) free [Mass/volume] in Serum or Plasma T4, free Lab Routine Encounter for adult wellness visit Expected: 08/17/2024 (Approximate), Expires: 08/17/2025 [facility] Comment on above: Expected: 08/17/2024 (Approximate), Expires: 08/17/2025 Start: 08-17-2024 End: 08-17-2025 Urinalysis complete panel - Urine Urinalysis with reflex microscopic (clean catch) Lab Routine Encounter for adult wellness visit Expected: 08/17/2024 (Approximate), Expires: 08/17/2025 [facility] Comment on above: Expected: 08/17/2024 (Approximate), Expires: 08/17/2025 Start: 05-25-2024 End: 05-25-2024 Patient encounter procedure 05/25/2024 3:40 PM EDT Office Visit [facility] [address] [place] [phone] Bijal Antunez, SIENNA [address] [place] [address] Arrived [facility] Comment on above: Arrived Start: 1965 Screening for malign ant neoplasm of colon [facility] IGP, APT HPV,RFX 16/18,45 IGP, APT HPV,RFX 16/18,45 Lab Routine Screening for malignant neoplasm of cervix Ordered: 08/22/2024 [facility] Work Phone: Comment on above: Ordered: 08/22/2024 End: 11-08-2024 Mumps Antibody, IgG [facility] Comment on above: Once for 1 Occurrenc es starting 11/08/2024 until 11/08/2024 End: 11-08-2024 Rubeola Antibody, IgG Bon [facility] Work Phone: Comment on above: Once for 1 Occurrenc es starting 11/08/2024 until 11/08/2024 End: 11-08-2024 Varicella Zoster Antibody, IgG Bon [facility] Comment on above: Once for 1 Occurrenc es starting 11/08/2024 until 11/08/2024 Payers Date Payer Category Payer Unknown [id number] 2024 Self-pay 2018 [employer] [id number] 2018 Unknown BCBS BCBS xxxxxx [id number] 2018-Present [phone] [address] [place] [address] [id number] 1965 Unknown [id number] 2.16.840.1.226805.3.579.2.5 1965 Unknown [id number] 2.16.840.1.794764.3.579.2.5 93 1965 Unknown [id number] 2.16.840.1.461485.3.579.2.5 93 1965 Unknown [id number] 2.16.840.1.044145.3.579.2.5 93 1965 Unknown [id number] 2.16.840.1.574450.3.579.2.5 93 1965 Unknown [id number] 2.16.840.1.337147.3.579.2.5 93 1965 Unknown [id number] 2.16.840.1.855692.3.579.2.5 93 1965 Unknown [id number] 2.16.840.1.310971.3.579.2.5 93 1965 Unknown [id number] 2.16.840.1.999954.3.579.2.5 93 1965 Unknown [id number] 2.16.840.1.654925.3.579.2.5 93 1965 Unknown [id number] 2.16.840.1.767333.3.579.2.5 93 1965 Unknown [id number] 2.16.840.1.816634.3.579.2.5 93 1965 Unknown [id number] 2.16.840.1.651340.3.579.2.5 93 1965 Unknown [id number] 2.16840.1.878330.3.579.2.1 73 1965 Unknown [id number] 2.16.840.1.651832.3.579.2.1 286 1965 Unknown [id number] 2.16.840.1.100504.3.579.2.1 259 1965 Unknown [id number] 2.16.840.1.532001.3.579.2.1 259 1965 Unknown [id number] 2.16.840.1.552322.3.579.2.1 259 1965 Unknown [id number] 2.16.840.1.631112.3.579.2.1 259 1965 Unknown [id number] 2.16.840.1.688057.3.579.2.1 259 1965 Unknown [id number] 2.16.840.1.019482.3.579.2.1 259 1965 Unknown [id number] 2.16.840.1.646378.3.579.2.1 259 1965 Unknown [id number] 2.16.840.1.996642.3.579.2.1 259 1965 Unknown [id number] 2.16.840.1.805640.3.579.2.1 259 1959 Unknown [id number] Unknown [id number] 2.16.840.1.043307.3.579.2.5 31 Social History Date Type Detail Facility Start: 08-17-2023 End: 08-19-2024 Tobacco smoking status MNIS Ex-smoker [facility] Start: 09-14-2000 End: 09-14-2015 History of tobacco use Current smoker [facility] Start: 09-14-2000 End: 09-14-2015 History of tobacco use Cigarette Smoker [facility] Start: 08-17-2023 End: 11-09-2024 Cigarettes smoked current (pack per day) - Reported 1 [facility] Start: 08-17-2023 End: 08-19-2024 Tobacco use and exposure Smokeless tobacco non-user [facility] Start: 05-25-2024 End: 03-06-2025 Alcoholic beverage intake Ex-drinker (finding) [facility] Start: 08-18-2023 End: 11-09-2024 Humiliation, [...] coffee daily , Soda 1 per day [facility] Start: 1965 Sex assigned at Not on file [facility] Clinical Notes 01-28-2022 to 03-06-2025 Bijal Antunez NP - 03/06/2025 4:21 PM Brent Antunez NP - 03/06/2025 4:21 PM Brent Antunez NP - 03/06/2025 4:21 PM EDTHUMBELISEO ROSENBAUM - 03/06/2025 3:40 PM EDTPatient Instructions Note [...] back area, takes breath away Went to [facility] ER, had Abnormal GBUS: had stones, [...] mg, Oral, 2 times daily PRN HYDROcodone-acetaminophen ([place]) 5-325 MG tablet 1 tablet, Oral, Every [...] & stroke/DVT. given for mammogram Morbid obesity ([facility]-HCC) Muscle spasm LORENZA on CPAP sleep study [...] on GBUS, wanted to observe, was in [facility] ER on 03/01/25 Had another US, [...] on GBUS, wanted to observe, was in [facility] ER on 03/01/25 Had another US, did show ??mass near gallbladder, recommended MRI abd This was ordered documented in this encounter [facility] 03-06-2025 Instructions Bijal Antunez NP - 03/06/2025 3:40 PM EDT Freq small meals, avoid high fat meals May take stool softener Fluids as tolerated If yellowing of skin, urine looks dk like ice or worsening pain go back to Er documented in this encounter [facility] 02-23-2025 History of Presen t illness Narrative [...] Hands Examined Digits,nails: Examined Patient wearing nail georgian, Denies dark streaks under finger nails Lymphatics: [...] yearly skin exams documented in this encounter [facility] 02-15-2025 History of Presen t illness Narrative [...] significant improvement. There is no history of CAD/RI, heart failure or PVD. Identifiable causes of [...] Past Medical History: Diagnosis Date Acquired hypothyroidism ([facility]) Allergic rhinitis Anemia iron def,. Asymptomatic microscopic [...] if worsening sxs documented in this encounter [facility] 02-15-2025 Instructions Bijal Antunez NP - 02/15/2025 8:40 AM EDT Thyroid US: [facility] [phone] ext [phone] Dermatology: placed referral Labs: fasting documented in this encounter [facility] 12-30-2024 History of Presen t illness Narrative Associated Problem(s): Primary hypertension (CMS/HCC) Lisinopril discontinued d/t episode of angioedema in 01/06 Stop lisinopril, will trial documented in this encounter [facility] 11-15-2024 History of Presen t illness Narrative Associated Problem(s): Postprandial RUQ pain Freq small meals, check GBUS May need HIDA Images from the original note were not included. Arianna Lozada is a 59 y.o. female presents with chief complaint of No chief complaint on file. HPI: Obesity: not taking any GLP 1 med for a few months, she did contact [facility], she can get the medication from the [...] compliance problems. There is no history of CAD/RI, heart failure or PVD. Edema Presents with [...] Past Medical History: Diagnosis Date Acquired hypothyroidism ([facility]) Allergic rhinitis Anemia iron def,. Asymptomatic microscopic hematuria 08/18/2023 Atopic dermatitis, unspecified type Bilateral lower extremity edema 09/08/2023 Chronic atrophic candidiasis Chronic vulvovaginitis 02/24/2023 Class 3 severe obesity without serious comorbidity in adult (CMS/[facility]) 08/20/2023 COVID-19 07/2020 Dyslipidemia (CMS/HCC) [place] of [...] Items Addressed This Visit Acquired hypothyroidism (CMS/HCC) Current med: levothyroxine Check [...] Will wait for info to come from [facility] Primary hypertension (CMS/HCC) - Primary Please check blood pressure daily [...] hydrochlorothiazide and lisinopril documented in this encounter [facility] 11-15-2024 Instructions Bijal Antunez NP - 11/15/2024 3:00 PM EST Get me info from [facility] for Zepbound Check gall bladder ultra sound, and I will refax order for mammogram at [facility]; [phone]-ext [phone] documented in this encounter [facility] 09-14-2024 Telephone encounter Note Please tell pt [...] weeks to see if still elevated LA [facility] 09-14-2024 Miscellaneous Notes Please tell pt [...] still elevated LA documented in this encounter [facility] 08-22-2024 History of Presen t illness Narrative Images from the original note were not included. Humberto Barakat, DO Obstetrics and Gynecology Arianna Thornton 1965 08/22/24 [id number] Yearly Wellness Exam Chief Complaint Patient presents with Gynecologic Exam LMP: STAH BSO 2017 HRT: Estradiol 2 MG - satisfied. Last pap 08-17-23 neg. Mammograms ordered by PCP at [facility]. Denies breast, urinary, or bowel concerns. [...] costovertebral angle tenderness, no obvious scoliosis/kyphosis. 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 Signature Lizzette Barakat,DRehanO. Date 08/22/24 Time 5:00PM. documented in this encounter [facility] 08-17-2024 History of Presen t illness [...] There is no history of kidney disease, CAD/RI or PVD. Sinusitis The current episode started [...] Past Medical History: Diagnosis Date Acquired hypothyroidism (CMS/[facility]) Allergic rhinitis Anemia iron def,. Asymptomatic microscopic [...] Morbid (severe) obesity due to excess calories ([facility]/HCC) Discussed with patient their BMI (actual, verses recommended). We have also discussed lifestyle modifications: attempts to perform physical activity as chronic conditions allow, also to monitor dietary intake: increasing protein/fruits/veggies and lowering carb intake (unless contraindicated). Limit sodas, juices, and sugary drinks. Currently taking Wegovy has been on this : Total weight loss: Body mass index (BMI) 45.0-49.9, adult ([facility]) Encounter for adult wellness visit - Primary [...] severe obesity without serious comorbidity in adult ([facility]) Discussed with patient their BMI (actual, verses [...] hydrochlorothiazide and lisinopril documented in this encounter [facility] 08-17-2024 Instructions Bijal Antunez NP - 08/17/2024 3:40 PM EST If not better after atb for sinuses contact office, may use nasal saline irrigation documented in this encounter [facility] 05-25-2024 History of Presen t illness [...] TUNNEL RELEASE 1992 SECTION, LOW TRANSVERSE 1984 1986 1988 COLONOSCOPY 01/2019 Normal. repeat in 10 [...] on PF exerxcises documented in this encounter [facility] 10-14-2022 Note PROCEDURE: XR ANKLE RT [...] authenticated by: MEGAN DANGELO Date: 2022-10-14 11:36 [facility] 10-14-2022 Note PROCEDURE: XR ANKLE RT MIN [...] by: MEGAN DANGELO Date: 2022-10-14 11:36 [facility] 08-14-2022 Note PROCEDURE: XR FOOT L T [...] by: DESTIN MCDONOUGH Date: 2022-08-13 23:22 [facility] 06-03-2022 Note PROCEDURE: XR FOOT L T [...] by: DESTIN MCDONOUGH Date: 2022-06-03 16:04 [facility] 03-25-2022 Note PROCEDURE: XR FOOT L T [...] by: MEGAN DANGELO Date: 2022-03-25 19:35 [facility] 01-28-2022 Note PROCEDURE: XR FOOT L T [...] by: DESTIN MCDONOUGH Date: 2022-01-28 14:19 [facility] Evaluation note Diagnosis Primary hypertension (CMS/HCC)- Primary [...] (BMI) of 45.0 to 49.9 in adult (CMS/[facility]) Bilateral lower extremity edema Class 3 severe obesity due to excess calories without serious comorbidity with body mass index (BMI) of 45.0 to 49.9 in adult ([facility]/HCC)- Primary [facility] Diagnosis Primary hypertension (CMS/HCC)- Primary Unspecified essential hypertension Class 3 severe obesity due to excess calories without serious comorbidity with body mass index (BMI) of 45.0 to 49.9 in adult ([facility]) Acquired hypothyroidism ([facility]) Unspecified hypothyroidism Rash Rash and other nonspecific skin eruption Primary hypertension (CMS/HCC)- Primary Unspecified essential hypertension Bilateral lower extremity edema Class 3 severe obesity due to excess calories without serious comorbidity with body mass index (BMI) of 45.0 to 49.9 in adult ([facility]) Plantar fasciitis, right- Primary Primary hypertension ([facility]) Unspecified essential hypertension Class 3 severe obesity due to excess calories without serious comorbidity with body mass index (BMI) of 45.0 to 49.9 in adult ([facility]) Bilateral lower extremity edema Encounter for adult wellness visit- Primary Morbid (severe) obesity due to excess calories (CMS/[facility]) Body mass index (BMI) 45.0-49.9, adult ([facility]) Primary hypertension ([facility]/HCC) Unspecified essential hypertension Bilateral lower extremity edema Class 3 severe obesity due to excess calories without serious comorbidity with body mass index (BMI) of 45.0 to 49.9 in adult ([facility]) Essential (primary) hypertension ([facility]/HCC) Unspecified essential hypertension Pure hyperglyceridemia ([facility]) Pure hyperglyceridemia Acute non-recurrent maxillary sinusitis [facility] Diagnosis Primary hypertension ([facility]/HCC)- Primary Unspecified essential hypertension Class 3 severe obesity due to excess calories without serious comorbidity with body mass index (BMI) of 45.0 to 49.9 in adult ([facility]) Acquired hypothyroidism ([facility]/HCC) Unspecified hypothyroidism Rash Rash and other nonspecific skin eruption Primary hypertension (CMS/HCC)- Primary Unspecified essential hypertension Bilateral lower extremity edema Class 3 severe obesity due to excess calories without serious comorbidity with body mass index (BMI) of 45.0 to 49.9 in adult ([facility]) Plantar fasciitis, right- Primary Primary hypertension ([facility]/HCC) Unspecified essential hypertension Class 3 severe obesity due to excess calories without serious comorbidity with body mass index (BMI) of 45.0 to 49.9 in adult ([facility]) Bilateral lower extremity edema Encounter for adult wellness visit- Primary Morbid (severe) obesity due to excess calories ([facility]) Body mass index (BMI) 45.0-49.9, adult ([facility]) Primary hypertension ([facility]) Unspecified essential hypertension Bilateral lower extremity edema Class 3 severe obesity due to excess calories without serious comorbidity with body mass index (BMI) of 45.0 to 49.9 in adult ([facility]) Essential (primary) hypertension ([facility]) Unspecified essential hypertension Pure hyperglyceridemia ([facility]) Pure hyperglyceridemia Acute non-recurrent maxillary sinusitis Encounter for gynecological examination without abnormal finding Screening for malignant neoplasm of cervix Screening for malignant neoplasm of the cervix Breast cancer screening by mammogram Hormone replacement therapy documented in this encounter [facility]* Diagnosis Plantar fasciitis, right- Primary Primary hypertension ([facility]) Unspecified essential hypertension Class 3 severe obesity due to excess calories without serious comorbidity with body mass index (BMI) of 45.0 to 49.9 in adult ([facility]) Bilateral lower extremity edema documented in this encounter [facility]* Diagnosis Primary hypertension ([facility])- Primary Unspecified essential hypertension Class 3 severe obesity due to excess calories without serious comorbidity with body mass index (BMI) of 45.0 to 49.9 in adult ([facility]) Acquired hypothyroidism ([facility]) Unspecified hypothyroidism Rash Rash and other nonspecific skin eruption Primary hypertension ([facility])- Primary Unspecified essential hypertension Bilateral lower extremity edema Class 3 severe obesity due to excess calories without serious comorbidity with body mass index (BMI) of 45.0 to 49.9 in adult ([facility]) Plantar fasciitis, right- Primary Primary hypertension ([facility]) Unspecified essential hypertension Class 3 severe obesity due to excess calories without serious comorbidity with body mass index (BMI) of 45.0 to 49.9 in adult ([facility]) Bilateral lower extremity edema Encounter for adult wellness visit- Primary Morbid (severe) obesity due to excess calories ([facility]) Body mass index (BMI) 45.0-49.9, adult ([facility]) Primary hypertension ([facility]) Unspecified essential hypertension Bilateral lower extremity edema [...] (BMI) of 45.0 to 49.9 in adult ([facility]) Plantar fasciitis, right- Primary Primary hypertension ([facility]/HCC) Unspecified essential hypertension Class 3 severe obesity due to excess calories without serious comorbidity with body mass index (BMI) of 45.0 to 49.9 in adult ([facility]) Bilateral lower extremity edema Encounter for adult wellness visit- Primary Morbid (severe) obesity due to excess calories (CMS/HCC) Body mass index (BMI) 45.0-49.9, adult ([facility]) Primary hypertension (CMS/HCC) Unspecified essential hypertension Bilateral lower extremity edema Class 3 severe obesity due to excess calories without serious comorbidity with body mass index (BMI) of 45.0 to 49.9 in adult ([facility]) Essential (primary) hypertension ([facility]/HCC) Unspecified essential hypertension Pure hyperglyceridemia ([facility]) Pure hyperglyceridemia Acute non-recurrent maxillary sinusitis UTI symptoms- Primary [facility] Diagnosis Primary hypertension ([facility])- Primary Unspecified essential hypertension Class 3 severe obesity due to excess calories without serious comorbidity with body mass index (BMI) of 45.0 to 49.9 in adult ([facility]) Acquired hypothyroidism ([facility]) Unspecified hypothyroidism Rash Rash and other nonspecific skin eruption Primary hypertension ([facility])- Primary Unspecified essential hypertension Bilateral lower extremity edema Class 3 severe obesity due to excess calories without serious comorbidity with body mass index (BMI) of 45.0 to 49.9 in adult ([facility]) Plantar fasciitis, right- Primary Primary hypertension ([facility]) Unspecified essential hypertension Class 3 severe obesity due to excess calories without serious comorbidity with body mass index (BMI) of 45.0 to 49.9 in adult ([facility]) Bilateral lower extremity edema Encounter for adult wellness visit- Primary Morbid (severe) obesity due to excess calories (CMS/HCC) Body mass index (BMI) 45.0-49.9, adult ([facility]) Primary hypertension (CMS/HCC) Unspecified essential hypertension Bilateral lower extremity edema Class 3 severe obesity due to excess calories without serious comorbidity with body mass index (BMI) of 45.0 to 49.9 in adult ([facility]) Essential (primary) hypertension ([facility]/HCC) Unspecified essential hypertension Pure hyperglyceridemia (CMS/HCC) Pure [...] Other chronic pain [facility] [...] (CMS/HCC) Body mass index (BMI) 45.0-49.9, adult ([facility]) Primary hypertension (CMS/HCC) Unspecified essential hypertension Bilateral [...] Primary hypertension (CMS/HCC)- Primary Unspecified essential hypertension Rash and other nonspecific skin eruption [facility] Diagnosis Primary hypertension- Primary Unspecified essential hypertension Class 3 severe obesity due to excess calories without serious comorbidity with body mass index (BMI) of 45.0 to 49.9 in adult ([facility]-H[facility]) Acquired hypothyroidism Unspecified hypothyroidism Rash Rash and other nonspecific skin eruption Primary hypertension- Primary Unspecified essential hypertension Bilateral lower extremity edema Class 3 severe obesity due to excess calories without serious comorbidity with body mass index (BMI) of 45.0 to 49.9 in adult ([facility]) Plantar fasciitis, right- Primary Primary hypertension Unspecified essential hypertension Class 3 severe obesity due to excess calories without serious comorbidity with body mass index (BMI) of 45.0 to 49.9 in adult ([facility]) Bilateral lower extremity edema Encounter for adult wellness visit- Primary Morbid (severe) obesity due to excess calories (CMS-HCC) Body mass index (BMI) 45.0-49.9, adult ([facility]) Primary hypertension Unspecified essential hypertension Bilateral lower extremity edema Class 3 severe obesity due to excess calories without serious comorbidity with body mass index (BMI) of 45.0 to 49.9 in adult ([facility]) Essential (primary) hypertension Unspecified essential hypertension Pure hyperglyceridemia Pure hyperglyceridemia Acute non-recurrent maxillary sinusitis Primary hypertension- Primary Unspecified essential hypertension Elevated liver function tests Other abnormal blood chemistry Bilateral lower extremity edema Acquired hypothyroidism Unspecified hypothyroidism Class 3 severe obesity due to excess calories without serious comorbidity with body mass index (BMI) of 40.0 to 44.9 in adult (CMS-HCC) Postprandial RUQ pain Primary hypertension- Primary Unspecified essential hypertension Primary hypertension- Primary Unspecified essential hypertension Postprandial RUQ pain Bilateral lower extremity edema Class 3 severe obesity due to excess calories without serious comorbidity with body mass index (BMI) of 40.0 to 44.9 in adult (CMS-HCC) Mixed hyperlipidemia Mixed hyperlipidemia Pure hyperglyceridemia Pure [...] condition of skin [facility] [...] chemistry Bilateral lower extremity edema Acquired hypothyroidism ([facility]/HCC) Unspecified hypothyroidism Class 3 severe obesity due to excess calories without serious comorbidity with body mass index (BMI) of 40.0 to 44.9 in adult Postprandial RUQ pain Primary hypertension (CMS/HCC)- Primary Unspecified essential hypertension Primary hypertension ([facility]/HCC)- Primary Unspecified essential hypertension Postprandial RUQ pain Bilateral lower extremity edema Class 3 severe obesity due to excess calories without serious comorbidity with body mass index (BMI) of 40.0 to 44.9 in adult Mixed hyperlipidemia (CMS/HCC) Mixed hyperlipidemia Pure hyperglyceridemia ([facility]/HCC) Pure hyperglyceridemia Essential (primary) hypertension ([facility]/HCC) Unspecified essential hypertension Acquired hypothyroidism ([facility]) Unspecified hypothyroidism Other chronic pain Vitamin D deficiency Thyroid nodule ([facility]) Nontoxic uninodular goiter 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, site unspecified [facility] Diagnosis Primary hypertension- Primary Unspecified essential hypertension Class 3 severe obesity due to excess calories without serious comorbidity with body mass index (BMI) of 45.0 to 49.9 in adult ([facility]) Acquired hypothyroidism Unspecified hypothyroidism Rash Rash and other nonspecific skin eruption Primary hypertension- Primary Unspecified essential hypertension Bilateral lower extremity edema Class 3 severe obesity due to excess calories without serious comorbidity with body mass index (BMI) of 45.0 to 49.9 in adult ([facility] Plantar fasciitis, right- Primary Primary hypertension Unspecified essential hypertension Class 3 severe obesity due to excess calories without serious comorbidity with body mass index (BMI) of 45.0 to 49.9 in adult ([facility] Bilateral lower extremity edema Encounter for adult wellness visit- Primary Morbid (severe) obesity due to excess calories ([facility]) Body mass index (BMI) 45.0-49.9, adult ([facility] Primary hypertension Unspecified essential hypertension Bilateral lower extremity edema Class 3 severe obesity due to excess calories without serious comorbidity with body mass index (BMI) of 45.0 to 49.9 in adult ([facility] Essential (primary) hypertension Unspecified essential hypertension Pure hyperglyceridemia Pure hyperglyceridemia Acute non-recurrent maxillary sinusitis Primary hypertension- Primary Unspecified essential hypertension Elevated liver function tests Other abnormal blood chemistry Bilateral lower extremity edema Acquired hypothyroidism Unspecified hypothyroidism Class 3 severe obesity due to excess calories without serious comorbidity with body mass index (BMI) of 40.0 to 44.9 in adult ([facility] Postprandial RUQ pain Primary hypertension- Primary Unspecified essential hypertension Primary hypertension- Primary Unspecified essential hypertension Postprandial RUQ pain Bilateral lower extremity edema Class 3 severe obesity due to excess calories without serious comorbidity with body mass index (BMI) of 40.0 to 44.9 in adult ([facility] Mixed hyperlipidemia Mixed hyperlipidemia Pure hyperglyceridemia Pure hyperglyceridemia Essential (primary) hypertension Unspecified essential hypertension Acquired hypothyroidism Unspecified hypothyroidism Other chronic pain Vitamin D deficiency Thyroid nodule Nontoxic uninodular goiter 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, site unspecified Postprandial RUQ pain- Primary Abnormal gallbladder ultrasound documented in this encounter [facility] HealthcareEvaluation note* Diagnosis Primary hypertension- Primary Unspecified essential hypertension Class 3 severe obesity due to excess calories without serious comorbidity with body mass index (BMI) of 45.0 to 49.9 in adult ([facility] Acquired hypothyroidism Unspecified hypothyroidism Rash Rash and other nonspecific skin eruption Primary hypertension- Primary Unspecified essential hypertension Bilateral lower extremity edema Class 3 severe obesity due to excess calories without serious comorbidity with body mass index (BMI) of 45.0 to 49.9 in adult ([facility] Plantar fasciitis, right- Primary Primary hypertension Unspecified essential hypertension Class 3 severe obesity due to excess calories without serious comorbidity with body mass index (BMI) of 45.0 to 49.9 in adult ([facility] Bilateral lower extremity edema Encounter for adult wellness visit- Primary Morbid (severe) obesity due to excess calories ([facility]) Body mass index (BMI) 45.0-49.9, adult ([facility]) Primary hypertension Unspecified essential hypertension Bilateral lower extremity edema Class 3 severe obesity due to excess calories without serious comorbidity with body mass index (BMI) of 45.0 to 49.9 in adult ([facility]) Essential (primary) hypertension Unspecified essential hypertension Pure hyperglyceridemia Pure hyperglyceridemia Acute non-recurrent maxillary sinusitis Primary hypertension- Primary Unspecified essential hypertension Elevated liver function tests Other abnormal blood chemistry Bilateral lower extremity edema Acquired hypothyroidism Unspecified hypothyroidism Class 3 severe obesity due to excess calories without serious comorbidity with body mass index (BMI) of 40.0 to 44.9 in adult ([facility]) Postprandial RUQ pain Primary hypertension- Primary Unspecified essential hypertension Primary hypertension- Primary Unspecified essential hypertension Postprandial RUQ pain Bilateral lower extremity edema Class 3 severe obesity due to excess calories without serious comorbidity with body mass index (BMI) of 40.0 to 44.9 in adult ([facility] Mixed hyperlipidemia Mixed hyperlipidemia Pure hyperglyceridemia Pure hyperglyceridemia Essential (primary) hypertension Unspecified essential hypertension Acquired hypothyroidism Unspecified hypothyroidism Other chronic pain Vitamin D deficiency Thyroid nodule Nontoxic uninodular goiter 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, site unspecified Mass of gallbladder- Primary documented in this encounter [facility] HealthcareEvaluation note* Diagnosis Primary hypertension- Primary Unspecified essential hypertension Class 3 severe obesity due to excess calories without serious comorbidity with body mass index (BMI) of 45.0 to 49.9 in adult ([facility]) Acquired hypothyroidism Unspecified hypothyroidism Rash Rash and other nonspecific skin eruption Primary hypertension- Primary Unspecified essential hypertension Bilateral lower extremity edema Class 3 severe obesity due to excess calories without serious comorbidity with body mass index (BMI) of 45.0 to 49.9 in adult ([facility]) Plantar fasciitis, right- Primary Primary hypertension Unspecified essential hypertension Class 3 severe obesity due to excess calories without serious comorbidity with body mass index (BMI) of 45.0 to 49.9 in adult ([facility]) Bilateral lower extremity edema Encounter for adult wellness visit- Primary Morbid (severe) obesity due to excess calories ([facility]) Body mass index (BMI) 45.0-49.9, adult ([facility]) Primary hypertension Unspecified essential hypertension Bilateral lower extremity edema Class 3 severe obesity due to excess calories without serious comorbidity with body mass index (BMI) of 45.0 to 49.9 in adult ([facility]) Essential (primary) hypertension Unspecified essential hypertension Pure hyperglyceridemia Pure hyperglyceridemia Acute non-recurrent maxillary sinusitis Primary hypertension- Primary Unspecified essential hypertension Elevated liver function tests Other abnormal blood chemistry Bilateral lower extremity edema Acquired hypothyroidism Unspecified hypothyroidism Class 3 severe obesity due to excess calories without serious comorbidity with body mass index (BMI) of 40.0 to 44.9 in adult ([facility]) Postprandial RUQ pain Primary hypertension- Primary Unspecified essential hypertension Primary hypertension- Primary Unspecified essential hypertension Postprandial RUQ pain Bilateral lower extremity edema Class 3 severe obesity due to excess calories without serious comorbidity with body mass index (BMI) of 40.0 to 44.9 in adult ([facility]) Mixed hyperlipidemia Mixed hyperlipidemia Pure hyperglyceridemia Pure hyperglyceridemia Essential (primary) hypertension Unspecified essential hypertension Acquired hypothyroidism Unspecified hypothyroidism Other chronic pain Vitamin D deficiency Thyroid nodule Nontoxic uninodular goiter 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, site unspecified Postprandial RUQ pain- Primary Mass of gallbladder documented in this encounter [facility] HealthcareEvaluation note* Diagnosis Primary hypertension- Primary Unspecified essential hypertension Class 3 severe obesity due to excess calories without serious comorbidity with body mass index (BMI) of 45.0 to 49.9 in adult ([facility] Acquired hypothyroidism Unspecified hypothyroidism Rash Rash and other nonspecific skin eruption Primary hypertension- Primary Unspecified essential hypertension Bilateral lower extremity edema Class 3 severe obesity due to excess calories without serious comorbidity with body mass index (BMI) of 45.0 to 49.9 in adult ([facility]) Plantar fasciitis, right- Primary Primary hypertension Unspecified essential hypertension Class 3 severe obesity due to excess calories without serious comorbidity with body mass index (BMI) of 45.0 to 49.9 in adult ([facility]) Bilateral lower extremity edema Encounter for adult wellness visit- Primary Morbid (severe) obesity due to excess calories ([facility]) Body mass index (BMI) 45.0-49.9, adult ([facility]) Primary hypertension Unspecified essential hypertension Bilateral lower extremity edema Class 3 severe obesity due to excess calories without serious comorbidity with body mass index (BMI) of 45.0 to 49.9 in adult ([facility]) Essential (primary) hypertension Unspecified essential hypertension Pure hyperglyceridemia Pure hyperglyceridemia Acute non-recurrent maxillary sinusitis Primary hypertension- Primary Unspecified essential hypertension Elevated liver function tests Other abnormal blood chemistry Bilateral lower extremity edema Acquired hypothyroidism Unspecified hypothyroidism Class 3 severe obesity due to excess calories without serious comorbidity with body mass index (BMI) of 40.0 to 44.9 in adult ([facility]) Postprandial RUQ pain Primary hypertension- Primary Unspecified essential hypertension Primary hypertension- Primary Unspecified essential hypertension Postprandial RUQ pain Bilateral lower extremity edema Class 3 severe obesity due to excess calories without serious comorbidity with body mass index (BMI) of 40.0 to 44.9 in adult ([facility] Mixed hyperlipidemia Mixed hyperlipidemia Pure hyperglyceridemia Pure [...] (BMI) of 40.0 to 44.9 in adult ([facility]) documented in this encounter [facility] Summary [...] and content) DATE CREATED AUTHOR 01/23/2023 [facility] DATE CREATED AUTHOR AUTHOR'S ORGANIZ ATION 09/14/2024 [facility] DATE CREATED AUTHOR AUTHOR'S ORGANIZ ATION 11/10/2024 [facility] DATE CREATED AUTHOR AUTHOR'S ORGANIZ ATION 01/01/2025 [facility] DATE CREATED AUTHOR AUTHOR'S ORGANIZ ATION 03/07/2025 [facility] EPIC Reason for Visit (unrecogniz ed section and content) Reason Onset Date Comments Med Refill 08/07/2024 Reason Comments Hypertension Reason Comments Gynecologic Exam LMP: STAH BSO 2017HR T: Estradiol 2 MG - satisfied. Last pap 08-17-23 neg.Mammograms ordered by PCP at [facility]. Denies breast, urinary, or bowel concerns. Menopause Questions how long t o be on Estradiol. Reason Comments Med Refill Reason Comments Skin Check Suspicious Skin Lesion Specialty Diagnoses / Procedures Referred By Contac t Referred To Contact Dermatology Diagnoses Neoplasm of uncertain behavior Procedures [place] OFFICE/OUTPATIENT NEW HIGH MDM 60 MINUTES Bijal Antunez NP [address] [place] [address] Phone: tel: fax: Sara Weber MD [address] [place] [address] Phone: tel: fax: Referral ID Status Reason Start Date Expiration Date V isits Requested Visits Authorized [id number] Closed Specialty Services Required 02/15/2025 08/14/2025 1 1 Reason Comments Hypertension Reason Comments Hospital Follow-up Care Teams (unrecognized sec tion and content) Chief Lock Tender Operator Relationship Specialty Start Date End Date Naderer, Charan, MD [address] [place] [address] PCP - General Family Medicine 01/20/24 Bijal Antunez NP [address] [place] [address] PCP - [place] [employer] 12/14/23 Bijal Antunez NP [address] [place] [address] Nurse Practitioner Family Medicine 01/20/24 Chief Lock Tender Operator Relationship Specialty Start Date End Date Charan Quinn MD [address] [place] [address] PCP - General Family Medicine 01/20/24 Bijal Antunez NP [address] [place] [address] PCP - [employer] 12/14/23 Bijal Antunez NP [address] [place] [address] Nurse Practitioner Family Medicine 01/20/24 Chief Lock Tender Operator Relationship Specialty Start Date End Date Charan Quinn MD [address] [place] [address] PCP - General Family Medicine 01/20/24 Bijal Antunez NP [address] [place] [address] PCP - [employer] 12/14/23 Bijal Antunez NP [address] [place] [address] Nurse Practitioner Family Medicine 01/20/24 Chief Lock Tender Operator Relationship Specialty Start Date End Date Charan Quinn MD [address] [place] [address] PCP - General Family Medicine 01/20/24 Bijal Antunez NP [address] [place] [address] PCP - [employer] [employer] 12/14/23 Bijal Antunez NP [address] [place] [address] Nurse Practitioner Family Medicine 01/20/24 Chief Lock Tender Operator Relationship Specialty Start Date End Date Charan Quinn MD [address] [place] [address] PCP - General Family Medicine 01/20/24 Bijal Antunez NP [address] [place] [address] PCP - [employer] [employer] 12/14/23 Bijal Antunez NP [address] [place] [address] Nurse Practitioner Family Medicine 01/20/24 Chief Lock Tender Operator Relationship Specialty Start Date End Date Charan Quinn MD [address] [place] [address] PCP - General Family Medicine 01/20/24 Bijal Antunez NP [address] [place] [address] PCP - [employer] [employer] 12/14/23 Bijal Antunez NP [address] [place] [address] Nurse Practitioner Family Medicine 01/20/24 Chief Lock Tender Operator Relationship Specialty Start Date End Date Charan Quinn MD [address] [place] [address] PCP - General Family Medicine 01/20/24 Bijal Antunez NP [address] [place] [address] PCP - [employer] [employer] 12/14/23 Bijal Antunez NP [address] [place] [address] Nurse Practitioner Family Medicine 01/20/24 Chief Lock Tender Operator Relationship Specialty Start Date End Date Charan Quinn MD [address] [place] [address] PCP - General Family Medicine 01/20/24 Bijal Antunez NP [address] [place] [address] PCP - [employer] [employer] 12/14/23 Bijal Antunez NP [address] [place] [address] Nurse Practitioner Family Medicine 01/20/24 Chief Lock Tender Operator Relationship Specialty Start Date End Date Charan Quinn MD [address] [place] [address] PCP - General Family Medicine 01/20/24 Bijal Antunez NP [address] [place] [address] PCP - [employer] [employer] 12/14/23 Bijal Antunez NP [address] [place] [address] Nurse Practitioner Family Medicine 01/20/24 Chief Lock Tender Operator Relationship Specialty Start Date End Date Charan Quinn MD [address] [place] [address] PCP - General Family Medicine 01/20/24 Bijal Antunez NP [address] [place] [address] PCP - [employer] [employer] 12/14/23 Bijal Antunez NP [address] [place] [address] Nurse Practitioner Family Medicine 01/20/24 Chief Lock Tender Operator Relationship Specialty Start Date End Date Charan Quinn MD [address] [place] [address] PCP - General Family Medicine 01/20/24 Bijal Antunez NP [address] [place] [address] PCP - [employer] [employer] 12/14/23 Bijal Antunez NP [address] [place] [address] Nurse Practitioner Family Medicine 01/20/24 Chief Lock Tender Operator Relationship Specialty Start Date End Date Charan Quinn MD [address] [place] [address] PCP - General Family Medicine 01/20/24 Bijal Antunez NP [address] [place] [address] PCP - [employer] [employer] 12/14/23 Bijal Antunez NP [address] [place] [address] Nurse Practitioner Family Medicine 01/20/24 Chief Lock Tender Operator Relationship Specialty Start Date End Date Charan Quinn MD [address] [place] [address] PCP - General Family Medicine 01/20/24 Bijal Antunez NP [address] [place] [address] PCP - [employer] [employer] 12/14/23 Bijal Antunez NP [address] [place] [address] Nurse Practitioner Family Medicine 01/20/24 Chief Lock Tender Operator Relationship Specialty Start Date End Date Charan Quinn MD [address] [place] [address] PCP - General Family Medicine 01/20/24 Bijal Antunez NP [address] [place] [address] PCP - [employer] [employer] 12/14/23 Bijal Antunez NP [address] [place] [address] Nurse Practitioner Family Medicine 01/20/24 Chief Lock Tender Operator Relationship Specialty Start Date End Date Charan Quinn MD [address] [place] [address] PCP - General Family Medicine 01/20/24 Bijal Antunez NP [address] [place] [address] PCP - [employer] [employer] 12/14/23 Bijal Antunez NP [address] [place] [address] Nurse Practitioner Family Medicine 01/20/24 Chief Lock Tender Operator Relationship Specialty Start Date End Date Charan Quinn MD [address] [place] [address] PCP - General Family Medicine 01/20/24 Bijal Antunez NP [address] [place] [address] PCP - [employer] [employer] 12/14/23 Bijal Antunez NP [address] [place] [address] Nurse Practitioner Family Medicine 01/20/24 Chief Lock Tender Operator Relationship Specialty Start Date End Date Charan Quinn MD [address] [place] [address] PCP - General Family Medicine 01/20/24 Bijal Antunez NP [address] [place] [address] PCP - [employer] [employer] 12/14/23 Bijal Antunez NP [address] [place] [address] Nurse Practitioner Family Medicine 01/20/24 Chief Lock Tender Operator Relationship Specialty Start Date End Date Charan Quinn MD [address] [place] [address] PCP - General Family Medicine 01/20/24 Bijal Antunez NP [address] [place] [address] PCP - [employer] [employer] 12/14/23 Bijal Antunez NP [address] [place] [address] Nurse Practitioner Family Medicine 01/20/24 Chief Lock Tender Operator Relationship Specialty Start Date End Date Charan Quinn MD [address] [place] [address] PCP - General Family Medicine 01/20/24 Bijal Antunez NP [address] [place] [address] PCP - [employer] 12/14/23 Biajl Antunez NP [address] [place] [address] Nurse Practitioner Family Medicine 01/20/24 Chief Lock Tender Operator Relationship Specialty Start Date End Date Charan Quinn MD [address] [place] [address] PCP - General Family Medicine 01/20/24 Bijal Antunez NP [address] [place] [address] PCP - [employer] 12/14/23 Bijal Antunez NP [address] [place] [address] Nurse Practitioner Family Medicine 01/20/24 Chief Lock Tender Operator Relationship Specialty Start Date End Date Charan Quinn MD [address] [place] [address] PCP - General Family Medicine 01/20/24 Bijal Antunez NP [address] [place] [address] PCP - [employer] [employer] 12/14/23 Bijal Antunez NP [address] [place] [address] Nurse Practitioner Family Medicine 01/20/24 Chief Lock Tender Operator Relationship Specialty Start Date End Date Charan Quinn MD [address] [place] [address] PCP - General Family Medicine 01/20/24 Bijal Antunez NP [address] [place] [address] PCP - [employer] 12/14/23 Bijal Antunez NP [address] [place] [address] Nurse Practitioner Family Medicine 01/20/24 Chief Lock Tender Operator Relationship Specialty Start Date End Date Charan Quinn MD [address] [place] [address] PCP - General Family Medicine 01/20/24 Bijal Antunez NP [address] [place] [address] PCP - [employer] [employer] 12/14/23 Bijal Antunez NP [address] [place] [address] Nurse Practitioner Family Medicine 01/20/24 Chief Lock Tender Operator Relationship Specialty Start Date End Date Charan Quinn MD [address] [place] [address] PCP - General Family Medicine 01/20/24 Bijal Antunez NP [address] [place] [address] PCP - [facility] 12/14/23 Bijal Antunez NP [address] [place] [address] Nurse Practitioner Family Medicine 01/20/24 FOR RECORDS [...] BE BASED ON THE PRIMARY CLINICAL RECORDS. [facility]. provides no warranty or guarantee of the accuracy or completeness of information in this document.
[2025-03-13 11:33] LABS: Alanine Aminotransferase 23 U/L (14-59); Albumin Globulin Ratio 0.9; Albumin Level 3.3 g/dL (3.4-5.0); Alkaline Phosphatase 87 U/L (46-116); Anion Gap 12.6; Aspartate Amino Transferase 19 U/L (15-37); BUN Creatinine Ratio 26.4; Bilirubin Total 0.5 mg/dL (0.2-1.0); Calcium 9.3 mg/dL (8.5-10.1); Carbon Dioxide 31.9 mmol/L (21.0-32.0); Chloride 104 mmol/L (98-107); Cholesterol 148 mg/dL (<=200); Estimated GFR (African America >60 (>=60 mL/min/1.73m^2); Estimated GFR (Non-African Ame >60 (>=60 mL/min/1.73m^2); Globulin 3.8 g/dL; Glucose 109 mg/dL (74-106); HDL Cholesterol 50 mg/dL (40-60); Potassium 3.5 mmol/L (3.5-5.1); Sodium 145 mmol/L (136-145); Thyroid Stimulating Hormone 0.694 uIU/mL (0.358-3.740); Total Protein 7.1 g/dL (6.4-8.2); Triglycerides 205 mg/dL (<=150)
[2025-03-13 12:20] LABS: Free T4 1.14 ng/dL (0.76-1.46)
== END 2025-03-13 10:21 | disposition home or self-care (01) ==
LOC: LAB 10:28
PROVIDERS: PCP Nurse Practitioner; Visit Provider Nurse Practitioner
DX: E78.2 Mixed hyperlipidemia (principal); E55.9 Vitamin D deficiency, unspecified; E03.9 Hypothyroidism, unspecified
CPT/HCPCS: 36415; 80053; 80061; 82306; 84439; 84443

== ENCOUNTER 2025-03-21 19:53 | Emergency (ER) | payer BC, SELFPAY ==
--- OUTSIDE RECORDS SUMMARY | 2019-07-08 09:15 | XMS_ITS | Continuity of Care Document ---
Author Organization [facility] Address [address] [place] [address] [place] [address] Phone Care Team Providers Care Double Needle Stitcher Name Role Phone Gama Turner MD Unavailable Unavailable Procedures Procedure Date OFFICE/OUTPATIENT VISIT, [facility] PSYCH DIAGNOSTIC EVALUATION PSYCL/NRPSYC TST PHY/QHP [facility] PSYCL/NRPSYC TST PHY/QHP Advance Directives Directive Yes / No Effective Date File Name No Information Encounters Encounter Description Practice Location Reason(s) For Visit Diagnoses Date Provider Providers Copied on Encounter OFFICE/OUTPAT IENT VISIT, [facility] [employer] [facility], [address] [place] [address], [id number], tel:[phone] [facility] No Information Johnny Malloy. [address] [place] [address], [id number], [place]. tel:[phone] Referring Provider: Gama Mckay, [address] [place] [address], [id number] . tel:[phone] PSYCH DIAGNOSTIC EVALUATION [facility] [employer] [facility], [address] [place] [address], [id number], tel:[phone] [facility] No Information No Information Family History Family Member Type Diagnosis Age At Onset No Information Payers Payer name Insurance type Covered green party ID Sara holman(s) Lamberto CALDERA [id number] Social History Type Description Quantity Date Captured [...]
--- OUTSIDE RECORDS SUMMARY | 2025-03-06 15:39 | XMS_ITS ---
Author Name Auto Generated Organization OHIP Support Name Relationship Address Phone IGNACIO REGAN Next of Kin Unknown [phone] CHRISTY JACKSON Next of Kin Unknown + GIGI JACKSON Next of Kin Unknown [phone] REGAN LOZADA Next of Kin Unknown [phone] CHRISTY JACKSON Next of Kin Unknown + GIGI JACKSON Next of Kin Unknown [phone] REGAN LOZADA Next of Kin Unknown [phone] CHRISTY JACKSON Next of Kin Unknown + GIGI JACKSON Next of Kin Unknown [phone] REGAN LOZADA Next of Kin [address] [facility] [address] [place] [address] + REGAN LOZADA Next of Kin Unknown [phone] CHRISTY JACKSON Next of Kin Unknown + GIGI JACKSON Next of Kin Unknown [phone] Regan Lozada Next of Kin Unknown [phone] REGAN LOZADA Next of Kin Unknown [phone] CHRISTY JACKSON Next of Kin Unknown + GIGI JACKSON Next of Kin Unknown [phone] REGAN OLZADA Next of Kin Unknown [phone] CHRISTY JACKSON Next of Kin Unknown + GIGI JACKSON Next of Kin Unknown [phone] REGAN LOZADA Next of Kin Unknown [phone] CHRISTY JACKSON Next of Kin Unknown + GIGI JACKSON Next of Kin Unknown [phone] REGAN LOZADA Next of Kin Unknown [phone] CHRISTY JACKSON Next of Kin Unknown + GIGI JACKSON Next of Kin Unknown [phone] Care Team Providers Care Breaster Name Role Phone MIKEY CEDEÑO Attending Unavailable MIKEY CEDEÑO Attending Unavailable GALA, MIKEY Attending Unavailable MIKEY CEDEÑO Attending Unavailable YANIRA LA Attending Unavailable MIKEY CEDEÑO Referring Unavailable MIKEY CEDEÑO Attending Unavailable MIKEY CEDEÑO Attending Unavailable KLAUDIA BARAKAT Attending Unavailable NON STAFF Attending Unavailable NON STAFF Admitting Unavailable SHERIF COLE Referring Unavailable MIKEY CEDEÑO Primary Care Unavailable MONICA CELESTIN Attending Unavailable PROBLEMS DATE TYPE CONDITION / CODE ATTENDING STATUS [facility] 12/29/2024 Unknown Angioneurotic ed bao, initial encounter / T78.3XXA(ICD-10) MONICA CELESTIN [facility] 12/29/2024 Unknown Facial Swelling / FREETEXT(AOF) MONICA CELESTIN [facility] 12/29/2024 Unknown Allergic Reactio n / UNK(Unknown) MONICA CELESTIN [facility] 11/08/2024 Admitting diagnosis Encounter for pre-employment examination / Z02.1(ICD-10) NA [facility] PROCEDURES No Procedure Records Found RESULTS CBC AND AUTO DIFF Collected: 12/29/2024 2:39 PM Status: COMPLETED Source: [facility] TYPE CODE TESTS RESULT OUT OF RANGE REFERENCE UNITS LAB WBC(LOINC) WBC COUNT 7.0 4.0-11.0 X10E9/L LAB RBC(LOINC) RBC COUNT 3.95 3.80-5.20 X10E12/L LAB HGB(LOINC) HEMOGLOBIN 12.6 11.7-15.5 g/dL LAB HCT(LOINC) HEMATOCRIT 35.9 35-47 % LAB MCV(LOINC) MCV 91 80-100 fL LAB MCH(LOINC) MCH 32.0 27-34 pg LAB MCHC(LOINC) MCHC 35.1 32-36 g/dL LAB RDW(LOINC) RDW 13.3 11.5-15.0 % LAB PLTC(LOINC) PLATELET COUNT 358 150-450 X10E9 /L LAB MPV(LOINC) MPV 6.3 Low 7-12 fL LAB NEUT(LOINC) % NEUTROPHILS 74.6 % LAB LYMP(LOINC) % LYMPHOCYTES 15.8 % LAB MONO(LOINC) % MONOCYTES 6.6 % LAB EOS(LOINC) % EOSINOPHILS 2.7 % LAB BASO(LOINC) % BASOPHILS 0.3 % LAB ANEUT(LOINC) ABSOLUTE NEUTROPHIL 5.2 1.5-6.6 X10E9/L LAB ALYMP(LOINC) ABSOLUTE LYMPHOCYTE 1.1 1.0-3.5 X10E9/L LAB AMONO(LOINC) ABSOLUTE MONOCYTE 0.5 0-0.9 X10E9/L LAB AEOS(LOINC) ABSOLUTE EOSINOPHIL 0.2 0.0-0.4 X10E9/L LAB ABASO(LOINC) ABSOLUTE BASOPHIL 0.0 0.0-0.2 X10E9/L Performed By: #### CBCA, BMP #### [facility] ([id number]) [address] [place] [address], [place] [address] BASIC METABOLIC PANL Collected: 12/29/2024 2:39 PM Status: COMPLETED Source: [facility] TYPE CODE TESTS RESULT OUT OF RANGE REFERENCE UNITS LAB NA(LOINC) SODIUM 136 134-146 mmol/L LAB K(LOINC) POTASSIUM 3.5 3.5-5.0 mmol/L LAB CL(LOINC) CHLORIDE 99 98-109 mmol/L LAB CO2(LOINC) CARBON DIOXIDE 25 22-32 mmol/L LAB AGAP(LOINC) ANION GAP 12 5-15 mmol/L LAB BUN(LOINC) BLOOD UREA NITROGEN 29 High 5-23 mg/dL LAB CRET(LOINC) CREATININE 0.59 0.40-1.00 mg/dL Result Comment: METHOD TRACE ABLE TO IDMS STANDARD LAB GLU(LOINC) GLUCOSE 112 High 65-99 mg/dL LAB CA(LOINC) CALCIUM 9.2 8.5-10.5 mg/dL LAB EGFR(LOINC) eGFR (CKD-EPI) NON-RACE DEPENDENT >90 >59 ml/min/1. 73sq.m Result Comment: Reported eGFR is based on the CKD-EPI 2020 equation that does not use a race coefficient. Performed By: #### CBCA, BMP #### [facility] ([id number]) [address] [place] [address], [place] [address] RUBELLA AB, IGG Collected: 5 2:00 PM Status: F Source: [facility] TYPE CODE TESTS RESULT OUT OF RANGE REFERENCE UNITS LAB RADHA(LOINC) Rubella Ab, IgG 104.0 IU/mL Result Comment: <10 NON REACTIVE Negative for Anti-Rubella IgG >=10 REACTIVE Positive for Anti Rubella IgG The presence of IgG antibody to Rubella virus is an indication of previous exposure either by prior infection or vaccination. Performed By: #### RADHA, FEDE , BRIJESH, VZI #### [employer] [address] [place] [id number] Grinder Set Up Operator Thread: Pedro Hand MD MEASLES (RUBEOLA) IM Collected: 025 2:00 PM Status: F Source: [facility] TYPE CODE TESTS RESULT OUT OF RANGE REFERENCE UNITS LAB FEDE(LOINC) Measles (Rubeola) Im 19.03 >1.09 Result Comment: Interpretation: IMMUNE Reference Range: <0.91 Not Immune 0.91-1.09 Equivocal >1.09 Immune Performed By: #### RADHA, FEDE , BRIJESH, VZI #### [employer] [address] [place] [id number] Grinder Set Up Operator Thread: Pedro Hand MD MUMPS,IMMUN,AB Collected: 5 2:00 PM Status: F Source: [facility] TYPE CODE TESTS RESULT OUT OF RANGE REFERENCE UNITS LAB BRIJESH(LOINC) Mumps,Immun, Ab 5.15 >1.09 Result Comment: Interpretation: IMMUNE Reference Range: <0.91 Not Immune 0.91-1.09 Equivocal >1.09 Immune Performed By: #### FEDE GARCIA MUI, VZI #### [employer] [facility] [place] [address] Grinder Set Up Operator Thread: Pedro Hand MD VZ IMMUNITY Collected: 2:00 PM Status: F Source: [facility] TYPE CODE TESTS RESULT OUT OF RANGE REFERENCE UNITS LAB VZI(LOINC) VZ Immunity 3.41 >1.09 Result Comment: Interpretation: IMMUNE Reference Range: <0.91 Not Immune 0.91-1.09 Equivocal >1.09 Immune Performed By: #### FEDE GARCIA MUI, VZI #### [employer] [address] [place] [address] Grinder Set Up Operator Thread: Pedro Hand MD URINE CULTURE Observed: 09/10/2024 11:55 AM Status: F Source: [facility] <9,000 colonies/ml mixed bacterial skin contaminants 2 Days PERFORMED BY: [place] [address] PATHOLOGIST PLANT SAFETY LEADER JOLANTA BOSCH M.D. Performed By: #### CUU #### [address] ALLERGIES DATE TYPE / CODE NAME / CODE REACTION SEVERITY SOURCE Drug Class/[id number](SNO MED CT) NO KNOWN ALLERGIES [facility] ENCOUNTERS ADMIT/DISCHARGE ACCOUNT NUMBER ADMITTING ENCOUNTER CLASS LOCATION SOURCE 03/06/2025/03/06/20 [id number] Ambulatory Building:[facility] 02/23/2025/02/24/20 [id number] Ambulatory Building:[facility] 02/15/2025/02/16/20 [id number] Ambulatory Building:[facility] 12/29/2024/12/30/19 [id number] Emergency Building:[facility]_ EDRoom: 9Bed: [address] [facility] 11/15/2024/03/04 [id number] Ambulatory Building:[facility] 11/08/2024/11/08/19 [id number] Ambulatory Building:[facility] 09/10/2024/09/10/20 [id number] NON STAFF [facility] 08/22/2024/08/22/20 24 [id number] Ambulatory Building:[facility] 08/17/2024/08/17/20 24 [id number] Ambulatory Building:[facility] 05/25/2024/05/25/20 24 [id number] Ambulatory Building:[facility] 03/22/2024/03/22/20 24 [id number] [facility] PAYERS ENCOUNTER GUARANTOR PAYER SUBSCRIBER SOURCE 03/06/2025 [facility]: [place] [address]Tel: (HP) (WP) Primary Insurance:BCBSPolicy Number: [id number] Date:2018-09-14 REGAN [facility]: [id number] [address] [facility] 02/23/2025 [facility]: [address]: (HP) (WP) Primary Insurance:BCBSPolicy Number: [id number] Date:2018-09-14 [facility]: [id number] [address] [facility] 02/15/2025 [facility]: [place] [id number]: (HP) (WP) Primary Insurance:BCBSPolicy Number: [id number] Date:2018-09-14 [facility]: [id number] [address] [place] [address] [facility] 12/29/2024 [facility]: [address], [place] [address]Fky: (HP) Primary Insurance:[facility] HMO/PPO/TRUSTPolicy Number: [id number] Date:2001-02-26 [facility]: [id number] [address] [place] [address] [facility] 11/15/2024 [facility]: [address] [place] [address]Xtc: (HP) (WP) Primary Insurance:BCBSPolicy Number: [id number] Date:2018-09-14 [facility]: [id number] [address] [place] [address] [facility] 11/08/2024 [facility]: [address], [place] [address]Mom: (HP) Primary Insurance:HB SPECIALTY BILLINGPolicy Number: [id number] Date:2024-11-08 [facility]: [id number] [address], [place] [address]Fbp: (HP) [facility] 09/10/2024 [place] [id number] [place] [address]Ldi: (HP) Primary Insurance:Self PayPolicy Number: Effective Date:2024-09-10 [facility] 08/22/2024 [facility]: [address] [place] [address]Xzd: (HP) (WP) Primary Insurance:BCBSPolicy Number: [id number] Date:2018-09-14 REGAN [facility]: [id number] [address] [place] [address] [facility] 08/17/2024 [facility]: S [address] [place] [address]Gwe: (HP) (WP) Primary Insurance:BCBSPolicy Number: [id number] Date:2018-09-14 REGAN [facility]: [id number] [address] [place] [address] [facility] 05/25/2024 [facility]: [address] [place] [address]Ink: (HP) (WP) Primary Insurance:BCBSPolicy Number: [id number] Date:2018-09-14 REGAN [facility]: [id number] [address] [place] [address] [facility] 03/22/2024 [facility]: [address] [place] [address]Sxf: (HP) (WP) Primary Insurance:BCBSPolicy Number: [id number] Date:2018-09-14 REGAN [facility]: [id number] [address] [place] [address] [facility] EPIC
[2025-03-21 20:05] VITALS: BP 178/101; PULSE 84; TEMP 36.7; O2SAT 97; BMI 42.3
--- OUTSIDE RECORDS SUMMARY | 2025-03-21 20:05 | XMS_ITS | Encounter Summary ---
Author Organization [facility] Address [address] [place] [address] Care Team Providers Care Director Executive Communications Name Role Phone Charan Quinn MD Primary Care Provider [phone] Charan Quinn MD Primary Care Provider [phone] Bijal Antunez SCENE SHIFTER Unavailable [phone] Bijal Antunez SCENE SHIFTER Unavailable [phone] Encounter Details Date Type Department Care Team (Late st Contact Info) Description 08/22/2023 Abstract [facility] [address] [place] [address] Bijal Antunez SCENE SHIFTER [address] [place] [address] Social History Tobacco Use Types Packs/Day Years [...] any clubs o r organizations such as catholic groups, unions, fraternal or athletic groups, [...] Recorded Patient Health Questionnaire-2 Score 0 08/17/2023 [facility] - Occupational [...] Visit [facility] [address] [place] [address] Bijal Antunez NP [address] [place] [address] 02/22/2026 11:10 AM EDT Office Visit [facility] [address] [place] [address] Rose Taylor PA [address] [place] [address] documented as of this encounter Visit Diagnoses Not on filedocumented in this encounter Care Teams Director Executive Communications Relationship Specialty Start Date End Date Charan Quinn MD PCP - General Cardiology 09/14/22 01/19/24 Charan Quinn MD [address] [place] [address] PCP - General Family Medicine 01/20/24 Bijal Antunez NP [address] [place] [address] PCP - [employer] 12/14/23 Bijal Antunez NP [address] [place] [address] Nurse Practitioner Family Medicine 01/20/24 documented as of this encounter
--- OUTSIDE RECORDS SUMMARY | 2025-03-21 20:05 | XMS_ITS | Encounter Summary ---
Author Organization [facility] Address [address] [place] [address] Care Team Providers Care Tobacco Prevention Health Educator Name Role Phone Charan Quinn MD Primary Care Provider [phone] Charan Quinn MD Primary Care Provider [phone] Bijal Antunez YARD SPOTTER Unavailable [phone] Bijal Antunez YARD SPOTTER Unavailable [phone] Encounter Details Date Type Department Care Team (Late st Contact Info) Description 04/15/2023 Orders Only [facility] [address] [place] [phone] Anitha Mcdonald RN [address] [place], [place] [id number] Acquired hypothyroidism (Primary Dx) Social History Tobacco [...] [facility] [address] [place] [address] Bijal Antunez, SIENNA [address] [place] [address] 02/22/2026 11:10 AM EDT Office Visit [facility] [address] [place] [address] Rose Taylor PA [address] [place] [address] Scheduled Orders Name Type Priority Associated Diagnoses Orde r Schedule TSH Lab Routine Acquired hypothyroidism Expected: 04/15/2023 (Approximate), Expires: 04/15/2024 documented as of this encounter Visit Diagnoses Diagnosis Acquired hypothyroidism- Primary Unspecified hypothyroidism documented in this encounter Care Teams Tobacco Prevention Health Educator Relationship Specialty Start Date End Date Charan Quinn MD PCP - General Cardiology 09/14/22 01/19/24 Charan Quinn MD [address] [place] [address] PCP - General Family Medicine 01/20/24 Bijal Antunez NP [address] [place] [address] PCP - [place] [employer] 12/14/23 Bijal Antunez NP [address] [place] [address] Nurse Practitioner Family Medicine 01/20/24 documented as of this encounter
--- OUTSIDE RECORDS SUMMARY | 2025-03-21 20:05 | XMS_ITS | Encounter Summary ---
Author Organization [facility] Address [address] [place] [address] Care Team Providers Care Film Sound Coordinator Name Role Phone Charan Quinn MD Primary Care Provider [phone] Bijal Antunez WELT INSOLE CHANNELER Unavailable [phone] Bijal Antunez WELT INSOLE CHANNELER Unavailable [phone] Encounter Details Date Type Department Care Team (Late st Contact Info) Description 01/25/2024 Orders Only [facility] [address] [facility] [address] [place] [address] Kamilah Martinez MD [address] [facility] [address] [place], [place] [id number] Social History Tobacco Use Types Packs/Day Years [...] How often do you attend chur or yazdanism services? Never 08/18/2023 Do you belong to [...] Recorded Patient Health Questionnaire-2 Score 0 01/20/2024 [facility] of Occupat ional Health - Occupational [...] in a fdc (including now)? No 08/18/2023 Comments No Sex [...] Office Visit [facility] [address] [place] [address] Bijal Antunez NP [address] [place] [address] 02/22/2026 11:10 AM EDT Office Visit [facility] [address] [place] [address] Rose Taylor PA [address] [place] [address] documented as of this encounter Procedures Procedure Name Priority Date/Time Associated Diagnosis Comments SCANNED LABS Routine 04/17/2023 11:38 AM EDT documented in this encounter Results * SCANNED LABS (04/17/2023 11:38 AM EDT) us Kamilah Martinez MD LAB CHG PERFORMABLES Final Re sult documented in this encounter Visit Diagnoses Not on filedocumented in this encounter Care Teams Film Sound Coordinator Relationship Specialty Start Date End Date Charan Quinn MD [address] [place] [address] PCP - General Family Medicine 01/20/24 Bijal Antunez NP [address] [place] [address] PCP - [facility] 12/14/23 Bijal Antunez NP [address] [place] [address] Nurse Practitioner Family Medicine 01/20/24 documented as of this encounter
--- OUTSIDE RECORDS SUMMARY | 2025-03-21 20:05 | XMS_ITS | Encounter Summary ---
Author Organization [facility] Address [address] [facility] [place] [address] Care Team Providers Care Furnace Operator Oil Or Gas Name Role Phone Charan Quinn MD Primary Care Provider [phone] Charan Quinn MD Primary Care Provider [phone] Bijal Antunez RN FIRST ASSISTANT Unavailable [phone] Bijal Antunez RN FIRST ASSISTANT Unavailable [phone] Encounter Details Date Type Department Care Team (Late st Contact Info) Description 08/19/2023 Orders Only [facility] [address] [facility] [facility] [address] [place] [address] Bijal Antunez, RN FIRST ASSISTANT [address] [place] [address] Social History Tobacco Use Types [...] How often do you attend chur or christian services? Never 08/18/2023 Do you belong to any clubs o r organizations such as jehovah's witness groups, unions, fraternal or athletic groups, or [...] Recorded Patient Health Questionnaire-2 Score 0 08/17/2023 [facility] [place] of Occupat ional Health - Occupational Stress [...] place to sleep or slept in a prison (including now)? No 08/18/2023 Comments No Sex [...] Visit [facility] [address] [place] [address] Bijal Antunez NP [address] [place] [address] 02/22/2026 11:10 AM EDT Office Visit [facility] [address] [place] [address] Rose Taylor PA [address] [place] [address] documented as of this encounter Procedures Procedure Name Priority Date/Time Associated Diagnosis Comments MAMM SCREENING W CAD Routine 10/28/2022 8:57 AM EST documented in this encounter Results * MAMM SCREENING W CAD (10/28/2022 8:57 AM EST) Anatomical Region Laterality Modality Radiographic Yancy ging us Bijal Antunez RN FIRST ASSISTANT IMG XR PROCEDURES Final Result documented in this encounter Visit Diagnoses Not on filedocumented in this encounter Care Teams Furnace Operator Oil Or Gas Relationship Specialty Start Date End Date Charan Quinn MD PCP - General Cardiology 09/14/22 01/19/24 Charan Qunin MD [address] [place] [address] PCP - General Family Medicine 01/20/24 Bijal Antunez NP [address] [place] [address] PCP - [place] [employer] 12/14/23 Bijal Antunez NP [address] [place] [address] Nurse Practitioner Family Medicine 01/20/24 documented as of this encounter
--- OUTSIDE RECORDS SUMMARY | 2025-03-21 20:05 | XMS_ITS | Clinical Summary ---
Author Organization [facility] Address [address] [place] [address] Care Team Providers Care Telesales Manager Name Role Phone Charan Quinn MD Primary Care Provider [phone] AicBijal kaiser VEGETABLE GROWER Unavailable [phone] Bijal Antunez VEGETABLE GROWER Unavailable [phone] Allergies Active Allergy Reactions Criticality Noted [...] 90 tablet 1 02/16/20 25 2024 Active ibuprofen 800 MG tabletIndications:Ot her chronic pain Take 1 tablet (800 mg) by mouth 3 (three) times a day as needed for moderate pain 90 tablet 1 02/07/20 25 2024 HYDROcodone-acetamin ophen ([place]) 5-325 MG tabletIndications:Po stprandial RUQ pain,Mass of gallbladder Take 1 tablet by mouth every 8 (eight) hours if needed for severe pain for up to 5 days 15 tablet 03/03/20 25 2024 ondansetron (Zofran) 4 MG tablet Take 4 mg by mouth every 8 (eight) hours if needed for nausea 03/02/20 25 2024 Discontin ued(Reord er) ondansetron (Zofran) 4 MG tabletIndications:Po stprandial RUQ pain,Abnormal gallbladder ultrasound Take 1 tablet (4 mg) by mouth every 8 (eight) hours if needed for nausea for up to 10 days 30 tablet 03/06/202024 Active Problems Problem Noted Date Diagnosed Date [...] on GBUS, wanted to observe, was in [facility] ER on 03/01/25 Had another US, [...] Encounters Date Type Department Care Team Description 03/13/2025 Clinisync Result Encounter [facility] External Department Unsolicited Bijal Antunez NP 03/10/2025 Clinisync Result Encounter [facility] External Department Unsolicited Bijal Antunez NP 03/06/2025 3:40 PM EDT Office Visit [facility] [address] [place] [phone] Bijal Antunez NP Postprandial RUQ pain (Primary Dx); Abnormal gallbladder ultrasound; Mass of gallbladder; Class 3 severe obesity due to excess calories without serious comorbidity with body mass index (BMI) of 40.0 to 44.9 in adult ([facility]) 03/06/2025 Abstract [facility] [address] [place] [address] Bijal Antunez NP 03/05/2025 Travel 03/03/2025 Refill [facility] [address] [place] [address] Bijal Antunez NP Postprandial RUQ pain (Primary Dx); Mass of gallbladder 03/03/2025 Orders Only [facility] [address] [place] [address] Bijal Antunez NP Mass of gallbladder (Primary Dx) 03/02/2025 Telephone [facility] [address] [place] [address] Bijal Antunez NP 03/02/2025 Orders Only [facility] [address] [place] [address] Bijal Antunez NP Postprandial RUQ pain (Primary Dx); Abnormal gallbladder ultrasound 03/02/2025 Abstract [facility] [address] [place] [address] Bijal Antunez NP 03/02/2025 Orders Only [facility] [address] [place] [address] Jen Rodgers PA 02/23/2025 11:10 AM EDT Office Visit [facility] [address] [place] [address] Rose Taylor PA Melanocytic nevus of upper extremity, unspecified laterality (Primary Dx); Melanocytic nevus of face, other location; Melanocytic nevus of trunk; Lentigo simplex; Seborrheic keratosis; Acrochordon 02/23/2025 Bamboo flowsheet [facility] [address] [place] [address] Rose Taylor PA 02/23/2025 Travel 02/21/2025 Travel 02/15/2025 8:40 AM EDT Office Visit [facility] [address] [place] [address] Bijal Antunez NP Primary hypertension (Primary Dx); Postprandial RUQ pain; Bilateral lower extremity edema; Class 3 severe obesity due to excess calories without serious comorbidity with body mass index (BMI) of 40.0 to 44.9 in adult ([facility]); Mixed hyperlipidemia ; Pure hyperglyceridemia ; Essential (primary) hypertension ; Acquired hypothyroidism ; Other chronic pain; Vitamin D deficiency; Thyroid nodule ; Neoplasm of uncertain behavior 02/15/2025 Bamboo flowsheet [facility] [address] [place] [address] Bijal Antunez NP 02/15/2025 Travel 02/08/2025 Refill [facility] [address] [place] [address] Bijal Antunez NP Rash and other nonspecific skin eruption 02/05/2025 Refill [facility] [address] [place] [address] Bijal Antunez NP Other chronic pain 01/12/2025 Clinisync Result Encounter [facility] External Department Unsolicited Klaudia Barakat DO 12/30/2024 Refill [facility] [address] [place] [address] Bijal Antunez NP Primary hypertension (Primary Dx) 12/29/2024 Telephone [facility] [address] [place] [address] Bijal Antunez NP from Last 3 [...] Recorded Patient Health Questionnaire-2 Score 0 08/22/2024 [facility] [place] of Occupat ional [facility] - Occupational Stress Questionnaire Answer Date Recorded [...] in a mcfp (including now)? No 08/18/2023 Housing Stability Vital [...] time in the past 12 m [facility], were you homeless or living in a mcfp (including now)? No 11/09/2024 Comments No Sex [...] Office Visit [facility] [address] [place] [address] Bijal Antunez NP [address] [place] [address] 02/22/2026 11:10 AM EDT Office Visit [facility] [address] [place] [address] Rose Taylor PA [address] [place] [address] Health Maintenance Due Date Last Done Comments CT Colonography 1965 FIT-DNA 1965 FIT 1965 FOBT 1965 Sigmoidoscopy 1965 Mammogram 01/12/2026 01/12/2025, 03, 12/01/2023, Additional history exists Colonoscopy 01/12/2029 01/12/2019 Colorectal Cancer Screening 01/12/2029 Pap Smear Discontinued 08/17/2023, 08/12/2022 Cervical Cancer Screening Discontinued HPV/Cotest Discontinued 08/22/2024 Influenza Vaccine Discontinued Procedures Procedure Name Priority Date/Time Associated Diagnosis Comments ALL THYROXINE (T4) FREE Routine 03/13/2025 10:52 AM EDT [facility] VITAMIN D 25 [place] Routine 03/13/2025 1 0:52 AM EDT ALL THYROID STIM HORMONE Routine 03/13/2025 10:52 AM EDT ALL LIPID PROFILE (FASTING) Routine 03/13/2025 10:52 AM EDT [facility] CMP (CMP) (FOR REMOTE [facility] USE) Routine 03/13/2025 10:52 AM EDT US THYROID 03/10/2025 12:56 PM EDT US RUQ ABDOMEN ANY ORGAN ANY QUADRANT [id number] Routine 03/02/2025 9:05 AM EDT MM TOMOSYNTHESIS [...] Recently Relevant to Health Maintenance Results * [facility] VITAMIN D 25 [place] (03/13/2025 10:52 AM EDT) VITAMIN D 27.7 ng/mL [facility] Comment: <20 ng/mL Vit D deficient 20-<30 ng/mL Vit D insufficient 30-100 ng/mL Vit D sufficient >100 ng/mL Potential Toxicity 03/13/2025 10:5 2 AM EDT 03/13/2025 10:53 AM EDT Narrative CLINISYNC - 03/13/2025 12:22 PM EDT us Bijal Antunez NP CLINISYNC Final Result CLINISYNC [facility] * (ABNORMAL) [facility] CMP (CMP) (FOR REMOTE [facility] USE) (03/13/2025 10:52 AM EDT) SODIUM 145 136 - 145 mmol/L TBH POTASSIUM 3.5 3.5 - 5.1 mmol/L TBH CHLORIDE 104 98 - 107 mmol/L TBH CARBON DIOXIDE 31.9 21.0 - 32.0 mmol/L TBH ANION GAP 12.6 TBH GLUCOSE 109(H) 74 - 106 mg/dL TBH BLOOD UREA NITROGEN 19.0(H) 7.0 - 18.0 mg/dL TBH CREATININE 0.72 0.55 - 1.02 mg/dL TBH TBH EGFR-AF ERITREAN >60 >=60 mL/min/1. 73m 2 TBH TBH EGFR-NON AF ERITREAN >60 >=60 mL/min/1. 73m 2 TBH BUN CREATININE RATIO 26.4 TBH CALCIUM 9.3 8.5 - 10.1 mg/dL TBH BILIRUBIN TOTAL 0.5 0.2 - 1.0 mg/dL TBH ASPARTATE AMINO TRANSFERASE 19 15 - 37 U/L TBH ALANINE AMINOTRANSFERASE 23 14 - 59 U/L TBH ALKALINE PHOSPHATASE 87 46 - 116 U/L TBH TOTAL PROTEIN 7.1 6.4 - 8.2 g/dL TBH ALBUMIN LEVEL 3.3(L) 3.4 - 5.0 g/dL TBH GLOBULIN 3.8 g/dL TBH ALBUMIN GLOBULIN RATIO 0.9 TBH 03/13/2025 10:5 2 AM EDT 03/13/2025 10:53 AM EDT Narrative CLINISYNC - 03/13/2025 11:33 AM EDT us Bijal Antunez NP CLINISYNC Final Result CLINISYNC [facility] * ALL THYROXINE (T4) FREE (03/13/2025 10:52 AM EDT) FREE T4 1.14 0.76 - 1.46 ng/dL TB 03/13/2025 10:5 2 AM EDT 03/13/2025 10:53 AM EDT Narrative CLINISYNC - 03/13/2025 12:22 PM EDT Bijal Antunez VEGETABLE GROWER CLINISYNC Final Result Performing Organization Address [facility]/ZIP Co de Phone Number [facility] * ALL THYROID STIM HORMONE (03/13/2025 10:52 AM EDT) THYROID STIMULATING HORMONE 0.694 0.358 - 3.740 uIU/mL TB 03/13/2025 10:5 2 AM EDT 03/13/2025 10:53 AM EDT Narrative CLINISYNC - 03/13/2025 11:33 AM EDT Bijal Abdiluan EL CLINISYNC Final Result Performing Organization Address [facility] Phone Number [facility] * (ABNORMAL) ALL LIPID PROFILE (FASTING) (03/13/2025 10:52 AM EDT) TRIGLYCERIDES 205(H) <=150 mg/dL TBH CHOLESTEROL 148 <=200 mg/dL TB HDL CHOLESTEROL 50 40 - 60 mg/dL TB Comment: > or =60 mg/dl - LOW CARDIOVASCULAR RISK <40 mg/dl - HIGH CARDIOVASCULAR RISK LDL CHOLESTEROL CALCULATED 57.0 mg/dL TB Comment: <100 mg/dl OPTIMAL 100-129 mg/dl NEAR OR ABOVE OPTIMAL 130-159 mg/dl BORDERLINE HIGH 160-189 mg/dl HIGH >190 mg/dl VERY HIGH VLDL CHOLESTEROL 41.0 mg/dL TB CHOL HDL RATIO 3.0 TB Comment: 3.3 - 4.4 LOW RISK 4.4 - 7.1 AVERAGE RISK 7.1 - 11.0 MODERATE RISK >11.0 HIGH RISK 03/13/2025 10:5 2 AM EDT 03/13/2025 10:53 AM EDT Narrative CLINISYNC - 03/13/2025 11:33 AM EDT us Bijal NASH Final Result [facility]RE[facility] * US thyroid (03/10/2025 12:56 PM EDT) Anatomical Region Laterality Modality Head, Neck Ultrasound 03/10/2025 12:5 6 PM EDT Narrative 03/10/2025 12:59 [place] [address] Ultrasound Report Signed Patient: WAYNE LOZADA MR#: [id number] : 1965 Acct:[id number] Age/Sex: 59 / F ADM Date: 03/10/25 Loc: US Attending Dr: Bijal Antunez NP Ordering Physician: Bijal Antunez NP Date of Service: 03/10/25 Procedure(s): US thyroid Accession Number(s): [id number] cc: Bijal Antunez NP [address] [address] Patient Name: WAYNE LOZADA MRN: [id number] date: 1965 Sex: F Assigned Patient Location: US Current Patient Location: US Accession/Order Number: [id number] Exam Date: 03/10/2025 12:50 Report Date: 03/10/2025 [...] Soni M.D. 03/10/2025 12:56 PM Dictation Location: [place] [address] Electronically authenticated by: [id number] Y Date: 03/10/2025 12:56 Dictated By: Marv Soni M.D. Signed By: 03/10/25 1259 DD/ 1256 TD/TT: Assessment Analyst: Procedure Note Radiology, Radiologist, MD - 03/10/[address] [address] Ultrasound Report Signed Patient: WAYNE LOZADA KMR#: [id number] : 1965Acct:[id number] Age/Sex: 59 / FADM Date: 03/10/25 Loc: US Attending Dr: Bijal Antunez NP Ordering Physician: Bijal Antunez NP Date of Service: 03/10/25 Procedure(s): US thyroid Accession Number(s): [id number] cc: Bijal Antunez NP The [address] [address] Patient Name: WAYNE LOZADA MRN: [id number] date: 1965 Sex: F Assigned Patient Location: US Current Patient Location: US Accession/Order Number: [id number] Exam Date: 03/10/2025 12:50 Report Date: 03/10/2025 [...] Soni M.D. 03/10/2025 12:56 PM Dictation Location: [place] [address] Electronically authenticated by: [id number] Y Date: 2:56 Dictated By: Marv Soni M.D. Signed By:03/10/25 1259 DD/ 1256 TD/TT: Assessment Analyst: us Bijal Antunez NP IMG US PROCEDURES Final Result * US RUQ ABDOMEN ANY ORGAN ANY QUADRANT [id number] (03/02/2025 9:05 AM EDT) Anatomical Region Laterality Modality Radiographic Yancy ging us Jen ROSADO IMG XR PROCEDURES Final Result * MM TOMOSYNTHESIS SCREENING BI (01/12/2025 4:32 PM EDT) Anatomical Region Laterality Modality Other 01/12/2025 4:32 PM EDT Narrative 01/12/2025 4:33 [place] [address] Mammography Report Signed Patient: WAYNE LOZADA MR#: [id number] : 1965 Acct:[id number] Age/Sex: 59 / F ADM Date: 01/12/25 Loc: MAMMO Attending Dr: KLAUDIA BARAKAT Ordering Physician: KLAUDIA BARAKAT Results: Date of Service: 01/12/25 Follow Up: Procedure(s): MM tomosynthesis screening BI Accession Number(s): [id number] cc: Bijal Antunez VEGETABLE GROWER; KLAUDIA BARAKAT Patient Name: WAYNE LOZADA MR#: [id number] : 1965 Exam Date: 01/12/2025 Ordering Doctor: [...] LOCATION: The [facility] BREAST COMPOSITION: There are scattered areas of [...] Signed By: 01/12/25 1633 DD/ 31 TD/TT: Assessment Analyst: Procedure Note Radiology, Radiologist, MD - 01/12/2025 The [place] [id number] Mammography Report Signed Patient: WAYNE LOZADA KMR#: [id number] : 1965Acct:[id number] Age/Sex: 59 / FADM Date: 01/12/25 Loc: MAMMO Attending Dr: KLAUDIA BARAKAT Ordering Physician: KLAUDIA BARAKATResults: Date of Service: 01/12/25Follow Up: Procedure(s): MM tomosynthesis screening BI Accession Number(s): [id number] cc: Bijal Antunez VEGETABLE GROWER; KLAUDIA BARAKAT Patient Name: WAYNE LOZADA MR#: [id number] : 1965 Exam Date: 01/12/2025 Ordering Doctor: DR KLAUDIA BARAKAT RADIOLOGY REPORT PROCEDURE: MM TOMOSYNTHESIS SCREENING BI COMPARISON: MM TOMOSYNTHESIS SCREENING BI, 12/01/2023. MG MAMM [id number] ISABELLA CAD, 10/28/2022. MG MAMM SCREEN 3D [...] LOCATION: The [facility] BREAST COMPOSITION: There are scattered areas of [...] Zeke Lux M.D. Signed By:01/12/25 1633 DD/ 163 TD/TT: Assessment Analyst: Klaudia Barakat DO CLINISYNC IMAGING Final Resu [...] 08/26/2024 3:06 PM EST Performed at: - [address] [id number] Sole Conditioner: Vielka Stanley MD, Phone: [phone] Performed at: - [address] [id number] Sole Conditioner: Vielka Stanley MD, Phone: [phone] Specimen Comment: [id number] Specimen Comment: No. of containers..01 ThinPrep Vial [...] has been evaluated with computer assisted technology. RETORT FIREMAN [facility] Comment: DMK, CT(ASCP) CT screening location: [facility] [place] [address]. (ALWAYS MESSAGE) [facility] Comment: EXPLANATORY NOTE: The [...] Not Detected Not Detected [facility] Comment: Methodology: Telesales Agent-Mediated Amplification This assay detects E6/E7 viral messenger RNA (mRNA) from 14 high-risk HPV types (16,18,31,33,35,39,45,51,52,56,58,59,66,68). Cervical sources are required for HPV testing. If a vaginal source from a patient who has had a total hysterectomy with removal of cervix was submitted, please contact the testing laboratory for alternative testing options. For additional information, please refer to http://education.Conzoom/faq/DTX256q9 (This link if provided for information/ educational purposes only.) Swab 08/17/2023 3:01 PM EST 08/18/2023 4:11 AM EST Narrative Resulting Agency Comment Performing Organization Information Site ID: [id number] Name: [facility] Address: [address] [place] [address] Director: Zhang Diez MD Klaudia Barakat DO LAB CYTOLOGY ORDERABLES Lainey pena Result [facility] from Last 3 Months or Most Recently Relevant to Health Maintenance Insurance [employer]BS Care Teams Telesales Manager Relationship Specialty Start Date End Date Charan Quinn MD [address] [place] [address] PCP - General Family Medicine 01/20/24 Bijal Antunez NP [address] [place] [address] PCP - [place] [employer] 12/14/23 Bijal Antunez NP [address] [place] [address] Nurse Practitioner Family Medicine 01/20/24
--- OUTSIDE RECORDS SUMMARY | 2025-03-21 20:05 | XMS_ITS | Encounter Summary ---
Author Organization [facility] Address [address] [place] [address] Care Team Providers Care Certified Pharmacy Technician Name Role Phone Charan Quinn MD Primary Care Provider [phone] Bijal Antunez FILTRATION OPERATOR Unavailable [phone] Bijal Antunez FILTRATION OPERATOR Unavailable [phone] Reason for Visit * Reason Comments Med Refill Encounter Details Date Type Department Care Team (Late st Contact Info) Description 04/27/2024 Refill [facility] [address] [place] [address] Bijal Antunez, FILTRATION OPERATOR [address] [place] [address] Class 3 severe obesity due to excess calories without serious comorbidity with body mass index (BMI) of 45.0 to 49.9 in adult ([facility]) Social History Tobacco Use Types [...] you attend chur ch or episcopalian services? Never 08/18/2023 Do you belong to any clubs o r organizations such as restorationism groups, unions, fraternal or athletic groups, or [...] Recorded Patient Health Questionnaire-2 Score 0 01/20/2024 [facility] Occupat ional Health - Occupational [...] place to sleep or slept in a correction (including now)? No 08/18/2023 Comments No Sex and Gender Information Value Date Recorded Sex Assigned at Not on file Legal Sex Female 7:24 PM EDT Gender Identity Not on file Sexual Orientation Not on file documented as of this encounter Miscellaneous Notes * Telephone Encounter - Bijal Antunze NP - 04/29/2024 7:58 AM EDT Med dose changed documented in this encounter Plan of Treatment Upcoming Encounters Date Type Department Care Team (Late st Contact Info) Description 05/18/2025 8:40 AM EDT Office Visit [facility] [address] [place] [address] Bijal Antunez NP [address] [place] [address] 02/22/2026 11:10 AM EDT Office Visit [facility] [address] [place] [address] Rose Taylor PA [address] [place] [address] documented as of this encounter Visit Diagnoses Diagnosis Class 3 severe obesity due to excess calories without serious comorbidity with body mass index (BMI) of 45.0 to 49.9 in adult ([facility]) documented in this encounter Care Teams Certified Pharmacy Technician Relationship Specialty Start Date End Date Charan Quinn MD [address] [place] [address] PCP - General Family Medicine 01/20/24 Bijal Antunez NP [address] [place] [address] PCP - [facility] 12/14/23 Bijal Antunez NP [address] [place] [address] Nurse Practitioner Family Medicine 01/20/24 documented as of this encounter
--- OUTSIDE RECORDS SUMMARY | 2025-03-21 20:05 | XMS_ITS | Clinical Summary ---
Author Organization TBS tem Address [id number] [address] [place] [address] Care Team Providers Care Rubber Compounder Formulator Name Role Phone Bijal Antunez APRN-ACTIVITY AIDE Primary Care Provider Allergies No known active [...] EDT - 12/29/2024 6:44 PM EDT Emergency [facility] - Emergency [address] [place] [address] Jeremi Rojas MD Elkhatib, Ahmad M, Angioedema, [...] - 11.0 X10E9/L 12/29/2024 2:48 PM EDT [facility] RBC count 3.95 3.80 - 5.20 X10E12/L 12/29/2024 2:48 PM EDT [facility] Hemoglobin 12.6 11.7 - 15.5 g/dL 12/29/2024 2:48 PM EDT [facility] Hematocrit 35.9 35 - 47 % 12/29/2024 2:48 PM EDT [facility] MCV 91 80 - 100 fL 12/29/2024 2:48 PM EDT [facility] MCH 32.0 27 - 34 pg 12/29/2024 2:48 PM EDT [facility] MCHC 35.1 32 - 36 g/dL 12/29/2024 2:48 PM EDT [facility] RDW 13.3 11.5 - 15.0 % 12/29/2024 2:48 PM EDT [facility] Platelets 358 150 - 450 X10E9/L 12/29/2024 2:48 PM EDT [facility] MPV 6.3(L) 7 - 12 fL 12/29/2024 2:48 PM EDT [facility] % neutrophils 74.6 % 12/29/2024 2:48 PM EDT [facility] % lymphocytes 15.8 % 12/29/2024 2:48 PM EDT [facility] % monocytes 6.6 % 12/29/2024 2:48 PM EDT [facility] % eosinophils 2.7 % 12/29/2024 2:48 PM EDT [facility] % Basophils 0.3 % 12/29/2024 2:48 PM EDT [facility] Neutrophils Absolute (A) 5.2 1.5 - 6.6 X10E9/L 12/29/2024 2:48 PM EDT [facility] Lymphocytes Absolute 1.1 1.0 - 3.5 X10E9/L 12/29/2024 2:48 PM EDT [facility] Monocytes Absolute 0.5 0 - 0.9 X10E9/L 12/29/2024 2:48 PM EDT [facility] Eosinophils Absolute 0.2 0.0 - 0.4 X10E9/L 12/29/2024 2:48 PM EDT [facility] Basophils Absolute 0.0 0.0 - 0.2 X10E9/L 12/29/2024 2:48 PM EDT [facility] Blood Blood / Unknown 12/29/2024 2 :39 PM EDT 12/29/2024 2:42 PM EDT us Jeremi Rojas MD LAB BLOOD ORDERABLES Final Re sult [facility] [address] [place] [address], [place] [address] * (ABNORMAL) Basic Metabolic Panel (12/29/2024 2:39 PM EDT) Sodium 136 134 - 146 mmol/L 12/29/2024 2:54 PM EDT [facility] Potassium, Bld 3.5 3.5 - 5.0 mmol/L 12/29/2024 2:54 PM EDT [facility] Chloride 99 98 - 109 mmol/L 12/29/2024 2:54 PM EDT [facility] CO2 25 22 - 32 mmol/L 12/29/2024 2:54 PM EDT [facility] Anion gap 12 5 - 15 mmol/L 12/29/2024 2:54 PM EDT [facility] BUN 29(H) 5 - 23 mg/dL 12/29/2024 2:55 PM EDT [facility] Creatinine 0.59 0.40 - 1.00 mg/dL 12/29/2024 2:55 PM EDT [facility] Comment:METHOD TRACEABLE TO IDMS STANDARD Glucose 112(H) 65 - 99 mg/dL 12/29/2024 2:54 PM EDT [facility] Calcium 9.2 8.5 - 10.5 mg/dL 12/29/2024 2:54 PM EDT [facility] eGFR (CKD-EPI)non-ra ce dependent >90 >59 ml/min/1.7 3sq.m 12/29/2024 2:55 PM EDT [facility] Comment: Reported eGFR is based on the CKD-EPI 2020 equation that does not use a race coefficient. Blood (PLASMA) 12/29/2024 2: 39 PM EDT 12/29/2024 2:42 PM EDT Jeremi Rojas MD LAB BLOOD ORDERABLES [facility] [address] [facility], [place] [address] from Last [address] [place] [address] Care Teams Rubber Compounder Formulator Relationship Specialty Start Date End Date Bijal Antunez, SLAG MOTOR OPERATOR-ACTIVITY AIDE PCP - General Nurse Practitioner 12/29/24
--- OUTSIDE RECORDS SUMMARY | 2025-03-21 20:05 | XMS_ITS | Encounter Summary ---
Author Organization [facility] Address [address] [place] [address] Care Team Providers Care Vascular Tech Name Role Phone Charan Quinn MD Primary Care Provider [phone] Charan Quinn MD Primary Care Provider [phone] Bijal Antunez SPRINKLER HELPER Unavailable [phone] Bijal Antunez SPRINKLER HELPER Unavailable [phone] Encounter Details Date Type Department Care Team (Late st Contact Info) Description 12/02/2023 Clinisync Result Encounter [facility] External Department Unsolicited Bijal Antunez, SPRINKLER HELPER [address] [place] [address] Social History Tobacco Use Types Packs/Day Years [...] How often do you attend chur or mormon services? Never 08/18/2023 Do you belong to any clubs o r organizations such as zoroastrian groups, unions, fraternal or athletic groups, or [...] Recorded Patient Health Questionnaire-2 Score 0 08/17/2023 [facility] [place] of Occupat ional Health - Occupational Stress [...] Visit [facility] [address] [place] [address] Bijal Antunez NP [address] [place] [address] 02/22/2026 11:10 AM EDT Office Visit [facility] [address] [place] [address] Rose Taylor PA [address] [...] EDT Narrative 12/02/2023 9:58 [place] [address] Mammography Report Signed Patient: WAYNE LOZADA MR#: [id number] : 1965 Acct:[id number] Age/Sex: 58 / F ADM Date: 12/01/23 Loc: MAMMO Attending Dr: Bijal Antunez NP Ordering Physician: Bijal Antunez NP Results: Date of Service: 12/01/23 Follow Up: Procedure(s): MM tomosynthesis screening BI Accession Number(s): [id number] cc: Bijal Antunez NP Patient Name: WAYNE LOZADA MR#: [id number] : 1965 Exam Date: 12/01/2023 Ordering Doctor: [...] myeloma cancer at age 74. LOCATION: [facility] BREAST COMPOSITION: Heterogeneously dense,which may obscure [...] Signed By: 12/02/23 0958 DD/ 0957 TD/TT: Cost Estimating Manager: Procedure Note Radiology, Radiologist, MD - 12/02/2023 [place] [address] Mammography Report Signed Patient: WAYNE LOZADA KMR#: [id number] : 1965Acct:[id number] Age/Sex: 58 / FADM Date: 12/01/23 Loc: MAMMO Attending Dr: Bijal Antunez NP Ordering Physician: Bijal Antunez NPResults: Date of Service: 12/01/23Follow Up: Procedure(s): MM tomosynthesis screening BI Accession Number(s): [id number] cc: Bijal Antunez NP Patient Name: WAYNE LOZADA MR#: [id number] : 1965 Exam Date: 12/01/2023 Ordering Doctor: [...] myeloma cancer at age 74. LOCATION: [facility] BREAST COMPOSITION: Heterogeneously dense,which may obscure [...] Deangelo Fontaine M.D. Signed By:12/02/2358 DD/ TD/TT: Cost Estimating Manager: us Bijal Antunez NP [facility] Final Result documented in this encounter Visit Diagnoses Not on filedocumented in this encounter Care Teams Vascular Tech Relationship Specialty Start Date End Date Charan Quinn MD PCP - General Cardiology 09/14/22 01/19/24 Charan Quinn MD [address] [place] [address] PCP - General Family Medicine 01/20/24 Bijal Antunez NP [address] [place] [address] PCP - [facility] 12/14/23 Bijal Antunez NP [address] [place] [address] Nurse Practitioner Family Medicine 01/20/24 documented as of this encounter
--- OUTSIDE RECORDS SUMMARY | 2025-03-21 20:05 | XMS_ITS | Encounter Summary ---
Author Organization [facility] Address [address] [place] [address] Care Team Providers Care Rn Ent Name Role Phone Charan Quinn MD Primary Care Provider [phone] Bijal Antunez WORKERS' COMPENSATION HEARINGS OFFICER Unavailable [phone] Bijal Antunez WORKERS' COMPENSATION HEARINGS OFFICER Unavailable [phone] Encounter Details Date Type Department Care Team (Late st Contact Info) Description 03/02/2025 Abstract [facility] [address] [place] [address] Bijal Antunez WORKERS' COMPENSATION HEARINGS OFFICER [address] [place] [address] Social History Tobacco Use Types Packs/Day Years [...] often do you attend chur ch or religion services? 1 to 4 times per year 11/09/2024 Do you belong to any clubs o r organizations such as cheondoism groups, unions, fraternal or athletic groups, or [...] Recorded Patient Health Questionnaire-2 Score 0 08/22/2024 [facility] [place] of Occupat ional Health - Occupational Stress [...] in a alf (including now)? No 08/18/2023 Housing Stability Vital Sign Answer Derick e Recorded In the last 12 months, was t here a time when you were not able to pay the mortgage or rent on time? No 11/09/2024 In the past 12 months, how m any times have you moved where you were living? 0 11/09/2024 At any time in the past 12 m [facility], were you homeless or living in a alf (including now)? No 11/09/2024 Comments No Sex [...] [facility] [address] [place] [address] Bijla Antunez NP [address] [place] [address] 02/22/2026 11:10 AM EDT Office Visit [facility] [address] [place] [address] Rose Taylor PA [address] [place] [address] documented as of this encounter Visit Diagnoses Not on filedocumented in this encounter Care Teams Rn Ent Relationship Specialty Start Date End Date Charan Quinn MD [address] [place] [address] PCP - General Family Medicine 01/20/24 Bijal Antunez NP [address] [place] [address] PCP - [facility] 12/14/23 Bijal Antunez NP [address] [place] [address] Nurse Practitioner Family Medicine 01/20/24 documented as of this encounter
--- OUTSIDE RECORDS SUMMARY | 2025-03-21 20:05 | XMS_ITS | Encounter Summary ---
Author Organization [facility] Address [address] [place] [address] Care Team Providers Care Child Welfare Assistant Name Role Phone Unavailable Primary Care Provider Unavailabl e Reason for Referral * Imaging (Routine) - Authorized Specialty Diagnoses / Procedures Referred By Contac t Referred To Contact Radiology Diagnoses Mass of gallbladder Procedures MRI ABDOMEN W WO CONTRAST Bijal Antunez APRN - [place] [address] [place] [address] Phone: tel: fax: Referral ID Status Reason Start Date Expiration Date V isits Requested Visits Authorized [id number] Authorized 03/08/2025 03/08/2026 1 1 Encounter Details Date Type Department Care Team (Late st Contact Info) Description 03/08/2025 Transcribe Orders [facility] [address] [place] [address] Bijal Antunez APRN - [place] [address] [place] [address] Mass of gallbladder (Primary Dx) [...] Info) Description 03/28/2025 11:30 AM EDT Appointment [facility] MRI [address] [place] [address] media sched w pt 03/29/2025 1:00 PM EDT Office Visit [facility] GENERAL SURGERY Part of [address] [place] [address] Eri Atkinson DO [address] [facility] [address] [place] [address] Gallbladder Scheduled Orders Name Type Priority Associated Diagnoses Orde r Schedule MRI ABDOMEN W WO CONTRAST Imaging Routine Mass of gallbladder Expected: 03/08/2025, Expires: 03/08/2026 documented as of this encounter Visit Diagnoses Diagnosis Mass of gallbladder- Primary Other specified disorder of gallbladder documented in this encounter
--- OUTSIDE RECORDS SUMMARY | 2025-03-21 20:05 | XMS_ITS | Encounter Summary ---
Author Organization [facility] Address [address] [place] [address] Care Team Providers Care Category Analyst Name Role Phone Charan Quinn MD Primary Care Provider [phone] Bijal Antunez SENIOR RESTAURANT MANAGER Unavailable [phone] Bijal Antunez SENIOR RESTAURANT MANAGER Unavailable [phone] Reason for Visit * Reason Comments Med Refill Encounter Details Date Type Department Care Team (Late st Contact Info) Description 09/17/2024 Refill [facility] [address] [place] [address] Bijal Antunez, SENIOR RESTAURANT MANAGER [address] [place] [address] Class 3 severe obesity due to excess calories without serious comorbidity with body mass index (BMI) of 45.0 to 49.9 in adult ([facility]) Social History Tobacco Use Types [...] any clubs o r organizations such as pentecostalism groups, unions, fraternal or athletic groups, or [...] Recorded Patient Health Questionnaire-2 Score 0 08/22/2024 [facility] of Occupat ional Health - Occupational Stress [...] a nursing home (including now)? No 08/18/2023 Comments No [...] [facility] [address] [place] [address] Bijal Antunez NP [address] [place] [address] 02/22/2026 11:10 AM EDT Office Visit [facility] [address] [place] [address] Rose Taylor PA [address] [place] [address] documented as of this encounter Visit Diagnoses Diagnosis Class 3 severe obesity due to excess calories without serious comorbidity with body mass index (BMI) of 45.0 to 49.9 in adult ([facility]) documented in this encounter Care Teams Category Analyst Relationship Specialty Start Date End Date Charan Quinn MD [address] [place] [address] PCP - General Family Medicine 01/20/24 Bijal Antunez NP [address] [place] [address] PCP - [facility] 12/14/23 Bijal Antunez NP [address] [place] [address] Nurse Practitioner Family Medicine 01/20/24 documented as of this encounter
--- OUTSIDE RECORDS SUMMARY | 2025-03-21 20:05 | XMS_ITS | Encounter Summary ---
Author Organization [facility] Address [address] [place] [address] Care Team Providers Care Grey Tender Name Role Phone Charan Quinn MD Primary Care Provider [phone] Charan Quinn MD Primary Care Provider [phone] Bijal Antunez ADVERTISING REPRESENTATIVE Unavailable [phone] Bijal Antunez ADVERTISING REPRESENTATIVE Unavailable [phone] Encounter Details Date Type Department Care Team (Late st Contact Info) Description 12/02/2023 Orders Only [facility] [address] [place] [address] Bijal Antunez ADVERTISING REPRESENTATIVE [address] [place] [address] Social History Tobacco Use Types [...] How often do you attend chur or latter day services? Never 08/18/2023 Do you belong to any clubs o r organizations such as episcopal groups, unions, fraternal or athletic groups, or [...] Recorded Patient Health Questionnaire-2 Score 0 08/17/2023 [facility] [place] of Occupat ional Health - Occupational Stress [...] [facility] [address] [place] [address] Bijal Antunez NP [address] [place] [address] 02/22/2026 11:10 AM EDT Office Visit [facility] [address] [place] [address] Rose Taylor PA [address] [place] [address] documented as of this encounter Procedures Procedure Name Priority Date/Time Associated Diagnosis Comments MAMM SCREEN CAD BILAT10.00 %28 Routine 12/01/2023 11:47 AM EDT documented in this encounter Results * MAMM SCREEN CAD BILAT10.00 %28 (12/01/2023 11:47 AM EDT) Anatomical Region Laterality Modality Radiographic Yancy ging us Bijal Antunez ADVERTISING REPRESENTATIVE IMG XR PROCEDURES Final Result documented in this encounter Visit Diagnoses Not on filedocumented in this encounter Care Teams Grey Tender Relationship Specialty Start Date End Date Charan Quinn MD PCP - General Cardiology 09/14/22 01/19/24 Charan Quinn MD [address] [place] [address] PCP - General Family Medicine 01/20/24 Bijal Antunez NP [address] [place] [address] PCP - [facility] 12/14/23 Bijal Antunez NP [address] [place] [address] Nurse Practitioner Family Medicine 01/20/24 documented as of this encounter
--- OUTSIDE RECORDS SUMMARY | 2025-03-21 20:05 | XMS_ITS | Encounter Summary ---
Author Organization [facility] Address [address] [place] [address] Care Team Providers Care Psychology Lecturer Name Role Phone Charan Quinn MD Primary Care Provider [phone] Bijal Antunze NP Unavailable [phone] Bijal Antunez NP Unavailable [phone] Encounter Details Date Type Department Care Team (Late st Contact Info) Description 03/10/2025 Clinisync Result Encounter [facility] External Department Unsolicited Bijal Antunez, SIENNA [address] [place] [address] Social History Tobacco Use Types Packs/Day Years [...] How often do you attend chur or sabianist services? 1 to 4 times per year [...] Recorded Patient Health Questionnaire-2 Score 0 08/22/2024 [facility] [place] of Occupat ional Health - Occupational Stress [...] Visit [facility] [address] [place] [address] Bijal Antunez NP [address] [place] [address] 02/22/2026 11:10 AM EDT Office Visit [facility] [address] [place] [address] Rose Taylor PA [address] [place] [address] documented as of this encounter Procedures Procedure Name Priority Date/Time Associated Diagnosis Comments US THYROID 03/10/2025 12:56 PM EDT documented in this encounter Results * US thyroid (03/10/2025 12:56 PM EDT) Anatomical Region Laterality Modality Head, Neck Ultrasound 03/10/2025 12:5 6 PM EDT Narrative 03/10/2025 12:59 PM EDT The [address] [address] Ultrasound Report Signed Patient: WAYNE LOZADA MR#: [id number] : 1965 Acct:[id number] Age/Sex: 59 / F ADM Date: 03/10/25 Loc: US Attending Dr: Bijal Antunez NP Ordering Physician: Bijal Antunez NP Date of Service: 03/10/25 Procedure(s): US thyroid Accession Number(s): [id number] cc: Bijal Antunez NP The [address] [address] Patient Name: WAYNE LOZADA MRN: [id number] date: 1965 Sex: F Assigned Patient Location: US Current Patient Location: US Accession/Order Number: [id number] Exam Date: 03/10/2025 12:50 Report Date: 03/10/2025 [...] Soni M.D. 03/10/2025 12:56 PM Dictation Location: [place] [address] Electronically authenticated by: [id number] Y Date: 03/10/2025 12:56 Dictated By: Marv Soni M.D. Signed By: 03/10/25 1259 DD/ 1256 TD/TT: Citrus Picker: Procedure Note Radiology, Radiologist, MD - 03/10/2025 [place] [address] Ultrasound Report Signed Patient: WAYNE LOZADA KMR#: [id number] : 1965Acct:[id number] Age/Sex: 59 / FADM Date: 03/10/25 Loc: US Attending Dr: Bijal Antunez NP Ordering Physician: Bijal Antunez NP Date of Service: 03/10/25 Procedure(s): US thyroid Accession Number(s): [id number] cc: Bijal Antunez NP [address] [address] Patient Name: WAYNE LOZADA MRN: [facility]:[id number] date: 1965 Sex: F Assigned Patient Location: US Current Patient Location: US Accession/Order Number: [id number] Exam Date: 03/10/2025 12:50 Report Date: 03/10/2025 [...] Soni M.D. 03/10/2025 12:56 PM Dictation Location: [facility] Electronically authenticated by: [id number] Y Date: :56 Dictated By: Marv Soni M.D. Signed By:03/10/25 1259 DD/ 1256 TD/TT: Citrus Picker: us Bijal Antunez NP IMG US PROCEDURES Final Result documented in this encounter Visit Diagnoses Not on filedocumented in this encounter Care Teams Psychology Lecturer Relationship Specialty Start Date End Date Charan Quinn MD [address] [place] [address] PCP - General Family Medicine 01/20/24 Bijal Antunez NP [address] [place] [address] PCP - [facility] 12/14/23 Bijal Antunez NP [address] [place] [address] Nurse Practitioner Family Medicine 01/20/24 documented as of this encounter
--- OUTSIDE RECORDS SUMMARY | 2025-03-21 20:05 | XMS_ITS | Encounter Summary ---
Author Organization [facility] Address [address] [place] [address] Care Team Providers Care Reporting Consultant Name Role Phone Charan Quinn MD Primary Care Provider [phone] Bijal Antunez RN PERIOPERATIVE Unavailable [phone] Bijal Antunez NP Unavailable [phone] Encounter Details Date Type Department Care Team (Late st Contact Info) Description 03/13/2025 Clinisync Result Encounter [facility] External Department Unsolicited Bijal Antunez, SIENNA [address] [place] [address] Social History Tobacco Use Types Packs/Day Years [...] How often do you attend chur or denominational services? 1 to 4 times per year [...] Patient Health Questionnaire-2 Score 0 08/22/2024 [facility] [place] of Occupat ional Health - Occupational Stress [...] time in the past 12 m [facility], were you homeless or living in [...] Visit [facility] [address] [place] [address] Bijal Antunez NP [address] [place] [address] 02/22/2026 11:10 AM EDT Office Visit [facility] [address] [place] [address] Rose Taylor PA [address] [place] [address] documented as of this encounter Procedures Procedure Name Priority Date/Time Associated Diagnosis Comments TBH VITAMIN D 25 [place] Routine 03/13/2025 1 0:52 AM EDT [facility] CMP (CMP) (FOR REMOTE [facility] USE) Routine 03/13/2025 10:52 AM EDT ALL THYROXINE (T4) FREE Routine 03/13/2025 10:52 AM EDT ALL THYROID STIM HORMONE Routine 03/13/2025 10:52 AM EDT ALL LIPID PROFILE (FASTING) Routine 03/13/2025 10:52 AM EDT documented in this encounter Results * ALL THYROXINE (T4) FREE (03/13/2025 10:52 AM EDT) FREE T4 1.14 0.76 - 1.46 ng/dL TBH 03/13/2025 10:5 2 AM EDT 03/13/2025 10:53 AM EDT Narrative CLINISYNC - 03/13/2025 12:22 PM EDT us Bijal Antunez NP CLINISYNC Final Result CLINISYNC TB * TBH VITAMIN D 25 [place] (03/13/2025 10:52 AM EDT) VITAMIN D 27.7 ng/mL TB Comment: <20 ng/mL Vit D deficient 20-<30 ng/mL Vit D insufficient 30-100 ng/mL Vit D sufficient >100 ng/mL Potential Toxicity 03/13/2025 10:5 2 AM EDT 03/13/2025 10:53 AM EDT Narrative CLINISYPA - 03/13/2025 12:22 PM EDT Bijal Antunez NP CLINISYPA Final Result Performing Organization Address [facility]/ZIP Co de Phone Number [facility] * ALL THYROID STIM HORMONE (03/13/2025 10:52 AM EDT) Pathologist [facility] THYROID STIMULATING HORMONE 0.694 0.358 - 3.740 uIU/mL [facility] 03/13/2025 10:5 2 AM EDT 03/13/2025 10:53 AM EDT [facility] CLINISYNC - 03/13/2025 11:33 AM EDT Bijal Antunez NP CLINISYPA Final Result Performing Organization Address [facility] de Phone Number [facility] * (ABNORMAL) ALL LIPID PROFILE (FASTING) (03/13/2025 10:52 AM EDT) TRIGLYCERIDES 205(H) <=150 mg/dL TB CHOLESTEROL 148 <=200 mg/dL TB HDL CHOLESTEROL [...] 03/13/2025 11:33 AM EDT us Bijal Antunez RN PERIOPERATIVE CLINISYNC Final Result CLINISYNC [facility] * (ABNORMAL) [facility] CMP (CMP) (FOR REMOTE [facility] USE) (03/13/2025 10:52 AM EDT) SODIUM 145 136 - 145 mmol/L TBH POTASSIUM 3.5 3.5 - 5.1 mmol/L TBH CHLORIDE 104 98 - 107 mmol/L TBH CARBON DIOXIDE 31.9 21.0 - 32.0 mmol/L TBH ANION GAP 12.6 TBH GLUCOSE 109(H) 74 - 106 mg/dL TBH BLOOD UREA NITROGEN 19.0(H) 7.0 - 18.0 mg/dL TBH CREATININE 0.72 0.55 - 1.02 mg/dL TBH TBH EGFR-AF [place] >60 >=60 mL/min/1. 73m 2 TBH TBH EGFR-NON AF [place] >60 >=60 mL/min/1. 73m 2 TBH BUN [...] Antunez NP CLINISYNC Final Result CLINISYNC [facility] documented in this encounter Visit Diagnoses Not on filedocumented in this encounter Care Teams Reporting Consultant Relationship Specialty Start Date End Date Charan Quinn MD [address] [place] [address] PCP - General Family Medicine 01/20/24 Bijal Antunez NP [address] [place] [address] PCP - [facility] 12/14/23 Bijal Antunez NP [address] [place] [address] Nurse Practitioner Family Medicine 01/20/24 documented as of this encounter
--- OUTSIDE RECORDS SUMMARY | 2025-03-21 20:05 | XMS_ITS | Encounter Summary ---
Author Organization [facility] Address [address] [place] [address] Care Team Providers Care Ekg/Ecg Technician Name Role Phone Charan Quinn MD Primary Care Provider [phone] Bijal Antunez PHARMACOGENETICIST Unavailable [phone] Bijal Antunez PHARMACOGENETICIST Unavailable [phone] Reason for Visit * Reason Comments Med Refill Encounter Details Date Type Department Care Team (Late st Contact Info) Description 08/19/2024 Refill [facility] [address] [place] [address] Bijal Antunez, PHARMACOGENETICIST [address] [place] [address] Essential (primary) hypertension ; Bilateral [...] How often do you attend chur or confucianist services? Never 08/18/2023 Do you belong to any clubs o r organizations such as hindu groups, unions, fraternal or athletic groups, or [...] Recorded Patient Health Questionnaire-2 Score 0 08/22/2024 [facility] [place] of Occupat ional Health - Occupational Stress [...] in a fpc (including now)? No 08/18/2023 Comments No Sex [...] Visit [facility] [address] [place] [address] Bijal Antunez NP [address] [place] [address] 02/22/2026 11:10 AM EDT Office Visit [facility] [address] [place] [address] Rose Taylor PA [address] [place] [address] documented as of this encounter Visit Diagnoses Diagnosis Essential (primary) hypertension Unspecified essential hypertension Bilateral lower extremity edema documented in this encounter Care Teams Ekg/Ecg Technician Relationship Specialty Start Date End Date Charan Quinn MD [address] [place] [address] PCP - General Family Medicine 01/20/24 Bijal Antunez NP [address] [place] [address] PCP - [facility] 12/14/23 Bijal Antunez NP [address] [place] [address] Nurse Practitioner Family Medicine 01/20/24 documented as of this encounter
--- OUTSIDE RECORDS SUMMARY | 2025-03-21 20:05 | XMS_ITS | Encounter Summary ---
Author Organization [facility] Address [address] [place] [address] Care Team Providers Care Dot Net Developer Name Role Phone Charan Quinn MD Primary Care Provider [phone] Bijal Antunez WASTE WATER TREATMENT PLANT OPERATOR Unavailable [phone] Bijal Antunez WASTE WATER TREATMENT PLANT OPERATOR Unavailable [phone] Encounter Details Date Type Department Care Team (Late st Contact Info) Description 03/02/2025 Orders Only [facility] [address] [place] [address] Jen Rodgers PA [address] [place] [address] [place] [address] Social History Tobacco Use Types [...] often do you attend chur ch or adventism services? 1 to 4 times per year 11/09/2024 Do you belong to any clubs o r organizations such as gnosticist groups, unions, fraternal or athletic groups, or [...] Recorded Patient Health Questionnaire-2 Score 0 08/22/2024 [facility] of Occupat ional [...] in a retirement (including now)? No 08/18/2023 Housing Stability Vital Sign Answer Derick e Recorded In the last 12 months, was t here a time when you were not able to pay the mortgage or rent on time? No 11/09/2024 In the past 12 months, how m any times have you moved where you were living? 0 11/09/2024 At any time in the past [address] [facility], were you homeless or living in a retirement (including now)? No 11/09/2024 Comments No Sex [...] [facility] [address] [place] [phone] Bijal Antunez NP [address] [place] [address] 02/22/2026 11:10 AM EDT Office Visit [facility] [address] [place] [address] Rose Taylor PA [address] [place] [address] documented as of this encounter Procedures Procedure Name Priority Date/Time Associated Diagnosis Comments US RUQ ABDOMEN ANY ORGAN ANY QUADRANT [id number] Routine 03/02/2025 9:05 AM EDT documented in this encounter Results * US RUQ ABDOMEN ANY ORGAN ANY QUADRANT [id number] (03/02/2025 9:05 AM EDT) Anatomical Region Laterality Modality Radiographic Yancy ging us Jen ROSADO IMG XR PROCEDURES Final Result documented in this encounter Visit Diagnoses Not on filedocumented in this encounter Care Teams Dot Net Developer Relationship Specialty Start Date End Date Charan Quinn MD [address] [place] [address] PCP - General Family Medicine 01/20/24 Bijal Antunez NP [address] [place] [address] PCP - [facility] 12/14/23 Bijal Antunez NP [address] [place] [address] Nurse Practitioner Family Medicine 01/20/24 documented as of this encounter
--- OUTSIDE RECORDS SUMMARY | 2025-03-21 20:05 | XMS_ITS | Encounter Summary ---
Author Organization [facility] Address [address] [place] [address] Care Team Providers Care Perforating Machine Operator Name Role Phone Charan Quinn MD Primary Care Provider [phone] Bijal Antunez CLARIFYING PLANT OPERATOR Unavailable [phone] Bijal Antunez CLARIFYING PLANT OPERATOR Unavailable [phone] Encounter Details Date Type Department Care Team (Late st Contact Info) Description 03/11/2024 Orders Only [facility] [address] [facility] [address] [place] [address] Kamilah Martinez MD [address] [facility] [address] [place], [place] [address] Social History Tobacco Use Types Packs/Day Years [...] How often do you attend chur or judaism services? Never 08/18/2023 Do you belong to any clubs o r organizations such as nondenominational groups, unions, fraternal or athletic groups, or [...] Recorded Patient Health Questionnaire-2 Score 0 01/20/2024 [facility] of Occupat ional Health - Occupational [...] place to sleep or slept in a care home (including now)? No 08/18/2023 Comments No [...] Office Visit [facility] [address] [place] [address] Bijal Antunez NP [address] [place] [address] 02/22/2026 11:10 AM EDT Office Visit [facility] [address] [place] [address] Rose Taylor PA [address] [place] [address] documented as of this encounter Procedures Procedure Name Priority Date/Time Associated Diagnosis Comments SCANNED LABS Routine 03/10/2024 8:45 AM EDT documented in this encounter Results * SCANNED LABS (03/10/2024 8:45 AM EDT) us Kamilah Martinez MD LAB CHG PERFORMABLES Final Re sult documented in this encounter Visit Diagnoses Not on filedocumented in this encounter Care Teams Perforating Machine Operator Relationship Specialty Start Date End Date Charan Quinn MD [address] [place] [address] PCP - General Family Medicine 01/20/24 Bijal Antunez NP [address] [place] [address] PCP - [facility] 12/14/23 Bijal Antunez NP [address] [place] [address] Nurse Practitioner Family Medicine 01/20/24 documented as of this encounter
--- OUTSIDE RECORDS SUMMARY | 2025-03-21 20:06 | XMS_ITS | Encounter Summary ---
Author Organization [facility] Address [address] [place] [address] Care Team Providers Care Business Solution Analyst Name Role Phone Charan Quinn MD Primary Care Provider [phone] Bijal Antunez PROJECT DEVELOPER Unavailable [phone] Bijal Antunez PROJECT DEVELOPER Unavailable [phone] Encounter Details Date Type Department Care Team (Late st Contact Info) Description 03/06/2025 Abstract [facility] [address] [place] [address] Bijal Antunez PROJECT DEVELOPER [address] [place] [address] Social History Tobacco Use Types Packs/Day Years [...] often do you attend chur ch or church services? 1 to 4 times [...] Recorded Patient Health Questionnaire-2 Score 0 08/22/2024 [facility] [place] of Occupat ional Health - Occupational Stress [...] a senior care (including now)? No 08/18/2023 Housing Stability Vital Sign Answer Derick e Recorded In the last 12 months, was t here a time when you were not able to pay the mortgage or rent on time? No 11/09/2024 In the past 12 months, how m any times have you moved where you were living? 0 11/09/2024 At any time in the past 12 m [facility], were you homeless or living in a senior care (including now)? No 11/09/2024 Comments No Sex [...] [facility] [address] [place] [address] Bijal Antunez NP [address] [place] [address] 02/22/2026 11:10 AM EDT Office Visit [facility] [address] [place] [address] Rose Taylor PA [address] [place] [address] documented as of this encounter Visit Diagnoses Not on filedocumented in this encounter Care Teams Business Solution Analyst Relationship Specialty Start Date End Date Charan Quinn MD [address] [place] [address] PCP - General Family Medicine 01/20/24 Bijal Antunez NP [address] [place] [address] PCP - [facility] 12/14/23 Bijal Antunez NP [address] [place] [address] Nurse Practitioner Family Medicine 01/20/24 documented as of this encounter
--- OUTSIDE RECORDS SUMMARY | 2025-03-21 20:06 | XMS_ITS | Encounter Summary ---
Author Organization [facility] Address [address] [place] [address] Care Team Providers Care Tumbler Drier Operator Name Role Phone Charan Quinn MD Primary Care Provider [phone] Bijal Antunez POLICE INSPECTOR Unavailable [phone] Bijal Antunez POLICE INSPECTOR Unavailable [phone] Encounter Details Date Type Department Care Team (Late st Contact Info) Description 09/22/2024 Orders Only [facility] [address] [place] [address] Bijal Antunez POLICE INSPECTOR [address] [place] [address] Social History Tobacco Use Types Packs/Day Years [...] do you attend chur or denominational services? Never 08/18/2023 Do you belong to any clubs o r organizations such as protestant groups, unions, fraternal or athletic groups, or [...] Recorded Patient Health Questionnaire-2 Score 0 08/22/2024 [facility] [place] of Occupat ional Health - Occupational Stress [...] Visit [facility] [address] [place] [address] Bijal Antunez NP [address] [place] [address] 02/22/2026 11:10 AM EDT Office Visit [facility] [address] [place] [address] Rose Taylor PA [address] [place] [address] documented as of this encounter Procedures Procedure Name Priority Date/Time Associated Diagnosis Comments SCANNED LABS Routine 09/22/2024 11:19 AM EST documented in this encounter Results * SCANNED LABS (09/22/2024 11:19 AM EST) Bijal Antunez POLICE INSPECTOR LAB CHG PERFORMABLES Final Resu lt documented in this encounter Visit Diagnoses Not on filedocumented in this encounter Care Teams Tumbler Drier Operator Relationship Specialty Start Date End Date Charan Quinn MD [address] [place] [address] PCP - General Family Medicine 01/20/24 Bijal Antunez NP [address] [place] [address] PCP - [facility] 12/14/23 Bijal Antunez NP [address] [place] [address] Nurse Practitioner Family Medicine 01/20/24 documented as of this encounter
--- NOTE | 2025-03-21 20:18 | ED_ITS ---
HPI HPI - General Adult General Chief complaint: Abdominal Pain Stated complaint: Abdominal Pain Time Seen by Provider: 03/21/25 20:07 Source: patient Mode of arrival: walk-in Limitations: no limitations History of Present Illness HPI narrative: Patient is a 59-year-old female who is presenting to the ER with chief complaint of acute on chronic right upper quadrant pain, midepigastric pain. Patient was seen in the ER recently, had ultrasound of her gallbladder that showed a small grape size like mass abdominal wall of the gallbladder. Patient has outpatient MRIs with and without contrast scheduled for next Thursday of the right upper quadrant and abdomen. Patient has acid reflux history, she does take medication for that daily. 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 Patient has a GI specialist at [employer], her nurse practitioner primary care provider is Bijal Solis. Patient has no fever. No chest pain or shortness of breath. No bowel or bladder changes. Patient has Kinsman and Zofran at home but is not helping. Patient states that her symptoms started again yesterday around 7 PM. Patient has had no significant fatty or greasy things to eat or drink significant mount of caffeine, coffee, alcohol products over the weekend. 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 Patient is having discomfort to the midepigastric right upper quadrant. Patient blood pressure was initially elevated, she did not take her blood pressure medication this morning is at bedside. Patient has nausea. No acute complaints. All systems are negative except as noted/marked. All systems reviewed and otherwise negative. Nurses note and vital signs reviewed and patient is not hypoxic. General: The patient appears well and in no apparent distress. Patient is resting comfortably on cart. Patient is not toxic, lethargic, or listless Skin: Warm, dry, no pallor noted. There is no rash noted. No petechiae, purpura. Head: Normocephalic, atraumatic Eye: Normal conjunctiva, no drainage, EOMI. PERRL Ears, Nose, Mouth, and Throat: oral mucosa is moist. Nares patent. Mouth without vesicles. Cardiovascular: Regular Rate and Rhythm, no murmur, gallop, rub Respiratory: Patient is in no distress, no accessory muscle use, lungs are clear to auscultation, no wheezing, rales or rhonchi Back: non-tender, no CVA tenderness bilaterally to percussion. No CT LS midline pain GI: Moderate right upper quadrant tenderness to palpation, mild to moderate midepigastric tenderness palpation, no left upper quadrant tenderness to palpation. Obese, no peritoneal signs, no flank pain bilateral. otherwise no tenderness to palpation, no masses appreciated. No rebound,mil guarding to right upper quadrant and midepigastric area, no rigidity noted. No distention Musculoskeletal: Patient has full range of motion of all of the extremities, no motor, sensory, or focal neurological deficits. Neurological: A&O x4, normal speech Psychiatric: Cooperative Related Data Home Medications ?Medication ?Instructions ?Recorded ?Confirmed albuterol sulfate 90 mcg/actuation inhalation 03/21/25 aerosol inhaler atorvastatin 40 mg tablet mg 03/21/25 carvedilol 3.125 mg tablet mg 03/21/25 cyclobenzaprine 10 mg tablet mg 03/21/25 estradiol 2 mg tablet mg 03/21/25 hydrochlorothiazide 25 mg tablet mg 03/21/25 hydrocodone 5 mg-acetaminophen 325 tab 03/21/25 mg tablet levothyroxine 150 mcg tablet mcg 03/21/25 Previous Rx's ?Medication ?Instructions ?Recorded ondansetron HCl 4 mg tablet 4 mg PO Q8H PRN nausea 3 d ays #9 03/01/25 tabs Allergies Allergy/AdvReac Type Severity Reaction Status Date / Time ELISABETH Inhibitors Allergy Severe Swelling Verified 03/01/25 18:11 of Lip/Tongue/Throat Opioid HPI Opioid Management Most Recent Opioid Data: Last Pain Scale 2 Today, 05:30 Last ED Pain Assessment 03/21/25, 21:17 Last MAR Pain Assessment 03/21/25, 21:06 PFSH PFSH Social History Little interest or pleasure in doing things: not at all Feeling down, depressed, or hopeless: not at all Exam Constitutional Vital Signs, click to edit/add: Last Vital Signs Temp 98.1 F 03/21/25 20:05 Pulse 70 03/22/25 05:30 Resp 18 03/22/25 05:30 BP 125/75 03/22/25 05:30 Pulse Ox 96 03/22/25 05:30 O2 Del Method Room Air 03/21/25 20:05 Course Vital Signs Vital signs: Vital Signs Temperature 98.1 F 03/21/25 20:05 Pulse Rate 84 03/21/25 20:05 Respiratory Rate 18 03/21/25 20:05 Blood Pressure 178/101 H 03/21/25 20:05 Pulse Oximetry 97 03/21/25 20:05 Oxygen Delivery Method Room Air 03/21/25 20:05 Temperature 98.1 F 03/21/25 20:05 Pulse Rate 70 03/22/25 05:30 Respiratory Rate 18 03/22/25 05:30 Blood Pressure 125/75 03/22/25 05:30 Pulse Oximetry 96 03/22/25 05:30 Oxygen Delivery Method Room Air 03/21/25 20:05 Medical Decision Making MDM Narrative Medical decision making narrative: Patient seen and examined: Patient had repeat labs. IV established, IV fluids, Zofran, IV morphine, IV Pepcid Differential diagnosis includes but is not limited to: Biliary colic, cholecystitis, gastritis, acute on chronic abdominal pain, volvulus, obstruction, electrolyte abnormality Diagnostics and management: Patient will have laboratory studies potassium 3.4, patient total bilirubin is 3.0, AST 407, ALT 478, alk phos 208, troponin less than 4. 2114 LFTs were noted, patient will have gallbladder ultrasound repeated along with CT of the abdomen pelvis. Lipase is 160. Relevant laboratory interpretation: See above Radiological studies: Please see the formal radiological report. ski technician finished at 2009. Preliminary report sludge sludge, 1 gallstone in the fundus, waiting for the official report. 0 patient's gallbladder ultrasound shows fatty liver with gallbladder distention with sludge and gallstones. Obscured pancreas. CT of the abdomen and pelvis shows negative acute inflammatory bowel obstruction. Distended gallbladder, unclear if this is reactive process related to chronic cholecystitis. Patient is requesting more pain medication at this time, patient was given maintenance fluids, additional diagnosis of 1 mg of IV Dilaudid. 2330 I am paging the surgeon at [facility] currently to discuss patient's case. Reevaluation: 2124 Patient was updated on elevated LFTs, lipase 160. Patient have ultrasound and CT of the abdomen pelvis done. 0000 patient and have been updated on patient's ultrasound report, CAT scan of the abdomen and pelvis report, elevated LFTs. 2332 I spoke to the surgeon from [facility], Dr. Landa. He is not accepting transfer, he is recommended patient go to a larger tertiary care center that can perform the ERCP secondary to most likely choleductallithiasis. Patient works at [employer]. Patient's GI physician is Dr. Atkinson. 0015 we are calling [facility] access for transfer. Patient's GI physician is at [facility], Dr. Atkinson. 0055 I have spoken to the GI physician from [facility], Dr. Barajas. He except patient in consultation, recommending that we admit patient to the hospitalist. Patient was not able to be transferred to [facility] because they do not have GI capabilities or the ability to help take care of patient with potential choleductallithiasis. 0155 after calling to [facility] transfer line several times, I was able to speak to Cecelia Louis, physician specimen preparation assistant. She is excepting admission on behalf of Dr. Leyva. Patient will be excepted and transferred, however they have no beds available this evening/this morning. We are instructed to call back at 8 AM after shift change to see what beds may be available. If there is something that opens up sooner they will call us, otherwise we will call back at 8 AM to see what/where patient will be admitted to and what floor. Patient is aware of this, has been updated by Ag [facility]. 0230 patient is having return of pain. Patient stated Dilaudid helped her more for pain and morphine did. Patient be given a dose of Toradol and Dilaudid. Patient will be getting a hospital bed as well for comfort Secondary to being in the ER waiting for transfer for potential 10 to 12 hours if not longer. Shared decision making: I discussed with the patient the necessary laboratory findings and radiological findings. Social barriers to healthcare: There are no food insecurities, there is no issue with transportation, there are no insurance barriers. Disposition: I discussed with the patient initially if she would need to be admitted to the hospital or transfer, which she want to be transferred to [facility] or [facility]. Patient did not care initially which hospital transfer would be needed. 0700 patient will be transition to Dr. Juarez to observe patient until patient is transferred to [facility] in [place]. [facility] access transfer line will be called at 8 AM to reassess bed situation and bed availability. Critical care time 55 minutes exclusive from separate billable procedures that were performed. The following was considered in the determination of critical care but not limited to the level of medical decision making, intensive cardiac and/or respiratory monitoring, frequent vital sign monitoring, evaluation of laboratory studies, evaluation of radiographic studies, oxygen monitoring, and constant monitoring and speaking to family at bedside Lab Data Labs: Lab Results 03/21/25 Range/Units 20:35 WBC 9.6 (4.0-11.0) 10^3/uL RBC 3.97 L (4.20-5.40) 10^6/uL Hgb 12.8 (12.0-16.0) g/dL Hct 36.7 (36.0-48.0) % MCV 92.4 (81.0-99.0) fL MCH 32.2 (26.7-34.0) pg MCHC 34.9 (29.9-35.2) g/dL RDW 12.7 (11.0-15.0) % Plt Count 310 (150-450) 10^3/uL MPV 8.7 L (9.5-13.5) fL Neut % (Auto) 83.3 H (43.0-75.0) % Lymph % (Auto) 9.0 L (20.5-60.0) % George % (Auto) 5.3 (1.7-12.0) % Eos % (Auto) 1.9 (0.9-7.0) % Baso % (Auto) 0.2 (0.2-2.0) % Neut # (Auto) 8.0 H (1.4-6.5) 10^3/uL Lymph # (Auto) 0.9 L (1.2-3.8) 10^3/uL George # (Auto) 0.5 (0.3-0.8) 10^3/uL Eos # (Auto) 0.2 (0.0-0.7) 10^3/uL Baso # (Auto) 0.0 (0.0-0.1) 10^3/uL Abs Immat Gran (auto) 0.03 (0.00-0.03) 10^3/uL Imm/Tot Granulo (auto) 0.3 (0.0-0.5) % Sodium 144 (136-145) mmol/L Potassium 3.4 L (3.5-5.1) mmol/L Chloride 102 (98-107) mmol/L Carbon Dioxide 33.2 H (21.0-32.0) mmol/L Anion Gap 12.2 BUN 11.0 (7.0-18.0) mg/dL Creatinine 0.58 (0.55-1.02) mg/dL Est GFR ( Amer) >60 (>=60 mL/min/1.73m^2) Est GFR (Non-Af Amer) >60 (>=60 mL/min/1.73m^2) BUN/Creatinine Ratio 19.0 Glucose 111 H (74-106) mg/dL Lactate 1.0 (0.4-2.0) mmol/L Calcium 9.1 (8.5-10.1) mg/dL Total Bilirubin 3.0 H (0.2-1.0) mg/dL AST 407 H (15-37) U/L ALT 478 H (14-59) U/L Alkaline Phosphatase 208 H (46-116) U/L Troponin I High Sens <4.0 L (4.0-51.3) pg/mL Total Protein 7.2 (6.4-8.2) g/dL Albumin 3.5 (3.4-5.0) g/dL Globulin 3.7 g/dL Albumin/Globulin Ratio 0.9 Lipase 160.0 H (16.0-77.0) U/L Discharge Plan Discharge Chief Complaint: Abdominal Pain Clinical Impression: Cholecystitis, Choledocholithiasis, Biliary colic, Elevated LFTs Patient Disposition: [facility] Time of Disposition Decision: 01:55 Condition: Serious Mode of Transportation: EMS
[2025-03-21 20:47] LABS: Hematocrit 36.7 % (36.0-48.0); Hemoglobin 12.8 g/dL (12.0-16.0); Immature Granulocytes Abs Auto 0.03 10^3/uL (0.00-0.03); Immature Granulocytes Pct Auto 0.3 % (0.0-0.5); Lymphocytes Absolute Auto 0.9 10^3/uL (1.2-3.8); Mean Corpuscular HGB Conc 34.9 g/dL (29.9-35.2); Mean Corpuscular Hemoglobin 32.2 pg (26.7-34.0); Mean Corpuscular Volume 92.4 fL (81.0-99.0); Platelet Count 310 10^3/uL (150-450); Red Blood Count 3.97 10^6/uL (4.20-5.40); White Blood Count 9.6 10^3/uL (4.0-11.0)
[2025-03-21] MEDS: 0.9 % SODIUM CHLORIDE 1,000 ML 999 ML IV (20:50)
[2025-03-21 21:04] LABS: Lactate/Lactic Acid 1.0 mmol/L (0.4-2.0)
[2025-03-21 21:05] LABS: Alanine Aminotransferase 478 U/L (14-59); Albumin Globulin Ratio 0.9; Albumin Level 3.5 g/dL (3.4-5.0); Alkaline Phosphatase 208 U/L (46-116); Anion Gap 12.2; Aspartate Amino Transferase 407 U/L (15-37); Blood Urea Nitrogen 11.0 mg/dL (7.0-18.0); Calcium 9.1 mg/dL (8.5-10.1); Carbon Dioxide 33.2 mmol/L (21.0-32.0); Chloride 102 mmol/L (98-107); Estimated GFR (African America >60 (>=60 mL/min/1.73m^2); Estimated GFR (Non-African Ame >60 (>=60 mL/min/1.73m^2); Globulin 3.7 g/dL; Glucose 111 mg/dL (74-106); Lipase 160.0 U/L (16.0-77.0); Potassium 3.4 mmol/L (3.5-5.1); Sodium 144 mmol/L (136-145); Total Protein 7.2 g/dL (6.4-8.2)
[2025-03-21] MEDS: MORPHINE SULFATE 4 MG/ML VIAL 8 MG IV (21:06)
[2025-03-21] MEDS: FAMOTIDINE/PF 20 MG/2 ML VIAL IV (21:07)
[2025-03-21 21:18] VITALS: BP 135/74; PULSE 80; O2SAT 92
--- NOTE | 2025-03-21 21:18 | US_ITS ---
[address] [address] Patient Name: WAYNE PIERRE MRN: [id number] date: 1965 Sex: F Assigned Patient Location: ER Current Patient Location: ER Accession/Order Number: [id number] Exam Date: 03/21/2025 22:41 Report Date: 03/21/2025 22:44 At the request of: SHIRLEY WELDON MD Procedure: US right upper quadrant Right upper quadrant ultrasound INDICATION: Elevated LFTs, elevated lipase, right upper quadrant pain COMPARISON: Report 03/01/2025 FINDINGS: Increased liver parenchyma echogenicity system dilatation. Liver length 19.7 cm. Normal hepatopedal flow. Gallbladder is distended measuring 12.1 cm in length. Sludge and gallstones noted. Gallbladder wall thickness 1.3 mm. Common bile duct measuring 5.2 mm. Negative sonographic Paniagua's sign.. Pancreas obscured. Right kidney unremarkable without hydronephrosis 11.3 x 5.4 x 5.1 cm in size. US/US right upper quadrant IMPRESSION: Fatty liver with gallbladder distention with sludge and gallstones. Obscured pancreas. Impression dictated by: Ruben Hopkins M.D. 03/21/2025 10:44 PM Dictation Location: [place] [address] Electronically authenticated by: [id number] Y Date: 03/21/2025 22:44
--- NOTE | 2025-03-21 21:19 | CT_ITS ---
The [address] [address] Patient Name: WAYNE PIERRE MRN: [id number] date: 1965 Sex: F Assigned Patient Location: ER Current Patient Location: ER Accession/Order Number: [id number] Exam Date: 03/21/2025 22:44 Report Date: 03/21/2025 22:49 At the request of: SHIRLEY WELDON MD Procedure: CT abdomen pelvis w con CT ABDOMEN AND PELVIS WITH INTRAVENOUS CONTRAST: CLINICAL HISTORY: ruq pain, elevated LFT COMPARISON: Right upper quadrant ultrasound 03/21/2025 TECHNIQUE: Spiral images were obtained through the abdomen and pelvis following the administration of intravenous contrast. This CT exam was performed using one or more following dose reduction techniques: Automated exposure control, adjustment of the mA and/or kV according to patient size, or use of iterative reconstruction technique. FINDINGS: Lung Bases: [No focal opacity.] Organs:Fatty liver. Mild prominence of the common bile duct noted. Gallbladder is distended. Adrenals, kidneys, spleen unremarkable. Pancreas is grossly unremarkable without definite peripancreatic fluid or fat stranding.[ GI: Mild retained stool throughout the colon. No bowel obstruction. Appendix unremarkable.[ Pelvis:[Bladder mostly collapsed. Uterus unremarkable. No adnexal mass.] Peritoneum/Retroperitoneum:No free air or free fluid. Bisz-hv-tictwzym aortic vascular calcification. Aorta isn't aneurysmal..[ Abd wall/Bones:Degenerative changes. 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 Distended gallbladder. Unclear if this is reactive process or related to chronic cholecystitis. If warranted, consider HIDA scan. Impression dictated by: Ruben Hopkins M.D. 03/21/2025 10:49 PM Dictation Location: [place] [address] Electronically authenticated by: [id number] Y Date: 03/21/2025 22:49
--- NOTE | 2025-03-21 21:22 | PC.NURSE ---
this patient updated about new orders placed for her: ct abdomen and ultra sound gall bladder
[2025-03-21] MEDS: POTASSIUM BICARBONATE/CIT 25 MEQ TABLET EFF 50 MEQ PO (23:39)
[2025-03-21] MEDS: 0.9 % SODIUM CHLORIDE 1,000 ML 125 ML IV (23:40)
[2025-03-21] MEDS: HYDROMORPHONE HCL 1 MG/ML CARTRIDGE IV (23:40)
[2025-03-22] VITALS (105 sets, daily range): BP systolic 104–150; BP diastolic 52–89; PULSE 70–76; TEMP 36.9; O2SAT 89–99
--- NOTE | 2025-03-22 02:05 | PC.NURSE ---
this patient has been updated, she has been accepted at [facility] but at this time they have no beds so we have to call back at 08:00 am. i also informed this patient that are housekeeper manager will be down a hospital bed for you. this patient voices no concerns, needs and shows no signs of distress
[2025-03-22] MEDS: KETOROLAC TROMETHAMINE 30 MG/ML VIAL 15 MG IVP (02:38)
--- NOTE | 2025-03-22 02:54 | PC.NURSE ---
this patient ambulated to the restroom and is now back in her room and now lying supine on a hospital bed
[2025-03-22] MEDS: HYDROMORPHONE HCL 1 MG/ML CARTRIDGE IV ×3 (03:31→19:39)
[2025-03-22] MEDS: PROMETHAZINE HCL 12.5 MG in 0.9 % SODIUM CHLORIDE 50 ML 202 MG IV (09:46)
[2025-03-22] MEDS: 0.9 % SODIUM CHLORIDE 1,000 ML 125 ML IV ×2 (10:35→18:35)
[2025-03-22] MEDS: PIPERACILLIN SODIUM/TAZOBACTAM 3.375 GM in 0.9 % SODIUM CHLORIDE 50 ML IV (19:12)
--- NOTE | 2025-03-22 22:17 | PC.NURSE ---
this patient is awake and alert sitting upright on the bed playing a game her i-pad this patient voices no concerns or needs and shows no signs of distress
[2025-03-23] VITALS (45 sets, daily range): BP systolic 123–157; BP diastolic 54–98; PULSE 80; O2SAT 89–99
[2025-03-23] MEDS: PIPERACILLIN SODIUM/TAZOBACTAM 3.375 GM in 0.9 % SODIUM CHLORIDE 50 ML IV (02:52)
[2025-03-23] MEDS: 0.9 % SODIUM CHLORIDE 1,000 ML 125 ML IV (03:01)
[2025-03-23] MEDS: MORPHINE SULFATE 4 MG/ML VIAL IV (07:26)
== END 2025-03-23 10:22 | disposition short-term general hospital (02) ==
PROVIDERS: Emergency Medicine; Emergency Provider Emergency Medicine; PCP Nurse Practitioner
DX: K80.40 Calculus of bile duct with cholecystitis, unspecified, without obstruction (principal); K21.9 Gastro-esophageal reflux disease without esophagitis; Z79.899 Other long term (current) drug therapy; K76.0 Fatty (change of) liver, not elsewhere classified; R79.89 Other specified abnormal findings of blood chemistry
CPT/HCPCS: 36415; 74177; 76705; 80053; 83605; 83690; 84484; 85025; 96365; 96366; 96367; 96375; 96376; 99285; J1171; J1885; J2270; J2405; J2543; J2550; J3490; Q9967

== ENCOUNTER 2025-08-03 11:05 | Outpatient (OUT) | payer BC, SELFPAY ==
--- OUTSIDE RECORDS SUMMARY | 2025-08-03 11:09 | XMS_ITS | Clinical Summary ---
Author Organization [facility] Address [address], [address] [place] [address] Care Team Providers Care Estimating Manager Name Role Phone Unavailable Primary Care Provider Unavailabl e Active Problems ProblemNoted DateDiagnosed TbqiXsfvanjwwrcqsiqyfat48/09/2025 Social History Tobacco UseTypesPacks/DayYears UsedDateSmoking Tobacco: Never Assessed CommentsUnknownSex and Gender InformationValueDate RecordedSex Assigned at Not on fileLegal WpzPeylko63/25/2025 4:31 PM ESTGender IdentityNot on fileSexual OrientationNot on file Plan of Treatment Health MaintenanceDue DateLast DoneCommentsDepression Kdhswf4804/12/1977HIV screen 1980Hepatitis C tiwhaq0304/12/1983DTaP/Tdap/Td vaccine (1 - Tdap)1984 Pap smear1986Cervical cancer hdfabb4304/12/1995HPV (without or with Pap) 1995Breast cancer lfvrpx2704/12/20055617Jbjrqb16/30/9726Ftamojfcjpa80/30/2010 Colorectal Cancer Hwegmq9904/12/2010FIT/FOBT: Average risk2010Fecal-DNA (Cologuard): Average risk2010Sigmoidoscopy/CT axpririjtnwv62/30/2010 Pneumococcal 50+ years Vaccine (1 of 1 - PCV)2015Shingles vaccine (1 of 2) 2015Flu vaccine (#1)5COVID-19 Vaccine (1 - season) 2025Respiratory Syncytial Virus (RSV) or age 60 yrs+ (1 - 1-dose 75+ series)2040Hepatitis A vaccineAged OutNo longer eligible based on patient's age to complete this topicHepatitis B vaccineAged OutNo longer eligible based on patient's age to complete this topicHib vaccineAged OutNo longer eligible based on patient's age to complete this topicMeningococcal (ACWY) vaccineAged OutNo longer eligible based on patient's age to complete this topicMeningococcal B vaccineAged OutNo longer eligible based on patient's age to complete this topicPolio vaccineAged OutNo longer eligible based on patient's age to complete this topic Insurance * Guarantor: Dominguez Lozada TypeRelation to PatientDate of BirthPhone Billing AddressPersonal/ZbibrxRyse1965 [address] [phone] [place] [address] [place] [address]
--- OUTSIDE RECORDS SUMMARY | 2025-08-03 11:09 | XMS_ITS | Clinical Summary ---
Author Organization [facility] Address [address] [place] [address] Care Team Providers Care Carbon Coating Machine Operator Name Role Phone Charan Quinn MD Primary Care Provider [phone] Bijal Antunez ALUMNI RELATIONS MANAGER Unavailable [phone] Bijal Antunez ALUMNI RELATIONS MANAGER Unavailable [phone] Allergies Active AllergyReactionsCriticalityNoted DateCommentsAce InhibitorsAngioedema 12/30/2024 Medications MedicationSigDispense QuantityRefillsLast FilledStart DateEnd DateStatus ferrous sulfate 325 (65 Fe) MG tablet Take 325 mg by mouth in the morning. Take with meals.Active Elastic Bandages & Supports (JOBST KNEE HIGH COMPRESSION SM) misc 1 Units in the morning. Jobst UltraSheer 20-30 mmHg Large - knee high compression hose. On in AM off in PM.Active fexofenadine (Conchis) 180 MG tablet Take 180 mg by mouth in the morning.Active albuterol HFA 90 mcg/act inhaler Indications:WheezingInhale 2 puffs every 4 (four) hours if needed for wheezing 18 g 4Active estradiol (Estrace) 2 MG tablet Indications:Hormone replacement therapyTake 1 tablet (2 mg) by mouth Daily 90 tablet 4Active nystatin-triamcinolone (Mycolog II) cream Indications:RashApply 1 application topically every 12 (twelve) hours 15 g 5Active atorvastatin (Lipitor) 40 MG tablet Indications:Pure hyperglyceridemiaTake 1 tablet (40 mg) by mouth at bedtime 90 tablet 5Active carvedilol (Coreg) 3.125 MG tablet Indications:Primary hypertensionTake 1 tablet (3.125 mg) by mouth in the morning and 1 tablet (3.125 mg) in the evening. Take with meals. 180 tablet 5Active cyclobenzaprine (Flexeril) 10 MG tablet Indications:Other chronic painTake 1 tablet (10 mg) by mouth as needed at bedtime for muscle spasms 90 tablet 5Active hydroCHLOROthiazide (HYDRODiuril) 25 MG tablet Indications:Bilateral lower extremity edema,Essential (primary) hypertensionTake 1 tablet (25 mg) by mouth 2 (two) times a day as needed (swelling) 180 tablet 5Active levothyroxine (Synthroid) 150 MCG tablet Indications:Acquired hypothyroidismTake 1 tablet (150 mcg) by mouth in the morning. Take before meals. 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 Mass of ucdbsqggppq68/20/2025 Assessment & Plan (03/06/2025 4:21 PM EDT): MRI ordered Mixed oztddfcvfigipo66/04/2025 Assessment & Plan (02/15/2025 6:09 AM EDT): On statin therapy Check labs yearly and prn dose changes Vitamin D duwvkfilby58/04/2025Neoplasm of uncertain mwtctyqi31/04/2025 Assessment & Plan (02/15/2025 9:08 AM EDT): Refer to Derm Postprandial RUQ pain11/15/2024 Assessment & Plan (03/06/2025 7:40 AM EDT): Hx stones on GBUS, wanted to observe, was in [facility] ER on 03/01/25 Had another US, did [...] GBUS May need HIDA Elevated liver function tests09/14/2024 Assessment & Plan (11/15/2024 7:24 AM EST): Had transient elevation w labs on 09/10/24: AST 60 and ALT 134, recheck on 10/01/24: AST 14, ALT 22 Body mass index (BMI) 45.0-49.9, adult08/17/2024Encounter for adult wellness visit08/17/2024 Assessment & Plan (08/17/2024 7:47 AM EST): Reviewed Ht/Wt/BMI Recommend eye exam yearly Recommend dental exams twice a year Balance work/leisure activities Exercises is recommended most days of the week (appropriate as chronic conditions allow) Follow up yearly and prn Other chronic pain4Plantar fasciitis, right05/25/2024 Assessment & Plan (05/25/2024 4:56 PM EDT): Is established with Lacie, I have discussed what I believe the diagnosis is, she can use ibuprofen as directed She will call podiatry to schedule and also hand out given on PF exerxcises Rash01/20/2024 Assessment & Plan (01/20/2024 1:56 PM EDT): FA rash, thinks possible related to dog, who has yeast on paws that they treat Call if not better As it applies to her hands: possible eczema will call when breaks out again no treatment at this time Primary wawngqxbvhrc65/26/2023 Assessment & Plan (04/05/2025 6:53 AM EDT): Please check blood pressure daily and record DASH diet Limit caffeine Take medication as directed Contact office if chest pain, pressure, dizziness, shortness of breath, swelling legs Recommend slow position changes Hx of angioedema in 2024 while taking lisinopril Current meds: carvedilol Assessment & Plan (02/15/2025 6:06 AM EDT): [...] Fu in 6 months Bilateral lower extremity edema09/08/2023 Assessment & Plan (02/15/2025 6:06 AM EDT): [...] stable Class 3 severe obesity without serious comorbidity in adult08/20/2023 Assessment & Plan (04/05/2025 6:54 AM EDT): Discussed with patient their BMI (actual, verses recommended). We have also discussed lifestyle modifications: attempts to perform physical activity as chronic conditions allow, also to monitor dietary intake: increasing protein/fruits/veggies and lowering carb intake (unless contraindicated). Limit sodas, juices, and sugary drinks. Assessment & Plan (03/06/2025 4:21 PM EDT): [...] contraindications Fu in 2 months Asymptomatic microscopic /05/2023 Overview (08/18/2023): UA on 08/16/23 +RBC, will repeat urine in 3 weeks Acquired ancfaonejahanm99/13/2023 Assessment & Plan (02/15/2025 9:07 AM EDT): Continue levothyroxine Check labs yearly and prn dose change or change in symptoms Assessment & Plan (11/15/2024 7:25 AM EST): Current med: levothyroxine Check labs yearly and prn dose change, or changes in symptoms Assessment & Plan (01/20/2024 1:26 PM EDT): Cont meds Multinodular gwxjwd5102/24/2023Thyroid tkkgsw7402/24/2023 Assessment & Plan (02/15/2025 9:08 AM EDT): Hx of this no longer follows with ENT Check thyroid US Resolved Problems ProblemNoted DateDiagnosed DateResolved DateAbnormal gallbladder ultrasound Assessment & Plan (03/06/2025 4:21 PM EDT): Ordering MRI UTI brufycap68Morbid (severe) obesity due to excess calories Assessment & Plan (08/17/2024 7:44 AM EST): Discussed with patient their BMI (actual, verses recommended). We have also discussed lifestyle modifications: attempts to perform physical activity as chronic conditions allow, also to monitor dietary intake: increasing protein/fruits/veggies and lowering carb intake (unless contraindicated). Limit sodas, juices, and sugary drinks. Currently taking Wegovy has been on this : Total weight loss: Acute non-recurrent maxillary worjfkwxk56 Assessment & Plan (08/17/2024 4:10 PM EST): Fluids, rest, atb Fu if not better Acute non-recurrent frontal vytwjyloj37URI, acute04/14/2024 04/14/2024hest ckiedmyafe10HeadacheViral upper respiratory tract zzurakusc85hronic vulvovaginitis ifficulty vmtzazs00 Family History Medical HistoryRelationNameCommentsCancerBrother 1RichardDiabetesBrother 1 RichardHypertensionBrother 1RichardDiabetesBrother 2MatthewHypertensionBrother 2 MatthewCancerFatherRichardHeart diseaseFatherRichardHeart failureFatherRichard HypertensionFatherRichardThyroid diseaseFatherRichardCancerMaternal Grandfather [facility] cancerMaternal GrandfatherJohnCancerMaternal GrandmotherPauline Multiple myelomaMaternal GrandmotherPaulineCancerMotherNancyDiabetesMotherNancy HyperlipidemiaMotherNancyHypertensionMotherNancyMultiple myelomaMotherNancy Thyroid diseaseMotherNancyCancerPaternal GrandfatherAlbertDiabetesSister 1Beth HypertensionSister 1BethUterine cancerSister 2HypertensionSister 3VickieThyroid diseaseSister 3VickieMelanomaNeg HxRelationNameStatusCommentsBrother 1Richard Brother 2MatthewFatherRichardDeceasedMaternal GrandfatherJohnMaternal GrandmotherPaulineMotherNancyAlivePaternal GrandfatherAlbertSister 1BethSister 2 Sister 3Vickie Social History Tobacco UseTypesPacks/DayYears UsedDateSmoking Tobacco: JdgelkRptklmmolm750 09/14/2000 - 09/14/2015Smokeless Tobacco: Never Tobacco Cessation:Counseling Given: Not Answered Alcohol UseStandard Drinks/WeekCommentsNot Currently0 (1 standard drink = 0.6 oz pure alcohol)Caffeine intake: 1 cup of coffee daily , Soda 1 per ppwD4710 Health LiteracyAnswerDate RecordedHow often do you need to have someone help you when you read instructions, pamphlets, or other written material from your doctor or pharmacy?Never11/09/2024Humiliation, Afraid, Rape, and Kick questionnaireAnswer Date RecordedWithin the last year, have you been afraid of your partner or ex-partner?No08/18/2023Within the last year, have you been humiliated or emotionally abused in other ways by your partner or ex-partner?No08/18/2023 Within the last year, have you been kicked, hit, slapped, or otherwise physically hurt by your partner or ex-partner?No08/18/2023Within the last year, have you been raped or forced to have any kind of sexual activity by your part ner or ex-partner?No08/18/2023Social Connection and Isolation PanelAnswerDate RecordedIn a typical week, how many times do you talk on the phone with family, friends, or neighbors?Three times a week11/09/2024How often do you get together with friends or relatives?Once a week11/09/2024How often do you attend christian or cheondoism services?1 to 4 times per year11/09/2024Do you belong to any clubs or organizations such as christian groups, unions, fraternal or athletic groups, or school groups?No11/09/2024How often do you attend meetings of the clubs or organizations you belong to?Never11/09/2024re you , , , , never , or living with a partner?Vromawi4411/09/2024UDIT-C AnswerDate RecordedQ1: How often do you have a drink containing alcohol?Never 11/09/2024Q2: How many drinks containing alcohol do you have on a typical day when you are drinking?Patient does not drink11/09/2024Q3: How often do you have six or more drinks on one occasion?Never11/09/2024Overall Financial Resource Strain (CARDIA)AnswerDate RecordedHow hard is it for you to pay for the very basics like food, housing, medical care, and heating?Not hard at all11/09/2024 PHQ-2AnswerDate RecordedPatient Health Questionnaire-2 Ufhmt12210/23/2023[facility] [place] of Occupational Health - Occupational Stress QuestionnaireAnswerDate RecordedDo you feel stress - tense, restless, nervous, or anxious, or unable to sleep at night because yourmind is troubled all the time - these days?Not at all 11/09/2024Exercise Vital SignAnswerDate RecordedOn average, how many days per week do you engage in moderate to strenuous exercise (like a brisk walk)?3 days 11/09/2024On average, how many minutes do you engage in exercise at this level? 20 min11/09/2024Hunger Vital SignAnswerDate RecordedWithin the past 12 months, you worried that your food would run out before you got the money to buymore. Never true11/09/2024Within the past 12 months, the food you bought just didn't last and you didn't have money to get more.Never true11/09/2024PRAPARE - TransportationAnswerDate RecordedIn the past 12 months, has lack of transportation kept you from medical appointments or from getting medications?No 11/09/2024In the past 12 months, has lack of transportation kept you from meetings, work, or from getting things needed for daily living?No11/09/2024 Housing Stability Vital SignAnswerDate RecordedIn the last 12 months, was there a time when you were not able to pay the mortgage or rent on time?No08/18/2023In the last 12 months, how many places have you lived?In the last 12 months, was there a time when you did not have a steady place to sleep or slept in ashelter (including now)?No08/18/2023Housing Stability Vital SignAnswerDate RecordedIn the last 12 months, was there a time when you were not able to pay the mortgage or rent on time?No11/09/2024In the past 12 months, how many times have you moved where you were living?t any time in the past 12 months, were you homeless or living in a mcc (including now)?No11/09/2024 CommentsNoSex and Gender InformationValueDate RecordedSex Assigned at BirthNot on fileLegal AboKnjtry55/15/2023 7:24 PM EDTGender IdentityNot on file Sexual OrientationNot on file Last Filed Vital Signs Vital SignReadingTime TakenCommentsBlood Ksfgchnr072/8607 11:42 AM EDT Vowdj852204/05/2025 11:42 AM PQQBhrwudjoqgz95.7 ??C (98.1 ??F)04/05/2025 11:42 AM EDTRespiratory Prku375004/05/2025 11:42 AM EDTOxygen Mlqvnjqstz37%04/05/2025 11:42 AM EDTInhaled Oxygen Concentration--Jekmsn356 kg (270 lb)04/05/2025 11:42 AM EDT Inqfua867.2 cm (5' 7 )11/15/2024 3:01 PM ESTBody Mass Index42.29011/15/2024 3:01 PM EST Plan of Treatment DateTypeDepartmentCare Team (Latest Contact Info)Bwczwfltcgr95/11/2026 11:10 AM EDTOffice Visit [facility] [address] [place] [address] Rose Taylor PA [address] [place] [address] Health MaintenanceDue DateLast DoneCommentsCT Plwazzgnztkq1965FIT-DNA 1965FIT1965FOBT1965 2372Xsgdcgpxwugpr1965COVID-19 Vaccine ( season)05/15/20258034Bswnajxxk65, 12/02/2023, 12/01/2023, Additional history jbhvjpTdfoplbvwnw74/01/202905/09/2018Colorectal Cancer Ygjnyrjzk35/01/2029Pap HcpnoVgelfpkoermv65/04/2023, 2Cervical Cancer ScreeningDiscontinuedHPV/QluvviVibenobtoose55/09/2024Influenza Vaccine DiscontinuedPneumococcal Vaccine: Pediatrics (0 to 5 Years) and At-Risk Patients (6 to 64 Years)Aged OutNo longer eligible based on patient's age to complete this topic Procedures Procedure NamePriorityDate/TimeAssociated DiagnosisCommentsMM TOMOSYNTHESIS SCREENING BI01/12/2025 4:32 PM EDT IGP, APT HPV,RFX 16/18,31Qdqbayg99/09/2024 12:00 AM EST Screening for malignant neoplasm of cervix THINPREP TIS PAP AND HPV MRNA E6/E7 WITH REFLEX TO HPV 16,18/70Dyiyxun82/04/2023 3:01 PM EST Screening for malignant neoplasm of cervix from Last 3 Months or Most Recently Relevant to Health Maintenance Results * MM TOMOSYNTHESIS SCREENING BI (01/12/2025 4:32 PM EDT)Anatomical Region LateralityModalityOtherSpecimen (Source)Anatomical Location / Laterality Collection Method / VolumeCollection TimeReceived Time01/12/2025 4:32 PM EDT Narrative 01/12/2025 4:33 PM EDT [facility] ?[address] ? [place] [address] ? Mammography Report ? Signed ? Patient: IGNACIO,WAYNE K ?MR#: [id number] ?? : 1965 ?Acct:[id number] ?? Age/Sex: 59 / F ?ADM Date: 01/12/25 ?? Loc: MAMMO ? Attending Dr: KLAUDIA PITTMAN ? Ordering Physician: KLAUDIA PITTMAN ? Results: ? Date of Service: 01/12/25 ?Follow Up: ? Procedure(s): MM tomosynthesis screening BI ?? Accession Number(s): [id number] ? cc: Bijal Antunez NP; KLAUDIA PITTMAN ? Patient Name: ? WAYNE IGNACIO ? MR#: [id number] ? : 1965 ? Exam Date: 01/12/2025 ?? Ordering Doctor: DR KLAUDIA PITTMAN ? RADIOLOGY REPORT ? PROCEDURE: ? MM TOMOSYNTHESIS SCREENING BI ? COMPARISON: ? MM TOMOSYNTHESIS SCREENING BI, 12/01/2023. ??MG MAMM SCREEN 3D ?? ISABELLA CAD, 10/28/2022. ??MG MAMM SCREEN 3D ISABELLA CAD, 10/23/2021. ??MG MAMM ISABELLA SCRN W ?? CAD DIG, 04/02/2015. ? INDICATIONS: ? Screening ? Calculator Name ? NCI Breast Cancer Risk Assessment Tool ?? 5 Year Breast Cancer Risk ? 1.00% ?? Lifetime Breast Cancer Risk ? 5.50% ?? Personal Breast Cancer ?No ?? Personal Ovarian Cancer ? No ?? Treatments ? None ?? Family Cancers ? Mother with multiple myeloma cancer at age 74. ? LOCATION: ? [facility] ? BREAST COMPOSITION: ? There are scattered areas of fibroglandular density. ? FINDINGS: ? DIAGNOSTIC CATEGORY 1--NEGATIVE. ? LEFT BREAST: ??No significant suspicious finding. ? RIGHT BREAST: ??No significant suspicious finding. ? RECOMMENDATIONS: ? ROUTINE MAMMOGRAM AND CLINICAL EVALUATION IN 12 MONTHS. ? PLEASE NOTE: ??A NORMAL MAMMOGRAM DOES NOT EXCLUDE THE POSSIBILITY OF BREAST ?? CANCER. ??A CLINICALLY SUSPICIOUS PALPABLE LUMP SHOULD BE BIOPSIED. ? Dictated by: Zeke Lux DO on 01/12/2025 at 16:20 ? Approved by: Zeke Lux DO on 01/12/2025 at 16:32 ? Dictated By: ?Zeke Lux M.D. ? Signed By: ?01/12/25 1633 ? DD/ ? TD/TT: ? Wine Consultant: Procedure Note Radiology, Radiologist, MD - 01/12/[address] [address] Mammography Report Signed Patient: WAYNE LOZADA KMR#: [id number] : 1965Acct:[id number] Age/Sex: 59 / FADM Date: 01/12/25 Loc: MAMMO Attending Dr: KLAUDIA PITTMAN Ordering Physician: KLAUDIA PITTMANResults: Date of Service: 01/12/25Follow Up: Procedure(s): MM tomosynthesis screening BI Accession Number(s): [id number] cc: Bijal Antunez NP; KLAUDIA PITTMAN Patient Name: WAYNE LOZADA MR#: [id number] : 1965 Exam Date: 01/12/2025 Ordering Doctor: DR KLAUDIA PITTMAN RADIOLOGY REPORT PROCEDURE: MM TOMOSYNTHESIS SCREENING BI COMPARISON: MM TOMOSYNTHESIS SCREENING BI, 12/01/2023. MG MAMM LNORPZ2M ISABELLA CAD, 10/28/2022. MG MAMM SCREEN 3D ISABELLA CAD, 10/23/2021. MG MAMM BILSCRN W CAD DIG, 04/02/2015. INDICATIONS: Screening Calculator Name NCI Breast Cancer Risk Assessment Tool 5 Year Breast Cancer Risk 1.00% Lifetime Breast Cancer Risk 5.50% Personal Breast Cancer No Personal Ovarian Cancer No Treatments None Family Cancers Mother with multiple myeloma cancer at age 74. LOCATION: [facility] BREAST COMPOSITION: There are scattered areas [...] M.D. Signed By:01/12/25 1633 DD/ 163 TD/TT: Wine Consultant: Authorizing ProviderResult TypeResult StatusKlaudia Pittman DOCLINISYNC IMAGING Final Result * IGP, APT HPV,RFX 16/18,45 (08/22/2024 12:00 AM EST)ComponentValueRef RangeTest MethodAnalysis TimePerformed AtPathologist SignatureDiagnosis:CommentLABCORP Comment:NEGATIVE FOR INTRAEPITHELIAL LESION OR MALIGNANCY.Specimen Adequacy: CommentLABCORPComment: Satisfactory for evaluation. ??Endocervical and/or squamous metaplastic cells (endocervical component) are present. Clinician Provided ICD10:CommentLABCORPComment:Z12.4Performed By:CommentLABCORP Comment:Leena Landaverde, Heat Treatment Technician (ASC)Cyto Comments.LABCORPNote: CommentLABCORPComment: The Pap smear is a screening test designed to aid in the detection of premalignant and malignant conditions of the uterine cervix. ??It is not a diagnostic procedure and should not be used as the sole means of detecting cervical cancer. ??Both false-positive and false-negative reports do occur. Test Methodology:CommentLABCORPComment: This liquid based ThinPrep(R) pap test was screened with the use of an image guided system. HPV AptimaNegativeNegativeLABCORPComment: This nucleic acid amplification test detects fourteen high-risk HPV types (16,18,31,33,35,39,45,51,52,56,58,59,66,68) without differentiation. Specimen (Source)Anatomical Location / LateralityCollection Method / Volume Collection TimeReceived McsiXdzb55 Narrative [facility] - 08/26/2024 3:06 PM EST Performed at: 01 - [address] ??[id number] Cellar Pumper: Vielka Stanley MD, Phone: ??[phone] Performed at: ??02 - [address] ??[id number] Cellar Pumper: Vielka Stanley MD, Phone: ??[phone] Specimen Comment: [id number] Specimen Comment: No. of containers..01 ThinPrep Vial Authorizing ProviderResult TypeResult StatusWiminnie MULLER BLOOD ORDERABLESFinal ResultPerforming OrganizationAddressCity/State/ZIP CodePhone Number [facility] * THINPREP TIS PAP AND HPV MRNA E6/E7 WITH REFLEX TO HPV 16,18/45 (08/17/2023 3:01 PM EST)ComponentValueRef RangeTest MethodAnalysis TimePerformed At Pathologist SignatureCLINICAL INFORMATIONQUESTComment:None givenLMPQUEST Comment:EBONY BSO 2017PREV. PAPQUESTComment:NEG HRTPREV. BXQUESTComment:NONE GIVENSOURCEQUESTComment:None givenSTATEMENT OF ADEQUACYQUESTComment: Satisfactory for evaluation. Endocervical/transformation zone component present. INTERPRETATION/RESULTQUESTComment: Cytology Results: Negative for intraepithelial lesion or malignancy. Glandular cells status post hysterectomy COMMENTQUESTComment: This Pap test has been evaluated with computer assisted technology. CYTOTECHNOLOGISTQUESTComment: BASIM RUDD(ASCP) CT screening location: [place] [address]. (ALWAYS MESSAGE)QUESTComment: EXPLANATORY NOTE: The Pap is a screening test for cervical cancer. It is not a diagnostic test and is subject to false negative and false positive results. It is most reliable when a satisfactory sample, regularly obtained, is submitted with relevant clinical findings and history, and when the Pap result is evaluated along with historic and current clinical information. HPV MRNA E6/E7Not DetectedNot DetectedQUESTComment: Methodology: Lead Informatic[employer] Developer-Mediated Amplification This assay detects E6/E7 viral messenger RNA (mRNA) from 14 high-risk HPV types (16,18,31,33,35,39,45,51,52,56,58,59,66,68). Cervical sources are required for HPV testing. If a vaginal source from a patient who has had a total hysterectomy with removal of cervix was submitted, please contact the testing laboratory for alternative testing options. For additional information, please refer to http://education.[employer]/faq/PPT264h6 (This link if provided for information/ educational purposes only.) Specimen (Source)Anatomical Location / LateralityCollection Method / Volume Collection TimeReceived EmfvUckm76/12/2022 3:01 PM EST08/18/2023 4:11 AM EST Narrative Resulting Agency Comment Performing Organization Information ?Site ID: [id number] ?Name: [facility] ?Address: [address] [place] [address], [address] [place] [id number] ?Director: Zhang Diez MD Authorizing ProviderResult TypeResult StatusWilliam Cielo Zain DOLAB CYTOLOGY ORDERABLESFinal ResultPerforming OrganizationAddressCity/State/ZIP CodePhone Number [facility] from Last 3 Months or Most Recently Relevant to Health Maintenance Insurance Care Teams Team MemberRelationshipSpecialtyStart DateEnd Date Charan Quinn MD PCP - GeneralFamily Medicine01/20/24 Bijal Antunez NP [address] [place] [address] PCP - [employer]12/14/23 Bijal Antunez NP Nurse PractitionerFaDonalsonville Hospital01/20/24
--- OUTSIDE RECORDS SUMMARY | 2025-08-03 11:09 | XMS_ITS | Clinical Summary ---
Author Organization [employer] tem Address [id number] [address] [place] [address] Care Team Providers Care Child Welfare Director Name Role Phone Bijal Antunez APRN-QUALITY CONTROL ASSOCIATE Primary Care Provider Allergies Active AllergyReactionsCriticalityNoted DateCommentsAce InhibitorsAngioedema 03/23/2025 Medications MedicationSigDispense QuantityRefillsLast FilledStart DateEnd DateStatus hydroCHLOROthiazide (HYDRODIURIL) 25 mg tablet Take 1 tablet (25 mg total) by mouth 2 (two) times a day before meals.Active atorvastatin (LIPITOR) 40 mg tablet Take 1 tablet (40 mg total) by mouth once daily at bedtime.08/17/2024ctive cholecalciferol (VITAMIN D3) 1,000 units tablet Take 1 tablet (1,000 Units total) by mouth nightly.Active estradioL (ESTRACE) 2 mg tablet Take 1 tablet (2 mg total) by mouth once daily at bedtime.08/22/2024ctive ferrous sulfate 325 (65 FE) MG tablet Take 1 tablet (325 mg total) by mouth nightly.Active nystatin-triamcinolone (MYCOLOG II) cream Apply 1 Application topically as needed (rash).11/16/2024tive albuterol (PROVENTIL HFA;VENTOLIN HFA) 90 mcg/actuation inhaler Inhale 2 puffs every 6 (six) hours as needed for wheezing.Active Active Problems ProblemNoted DateDiagnosed DateAbdominal pain03/23/2025holedocholithiasis 03/22/2025 Immunizations No known immunizations Family History Medical HistoryRelationNameCommentsMultiple myelomaMotherRelationNameStatus CommentsMother Social History Tobacco UseTypesPacks/DayYears UsedDateSmoking Tobacco: FormerCigarettes Smokeless Tobacco: Never Tobacco Cessation:Counseling Given: Not Answered Alcohol UseStandard Drinks/WeekCommentsNever0 (1 standard drink = 0.6 oz pure alcohol)[facility] UtilitiesAnswerDate RecordedIn the past 12 months has the electric, gas, oil, or water company threatened to shut off services in your home?No 03/23/2025Overall Financial Resource Strain (CARDIA)AnswerDate RecordedHow hard is it for you to pay for the very basics like food, housing, medical care, and heating?Not hard at all03/23/2025PHQ-2AnswerDate RecordedTotal Zvevn200 PRAPARE - TransportationAnswerDate RecordedIn the past 12 months, has lack of transportation kept you from medical appointments or from getting medications?No 03/23/2025In the past 12 months, has lack of transportation kept you from meetings, work, or from getting things needed for daily living?No03/23/2025 Housing InstabilityAnswerDate RecordedAre you worried or concerned that in the next two months you may not have stable housing that you own, rent or stay in as a part of a household?No03/23/2025hildcareAnswerDate RecordedChildcareUnknown 02/23/2019EmploymentAnswerDate HhcblaioRuruobyldkOxbskoq25/12/2019Hunger ScreeningAnswerDate RecordedWithin the past 12 months we worried whether our food would run out before we got money to buy more.Never True03/24/2025Within the past 12 months the food we bought just didn't last and we didn't have money to get more.Never True03/24/2025Purpose - LifeAnswerDate RecordedPurpose and direction in chpfXoterpf47/11/2021CommentsUnknownSex and Gender InformationValueDate RecordedSex Assigned at BirthNot on fileLegal SexFemale 04/19/2015 11:39 AM EDTGender IdentityNot on fileSexual OrientationNot on file Last Filed Vital Signs Vital SignReadingTime TakenCommentsBlood Txtwozex633/8607 2:00 PM EDT Pbjpv371403/25/2025 2:00 PM MHZDzcakecairx06.4 ??C (97.5 ??F)03/25/2025 2:00 PM EDTRespiratory Qmhw548703/25/2025 2:00 PM EDTOxygen Jhhqxbmbzk74%03/25/2025 2:00 PM EDTInhaled Oxygen Concentration--Bbcvmf042.9 kg (270 lb 15.1 oz)03/25/2025 11:08 AM MXKFmstjk129.6 cm (5' 6 )03/25/2025 11:08 AM EDTBody Mass Index43.73 03/25/2025 11:08 AM EDT Plan of Treatment Health MaintenanceDue DateLast DoneCommentsAdult BMI Follow Up Plan1983 DTaP,Tdap and Td Vaccines (1 - Tdap)1984Pap Smear1986Zoster (Shingles) Vaccine (1 of 2)2015RSV ( or age 60+ yrs) (1 - Risk 60- 74 years 1-dose series)2025Influenza Qzwtvac2705/15/2025Depression Screening Tobacco Hftdrrwwk59dult BMI Screening Goals GoalPatient Goal TypeAssociated ProblemsRecent ProgressPatient-Stated?Author HOME Daniela Mcarthur RN Note: Evaluation of progress towards goal: Patient plans on safe DC home Medical Devices Not on file Insurance Advance Directives * Full Code (Latest Code Status on File) Date ActivatedDate InactivatedComments03/23/2025 1:05 PM03/25/2025 7:46 PM Care Teams Team MemberRelationshipSpecialtyStart DateEnd Date Bijal Antunez, [employer] MACHINE OPERATOR-QUALITY CONTROL ASSOCIATE PCP - GeneralNbing Practitioner12/29/24
[2025-08-03 11:38] LABS: Hematocrit 36.4 % (36.0-48.0); Hemoglobin 12.4 g/dL (12.0-16.0); Immature Granulocytes Abs Auto 0.01 10^3/uL (0.00-0.03); Immature Granulocytes Pct Auto 0.2 % (0.0-0.5); Lymphocytes Absolute Auto 1.1 10^3/uL (1.2-3.8); Mean Corpuscular HGB Conc 34.1 g/dL (29.9-35.2); Mean Corpuscular Hemoglobin 32.2 pg (26.7-34.0); Mean Corpuscular Volume 94.5 fL (81.0-99.0); Platelet Count 282 10^3/uL (150-450); Red Blood Count 3.85 10^6/uL (4.20-5.40); White Blood Count 5.7 10^3/uL (4.0-11.0)
[2025-08-03 11:48] LABS: Glucose Urine UA NEGATIVE (NEGATIVE)
[2025-08-03 12:04] LABS: Cast Seen? NONE SEEN #/LPF (NONE SEEN); Crystals Seen? None Seen #/HPF (None Seen)
[2025-08-03 12:36] LABS: Alanine Aminotransferase 28 U/L (14-59); Albumin Globulin Ratio 0.9; Albumin Level 3.4 g/dL (3.4-5.0); Alkaline Phosphatase 71 U/L (46-116); Anion Gap 12.7; Aspartate Amino Transferase 22 U/L (15-37); Blood Urea Nitrogen 16.0 mg/dL (7.0-18.0); Calcium 9.0 mg/dL (8.5-10.1); Carbon Dioxide 30.1 mmol/L (21.0-32.0); Chloride 102 mmol/L (98-107); Cholesterol 159 mg/dL (<=200); Estimated GFR (African America >60 (>=60 mL/min/1.73m^2); Estimated GFR (Non-African Ame >60 (>=60 mL/min/1.73m^2); Globulin 3.6 g/dL; Glucose 96 mg/dL (74-106); HDL Cholesterol 49 mg/dL (40-60); Magnesium 1.7 mg/dL (1.8-2.4); Potassium 3.8 mmol/L (3.5-5.1); Sodium 141 mmol/L (136-145); Thyroid Stimulating Hormone 1.066 uIU/mL (0.358-3.740); Total Protein 7.0 g/dL (6.4-8.2); Triglycerides 220 mg/dL (<=150); VLDL CHOLESTEROL 44.0 mg/dL
[2025-08-03 13:17] LABS: Iron 99.0 ug/dL (50.0-170.0); Percent Iron Saturation 28.3 %; Total Iron Binding Capacity 350.0 ug/dL (250.0-450.0)
== END 2025-08-03 11:06 | disposition home or self-care (01) ==
LOC: LAB 11:07
PROVIDERS: PCP Nurse Practitioner; Visit Provider Nurse Practitioner
DX: R60.0 Localized edema (principal); I10 Essential (primary) hypertension; E03.9 Hypothyroidism, unspecified; E78.2 Mixed hyperlipidemia; E55.9 Vitamin D deficiency, unspecified; E61.1 Iron deficiency
CPT/HCPCS: 36415; 80053; 80061; 81001; 82043; 82306; 82570; 83540; 83550; 83735; 84439; 84443; 85025